=== PATIENT | male | born 1940 | race Caucasian/White ===

== ENCOUNTER → 2017-07-30 13:22 | Outpatient (CLI) | payer MEDICARE, OTHER, SELFPAY ==
--- NOTE | 2017-07-30 13:26 | CT_ITS ---
STUDY: CT BRAIN WITHOUT CONTRAST REASON FOR EXAM: Male, 77 years old. Closed head injury. RADIATION DOSAGE (If Supplied By Facility): CTDIvol = ( 44.99 ) mGy, DLP = ( 829.85 ) mGycm TECHNIQUE: Transaxial CT imaging of the brain was performed without administration of intravenous contrast material. Individualized dose optimization techniques were used for this CT. COMPARISON: None. FINDINGS: Normal soft tissue structures. Normal calvarium. There is mild cerebral atrophy with widening of the extra-axial spaces and ventricular dilatation. Normal white matter tracts of the cerebral hemispheres. Normal basal ganglia and thalami. Normal brainstem. There is mild cerebellar atrophy. There is no intracranial hemorrhage. There are no findings of an acute ischemic infarction. Atherosclerotic calcification of the vertebral arteries and the cavernous portions of the internal carotid arteries bilaterally. Mucosal thickening along the inferior aspect of the right maxillary sinus. CT/Brain/Head without Contrast IMPRESSION: Chronic involutional changes of the brain. Mucosal thickening along the inferior aspect of the right maxillary sinus. Electronically Signed: Zion Longo MD at 14:13 EST Tel [phone], Service support ,
--- NOTE | 2017-07-30 13:27 | CT_ITS ---
STUDY: CT CERVICAL SPINE WITHOUT CONTRAST REASON FOR EXAM: Male, 77 years old. Neck pain. Closed head injury. RADIATION DOSAGE (If Supplied By Facility): CTDIvol = ( 26.26 ) mGy, DLP = ( 529.52 ) mGycm TECHNIQUE: High resolution transaxial imaging was performed without contrast material. Sagittal and coronal images were reconstructed. Individualized dose optimization techniques were used for this CT. COMPARISON: None FINDINGS: Mucosal thickening of the mastoid air cells on the left side. Normal craniovertebral junction. There are degenerative changes of the anterior atlantoaxial articulation. Normal odontoid process. Normal cervical lordosis. Normal vertebral bodies and posterior osseous elements. C2-3: Normal endplates. Normal disc height and morphology. Normal central canal and intervertebral neuroforamina. C3-4: Normal endplates. Normal disc height and morphology. Normal central canal and intervertebral neuroforamina. C4-5: Normal endplates. Normal disc height and morphology. Normal central canal and intervertebral neuroforamina. C5-6: Marked degree of disc space narrowing and degeneration with a spondylosis and uncovertebral arthrosis. Moderate degree of bilateral neural foraminal stenosis. C6-7: Moderate degree of disc space narrowing. Normal visualized soft tissue structures. CT/Spine Cervical without Contras IMPRESSION: Multilevel degenerative changes, as described above. Electronically Signed: Zion Longo MD at 14:16 EST Tel [phone], Service support ,
== END ==
PROVIDERS: Family Provider Family Medicine Geriatric Medicine; PCP Family Medicine Geriatric Medicine; Visit Provider Family Medicine Geriatric Medicine
DX: M54.2 Cervicalgia (principal); S09.90XA Unspecified injury of head, initial encounter; X58.XXXA Exposure to other specified factors, initial encounter; R55 Syncope and collapse
CPT/HCPCS: 36415; 70450; 72125; 80053; 82550; 83874; 84443; 84484; 85025

== ENCOUNTER → 2017-07-31 11:33 | Outpatient (CLI) | payer MEDICARE, OTHER, SELFPAY ==
--- NOTE | 2017-07-31 11:34 | CT_ITS ---
STUDY: CT CHEST WITHOUT CONTRAST REASON FOR EXAM: Male, 77 years old. Cough, exertional shortness of breath, syncope RADIATION DOSAGE (If Supplied By Facility): CTDIvol = ( 18.87 ) mGy, DLP = ( 688.62 ) mGycm TECHNIQUE: Transaxial 2.5 imaging was performed without the administration of intravenous contrast material. Multiplanar coronal and sagittal images were reformatted. This examination is limited for the evaluation of solid organs and vascular structures due to the lack of intravenous contrast. Individualized dose optimization techniques were used for this CT. COMPARISON: None. FINDINGS: There is hyperinflation, very subtle nodular disease in the periphery of the bilateral lower lobes, right middle lobe and lingula. There is additional compression of peripheral dependent parenchyma in the right greater than left lower lobe with mild distortion of parenchyma likely chronic in nature. No focal nodule, masses or air bronchograms. There is no demonstrated pleural abnormality. Normal heart and pericardium. There are calcifications of the coronary arteries. There are multiple small lymph nodes within the mediastinum, which are normal in size and morphology most compatible with reactive lymph hyperplasia. Normal hilar regions. Normal unenhanced pulmonary arteries. There is atherosclerotic calcification of the aortic arch with tortuosity and elongation of the aortic arch and descending thoracic aorta. There are multi-level degenerative changes of the thoracic spine. There is a large hiatal hernia. Right hepatic cyst 1.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 Suspect component of superimposed pneumonitis. Reactive lymphoid hyperplasia in the mediastinum suspected. Other nonacute findings as outlined above.. Electronically Signed: Mckenna Gaines MD at 3:43 EST , Service support ,
== END ==
PROVIDERS: Family Provider Family Medicine Geriatric Medicine; PCP Family Medicine Geriatric Medicine; Visit Provider Nurse Practitioner Acute Care
DX: R06.09 Other forms of dyspnea (principal); R07.9 Chest pain, unspecified; M54.2 Cervicalgia; S09.90XA Unspecified injury of head, initial encounter; X58.XXXA Exposure to other specified factors, initial encounter; R55 Syncope and collapse
CPT/HCPCS: 36415; 70450; 71250; 72125; 80053; 82550; 83874; 84443; 84484; 85025

== ENCOUNTER → 2017-08-22 07:57 | Outpatient (CLI) | payer MEDICARE, OTHER, SELFPAY ==
[2017-08-22 07:10] VITALS: BP 132/78; BMI 29.3
[2017-08-25 12:06] LABS: Alternaria alternata <0.10 kU/L (Class 0); Aspergillus fumigatus <0.10 kU/L (Class 0); Bahia Grass <0.10 kU/L (Class 0); Bermuda Grass <0.10 kU/L (Class 0); Bluegrass, Kentucky <0.10 kU/L (Class 0); Cat Hair/Dander, Standard <0.10 kU/L (Class 0); Cedar, Mountain <0.10 kU/L (Class 0); Cladosporium herbarum <0.10 kU/L (Class 0); Cockroach, American <0.10 kU/L (Class 0); D farinae Mite <0.10 kU/L (Class 0); D pteronyssinus <0.10 kU/L (Class 0); Dog Epithelia <0.10 kU/L (Class 0); Elm, American White <0.10 kU/L (Class 0); Hazelnut Tree <0.10 kU/L (Class 0); Hickory, White <0.10 kU/L (Class 0); Johnson Grass <0.10 kU/L (Class 0); Maple/Box Elder <0.10 kU/L (Class 0); Mucor racemosus <0.10 kU/L (Class 0); Mugwort <0.10 kU/L (Class 0); Mulberry, White <0.10 kU/L (Class 0); Oak, White <0.10 kU/L (Class 0); Penicillium chrysogen <0.10 kU/L (Class 0); Pigweed, Rough <0.10 kU/L (Class 0); Plantain, English <0.10 kU/L (Class 0); Ragweed, Short/Common <0.10 kU/L (Class 0); Sheep Sorrel(Dock) <0.10 kU/L (Class 0); Stemphylium herbarum <0.10 kU/L (Class 0); Sweet Gum <0.10 kU/L (Class 0); Sycamore, American <0.10 kU/L (Class 0)
[2017-08-25 13:00] LABS: Nettle <0.10 kU/L (Class 0)
== END ==
PROVIDERS: Family Provider Family Medicine Geriatric Medicine; PCP Family Medicine Geriatric Medicine; Visit Provider Internal Medicine Critical Care Medicine
DX: J30.9 Allergic rhinitis, unspecified (principal)
CPT/HCPCS: 36415; 86003

== ENCOUNTER → 2017-09-16 10:53 | Outpatient (CLI) | payer MEDICARE, OTHER, SELFPAY ==
[2017-08-20 15:19] VITALS: BP 120/76; BMI 29.2
--- NOTE | 2017-09-16 10:58 | ECHOD_ITS ---
Reason For Study: DYSPNEA Procedure This was a 2D Doppler, Color Flow transthoracic echocardiogram. Exam performed in department. Left Ventricle Mild concentric left ventricular hypertrophy. The estimated ejection fraction is 65 %. Stage 1 diastolic dysfunction. No regional wall motion abnormalities noted. Right Ventricle Normal size and thickness. Normal systolic function. Atria Normal left atrium. Normal right atrium. Normal atrial septum. Bubble contrast study negative for right to left interatrial shunt. Mitral Valve The mitral valve is structurally normal. No prolapse or stenosis seen. Trivial mitral valve insufficiency. Tricuspid Valve Normal tricuspid valve. Trivial tricuspid valve insufficiency. Right ventricular systolic pressure estimated to be 38 mmHg. Mild pulmonary hypertension. Aortic Valve Normal aortic valve. Trisinus/trileaflet aortic valve. Pulmonic Valve Normal pulmonic valve. Trivial pulmonic valve insufficiency. Great Vessels Normal aortic root. Normal arch. Normal inferior vena cava. Inferior vena cava collapse with sniff. Pericardium/Pleural No pericardial effusion. Medication 22 gauge I.V. with prn adaptor inserted into right arm. Performed a rapid injection of agitated mix of 9 cc saline and 1cc air to assess for atrial septal defect. MMode/2D Measurements & Calculations LVIDd: 4.1 cm IVSd: 1.2 cm Ao root diam: 3.0 cm LVIDs: 2.7 cm LVPWd: 1.3 cm LA dimension: 3.6 cm RVDd: 3.5 cm FS: 35.3 % LAV(MOD-bp): 62.0 ml EDV(MOD-sp4): 138.0 ml EDV(MOD-sp2): 114.0 ml LAV(MOD-bp) Indexed: 26.3 ml/m2 ESV(MOD-sp4): 40.1 ml EF(MOD-sp2): 60.9 % LAV(MOD-sp2): 53.9 ml EF(MOD-sp4): 71.0 % LAV(MOD-sp4): 68.7 ml SV(MOD-sp4): 98.0 ml SV(MOD-sp2): 69.4 ml LA A4 area: 23.2 cm2 RA A4 area: 16.7 cm2 Doppler Measurements & Calculations MV E max kendall: 73.8 cm/sec Ao V2 max: 177.2 cm/sec AI max kendall: 402.1 cm/sec MV A max kendall: 92.9 cm/sec Ao max P.6 mmHg AI max P.7 mmHg MV E/A: 0.79 AI dec slope: 242.8 cm/sec2 AI P1/2t: 485.0 msec LV V1 max: 167.9 cm/sec PA V2 max: 186.0 cm/sec TR max kendall: 267.4 cm/sec LV V1 max P.3 mmHg TR max P.9 mmHg Interpretation Summary Mild concentric left ventricular hypertrophy. The estimated ejection fraction is 65 %. Stage 1 diastolic dysfunction. Bubble contrast study negative for right to left interatrial shunt. Trivial mitral valve insufficiency. Trivial tricuspid valve insufficiency. Right ventricular systolic pressure estimated to be 38 mmHg. Mild pulmonary hypertension. There is no comparison study available. Ordering Physician: Baltazar Tony Referring Physician: Mars Eddy Chi Performed By: Riri Jeff RDCS, RVT
== END ==
PROVIDERS: Family Provider Family Medicine Geriatric Medicine; PCP Family Medicine Geriatric Medicine; Visit Provider Internal Medicine Cardiovascular Disease
DX: R55 Syncope and collapse (principal)
CPT/HCPCS: 93306; A4216

== ENCOUNTER → 2017-09-18 10:34 | Outpatient (CLI) | payer MEDICARE, OTHER, SELFPAY ==
[2017-08-20 15:19] VITALS: BP 120/76; BMI 29.2
--- NOTE | 2017-09-18 10:35 | STE_ITS ---
Reason For Study: DYSPNEA Stress Results Protocol: Yazan Protocol Maximum Predicted HR: 142 bpm Target HR: 121 bpm% Max imum Predicted HR: 100 % DurationHeart Rate Stage (mm:ss) (bpm) BP BASELINE 70 112/62 STAGE 1 3:00 11 6 168/72 STAGE 2 3:00 13 6 180/64 STAGE 3 0:35 14 2 / RECOVERY 100 130/7 8 Stress Duration: 6:35 mm:ss Maximum Stress HR: 142 bpm Baseline Echocardiogram Findings The estimated ejection fraction is 65 %. Stress Echo Wall motion Data Resting WMIntermediate WMStress WM Resting Wall Motion Wall Motion Stress No regional wall motion No regional wall motion abnormalities noted. abnormalities noted. EKG Data Normal intervals are noted. The patient exercised according to the regular Yazan protocol for a total duration of 6:35. The maximum heart rate attained was 146 beats per minute. This was 102% of maximum predicted heart rate. The patient exercised into stage 3 of the Yazan protocol. During stress, there were no ST or T wave changes noted to suggest ischemia. No clinical angina was noted. Interpretation Summary The estimated ejection fraction is 65 %. Normal normal adequate treadmill echocardiogram. Negative for ischemia by EKG and echocardiographic criteria. No anginal symptoms noted. Rare PAC and PVCs during exercise and into recovery. Appropriate blood pressure response to exercise. Average exercise capacity for age. Test terminated due to the attainment of target heart rate and dyspnea. Final LVEF is 75%. Patient tolerated procedure well. No complications. Ordering Physician: Baltazar Tony Referring Physician: Baltazar Tony Performed By: Estephanie Goldman, DANIA, RVT
== END ==
PROVIDERS: Family Provider Family Medicine Geriatric Medicine; PCP Family Medicine Geriatric Medicine; Visit Provider Internal Medicine Cardiovascular Disease
DX: R55 Syncope and collapse (principal); R06.00 Dyspnea, unspecified
CPT/HCPCS: 93017; 93350

== ENCOUNTER → 2017-12-06 20:12 | Outpatient (CLI) | payer MEDICARE, OTHER, SELFPAY | PROVIDERS: Family Provider Family Medicine Geriatric Medicine; PCP Family Medicine Geriatric Medicine; Visit Provider Nurse Practitioner Acute Care | DX: G47.19 Other hypersomnia (principal) | CPT/HCPCS: 95810 ==

== ENCOUNTER → 2018-01-02 19:58 | Outpatient (CLI) | payer MEDICARE, OTHER, SELFPAY | PROVIDERS: Family Provider Family Medicine Geriatric Medicine; PCP Family Medicine Geriatric Medicine; Visit Provider Nurse Practitioner Acute Care | DX: G47.33 Obstructive sleep apnea (adult) (pediatric) (principal) | CPT/HCPCS: 95811 ==

== ENCOUNTER → 2018-02-18 15:26 | Outpatient (CLI) | payer MEDICARE, OTHER, SELFPAY ==
[2018-02-18 18:19] LABS: Absolute Lymphocyte Count 1.15 X10^3/ul (0.83-4.51); Absolute Neutrophil Count 4.9 X10^3/uL (2.0-7.7); Basophil# 0.02 X10^3/uL; Basophil% 0.3 % (0-1); Eosinophil# 0.14 X10^3/uL; Hematocrit 28.9 % (40-54); Hemoglobin 8.3 g/dl (13.0-16.5); Lymphocyte # 1.15 X10^3/ul (4.0); Lymphocyte % 16.5 % (19-41); Mean Corp Hgb Conc 28.7 g/gl (32-36); Mean Corpuscular Hgb 19.9 pg (27.0-32.0); Mean Corpuscular Volume 69.3 fL (80-94); Monocyte# 0.72 X10^3/uL; Monocyte% 10.4 % (0-10); Neutrophil # 4.92 X10^3/uL (2.7-7.7); Neutrophil % 70.8 % (47-70); Platelet Count 432 K/mm3 (150-450); RBC Distribution Width CV 19.2 % (11.6-14.6); RBC Distribution Width SD 47.6 fl (35.1-43.9); Red Blood Count 4.17 M/mm3 (4.6-6.2)
[2018-02-18 18:24] LABS: Differential Indicated SCAN CRITERIA MET; POSITIVE COUNT NO; POSITIVE DIFFERENTIAL NO; POSITIVE MORPHOLOGY YES
[2018-02-18 18:37] LABS: ALB/GLOB Ratio 0.9 RATIO (0.9-2.4); AST(SGOT) 16 U/L (15-37); Alanine Aminotransfer ALT/SGPT 23 U/L (16-61); Albumin, Serum 3.7 g/dL (3.2-5.0); Alkaline Phosphatase 51 U/L (45-117); Anion Gap 6 (5-15); BUN 18 mg/dL (7-18); BUN/Creat Ratio 14.9 RATIO (10-20); Calcium,Total 8.3 mg/dL (8.5-10.1); Chloride 108 mmol/L (98-107); Creatinine, Serum 1.21 mg/dL (0.70-1.30); EST Glomerular Filtration Rate 62 mL/min (>60); Est Glom Filt Rate - Afr Amer 74 mL/min (>60); Glucose 93 mg/dL (74-106); Potassium 4.2 mmol/L (3.5-5.1); Protein, Total 7.7 g/dL (6.4-8.2); Sodium Level 140 mmol/L (136-145); Thyroid Stim Hormone (TSH) 1.23 uIU/mL (0.358-3.74)
[2018-02-18 19:07] LABS: Platelet Estimate SLT INC (ADEQ)
[2018-02-18 19:08] LABS: Anisocytosis 1+; Hypochromasia 2+; Microcytosis 1+
[2018-02-19 09:48] LABS: Vitamin D,25 Hydroxy 30.9 ng/mL (29.95-100.01)
== END ==
PROVIDERS: Family Provider Family Medicine Geriatric Medicine; PCP Family Medicine Geriatric Medicine; Visit Provider Family Medicine Geriatric Medicine
DX: E23.6 Other disorders of pituitary gland (principal); E55.9 Vitamin D deficiency, unspecified; I10 Essential (primary) hypertension
CPT/HCPCS: 36415; 80053; 82306; 84403; 84443; 85025

== ENCOUNTER → 2018-02-20 10:22 | Outpatient (CLI) | payer MEDICARE, OTHER, SELFPAY ==
[2018-02-20 12:52] LABS: Hematocrit 29.6 % (40-54); Hemoglobin 8.3 g/dl (13.0-16.5); Immature Platelet Fraction 1.2 % (1.0-7.9); Mean Corpuscular Hgb 19.4 pg (27.0-32.0); Mean Corpuscular Volume 69.3 fL (80-94); Mean Platelet Vol. 8.4 fl (6.2-12.0); Platelet Count 375 K/mm3 (150-450); RBC Distribution Width CV 18.9 % (11.6-14.6); RBC Distribution Width SD 47.7 fl (35.1-43.9); RET-HE 16.6 pg (30-35); Red Blood Count 4.27 M/mm3 (4.6-6.2); Reticulocyte Count 1.07 % (0.5-1.5); White Blood Count 5.5 K/mm3 (4.4-11.0)
[2018-02-20 12:55] LABS: Scan Indicated on CBC? Y/N YES- FLAGS NOTED
[2018-02-20 13:05] LABS: Ferritin 5 ng/mL (26-388); Iron 21 ug/dL (65-175); Iron Binding Capacity,Total 439 ug/dL (250-450); PERCENT IRON SATURATION 4.8 % (15.0-55.0)
[2018-02-21 10:04] LABS: Vitamin B12 > 2000 pg/mL (211-911)
== END ==
PROVIDERS: Family Provider Family Medicine Geriatric Medicine; PCP Family Medicine Geriatric Medicine; Visit Provider Family Medicine Geriatric Medicine
DX: D64.9 Anemia, unspecified (principal)
CPT/HCPCS: 36415; 82607; 82728; 83540; 83550; 85027; 85045

== ENCOUNTER 2018-03-04 09:55 | Day surgery (SDC) | payer MEDICARE, OTHER, SELFPAY ==
[2018-03-04] VITALS (8 sets, daily range): BP systolic 118–183; BP diastolic 53–107; PULSE 70–76; RESP 14–16; TEMP 36.1–37.6; O2SAT 94–100; BMI 29.3
--- NOTE | 2018-03-04 | IMM_PTH ---
PATIENT: CINDY COSTA LOC: EN U#:[id number] AGE/SX: 77/M ROOM: RE03/04/[address]: Dr. Gaston Rausch MD : 1940 BED: DIS: 03/04/2018 SPEC #: [id number] RECD: 03/05/18 13:15 STATUS: BLANKA REVijaya #: [id number] LONNIE: 03/04/18 00:[address]: Gaston Rausch DEPT: IMMUNOHISTOCHEMISTRY RECD BY: Marly Chavez ENTERED: 03/05/18 13:15 SP TYPE: IMMUNO OTHR DR: Dr. Mars Eddy MD Tissues: B - Stomach, NOS Procedures: H Pylori (initial) PHYSICIAN & INSTITUTION [place] [id number] SPECIMEN INFORMATION: Tissue Source: B ? Antral biopsy Clinical Info: Iron deficiency anemia Specimen Number: [id number] CPT code: 24484 METHODOLOGY: Deparaffinized sections of prefer/formalin-fixed tissue or PAP/DQ stained slides are incubated with monoclonal/polyclonal antibodies/oligonucleotide probes. Localization is made via biotin free immunoperoxidase method. Appropriate controls are performed and reacted as expected. Results on target cell population are indicated in the following table: RESULTS: ANTIBODY / CLONE RESULT Block B H Pylori (polyclonal) negative These tests were developed and their performance characteristics determined by [facility]. They may not have been cleared or approved by the [place]. Food and Drug Administration. The FDA has determined that such clearance or approval is not necessary. INTERPRETATION: B. Antral biopsy: Negative for Helicobacter pylori organisms. SJ:carols 03/06/18
--- NOTE | 2018-03-04 | COLBX_PTH ---
PATIENT: CINDY COSTA LOC: EN U#:[id number] AGE/SX: 77/M ROOM: RE03/04/[address]: Dr. Gaston Rausch MD : 1940 BED: DIS: 03/04/2018 SPEC #: [id number] RECD: 03/04/18 14:33 STATUS: BLANKA SCOTT #: [id number] LONNIE: 03/04/18 00:[address]: Gaston Rausch DEPT: SURGICAL PATHOLOGY RECD BY: Neftali Knight ENTERED: 03/04/18 14:34 SP TYPE: COLON BX OTHR DR: Dr. Mars Eddy MD Tissues: A - Duodenum, NOS B - Gastric mucous membrane C - Esophageal mucous membrane D - COLON BIOPSY Procedures: Special Stain Group II Surgery Specimen Level IV Alcian Blue/PAS (control) HEADER OPERATION: Colonoscopy, EGD (MOD) PRE-OP DIAGNOSIS: Iron deficiency anemia TISSUE SUBMITTED: A ? Duodenal biopsy, B ? Antral biopsy, C ? Distal esophagus biopsy, D ? Random colonic biopsy MICROSCOPIC DIAGNOSIS A. Duodenal biopsy: A fragment of duodenal mucosa with mild nonspecific chronic inflammation. B. Antral biopsy: Mild gastritis. Focal intestinal metaplasia (goblet cell metaplasia). See comment. C. Distal esophagus, biopsy: Fragments of squamous epithelium with minimal chronic inflammation. D. Colon, random biopsy: Fragments of colonic mucosa with pigment laden macrophages consistent with melanosis coli. SJ:carlos 03/05/18 COMMENT B. The results of immunohistochemistry for Helicobacter pylori will be reported separately ([id number]). Alcian blue/PAS stain with matched control is used in the evaluation of the specimen. MICROSCOPIC DESCRIPTION Slides are reviewed. B. The specimen shows fragments of gastric mucosa with chronic inflammatory cell infiltrates in the lamina propria consisting of lymphocytes and plasma cells, consistent with mild chronic gastritis. Focal intestinal metaplasia is also noted. GROSS DESCRIPTION A - Received in fixative is one container labeled with the patient's name and designated biopsy duodenum. The specimen consists of one irregular fragment of light lee soft tissue that measures 0.5 x 0.2 x 0.1 cm. The specimen is totally submitted in one cassette. B - Received in fixative is one container labeled with the patient's name and designated biopsy gastric antrum. The specimen consists of two irregular fragments of light lee soft tissue that in aggregate measure 0.4 x 0.3 x 0.1 cm. The specimen is totally submitted in one cassette. C - Received in fixative is one container labeled with the patient's name and designated distal esophagus biopsy. The specimen consists of two irregular fragments of light lee soft tissue that in aggregate measure 0.3 x 0.2 x 0.1 cm. The specimen is totally submitted in one cassette. D - Received in fixative is one container labeled with the patient's name and designated random colon biopsy. The specimen consists of multiple irregular fragments of brownish soft tissue that in aggregate measure 1 x 0.3 x 0.1 cm. The specimen is totally submitted in one cassette. / SJ:rg 03/04/18 TC:5 CPT: 89067 x4, 17978
--- NOTE | 2018-03-04 12:52 | PCM.OPRPT ---
Problem List (1) Iron deficiency anemia Status: Acute Qualifiers: Iron deficiency anemia type: unspecified iron deficiency Report of Operation Date of Procedure: 03/04/18 Pre-Operative Diagnosis: Iron deficiency anemia Post-Operative Diagnosis: Small hiatal hernia, minimal antral and duodenal erythema. No evidence for active upper gastrointestinal bleeding. Severe melanosis coli, extensive descending and sigmoid diverticulosis, no evidence for active colonic bleeding Surgery/Procedure Performed:: Esophagogastroduodenoscopy with biopsies with cold forceps. Colonoscopy Description of Surgical Findings:: Amount informed consent was obtained. 77-year-old gentleman was taken to the endoscopy suite. He had his oropharynx anesthetized with Topex. He was placed in left lateral decubitus position. Throughout the procedure in aliquots she received total 150 mg of Demerol and 5 mg Versed is intravenous sedation. Videogastroscope was inserted into the esophageal inlet. The proximal mid distal esophagus did not appear to be remarkable. The EG junction was at 40 cm. Small hiatal hernia noted. No acute findings of reflux. The scope was advanced in the stomach very minimal amount of antral erythema noted. The scope was advanced through the pylorus the first and second portion of the duodenum were inspected no gross abnormalities. Minimal erythema of the duodenal bulb. Cold forcep biopsy was obtained of the duodenal bulb and of the antrum. The scope was withdrawn back into the stomach retroflexed the EG junction cardia inspected. The hiatal hernia noted. The cardia nicely noted. No evidence for active GI bleeding. The scope was placed back in in antegrade viewing position and greater and lesser curvatures were again inspected without abnormality. Excess fluid and air was aspirated free. The scope was carefully withdrawn through the esophagus without additional abnormality. Digital rectal exam performed. Moderate internal/external hemorrhoids no blood in the examining glove. Prostate was difficult to palpate but no gross masses noted. Flexible colonoscope was in the rectum and advanced through a very tortuous sigmoid colon elongated colon. Scope was advanced through the transverse colon with the assistance of transabdominal pressure is advanced to the ascending colon. He did require effort to access the cecum. Some transabdominal pressure was required. I felt that I did achieve the cecum. The entire endoscopy was difficult due to the degree of melanosis coli which absorb to light. There was also only a fair bowel prep as he was still liquidy stool located throughout the colon which had to be irrigated and aspirated. I withdrew the scope from the cecum ascending colon transverse colon descending colon. Random colonic biopsies were obtained. No active bleeding. There was severe diverticulosis of the descending and sigmoid colon. Scope was retroflexed within the rectum. Some moderate hemorrhoidal changes noted but no active bleeding. Excess fluid and air was aspirated free the procedure was completed with the patient tolerating it well. Impression Hiatal hernia, minimal erythema of the antrum and duodenal bulb. Cold forcep biopsies pending. No evidence for upper gastrointestinal hemorrhage. Severe melanosis coli. Severe diverticulosis of the descending and sigmoid colon. No evidence for acute colonic bleeding. She had reported in the office had a stool for Hemoccult had been negative. I will copy Dr. Eddy and at this point it would seem reasonable for conservative follow-up. If the patient demonstrates ongoing suggestion of possible GI bleeding then I would consider a small bowel follow-through. Medications were given at 07/16/2008. Scope was inserted at 1212. The upper scope was completed at 1216. The colonoscopy started a 1-2 oh. The cecum was reached at 1235. The procedure was completed at 1246. Cc: Dr. Surjit Rausch M.D., F.A.C.S. Type of Anesthesia:: IV Sedation
== END 2018-03-04 13:57 | disposition home or self-care (01) ==
LOC: EN 09:59 → AC 10:00
PROVIDERS: Family Provider Family Medicine Geriatric Medicine; PCP Family Medicine Geriatric Medicine; Visit Provider Surgery
PROC: 0DJD8ZZ Inspection of Lower Intestinal Tract, Via Natural or Artificial Opening Endoscopic (ICD-10-PCS; CPT 45378; principal; 2018-03-04 11:25)
DX: K29.70 Gastritis, unspecified, without bleeding (principal); K44.9 Diaphragmatic hernia without obstruction or gangrene; K57.30 Diverticulosis of large intestine without perforation or abscess without bleeding; K64.8 Other hemorrhoids; K64.4 Residual hemorrhoidal skin tags; Q43.8 Other specified congenital malformations of intestine; K63.89 Other specified diseases of intestine; D50.9 Iron deficiency anemia, unspecified; G47.33 Obstructive sleep apnea (adult) (pediatric); J30.9 Allergic rhinitis, unspecified; I10 Essential (primary) hypertension; E78.5 Hyperlipidemia, unspecified; K21.9 Gastro-esophageal reflux disease without esophagitis; Z79.82 Long term (current) use of aspirin; Z79.899 Other long term (current) drug therapy
CPT/HCPCS: 43239; 45380; 88305; 88313; 88342; 99152; 99153; J7120

== ENCOUNTER → 2018-03-18 08:38 | Outpatient (CLI) | payer MEDICARE, OTHER, SELFPAY | PROVIDERS: Family Provider Family Medicine; PCP Family Medicine; Visit Provider Surgery | DX: R19.7 Diarrhea, unspecified (principal); R10.9 Unspecified abdominal pain | CPT/HCPCS: 74250 ==

== ENCOUNTER → 2018-03-21 08:10 | Outpatient (CLI) | payer MEDICARE, OTHER, SELFPAY ==
[2018-03-21 11:03] LABS: Hematocrit 34.6 % (40-54); Hemoglobin 9.7 g/dl (13.0-16.5); Mean Corpuscular Volume 74.7 fL (80-94); Mean Platelet Vol. 8.7 fl (6.2-12.0); Platelet Count 310 K/mm3 (150-450); RBC Distribution Width CV 24.3 % (11.6-14.6); RBC Distribution Width SD 64.6 fl (35.1-43.9); Red Blood Count 4.63 M/mm3 (4.6-6.2); White Blood Count 4.6 K/mm3 (4.4-11.0)
[2018-03-21 11:08] LABS: Scan Indicated on CBC? Y/N YES- FLAGS NOTED
== END ==
PROVIDERS: Family Provider Family Medicine; PCP Family Medicine; Visit Provider Surgery
DX: D64.9 Anemia, unspecified (principal)
CPT/HCPCS: 36415; 85027

== ENCOUNTER → 2018-03-28 08:11 | Outpatient (CLI) | payer MEDICARE, OTHER, SELFPAY ==
[2018-03-28 10:19] LABS: Immature Platelet Fraction 1.2 % (1.0-7.9); RET-HE 25.1 pg (30-35); Reticulocyte Count 0.78 % (0.5-1.5)
[2018-03-28 10:45] LABS: Ferritin 11 ng/mL (26-388); Iron Binding Capacity,Total 387 ug/dL (250-450)
[2018-03-28 10:58] LABS: Vitamin B12 1426 pg/mL (211-911)
== END ==
PROVIDERS: Family Provider Family Medicine; PCP Family Medicine; Visit Provider Family Medicine
DX: D64.9 Anemia, unspecified (principal)
CPT/HCPCS: 36415; 82607; 82728; 83550; 85045

== ENCOUNTER → 2018-04-30 09:21 | Outpatient (CLI) | payer MEDICARE, OTHER, SELFPAY ==
[2018-04-30 12:30] LABS: Absolute Lymphocyte Count 1.13 X10^3/ul (0.83-4.51); Absolute Neutrophil Count 3.1 X10^3/uL (2.0-7.7); Basophil# 0.02 X10^3/uL; Basophil% 0.4 % (0-1); Eosinophil# 0.11 X10^3/uL; Eosinophils% 2.2 % (0-5); Hematocrit 41.7 % (40-54); Hemoglobin 13.1 g/dl (13.0-16.5); Lymphocyte # 1.13 X10^3/ul (4.0); Lymphocyte % 22.9 % (19-41); Mean Corp Hgb Conc 31.4 g/gl (32-36); Mean Corpuscular Hgb 25.5 pg (27.0-32.0); Mean Corpuscular Volume 81.1 fL (80-94); Monocyte# 0.54 X10^3/uL; Neutrophil # 3.13 X10^3/uL (2.7-7.7); Neutrophil % 63.5 % (47-70); Platelet Count 280 K/mm3 (150-450); RBC Distribution Width SD 67.6 fl (35.1-43.9); RET-HE 35.3 pg (30-35); Red Blood Count 5.14 M/mm3 (4.6-6.2); White Blood Count 4.9 K/mm3 (4.4-11.0)
[2018-04-30 12:38] LABS: Differential Indicated SCAN CRITERIA MET; POSITIVE COUNT NO; POSITIVE DIFFERENTIAL NO; POSITIVE MORPHOLOGY YES
[2018-04-30 12:47] LABS: Anisocytosis 1+; Platelet Estimate ADEQUATE (ADEQ); Red Cell Morphology N CHROM NORMAL (NORM C&C)
[2018-04-30 12:57] LABS: Ferritin 22 ng/mL (26-388); Iron 61 ug/dL (65-175); Iron Binding Capacity,Total 360 ug/dL (250-450)
== END ==
PROVIDERS: Family Provider Family Medicine; PCP Family Medicine; Visit Provider Family Medicine
DX: D64.9 Anemia, unspecified (principal)
CPT/HCPCS: 36415; 82728; 83540; 83550; 85025; 85045

== ENCOUNTER → 2018-07-30 10:28 | Outpatient (CLI) | payer MEDICARE, OTHER, SELFPAY ==
[2018-07-30 10:28] VITALS: BMI 29.3
[2018-07-30 12:02] LABS: Hematocrit 44.8 % (40-54); Hemoglobin 14.8 g/dl (13.0-16.5); Immature Platelet Fraction 1.3 % (1.0-7.9); Mean Corpuscular Hgb 29.5 pg (27.0-32.0); Mean Corpuscular Volume 89.2 fL (80-94); Mean Platelet Vol. 8.8 fl (6.2-12.0); Platelet Count 264 K/mm3 (150-450); RBC Distribution Width CV 14.5 % (11.6-14.6); RET-HE 32.4 pg (30-35); Red Blood Count 5.02 M/mm3 (4.6-6.2); White Blood Count 5.5 K/mm3 (4.4-11.0)
[2018-07-30 12:05] LABS: Scan Indicated on CBC? Y/N NO
[2018-07-30 12:27] LABS: Ferritin 44 ng/mL (26-388); Iron 122 ug/dL (65-175); Iron Binding Capacity,Total 296 ug/dL (250-450)
--- OUTSIDE RECORDS SUMMARY | 2018-10-04 05:16 | XMS RPT_ITS ---
:1940 Author Organization OHIP Support Name Relationship Address Phone R Unavailable Unavailable Unavailable JUN COSTA Unavailable [address] + [place] [address] R Unavailable Unavailable Unavailable JUN COSTA Unavailable [address] + [place] [address] R Unavailable Unavailable Unavailable JUN COSTA Unavailable [address] + [place] [address] R Unavailable Unavailable Unavailable JUN COSTA Unavailable [address] + [place] [address] R Unavailable Unavailable Unavailable JUN COSTA Unavailable [address] + [place] [address] R Unavailable Unavailable Unavailable JUN COSTA Unavailable [address] + [place] [address] R Unavailable Unavailable Unavailable JUN COSTA Unavailable [address] + [place] [address] NAVNEET NIEVES Unavailable [address] + [place] [address] R Unavailable Unavailable Unavailable JUN COSTA Unavailable [address] + [place] [address] NAVNEET NIEVES Unavailable [address] + [place] [address] R Unavailable Unavailable Unavailable JUN COSTA Unavailable [address] + [place] [address] NAVNEET NIEVES Unavailable [address] + [place] [address] R Unavailable Unavailable Unavailable JUN COSTA Unavailable [address] + [place] [address] NAVNEET NIEVES Unavailable [address] + [place] [address] R Unavailable Unavailable Unavailable JUN COSTA Unavailable [address] + [place] [address] NIEVES NAVNEET Unavailable [address] + [place] [address] R Unavailable Unavailable Unavailable JUN COSTA Unavailable [address] + [place] [address] NIEVES, NAVNEET Unavailable [address] + [place] [address] R Unavailable Unavailable Unavailable JUN COSTA Unavailable [address] + [place] [address] NIEVES, NAVNEET Unavailable Unavailable + [place] [address] R Unavailable Unavailable Unavailable JUN COSTA Unavailable [address] + [place] [address] NIEVES, NAVNEET Unavailable Unavailable + [place] [address] R Unavailable Unavailable Unavailable JUN COSTA Unavailable [address] + [place] [address] NIEVES, NAVNEET Unavailable NA + [place] [address] R Unavailable Unavailable Unavailable JUN COSTA Unavailable [address] + [place] [address] NIEVES, NAVNEET Unavailable NA + [place] [address] R Unavailable Unavailable Unavailable JUN COSTA Unavailable [address] + [place] [address] NIEVES, NAVNEET Unavailable NA + [place] [address] R Unavailable Unavailable Unavailable JUN COSTA Unavailable [address] + [place] [address] NIEVES, NAVNEET Unavailable NA + [place] [address] R Unavailable Unavailable Unavailable JUN COSTA Unavailable [address] + [place] [address] NIEVES, NAVNEET Unavailable NA + [place] [address] R Unavailable Unavailable Unavailable JUN COSTA Unavailable [address] + [place] [address] NAVNEET NIEVES Unavailable NA + [place] [address] R Unavailable Unavailable Unavailable JUN COSTA Unavailable [address] + [place] [address] NAVNEET NIEVES Unavailable [address] + [place] [address] R Unavailable Unavailable Unavailable JUN COSTA Unavailable [address] [phone] [place] [address] NAVNEET NIEVES Unavailable [address] + [place] [address] R Unavailable Unavailable Unavailable JUN COSTA Unavailable [address] [phone] [place] [address] NAVNEET NIEVES Unavailable NA + [place], [place] R Unavailable Unavailable Unavailable JUN COSTA Unavailable [address] + [place] [address] NAVNEET NIEVES Unavailable [address] + [place] [address] R Unavailable Unavailable Unavailable JUN COSTA Unavailable [address] [phone] [place] [address] Care Team Providers Name Role Phone David Nava Attending Unavailable David Nava Primary Care Unavailable Brooklyn Merrill Attending Unavailable Baltazar Tony Attending Unavailable Surjit, Mars Chi Referring Unavailable Surjit, Mars Chi Primary Care Unavailable Kash Calle D.O. Attending Unavailable Surjit, Mars Chi Referring Unavailable Surjit, Mars Chi Primary Care Unavailable Kash Calle D.O. Attending Unavailable Kash Calle D.O. Referring Unavailable Surjit, Mars Chi Primary Care Unavailable Baltazar Tony Attending Unavailable Baltazar Tony Referring Unavailable Surjit, Mars Chi Primary Care Unavailable Baltazar Tony Attending Unavailable Baltazar Tony Referring Unavailable Surjit, Mars Chi Primary Care Unavailable Lissette Flores Attending Unavailable Surjit, Mars Chi Referring Unavailable Baltazar Tony Attending Unavailable Baltazar Tony Attending Unavailable Baltazar Tony Referring Unavailable Lissette Flores Attending Unavailable Surjit, Mars Chi Referring Unavailable Lissette Flores Attending Unavailable Surjit, Mars Chi Primary Care Unavailable Lissette Flores Attending Unavailable Surjit, Mars Chi Primary Care Unavailable Lissette Flores Attending Unavailable Surjit, Mars Chi Referring Unavailable Surjit, Mars Chi Primary Care Unavailable Surjit, Mars Chi Attending Unavailable Surjit, Mars Chi Primary Care Unavailable Surjit, Mars Chi Attending Unavailable Surjit, Mars Chi Primary Care Unavailable Cebul, Gaston Attending Unavailable Surjit, Mars Chi Referring Unavailable Surjit, Mars Chi Primary Care Unavailable Cebul, Gaston Attending Unavailable Surjit, Mars Chi Primary Care Unavailable Cebul, Gaston Referring Unavailable Cebul, Gaston Attending Unavailable Cebul, Gaston Referring Unavailable Surjit, Mars Chi Primary Care Unavailable Cebul, Gaston Consulting Unavailable Cebul, Gaston Attending Unavailable Cebul, Gaston Referring Unavailable Nava, David Primary Care Unavailable Kash Calle D.O. Attending Unavailable Surjit, Mars Chi Referring Unavailable Baltazar Tony Attending Unavailable Surjit, Mars Chi Referring Unavailable Cebul, Gaston Attending Unavailable Nava, David Primary Care Unavailable Nava, David Attending Unavailable Nava, David Primary Care Unavailable Nava, David Attending Unavailable Nava, David Primary Care Unavailable PROBLEMS PROBLEMS DATE TYPE CONDITION / CODE ATTENDING STATUS SOURCE 03/28/2018 Unknown D64.9 - Anemia, David Nava Active [facility] unspecified / Community D64.9(ICD-10) Hospital Repository 01/02/2018 Unknown G47.33 - Flores, Active [facility] Obstructive sleep [facility] apnea (adult) Hospital (pediatric) / Repository G47.33(ICD-10) 12/06/2017 Unknown G47.19 - Other Flores, Active [facility] hypersomnia / [facility] G47.19(ICD-10) Hospital Repository 10/25/2017 Unknown R06.02 - Shortness Baltazar Tony Active [facility] of breath / Community R06.02(ICD-10) Hospital Repository 08/22/2017 Unknown J30.9 - Allergic Kash Calle, Active [facility] rhinitis, D.O. Community unspecified / Hospital J30.9(ICD-10) Repository 08/22/2017 Unknown R05 - Cough / Kash Calle, Active [facility] R05(ICD-10) D.O. [facility] Repository 08/23/2017 Unknown R55 - Syncope and Baltazar Tony Active [facility] collapse / Community R55(ICD-10) Hospital Repository 08/23/2017 Unknown I10 - Essential Baltazar Tony Active [facility] (primary) Community hypertension / Hospital I10(ICD-10) Repository PROCEDURES PROCEDURES No Procedure Records FoundRESULTS RESULTS CBC-COMPLETE BLOOD CNT Collected: 07/30/2018 Status: F Source: [facility] NO DIFF 10:29 AM [facility] REPOSITORY TYPE CODE TESTS RESULT OUT OF RANGE REFERENCE UNITS LAB L100.1000 4.4-11.0 K/mm3 Normal WBC 5.5 LAB L100.1200 4.6-6.2 M/mm3 Normal RBC 5.02 LAB L100.1300 13.0-16.5 g/dl Normal HGB 14.8 LAB L100.1400 40-54 % Normal HCT 44.8 LAB L100.1500 80-94 fL Normal MCV 89.2 LAB L100.1600 27.0-32.0 pg Normal MCH 29.5 LAB L100.1700 32-36 g/gl Normal MCHC 33.0 LAB L100.1810 11.6-14.6 % Normal RDW CV 14.5 LAB L100.1820 35.1-43.9 fl High RDW SD 47.0 LAB L100.1900 150-450 K/mm3 Normal PLT 264 LAB L100.2000 6.2-12.0 fl Normal MPV 8.8 Performed By: #### L100.0500, L100.9950, L503.6075, L503.6150, L503.6550 #### [facility] [address] [place], [address] RETIC PANEL Collected: 07/30/2018 Status: F Source: [place] 10:29 AM [facility] REPOSITORY TYPE CODE TESTS RESULT OUT OF RANGE REFERENCE UNITS LAB L101.0000 0.5-1.5 % Normal RETIC 1.00 LAB L101.0060 3.00-15.90 % IM Normal RET FRACTION 8.70 LAB L101.0090 30-35 pg Normal RET-HE 32.4 LAB L101.0110 1.0-7.9 % Normal IPF 1.3 Result Comment: Low PLT + Low IPF suggest a bone marrow production disorder Low PLT + high IPF suggests peripheral destruction (e.g.ITP, TTP, HIT, DIC, autoimmune) or bone marrow recovery Trending of serial IPF measurements is recommended when evaluating for bone marrow respones Value above normal range indicates an increase in RBC cellular response from bone marrow. Performed By: #### L100.0500, L100.9950, L503.6075, L503.6150, L503.6550 #### [facility] [address] [place], [place], [address] IRON BINDING Collected: 07/30/2018 Status: F Source: [facility],TOTAL 10:29 AM [facility] REPOSITORY TYPE CODE TESTS RESULT OUT OF RANGE REFERENCE UNITS LAB L503.6075 250-450 ug/dL Normal TIBC 296 Performed By: #### L100.0500, L100.9950, L503.6075, L503.6150, L503.6550 #### [facility] [address] [place], [place], [address] IRON Collected: 07/30/2018 Status: F Source: [place] 10:29 AM [facility] REPOSITORY TYPE CODE TESTS RESULT OUT OF RANGE REFERENCE UNITS LAB L503.6150 65-175 ug/dL Normal IRON 122 Performed By: #### L100.0500, L100.9950, L503.6075, L503.6150, L503.6550 #### [facility] [address] [place], [place], [address] FERRITIN Collected: 07/30/2018 Status: F Source: [place] 10:29 AM [facility] REPOSITORY TYPE CODE TESTS RESULT OUT OF RANGE REFERENCE UNITS LAB L503.6550 26-388 ng/mL Normal FERRITIN 44 Performed By: #### L100.0500, L100.9950, L503.6075, L503.6150, L503.6550 #### [facility] [address] [place], [address] CBC W/DIFF, AUTOMATED Collected: 04/30/2018 Status: F Source: [place] 9:22 AM [facility] REPOSITORY Order Comment: Order Date: 04/02/18 Order Info: [id number] - CBCD Comments: cc copy to Dr. Rausch Order Info: [id number] - [place]IC TYPE CODE TESTS RESULT OUT OF RANGE REFERENCE UNITS LAB L100.1000 4.4-11.0 K/mm3 Normal WBC 4.9 LAB L100.1200 4.6-6.2 M/mm3 Normal RBC 5.14 LAB L100.1300 13.0-16.5 g/dl Normal HGB 13.1 LAB L100.1400 40-54 % Normal HCT 41.7 LAB L100.1500 80-94 fL Normal MCV 81.1 LAB L100.1600 27.0-32.0 pg Low MCH 25.5 LAB L100.1700 32-36 g/gl Low MCHC 31.4 LAB L100.1810 11.6-14.6 % High RDW CV 23.0 LAB L100.1820 35.1-43.9 fl High RDW SD 67.6 LAB L100.1900 150-450 K/mm3 Normal PLT 280 LAB L100.2000 6.2-12.0 fl Normal MPV 9.0 LAB L100.2100 47-70 % Normal NEUT% 63.5 LAB L100.2200 19-41 % Normal LY% 22.9 LAB L100.2300 0-10 % High MONO% 11.0 LAB L100.2400 0-5 % Normal EO% 2.2 LAB L100.2500 0-1 % Normal BASO% 0.4 LAB L100.2550 0.0-0.9 % Normal IM GRAN % 0.000 Result Comment: IG% - Immature Granulocytes (promyelocytes, myelocytes and metamyelocytes) > 1% indicates that a LEFT SHIFT is Present. LAB L100.2620 2.0-7.7 X10 3/uL Normal Absolute Neut 3.1 LAB L100.2720 0.83-4.51 X10 3/ul Normal Absolute Lymph 1.13 LAB L100.5500 ADEQ Normal PLT EST ADEQUATE LAB L100.7000 NORM C AND C NORMAL Normal RED CELL MORPH N CHROM LAB L100.7300 Normal ANISO 1+ Performed By: #### L100.0100, L100.9950, L503.6075, L503.6150, L503.6550 #### [facility] [address] [place], [address] RETIC PANEL Collected: 04/30/2018 Status: F Source: [place] 9:22 AM [facility] REPOSITORY Order Comment: Order Date: 04/02/18 Order Info: [id number] - CBCD Comments: cc copy to Dr. Rausch Order Info: [id number] - RETIC TYPE CODE TESTS RESULT OUT OF RANGE REFERENCE UNITS LAB L101.0000 0.5-1.5 % Normal RETIC 0.90 LAB L101.0060 3.00-15.90 % IM Normal RET FRACTION 6.60 LAB L101.0090 30-35 pg High RET-HE 35.3 Performed By: #### L100.0100, L100.9950, L503.6075, L503.6150, L503.6550 #### [facility] [address] [place], [place], [address] IRON BINDING Collected: 04/30/2018 Status: F Source: [facility] [place],TOTAL 9:22 AM [facility] REPOSITORY Order Comment: Order Date: 04/02/18 Order Info: 2500-7 - TIBC Comments: cc copy to Dr. Rausch Order Info: [id number] - FE Order Info: [id number] - JUANITA Comments: cc copy to Dr. Rausch TYPE CODE TESTS RESULT OUT OF RANGE REFERENCE UNITS LAB L503.6075 250-450 ug/dL Normal TIBC 360 Performed By: #### L100.0100, L100.9950, L503.6075, L503.6150, L503.6550 #### [facility] [address] [place], [place], [address] IRON Collected: 04/30/2018 Status: F Source: [place] 9:22 AM [facility] REPOSITORY Order Comment: Order Date: 04/02/18 Order Info: [id number] - TIBC Comments: cc copy to Dr. Rausch Order Info: [id number] - FE Order Info: [id number] - JUANITA Comments: cc copy to Dr. Rausch TYPE CODE TESTS RESULT OUT OF RANGE REFERENCE UNITS LAB L503.6150 65-175 ug/dL Low IRON 61 Performed By: #### L100.0100, L100.9950, L503.6075, L503.6150, L503.6550 #### [facility] [address] [place], [address] FERRITIN Collected: 04/30/2018 Status: F Source: [place] 9:22 AM [facility] REPOSITORY Order Comment: Order Date: 04/02/18 Order Info: [id number] - TIBC Comments: cc copy to Dr. Rasuch Order Info: [id number] - FE Order Info: [id number] - JUANITA Comments: cc copy to Dr. Rausch TYPE CODE TESTS RESULT OUT OF REFERENCE UNITS RANGE LAB L503.6550 26-388 ng/mL Low FERRITIN 22 Performed By: #### L100.0100, L100.9950, L503.6075, L503.6150, L503.6550 #### [facility] [address] [place], [address] RETIC PANEL Collected: 03/28/2018 Status: F Source: [place] 8:12 AM [facility] REPOSITORY TYPE CODE TESTS RESULT OUT OF RANGE REFERENCE UNITS LAB L101.0000 0.5-1.5 % Normal RETIC 0.78 LAB L101.0060 3.00-15.90 % IM Normal RET FRACTION 13.60 LAB L101.0090 30-35 pg Low RET-HE 25.1 LAB L101.0110 1.0-7.9 % Normal IPF 1.2 Result Comment: Low PLT + Low IPF suggest a bone marrow production disorder Low PLT + high IPF suggests peripheral destruction (e.g.ITP, TTP, HIT, DIC, autoimmune) or bone marrow recovery Trending of serial IPF measurements is recommended when evaluating for bone marrow respones Value above normal range indicates an increase in RBC cellular response from bone marrow. Performed By: #### L100.9950 #### [facility] [address] [place], [address] IRON BINDING Collected: 03/28/2018 Status: F Source: [place],TOTAL 8:12 AM [facility] REPOSITORY TYPE CODE TESTS RESULT OUT OF RANGE REFERENCE UNITS LAB L503.6075 250-450 ug/dL Normal TIBC 387 Performed By: #### L503.6075, L503.6550 #### [facility] [address] [place], [address] FERRITIN Collected: 03/28/2018 Status: F Source: [place] 8:12 AM [facility] REPOSITORY TYPE CODE TESTS RESULT OUT OF REFERENCE UNITS RANGE LAB L503.6550 26-388 ng/mL Low FERRITIN 11 Performed By: #### L503.6075, L503.6550 #### [facility] [address] [place], [address] VITAMIN B12 Collected: 03/28/2018 Status: F Source: [place] 8:12 AM [facility] REPOSITORY TYPE CODE TESTS RESULT OUT OF REFERENCE UNITS RANGE LAB L503.0105 211-911 pg/mL High Vitamin B12 1426 Performed By: #### L503.0105 #### [facility] [address] [place], [place], [address] CBC-COMPLETE BLOOD CNT Collected: 03/21/2018 Status: F Source: [place] NO DIFF 8:12 AM [facility] REPOSITORY Order Comment: Reason for Laboratory Test anemia TYPE CODE TESTS RESULT OUT OF RANGE REFERENCE UNITS LAB L100.1000 4.4-11.0 K/mm3 Normal WBC 4.6 LAB L100.1200 4.6-6.2 M/mm3 Normal RBC 4.63 LAB L100.1300 13.0-16.5 g/dl Low HGB 9.7 LAB L100.1400 40-54 % Low HCT 34.6 LAB L100.1500 80-94 fL Low MCV 74.7 LAB L100.1600 27.0-32.0 pg Low MCH 21.0 LAB L100.1700 32-36 g/gl Low MCHC 28.0 LAB L100.1810 11.6-14.6 % High RDW CV 24.3 LAB L100.1820 35.1-43.9 fl High RDW SD 64.6 LAB L100.1900 150-450 K/mm3 Normal PLT 310 LAB L100.2000 6.2-12.0 fl Normal MPV 8.7 Performed By: #### L100.0500, L100.4500 #### [facility] [address] [place], [address] DIFFERENTIAL COMMENT Collected: 03/21/2018 Status: F Source: [place] 8:12 AM [facility] REPOSITORY Order Comment: Reason for Laboratory Test anemia TYPE CODE TESTS RESULT OUT OF RANGE REFERENCE UNITS LAB L100.4500 Normal SMEAR COMMENT Result Comment: MICROCYTOSIS 1+ HYPOCHROMIA 1+ ANISOCYTOSIS 1+ Performed By: #### L100.0500, L100.4500 #### [facility] [address] [place], [address] PULMONARY VISIT REPORT Observed: 03/19/2018 Status: F Source: [place] 10:20 AM [facility] REPOSITORY [facility] [address] [place] [address] OFFICE VISIT Date of Service: 03/19/18 MR#: [id number] Acct: [id number] Name: CINDY COSTA Rep #: [id number] : 1940 Provider: Kash Calle D.O. Age/Sex: 77/M Location: [facility] [place].PMW Status: Signed Assessment AND Plan 1. FREDI (obstructive sleep apnea) G47.33 CPAP 11 cmH2O Plan The patient has been compliant with use of nocturnal CPAP and is benefiting clinically from its use. This will be continued without change. 2. Allergic rhinitis, unspecified seasonality, unspecified trigger J30.9 Plan The patient has been advised to continue to utilize Singulair and Flonase as prescribed. Symptoms are currently under control. Plan Detail Follow Up 1 Year (DMB) HPI HPI Comments Details: The patient is a 77-year-old male who presents to the clinic today for a routine scheduled follow-up office visit. If you recall, the patient was initially referred to me in May 2017 for evaluation of recurrent bronchitis. He is currently followed by Dr. Nava. The patient had reported that he had bronchitis 4 times over the last 2 years. He also reported symptoms of allergic rhinitis, which primarily occur in the spring and fall months. He has no known prior history of asthma. The patient is a lifelong non-smoker. Pulmonary function testing was completed in June 2017 revealed the presence of an isolated mild restrictive ventilatory defect with a symmetric reduction in diffusing capacity. A noncontrasted chest CT was obtained in July 2017 revealed the following: IMPRESSION: Probable mild chronic underlying interstitial lung disease. Suspect component of superimposed pneumonitis. Reactive lymphoid hyperplasia in the mediastinum suspected. A polysomnogram on December 06, 2017 that showed an overall AHI of 18.7 events per hour and a minimum oxygen saturation during sleep of 83%, which indicates moderate to severe obstructive sleep apnea. On January 02, 2018 the patient had a PAP titration study completed which recommended a pressure of 11 cmH2o CPAP. The patient started on CPAP therapy at the recommended 11 cm of water on January 10, 2018. The patient's nocturnal compliance report was personally reviewed at today's office visit. The patient has demonstrated an overall compliance of 100% over the last 30 days. He is currently utilizing his CPAP on average 7.5 hours nightly. He has a residual AHI of 1.9 with no significant air leaks noted. Today, the patient does report interval improvement in his sleep quality since being started on CPAP. He reports that he feels restored and refreshed upon awakening in the morning. He is experiencing less daytime hypersomnolence. He does report that he recently underwent an upper and lower endoscopy due to the presence of anemia. His primary care provider is planning to start him on iron replacement therapy. No source of GI blood loss was identified, per the patient. Regardless, the patient feels well overall and denies the presence of fatigue. His weight has been stable. He denies fevers, chills or night sweats. He denies chest pain, dizziness and lightheadedness. Intake Vital Signs03/19/18 Height 6 ft 4 in 03/19/18 Weight: 243 lb Intake Visit Reasons: 6 M Anesthesia Assistant Required: No Accompanied by: Is patient in pain?: No Allergies azithromycin Allergy (Verified 03/19/18 09:41) unknown ciprofloxacin [From Cipro] Allergy (Verified 03/19/18 09:41) confusion ENVIRONMENTAL ALLERGIES Allergy (Uncoded 03/19/18 09:41) Other Medications aspirin 81 mg tablet,delayed release 81 mg PO QDAY 02/27/18 [History Confirmed 03/19/18] lisinopril 10 mg tablet 20 mg PO QHS tab 02/27/18 [History Confirmed 03/19/18] Montelukast [Singulair] 10 mg PO QHS 02/28/18 [History Confirmed 03/19/18] Rabeprazole Sodium [Aciphex] 20 mg PO DAILY 02/28/18 [History Confirmed 03/19/18] Ferrous Sulfate [Iron] 325 mg PO DAILY #90 tab 03/04/18 [Rx Confirmed 03/19/18] ascorbic acid (vitamin C) 1,000 mg tablet 1 g PO DAILY tab 03/19/18 [History Confirmed 03/19/18] [facility] Medical History Iron deficiency anemia (Acute) FREDI (obstructive sleep apnea) (Chronic) Daytime hypersomnia (Acute) Allergic rhinitis (Acute) Syncope and collapse (Acute) Hypertension (Chronic) Hyperlipidemia (Chronic) Shortness of breath on exertion (Chronic) Cough (Chronic) Restrictive lung disease (Chronic) DDD (degenerative disc disease) (Acute) BPH (benign prostatic hyperplasia) (Chronic) GERD (gastroesophageal reflux disease) (Chronic) Hypogonadism (Chronic) ankle surgery (Chronic) Bronchitis (Inactive) Cough (Inactive) Wheezing (Inactive) Surgical History H/O bilateral inguinal hernia repair (Chronic) H/O sinus surgery (Chronic) History of prostate surgery (Chronic) Family History Brother Heart disease Social History Smoking Status: Never smoker second hand exposure: No alcohol intake: never substance use type: does not use Review of Systems Const CONSTITUTIONAL: Positive seasonal allergies; negative anorexia, body ache, chills, daytime sleepiness, fever(s), night sweats, oral thrush, stops breathing during sleep, weight loss, sleeping in chair, fatigue, weight loss, weight gain, frequent colds, other, headache(s) or orthopnea EETM Ear Nose Throat Mouth: Positive hearing normal; negative hard of hearing, hoarseness, dry mouth in morning, change in vision, itchy eyes, eye pain, swallowing Difficulty, ear pain, nose bleed, headache(s), mouth pain, nasal congestion, nasal discharge, post nasal drip, sinus pain, sinus pressure, sore throat or other Cardio Cardiovascular: Positive murmur; negative chest pain, chest pain at rest, chest pain with activity, irregular heart rhythm, edema, shortness of breath when lying down, palpitations or other Resp Respiratory: Positive as per HPI and cough cough: Positive productive color: Positive clear; negative shortness of breath, pain with cough, wheezing, chest congestion, chest tightness, pain on inspiration, inhalers, increase use of rescue inhalers, snoring, apnea or other Gastro Gastrointestional: Negative bloody stools, change in appetite, difficulty swallowing, reflux, hematemesis, melena stool, loose stool, constipation or other Genitourinary: Positive nocturia; negative blood in urine, pain with urination or other Musc Musculoskeletal: Negative body pain, back pain, neck pain or other Skin/Breast Skin/Breast: Negative dry skin, itching, rash, unusual bruising, breast lump or other Neuro Neurological: Negative restless legs, confusion, weakness or other Psych Psychocological: Negative abnormal sleep pattern, anxiety, thoughts of hurting self/others, hopelessness or other Lymph Lymphatic: Negative easy bleeding, easy bruising, swollen lymph nodes or other Exam Const Constitutional: Positive conversant, cooperative, in no acute respiratory distress, well developed, well nourished and good hygiene Head Head: Positive normocephalic and atraumatic; negative cyanosis of lips/distal nose Eyes Eye: Positive clear conjunctiva; negative nystagmus or scleral abnormality Ears Ear: Positive hearing normal and external ears normal; negative hard of hearing Nose Nose: Positive external nose normal; negative epistaxis Mouth Mouth: Positive oral mucosae normal and posterior oropharynx is adequate; negative no lesions or post nasal drip Mallampati Score: I: Mallampati Score Neck Neck: Positive normal visual inspection and trachea midline; negative lymphadenopathy Chest Wall Chest: Positive symmetric chest movement Normal AP diameter. Resp lung sounds: Positive clear to auscultation, good air exchange and normal expiratory time; negative wheezes, rhonchi or rales Cardio Cardiac: Positive regular rate, regular rhythm, S1 normal, S2 normal and murmur; negative rub or gallop GI GI: Positive normal bowel sounds Soft without distention Genitourinary: Positive deferred Musc Musculoskeletal: Positive steady gait Skin Pulmonary Skin Exam: Positive intact; negative lesion, ulcers, dermal atrophy or rash Pulses Pulse: Yes Pedal pulses present: Extremities Extremities: No clubbing, No cyanosis, No edema Neuro Neurologic: Yes conversant, Yes no focal neuro deficits, Yes cooperative Lymph Lymphatic: No lymphadenopathy Psych Appearance: Positive grossly normal Mental Status: Positive mental status grossly normal Mood: Positive congruent mood Affect: Positive normal affect Coding Level of Care Code Off vis,est,level 3 Diagnoses FREDI (obstructive sleep apnea) G47.33 Allergic rhinitis, unspecified seasonality, unspecified trigger J30.9 Allergic rhinitis trigger: unspecified Allergic rhinitis seasonality: unspecified seasonality 03/19/18 1020 <Electronically signed by Kash Calle DO> Date Kash Calle DO Cosigner Signature: Date (if applicable) CC: Mars Eddy MD SMALL BOWEL SERIES Observed: 03/18/2018 Status: F Source: [place] ONLY 8:41 AM [facility] REPOSITORY [facility] Imaging Services [address] [place] [id number] Small Bowel Series Only MR#: [id number] Acct: [id number] Name: CINDY COSTA Rep #: [id number] : 1940 M 77 From: Zion Longo MD PCP: David Nava MD Status: REG CLI Study: Small Bowel Series Only Date of Exam: 03/18/18 Exam# [id number] Ordering Dr: Gaston Rausch MD STUDY: SMALL BOWEL FOLLOW-THROUGH EXAMINATION. REASON FOR EXAM: Male, 77 years old. Decreased hemoglobin. Normal recent colonoscopy. FLUOROSCOPY TIME (if supplied): (0:17) minutes/seconds TECHNIQUE: The patient ingested barium. A small bowel follow-through examination was then obtained. COMPARISON: None. FINDINGS: On the elevator erector film, moderate amount of fecal material is seen in the colon. There is a moderate-sized hiatal hernia. The small bowel transit is normal. No intrinsic or extrinsic small bowel disease. The terminal ileum is unremarkable. RAD/Small Bowel Series Only IMPRESSION: Moderate sized hiatal hernia. Unremarkable small bowel examination. Electronically Signed: Zion Longo MD at 13:28 EDT Tel [phone], Service support , CC: David Nava MD; Gaston Rausch MD Tube Pusher: Signed OPERATIVE REPORT Observed: 03/04/2018 Status: F Source: [place] 1:01 PM [facility] REPOSITORY [facility] Medical Records Department [address] [place] [address] Operative Report 03/04/18 1252 MR#: [id number] Acct: [id number] Name: CINDY COSTA Rep #: [id number] : 1940 77 From: Gaston Rausch MD PCP: Surjit JORDAN,Mars Cho Status: [facility] Y Location: [place] [address] ADDENDUM by Gaston Rausch MD on 03/04/18 at 1301 Code Visit His last colonoscopy was in 2008. Next screening colonoscopy in 10 years however at that point the patient would be 87 years old and would not likely require a screening examination. Gaston Rausch M.D., F.A.C.S. 03/04/18 1301 <Electronically signed by Gaston Rausch MD> Date Gaston Rausch MD cc: Gaston Rausch MD; Mars Eddy MD * Signed Problem List (1) Iron deficiency anemia Status: Acute Qualifiers: Iron deficiency anemia type: unspecified iron deficiency Report of Operation Date of Procedure: 03/04/18 Pre-Operative Diagnosis: Iron deficiency anemia Post-Operative Diagnosis: Small hiatal hernia, minimal antral and duodenal erythema. No evidence for active upper gastrointestinal bleeding. Severe melanosis coli, extensive descending and sigmoid diverticulosis, no evidence for active colonic bleeding Surgery/Procedure Performed:: Esophagogastroduodenoscopy with biopsies with cold forceps. Colonoscopy Description of Surgical Findings:: Amount informed consent was obtained. 77-year-old gentleman was taken to the endoscopy suite. He had his oropharynx anesthetized with Topex. He was placed in left lateral decubitus position. Throughout the procedure in aliquots she received total 150 mg of Demerol and 5 mg Versed is intravenous sedation. Videogastroscope was inserted into the esophageal inlet. The proximal mid distal esophagus did not appear to be remarkable. The EG junction was at 40 cm. Small hiatal hernia noted. No acute findings of reflux. The scope was advanced in the stomach very minimal amount of antral erythema noted. The scope was advanced through the pylorus the first and second portion of the duodenum were inspected no gross abnormalities. Minimal erythema of the duodenal bulb. Cold forcep biopsy was obtained of the duodenal bulb and of the antrum. The scope was withdrawn back into the stomach retroflexed the EG junction cardia inspected. The hiatal hernia noted. The cardia nicely noted. No evidence for active GI bleeding. The scope was placed back in in antegrade viewing position and greater and lesser curvatures were again inspected without abnormality. Excess fluid and air was aspirated free. The scope was carefully withdrawn through the esophagus without additional abnormality. Digital rectal exam performed. Moderate internal/external hemorrhoids no blood in the examining glove. Prostate was difficult to palpate but no gross masses noted. Flexible colonoscope was in the rectum and advanced through a very tortuous sigmoid colon elongated colon. Scope was advanced through the transverse colon with the assistance of transabdominal pressure is advanced to the ascending colon. He did require effort to access the cecum. Some transabdominal pressure was required. I felt that I did achieve the cecum. The entire endoscopy was difficult due to the degree of melanosis coli which absorb to light. There was also only a fair bowel prep as he was still liquidy stool located throughout the colon which had to be irrigated and aspirated. I withdrew the scope from the cecum ascending colon transverse colon descending colon. Random colonic biopsies were obtained. No active bleeding. There was severe diverticulosis of the descending and sigmoid colon. Scope was retroflexed within the rectum. Some moderate hemorrhoidal changes noted but no active bleeding. Excess fluid and air was aspirated free the procedure was completed with the patient tolerating it well. Impression Hiatal hernia, minimal erythema of the antrum and duodenal bulb. Cold forcep biopsies pending. No evidence for upper gastrointestinal hemorrhage. Severe melanosis coli. Severe diverticulosis of the descending and sigmoid colon. No evidence for acute colonic bleeding. She had reported in the office had a stool for Hemoccult had been negative. I will copy Dr. Eddy and at this point it would seem reasonable for conservative follow-up. If the patient demonstrates ongoing suggestion of possible GI bleeding then I would consider a small bowel follow-through. Medications were given at 07/16/2008. Scope was inserted at 1212. The upper scope was completed at 1216. The colonoscopy started a 1-2 oh. The cecum was reached at 1235. The procedure was completed at 1246. Cc: Dr. Surjit Rausch M.D., F.A.C.S. Type of Anesthesia:: IV Sedation 03/04/18 1259 <Electronically signed by Gaston Rausch MD> Date Gaston Rausch MD CC: Gaston Rausch MD; Mars Eddy MD Signed COLON BIOPSY (CHOOSE Observed: 03/04/2018 Status: F Source: [place] SITE) 12:00 AM [facility] REPOSITORY Patient: CINDY COSTA : 1940 (77/M) Acct Num: [id number] Phys: Miracle JORDAN,Gaston Unit Num: [id number] Loc: EN Specimen: [id number] Received: 03/04/18 - 1433 Spec Type: COLON BX TISSUES TISSUES: A. Duodenum, NOS B. Gastric mucous membrane C. Esophageal mucous membrane D. COLON BIOPSY COMMENT B. The results of immunohistochemistry for Helicobacter pylori will be reported separately ([id number]). Alcian blue/PAS stain with matched control is used in the evaluation of the specimen. GROSS DESCRIPTION A - Received in fixative is one container labeled with the patient's name and designated biopsy duodenum. The specimen consists of one irregular fragment of light lee soft tissue that measures 0.5 x 0.2 x 0.1 cm. The specimen is totally submitted in one cassette. B - Received in fixative is one container labeled with the patient's name and designated biopsy gastric antrum. The specimen consists of two irregular fragments of light lee soft tissue that in aggregate measure 0.4 x 0.3 x 0.1 cm. The specimen is totally submitted in one cassette. C - Received in fixative is one container labeled with the patient's name and designated distal esophagus biopsy. The specimen consists of two irregular fragments of light lee soft tissue that in aggregate measure 0.3 x 0.2 x 0.1 cm. The specimen is totally submitted in one cassette. D - Received in fixative is one container labeled with the patient's name and designated random colon biopsy. The specimen consists of multiple irregular fragments of brownish soft tissue that in aggregate measure 1 x 0.3 x 0.1 cm. The specimen is totally submitted in one cassette. / KENNEY:carlos 03/04/18 TC:5 CPT: 86221 x4, 30364 HEADER OPERATION: Colonoscopy, EGD (MOD) PRE-OP DIAGNOSIS: Iron deficiency anemia TISSUE SUBMITTED: A Duodenal biopsy, B Antral biopsy, C Distal esophagus biopsy, D Random colonic biopsy MICROSCOPIC DESCRIPTION Slides are reviewed. B. The specimen shows fragments of gastric mucosa with chronic inflammatory cell infiltrates in the lamina propria consisting of lymphocytes and plasma cells, consistent with mild chronic gastritis. Focal intestinal metaplasia is also noted. MICROSCOPIC DIAGNOSIS A. Duodenal biopsy: A fragment of duodenal mucosa with mild nonspecific chronic inflammation. B. Antral biopsy: Mild gastritis. Focal intestinal metaplasia (goblet cell metaplasia). See comment. C. Distal esophagus, biopsy: Fragments of squamous epithelium with minimal chronic inflammation. D. Colon, random biopsy: Fragments of colonic mucosa with pigment laden macrophages consistent with melanosis coli. SJ:carlos 03/05/18 Signed Emeka Scott 03/05/18 <signature on file> Performed By: #### PCOLBX #### [facility] [address] [place], [address] IMMUNOHISTOCHEMISTRY Observed: 03/04/2018 Status: F Source: [place]PA 12:00 AM [facility] REPOSITORY Patient: CINDY COSTA : 1940 (77/M) Acct Num: [id number] Phys: Miracle JORDAN,Gaston Unit Num: [id number] Loc: EN Specimen: [id number] Received: 03/05/18 - 1315 Spec Type: IMMUNO TISSUES TISSUES: B. Stomach, NOS SPECIMEN INFORMATION: Tissue Source: B Antral biopsy Clinical Info: Iron deficiency anemia Specimen Number: [id number] CPT code: 83235 METHODOLOGY: Deparaffinized sections of prefer/formalin-fixed tissue or PAP/DQ stained slides are incubated with monoclonal/polyclonal antibodies/oligonucleotide probes. Localization is made via biotin free immunoperoxidase method. Appropriate controls are performed and reacted as expected. Results on target cell population are indicated in the following table: RESULTS: ANTIBODY / CLONE RESULT Block B H Pylori (polyclonal) negative These tests were developed and their performance characteristics determined by [facility]. They may not have been cleared or approved by the U.S. Food and Drug Administration. The FDA has determined that such clearance or approval is not necessary. INTERPRETATION: B. Antral biopsy: Negative for Helicobacter pylori organisms. SJ:carlos 03/06/18 PHYSICIAN AND INSTITUTION [place] [address] Signed Emeka Scott 03/06/18 <signature on file> Performed By: #### PIMM #### [facility] [address] [place] [address], [address] SURGERY VISIT REPORT Observed: 02/27/2018 Status: F Source: [place] 6:14 PM [facility] REPOSITORY [facility] [address] [place] [address] [address] [place] [id number] OFFICE VISIT Date of Service: 02/27/18 MR#: [id number] Acct: [id number] Name: CINDY COSTA Rep #: [id number] : 1940 Provider: Gaston Rausch MD Age/Sex: 77/M Location: [facility] Status: Signed Intake Vital Signs02/27/18 Height 6 ft 4 in 02/27/18 Weight: 240 lb 02/27/18 Body Mass Index (BMI) 29.2 Intake Visit Reasons: Progressive Anemia Chief Complaint: Daytime somnolence and cough Anesthesia Assistant Required: No Is patient in pain?: No Allergies azithromycin Allergy (Verified 02/27/18 10:09) unknown ciprofloxacin [From Cipro] Allergy (Verified 02/27/18 10:09) confusion Medications aspirin 81 mg tablet,delayed release 81 mg PO QDAY 02/27/18 [History Confirmed 02/27/18] lisinopril 10 mg tablet 20 mg PO QDAY tab 02/27/18 [History Confirmed 02/27/18] PFSH Medical History Iron deficiency anemia (Acute) FREDI (obstructive sleep apnea) (Chronic) Daytime hypersomnia (Acute) Allergic rhinitis (Acute) Syncope and collapse (Acute) Hypertension (Chronic) Hyperlipidemia (Chronic) Shortness of breath on exertion (Chronic) Cough (Chronic) Restrictive lung disease (Chronic) DDD (degenerative disc disease) (Acute) BPH (benign prostatic hyperplasia) (Chronic) GERD (gastroesophageal reflux disease) (Chronic) Hypogonadism (Chronic) ankle surgery (Chronic) Bronchitis (Inactive) Cough (Inactive) Wheezing (Inactive) Surgical History H/O bilateral inguinal hernia repair (Chronic) H/O sinus surgery (Chronic) History of prostate surgery (Chronic) Family History Brother Heart disease Social History Smoking Status: Never smoker second hand exposure: No alcohol intake: never substance use type: does not use HPI HPI HPI: CINDY COSTA, is a 77 M who presents to the office today for surgical consultation regarding progressive anemia. The patient is kindly referred by Dr. Eddy and a written copy of my surgical consult recommendations will be returned to him. July 2017 the patient had an episode of syncope. On August 06, 2017 through the [facility] was white cell count was 5.5 hemoglobin 11.2 hematocrit 35.3 platelet count 339,000 with 72% neutrophils. Previously on July 20, 2017 the hemoglobin was 11.6 and hematocrit 36.8. More recently on February 18, 2018 the white blood cell count is 7 with a hemoglobin of 8.3 and hematocrit 28.9 platelet count 432,000. The patient states that he routinely takes AcipHex that he has stopped it but only for the past 2 weeks. His most recent colonoscopy was July 30, 2008. I perform that for him. There were no focal findings other than diverticulosis. The patient states that he has never had an upper endoscopy. As of February 9018 TIBC was normal at 439. Iron was low at 21. Iron saturation was low at 4.8. Ferritin was low at 5. The patient has been placed on iron supplementation. The patient's primary complaint has been fatigue. Recently he has been evaluated by pulmonology and initiated on a CPAP mask which has significantly assisted and improved his condition. He still however is not able to achieve Armen number of tasks which he could before. He denies bright red blood per rectum or melena. He denies personal or family history of colon cancer. He reminds me have assisted him in the past not only with his previous colonoscopy with but with bilateral inguinal hernias ROS General General: Yes fatigue; no weight change, appetite, colon cancer, breast cancer or weakness HEENT HEENT: No difficulty swallowing, eye injury, eye surgery, swollen glands or hoarseness Endo Endocrine: No thyroid disease, diabetes mellitus, thyroid cancer, Hair loss, heat intolerance or cold intolerance Skin Skin: No rash or changing moles Breast Breast: No left breast lump, right breast lump, nipple discharge, breast pain, abnormal mammogram, abnormal US or breast enlargement Musc Musculoskeletal: No back problems, arthritis, rheumatoid arthritis, gout or joint pain Cardio Cardiovascular: Yes high blood pressure; no murmur, pacemaker, heart disease, atrial fibrillation, heart attack, heart stent, palpitations, shortness of breat with exertion or chest pain Resp Respiratory: Yes shortness of breath, Yes sleep apnea, No cough, No COPD, No asthma, No emphysema, No wheezing Gastro Gastrointestinal: Yes acid reflux, No abdominal pain, No nausea or vomiting, No diarrhea, No constipation, No blood in stool, No hemorrhoids, No ulcers, No gallbladder problem, No black,tarry stools Hermilo Hematologic: Yes blood thinners, Yes bleeding, Yes anemia, No blood disorders, No blood clots Neuro Neurologic: No system reviewed and no additional complaints, except as docu, No as per HPI, No abnormal walking, No abnormal hearing, No abnormal movements, No abnormal speech, No behavioral changes, No burning sensations, No confusion, No seizure-like activity, No unsteadiness, No dizziness, No localized weakness, No frequent falls, No headache(s), No lack of coordination, No loss of vision, No memory loss, No numbness, No other visual disturbances, No radiating pain, No restless legs, No sensory deficit, No fainting, No tingling, No tremor(s), No weakness, No other Exam Const General: cooperative, other (Appears pale.), well developed Nutritional Appearance: obese [facility] Head: normal to inspection Mouth: other (Lips appear pale) Eyes General: appearance normal, both eyes and all related structures Neck Neck: normal visual inspection Chest Breast Palpation: No nipple discharge Resp Effort AND Inspection: normal respiratory effort Auscultation: clear to auscultation bilaterally Cardio Rate: regular rate Rhythm: regular rhythm Heart Sounds: no murmurs GI Palpation: soft, no hepatosplenomegaly Auscultation: normal bowel sounds Musc Cervical Spine: normal cervical lordosis Skin General: no rashes or lesions noted Neuro Cranial Nerves: CN's II-XI intact bilaterally Extrem Other: Lower extremity support hose in place Psych Affect: normal affect Assessment AND Plan Problems 1. Iron deficiency anemia, unspecified iron deficiency anemia type D50.9 Plan Patient has a reasonably significant iron deficiency anemia. He is not complaining of any symptoms that would identify upper or lower gastrointestinal tract. He is only been off his AcipHex for 2 weeks and I have instructed him to resume that while we are trying to determine a potential site of loss. In great detail I have discussed with him the technique of esophagogastroduodenoscopy with possible biopsy and colonoscopy with possible biopsy or polypectomy is indicated. He is aware of the technique, the benefit, risks, alternatives. He has had an option ask and have questions answered. He is accompanied by his today who has also been able to inquire. His only anticoagulant would be a low-dose aspirin at 81 mg daily. It is of additional note that a report was had a recent Hemoccult of stool was negative. I recommend proceeding with endoscopy. We will try to schedule and expedite his management. I anticipate endoscopy next week. I very much appreciate the kind opportunity of assisting physical care. Cc: Dr. Surjit Rausch M.D., F.A.C.S. Medications Discontinued: fluticasone 50 mcg/actuation (Flonase Allergy Relief) adminis2 sprays Intranasal QDAY ter into each nostril Discontinued Reason: Pt no longer taki ng Coding Level of Care Code Exp prob focused,strt fwd Diagnoses Iron deficiency anemia, unspecified iron deficiency anemia type D50.9 Iron deficiency anemia type: unspecified iron deficiency 02/27/181813 <Electronically signed by Gaston Rausch MD> Date Gaston Rausch MD Cosigner Signature: Date (if applicable) CC: Mars Eddy MD CBC-COMPLETE BLOOD CNT Collected: 02/20/2018 Status: F Source: [place] NO DIFF 10:22 AM [facility] REPOSITORY TYPE CODE TESTS RESULT OUT OF RANGE REFERENCE UNITS LAB L100.1000 4.4-11.0 K/mm3 Normal WBC 5.5 LAB L100.1200 4.6-6.2 M/mm3 Low RBC 4.27 LAB L100.1300 13.0-16.5 g/dl Low HGB 8.3 LAB L100.1400 40-54 % Low HCT 29.6 LAB L100.1500 80-94 fL Low MCV 69.3 LAB L100.1600 27.0-32.0 pg Low MCH 19.4 LAB L100.1700 32-36 g/gl Low MCHC 28.0 LAB L100.1810 11.6-14.6 % High RDW CV 18.9 LAB L100.1820 35.1-43.9 fl High RDW SD 47.7 LAB L100.1900 150-450 K/mm3 Normal PLT 375 LAB L100.2000 6.2-12.0 fl Normal MPV 8.4 Performed By: #### L100.0500, L100.9950, L100.4500 #### [facility] [address] [place], [address] RETIC PANEL Collected: 02/20/2018 Status: F Source: [place] 10:22 AM [facility] REPOSITORY TYPE CODE TESTS RESULT OUT OF RANGE REFERENCE UNITS LAB L101.0000 0.5-1.5 % Normal RETIC 1.07 LAB L101.0060 3.00-15.90 % IM Normal RET FRACTION 8.40 LAB L101.0090 30-35 pg Low RET-HE 16.6 LAB L101.0110 1.0-7.9 % Normal IPF 1.2 Result Comment: Low PLT + Low IPF suggest a bone marrow production disorder Low PLT + high IPF suggests peripheral destruction (e.g.ITP, TTP, HIT, DIC, autoimmune) or bone marrow recovery Trending of serial IPF measurements is recommended when evaluating for bone marrow respones Value above normal range indicates an increase in RBC cellular response from bone marrow. Performed By: #### L100.0500, L100.9950, L100.4500 #### [facility] [address] [place], [address] DIFFERENTIAL COMMENT Collected: 02/20/2018 Status: F Source: [place] 10:22 AM [facility] REPOSITORY TYPE CODE TESTS RESULT OUT OF RANGE REFERENCE UNITS LAB L100.4500 Normal SMEAR COMMENT COMMENT Result Comment: SLIDE SCANNED - 1+ [employer] CELLS, RARE RBC FRAGMENTS. Performed By: #### L100.0500, L100.9950, L100.4500 #### [facility] [address] [place], [address] IRON+IRON BINDING Collected: 02/20/2018 Status: F Source: [facility] 10:22 AM [facility] REPOSITORY TYPE CODE TESTS RESULT OUT OF RANGE REFERENCE UNITS LAB L503.6075 250-450 ug/dL TIBC Normal 439 LAB L503.6150 65-175 ug/dL Low IRON 21 LAB L503.6250 15.0-55.0 % Low IRON SATURATION 4.8 Performed By: #### L503.6030, L503.6550 #### [facility] [address] [place], [address] FERRITIN Collected: 02/20/2018 Status: F Source: [place] 10:22 AM [facility] REPOSITORY TYPE CODE TESTS RESULT OUT OF REFERENCE UNITS RANGE LAB L503.6550 26-388 ng/mL Low FERRITIN 5 Performed By: #### L503.6030, L503.6550 #### [facility] [address] [place], [address] VITAMIN B12 Collected: 02/20/2018 Status: F Source: [place] 10:22 AM [facility] REPOSITORY TYPE CODE TESTS RESULT OUT OF REFERENCE UNITS RANGE LAB L503.0105 211-911 pg/mL High Vitamin B12 > 2000 Performed By: #### L503.0105 #### [facility] [address], [address] CBC W/DIFF, AUTOMATED Collected: 02/18/2018 Status: F Source: [place] 3:28 PM [facility] REPOSITORY TYPE CODE TESTS RESULT OUT OF RANGE REFERENCE UNITS LAB L100.1000 4.4-11.0 K/mm3 Normal WBC 7.0 LAB L100.1200 4.6-6.2 M/mm3 Low RBC 4.17 LAB L100.1300 13.0-16.5 g/dl Low HGB 8.3 LAB L100.1400 40-54 % Low HCT 28.9 LAB L100.1500 80-94 fL Low MCV 69.3 LAB L100.1600 27.0-32.0 pg Low MCH 19.9 LAB L100.1700 32-36 g/gl Low MCHC 28.7 LAB L100.1810 11.6-14.6 % High RDW CV 19.2 LAB L100.1820 35.1-43.9 fl High RDW SD 47.6 LAB L100.1900 150-450 K/mm3 Normal PLT 432 LAB L100.2000 6.2-12.0 fl Normal MPV 9.0 LAB L100.2100 47-70 % High NEUT% 70.8 LAB L100.2200 19-41 % Low LY% 16.5 LAB L100.2300 0-10 % High MONO% 10.4 LAB L100.2400 0-5 % Normal EO% 2.0 LAB L100.2500 0-1 % Normal BASO% 0.3 LAB L100.2550 0.0-0.9 % Normal IM GRAN % 0.000 Result Comment: IG% - Immature Granulocytes (promyelocytes, myelocytes and metamyelocytes) > 1% indicates that a LEFT SHIFT is Present. LAB L100.2620 2.0-7.7 X10 3/uL Absolute Neut Normal 4.9 LAB L100.2720 0.83-4.51 X10 3/ul Absolute Lymph Normal 1.15 LAB L100.5500 ADEQ PLT EST Normal SLT INC LAB L100.7300 ANISO Normal 1+ LAB L100.7600 HYPOCHROMASIA Normal 2+ LAB L100.7700 MICROCYTES Normal 1+ Performed By: #### L100.0100 #### [facility] [address] [place], [address] COMPREHENSIVE METABOLIC Collected: 02/18/2018 Status: F Source: [place] 3:28 PM [facility] REPOSITORY TYPE CODE TESTS RESULT OUT OF RANGE REFERENCE UNITS LAB L501.0100 74-106 mg/dL Normal GLU 93 Result Comment: Please note revised GLUCOSE reference range effective 2017. LAB L501.1000 7-18 mg/dL Normal BUN 18 LAB L501.1100 0.70-1.30 mg/dL Normal CREAT,SERUM 1.21 Result Comment: The validity of the calculated GFR AND GFRAA in patients over 70 years has not been determined. Clinical correlation is essential. LAB L501.1110 >60 mL/min Normal EST GFR 62 Result Comment: Non- GFR Calc LAB L501.1115 >60 mL/min Normal EST GFR - AA 74 Result Comment: GFR Calc LAB L501.1300 10-20 RATIO Normal BUN/CRE 14.9 LAB L501.1500 6.4-8.2 g/dL T Normal PROT 7.7 LAB L501.1800 3.2-5.0 g/dL Normal ALB 3.7 LAB L501.1950 2.2-4.2 g/dL Normal GLOB 4.0 LAB L501.2000 0.9-2.4 RATIO Normal A/G 0.9 LAB L501.2200 8.5-10.1 mg/dL Low CA 8.3 LAB L501.4100 15-37 U/L Normal AST 16 LAB L501.4305 45-117 U/L Normal ALK P 51 LAB L501.4405 16-61 U/L Normal ALT 23 LAB L501.4600 0.20-1.00 mg/dL T Normal BILI 0.30 LAB L501.5300 136-145 mmol/L NA Normal 140 LAB L501.5600 3.5-5.1 mmol/L K Normal 4.2 LAB L501.5900 98-107 mmol/L High CL 108 LAB L501.6100 21.0-32.0 mmol/L Normal CO2 26.0 LAB L501.6200 5-15 Normal GAP 6 Performed By: #### L500.4050, L501.9520 #### [facility] [address] [place], [address] THYROID STIM HORMONE Collected: 02/18/2018 Status: F Source: [place] (TSH) 3:28 PM [facility] REPOSITORY TYPE CODE TESTS RESULT OUT OF RANGE REFERENCE UNITS LAB L501.9520 0.358-3.74 uIU/mL Normal TSH 1.23 Performed By: #### L500.4050, L501.9520 #### [facility] [address] [place], [address] VITAMIN D,25 HYDROXY Collected: 02/18/2018 Status: F Source: [place] 3:28 PM [facility] REPOSITORY TYPE CODE TESTS RESULT OUT OF RANGE REFERENCE UNITS LAB L506.1000 29.95-100.01 ng/mL Normal Vitamin D 30.9 25-OH Result Comment: Vitamin D 25(OH) Status Range Deficiency <20 ng/mL (50nmol/L) Insuffciency 20 - 30 ng/mL (50 - 75 nmol/L) Sufficiency 30 - 100 ng/mL (75 - 250 nmol/L) Toxicity >100 ng/mL (>250 nmol/L) Performed By: #### L506.1000, L509.3000 #### [facility] [address] [place], [address] TESTOSTERONE, SERUM TOTAL Collected: 02/18/2018 Status: F Source: [place] 3:28 PM [facility] REPOSITORY TYPE CODE TESTS RESULT OUT OF REFERENCE UNITS RANGE LAB L509.3000 ng/dL Testosterone Normal 252.87 Result Comment: NORMAL REFERENCE RANGES MALE AGE <50 123.06 - 813.86 ng/dL MALE AGE >50 89.98 - 780.10 ng/dL FEMALE PREMENOPAUSE AGE 21 - 60 9.01 - 47.94 ng/dL FEMALE POSTMENOPAUSE AGE 45 - 89 <7.00 - 45.62 ng/dL REFERENCE RANGE AND METHODOLOGY CHANGED 07/03/2017 Performed By: #### L506.1000, L509.3000 #### [facility] [address] [place], [address] PULMONARY VISIT REPORT Observed: 01/29/2018 Status: F Source: [place] 3:58 PM [facility] REPOSITORY [facility] [address] [place] [address] OFFICE VISIT Date of Service: 01/29/18 MR#: [id number] Acct: [id number] Name: CINDY COSTA Rep #: [id number] : 1940 Provider: Lissette Flores Age/Sex: 77/M Location: [facility] [place] Status: Signed Assessment AND Plan 1. FREDI (obstructive sleep apnea) G47.33 Status Chronic CPAP 11 cmH2O Plan Moderate to severe as per PSG, improvement with 2 weeks of CPAP therapy as evidence by reduced AHI and subjective improvement in symptoms as noted in PHI. Continue using PAP therapy nightly, and with any sleep. Lengthy discussion about benefits of treating FREDI and equipment education. Follow-up in 3 month to reevaluate therapeutic effects, patient instructed to contact this office sooner if acute issues arise. He is using and benefiting from Pap therapy. 2. Cough R05 Plan Improved. Continue on montelukast daily as prescribed at last visit. If symptoms worsen, or do not respond appropriately to is therapy, would consider additional allergy testing or referral to [facility]. Plan Detail Follow Up 3 Months ([facility]) HPI 2 M FU: Chief Complaint: Daytime somnolence and cough HPI Comments Details: Mr. Costa is a pleasant 77-year-old male who presents the office today for follow-up of daytime hypersomnia, shortness of breath, and cough. Since his last visit he had a polysomnogram on December 06, 2017 that showed an overall AHI of 18.7 events per hour and a minimum oxygen saturation during sleep of 83%, which indicates moderate to severe obstructive sleep apnea. On January 02, 2018 the patient had a PAP titration study completed which recommended a pressure of 11 cmH2o CPAP. The patient started on CPAP therapy at the recommended 11 cm of water on January 10, 2018; compliance report reviewed which shows patient has been 100% compliance since receiving machine, average usage of 6 hours and 40 minutes per night, and AHI 1.9 events per hour. Leaks do not appear to be a problem. The patient reports feeling well rested in the morning, reports one incident of nocturia per night, denies any dry mouth and daytime somnolence, and his reports he does not snore through the mask. The patient appears to be benefiting greatly from CPAP therapy. He states that he feels like a new man. The patient was started on Singulair his last visit for chronic cough congestion. He notes that his cough, postnasal drip, and throat clearing have improved significantly. He does note that he continues to sneeze occasionally, but is very pleased with the improvement in his symptoms. He does have Flonase has not been using it. Mr. Costa denies any acute complaints today and has no questions. Intake Vital Signs01/29/18 Height 6 ft 4 in 01/29/18 Weight: 246 lb Intake Visit Reasons: 2 M FU Chief Complaint: Shortness of breath on exertion Anesthesia Assistant Required: No Accompanied by: Is patient in pain?: Yes Allergies azithromycin Allergy (Verified 01/29/18 09:57) unknown ciprofloxacin [From Cipro] Allergy (Verified 01/29/18 09:57) confusion Medications lisinopril 10 mg tablet 10 mg PO QDAY 07/23/17 [History Confirmed 01/29/18] rabeprazole 20 mg tablet,delayed release 20 mg PO .COMPLEX 07/23/17 [History Confirmed 01/29/18] fluticasone 50 mcg/actuation nasal spray,suspension 2 spray INTRANASAL QDAY #1 device 08/22/17 [Rx Confirmed 01/29/18] montelukast 10 mg tablet 10 mg PO QHS #30 tab 11/27/17 [Rx Confirmed 01/29/18] [facility] Medical History Syncope and collapse (Acute) Hypertension (Chronic) Hyperlipidemia (Chronic) Shortness of breath on exertion (Chronic) Restrictive lung disease (Chronic) DDD (degenerative disc disease) (Acute) BPH (benign prostatic hyperplasia) (Chronic) GERD (gastroesophageal reflux disease) (Chronic) Hypogonadism (Chronic) ankle surgery (Chronic) Bronchitis (Inactive) Cough (Inactive) Wheezing (Inactive) Surgical History H/O bilateral inguinal hernia repair (Chronic) H/O sinus surgery (Chronic) History of prostate surgery (Chronic) Family History Brother Heart disease Social History Smoking Status: Never smoker second hand exposure: No alcohol intake: never substance use type: does not use Review of Systems Const CONSTITUTIONAL: Negative anorexia, body ache, chills, daytime sleepiness, fever(s), night sweats, oral thrush, stops breathing during sleep, weight loss, sleeping in chair, fatigue, weight loss, weight gain, frequent colds, seasonal allergies, other, headache(s) or orthopnea EETM Ear Nose Throat Mouth: Positive hearing normal; negative hard of hearing, hoarseness, dry mouth in morning, change in vision, itchy eyes, eye pain, swallowing Difficulty, ear pain, nose bleed, headache(s), mouth pain, nasal congestion, nasal discharge, post nasal drip, sinus pain, sinus pressure, sore throat or other Cardio Cardiovascular: Negative chest pain, chest pain at rest, chest pain with activity, irregular heart rhythm, edema, shortness of breath when lying down, palpitations, murmur or other Resp Respiratory: Positive as per HPI; negative shortness of breath, pain with cough, wheezing, chest congestion, cough, chest tightness, pain on inspiration, inhalers, increase use of rescue inhalers, snoring, apnea or other Gastro Gastrointestional: Negative bloody stools, change in appetite, difficulty swallowing, reflux, hematemesis, melena stool, loose stool, constipation or other Genitourinary: Negative blood in urine, nocturia, pain with urination or other Musc Musculoskeletal: Positive neck pain; negative body pain, back pain or other Skin/Breast Skin/Breast: Negative dry skin, itching, rash, unusual bruising, breast lump or other Neuro Neurological: Negative restless legs, confusion, weakness or other Psych Psychocological: Negative abnormal sleep pattern, anxiety, thoughts of hurting self/others, hopelessness or other Lymph Lymphatic: Negative easy bleeding, easy bruising, swollen lymph nodes or other Exam Const Constitutional: Positive conversant, cooperative, in no acute respiratory distress, healthy appearing, well developed, well nourished and good hygiene Head Head: Positive normocephalic and atraumatic; negative cyanosis of lips/distal nose Eyes Eye: Positive clear conjunctiva; negative nystagmus or scleral abnormality Ears Ear: Positive hearing normal and external ears normal; negative hard of hearing Nose Nose: Positive external nose normal and no nasal discharge; negative epistaxis Mouth Mouth: Positive oral mucosae normal, no lesions and crowded posterior oropharynx; negative post nasal drip or oral thrush present Mallampati Score: IV: Mallampati Score Neck Neck: Positive normal visual inspection, full ROM and trachea midline; negative lymphadenopathy, JVD or tender Chest Wall Chest: Positive normal inspection of the chest and symmetric chest movement; negative increased A/P diameter Resp lung sounds: Positive clear to auscultation, good air exchange, normal expiratory time and normal respiratory effort; negative diminished, wheezes, rhonchi, rales, dullness to percussion or wheeze present on forced exhalation Cardio Cardiac: Positive regular rate, regular rhythm, S1 normal and S2 normal; negative murmur GI GI: Positive normal to inspection and normal bowel sounds; negative distended Genitourinary: Positive deferred Musc Musculoskeletal: Positive steady gait and ROM normal; negative kyphosis or scoliosis Skin Pulmonary Skin Exam: Positive intact; negative rash Pulses Pulse: Yes radial pulses present Extremities Extremities: No edema, Yes capillary refill normal, No clubbing, No cyanosis Neuro Neurologic: Yes conversant, Yes no focal neuro deficits, Yes cooperative, Yes normal cognition, Yes normal coordination, Yes normal concentration, Yes understands questions Lymph Lymphatic: No lymphadenopathy Psych Appearance: Positive grossly normal, eye contact and well kempt Mental Status: Positive mental status grossly normal Mood: Positive congruent mood Affect: Positive normal affect Coding Level of Care Code Off vis,est,level 3 Diagnoses FREDI (obstructive sleep apnea) G47.33 Cough R05 01/29/18 6712 <Electronically signed by Lissette PRETTY> Date Lissette PRETTY Cosigner Signature: Date (if applicable) CC: Mars Eddy MD PULMONARY VISIT REPORT Observed: 11/28/2017 Status: F Source: [place] 1:58 PM [facility] REPOSITORY [facility] [address] [place] [address] OFFICE VISIT Date of Service: 11/27/17 MR#: [id number] Acct: [id number] Name: CINDY COSTA Rep #: [id number] : 1940 Provider: Lissette Flores Age/Sex: 77/M Location: [facility] [place] Status: Signed Assessment AND Plan 1. SOB (shortness of breath) on exertion R06.02 Status Chronic Plan Deteriorated. Patient has noted mild to moderate pulmonary hypertension. It is quite possible that his pulmonary hypertension has worsened, therefore there is more of a need to try to identify the etiology of his pulmonary hypertension. Quite possibly related to unidentified obstructive sleep apnea. Plan for testing and follow-up in 2 months. 2. Restrictive lung disease J98.4 Status Chronic Plan Mild restriction on PFTs could be related to unidentified obstructive sleep apnea, resulting in pulmonary hypertension and possibly some mild pleural effusion. Plan to further evaluate because of pulmonary hypertension. Close monitoring with a 2 month follow-up. Patient has been encouraged to contact the office if his symptoms worsen in the meantime. 3. Daytime hypersomnia G47.19 Status Acute Plan New. Patient does complain of persistent daytime hypersomnia and has several symptoms consistent with obstructive sleep apnea. Plan for a polysomnogram and a titration study if indicated. Lengthy discussion about the pathophysiology of obstructive sleep apnea and its relationship to pulmonary hypertension. The patient is agreeable to workup. He understands that if identified and therapy is indicated that the initial goal will be that he wears the device at least 4 hours nightly, and ultimately begins to wear the device any time spent sleeping. He has been encouraged to contact the office if he has any difficulty with the testing process, or the acclamation process once treatment is initiated. He conveys understanding. Orders Orders: Plan Detail Other Medications Refilled: Follow Up 2 Months ([facility]) HPI breathing problems: Chief Complaint: Shortness of breath on exertion HPI Comments Details: This patient presents the office today for worsening shortness of breath. He is ambulatory and currently on room air. He has noticed over the past 1-2 weeks that the shortness of breath on exertion has worsened. He was previously able to mow his entire lawn, he is now only able to mow for about 10 minutes before becoming short of breath and requiring a break. He denies any chest pain, chest tightness or palpitations. He does report chest congestion that was completely resolved while taking Singulair. He does admit that recently he stopped taking the Singulair because he has felt so improved he thought he no longer needed it. He denies any lower extremity edema. He has noticed a weight gain, and per our records weight is up 9 pounds this year. He has not noticed a change in his diet. He denies any cough, sputum production, hemoptysis. He is also concerned about worsening daytime fatigue. Reports that he naps frequently, does not feel rested. See stop bang assessment. Also see complete review of systems. STOP-BANG Assessment: 1. Do you snore? No 2. Are you frequently tired during the day? No 3. Have you been observed gasping or choking while asleep? No 4. Do you have high blood pressure? Yes 5. BMI - greater than 35kg/m2? No 6. Age - over 50 years old? Yes 7. Neck Circumference - greater than 37 cm for females or 40 cm for males? No 8. Gender - male? Yes Total STOP-BANG score = 3 which indicates high risk for obstructive sleep apnea (yes to 3 or more questions = high risk of sleep apnea). Intake Vital Signs11/27/17 Height 6 ft 4 in 11/27/17 Weight: 249 lb Intake Visit Reasons: breathing problems Chief Complaint: Syncope Anesthesia Assistant Required: No Accompanied by: Self Is patient in pain?: No Allergies azithromycin Allergy (Verified 11/27/17 10:42) unknown ciprofloxacin [From Cipro] Allergy (Verified 11/27/17 10:42) confusion Medications lisinopril 10 mg tablet 10 mg PO QDAY 07/23/17 [History Confirmed 11/27/17] rabeprazole 20 mg tablet,delayed release 20 mg PO .COMPLEX 07/23/17 [History Confirmed 11/27/17] fluticasone 50 mcg/actuation nasal spray,suspension 2 spray INTRANASAL QDAY #1 device 08/22/17 [Rx Confirmed 11/27/17] montelukast 10 mg tablet 10 mg PO QHS #30 tab 11/27/17 [Rx Confirmed 11/27/17] [facility] Medical History Syncope and collapse (Acute) Hypertension (Chronic) Hyperlipidemia (Chronic) Shortness of breath on exertion (Chronic) Restrictive lung disease (Chronic) DDD (degenerative disc disease) (Acute) BPH (benign prostatic hyperplasia) (Chronic) GERD (gastroesophageal reflux disease) (Chronic) Hypogonadism (Chronic) ankle surgery (Chronic) Bronchitis (Inactive) Cough (Inactive) Wheezing (Inactive) Surgical History H/O bilateral inguinal hernia repair (Chronic) H/O sinus surgery (Chronic) History of prostate surgery (Chronic) Family History Brother Heart disease Social History Smoking Status: Never smoker second hand exposure: No alcohol intake: never substance use type: does not use Review of Systems Const CONSTITUTIONAL: Positive fatigue and seasonal allergies; negative anorexia, body ache, chills, daytime sleepiness, fever(s), night sweats, oral thrush, stops breathing during sleep, weight loss, sleeping in chair, weight loss, weight gain, frequent colds, other, headache(s) or orthopnea EETM Ear Nose Throat Mouth: Positive hearing normal and post nasal drip; negative hard of hearing, hoarseness, dry mouth in morning, change in vision, itchy eyes, eye pain, swallowing Difficulty, ear pain, nose bleed, headache(s), mouth pain, nasal congestion, nasal discharge, sinus pain, sinus pressure, sore throat or other Cardio Cardiovascular: Negative chest pain, chest pain at rest, chest pain with activity, irregular heart rhythm, edema, shortness of breath when lying down, palpitations, murmur or other Resp Respiratory: Positive as per HPI and shortness of breath shortness of breath: Positive with activity and worsening; negative pain with cough, wheezing, chest congestion, cough, chest tightness, pain on inspiration, inhalers, increase use of rescue inhalers, snoring, apnea or other Gastro Gastrointestional: Negative bloody stools, change in appetite, difficulty swallowing, reflux, hematemesis, melena stool, loose stool, constipation or other Genitourinary: Negative blood in urine, nocturia, pain with urination or other Musc Musculoskeletal: Negative body pain, back pain, neck pain or other Skin/Breast Skin/Breast: Negative dry skin, itching, rash, unusual bruising, breast lump or other Neuro Neurological: Positive weakness; negative restless legs, confusion or other Psych Psychocological: Negative abnormal sleep pattern, anxiety, thoughts of hurting self/others, hopelessness or other Lymph Lymphatic: Negative easy bleeding, easy bruising, swollen lymph nodes or other Exam Const Constitutional: Positive conversant, cooperative, in no acute respiratory distress, healthy appearing, well developed, well nourished, good hygiene and obese Head Head: Positive normocephalic and atraumatic; negative cyanosis of lips/distal nose Eyes Eye: Positive clear conjunctiva and nystagmus; negative scleral abnormality Ears Ear: Positive hearing normal and external ears normal; negative hard of hearing Nose Nose: Positive external nose normal and no nasal discharge; negative epistaxis Mouth Mouth: Positive post nasal drip, oral mucosae normal, no lesions, good dentition and crowded posterior oropharynx; negative malodorous breath or oral thrush present Mallampati Score: III: Mallampati Score Neck Neck: Positive normal visual inspection, full ROM, trachea midline, thick neck and male neck greater than 43 cm (17 in); negative lymphadenopathy, JVD or tender Chest Wall Chest: Positive normal inspection of the chest and symmetric chest movement; negative increased A/P diameter Resp lung sounds: Positive clear to auscultation, good air exchange, normal expiratory time and normal respiratory effort; negative diminished, wheezes, rhonchi, rales, dullness to percussion or wheeze present on forced exhalation Cardio Cardiac: Positive regular rate, regular rhythm, S1 normal and S2 normal; negative murmur GI GI: Positive normal to inspection, normal bowel sounds and obese; negative distended Genitourinary: Positive deferred Musc Musculoskeletal: Positive steady gait and ROM normal; negative kyphosis or scoliosis Skin Pulmonary Skin Exam: Positive intact; negative rash, lesion, ulcers, erythema, scaly or dermal atrophy Pulses Pulse: Yes pulses normal x4 extremities Extremities Extremities: Yes capillary refill normal, No clubbing, No cyanosis, No edema, No stasis dermatitis Neuro Neurologic: Yes conversant, Yes cooperative, Yes no focal neuro deficits, Yes understands questions, No tremor, Yes normal cognition, Yes normal coordination, Yes normal concentration Lymph Lymphatic: No lymphadenopathy, No tenderness, No cervical adenopathy, No axillary adenopathy Psych Appearance: Positive grossly normal, eye contact and well kempt Mental Status: Positive mental status grossly normal Mood: Positive congruent mood Affect: Positive normal affect Coding Level of Care Code Off vis,est,level 4 Diagnoses SOB (shortness of breath) on exertion R06.02 Restrictive lung disease J98.4 Daytime hypersomnia G47.19 11/28/17 1358 <Electronically signed by Lissette PRETTY> Date Lissette PRETTY Cosigner Signature: Date (if applicable) CC: Mars Eddy MD PULMONARY VISIT REPORT Observed: 09/23/2017 Status: F Source: [place] 12:28 PM [facility] Pulmonary Medicine [address] [place] [address] OFFICE VISIT Date of Service: 09/23/17 MR#: [id number] Acct: [id number] Name: CINDY COSTA Diana Rep #: [id number] : 1940 Provider: Lissette Flores Age/Sex: 77/M Location: [facility] [place] Status: Signed Assessment AND Plan 1. Allergic rhinitis, unspecified seasonality, unspecified trigger J30.9 Status Acute Plan Continue Flonase, suggest that the patient could drop down to 1 spray each nostril daily as a maintenance dose. Continue Singulair. The patient has been encouraged to contact the office if he develops any new or worsening allergic symptoms. Follow- up with Dr. Calle in 6 months, at which time we can try to identify if there have been any triggers over the changing seasons. 2. SOB (shortness of breath) on exertion R06.02 Status Chronic Plan Possibly related to large hiatal hernia causing restrictive lung disease. Discussed the possibility of the patient being evaluated by surgeon, at this time he does not wish to pursue that. He has been reassured that if he decides he would like to see his surgeon he can call the office for referral, or he can discuss this with his PCP at his next scheduled follow-up. Otherwise, follow-up with Dr. Calle in 6 months. 3. Cough R05 Status Chronic Plan Resolved. Continue Singulair and Flonase. Follow-up in [address] Calle. Contact the office if he needs to be seen prior to that follow-up for any new or worsening symptoms. Plan Detail Follow Up 6 Months ([facility]) HPI HPI Comments Details: This patient presents the office today to follow- up after having additional testing done. He is ambulatory, currently on room air and accompanied by his . He has not been seen in the ED urgent care for any breathing problems since his last office visit. He has not required prescription antibiotic or prednisone for respiratory illnesses since his last office visit. He has maintained compliance with Flonase 2 sprays each nostril daily since his last office visit, admitting that over the past 3 days he did stop taking the medication. He has also been compliant with Singulair daily. He denies any medication side effects. He does report almost a complete resolution of his cough. He denies any wheezing or chest tightness. He denies any sputum production or hemoptysis. He continues to experience shortness of breath on exertion, with activities such as climbing stairs. He denies any shortness of breath during conversation or at rest. Reviewed the results of his Rast test, which were completely negative. He asked about the CAT scan of the chest that he had prior to his visit with Dr. Calle a month ago. Also discussed the results of that CT, which showed that he has a large hiatal hernia. He reports that he was aware that he had a hiatal hernia but has not had it evaluated by a surgeon. Intake Vital Signs09/23/17 Body Mass Index (BMI) 29.3 09/23/17 Blood Pressure 132/78 09/23/17 Height 6 ft 4 in 09/23/17 Weight: 241 lb Intake Visit Reasons: 1 M FU Chief Complaint: Syncope Accompanied by: Self Allergies azithromycin Allergy (Verified 09/23/17 08:39) unknown ciprofloxacin [From Cipro] Allergy (Verified 09/23/17 08:39) confusion Medications lisinopril 10 mg tablet 10 mg PO QDAY 07/23/17 [History Confirmed 09/23/17] rabeprazole 20 mg tablet,delayed release 20 mg PO .COMPLEX 07/23/17 [History Confirmed 09/23/17] fluticasone 50 mcg/actuation nasal spray,suspension 2 spray INTRANASAL QDAY #1 device 08/22/17 [Rx Confirmed 09/23/17] montelukast 10 mg tablet 10 mg PO QHS #30 tab 08/22/17 [Rx Confirmed 09/23/17] [facility] Medical History Syncope and collapse (Acute) Hypertension (Chronic) Hyperlipidemia (Chronic) Shortness of breath on exertion (Chronic) Restrictive lung disease (Chronic) DDD (degenerative disc disease) (Acute) BPH (benign prostatic hyperplasia) (Chronic) GERD (gastroesophageal reflux disease) (Chronic) Hypogonadism (Chronic) ankle surgery (Chronic) Bronchitis (Inactive) Cough (Inactive) Wheezing (Inactive) Surgical History H/O bilateral inguinal hernia repair (Chronic) H/O sinus surgery (Chronic) History of prostate surgery (Chronic) Family History Brother Heart disease Social History Smoking Status: Never smoker second hand exposure: No alcohol intake: never substance use type: does not use Review of Systems Const CONSTITUTIONAL: Positive fatigue; negative anorexia, body ache, chills, daytime sleepiness, fever(s), night sweats, oral thrush, stops breathing during sleep, weight loss, sleeping in chair, weight loss, weight gain, frequent colds, seasonal allergies, other, headache(s) or orthopnea EETM Ear Nose Throat Mouth: Positive hearing normal; negative hard of hearing, hoarseness, dry mouth in morning, change in vision, itchy eyes, eye pain, swallowing Difficulty, ear pain, nose bleed, headache(s), mouth pain, nasal congestion, nasal discharge, post nasal drip, sinus pain, sinus pressure, sore throat or other Cardio Cardiovascular: Negative chest pain, chest pain at rest, chest pain with activity, irregular heart rhythm, edema, shortness of breath when lying down, palpitations, murmur or other Resp Respiratory: Positive as per HPI and shortness of breath shortness of breath: Positive with activity; negative pain with cough, wheezing, chest congestion, cough, chest tightness, pain on inspiration, inhalers, increase use of rescue inhalers, snoring, apnea or other Gastro Gastrointestional: Negative bloody stools, change in appetite, difficulty swallowing, reflux, hematemesis, melena stool, loose stool, constipation or other Genitourinary: Negative blood in urine, nocturia, pain with urination or other Musc Musculoskeletal: Positive neck pain; negative body pain, back pain or other Skin/Breast Skin/Breast: Negative dry skin, itching, rash, unusual bruising, breast lump or other Neuro Neurological: Negative restless legs, confusion, weakness or other Psych Psychocological: Negative abnormal sleep pattern, anxiety, thoughts of hurting self/others, hopelessness or other Lymph Lymphatic: Negative easy bleeding, easy bruising, swollen lymph nodes or other Exam Const Constitutional: Positive conversant, cooperative, in no acute respiratory distress, healthy appearing, well developed, well nourished and good hygiene Head Head: Positive normocephalic and atraumatic; negative cyanosis of lips/distal nose Eyes Eye: Positive clear conjunctiva and nystagmus; negative scleral abnormality Ears Ear: Positive hearing normal and external ears normal; negative hard of hearing Nose Nose: Positive external nose normal and no nasal discharge; negative epistaxis Mouth Mouth: Positive oral mucosae normal, no lesions, good dentition and posterior oropharynx is adequate; negative post nasal drip, malodorous breath or oral thrush present Mallampati Score: I: Mallampati Score Neck Neck: Positive normal visual inspection, full ROM and trachea midline; negative lymphadenopathy, JVD or tender Chest Wall Chest: Positive normal inspection of the chest and symmetric chest movement; negative increased A/P diameter Resp lung sounds: Positive clear to auscultation, good air exchange, normal expiratory time and normal respiratory effort; negative diminished, wheezes, rhonchi, rales, dullness to percussion or wheeze present on forced exhalation Cardio Cardiac: Positive S1 normal and S2 normal; negative murmur or regular rhythm GI GI: Positive normal to inspection and normal bowel sounds; negative distended Genitourinary: Positive deferred Musc Musculoskeletal: Positive steady gait and ROM normal; negative kyphosis or scoliosis Skin Pulmonary Skin Exam: Positive intact; negative rash, lesion, ulcers, erythema, scaly or dermal atrophy Pulses Pulse: Yes pulses normal x4 extremities Extremities Extremities: Yes capillary refill normal, No clubbing, No cyanosis, No edema, No stasis dermatitis Neuro Neurologic: Yes conversant, Yes no focal neuro deficits, Yes cooperative, Yes normal cognition, Yes normal coordination, Yes normal concentration, Yes understands questions, No tremor Lymph Lymphatic: No lymphadenopathy, No tenderness, No cervical adenopathy, No axillary adenopathy Psych Appearance: Positive grossly normal, eye contact and well kempt Mental Status: Positive mental status grossly normal Mood: Positive congruent mood Affect: Positive normal affect Coding Level of Care Code Off vis,est,level 3 Diagnoses Allergic rhinitis, unspecified seasonality, unspecified trigger J30.9 Allergic rhinitis trigger: unspecified Allergic rhinitis seasonality: unspecified seasonality SOB (shortness of breath) on exertion R06.02 Cough R05 09/23/17 1228 <Electronically signed by Lissette PRETTY> Date Lissette PRETTY Cosigner Signature: Date (if applicable) CC: Mars Eddy MD STRESS TEST ECHO W/O Observed: 09/18/2017 Status: F Source: [place] CONTRAST 4:45 PM [facility] REPOSITORY [facility] Cardiovascular Services [address] [place] [address] Stress Test Echo w/o Contrast MR#: [id number] Acct: [id number] Name: CINDY COSTA Rep #: [id number] : 1940 77 From: Baltazar Tony MD Primary Care: Surjit JORDAN,Mars Cho Status: REG CLI Ordering Dr: Baltazar Tony MD Sex: M C Reason For Study: DYSPNEA Stress Results Protocol: Yazan Protocol Maximum Predicted HR: 142 bpm Target HR: 121 bpm% Max imum Predicted HR: 100 % DurationHeart Rate Stage (mm:ss) (bpm) BP BASELINE 70 112/62 STAGE 1 3:00 11 6 168/72 STAGE 2 3:00 13 6 180/64 STAGE 3 0:35 14 2 / RECOVERY 100 130/7 8 Stress Duration: 6:35 mm:ss Maximum Stress HR: 142 bpm Baseline Echocardiogram Findings The estimated ejection fraction is 65 %. Stress Echo Wall motion Data Resting WMIntermediate WMStress WM Resting Wall Motion Wall Motion Stress No regional wall motion No regional wall motion abnormalities noted. abnormalities noted. EKG Data Normal intervals are noted. The patient exercised according to the regular Yazan protocol for a total duration of 6:35. The maximum heart rate attained was 146 beats per minute. This was 102% of maximum predicted heart rate. The patient exercised into stage 3 of the Yazan protocol. During stress, there were no ST or T wave changes noted to suggest ischemia. No clinical angina was noted. Interpretation Summary The estimated ejection fraction is 65 %. Normal normal adequate treadmill echocardiogram. Negative for ischemia by EKG and echocardiographic criteria. No anginal symptoms noted. Rare PAC and PVCs during exercise and into recovery. Appropriate blood pressure response to exercise. Average exercise capacity for age. Test terminated due to the attainment of target heart rate and dyspnea. Final LVEF is 75%. Patient tolerated procedure well. No complications. Ordering Physician: Baltazar Tony Referring Physician: Baltazar Tony Performed By: Estephanie Goldman, DANIA, RVT 09/18/17 1644 Date Baltazar Tony MD CC: Baltazar Tony MD; Mars Eddy MD Date Dictated: 09/18/17 1048 Date Transcribed: 09/18/17 1644 Tube Pusher: Signed ECHOCARDIOGRAM COMPLETE Observed: 09/17/2017 Status: F Source: [place] 8:50 AM [facility] REPOSITORY [facility] Cardiovascular Services [address] [place] [address] Echo Complete 09/16/17 1059 MR#: [id number] Acct: [id number] Name: CINDY COSTA Rep #: [id number] : 1940 77 From: Baltazar Tony MD Attending Dr: Baltazar Tony MD Status: REG CLI Ordering Dr: Baltazar Tony MD Date: 09/16/17 Location: [facility] Sex: M C Admitted: Reason For Study: DYSPNEA Procedure This was a 2D Doppler, Color Flow transthoracic echocardiogram. Exam performed in department. Left Ventricle Mild concentric left ventricular hypertrophy. The estimated ejection fraction is 65 %. Stage 1 diastolic dysfunction. No regional wall motion abnormalities noted. Right Ventricle Normal size and thickness. Normal systolic function. Atria Normal left atrium. Normal right atrium. Normal atrial septum. Bubble contrast study negative for right to left interatrial shunt. Mitral Valve The mitral valve is structurally normal. No prolapse or stenosis seen. Trivial mitral valve insufficiency. Tricuspid Valve Normal tricuspid valve. Trivial tricuspid valve insufficiency. Right ventricular systolic pressure estimated to be 38 mmHg. Mild pulmonary hypertension. Aortic Valve Normal aortic valve. Trisinus/trileaflet aortic valve. Pulmonic Valve Normal pulmonic valve. Trivial pulmonic valve insufficiency. Great Vessels Normal aortic root. Normal arch. Normal inferior vena cava. Inferior vena cava collapse with sniff. Pericardium/Pleural No pericardial effusion. Medication 22 gauge I.V. with prn adaptor inserted into right arm. Performed a rapid injection of agitated mix of 9 cc saline and 1cc air to assess for atrial septal defect. MMode/2D Measurements AND Calculations LVIDd: 4.1 cm IVSd: 1.2 cm Ao root diam: 3.0 cm LVIDs: 2.7 cm LVPWd: 1.3 cm LA dimension: 3.6 cm RVDd: 3.5 cm FS: 35.3 % LAV(MOD-bp): 62.0 ml EDV(MOD-sp4): 138.0 ml EDV(MOD-sp2): 114.0 ml LAV(MOD-bp) Indexed: 26.3 ml/m2 ESV(MOD-sp4): 40.1 ml EF(MOD-sp2): 60.9 % LAV(MOD-sp2): 53.9 ml EF(MOD-sp4): 71.0 % LAV(MOD-sp4): 68.7 ml SV(MOD-sp4): 98.0 ml SV(MOD-sp2): 69.4 ml LA A4 area: 23.2 cm2 RA A4 area: 16.7 cm2 Doppler Measurements AND Calculations MV E max kendall: 73.8 cm/sec Ao V2 max: 177.2 cm/sec AI max kendall: 402.1 cm/sec MV A max kendall: 92.9 cm/sec Ao max P.6 mmHg AI max P.7 mmHg MV E/A: 0.79 AI dec slope: 242.8 cm/sec2 AI P1/2t: 485.0 msec LV V1 max: 167.9 cm/sec PA V2 max: 186.0 cm/sec TR max kendall: 267.4 cm/sec LV V1 max P.3 mmHg TR max P.9 mmHg Interpretation Summary Mild concentric left ventricular hypertrophy. The estimated ejection fraction is 65 %. Stage 1 diastolic dysfunction. Bubble contrast study negative for right to left interatrial shunt. Trivial mitral valve insufficiency. Trivial tricuspid valve insufficiency. Right ventricular systolic pressure estimated to be 38 mmHg. Mild pulmonary hypertension. There is no comparison study available. Ordering Physician: Baltazar Tony Referring Physician: Mars Eddy Chi Performed By: Riir Jeff, DANIA, RVT 09/17/17 0849 Date Baltazar Tony MD CC: Baltazar Tony MD; Mars Eddy MD Date Dictated: 09/16/17 1059 Date Transcribed: 09/17/17 0849 Tube Pusher: Signed PULMONARY VISIT REPORT Observed: 08/22/2017 Status: F Source: [place] 8:04 AM [facility] REPOSITORY [facility] [address] [place] [address] OFFICE VISIT Date of Service: 08/22/17 MR#: [id number] Acct: [id number] Name: CINDY COSTA Rep #: [id number] : 1940 Provider: Kash Brown, D.O. Age/Sex: 77/M Location: [facility] Status: Signed Assessment AND Plan 1. Cough R05 Plan The patient's current cough complaints have been present 3-4 days. They appear to be triggered by an upper airway cough syndrome secondary to postnasal drip. There is concern for allergic rhinitis, given the patient's presenting symptoms along with sneezing. Treatment and testing will be initiated as below. The patient will be provided with a sputum cup with instructions to return a sample if his cough becomes more productive and purulent in nature. Orders Orders: 2. Restrictive lung disease J98.4 mild Plan The patient's recent PFTs revealed evidence of a mild restrictive ventilatory defect, which may be secondary to his CT findings in conjunction with his overweight status. The report from the patient's recent CT chest was reviewed. However, the radiology system is currently down and I am therefore unable to personally review those chest images. However, a nonspecific pneumonitis as noted on the radiology report can be due to a number of different etiologies including infectious and inflammatory disorders. Nevertheless, at the present time, the patient is without any systemic signs or symptoms of infection. 3. Allergic rhinitis J30.9 Plan Patient's current symptoms seem most consistent with that of allergic rhinitis. We will plan to obtain a serum RAST test. Patient will also be started on Singulair and Flonase 2 sprays in each nostril daily. He will follow-up with her nurse practitioner in 1 month to assess his symptom response to therapy. Given that this is a recurrent issue for him, consideration can be given to referral to ENT in the future, if symptoms are unresolved. Orders Orders: Plan Detail Other Medications New: fluticasone 50 mcg/actuation (Flonase Allergy Relief) adminis2 sprays Intranasal QDAY ter into each nostril Follow Up 1 Month (CSM) HPI HPI Comments Details: The patient is a 77-year-old male who presents to the clinic today for a routine scheduled follow-up office visit. If you recall, the patient was initially referred to me in May 2017 for evaluation of recurrent bronchitis. He is currently followed by Dr. Eddy. The patient had reported that he had bronchitis 4 times over the last 2 years. He also reports symptoms of allergic rhinitis, which primarily occur in the spring and fall months. He has no known prior history of asthma. The patient is a lifelong non-smoker. Pulmonary function testing was completed in June 2017 revealed the presence of an isolated mild restrictive ventilatory defect with a symmetric reduction in diffusing capacity. A noncontrasted chest CT was obtained in July 2017 revealed the following: IMPRESSION: Probable mild chronic underlying interstitial lung disease. Suspect component of superimposed pneumonitis. Reactive lymphoid hyperplasia in the mediastinum suspected. Today, the patient reports having recently been evaluated by Dr. Tony of cardiology due to a syncopal event. He is currently order to undergo a surface echocardiogram and cardiac stress test. He does report that for the last 3-4 days he has been experiencing a cough, which has been productive of clear to yellow sputum, along with rhinorrhea, nasal congestion, postnasal drip, vocal hoarseness and frequent sneezing. He denies the presence of fevers or chills. He and his are planning to travel to [place] next week to vacation for 2 weeks. They do not have pets at home. They do not have a wood-burning stove or fireplace in the residence. The patient's weight has been stable. The patient has never had allergy testing completed previously. He reports no recent sick contact exposure. He denies chest pain, dizziness or lightheadedness. Intake Vital Signs08/22/17 Height 6 ft 4 in Intake Visit Reasons: 1 M FU Allergies azithromycin Allergy (Verified 08/20/17 15:19) unknown ciprofloxacin [From Cipro] Allergy (Verified 08/20/17 15:19) confusion Medications benzonatate 100 mg capsule 100 mg PO TID 07/23/17 [History Confirmed 07/24/17] lisinopril 10 mg tablet 10 mg PO QDAY 07/23/17 [History Confirmed 07/24/17] rabeprazole 20 mg tablet,delayed release 20 mg PO .COMPLEX 07/23/17 [History Confirmed 07/24/17] amoxicillin 500 mg capsule 500 mg PO TID cap 07/24/17 [History Confirmed 07/24/17] fluticasone 50 mcg/actuation nasal spray,suspension 2 spray INTRANASAL QDAY #1 device 08/22/17 [Rx Confirmed 08/22/17] montelukast 10 mg tablet 10 mg PO QHS #30 tab 08/22/17 [Rx Confirmed 08/22/17] [facility] Medical History Syncope and collapse (Acute) Hypertension (Chronic) Hyperlipidemia (Chronic) Shortness of breath on exertion (Chronic) Restrictive lung disease (Chronic) DDD (degenerative disc disease) (Acute) BPH (benign prostatic hyperplasia) (Chronic) GERD (gastroesophageal reflux disease) (Chronic) Hypogonadism (Chronic) ankle surgery (Chronic) Bronchitis (Inactive) Cough (Inactive) Wheezing (Inactive) Surgical History H/O bilateral inguinal hernia repair (Chronic) H/O sinus surgery (Chronic) History of prostate surgery (Chronic) Family History Brother Heart disease Social History Smoking Status: Never smoker second hand exposure: No alcohol intake: never substance use type: does not use Review of Systems Const CONSTITUTIONAL: Positive daytime sleepiness; negative anorexia, body ache, chills, fever(s), night sweats, oral thrush, stops breathing during sleep, weight loss, sleeping in chair, fatigue, weight loss, weight gain, frequent colds, seasonal allergies, other, headache(s) or orthopnea EETM Ear Nose Throat Mouth: Positive hearing normal, hoarseness, nasal congestion, nasal discharge, post nasal drip and sinus pressure; negative hard of hearing, dry mouth in morning, change in vision, itchy eyes, eye pain, swallowing Difficulty, ear pain, nose bleed, headache(s), mouth pain, sinus pain or sore throat Cardio Cardiovascular: Negative chest pain, chest pain at rest, chest pain with activity, irregular heart rhythm, edema, shortness of breath when lying down, palpitations, murmur or other Resp Respiratory: Positive as per HPI and cough cough: Positive productive color: Positive clear and white; negative shortness of breath, pain with cough, wheezing, chest congestion, chest tightness, pain on inspiration, inhalers, increase use of rescue inhalers, snoring, apnea or other Gastro Gastrointestional: Negative bloody stools, change in appetite, difficulty swallowing, reflux, hematemesis, melena stool, loose stool, constipation or other Genitourinary: Negative blood in urine, nocturia, pain with urination or other Musc Musculoskeletal: Positive neck pain; negative body pain, back pain or other Skin/Breast Skin/Breast: Negative dry skin, itching, rash, unusual bruising, breast lump or other Neuro Neurological: Negative restless legs, confusion, weakness or other Psych Psychocological: Negative abnormal sleep pattern, anxiety, thoughts of hurting self/others, hopelessness or other Lymph Lymphatic: Negative easy bleeding, easy bruising, swollen lymph nodes or other Exam Const Constitutional: Positive conversant, cooperative, in no acute respiratory distress, well developed, well nourished and good hygiene His is in attendance at today's office visit. Head Head: Positive normocephalic and atraumatic; negative cyanosis of lips/distal nose Eyes Eye: Positive clear conjunctiva; negative nystagmus or scleral abnormality Ears Ear: Positive hearing normal; negative hard of hearing Nose Nose: Positive external nose normal; negative epistaxis Mouth Mouth: Positive oral mucosae normal, posterior oropharynx is adequate and post nasal drip; negative no lesions Mallampati Score: I: Mallampati Score Neck Neck: Positive normal visual inspection and trachea midline; negative lymphadenopathy Chest Wall Chest: Positive symmetric chest movement Normal AP diameter. Resp lung sounds: Positive clear to auscultation and good air exchange; negative wheezes, rhonchi or rales Cardio Cardiac: Positive regular rate, regular rhythm, S1 normal and S2 normal; negative rub, gallop or murmur GI GI: Positive normal bowel sounds Soft without distention Genitourinary: Positive deferred Musc Musculoskeletal: Positive steady gait Skin Pulmonary Skin Exam: Positive intact; negative lesion, ulcers, dermal atrophy or rash Pulses Pulse: Yes Pedal pulses present: Extremities Extremities: No clubbing, No cyanosis, No edema Neuro Neurologic: Yes conversant, Yes no focal neuro deficits, Yes cooperative Lymph Lymphatic: No lymphadenopathy Psych Appearance: Positive grossly normal Mental Status: Positive mental status grossly normal Mood: Positive congruent mood Affect: Positive normal affect Coding Level of Care Code Off vis,est,level 3 Diagnoses Cough R05 Restrictive lung disease J98.4 Allergic rhinitis J30.9 08/22/17 0804 <Electronically signed by Kash Calle DO> Date Kash Calle DO Cosigner Signature: Date (if applicable) CC: Mars Eddy MD ALLERGENS, ZONE 8 Collected: 08/22/2017 Status: F Source: [place] 8:01 [facility] REPOSITORY Order Comment: Comments: ZONE 8 RAST Test(s) [id number] Cockroach, [place]; [id number] [place], White; [id number] Sweet Gum were developed and had performance characteristics determined by [employer]. These tests have not been cleared or approved by the U.S. Food and Drug Administration. The FDA has determined that such clearance or approval is not necessary. These tests are used for clinical purposes. These should not be regarded as investigational or for research. TYPE CODE TESTS RESULT OUT OF REFERENCE UNITS RANGE LAB L5500.1001 Class 0 kU/L D PTERONYSSINUS Normal <0.10 LAB L5500.1002 Class 0 kU/L D FARINAE MITE Normal <0.10 LAB L5500.2001 Class 0 kU/L CAT HAIR/DANDER Normal <0.10 LAB L5500.2002 Class 0 kU/L DOG EPITHELIA Normal <0.10 LAB L5500.4002 Class 0 kU/L BERMUDA GRASS Normal <0.10 LAB L5500.4008 Class 0 kU/L BLUE[place], [place] Normal <0.10 LAB L5500.4010 Class 0 kU/L OFE GRASS Normal <0.10 LAB L5500.4017 Class 0 kU/L BAHIA GRASS Normal <0.10 LAB L5500.5001 Class 0 kU/L PEN CHRYSOGEN Normal <0.10 LAB L5500.5002 Class 0 kU/L CLADOSPOR HERB Normal <0.10 LAB L5500.5003 Class 0 kU/L ASPERGILLUS FUM Normal <0.10 LAB L5500.5004 Class 0 kU/L MUCOR RACEMOSUS Normal <0.10 LAB L5500.5006 Class 0 kU/L A. ALTERNATA Normal <0.10 LAB L5500.5010 Class 0 kU/L STEMPHYLIUM HER Normal <0.10 LAB L5500.6007 Class 0 kU/L OAK, WHITE Normal <0.10 LAB L5500.6008 Class 0 kU/L ELM,AMER WHITE Normal <0.10 LAB L5500.6018 Class 0 kU/L MAPLE/BOX ELDER Normal <0.10 LAB L5500.6040 Class 0 kU/L HAZELNUT TREE Normal <0.10 LAB L5500.6041 Class 0 kU/L HICKORY, WHITE Normal <0.10 LAB L5500.6061 Class 0 kU/L SYCAMORE, AMER Normal <0.10 LAB L5500.6100 Class 0 kU/L MULBERRY, WHITE Normal <0.10 LAB L5500.6211 Class 0 kU/L SWEET GUM Normal <0.10 LAB L5500.6225 Class 0 kU/L CEDAR, MOUNTAIN Normal <0.10 LAB L5500.7001 Class 0 kU/L RAGWEED SH/COM Normal <0.10 LAB L5500.7006 Class 0 kU/L MUGWORT Normal <0.10 LAB L5500.7009 Class 0 kU/L PLANTAIN,ENGLSH Normal <0.10 LAB L5500.7014 Class 0 kU/L PIGWEED, ROUGH Normal <0.10 LAB L5500.7018 Class 0 kU/L SHEEP SORREL Normal <0.10 LAB L5500.7020 Class 0 kU/L NETTLE Normal <0.10 Result Comment: Performed at: [id number] Patrol: Jhon Mendoza MD, Phone: [phone] LAB L5500.7100 Class 0 kU/L COCKROACH,AMER Normal <0.10 LAB L5500.8100 . RAST COMMENT Normal Comment Result Comment: Levels of Specific IgE Class Description of Class ----- < 0.10 0 Negative 0.10 - 0.31 0/I Equivocal/Low 0.32 - 0.55 I Low 0.56 - 1.40 II Moderate 1.41 - 3.90 III High 3.91 - 19.00 IV Very High 19.01 - 100.00 V Very High >100.00 Very High Performed By: #### [id number] #### [facility] (refer to report for specific site) refer to report for address and phone number CARDIOLOGY VISIT Observed: 08/20/2017 Status: F Source: [place] REPORT 3:45 PM [facility] REPOSITORY [facility] [address] [place] [address] OFFICE VISIT Date of Service: 08/20/17 MR#: [id number] Acct: [id number] Name: CINDY COSTA Rep #: [id number] : 1940 Provider: Baltazar Tony MD Age/Sex: 77/M Location[place] [facility] [place]: Signed HPI HPI Chief Complaint: Syncope Details: Mr. Costa is a very pleasant 77-year-old gentleman with a history of hypertension, currently on lisinopril 10 mg for the past 5-6 years, hypercholesterolemia was on antilipid medication but developed myalgias and was subsequently discontinued, history of GERD, lifelong non-smoker and nondrinker. Patient was in normal health until around 8 AM on 07/30/17 at which time the patient took a hot shower and then was climbing up the stairs. The patient became progressively weaker and weaker as he ascended the stairs, culminating in a syncopal episode and falling to the ground. The patient was unconscious for approximately 10-15 seconds, was seen by his , spontaneously awoke, and had no seizure- like activity or loss of bowel or bladder function. He has had no previous syncopal episodes. He was then seen in Dr. Garcia's office about 2 hours later where an EKG showed normal sinus rhythm with first-degree AV block, no acute changes, no previous myocardial infarction noted. On further history the patient complains of mildly worsening dyspnea on exertion and shortness of breath for which he is seen Dr. Calle. Apparently underwent pulmonary function test with results pending. He denies any exertional angina, chest pain. He had a stress test and an echo several years ago but does not recall the results. He has never had a catheterization. In our office today's blood pressure is 1 2 0/76, pulse 78 and regular. His physical exam demonstrates clean carotids bilaterally, no carotid bruits or thrills, clear lungs bilaterally, regular rate and rhythm, normal S1/S2. He has no edema. Lipids are pending. TSH is normal. Intake Vital Signs08/20/17 Height 6 ft 4 in Intake Visit Reasons: Syncope Allergies azithromycin Allergy (Verified 08/20/17 15:19) unknown ciprofloxacin [From Cipro] Allergy (Verified 08/20/17 15:19) confusion Medications benzonatate 100 mg capsule 100 mg PO TID 07/23/17 [History Confirmed 07/24/17] lisinopril 10 mg tablet 10 mg PO QDAY 07/23/17 [History Confirmed 07/24/17] rabeprazole 20 mg tablet,delayed release 20 mg PO .COMPLEX 07/23/17 [History Confirmed 07/24/17] amoxicillin 500 mg capsule 500 mg PO TID cap 07/24/17 [History Confirmed 07/24/17] PFSH Family History Brother Heart disease Social History Smoking Status: Never smoker second hand exposure: No alcohol intake: never substance use type: does not use ROS Const Const: Negative for fatigue, difficulty sleeping, excessive sweating, weakness, frequent falls or headache(s) Eyes Eyes: Negative for loss of peripheral vision, transient loss of vision, blurry vision or double vision ENT ENT: Negative for Nosebleed/epistaxis, Negative for headache(s), Negative for dizziness, Negative for balance problems Cardio Chest Pain: No Edema: None Muscle aches with walking: None Resp Respiratory: Negative for SOB with activity, SOB at rest, SOB orthopnea\SOB lying down or paroxysmal nocturnal dyspnea GI GI: Negative nausea or heartburn : Negative for hematuria Musc Musc: Positive for joint pain (C-Spine pain); negative for muscle aches/ myalgia, muscle weakness or balance problems Skin Skin: Negative non-healing lesions, unusual bruising or rash Neuro Neuro: Negative for blurry vision, Negative for lightheadedness, Negative for orthostatic symptoms, Negative for double vision, Positive for syncope (Had episode when climbing stairs 3 weeks ago), Negative for weakness, Negative for frequent falls, Negative for headache(s), Negative for dizziness Hermilo Hematologic/Lymphatic: Negative for easy bruising Endo Endo: Negative for increased thirst/drinking, fatigue or excessive sweating Psych Psych: Negative for anxiety or depression Allergy Allergy/Immunology: Negative for hives, Negative for rash Cardiology Exam Const Appearance: cooperative, healthy appearing and no acute distress Nutritional Appearance: well nourished Orientation: alert, oriented x3 and oriented to person Head Head: normal to inspection, atraumatic and normocephalic Nose: external nose normal Face and Sinus: face symmetric Mouth: oral mucosae normal Eyes General: appearance normal, both eyes and all related structures Eyelids: eyelids normal Conjunctivae: conjunctivae normal Pupils: PERRL and normal by confrontation EOM: EOM intact bilaterally Neck Neck: normal visual inspection and full ROM Carotids: normal carotid upstroke Chest Chest inspection: normal inspection of the chest Auscultation: Bilateral: Clear to Auscultation Cardio Palpation: normal PMI Rate: regular rate Rhythm: regular rhythm Heart sounds: S1 normal and S2 normal GI GI: normal to inspection, no hepatosplenomegaly and bowel sounds present Neuro General: alert, oriented x3, awake, CN's II-XI intact bilaterally and moves all extremities Skin Skin: no rashes or lesions noted Extremities Pulses: Normal: Right Femoral Pulse, Left Femoral Pulse, Right Dorsalis Pedis Pulse, Left Dorsalis Pedis Pulse, Right Posterior Tibial Pulse, Left Posterior Tibial Pulse, Right Radial Pulse, Left Radial Pulse Lower Extremity Edema: None: Bilateral Psych Psychological: normal affect Assessment AND Plan 1. Syncope and collapse R55 Plan 1. Syncope: Patient had what appears to be syncope after taking a hot shower, but has had progressively worsening dyspnea on exertion and shortness of breath. For this reason I recommend he undergo a 2D echo with Doppler to document his LV function, valvular status and pulmonary pressures. If he has an abnormal LV, he may require a diagnostic coronary angiogram. In addition I recommend he undergo a treadmill echocardiogram to determine his blood pressure response to exercise, chronotropic competence, as well as ischemia. If this is grossly abnormal he may require diagnostic coronary angiogram. In addition I have advised the patient to avoid situations which may contribute to neurocardiogenic syncope with specific attention to hot showers, hot rooms, excessive clothing in a hot room, and avoiding dehydration. The patient is voiced understanding and agrees. 2. Hyperlipidemia: The patient has a history of hyperlipidemia however he was unable to tolerate statins due to muscle aches in the past. Recommend repeating lipid profile. He may benefit from primary prevention with antilipid therapy other than statin based medications. 3. Return office in 6 months. This note was generated using a voice recognition system and there may be incorrect words, spelling or punctuation that were not noted when reviewing the office note prior to saving. Orders Orders: Plan Detail Other Orders Orders: Follow Up 6 Months (Chavo) Coding Level of Care Code Off vis,new,level 4 Diagnoses Syncope and collapse R55 Coding Level of Care Code Off vis,new,level 4 Diagnoses Syncope and collapse R55 08/20/17 1545 <Electronically signed by Baltazar Tony MD> Date Baltazar Tony MD Cosigner Signature: Date (if applicable) CC: ALLERGIES ALLERGIES DATE TYPE / CODE NAME / CODE REACTION SEVERITY SOURCE Drug ciprofloxacin/F006 CONFUSION Unknown [place] [facility] Allergy/945808352( 231132(RXNORM) [facility] SNOMED CT) Hospital Repository Drug azithromycin/F0060 Unknown Unknown [place] [facility]ergy/898399000( 035[facility] Miscellaneous ENVIRONMENTAL Other Unknown [place] [facility] Allergy/763102148( ALLERGIES [facility] SNOMED [facility]) Hospital Repository ENCOUNTERS ENCOUNTERS ADMIT/DISCHARGE ACCOUNT ADMITTING ENCOUNTER LOCATION SOURCE NUMBER CLASS 07/30/2018 [id number] Ambulatory [place] [facility] ing:MFPLAB Repository 04/30/2018 [id number] Ambulatory [place] 9 [facility] ing:MFPLAB Repository 03/28/2018 [id number] Ambulatory [place] 5 [facility] ing:MFPLAB Repository 03/24/2018 [id number] Ambulatory BMSBuilding:B [place] [facility] Repository 03/21/2018 [id number] Ambulatory [place] 4 [facility] ing:MFPLAB Repository 03/19/2018/ [id number] Ambulatory BMSBuilding:B [place] [facility] 03/18/2018 [id number] Ambulatory [place] 2 [facility] ing:RAD Repository 03/04/2018/ [id number] Ambulatory [place] [facility] 2 [facility] ing:EN Repository 03/04/2018 [id number] Ambulatory BMSBuilding:B [place] 9 MS.CF.[facility] Repository 02/27/2018/ [id number] Ambulatory BMSBuilding:B [place] 8 0 MS.[facility] Repository 02/20/2018 [id number] [place]ulatory [place] 9 [facility] Hospital ing:POLAB3 Repository 02/18/2018 [id number] Ambulatory [place] 6 [facility] Hospital ing:POLAB3 Repository 01/29/2018/ [id number] Ambulatory BMSBuilding:B [place] 8 9 [facility] Repository 01/02/2018 [id number] Ambulatory [place] 7 [facility] ing:SL Repository 12/06/2017 [id number] Ambulatory [place] 5 [facility] ing:SL Repository 11/27/2017/ [id number] Ambulatory BMSBuilding:B [place] 8 3 [facility] Repository 09/23/2017/ [id number] Ambulatory BMSBuilding:B [place] [facility] 8 [facility] Repository 09/18/2017 [id number] Ambulatory [place] 9 [facility] Hospital ing:CVS Repository 09/18/2017 [id number] Ambulatory BMSBuilding:W [place] 4 [facility] Repository 09/16/2017 [id number] Ambulatory [place] 7 [facility] ing:CVS Repository 09/16/2017 [id number] Ambulatory BMSBuilding:W [place] 7 [facility] Hospital Repository 08/22/2017 [id number] Ambulatory [place] 2 [facility] ing:LAB Repository 08/22/2017/ [id number] Ambulatory BMSBuilding:B [place] 8 0 [facility] Repository 08/20/2017/ [id number] Ambulatory BMSBuilding:B [place] [facility] 8 [facility] Repository 08/19/2017 [id number] Ambulatory BMSBuilding:B [place] 8 [facility] Repository PAYERS PAYERS ENCOUNTER GUARANTOR PAYER SUBSCRIBER SOURCE 07/30/2018 CINDY Ortiz Primary CINDY Yuen [id number] Insurance:MEDICARE STEINERDOB: Community [facility] [id number] Rep[place] [address]Icj: 330 [id number] [phone] () Date:2018-07-30 07/30/2018 Secondary CINDY Yuen Insurance:GPM STEINERDOB: [facility] Number: [id number] [facility] [id number] Repository Date:5465-31-14MRXAMP [address], [place] [address]MZ: 07/30/2018 Tertiary NOT GIVENUNK [place] Insurance:SELF PAY [facility] Number: Effective Repository Date:2018-07-30 04/30/2018 CINDY Ortiz Primary CINDY Yuen [id number] Insurance:MEDICARE STEINERDOB: Community [facility] [facility] [id number] [address]Srq: 330 [id number] [phone] () Date:2018-04-30 04/30/2018 Secondary CINDY Yuen Insurance:GPM STEINERDOB: [facility] Number: [id number] Hospital [id number] Repository Date:6946-66-80MYRNNK [address], [place] [address]FV: 04/30/2018 Tertiary NOT GIVENUNK [place] Insurance:SELF PAY [facility] Number: Effective Repository Date:2018-04-30 03/28/2018 CINDY Ortiz Primary CINDY Yuen [id number] Insurance:MEDICARE STEINERDOB: Community [facility] [facility] [employer] [facility] [id number] Number: Repository [address]Zyy: [phone]) [id number] [phone] () Date:2018-03-28 03/28/2018 Secondary CINDY Yuen Insurance:GPM STEINERDOB: Community LIFEPolicy Number: [id number] Hospital [id number] Repository Date:8923-59-65RVHMIM [address], [place] [address]LQ: 03/28/2018 Tertiary NOT GIVENUNK [place] Insurance:SELF PAY [facility] Number: Effective Repository Date:2018-03-28 03/24/2018 CINDY Ortiz Primary CINDY Yuen [id number] Insurance:MEDICARE STEINERDOB: Community [employer] [facility] [id number] Number: Repository [address]Yhe: [phone] [id number] [phone] () Date:2017-08-20 03/24/2018 Secondary CINDY Ortiz [place] Insurance:GPM [facility] [id number] Hospital [id number] Repository Date:0412-31-13TMAHWF [address], [place] [address]VG: 03/24/2018 Tertiary NOT GIVENUNK [place] Insurance:SELF PAY [facility] Number: Effective Repository Date:2017-08-20 03/21/2018 CINDY Ortiz Primary CINDY Yuen [id number] Insurance:MEDICARE STEINERDOB: Community [facility] [facility] [employer] [facility] [id number] Number: Repository [address]Rrz: [phone] [id number] [phone] () Date:2018-03-21 03/21/2018 Secondary CINDY Ortiz [place] Insurance:GPM STEINERDOB: [facility] Number: [id number] Hospital [id number] Repository Date:5052-84-16OOEQAW [address], [place] [address]ZC: 03/21/2018 Tertiary NOT GIVENUNK [place] Insurance:SELF PAY [facility] Number: Effective Repository Date:2018-03-21 03/19/2018 CINDY Ortiz Primary CINDY Yuen [id number] Insurance:MEDICARE STEINERDOB: Community [facility] [id number] [place] Number: Repository [address]Lnh: 330 [id number] [phone] () Date:2017-09-23 03/19/2018 Secondary CINDY Yuen Insurance:GPM STEINERDOB: [facility] Number: [id number] Hospital [id number] Repository Date:9481-50-15BGMQHM [address], [place] [address]TB: 03/19/2018 Tertiary NOT GIVENUNK [place] Insurance:SELF PAY [facility] Number: Effective Repository Date:2018-03-12 03/18/2018 CINDY Ortiz Primary CINDY Yuen [id number] Insurance:MEDICARE STEINERDOB: Community [facility] [facility] [employer] [facility] [id number] [place] Number[facility] Repository [address]Yby: 330 [id number] [phone] () Date:2018-03-04 03/18/2018 Secondary CINDY Yuen Insurance:GPM STEINERDOB: [facility] Number: [id number] Hospital [id number] Repository Date:0958-86-09RZUBPJ [address], [place] [address]NS: 03/18/2018 Tertiary NOT GIVENUNK [place] Insurance:SELF PAY [facility] Number: Effective Repository Date:2018-03-04 03/04/2018 CINDY Ortiz Primary CINDY Yuen [id number] Insurance:MEDICARE STEINERDOB: Community [facility] [facility] [employer] [facility] [id number] [place] Number: Repository [address]Esq: 330 [id number] [phone] () Date:2018-02-28 03/04/2018 Secondary CINDY Ortiz [place] Insurance:GPM STEINERDOB: [facility] Number: [id number] Hospital [id number] Repository Date:9406-28-86DBEOJC [address], [place] [address]WW: 03/04/2018 Tertiary NOT GIVENUNK [place] Insurance:SELF PAY [facility] Number: Effective Repository Date:2018-02-28 03/04/2018 CINDY Ortiz Primary CINDY Yuen [id number] Insurance:MEDICARE STEINERDOB: Community [facility] [facility] [employer] [facility] [id number] [facility] Number: Repository [address]Ygm: 330 [id number] [phone] () Date:2018-02-28 03/04/2018 Secondary CINDY Yuen Insurance:GPM STEINERDOB: [facility] Number: [id number] Hospital [id number] Repository Date:7199-85-48JXDBLS [address], [place] [address]BA: 03/04/2018 Tertiary NOT GIVENUNK [place] Insurance:SELF PAY [facility] Number: Effective Repository Date:2018-03-04 02/27/2018 CINDY Ortiz Primary CINDY Yuen [id number] Insurance:MEDICARE STEINERDOB: Community [facility] [facility] [employer] [facility] [id number] [place] Number: Repository [address]Jpu: 330 [id number] [phone] () Date:2018-02-24 02/27/2018 Secondary CINDY Yuen Insurance:GPM STEINERDOB: [facility] LIFEPolicy Number: [id number] Hospital [id number] Repository Date:0751-98-81XUOVTR [address], [place] [address]WA: 02/27/2018 Tertiary NOT GIVENUNK [place] Insurance:SELF PAY [facility] Number: Effective Repository Date:2018-02-27 02/20/2018 CINDY Ortiz Primary CINDY Yuen [id number] Insurance:MEDICARE STEINERDOB: Community [facility] [employer] [facility] [id number] [place] Number: Repository [address]Axi: [phone]) [id number] [phone] () Date:2018-02-20 02/20/2018 Secondary CINDY Yuen Insurance:GPM STEINERDOB: Community LIFEPolicy Number: [id number] Hospital [id number] Repository Date:4135-40-52PZOKUG [address], [place] [address]KG: 02/20/2018 Tertiary NOT GIVENUNK [place] Insurance:SELF PAY [facility] Number: Effective Repository Date:2018-02-20 02/18/2018 CINDY Ortiz Primary CINDY Yuen [id number] Insurance:MEDICARE STEINERDOB: Community [facility] [employer] [facility] [id number] Number: Repository [address]Ber: [phone] [id number] [phone] () Date:2018-02-18 02/18/2018 Secondary CINDY Ortiz [place] Insurance:GPM STEINERDOB: [facility] Number: [id number] Hospital [id number] Repository Date:0114-65-92NLHNVJ [address], [place] [address]MX: 02/18/2018 Tertiary NOT GIVENUNK [place] Insurance:SELF PAY [facility] Number: Effective Repository Date:2018-02-18 01/29/2018 CINDY Ortiz Primary CINDY Yuen [id number] Insurance:MEDICARE STEINERDOB: Community [facility] [facility] [id number] Number: Repository [address]Iec: [phone] [id number] [phone] () Date:2017-11-27 01/29/2018 Secondary CINDY Ortiz [place] Insurance:GPM STEINERDOB: [facility] Number: [id number] Hospital [id number] Repository Date:5807-81-38BZIDLO [address], [place] [address]SE: 01/29/2018 Tertiary NOT GIVENUNK [place] Insurance:SELF PAY [facility] Number: Effective Repository Date:2018-01-22 01/02/2018 CINDY Ortiz Primary CINDY Yuen [id number] Insurance:MEDICARE STEINERDOB: Community [facility] [facility] [id number] [place] Number: Repository [address]Fph: 330 [id number] [phone] (HP) Date:2017-12-23 01/02/2018 Secondary CINDY Yuen Insurance:GPM STEINERDOB: [facility] Number: [id number] Hospital [id number] Repository Date:8723-15-48IXIPHC [address], [place] [address]ZF: 01/02/2018 Tertiary NOT GIVENUNK [place] Insurance:SELF PAY [facility] Number: Effective Repository Date:2017-12-23 12/06/2017 CINDY Ortiz Primary CINDY Yuen [id number] Insurance:MEDICARE STEINERDOB: Community [facility] [facility] [employer] [facility] [id number] [place] Number: Repository [address]Jbw: [id number] [phone] Date:2017-11-28 () 12/06/2017 Secondary CINDY Yuen Insurance:GPM STEINERDOB: [facility] Number: [id number] Hospital [id number] Repository Date:8605-80-61SWLCZC [address], [place] [address]TL: 12/06/2017 Tertiary NOT GIVENUNK [place] Insurance:SELF PAY [facility] Number: Effective Repository Date:2017-11-28 11/27/2017 CINDY Ortiz Primary CINDY Yuen [id number] Insurance:MEDICARE STEINERDOB: Community [facility] [facility] [employer] [facility] [id number] [place] Number: Repository [address]Gms: [id number] [phone] Date:2017-11-27 () 11/27/2017 Secondary CINDY Yuen Insurance:GPM STEINERDOB: [facility] LIFEPolicy Number: [id number] Hospital [id number] Repository Date:0606-01-05CMTOST [address], [place] [address]BO: 11/27/2017 Tertiary NOT GIVENUNK [place] Insurance:SELF PAY [facility] Number: Effective Repository Date:2017-11-27 09/23/2017 CINDY Ortiz Primary CINDY Yuen [id number] Insurance:MEDICARE STEINERDOB: Community [facility] [facility] [id number] Number: Repository [address]Jye: [id number] [phone] Date:2017-08-22 () 09/23/2017 Secondary CINDY Yuen Insurance:GPM STEINERDOB: [facility] LIFEPolicy Number: [id number] Hospital [id number] Repository Date:0730-58-46DXQOWN [address], [place] [address]TO: 09/23/2017 Tertiary NOT GIVENUNK [place] Insurance:SELF PAY [facility] Number: Effective Repository Date:2017-08-22 09/18/2017 CINDY Ortiz Primary CINDY Yuen [id number] Insurance:MEDICARE STEINERDOB: Community [employer] [facility] [id number] Number: Repository [address]Npk: [id number] [phone] Date:2017-08-20 () 09/18/2017 Secondary CINDY Yuen Insurance:GPM STEINERDOB: Community LIFEPolicy Number: [id number] Hospital [id number] Repository Date:8605-36-51ZNTUAA [address], [place] [address]CC: 09/18/2017 Tertiary NOT GIVENUNK [place] Insurance:SELF PAY [facility] Number: Effective Repository Date:2017-08-20 09/18/2017 CINDY Ortiz Primary CINDY Yuen [id number] Insurance:MEDICARE STEINERDOB: Community [employer] [facility] [id number] [place] Number: Repository [address]Lww: [id number] [phone] Date:2017-08-20 () 09/18/2017 Secondary CINDY Yuen Insurance:GPM STEINERDOB: Community LIFEPolicy Number: [id number] Hospital [id number] Repository Date:1914-24-28XKXIKU [address], [place] [address]RC: 09/18/2017 Tertiary NOT GIVENUNK [place] Insurance:SELF PAY [facility] Number: Effective Repository Date:2017-09-18 09/16/2017 CINDY Ortiz Primary CINDY Yuen [id number] Insurance:MEDICARE STEINERDOB: Community [employer] [facility] [id number] [facility] [place] Number: Repository [address]Afr: [id number] [phone] Date:2017-08-20 () 09/16/2017 Secondary CINDY Ortiz [place] Insurance:GPM STEINERDOB: [facility] LIFEPolicy Number: [id number] Hospital [id number] Repository Date:3996-81-17SCIKMO [address], [place] [address]SG: 09/16/2017 Tertiary NOT GIVENUNK [place] Insurance:SELF PAY [facility] Number: Effective Repository Date:2017-08-20 09/16/2017 CINDY Ortiz Primary CINDY Yuen [id number] Insurance:MEDICARE STEINERDOB: Community [employer] [facility] [id number] [place] Number: Repository [id number]: [id number] [phone] Date:2017-08-20 () 09/16/2017 Secondary CINDY Ortiz [place] Insurance:GPM STEINERDOB: [facility] LIFEPolicy Number: [id number] [facility] [id number] Repository Date:3145-09-12[address], [place] [address]FR: 09/16/2017 Tertiary NOT GIVENUNK [place] Insurance:SELF PAY [facility] Number: Effective Repository Date:2017-09-16 08/22/2017 CINDY Ortiz Primary CINDY Yuen [id number] Insurance:MEDICARE STEINERDOB: Community [employer] [id number] [place] Number: Repository [id number]: [id number] [phone] Date:2017-08-22 () 08/22/2017 Secondary CINDY Yuen Insurance:GPM STEINERDOB: Community LIFEPolicy Number: [id number] Hospital [id number] Repository Date:2147-84-50ZNPCSB [address], [place] [address]HK: 08/22/2017 Tertiary NOT GIVENUNK [place] Insurance:SELF PAY [facility] Number: Effective Repository Date:2017-08-22 08/22/2017 CINDY Ortiz Primary CINDY Yuen [id number] Insurance:MEDICARE STEINERDOB: Community [employer] A [id number] [place] Number: Repository [address]Ujn: [id number] [phone] Date:2017-07-24 () 08/22/2017 Secondary CINDY Yuen Insurance:GPM STEINERDOB: Community LIFEPolicy Number: [id number] Hospital [id number] Repository Date:3812-22-92PCDOXK [address], [place] [address]CM: 08/22/2017 Tertiary NOT GIVENUNK [place] Insurance:SELF PAY [facility] Number: Effective Repository Date:2017-07-24 08/20/2017 CINDY Ortiz Primary CINDY Yuen [id number] Insurance:MEDICARE STEINERDOB: Community [employer] PART A [facility] [id number] [place]: Repository [id number]: [id number] [phone] Date:2017-07-31 () 08/20/2017 Secondary CINDY Yuen Insurance:GPM STEINERDOB: Community LIFEPolicy Number: [id number] Hospital [id number] Repository Date:1597-44-11FWWWUB [address], [place] [address]BU: 08/20/2017 Tertiary NOT GIVENUNK [place] Insurance:SELF PAY [facility] Number: Effective Repository Date:2017-07-31 08/19/2017 CINDY Ortiz Primary CINDY Yuen [id number] Insurance:MEDICARE STEINERDOB: Community [employer] [address] [id number] [id number]: [id number] [phone] Date:2017-08-19 () 08/19/2017 Secondary CINDY Yuen Insurance:GP STEINERDOB: [facility] LIFEPolicy Number: [id number] Hospital [id number] Repository Date:[id number] [address], [place] [address]JX: 08/19/2017 Tertiary NOT GIVENUNK [place] Insurance:SELF PAY [facility]: Effective Repository Date:2017-08-19
== END ==
PROVIDERS: Family Provider Family Medicine; PCP Family Medicine; Visit Provider Family Medicine
DX: D64.9 Anemia, unspecified (principal)
CPT/HCPCS: 36415; 82728; 83540; 83550; 85027; 85045

== ENCOUNTER → 2019-01-19 | Outpatient (CLI) | payer MEDICARE, OTHER, SELFPAY ==
[2018-07-30 10:28] VITALS: BMI 29.3
[2019-01-19 17:29] LABS: Absolute Lymphocyte Count 1.37 X10^3/ul (0.83-4.51); Absolute Neutrophil Count 4.4 X10^3/uL (2.0-7.7); Basophil# 0.01 X10^3/uL; Basophil% 0.1 % (0-1); Eosinophil# 0.11 X10^3/uL; Eosinophils% 1.6 % (0-5); Hematocrit 42.9 % (40-54); Hemoglobin 14.3 g/dl (13.0-16.5); Lymphocyte # 1.37 X10^3/ul (4.0); Lymphocyte % 20.5 % (19-41); Mean Corp Hgb Conc 33.3 g/gl (32-36); Mean Corpuscular Volume 90.1 fL (80-94); Monocyte# 0.83 X10^3/uL; Monocyte% 12.4 % (0-10); Neutrophil # 4.36 X10^3/uL (2.7-7.7); Neutrophil % 65.4 % (47-70); Platelet Count 259 K/mm3 (150-450); RBC Distribution Width CV 13.3 % (11.6-14.6); RBC Distribution Width SD 43.2 fl (35.1-43.9); RET-HE 35.9 pg (30-35); Red Blood Count 4.76 M/mm3 (4.6-6.2); Reticulocyte Count 0.89 % (0.5-1.5); White Blood Count 6.7 K/mm3 (4.4-11.0)
[2019-01-19 17:34] LABS: POSITIVE COUNT NO; POSITIVE DIFFERENTIAL NO; POSITIVE MORPHOLOGY NO
[2019-01-19 18:34] LABS: Ferritin 47 ng/mL (26-388); Iron Binding Capacity,Total 293 ug/dL (250-450); PSA,Total - Annual Screen 1.54 ng/mL (0.00-4.00)
== END | disposition home or self-care (01) ==
LOC: MFPLAB 15:39
PROVIDERS: Family Provider Family Medicine; PCP Family Medicine; Visit Provider Family Medicine
DX: D64.9 Anemia, unspecified (principal); Z12.5 Encounter for screening for malignant neoplasm of prostate
CPT/HCPCS: 36415; 82728; 82746; 83550; 84153; 85025; 85045; G0103

== ENCOUNTER → 2019-08-04 10:16 | Outpatient (CLI) | payer MEDICARE, OTHER, SELFPAY ==
[2019-07-17 11:21] VITALS: BMI 30.5
[2019-08-04 12:52] LABS: ALB/GLOB Ratio 0.9 RATIO (0.9-2.4); AST(SGOT) 18 U/L (15-37); Alanine Aminotransfer ALT/SGPT 32 U/L (16-61); Albumin, Serum 3.7 g/dL (3.2-5.0); Alkaline Phosphatase 55 U/L (45-117); Anion Gap 4 (5-15); BUN 19 mg/dL (7-18); BUN/Creat Ratio 17.1 RATIO (10-20); Calcium,Total 8.8 mg/dL (8.5-10.1); Chloride 106 mmol/L (98-107); Cholesterol 194 mg/dL (200); Creatinine, Serum 1.11 mg/dL (0.70-1.30); EST Glomerular Filtration Rate 68 mL/min (>60); Est Glom Filt Rate - Afr Amer 82 mL/min (>60); Ferritin 31 ng/mL (26-388); Globulin 4.2 g/dL (2.2-4.2); Glucose 98 mg/dL (74-106); High Density Lipoprotein 43 mg/dL; Potassium 4.3 mmol/L (3.5-5.1); Protein, Total 7.9 g/dL (6.4-8.2); Sodium Level 137 mmol/L (136-145); Triglycerides 87 mg/dL; Very Low Density Lipoprotein 17 mg/dL (5-40)
[2019-08-04 14:23] LABS: Microalbumin,Random Urine 6.2 mg/L (NO RANGE EST.); Microalbumin:Creatinine Ratio 5.3 mg/g CRE (<30 mg/g CRE)
== END ==
PROVIDERS: PCP Family Medicine; Visit Provider Family Medicine
DX: Z00.00 Encounter for general adult medical examination without abnormal findings (principal); I10 Essential (primary) hypertension
CPT/HCPCS: 36415; 80053; 80061; 82043; 82570; 82728; 85018

== ENCOUNTER → 2020-02-25 11:05 | Outpatient (CLI) | payer MEDICARE, OTHER, SELFPAY ==
[2019-08-20 07:44] VITALS: BMI 30.7
[2020-02-25 12:15] LABS: Absolute Lymphocyte Count 1.05 X10^3/uL (0.83-4.51); Absolute Neutrophil Count 3.8 X10^3/uL (2.0-7.7); Basophil# 0.02 X10^3/uL; Basophil% 0.4 % (0-1); Eosinophil# 0.03 X10^3/uL; Eosinophils% 0.6 % (0-5); Hematocrit 44.4 % (40-54); Hemoglobin 14.3 g/dL (13.0-16.5); Lymphocyte # 1.05 X10^3/ul (4.0); Lymphocyte % 19.3 % (19-41); Mean Corp Hgb Conc 32.2 g/dL (32-36); Mean Corpuscular Hgb 28.5 pg (27.0-32.0); Mean Corpuscular Volume 88.4 fL (80-94); Monocyte# 0.51 X10^3/uL; Monocyte% 9.4 % (0-10); NRBC Flagged by Analyzer 0 % (0-5); Neutrophil # 3.81 X10^3/uL (2.7-7.7); Neutrophil % 69.7 % (47-70); Platelet Count 322 K/mm3 (150-450); RBC Distribution Width CV 14.5 % (11.6-14.6); RBC Distribution Width SD 46.1 fl (35.1-43.9); Red Blood Count 5.02 M/mm3 (4.6-6.2); White Blood Count 5.5 K/mm3 (4.4-11.0)
[2020-02-25 13:02] LABS: ALB/GLOB Ratio 1.1 RATIO (0.9-2.4); AST(SGOT) 15 U/L (15-37); Alanine Aminotransfer ALT/SGPT 22 U/L (16-61); Albumin, Serum 4.1 g/dL (3.2-5.0); Alkaline Phosphatase 45 U/L (45-117); Anion Gap 5 (5-15); BUN 18 mg/dL (7-18); BUN/Creat Ratio 14.6 RATIO (10-20); Calcium,Total 9.2 mg/dL (8.5-10.1); Chloride 109 mmol/L (98-107); Creatinine, Serum 1.23 mg/dL (0.70-1.30); EST Glomerular Filtration Rate 60 mL/min (>60); Est Glom Filt Rate - Afr Amer 73 mL/min (>60); Globulin 3.7 g/dL (2.2-4.2); Glucose 125 mg/dL (74-106); Magnesium 2.2 mg/dL (1.6-2.6); Potassium 3.9 mmol/L (3.5-5.1); Protein, Total 7.8 g/dL (6.4-8.2); Sodium Level 141 mmol/L (136-145); Thyroid Stim Hormone (TSH) 1.46 uIU/mL (0.358-3.74)
== END ==
PROVIDERS: PCP Family Medicine; Referring Provider Family Medicine; Visit Provider Family Medicine
DX: R42 Dizziness and giddiness (principal)
CPT/HCPCS: 36415; 80053; 82306; 83735; 84443; 85025

== ENCOUNTER → 2020-05-17 11:13 | Outpatient (CLI) | payer MEDICARE, OTHER, SELFPAY ==
[2019-08-20 07:44] VITALS: BMI 30.7
[2020-05-17 12:39] LABS: PSA,Total- Diagnostic 2.16 ng/mL (0.0-4.0)
== END ==
PROVIDERS: PCP Family Medicine; Referring Provider Urology; Visit Provider Urology
DX: N40.1 Benign prostatic hyperplasia with lower urinary tract symptoms (principal)
CPT/HCPCS: 36415; 84153

== ENCOUNTER 2020-08-26 09:21 | Outpatient (RCR) | payer MEDICARE, OTHER, SELFPAY ==
[2020-08-11 10:59] VITALS: BMI 31.1
== END 2020-08-26 23:59 ==
LOC: IMMUN 09:21
PROVIDERS: PCP Family Medicine; Referring Provider Family Medicine; Visit Provider Family Medicine
DX: Z23 Encounter for immunization (principal)
CPT/HCPCS: 0011A; 0012A

== ENCOUNTER → 2020-11-30 11:22 | Outpatient (CLI) | payer MEDICARE, OTHER, SELFPAY ==
[2020-11-11 12:54] VITALS: BMI 31.2
[2020-11-30 11:34] LABS: Lyme Ab Screen Interpretation REF LAB
[2020-11-30 15:03] LABS: Absolute Lymphocyte Count 0.99 X10^3/uL (0.83-4.51); Absolute Neutrophil Count 3.5 X10^3/uL (2.0-7.7); Basophil# 0.03 X10^3/uL; Basophil% 0.6 % (0-1); Eosinophil# 0.05 X10^3/uL; Hematocrit 40.8 % (40-54); Hemoglobin 12.7 g/dL (13.0-16.5); Lymphocyte # 0.99 X10^3/ul (0.83-4.51); Mean Corp Hgb Conc 31.1 g/dL (32-36); Mean Corpuscular Hgb 27.5 pg (27.0-32.0); Mean Corpuscular Volume 88.3 fL (80-94); Mean Platelet Vol. 8.9 fl (6.2-12.0); Monocyte# 0.64 X10^3/uL; Monocyte% 12.3 % (0-10); NRBC Flagged by Analyzer 0 % (0-5); Neutrophil # 3.49 X10^3/uL (2.7-7.7); Neutrophil % 66.7 % (47-70); Platelet Count 318 K/mm3 (150-450); RBC Distribution Width CV 13.2 % (11.6-14.6); Red Blood Count 4.62 M/mm3 (4.6-6.2); White Blood Count 5.2 K/mm3 (4.4-11.0)
[2020-11-30 15:23] LABS: Vitamin B12 > 2000 pg/mL (211-911)
[2020-11-30 15:53] LABS: Microalbumin,Random Urine < 5.0 mg/L (NO RANGE EST.)
[2020-11-30 16:12] LABS: AST(SGOT) 15 U/L (15-37); Alanine Aminotransfer ALT/SGPT 22 U/L (16-61); Albumin, Serum 3.8 g/dL (3.2-5.0); Alkaline Phosphatase 47 U/L (45-117); Anion Gap 7 (5-15); BUN 20 mg/dL (7-18); BUN/Creat Ratio 15.7 RATIO (10-20); Calcium,Total 8.6 mg/dL (8.5-10.1); Chloride 105 mmol/L (98-107); Creatinine, Serum 1.27 mg/dL (0.70-1.30); EST Glomerular Filtration Rate 58 mL/min (>60); Est Glom Filt Rate - Afr Amer 70 mL/min (>60); Globulin 3.9 g/dL (2.2-4.2); Glucose 80 mg/dL (74-106); Potassium 4.2 mmol/L (3.5-5.1); Protein, Total 7.7 g/dL (6.4-8.2); Sodium Level 139 mmol/L (136-145); Thyroid Stim Hormone (TSH) 1.01 uIU/mL (0.358-3.74)
[2020-12-02 16:38] LABS: Lyme Scn Total Ab w/Rflx <0.91 ISR (0.00-0.90)
== END ==
PROVIDERS: PCP Family Medicine; Referring Provider Family Medicine; Visit Provider Family Medicine
DX: G31.84 Mild cognitive impairment of uncertain or unknown etiology (principal); I10 Essential (primary) hypertension
CPT/HCPCS: 36415; 80053; 82043; 82570; 82607; 82746; 84443; 85025; 86618

== ENCOUNTER → 2021-06-27 15:38 | Outpatient (CLI) | payer MEDICARE, OTHER, SELFPAY ==
[2021-06-27 18:05] LABS: Anion Gap 7 (5-15); BUN 27 mg/dL (7-18); BUN/Creat Ratio 21.8 RATIO (10-20); Calcium,Total 9.4 mg/dL (8.5-10.1); Chloride 106 mmol/L (98-107); Creatinine, Serum 1.24 mg/dL (0.70-1.30); EST Glomerular Filtration Rate 59 mL/min (>60); Est Glom Filt Rate - Afr Amer 72 mL/min (>60); Glucose 79 mg/dL (74-106); Potassium 4.4 mmol/L (3.5-5.1); Sodium Level 138 mmol/L (136-145)
== END ==
PROVIDERS: PCP Family Medicine; Visit Provider Family Medicine
DX: I10 Essential (primary) hypertension (principal)
CPT/HCPCS: 36415; 80048

== ENCOUNTER 2021-10-25 16:55 | Outpatient (CLI) | payer MEDICARE, OTHER, SELFPAY ==
[2021-10-25 17:52] LABS: Absolute Neutrophil Count 3.8 X10^3/uL (2.0-7.7); Basophil# 0.04 X10^3/uL; Basophil% 0.7 % (0-1); Eosinophil# 0.09 X10^3/uL; Eosinophils% 1.5 % (0-5); Hematocrit 27.5 % (40-54); Hemoglobin 8.6 g/dL (13.0-16.5); Lymphocyte % 21.8 % (19-41); Mean Corp Hgb Conc 31.3 g/dL (32-36); Mean Corpuscular Hgb 24.5 pg (27.0-32.0); Mean Corpuscular Volume 78.3 fL (80-94); Mean Platelet Vol. 8.6 fl (6.2-12.0); Monocyte# 0.75 X10^3/uL; Monocyte% 12.6 % (0-10); NRBC Flagged by Analyzer 0 % (0-5); Neutrophil # 3.77 X10^3/uL (2.7-7.7); Neutrophil % 63.2 % (47-70); Platelet Count 429 K/mm3 (150-450); RBC Distribution Width CV 14.6 % (11.6-14.6); RBC Distribution Width SD 41.9 fl (35.1-43.9); Red Blood Count 3.51 M/mm3 (4.6-6.2)
[2021-10-25 18:06] LABS: Erythrocyte Sedimentation Rate 11 mm/hr (0-20)
[2021-10-25 18:51] LABS: ALB/GLOB Ratio 1.2 RATIO (0.9-2.4); AST(SGOT) 13 U/L (15-37); Alanine Aminotransfer ALT/SGPT 19 U/L (16-61); Albumin, Serum 3.7 g/dL (3.2-5.0); Alkaline Phosphatase 39 U/L (45-117); Anion Gap 6 (5-15); BUN 20 mg/dL (7-18); BUN/Creat Ratio 17.4 RATIO (10-20); Calcium,Total 8.3 mg/dL (8.5-10.1); Chloride 108 mmol/L (98-107); Creatinine, Serum 1.15 mg/dL (0.70-1.30); EST Glomerular Filtration Rate 65 mL/min (>60); Est Glom Filt Rate - Afr Amer 78 mL/min (>60); Glucose 101 mg/dL (74-106); Potassium 4.4 mmol/L (3.5-5.1); Protein, Total 6.7 g/dL (6.4-8.2); Sodium Level 139 mmol/L (136-145); Thyroid Stim Hormone (TSH) 1.43 uIU/mL (0.358-3.74)
[2021-10-27 13:59] LABS: Ferritin 7 ng/mL (26-388); Iron 16 ug/dL (65-175); Iron Binding Capacity,Total 451 ug/dL (250-450); PERCENT IRON SATURATION 3.5 % (15.0-55.0)
[2021-10-27 14:02] LABS: RET-HE 20.9 pg (30-35)
== END 2021-10-25 23:59 | disposition home or self-care (01) ==
LOC: MFPLAB 16:58
PROVIDERS: PCP Family Medicine; Referring Provider Family Medicine; Visit Provider Family Medicine
DX: D64.9 Anemia, unspecified (principal); R53.81 Other malaise; R53.83 Other fatigue
CPT/HCPCS: 36415; 80053; 82728; 83540; 83550; 84443; 85025; 85045; 85652

== ENCOUNTER 2021-10-26 10:46 | Outpatient (CLI) | payer MEDICARE, OTHER, SELFPAY ==
--- NOTE | 2021-10-26 10:54 | VDLE_ITS ---
Reason For Study: edema RIGHT GSV is normal. CFV is compressible, spontaneous, phasic, competent and demonstrates normal augmentation. FV is compressible, spontaneous, phasic, competent and demonstrates normal augmentation. POP V is compressible, spontaneous, phasic, competent and demonstrates normal augmentation. T/P Trunk is compressible. PTV is compressible. RT PerV is compressible. Procedure This is a venous duplex using B-mode, color flow and spectral Doppler. Exam performed in department. The exam was abbreviated due to the COVID 19 protocol. The exam was diagnostic. A preliminary report was called and/or faxed to Dr. Siddiqui. VL/Venous Duplex US, Unilateral Interpretation Summary Deep veins of the right lower extremity are patent and compressible segmentally . There is no evidence of right lower extremity deep vein thrombosis. Valvular competence edwin ears intact within the proximal deep venous system on the right . The right great saphenous vein a ppears patent and compressible segmentally. Ordering Physician: Rimma Siddiqui Performed By: Aden Gutiérrez RVT
== END 2021-10-26 23:59 | disposition home or self-care (01) ==
PROVIDERS: PCP Family Medicine; Referring Provider Family Medicine; Visit Provider Family Medicine
DX: R60.0 Localized edema (principal)
CPT/HCPCS: 93971

== ENCOUNTER 2021-11-02 13:10 | Outpatient (CLI) | payer MEDICARE, OTHER, SELFPAY ==
[2021-11-02 15:03] LABS: Hematocrit 30.8 % (40-54); Hemoglobin 8.9 g/dL (13.0-16.5); Mean Corp Hgb Conc 28.9 g/dL (32-36); Mean Corpuscular Hgb 23.4 pg (27.0-32.0); Mean Corpuscular Volume 81.1 fL (80-94); Mean Platelet Vol. 9.3 fl (6.2-12.0); Platelet Count 457 K/mm3 (150-450); RBC Distribution Width CV 16.6 % (11.6-14.6); RBC Distribution Width SD 46.4 fl (35.1-43.9)
== END 2021-11-02 23:59 | disposition home or self-care (01) ==
PROVIDERS: PCP Family Medicine; Referring Provider Family Medicine; Visit Provider Family Medicine
DX: D64.9 Anemia, unspecified (principal)
CPT/HCPCS: 36415; 85027

== ENCOUNTER → 2021-12-25 | Outpatient (CLI) | payer MEDICARE, OTHER, SELFPAY ==
[2021-12-25 12:11] LABS: Absolute Lymphocyte Count 0.98 X10^3/uL (0.83-4.51); Absolute Neutrophil Count 4.1 X10^3/uL (2.0-7.7); Basophil# 0.02 X10^3/uL; Basophil% 0.4 % (0-1); Eosinophil# 0.07 X10^3/uL; Eosinophils% 1.2 % (0-5); Hematocrit 43.6 % (40-54); Hemoglobin 13.8 g/dL (13.0-16.5); Lymphocyte # 0.98 X10^3/ul (0.83-4.51); Lymphocyte % 17.2 % (19-41); Mean Corp Hgb Conc 31.7 g/dL (32-36); Mean Corpuscular Hgb 27.2 pg (27.0-32.0); Mean Platelet Vol. 8.8 fl (6.2-12.0); Monocyte% 8.8 % (0-10); NRBC Flagged by Analyzer 0 % (0-5); Neutrophil # 4.11 X10^3/uL (2.7-7.7); Neutrophil % 72.2 % (47-70); Platelet Count 299 K/mm3 (150-450); RBC Distribution Width CV 18.8 % (11.6-14.6); RBC Distribution Width SD 58.7 fl (35.1-43.9); Red Blood Count 5.07 M/mm3 (4.6-6.2); White Blood Count 5.7 K/mm3 (4.4-11.0)
[2021-12-25 12:31] LABS: Iron 73 ug/dL (65-175)
== END | disposition home or self-care (01) ==
LOC: MFPLAB 10:56
PROVIDERS: Internal Medicine Gastroenterology; PCP Family Medicine; Visit Provider Family Medicine
DX: D50.9 Iron deficiency anemia, unspecified (principal); R53.83 Other fatigue
CPT/HCPCS: 36415; 83540; 85025

== ENCOUNTER → 2022-03-27 | Outpatient (CLI) | payer MEDICARE, OTHER, SELFPAY ==
[2022-03-27 12:17] LABS: Absolute Lymphocyte Count 0.89 X10^3/uL (0.83-4.51); Absolute Neutrophil Count 4.2 X10^3/uL (2.0-7.7); Basophil# 0.03 X10^3/uL; Basophil% 0.5 % (0-1); Eosinophil# 0.11 X10^3/uL; Eosinophils% 1.9 % (0-5); Hematocrit 43.2 % (40-54); Hemoglobin 14.2 g/dL (13.0-16.5); Lymphocyte # 0.89 X10^3/ul (0.83-4.51); Lymphocyte % 15.1 % (19-41); Mean Corp Hgb Conc 32.9 g/dL (32-36); Mean Corpuscular Hgb 30.1 pg (27.0-32.0); Mean Corpuscular Volume 91.5 fL (80-94); Mean Platelet Vol. 9.1 fl (6.2-12.0); Monocyte# 0.64 X10^3/uL; Monocyte% 10.8 % (0-10); NRBC Flagged by Analyzer 0 % (0-5); Neutrophil # 4.21 X10^3/uL (2.7-7.7); Neutrophil % 71.4 % (47-70); Platelet Count 318 K/mm3 (150-450); RBC Distribution Width CV 13.5 % (11.6-14.6); RBC Distribution Width SD 45.1 fl (35.1-43.9); RET-HE 34.7 pg (30-35); Red Blood Count 4.72 M/mm3 (4.6-6.2); Reticulocyte Count 1.51 % (0.5-1.5); White Blood Count 5.9 K/mm3 (4.4-11.0)
[2022-03-27 12:44] LABS: Vitamin B12 459 pg/mL (211-911)
[2022-03-27 12:59] LABS: AST(SGOT) 18 U/L (15-37); Alanine Aminotransfer ALT/SGPT 24 U/L (16-61); Albumin, Serum 3.9 g/dL (3.2-5.0); Alkaline Phosphatase 49 U/L (45-117); Anion Gap 7 (5-15); BUN 19 mg/dL (7-18); BUN/Creat Ratio 15.6 RATIO (10-20); Calcium,Total 9.5 mg/dL (8.5-10.1); Chloride 107 mmol/L (98-107); Creatinine, Serum 1.22 mg/dL (0.70-1.30); EST Glomerular Filtration Rate 60 mL/min (>60); Est Glom Filt Rate - Afr Amer 73 mL/min (>60); Ferritin 76 ng/mL (26-388); Globulin 3.9 g/dL (2.2-4.2); Glucose 122 mg/dL (74-106); Iron 131 ug/dL (65-175); Iron Binding Capacity,Total 313 ug/dL (250-450); Potassium 4.3 mmol/L (3.5-5.1); Protein, Total 7.8 g/dL (6.4-8.2); Sodium Level 139 mmol/L (136-145); Thyroid Stim Hormone (TSH) 1.63 uIU/mL (0.358-3.74)
== END | disposition home or self-care (01) ==
PROVIDERS: PCP Family Medicine; Visit Provider Family Medicine
DX: G31.84 Mild cognitive impairment of uncertain or unknown etiology (principal); I10 Essential (primary) hypertension; E61.1 Iron deficiency
CPT/HCPCS: 36415; 80053; 82607; 82728; 83540; 83550; 84443; 85025; 85045

== ENCOUNTER 2022-09-03 16:47 | Inpatient (IN) | payer MEDICARE, OTHER, SELFPAY ==
[2022-09-03] VITALS (11 sets, daily range): BP systolic 149–195; BP diastolic 72–90; PULSE 68–85; RESP 14–24; TEMP 36.1–37.2; O2SAT 86–94; BMI 31.6; BMI 31.1
--- NOTE | 2022-09-03 17:20 | EKG12_ITS ---
Test Reason : Blood Pressure : / mmHG Vent. Rate : 083 BPM Atrial Rate : 083 BPM P-R Int : 224 ms QRS Dur : 088 ms QT Int : 374 ms P-R-T Axes : 051 -10 022 degrees QTc Int : 439 ms Sinus rhythm with 1st degree A-V block Otherwise normal ECG Confirmed by JOSE ARMANDO JORDAN, RAHUL ([id number]), magazine editor IRVING PRINGLE ([id number]) on 09/04/2022 11:28:08 AM Referred By: MEGAN Confirmed By:RAHUL SUÁREZ MD
--- NOTE | 2022-09-03 17:21 | ED.VIS.DYS ---
HPI History of Present Illness Chief Complaint: Shortness of Breath Detail of Chief Complaint: Shortness of breath and weakness Informant: patient and spouse/S.O. Narrative Narrative: Patient presents the emergency department complaint of shortness of breath and generalized weakness. Patient states that the breathing recently became more labored yesterday and people noticed it in quaker. Patient states he is actually been feeling somewhat short of breath for about a week. About 2 or 3 weeks ago he had bronchitis and sinusitis. Patient denies any chest pain. He does describe exertional dyspnea. Sitting up he feels better than lying flat. Patient denies any fevers. He denies recent travel or surgery. No history of PE or DVT. No history of CHF. Does have history of asthma. [facility] Medical History (Updated 09/03/22 @ 20:[address] Franklin Cervantes, ) Allergic rhinitis ankle surgery BPH (benign prostatic hyperplasia) Bronchitis Cough Cough Daytime hypersomnia DDD (degenerative disc disease) GERD (gastroesophageal reflux disease) Hyperlipidemia Hypertension Hypogonadism Iron deficiency anemia FREDI (obstructive sleep apnea) Restrictive lung disease Shortness of breath on exertion Syncope and collapse Wheezing Home Medications lisinopril 10 mg tablet 20 mg PO QHS BP 02/27/18 [History Last Taken Unknown] ferrous sulfate 325 mg (65 mg iron) tablet 325 mg PO DAILY #90 tabs 03/04/18 [Rx Last Taken Unknown] donepezil 5 mg tablet 5 mg PO QHS . 09/03/22 [History Last Taken 09/02/22] fluticasone 500 mcg-salmeterol 50 mcg/dose blistr powdr for inhalation (Wixela Inhub) 1 inh inhalation BID #60 ea 09/03/22 [Rx Last Taken Unknown] Allergy/AdvReac Type Severity Reaction Status Date / Time azithromycin Allergy unknown Verified 09/03/22 16:48 ciprofloxacin [From Cipro] Allergy confusion Verified 09/03/22 16:48 Environmental Allergies: Allergy NEEDS Verified 09/03/22 16:48 Uncoded FOLLOW-UP Family History (Reviewed 11/11/20 @ 14:[address] SERVICE LOCKSMITH, ROAD SERVICE LOCKSMITH-C) Brother Heart disease Surgical History (Reviewed 11/11/20 @ 14:[address] SERVICE LOCKSMITH, ROAD SERVICE LOCKSMITH-C) H/O bilateral inguinal hernia repair H/O sinus surgery History of prostate surgery Social History (Reviewed 11/11/20 @ 14:[address] SERVICE LOCKSMITH, ROAD SERVICE LOCKSMITH-C) Smoking Status: Never smoker second hand exposure: No alcohol intake: never substance use type: does not use ROS ROS ED Review of Systems ROS Unobtainable: other Constitutional Constitutional ED: Reports lethargy; Denies chills, fever(s), sweats or weight loss Eyes Eyes: Denies blurry vision, change in vision or diplopia ENT ENT ED: Denies rhinorrhea or sore throat Cardiovascular Cardiovascular: Denies chest pain, orthopnea or racing heartbeat Respiratory/Chest Respiratory/Chest: Reports dyspnea and dyspnea on exertion; Denies cough, orthopnea or sputum Gastrointestinal Gastrointestinal: Denies abdominal pain, diarrhea, nausea or vomiting Genitourinary Genitourinary ED: Denies dysuria, hematuria or urinary frequency Musculoskeletal Musculoskeletal: Denies arthralgias, back pain, myalgias or neck pain Integumentary Denies abscess, Abrasions or rash Neurologic Neurologic: Reports other Details: Generalized weakness ; Denies headache(s) or weakness Psychiatric Psychiatric: Denies anxiety, depression or suicidal thoughts Endocrine Endocrinology: Denies polydipsia, polyphagia or polyuria Hematologic/Lymphatic Hematologic/Lymphatic: Denies easy bleeding, easy bruising or lymphadenopathy Allergic/Immunologic Allergic/Immunologic ED: Denies mouth swelling, tongue swelling or urticaria EXAM Physical Exam Const Vital Signs: 09/03/22 16:48 09/03/22 17:47 09/03/22 17:48 Temperature 97 F L Temperature Source Temporal Pulse Rate 85 Respiratory Rate 14 Respiratory Effort Short of Breath Respiratory Pattern Tachypnea Blood Pressure 163/72 H Blood Pressure Mean 102 Pulse Ox 90 93 Oxygen Delivery Method Room Air Room Air Nasal Cannula Oxygen Flow Rate (L/min) 2 09/03/22 17:49 09/03/22 18:37 Temperature Temperature Source Pulse Rate 84 84 Respiratory Rate 24 H 24 H Respiratory Effort Respiratory Pattern Tachypnea Blood Pressure 149/74 H Blood Pressure Mean 99 Pulse Ox 92 Oxygen Delivery Method Nasal Cannula Oxygen Flow Rate (L/min) 3 Positive well nourished and well developed General Appearance ED: well developed and NAD HEENT Reports TM's clear and moist mucous membranes normocephalic and atraumatic; Negative for trauma or tenderness Tympanic Membrane ED: Yes TM's clear Eyes PERRL and EOMs intact bilaterally General Eye ED: Negative for pale conjunctiva or scleral icterus Neck no lymphadenopathy, supple and no JVD General: Negative for tenderness Chest Wall inspection of chest normal and palpation of chest normal Chest: Negative for tenderness Resp normal respiratory effort and clear to auscultation bilaterally Resp Narrative: Occasional faint expiratory wheeze noted. No significant rales. Mild tachypnea. No accessory muscle use or retractions. No conversational dyspnea. Effort and Inspection: Negative for respiratory distress or pain with movement Auscultation: Negative for rhonchi, wheezes or diminished lung sounds Cardio regular rate, regular rhythm, S1 normal heart sound, S2 normal heart sound and no murmurs Peripheral Pulses: pulses 2+ throughout GI normal to inspection, nondistended, normoactive bowel sounds, soft to palpation, non-tender, non-distended and no masses Back/Spine no CVA tenderness and no thoracic nor lumbar tenderness Extremity normal to inspection General Extremety ED: Negative for edema General Extremity: Negative for edema Neuro oriented x3, CN's II-XII intact bilaterally, no sensory deficits noted and gait normal Sensorium / Orientation: awake, alert, oriented to person, oriented to place and oriented to time Motor Exam: strength 5/5 throughout and strength abnormal Psych mental status grossly normal Skin no rashes or lesions noted and no wounds MDM MDM MDM Narrative Medical decision making narrative: IV line established on arrival. Patient placed on a bus driver/monitor. EKG obtained showed sinus rhythm with a first-degree AV block otherwise no acute ST segment changes. CBC with differential was unremarkable. Chemistries unremarkable. Troponin was elevated at 105. D-dimer was 17.13. BNP was normal at 244. Patient I suspect has a slightly elevated troponin likely related to heart strain due to pulmonary emboli noted on CTA of the chest. Patient did drop his O2 sat into the mid 80s and was started on nasal cannula O2. Patient otherwise hemodynamically stable. Case discussed with hospitalist to evaluate patient for admission. I was asked to start patient on a heparin drip. Patient will be admitted to hospital service Dr. Manuel. Lab Data Attestation: I reviewed the patient's lab results. Labs: Laboratory Results - last 24 hr 09/03/22 09/03/22 09/03/22 17:51 17:51 17:51 WBC 7.8 RBC 5.10 Hgb 15.2 Hct 47.1 MCV 92.4 MCH 29.8 MCHC 32.3 RDW Std Deviation 45.5 H RDW Coeff of Candy 13.5 Plt Count 245 MPV 8.9 Immature Gran % (Auto) 0.300 Neut % (Auto) 75.5 H Lymph % (Auto) 9.9 L [place] % (Auto) 11.6 H Eos % (Auto) 2.3 Baso % (Auto) 0.4 Absolute Neuts (auto) 5.9 Absolute Lymphs (auto) 0.77 L Nucleated RBC % 0 D-Dimer Quant (PE/DVT) 17.13 H* Sodium 139 Potassium 4.4 Chloride 106 Carbon Dioxide 26.0 Anion Gap 7 BUN 20 H Creatinine 1.32 H Estim Creat Clear Calc 50.68 Est GFR (MDRD) Af Amer 67 Est GFR (MDRD) Non-Af 55 L BUN/Creatinine Ratio 15.2 Glucose 123 H Calcium 9.8 Troponin I High Sens 105 H B-Natriuretic Peptide 09/03/22 17:51 WBC RBC Hgb Hct MCV MCH MCHC RDW Std Deviation RDW Coeff of Candy Plt Count MPV Immature Gran % (Auto) Neut % (Auto) Lymph % (Auto) [place] % (Auto) Eos % (Auto) Baso % (Auto) Absolute Neuts (auto) Absolute Lymphs (auto) Nucleated RBC % D-Dimer Quant (PE/DVT) Sodium Potassium Chloride Carbon Dioxide Anion Gap BUN Creatinine Estim Creat Clear Calc Est GFR (MDRD) Af Amer Est GFR (MDRD) Non-Af BUN/Creatinine Ratio Glucose Calcium Troponin I High Sens B-Natriuretic Peptide 24.4 Radiography Diagnostic Testing: Clinical Impression(s) from Imaging Studies Chest X-Ray 09/03/22 18:00 IMPRESSION: Retrocardiac hiatal hernia. There is no acute cardiopulmonary disease. Electronically Signed: Davion Lopez DO at 18:22 EST Reading Location ID and State: [employer] / [employer] Tel [phone], Service support , Chest CTA 09/03/22 18:42 IMPRESSION: 1. Diffuse bilateral pulmonary emboli, as above. 2. No aortic dissection or aneurysm. 3. No acute pulmonary disease. 4. Hiatal hernia. Electronically Signed: Davion Lopez DO at 20:12 EST Reading Location ID and State: [address] [place] [address] Tel [phone], Service support , ADDENDUM: 09/03/222022 IMPRESSION: 1. Diffuse bilateral pulmonary emboli, as above. 2. No aortic dissection or aneurysm. 3. No acute pulmonary disease. 4. Hiatal hernia. N.B. : The above Results were Read Back by Davion Lopez DO to Franklin Cervantes MD, and understanding confirmed on 09/03/2022 20:17:00 (ET). Electronically Signed: Davion Lopez DO at 20:12 EST Reading Location ID and State: [address] [place] [address] Tel [phone], Service support , 1 view chest x-ray obtained interpreted by myself as no acute disease process and no evidence of infiltrate or pneumothorax. Radiology did note a retrocardiac hiatal hernia. EKG Initial EKG: Attestation: I personally reviewed and interpreted this EKG as follows: Comments: Sinus rhythm with a ventricular rate of 83 bpm with a first-degree AV block Discharge Plan Triage Chief Complaint: Shortness of Breath ED Provider: Franklin Cervantes Dx/Rx/DC Orders Clinical Impression: Pulmonary emboli, Exertional dyspnea, Hypoxemia, Elevated troponin Prescriptions: No Action lisinopril 10 mg tablet 20 mg PO QHS ascorbic acid (vitamin C) 1,000 mg tablet 1 g PO DAILY aspirin 81 mg tablet,delayed release (DR/EC) 81 mg PO QDAY Label Comments: WAS TOLD TO STOP 3 DAYS BEFORE SCOPE loratadine 10 mg capsule 10 mg PO QDAY Qty: 30 6RF ferrous sulfate 325 MG tablet 325 mg PO DAILY Qty: 90 0RF albuterol sulfate 90 mcg/actuation HFA aerosol inhaler 2 puff INHALATION Q4H PRN (Reason: Asthma) Qty: 18 3RF azelastine 0.15 % (205.5 mcg) spray,non-aerosol 1 spray INTRANASAL BID Qty: 30 11RF Rx Instructions: administer into each nostril fluticasone propionate 50 mcg/actuation spray,suspension 1 spray INTRANASAL BID Qty: 16 3RF fluticasone propion-salmeterol [Wixela Inhub] 500-50 mcg/dose blister with device 1 inh INHALATION BID Qty: 60 11RF Primary Care Provider: David Nava Referrals: David Nava MD [Primary Care Provider] - Disposition Disposition: Acute Care Hospital [facility]
[2022-09-03] MEDS: Ipratropium/Albuterol Sulfate 3 ML AMPUL.NEB INHALATION (17:47)
--- NOTE | 2022-09-03 18:00 | RAD_ITS ---
STUDY: X-RAY CHEST REASON FOR EXAM: Male, 82 years old. Dysuria. TECHNIQUE: Single AP portable view of the chest. COMPARISON: Chest, December 02, 2013. CT of the chest, July 31, 2017. FINDINGS: The lungs are clear and expanded. There is no demonstrated pleural abnormality. Normal size heart. Normal mediastinum and aria. Normal visualized pulmonary arteries. There is atherosclerotic calcification of the aortic arch with tortuosity. Normal visualized thoracic spine. Normal visualized ribs, clavicles, and shoulders. Question retrocardiac hiatal hernia. As noted on the prior CT. RAD/Chest 1 View (Portable) IMPRESSION: Retrocardiac hiatal hernia. There is no acute cardiopulmonary disease. Electronically Signed: Davion Lopez DO at 18:22 EST ,
[2022-09-03 18:02] LABS: Absolute Lymphocyte Count 0.77 X10^3/uL (0.83-4.51); Absolute Neutrophil Count 5.9 X10^3/uL (2.0-7.7); Basophil# 0.03 X10^3/uL; Basophil% 0.4 % (0-1); Eosinophil# 0.18 X10^3/uL; Eosinophils% 2.3 % (0-5); Hematocrit 47.1 % (40-54); Hemoglobin 15.2 g/dL (13.0-16.5); Lymphocyte # 0.77 X10^3/ul (0.83-4.51); Lymphocyte % 9.9 % (19-41); Mean Corp Hgb Conc 32.3 g/dL (32-36); Mean Corpuscular Hgb 29.8 pg (27.0-32.0); Mean Corpuscular Volume 92.4 fL (80-94); Mean Platelet Vol. 8.9 fl (6.2-12.0); Monocyte% 11.6 % (0-10); NRBC Flagged by Analyzer 0 % (0-5); Neutrophil # 5.87 X10^3/uL (2.7-7.7); Neutrophil % 75.5 % (47-70); Platelet Count 245 K/mm3 (150-450); RBC Distribution Width CV 13.5 % (11.6-14.6); RBC Distribution Width SD 45.5 fl (35.1-43.9); White Blood Count 7.8 K/mm3 (4.4-11.0)
[2022-09-03 18:18] LABS: Anion Gap 7 (5-15); BUN 20 mg/dL (7-18); BUN/Creat Ratio 15.2 RATIO (10-20); Calcium,Total 9.8 mg/dL (8.5-10.1); Chloride 106 mmol/L (98-107); Creatinine, Serum 1.32 mg/dL (0.70-1.30); EST Glomerular Filtration Rate 55 mL/min (>60); Est Glom Filt Rate - Afr Amer 67 mL/min (>60); Estimated Creatinine Clearance 50.68 ml/min; Glucose 123 mg/dL (74-106); Potassium 4.4 mmol/L (3.5-5.1); Sodium Level 139 mmol/L (136-145); Troponin-I HS 105 pg/mL (3.0-78.0)
[2022-09-03 18:27] LABS: BNP,B-Type NATRIURETIC PEPTIDE 24.4 pg/mL (0-100)
[2022-09-03 18:36] LABS: D-Dimer Quantitative (DVT/PE) 17.13 FEU/ug/m (0.27-0.49)
--- NOTE | 2022-09-03 18:42 | CT_ITS ---
We are attempting to reach an attending provider to discuss findings. An addendum with communication details will be sent when the communication is complete. STUDY: CTA CHEST REASON FOR EXAM: Male, 82 years old. Dyspnea. Elevated d-dimer. RADIATION DOSAGE (If Supplied By Facility): CTDIvol = ( 11.98 ) mGy, DLP = ( 534.61 ) mGycm TECHNIQUE: The examination was performed with the intravenous administration of IV 100mL Isovue-370. Post-processing of the angiographic images was performed, with multiplanar reformation and 3D reconstruction. Individualized dose optimization techniques were used for this CT. COMPARISON: Chest, September 03, 2022. FINDINGS: Normal enhancement of the main pulmonary artery. Thrombus is seen distally in both the main right and left pulmonary arteries extending into peripheral vessels involving the bilateral upper right middle and bilateral lower lobe pulmonary arteries. This is most marked on the right.. Atherosclerotic tortuosity thoracic aorta without aneurysm. There is no demonstrated aortic dissection. Normal heart and pericardium. Moderate coronary artery calcifications. Scattered nonspecific subcentimeter mediastinal lymphadenopathy. Mild right hilar lymphadenopathy. Normal visualized trachea and bronchi. The lungs are hyper expanded, with flattening of the hemidiaphragms. Normal pulmonary parenchyma. Normal pleura. Normal chest wall structures. There are degenerative changes of thoracic spine. Retrocardiac hiatal hernia. There is a cyst dome of the liver. CT/CTA Chest W/WO Contrast IMPRESSION: 1. Diffuse bilateral pulmonary emboli, as above. 2. No aortic dissection or aneurysm. 3. No acute pulmonary disease. 4. Hiatal hernia. Electronically Signed: Davion Lopez DO at 20:12 EST ,
[2022-09-03 20:54] LABS: International Normalized Ratio 1.1; Partial Thromboplast Time 29.8 Seconds (24.1-36.2); Prothrombin Time (Protime)PT. 13.9 SECONDS (11.7-14.9)
--- NOTE | 2022-09-03 21:03 | PCM.HP.STD ---
HPI - General General Date of Admission: 09/03/22 Date of Service: 09/03/22 Chief Complaint: Dyspnea on exertion HPI Narrative CINDY COSTA, is a 82 M with a history of FREDI on CPAP, GERD, hypertension who presented to [facility] 09/03/2022 with worsening shortness of breath on exertion for 1 week with significant increase in the last 2 to 3 days and generalized weakness when he is trying to ambulate distances. Due to the progressive nature he was brought to the ED. In ED O2 was initially 90% on room air, chest x-ray showed retrocardiac hiatal hernia but no acute cardiopulmonary disease. He was given a DuoNeb and D-dimer was 17.13 so CTA obtained which demonstrated diffuse bilateral pulmonary emboli. In the ED he also became hypoxic when moving around into the 80s and presently requiring 3 L to maintain sats between 90 to 92%. Hospitalist consulted for admission. Evaluated patient with at bedside. They endorse that he was in his usual health until this past week when he has had some increased dyspnea on exertion and over the past 2 days it is significantly worsened, slight dry cough with nothing productive. No recent travel no prolonged immobility, does have some slight swelling in right lower extremity but this is reportedly chronic. Denies fever chills. has shingles but no other sick contact and he reports he had a shingles vaccine and has no rashes or symptoms concerning for shingles. Denies any chest pain. Did have COVID-vaccine and booster but also did have COVID a year ago but no recent exposure. Has some chronic problems with urination that been unchanged, no other complaints voiced. COUNTS INCLUDE 234 BEDS AT THE [facility] Medical History (Updated 09/03/22 @ 20:[address] Franklin Cervantes, ) Allergic rhinitis ankle surgery BPH (benign prostatic hyperplasia) Bronchitis Cough Cough Daytime hypersomnia DDD (degenerative disc disease) GERD (gastroesophageal reflux disease) Hyperlipidemia Hypertension Hypogonadism Iron deficiency anemia FREDI (obstructive sleep apnea) Restrictive lung disease Shortness of breath on exertion Syncope and collapse Wheezing Home Medications lisinopril 10 mg tablet 20 mg PO QHS BP 02/27/18 [History Last Taken 09/02/22] ferrous sulfate 325 mg (65 mg iron) tablet 325 mg PO DAILY #90 tabs 03/04/18 [Rx Last Taken Unknown] donepezil 5 mg tablet 5 mg PO QHS . 09/03/22 [History Last Taken 09/02/22] fluticasone 500 mcg-salmeterol 50 mcg/dose blistr powdr for inhalation (Samuelnadyajayden Gonzalesbrian) 1 inh inhalation BID #60 ea 09/03/22 [Rx Last Taken 09/03/22] Allergy/AdvReac Type Severity Reaction Status Date / Time azithromycin Allergy unknown Verified 09/03/22 16:48 ciprofloxacin [From Cipro] Allergy confusion Verified 09/03/22 16:48 Environmental Allergies: Allergy NEEDS Verified 09/03/22 16:48 Uncoded FOLLOW-UP Family History (Reviewed 11/11/20 @ 14:03 by Lissette Flores NEWS WIRE PHOTO OPERATOR, NEWS WIRE PHOTO OPERATOR-C) Brother Heart disease Surgical History (Reviewed 11/11/20 @ 14:03 by Lissette Flores NEWS WIRE PHOTO OPERATOR, NEWS WIRE PHOTO OPERATOR-C) H/O bilateral inguinal hernia repair H/O sinus surgery History of prostate surgery Social History (Reviewed 11/11/20 @ 14:03 by Lissette Flores NEWS WIRE PHOTO OPERATOR, NEWS WIRE PHOTO OPERATOR-C) Smoking Status: Never smoker second hand exposure: No alcohol intake: never substance use type: does not use ROS ROS Narrative General: Denies fever or chills HENT: Denies headache, has some nasal drainage, denies sore throat EYES: Denies changes in vision Resp: Slight dry cough, worsening shortness of breath primarily with exertion Cardiac: Denies chest pain GI: Denies abdominal pain, denies changes in bowel, denies nausea, denies vomiting : Denies changes in urination but does have some chronic problems with holding his urine Extremity: Some mild chronic right ankle swelling compared to left MSK: Generalized weakness when ambulating Neuro: Denies any numbness, denies tingling Heme: Denies any bleeding or bruising Skin: Denies rashes Psychiatric: No complaints voiced Vital Signs Vital Signs Vital Signs: 09/03/22 16:48 09/03/22 17:47 09/03/22 17:48 Temperature 97 F L Temperature Source Temporal Pulse Rate 85 Respiratory Rate 14 Respiratory Effort Short of Breath Respiratory Pattern Tachypnea Blood Pressure 163/72 H Blood Pressure Mean 102 Pulse Ox 90 93 Oxygen Delivery Method Room Air Room Air Nasal Cannula Oxygen Flow Rate (L/min) 2 09/03/22 17:49 09/03/22 18:37 Temperature Temperature Source Pulse Rate 84 84 Respiratory Rate 24 H 24 H Respiratory Effort Respiratory Pattern Tachypnea Blood Pressure 149/74 H Blood Pressure Mean 99 Pulse Ox 92 Oxygen Delivery Method Nasal Cannula Oxygen Flow Rate (L/min) 3 Weight Weight: 115 kg Body Mass Index (BMI) 31.6 Physical Exam Narrative General: Alert, oriented, no apparent distress HEENT: Atraumatic, normocephalic Eyes: Anicteric, normal conjunctiva, extraocular movements grossly intact Neck: Supple Respiratory: Clear to auscultation bilaterally, initially comfortable but with conversation slight increased work of breathing, slight tachypnea Cardiovascular: Regular rate and rhythm GI: Soft, nontender, nondistended Extremities: Trace pitting edema in right ankle compared to left Musculoskeletal: Moving all extremities Neuro: No overt focal neurological deficits Skin: No rashes appreciated Psych: Cooperative Results Lab / Micro Data Result Diagrams: 09/03/22 17:51 09/03/22 17:51 Labs: Laboratory Results - last 24 hr 09/03/22 17:51: WBC 7.8, RBC 5.10, Hgb 15.2, Hct 47.1, MCV 92.4, MCH 29.8, MCHC 32.3, RDW Std Deviation 45.5 H, RDW Coeff of Candy 13.5, Plt Count 245, MPV 8.9, Immature Gran % (Auto) 0.300, Neut % (Auto) 75.5 H, Lymph % (Auto) 9.9 L, [place] % (Auto) 11.6 H, Eos % (Auto) 2.3, Baso % (Auto) 0.4, Absolute Neuts (auto) 5.9, Absolute Lymphs (auto) 0.77 L, Nucleated RBC % 0 09/03/22 17:51: D-Dimer Quant (PE/DVT) 17.13 H* 09/03/22 17:51: Sodium 139, Potassium 4.4, Chloride 106, Carbon Dioxide 26.0, Anion Gap 7, BUN 20 H, Creatinine 1.32 H, Estim Creat Clear Calc 50.68, Est GFR (MDRD) Af Amer 67, Est GFR (MDRD) Non-Af 55 L, BUN/Creatinine Ratio 15.2, Glucose 123 H, Calcium 9.8, Troponin I High Sens 105 H 09/03/22 17:51: B-Natriuretic Peptide 24.4 09/03/22 17:51: PT 13.9, INR 1.1, APTT 29.8 Micro: Microbiology 09/03/22 18:45 Nasal Secretion SARS-CoV-2 & FLU Antigen (Rapid) - Final Radiology Impression Chest X-Ray 09/03/22 18:00 IMPRESSION: Retrocardiac hiatal hernia. There is no acute cardiopulmonary disease. Electronically Signed: Davion Lopez DO at 18:22 EST Reading Location ID and State: [facility] / [place] Tel [phone], Service support , Chest CTA 09/03/22 18:42 IMPRESSION: 1. Diffuse bilateral pulmonary emboli, as above. 2. No aortic dissection or aneurysm. 3. No acute pulmonary disease. 4. Hiatal hernia. Electronically Signed: Davion Lopez DO at 20:12 EST Reading Location ID and State: [facility] / [place] Tel [phone], Service support , ADDENDUM: 09/03/222022 IMPRESSION: 1. Diffuse bilateral pulmonary emboli, as above. 2. No aortic dissection or aneurysm. 3. No acute pulmonary disease. 4. Hiatal hernia. N.B. : The above Results were Read Back by Davion Lopez DO to Franklin Cervantes MD, and understanding confirmed on 09/03/2022 20:17:00 (ET). Electronically Signed: Davion Lopez DO at 20:12 EST Reading Location ID and State: [facility] / [place] Tel [phone], Service support , Assessment & Plan Assessment/Plan (1) Pulmonary emboli: (2) Hypoxemia: (3) Elevated troponin: (4) FREDI (obstructive sleep apnea): PLAN: Plan #Bilateral pulmonary emboli -Worsened dyspnea primarily on exertion over the past week with the past 2 days with no significant change -Denies personal or family history of blood clots, no recent travel or prolonged immobility, reports he did have a colonoscopy with no abnormalities and was told he no longer needed screening, no personal history of cancer -D-dimer 17 in ED and CTA demonstrated the bilateral pulmonary emboli and he also was hypoxic on room air -Hypercoagulable work-up obtained with instructions to draw labs prior to heparin initiation if it would not significantly delay beginning this -Discussed anticoagulation options with ED provider and given that his oxygen saturation was 90s on room air and now is requiring 3 L to maintain 90 to 92% we will start heparin drip in the event he develops any worsened respiratory compromise or hypotension that would require tenecteplase -If stable in the a.m. can likely switch to Eliquis or other DOAC -Likely will need to ambulate to qualify for O2 prior to discharge -We will obtain echo to assess for any heart strain or abnormalities -Also given increased swelling in extremity will obtain duplex to assess for further clot burden if any -Rapid COVID-negative, will obtain PCR -Did have some scattered nonspecific subcentimeter mediastinal lymphadenopathy with mild right hilar lymphadenopathy on CTA, can consider discussing with pulmonology if this requires further work-up or monitoring #Hypoxia secondary to #1 -O2, incentive spirometry -Heparin drip as above -PT consulted -May need ambulated to assess for O2 needs prior to discharge -Low suspicion for infectious process so we will hold off on antibiotics at this time -BNP only 24 and no edema appreciated on imaging #NSTEMI likely type II -EKG with first-degree block but otherwise no significant abnormalities -First troponin minimally elevated and has no chest pain, second troponin pending -Obtaining echo, will hold off on consulting cardiology at this time pending results and clinical progress -CTA did note some moderate coronary artery calcifications, may need to consider outpatient work-up once patient clinically stable -No chest pain at this time an alternate explanation for his shortness of breath #CKD stage III unclear subtype -Appears close to baseline however did receive contrast with CTA, will give some gentle hydration and check BMP in a.m. -We will hold lisinopril #DVT ppx: On hep drip Noemi Manuel MD Time spent in the patient's overall evaluation,decision-making process, review of diagnostic data, adjustment of management, discussion with other providers, nursing nursing and ancillary staff involved in patient's care documentation, 60 minutes Charges/Coding Visit Charges Inpatient E&M: 68747 Init Hosp L2
[2022-09-03] MEDS: Heparin Injection (Vial) 5,000 UNIT/ML VIAL 9500 UNIT IV (21:34)
[2022-09-03] MEDS: HEPARIN/D5w 25,000 UNITS 25,000 UNITS/250 ML IV.SOLN. 16 UNITS CONT INF (21:36)
--- NOTE | 2022-09-03 22:06 | ECHOD_ITS ---
Reason For Study: OTHER Procedure This was a 2D Doppler, Color Flow transthoracic echocardiogram. The study was technically difficult. Exam performed portable in patient room. Left Ventricle Normal LV size. Left ventricular systolic function is normal. The estimated ejection fraction is 70 %. Diastolic function is indeterminate. No regional wall motion abnormalities noted. Right Ventricle Normal RV size. Normal systolic function. Atria Normal left atrium. The right atrium is mildly enlarged. No doppler evidence for ASD. Mitral Valve There is mild mitral annular calcification. Extension of the mitral annular calcification onto the base of the posterior mitral valve leaflet. Mild focal mitral valve calcification of the anterior leaflet. Trivial mitral valve insufficiency. Tricuspid Valve Normal tricuspid valve. Mild to moderate (1-2+) eccentric tricuspid valve insufficiency. Right ventricular systolic pressure estimated to be 87 mmHg. Severe pulmonary hypertension. Aortic Valve Trisinus/trileaflet aortic valve. Mild focal aortic valve calcification. Pulmonic Valve The pulmonic valve is not well visualized. Great Vessels Normal sized aortic root. Pericardium/Pleural No pericardial effusion. MMode/2D Measurements & Calculations LVIDd: 4.3 cm IVSd: 1.9 cm Ao root diam: 3.1 cm LVIDs: 2.8 cm LVPWd: 2.1 cm RVDd: 4.2 cm FS: 36.0 % LAV(MOD-sp4): 62.1 ml LVAd ap4: 24.3 cm2 SV(MOD-sp4): 45.9 ml LVLd ap4: 7.7 cm EDV(MOD-sp4): 62.6 ml EDV(sp4-el): 65.4 ml LVAs ap4: 10.9 cm2 LVLs ap4: 5.9 cm ESV(MOD-sp4): 16.7 ml ESV(sp4-el): 16.8 ml EF(MOD-sp4): 73.3 % EF(sp4-el): 74.2 % SV(sp4-el): 48.6 ml LA A4 area: 24.3 cm2 LA dimension(2D): 3.7 cm RA A4 area: 27.1 cm2 Time Measurements MV dec time: 0.28 sec Doppler Measurements & Calculations MV E max ar: 74.3 cm/sec Lat Peak E' Ar: 9.2 cm/sec Med Peak E' Ar: 8.1 cm/sec MV A max ar: 64.4 cm/sec E/E' lat: 8.0 E/E' med: 9.2 MV E/A: 1.2 MV V2 max: 83.7 cm/sec Ao V2 max: 123.5 cm/sec MV max P.8 mmHg MV dec slope: 272.5 cm/sec2 Ao max P.1 mmHg MV V2 mean: 57.3 cm/sec Ao V2 mean: 86.0 cm/sec MV mean P.5 mmHg Ao mean P.4 mmHg MV V2 VTI: 27.7 cm Ao V2 VTI: 27.4 cm AV (velocity ratio): 0.80 LV V1 max: 107.5 cm/sec TR max ar: 458.6 cm/sec LV V1 max P.6 mmHg TR max P.1 mmHg LV V1 mean P.6 mmHg LV V1 mean: 75.6 cm/sec LV V1 VTI: 22.0 cm ECHO/Echo Complete Interpretation Summary The study was technically difficult. Left ventricular systolic function is normal. The estimated ejection fraction is 70 %. The right atrium is mildly enlarged. There is mild mitral annular calcification. Extension of the mitral annular calcification onto the base of the posterior mi tral valve leaflet. Mild focal mitral valve calcification of the anterior leaflet. Trivial mitral valve insufficiency. Mild to moderate (1-2+) eccentric tricuspid valve insufficiency. Mild focal aortic valve calcification. Right ventricular systolic pressure estimated to be 87 mmHg. Severe pulmonary hypertension. Diastolic function is indeterminate. Ordering Physician: Noemi Manuel Referring Physician: David Nava MD Performed By: Manda Carrero RCS
[2022-09-04] VITALS (13 sets, daily range): BP systolic 150–185; BP diastolic 70–99; PULSE 65–90; RESP 16–20; TEMP 36.4–36.8; O2SAT 84–95
[2022-09-04] MEDS: 0.9% Normal Saline 1,000 ML 75 ML IV (00:30)
[2022-09-04 04:59] LABS: Absolute Lymphocyte Count 1.03 X10^3/uL (0.83-4.51); Absolute Neutrophil Count 5.3 X10^3/uL (2.0-7.7); Basophil# 0.03 X10^3/uL; Basophil% 0.4 % (0-1); Eosinophil# 0.22 X10^3/uL; Hematocrit 43.4 % (40-54); Hemoglobin 14.7 g/dL (13.0-16.5); Lymphocyte # 1.03 X10^3/ul (0.83-4.51); Mean Corp Hgb Conc 33.9 g/dL (32-36); Mean Corpuscular Hgb 30.4 pg (27.0-32.0); Mean Corpuscular Volume 89.7 fL (80-94); Mean Platelet Vol. 8.5 fl (6.2-12.0); Monocyte# 0.78 X10^3/uL; Monocyte% 10.6 % (0-10); NRBC Flagged by Analyzer 0 % (0-5); Neutrophil # 5.29 X10^3/uL (2.7-7.7); Neutrophil % 71.6 % (47-70); Platelet Count 213 K/mm3 (150-450); RBC Distribution Width CV 13.6 % (11.6-14.6); RBC Distribution Width SD 44.3 fl (35.1-43.9); Red Blood Count 4.84 M/mm3 (4.6-6.2); White Blood Count 7.4 K/mm3 (4.4-11.0)
[2022-09-04 05:27] LABS: Partial Thromboplast Time 61.8 Seconds (24.1-36.2)
[2022-09-04 05:34] LABS: ALB/GLOB Ratio 0.9 RATIO (0.9-2.4); AST(SGOT) 12 U/L (15-37); Alanine Aminotransfer ALT/SGPT 16 U/L (16-61); Albumin, Serum 3.6 g/dL (3.2-5.0); Alkaline Phosphatase 60 U/L (45-117); Anion Gap 5 (5-15); BUN 18 mg/dL (7-18); Calcium,Total 9.2 mg/dL (8.5-10.1); Chloride 108 mmol/L (98-107); Creatinine, Serum 1.29 mg/dL (0.70-1.30); EST Glomerular Filtration Rate 57 mL/min (>60); Est Glom Filt Rate - Afr Amer 68 mL/min (>60); Estimated Creatinine Clearance 51.86 ml/min; Glucose 139 mg/dL (74-106); Magnesium 2.4 mg/dL (1.6-2.6); Potassium 4.4 mmol/L (3.5-5.1); Protein, Total 7.6 g/dL (6.4-8.2); Sodium Level 138 mmol/L (136-145); Thyroid Stim Hormone (TSH) 1.89 uIU/mL (0.358-3.74)
--- NOTE | 2022-09-04 05:55 | VDLE_ITS ---
Reason For Study: Pulmonary Embolism RIGHT LEFT GSV is normal. GSV is normal. CFV is compressible, spontaneous, competent CFV is compressible, spontaneous, competent, and demonstrates pulsatile venous flow. and demonstrates pulsatile venous flow. FV is compressible, spontaneous, competent FV is compressible, spontaneous, competent and demonstrates pulsatile venous flow. and demonstrates pulsatile venous flow. POP V is compressible, spontaneous, competent POP V is compressible, spontaneous, competent and demonstrates pulsatile venous flow. and demonstrates pulsatile venous flow. T/P Trunk is compressible. T/P Trunk is compressible. PTV is compressible. Acute deep vein thrombosis is noted in the RT PerV is compressible. left posterior tibial vein. Acute deep vein thrombosis is noted in the LT PerV is compressible. right soleus vein. Procedure This is a venous duplex using B-mode, color flow and spectral Doppler. Exam performed portable in patient room. The exam was diagnostic. A preliminary report was called and/or faxed to Joan [facility] control room operator. VL/Venous Duplex US - Shawn Extrem Interpretation Summary Acute deep vein thrombosis is noted in the right soleus vein. Acute deep vein thrombosis is noted in the left posterior tibial vein. Ordering Physician: Noemi Manuel Referring Physician: David Nava MD Performed By: Tan Paz RVT
[2022-09-04] MEDS: Budesonide Respules 0.5 MG/2 ML AMPUL.NEB. INHALATION ×2 (07:25→19:54)
[2022-09-04] MEDS: Albuterol 2.5 MG/3 ML VIAL.NEB. INHALATION ×3 (07:25→19:54)
--- NOTE | 2022-09-04 08:15 | PN.HOSP_ITS ---
Reason for Visit Reason for Visit: Diagnoses Obstructive sleep apnea (adult) (pediatric) (09/03/22) Other pulmonary embolism without acute cor pulmonale (09/03/22) Hypoxemia (09/03/22) Other specified abnormalities of plasma proteins (09/03/22) Subjective Subjective Denies any lower extremity edema. No chest pain. Short of breath. Objective Data Objective Data Vital Signs: Vital Signs Temp Pulse Resp BP Pulse Ox O2 Del Method O2 Flow Rate 36.5 C L 82 19 H 150/99 H 91 Nasal Cannula 4 09/04/22 02:27 09/04/22 07:06 09/04/22 07:06 09/04/22 02:27 09/04/22 08:05 09/04/22 08:05 09/04/22 08:05 FiO2 35 09/03/22 23:35 Oxygen Flow Rate (L/min) 4 Oxygen Delivery Method Nasal Cannula Weight: 113 kg Body Mass Index (BMI) 31.1 Intake & Output: Intake and Output for Last 24 Hours 09/02/22 09/03/22 09/04/22 23:59 23:59 23:59 Intake Total 1048.53 / 1048.53 Output Total 400 / 400 Balance 648.53 / 648.53 Lab / Micro Data Result Diagrams: 09/04/22 04:48 09/04/22 04:48 Labs: Laboratory Results - last 24 hr 09/03/22 17:51: WBC 7.8, RBC 5.10, Hgb 15.2, Hct 47.1, MCV 92.4, MCH 29.8, MCHC 32.3, RDW Std Deviation 45.5 H, RDW Coeff of Candy 13.5, Plt Count 245, MPV 8.9, Immature Gran % (Auto) 0.300, Neut % (Auto) 75.5 H, Lymph % (Auto) 9.9 L, [place] % (Auto) 11.6 H, Eos % (Auto) 2.3, Baso % (Auto) 0.4, Absolute Neuts (auto) 5.9, Absolute Lymphs (auto) 0.77 L, Nucleated RBC % 0 09/03/22 17:51: D-Dimer Quant (PE/DVT) 17.13 H* 09/03/22 17:51: Sodium 139, Potassium 4.4, Chloride 106, Carbon Dioxide 26.0, Anion Gap 7, BUN 20 H, Creatinine 1.32 H, Estim Creat Clear Calc 50.68, Est GFR (MDRD) Af Amer 67, Est GFR (MDRD) Non-Af 55 L, BUN/Creatinine Ratio 15.2, Glucose 123 H, Calcium 9.8, Troponin I High Sens 105 H 09/03/22 17:51: B-Natriuretic Peptide 24.4 09/03/22 17:51: PT 13.9, INR 1.1, APTT 29.8 09/04/22 04:48: WBC 7.4, RBC 4.84, Hgb 14.7, Hct 43.4, MCV 89.7, MCH 30.4, MCHC 33.9, RDW Std Deviation 44.3 H, RDW Coeff of Candy 13.6, Plt Count 213, MPV 8.5, Immature Gran % (Auto) 0.400, Neut % (Auto) 71.6 H, Lymph % (Auto) 14.0 L, [place] % (Auto) 10.6 H, Eos % (Auto) 3.0, Baso % (Auto) 0.4, Absolute Neuts (auto) 5.3, Absolute Lymphs (auto) 1.03, Nucleated RBC % 0 09/04/22 04:48: Sodium 138, Potassium 4.4, Chloride 108 H, Carbon Dioxide 25.0, Anion Gap 5, BUN 18, Creatinine 1.29, Estim Creat Clear Calc 51.86, Est GFR (MDRD) Af Amer 68, Est GFR (MDRD) Non-Af 57 L, BUN/Creatinine Ratio 14.0, Glucose 139 H, Calcium 9.2, Magnesium 2.4, Total Bilirubin 0.70, AST 12 L, ALT 16, Alkaline Phosphatase 60, Total Protein 7.6, Albumin 3.6, Globulin 4.0, Albumin/Globulin Ratio 0.9, TSH 1.89 09/04/22 04:48: APTT 61.8 H Micro: Microbiology 09/03/22 18:45 Nasal Secretion SARS-CoV-2 & FLU Antigen (Rapid) - Final Radiography Diagnostic Testing: Radiology Impression Chest X-Ray 09/03/22 18:00 IMPRESSION: Retrocardiac hiatal hernia. There is no acute cardiopulmonary disease. Electronically Signed: Davion Lopez DO at 18:22 EST Reading Location ID and State: [facility] / [place] Tel [phone], Service support , Chest CTA 09/03/22 18:42 IMPRESSION: 1. Diffuse bilateral pulmonary emboli, as above. 2. No aortic dissection or aneurysm. 3. No acute pulmonary disease. 4. Hiatal hernia. Electronically Signed: Davion Lopez DO at 20:12 EST Reading Location ID and State: [facility] / [place] Tel [phone], Service support , ADDENDUM: 09/03/222022 IMPRESSION: 1. Diffuse bilateral pulmonary emboli, as above. 2. No aortic dissection or aneurysm. 3. No acute pulmonary disease. 4. Hiatal hernia. N.B. : The above Results were Read Back by Davion Lopez DO to Franklin Cervantes MD, and understanding confirmed on 09/03/2022 20:17:00 (ET). Electronically Signed: Davion Lopez DO at 20:12 EST Reading Location ID and State: [facility] / [place] Tel [phone], Service support , Physical Exam Const alert and no apparent distress Constitutional Narrative: Conversational dyspnea Resp normal respiratory effort, no retractions, no use of accessory muscles and clear to auscultation bilaterally Cardio regular rate, regular rhythm, S1 normal heart sound and S2 normal heart sound GI normal to inspection, nondistended, normoactive bowel sounds, soft to palpation, non-tender and non-distended Psych affect normal Assessment & Plan Assessment/Plan (1) Pulmonary emboli: PLAN: #Bilateral pulmonary emboli -Worsened dyspnea primarily on exertion over the past week with the past 2 days with no significant change -Denies personal or family history of blood clots, no recent travel or prolonged immobility, reports he did have a colonoscopy with no abnormalities and was told he no longer needed screening, no personal history of cancer -D-dimer 17 in ED and CTA demonstrated the bilateral pulmonary emboli and he also was hypoxic on room air -Hypercoagulable work-up obtained with instructions to draw labs prior to heparin initiation if it would not significantly delay beginning this -Discussed anticoagulation options with ED provider and given that his oxygen saturation was 90s on room air and now is requiring 3 L to maintain 90 to 92% we will start heparin drip in the event he develops any worsened respiratory compromise or hypotension that would require tenecteplase -If stable in the a.m. can likely switch to Eliquis or other DOAC -Likely will need to ambulate to qualify for O2 prior to discharge -We will obtain echo to assess for any heart strain or abnormalities -Also given increased swelling in extremity will obtain duplex to assess for further clot burden if any -Rapid COVID-negative (2) Hypoxemia: PLAN: #Hypoxia secondary to #1 -O2, incentive spirometry -Heparin drip as above -PT consulted -May need ambulated to assess for O2 needs prior to discharge -Low suspicion for infectious process so we will hold off on antibiotics at this time -BNP only 24 and no edema appreciated on imaging (3) NSTEMI, initial episode of care: PLAN: #NSTEMI likely type II -EKG with first-degree block but otherwise no significant abnormalities -First troponin minimally elevated and has no chest pain, second troponin pending -Obtaining echo, will hold off on consulting cardiology at this time pending results and clinical progress -CTA did note some moderate coronary artery calcifications, may need to consider outpatient work-up once patient clinically stable -No chest pain at this time an alternate explanation for his shortness of breath Troponins went from 105 down to 47 (4) DVT (deep venous thrombosis): PLAN: Prelim duplex was patient had bilateral DVTs. As patient can be anticoagulated. No indication for IVC filter. PLAN: Plan Chronic conditions: * CKD stage III unclear subtype-Appears close to baseline however did receive contrast with CTA, will give some gentle hydration and check BMP in a.m.-We will hold lisinopril * FREDI #DVT ppx: Not indicated as on hep drip Charges/Coding Visit Charges Inpatient E&M: 28750 Subs Hosp L3
[2022-09-04] MEDS: Ferrous Sulfate 325 MG Tablet PO (09:52)
[2022-09-04] MEDS: Labetalol (Prefilled) 20 MG/4 ML 10 MG IV (10:07)
[2022-09-04] MEDS: 0.9% Saline Lock 10 ML Syringe IV (10:08)
[2022-09-04 10:57] LABS: Partial Thromboplast Time 46.9 Seconds (24.1-36.2)
[2022-09-04 11:29] LABS: Troponin-I HS 47 pg/mL (3.0-78.0)
[2022-09-04] MEDS: Heparin Injection (Vial) 5,000 UNIT/ML VIAL IV (12:12)
[2022-09-04] MEDS: HEPARIN/D5w 25,000 UNITS 25,000 UNITS/250 ML IV.SOLN. 17 UNITS CONT INF ×2 (12:13→14:46)
--- NOTE | 2022-09-04 13:09 | CASEMGMT ---
Patient does not have a Healthcare Power of Wind Technician or Healthcare Living Will. Patient did not express interest in documents. Elsi CAMPOS
[2022-09-04 18:49] LABS: Partial Thromboplast Time 56.1 Seconds (24.1-36.2)
--- NOTE | 2022-09-04 20:38 | CPS ---
Pt has own cpap RT put distilled water in and bled in 5 LPM O2
[2022-09-05] VITALS (9 sets, daily range): BP systolic 147–157; BP diastolic 64–91; PULSE 62–80; RESP 16–28; TEMP 36.4–37.3; O2SAT 96–98
[2022-09-05 00:59] LABS: Partial Thromboplast Time 60.7 Seconds (24.1-36.2)
[2022-09-05] MEDS: HEPARIN/D5w 25,000 UNITS 25,000 UNITS/250 ML IV.SOLN. 17 UNITS CONT INF ×2 (05:52→20:51)
[2022-09-05 06:58] LABS: Partial Thromboplast Time 58.3 Seconds (24.1-36.2)
[2022-09-05] MEDS: Budesonide Respules 0.5 MG/2 ML AMPUL.NEB. INHALATION ×2 (07:23→18:59)
[2022-09-05] MEDS: Albuterol 2.5 MG/3 ML VIAL.NEB. INHALATION ×3 (07:23→18:59)
[2022-09-05] MEDS: Ferrous Sulfate 325 MG Tablet PO (08:48)
--- NOTE | 2022-09-05 08:50 | PN.HOSP_ITS ---
Reason for Visit Reason for Visit: Diagnoses Obstructive sleep apnea (adult) (pediatric) (09/04/22) Non-ST elevation (NSTEMI) myocardial infarction (09/04/22) Other pulmonary embolism without acute cor pulmonale (09/04/22) Acute embolism and thrombosis of unspecified deep veins of unspecified lower extremity (09/04/22) Hypoxemia (09/04/22) Other specified abnormalities of plasma proteins (09/04/22) Subjective Subjective Breathing better, but still on oxygen. Objective Data Objective Data Vital Signs: Vital Signs Temp Pulse Resp BP Pulse Ox O2 Del Method O2 Flow Rate 36.8 C 68 18 156/85 H 98 Nasal Cannula 6 09/05/22 05:06 09/05/22 07:26 09/05/22 07:26 09/05/22 05:06 09/05/22 07:26 09/05/22 07:26 09/05/22 07:26 FiO2 35 09/03/22 23:35 Oxygen Flow Rate (L/min) 6 Oxygen Delivery Method Nasal Cannula Weight: 113 kg Body Mass Index (BMI) 31.1 Intake & Output: Intake and Output for Last 24 Hours 09/03/22 09/04/22 09/05/22 23:59 23:59 23:59 Intake Total 2037.21 / 2037.21 250 / 250 Output Total 1080 / 1080 100 / 100 Balance 957.21 / 957.21 150 / 150 Lab / Micro Data Result Diagrams: 09/04/22 04:48 09/04/22 04:48 Labs: Laboratory Results - last 24 hr 09/04/22 08:18: COVID-19 (NE) Not Detected 09/04/22 10:40: APTT 46.9 H 09/04/22 10:40: Troponin I High Sens 47 09/04/22 18:15: APTT 56.1 H 09/05/22 00:40: APTT 60.7 H 09/05/22 06:12: APTT 58.3 H Micro: Microbiology 09/03/22 18:45 Nasal Secretion SARS-CoV-2 & FLU Antigen (Rapid) - Final Radiography Diagnostic Testing: Radiology Impression Echocardiogram 09/03/22 22:06 Interpretation Summary The study was technically difficult. Left ventricular systolic function is normal. The estimated ejection fraction is 70 %. The right atrium is mildly enlarged. There is mild mitral annular calcification. Extension of the mitral annular calcification onto the base of the posterior mitral valve leaflet. Mild focal mitral valve calcification of the anterior leaflet. Trivial mitral valve insufficiency. Mild to moderate (1-2+) eccentric tricuspid valve insufficiency. Mild focal aortic valve calcification. Right ventricular systolic pressure estimated to be 87 mmHg. Severe pulmonary hypertension. Diastolic function is indeterminate. Ordering Physician: Noemi Manuel Referring Physician: David Nava MD Performed By: Manda Carrero RCS Venous Doppler Study 09/04/22 05:55 Interpretation Summary Acute deep vein thrombosis is noted in the right soleus vein. Acute deep vein thrombosis is noted in the left posterior tibial vein. Ordering Physician: Noemi Manuel Referring Physician: David Nava MD Performed By: Tan Paz Rosa Elena Physical Exam Const alert and no apparent distress HEENT head/scalp atraumatic Resp normal respiratory effort, no retractions, no use of accessory muscles and clear to auscultation bilaterally Cardio regular rate, regular rhythm, S1 normal heart sound and S2 normal heart sound GI normal to inspection, nondistended, normoactive bowel sounds, soft to palpation, non-tender and non-distended Extremity normal to inspection Assessment & Plan Assessment/Plan (1) Pulmonary emboli: PLAN: Bilateral pulmonary emboli -Discussed anticoagulation options with ED provider and given that his oxygen saturation was 90s on room air and now is requiring 3 L to maintain 90 to 92% we will start heparin drip in the event he develops any worsened respiratory compromise or hypotension that would require tenecteplase -If stable in the a.m. can likely switch to Eliquis or other DOAC -Rapid COVID-negative Echo showed EF of 70%. Right ventricular systolic pressure of 87 mmHg severe pulmonary hypertension. (2) Acute respiratory failure with hypoxia: PLAN: Acute hypoxic respiratory failure secondary to PE and pulmonary hypertension -O2, incentive spirometry -Heparin drip as above -PT consulted -May need ambulated to assess for O2 needs prior to discharge -Low suspicion for infectious process so we will hold off on antibiotics at this time -BNP only 24 and no edema appreciated on imaging (3) NSTEMI, initial episode of care: PLAN: #NSTEMI likely type II -EKG with first-degree block but otherwise no significant abnormalities -First troponin minimally elevated and has no chest pain, second troponin pending -Obtaining echo, will hold off on consulting cardiology at this time pending results and clinical progress -CTA did note some moderate coronary artery calcifications, may need to consider outpatient work-up once patient clinically stable -No chest pain at this time an alternate explanation for his shortness of breath Troponins went from 105 down to 47 (4) DVT (deep venous thrombosis): PLAN: Duplex shows acute DVT in the right soleus and in the left posterior tibial veins. As patient can be anticoagulated. No indication for IVC filter. PLAN: Plan Chronic conditions: * CKD stage III unclear subtype-Appears close to baseline however did receive contrast with CTA, will give some gentle hydration and check BMP in a.m.-We will hold lisinopril * FREDI #DVT ppx: Not indicated as on hep drip Discussed with the patient and his family at bedside at length. Discussed that I would like to watch the patient least for another 24 hours to make sure he is continuing to improve given the severity of his PEs and severe pulmonary hypertension. Charges/Coding Visit Charges Inpatient E&M: 35661 Subs Hosp L2
--- NOTE | 2022-09-05 10:29 | CASEMGMT ---
RN?CM?SURGICAL GARMENT ASSEMBLY SUPERVISOR?CM?to room to meet with patient for initial transition planning/care coordination?assessment.?RN?CM?introduced self and role at [facility].? Pt voices understanding and consents to?assessment?at this time.? Pt resting in bed in no distress at this time.? Dtr, Shyanne, @ bedside and pt agreeable to her being present during assessment. Pt is A/O at this time and answers all questions appropriately.?? Care providers, pharmacy, and demographics verified/updated at this time. PCP: Dr Nava Specialists:Elena Flores, DIMITRIOS and Dr Calle-pulmonology, Dr Metzger-GI Preferred Pharmacy: [facility] Insurance: [facility], AARP Prescription Benefit:?Yes Living Will/HPOA:?Pt and dtr think pt has completed both. Dtr states will check on this. LNOK: , [place]. Dtr, Demian. Dtr, Shyanne. Living Arrangements: Lives w/ in 2-story home w/3-4 steps to enter. [employer]. Pt states he does okay w/the stairs. Indep w/ADL's and manages his own medications. does most home mgmt tasks. Transportation:?Pt states drives self and states no transportation concerns at this time.? also drives. DME: ?States has the following DME:?CPAP from [facility]. Pt does not have home O2 or a pulse ox. Pt states is able to afford a pulse ox. Reviewed local DME companies w/pt, should he qualify for Home O2 and made aware [employer] is affiliated w/[facility]. He chooses [employer]. Pt states no need for further DME at this time.? HHC/SNF: No hx of either. Pt denies need for HHC or OP therapy and no needs identified. Pt wishes to return home and states has no concerns with going home at time of discharge.?CM?to follow for home oxygen needs and any further discharge planning/needs.? Pt voices no further concerns/needs at this time.? Advised pt to ask for?CM?if any further questions/concerns/needs arise.? Voices understanding. PLAN:??Home. Follow for possible home O2 @ d/c Follow for anti-coag and provide 30-day savings card, as applicable. Evelyn SMITHN?RN?CM
[2022-09-05 12:18] LABS: Partial Thromboplast Time 55.8 Seconds (24.1-36.2)
--- NOTE | 2022-09-05 14:50 | CHAPLAIN ---
Type of Pastoral Visit _x__ Initial Visit ___ Follow-up Visit ___ On-call Visit ___ General Patient Visit ___ Spiritual Assessment ___ Family Conference ___ Bereavement ___ Rapid Response ___ Code Blue ___ Other (describe below) Pastoral Care Referral From _x__ Patient ___ Family ___ Nurse ___ Physician ___ House Worker General ___ Product Development Manager ___ Other (describe below) Sacrament/Intervention _x__ Active listening ___ Anointing ___ Islam ___ Bereavement ___ Communion __x_ Mary exploration ___ _x__ Life review _x_ Prayer ___ Reconciliation ___ Sacrament of Sick _x__ Supportive presence ___ Wedding ___ Other (describe below) Pastoral Comments patient is very welcoming of visit and spiritual care support; pt admits to worries about his health knowing how old I am too; pt is tearful when talking about his health; pt spouse is in the room and gives verbal support to pt; pt has a strong connection to a adventism and his mary; pt asks for prayer support
[2022-09-06 03:20] VITALS: BP 130/94; PULSE 65; RESP 18; TEMP 36.3; O2SAT 95
[2022-09-06 04:10] VITALS: O2SAT 94
[2022-09-06 06:31] LABS: Absolute Lymphocyte Count 0.79 X10^3/uL (0.83-4.51); Absolute Neutrophil Count 4.2 X10^3/uL (2.0-7.7); Basophil# 0.05 X10^3/uL; Basophil% 0.8 % (0-1); Eosinophil# 0.32 X10^3/uL; Eosinophils% 5.3 % (0-5); Hematocrit 42.5 % (40-54); Lymphocyte # 0.79 X10^3/ul (0.83-4.51); Lymphocyte % 13.2 % (19-41); Mean Corp Hgb Conc 32.9 g/dL (32-36); Mean Corpuscular Hgb 30.4 pg (27.0-32.0); Mean Corpuscular Volume 92.2 fL (80-94); Mean Platelet Vol. 8.5 fl (6.2-12.0); NRBC Flagged by Analyzer 0 % (0-5); Neutrophil % 70.2 % (47-70); Platelet Count 222 K/mm3 (150-450); RBC Distribution Width CV 13.6 % (11.6-14.6); RBC Distribution Width SD 45.6 fl (35.1-43.9); Red Blood Count 4.61 M/mm3 (4.6-6.2)
[2022-09-06 06:49] VITALS: BP 155/85; PULSE 64; RESP 18; TEMP 36.6; O2SAT 95
[2022-09-06 07:05] LABS: Anion Gap 8 (5-15); BUN 24 mg/dL (7-18); BUN/Creat Ratio 19.2 RATIO (10-20); Chloride 106 mmol/L (98-107); Creatinine, Serum 1.25 mg/dL (0.70-1.30); EST Glomerular Filtration Rate 59 mL/min (>60); Est Glom Filt Rate - Afr Amer 71 mL/min (>60); Estimated Creatinine Clearance 53.52 ml/min; Glucose 137 mg/dL (74-106); Potassium 4.1 mmol/L (3.5-5.1); Sodium Level 137 mmol/L (136-145)
[2022-09-06 07:08] LABS: Partial Thromboplast Time 58.4 Seconds (24.1-36.2)
[2022-09-06 07:32] VITALS: PULSE 67; RESP 14; O2SAT 96
[2022-09-06] MEDS: Albuterol 2.5 MG/3 ML VIAL.NEB. INHALATION (07:32)
[2022-09-06] MEDS: Budesonide Respules 0.5 MG/2 ML AMPUL.NEB. INHALATION (07:33)
--- NOTE | 2022-09-06 08:34 | PN.HOSP_ITS ---
Reason for Visit Reason for Visit: Diagnoses Obstructive sleep apnea (adult) (pediatric) (09/04/22) Non-ST elevation (NSTEMI) myocardial infarction (09/04/22) Other pulmonary embolism without acute cor pulmonale (09/04/22) Acute embolism and thrombosis of unspecified deep veins of unspecified lower extremity (09/04/22) Acute respiratory failure with hypoxia (09/04/22) Hypoxemia (09/04/22) Other specified abnormalities of plasma proteins (09/04/22) Subjective Subjective Feeling better. Oxygen has been able to wean down. Patient is breathing well. Objective Data Objective Data Vital Signs: Vital Signs Temp Pulse Resp BP Pulse Ox O2 Del Method O2 Flow Rate 36.6 C 64 18 155/85 H 95 Nasal Cannula 4 09/06/22 06:49 09/06/22 06:49 09/06/22 06:49 09/06/22 06:49 09/06/22 06:49 09/06/22 06:49 09/06/22 06:49 FiO2 35 09/03/22 23:35 Oxygen Flow Rate (L/min) 4 Oxygen Delivery Method Nasal Cannula Weight: 113 kg Body Mass Index (BMI) 31.1 Intake & Output: Intake and Output for Last 24 Hours 09/04/22 09/05/22 09/06/22 23:59 23:59 23:59 Intake Total 2037.21 / 2037.21 1100 / 1100 175.38 / 175.38 Output Total 1080 / 1080 100 / 100 200 / 200 Balance 957.21 / 957.21 1000 / 1000 -24.62 / -24.62 Lab / Micro Data Result Diagrams: 09/06/22 06:17 09/06/22 06:17 Labs: Laboratory Results - last 24 hr 09/05/22 11:48: APTT 55.8 H 09/06/22 06:17: APTT 58.4 H 09/06/22 06:17: WBC 6.0, RBC 4.61, Hgb 14.0, Hct 42.5, MCV 92.2, MCH 30.4, MCHC 32.9, RDW Std Deviation 45.6 H, RDW Coeff of Candy 13.6, Plt Count 222, MPV 8.5, Immature Gran % (Auto) 0.500, Neut % (Auto) 70.2 H, Lymph % (Auto) 13.2 L, [place] % (Auto) 10.0, Eos % (Auto) 5.3 H, Baso % (Auto) 0.8, Absolute Neuts (auto) 4.2, Absolute Lymphs (auto) 0.79 L, Nucleated RBC % 0 09/06/22 06:17: Sodium 137, Potassium 4.1, Chloride 106, Carbon Dioxide 23.0, Anion Gap 8, BUN 24 H, Creatinine 1.25, Estim Creat Clear Calc 53.52, Est GFR (MDRD) Af Amer 71, Est GFR (MDRD) Non-Af 59 L, BUN/Creatinine Ratio 19.2, Glucose 137 H, Calcium 9.0 Micro: Microbiology 09/03/22 18:45 Nasal Secretion SARS-CoV-2 & FLU Antigen (Rapid) - Final Physical Exam Const alert and no apparent distress HEENT head/scalp atraumatic Resp normal respiratory effort, no retractions, no use of accessory muscles and clear to auscultation bilaterally Cardio regular rate, regular rhythm, S1 normal heart sound and S2 normal heart sound GI normal to inspection, nondistended, normoactive bowel sounds, soft to palpation, non-tender and non-distended Assessment & Plan Assessment/Plan (1) Pulmonary emboli: PLAN: Bilateral pulmonary emboli -Discussed anticoagulation options with ED provider and given that his oxygen saturation was 90s on room air and now is requiring 3 L to maintain 90 to 92% we will start heparin drip in the event he develops any worsened respiratory compromise or hypotension that would require tenecteplase -If stable in the a.m. can likely switch to Eliquis or other DOAC -Rapid COVID-negative Echo showed EF of 70%. Right ventricular systolic pressure of 87 mmHg severe pulmonary hypertension. (2) Acute respiratory failure with hypoxia: PLAN: Acute hypoxic respiratory failure secondary to PE and pulmonary hypertension -O2, incentive spirometry -Heparin drip as above -PT consulted -May need ambulated to assess for O2 needs prior to discharge -Low suspicion for infectious process so we will hold off on antibiotics at this time -BNP only 24 and no edema appreciated on imaging Ambulatory pulse ox, patient did well and did not require oxygen upon discharge. (3) NSTEMI, initial episode of care: PLAN: #NSTEMI likely type II -EKG with first-degree block but otherwise no significant abnormalities -First troponin minimally elevated and has no chest pain, second troponin pending -Obtaining echo, will hold off on consulting cardiology at this time pending results and clinical progress -CTA did note some moderate coronary artery calcifications, may need to consider outpatient work-up once patient clinically stable -No chest pain at this time an alternate explanation for his shortness of breath Troponins went from 105 down to 47 (4) DVT (deep venous thrombosis): PLAN: Duplex shows acute DVT in the right soleus and in the left posterior tibial veins. As patient can be anticoagulated. No indication for IVC filter. (5) Pulmonary hypertension: PLAN: Group 4 Discussed with patient, his daughter is a nurse and the . This pulm hypertension this is graded as severe and is likely group 4 due to the PE. Patient does have known sleep apnea but has been compliant with using CPAP. PLAN: Plan Chronic conditions: * CKD stage III unclear subtype-Appears close to baseline however did receive c ontrast with CTA, will give some gentle hydration and check BMP in a.m.-We will hold lisinopril * FREDI #DVT ppx: Not indicated as on hep drip
[2022-09-06 09:56] VITALS: BP 152/62; PULSE 77; RESP 17; TEMP 36.5; O2SAT 96
[2022-09-06] MEDS: Ferrous Sulfate 325 MG Tablet PO (09:59)
[2022-09-06 10:54] VITALS: O2SAT 90; O2SAT 94
--- NOTE | 2022-09-06 11:33 | DCINST_ITS ---
Discharge Instructions Diet Discharge Diet: No restrictions Activity Discharge Activity: Return to Normal Activity (ease back into normal routine. ) Dressing / Incision Call your doctor if you observe: Shortness of breath Follow Up Care Test Results: Test results from this visit will be discussed in further detail at your follow- up appointment, if applicable. Discharge Plan Admission Admit Date/Time: 09/04/22 10:46 Primary Reason for Your Visit: Pulmonary embolism Attending Provider: David Sue Primary Care Provider: David Nava Consulting Providers: Noemi Manuel Discharge Orders/Prescriptions Prescriptions: New Eliquis 5 mg Tablet 10 mg PO BID Qty: 60 0RF Rx Instructions: 2 tabs twice daily for 7 days, then 1 tab twice daily. Continued lisinopril 10 mg tablet 20 mg PO QHS ferrous sulfate 325 MG tablet 325 mg PO DAILY Qty: 90 0RF donepezil 5 mg tablet 5 mg PO QHS Label Comments: TAKE 1 TABLET BY MOUTH ONCE DAILY fluticasone propion-salmeterol [Wixela Inhub] 500-50 mcg/dose blister with device 1 inh INHALATION BID Qty: 60 11RF Referrals / Follow Up: David Nava MD [Primary Care Provider] - Within 2 Weeks Disposition Disposition (needs filled in before D/C Order can be placed): Home, Self Care
--- NOTE | 2022-09-06 11:37 | DS.PCM_ITS ---
Providers Date of Admission: 09/04/22 Primary Care Physician: Dr. David Nava MD Reason For Visit: HYPOXIA, BILATERAL PE Diagnosis Discharge Diagnosis (1) Pulmonary emboli: Status: Acute Code(s): I26.99 - Other pulmonary embolism without acute cor pulmonale Plan: Bilateral pulmonary emboli -Discussed anticoagulation options with ED provider and given that his oxygen saturation was 90s on room air and now is requiring 3 L to maintain 90 to 92% we will start heparin drip in the event he develops any worsened respiratory compromise or hypotension that would require tenecteplase -If stable in the a.m. can likely switch to Eliquis or other DOAC -Rapid COVID-negative Echo showed EF of 70%. Right ventricular systolic pressure of 87 mmHg severe pulmonary hypertension. (2) Acute respiratory failure with hypoxia: Status: Acute Code(s): J96.01 - Acute respiratory failure with hypoxia Plan: Acute hypoxic respiratory failure secondary to PE and pulmonary hypertension -O2, incentive spirometry -Heparin drip as above -PT consulted -May need ambulated to assess for O2 needs prior to discharge -Low suspicion for infectious process so we will hold off on antibiotics at this time -BNP only 24 and no edema appreciated on imaging Ambulatory pulse ox, patient did well and did not require oxygen upon discharge. (3) NSTEMI, initial episode of care: Status: Acute Code(s): I21.4 - Non-ST elevation (NSTEMI) myocardial infarction Plan: #NSTEMI likely type II -EKG with first-degree block but otherwise no significant abnormalities -First troponin minimally elevated and has no chest pain, second troponin pe nding -Obtaining echo, will hold off on consulting cardiology at this time pending results and clinical progress -CTA did note some moderate coronary artery calcifications, may need to consider outpatient work-up once patient clinically stable -No chest pain at this time an alternate explanation for his shortness of breath Troponins went from 105 down to 47 (4) DVT (deep venous thrombosis): Status: Acute Code(s): I82.409 - Acute embolism and thrombosis of unspecified deep veins of unspecified lower extremity Plan: Duplex shows acute DVT in the right soleus and in the left posterior tibial veins. As patient can be anticoagulated. No indication for IVC filter. (5) Pulmonary hypertension: Status: Acute Code(s): I27.20 - Pulmonary hypertension, unspecified Plan: Group 4 Discussed with patient, his daughter is a nurse and the . This pulm hypertension this is graded as severe and is likely group 4 due to the PE. Patient does have known sleep apnea but has been compliant with using CPAP. Plan Chronic conditions: * CKD stage III unclear subtype-Appears close to baseline however did receive contrast with CTA, will give some gentle hydration and check BMP in a.m.-We will hold lisinopril * FREDI Medications at Discharge Home Medications lisinopril 10 mg tablet 20 mg PO QHS BP 02/27/18 ferrous sulfate 325 mg (65 mg iron) tablet 325 mg PO DAILY #90 tabs 03/04/18 donepezil 5 mg tablet 5 mg PO QHS . 09/03/22 fluticasone 500 mcg-salmeterol 50 mcg/dose blistr powdr for inhalation (Wixela Inhub) 1 inh inhalation BID #60 ea 09/03/22 apixaban 5 mg tablet (Eliquis) 10 mg PO BID #60 tabs 09/06/22 Hospital Course Operations None Procedures 2-D Echocardiogram Summary of Care Provided Minutes Spent on Discharge: 32 Weight / BMI Weight Weight: 113 kg Body Mass Index (BMI) 31.1 ABG / Lab / Microbiology Data Result Diagrams: 09/06/22 06:17 09/06/22 06:17 Laboratory: Laboratory Results - last 24 hr 09/05/22 11:48: APTT 55.8 H 09/06/22 06:17: APTT 58.4 H 09/06/22 06:17: WBC 6.0, RBC 4.61, Hgb 14.0, Hct 42.5, MCV 92.2, MCH 30.4, MCHC 32.9, RDW Std Deviation 45.6 H, RDW Coeff of Candy 13.6, Plt Count 222, MPV 8.5, Immature Gran % (Auto) 0.500, Neut % (Auto) 70.2 H, Lymph % (Auto) 13.2 L, [place] % (Auto) 10.0, Eos % (Auto) 5.3 H, Baso % (Auto) 0.8, Absolute Neuts (auto) 4.2, Absolute Lymphs (auto) 0.79 L, Nucleated RBC % 0 09/06/22 06:17: Sodium 137, Potassium 4.1, Chloride 106, Carbon Dioxide 23.0, Anion Gap 8, BUN 24 H, Creatinine 1.25, Estim Creat Clear Calc 53.52, Est GFR (MDRD) Af Amer 71, Est GFR (MDRD) Non-Af 59 L, BUN/Creatinine Ratio 19.2, Glu cose 137 H, Calcium 9.0 Microbiology: Microbiology 09/03/22 17:51 Blood Culture (Wb) - Anticubital Left Blood Culture - Preliminary No growth in 48 hours. 09/03/22 18:45 Nasal Secretion SARS-CoV-2 & FLU Antigen (Rapid) - Final D/C Instructions Discharge Diet: No restrictions Call your doctor if you observe: Shortness of breath Meaningful Use Info Meaningful Use Diagnoses (Choose all that apply): None applicable Discharge Plan Admission Admit Date/Time: 09/04/22 10:46 Primary Reason for Your Visit: Pulmonary embolism Attending Provider: David Sue Primary Care Provider: David Nava Consulting Providers: Noemi Manuel Discharge Orders/Prescriptions Prescriptions: New Eliquis 5 mg Tablet 10 mg PO BID Qty: 60 0RF Rx Instructions: 2 tabs twice daily for 7 days, then 1 tab twice daily. Continued lisinopril 10 mg tablet 20 mg PO QHS ferrous sulfate 325 MG tablet 325 mg PO DAILY Qty: 90 0RF donepezil 5 mg tablet 5 mg PO QHS Label Comments: TAKE 1 TABLET BY MOUTH ONCE DAILY fluticasone propion-salmeterol [Wixela Inhub] 500-50 mcg/dose blister with device 1 inh INHALATION BID Qty: 60 11RF Referrals / Follow Up: David Nava MD [Primary Care Provider] - Within 2 Weeks Disposition Disposition (needs filled in before D/C Order can be placed): Home, Self Care Charges/Coding Visit Charges Inpatient E&M: 19581 Disch Hosp >30min
[2022-09-06] MEDS: APIXABAN 5 MG TABLET 10 MG PO (12:03)
[2022-09-06] MEDS: 0.9% Saline Lock 10 ML Syringe IV (12:03)
[2022-09-10 16:08] LABS: Protein C Antigen 119 % (60-150); Protein C, Functional 130 % (73-180)
[2022-09-10 21:05] LABS: Anti-Cardiolipin Ab, IgG, Qn < 9 GPL U/mL (0-14); Anti-Cardiolipin Ab, IgM, Qn 22 MPL U/mL (0-12); Anti-Thrombin 3 AG, Immunol 98 % (72-124); Antithrombin 3 Function 122 % (75-135); Beta-2-Glycoprotein I IgA <9 (0-25); Beta-2-Glycoprotein I IgG <9 (0-20); Beta-2-Glycoprotein I IgM <9 (0-32)
== END 2022-09-06 13:18 | disposition home or self-care (01) | DRG 175 ==
LOC: ED 20:28 → PCU 21:05
PROVIDERS: Admitting Provider Internal Medicine; Emergency Provider Emergency Medicine; PCP Family Medicine
DX: I26.99 Other pulmonary embolism without acute cor pulmonale (principal); J96.01 Acute respiratory failure with hypoxia; I21.A1 Myocardial infarction type 2; I27.20 Pulmonary hypertension, unspecified; N18.30 Chronic kidney disease, stage 3 unspecified; I82.461 Acute embolism and thrombosis of right calf muscular vein; I44.0 Atrioventricular block, first degree; E78.5 Hyperlipidemia, unspecified; I10 Essential (primary) hypertension; G47.33 Obstructive sleep apnea (adult) (pediatric); K44.9 Diaphragmatic hernia without obstruction or gangrene; I25.10 Atherosclerotic heart disease of native coronary artery without angina pectoris; I12.9 Hypertensive chronic kidney disease with stage 1 through stage 4 chronic kidney disease, or unspecified chronic kidney disease; R59.1 Generalized enlarged lymph nodes; R53.1 Weakness; R77.8 Other specified abnormalities of plasma proteins
CPT/HCPCS: 36415; 71045; 71275; 80048; 80053; 81240; 81241; 83735; 83880; 84443; 84484; 85025; 85300; 85301; 85302; 85303; 85379; 85610; 85730; 86146; 86147; 87040; 87428; 87635; 93005; 93306; 93970; 94640; 94660; 94668; 94762; 97162; 97530; 97802; 99252; 99285; J7030; Q9957; Q9967; A4216; G0463; U0003; U0005

== ENCOUNTER → 2022-09-20 | Outpatient (CLI) | payer MEDICARE, OTHER, SELFPAY ==
[2022-09-20 17:36] LABS: Absolute Lymphocyte Count 1.01 X10^3/uL (0.83-4.51); Absolute Neutrophil Count 4.9 X10^3/uL (2.0-7.7); Basophil# 0.04 X10^3/uL; Basophil% 0.6 % (0-1); Eosinophil# 0.28 X10^3/uL; Hematocrit 43.7 % (40-54); Hemoglobin 14.6 g/dL (13.0-16.5); Lymphocyte # 1.01 X10^3/ul (0.83-4.51); Lymphocyte % 14.3 % (19-41); Mean Corp Hgb Conc 33.4 g/dL (32-36); Mean Corpuscular Volume 89.9 fL (80-94); Mean Platelet Vol. 8.6 fl (6.2-12.0); Monocyte% 11.4 % (0-10); NRBC Flagged by Analyzer 0 % (0-5); Neutrophil # 4.88 X10^3/uL (2.7-7.7); Neutrophil % 69.3 % (47-70); Platelet Count 364 K/mm3 (150-450); RBC Distribution Width CV 13.1 % (11.6-14.6); RBC Distribution Width SD 42.6 fl (35.1-43.9); Red Blood Count 4.86 M/mm3 (4.6-6.2)
[2022-09-20 18:28] LABS: ALB/GLOB Ratio 0.9 RATIO (0.9-2.4); AST(SGOT) 12 U/L (15-37); Alanine Aminotransfer ALT/SGPT 19 U/L (16-61); Albumin, Serum 3.7 g/dL (3.2-5.0); Alkaline Phosphatase 51 U/L (45-117); Anion Gap 9 (5-15); BUN 22 mg/dL (7-18); BUN/Creat Ratio 18.5 RATIO (10-20); Calcium,Total 9.2 mg/dL (8.5-10.1); Chloride 106 mmol/L (98-107); Creatinine, Serum 1.19 mg/dL (0.70-1.30); EST Glomerular Filtration Rate 62 mL/min (>60); Est Glom Filt Rate - Afr Amer 75 mL/min (>60); Globulin 3.9 g/dL (2.2-4.2); Glucose 120 mg/dL (74-106); Potassium 4.7 mmol/L (3.5-5.1); Protein, Total 7.6 g/dL (6.4-8.2); Sodium Level 138 mmol/L (136-145)
[2022-09-24 16:09] LABS: PROEL- A/G Ratio 1.2 (0.7-1.7); PROEL- Albumin 3.8 g/dL (2.9-4.4); PROEL- Alpha-1 Globulin 0.3 g/dL (0.0-0.4); PROEL- Alpha-2 Globulin 0.8 g/dL (0.4-1.0); PROEL- Beta Globulin 1.1 g/dL (0.7-1.3); PROEL- Gamma Globulin 1.2 g/dL (0.4-1.8); PROEL- Globulin, Total 3.3 g/dL (2.2-3.9); PROEL- TOTAL PROTEIN 7.1 g/dL (6.0-8.5)
== END | disposition home or self-care (01) ==
LOC: MFPLAB 15:40
PROVIDERS: PCP Family Medicine; Referring Provider Family Medicine; Visit Provider Family Medicine
DX: N40.0 Benign prostatic hyperplasia without lower urinary tract symptoms (principal); I26.99 Other pulmonary embolism without acute cor pulmonale
CPT/HCPCS: 36415; 80053; 84153; 84165; 85025

== ENCOUNTER → 2022-10-24 | Outpatient (CLI) | payer MEDICARE, SELFPAY ==
--- NOTE | 2022-10-24 09:39 | VDLE_ITS ---
Reason For Study: RLE SWELLING RIGHT LEFT GSV is normal. CFV is compressible, spontaneous, phasic, CFV is compressible, spontaneous, phasic, competent, and demonstrates normal competent and demonstrates normal augmentation. augmentation. FV is compressible, spontaneous, phasic, competent and demonstrates normal augmentation. POP V is compressible, spontaneous, phasic, competent and demonstrates normal augmentation. T/P Trunk is compressible. PTV is compressible. RT PerV is compressible. Procedure This is a venous duplex using B-mode, color flow and spectral Doppler. Exam performed in department. The exam was diagnostic. A preliminary report was called and/or faxed to Dr. Nava @ [phone] @ 10 am. VL/Venous Duplex US, Unilateral Interpretation Summary There is no evidence of right lower extremity deep vein thrombosis. Right great saphenous vein appears patent and compressible segmentally. Normal flow patterns left common f emoral vein Ordering Physician: David Nava Referring Physician: David Nava Performed By: Alisia Rodriguez, DANIA, RVT
== END | disposition home or self-care (01) ==
LOC: CVS 09:37
PROVIDERS: PCP Family Medicine; Referring Provider Family Medicine; Visit Provider Family Medicine
DX: M79.89 Other specified soft tissue disorders (principal)
CPT/HCPCS: 93971

== ENCOUNTER → 2022-12-17 | Outpatient (CLI) | payer MEDICARE, SELFPAY ==
[2022-12-17 10:53] LABS: Absolute Lymphocyte Count 0.86 X10^3/uL (0.83-4.51); Absolute Neutrophil Count 3.9 X10^3/uL (2.0-7.7); Basophil# 0.02 X10^3/uL; Basophil% 0.4 % (0-1); Eosinophils% 1.9 % (0-5); Hematocrit 43.9 % (40-54); Hemoglobin 14.7 g/dL (13.0-16.5); Lymphocyte # 0.86 X10^3/ul (0.83-4.51); Mean Corp Hgb Conc 33.5 g/dL (32-36); Mean Corpuscular Hgb 30.1 pg (27.0-32.0); Monocyte# 0.47 X10^3/uL; Monocyte% 8.8 % (0-10); NRBC Flagged by Analyzer 0 % (0-5); Neutrophil % 72.7 % (47-70); Platelet Count 316 K/mm3 (150-450); RBC Distribution Width CV 13.1 % (11.6-14.6); RBC Distribution Width SD 42.8 fl (35.1-43.9); Red Blood Count 4.88 M/mm3 (4.6-6.2); White Blood Count 5.4 K/mm3 (4.4-11.0)
[2022-12-17 10:59] LABS: Prothrombin Time (Protime)PT. 13.4 SECONDS (11.7-14.9)
[2022-12-17 11:00] LABS: Partial Thromboplast Time 28.3 Seconds (24.1-36.2)
[2022-12-17 11:25] LABS: AST(SGOT) 13 U/L (15-37); Alanine Aminotransfer ALT/SGPT 20 U/L (16-61); Albumin, Serum 3.7 g/dL (3.2-5.0); Alkaline Phosphatase 50 U/L (45-117); Anion Gap 4 (5-15); BUN 18 mg/dL (7-18); Chloride 107 mmol/L (98-107); Creatinine, Serum 1.06 mg/dL (0.70-1.30); EST Glomerular Filtration Rate 71 mL/min (>60); Est Glom Filt Rate - Afr Amer 86 mL/min (>60); Globulin 3.8 g/dL (2.2-4.2); Glucose 128 mg/dL (74-106); Protein, Total 7.5 g/dL (6.4-8.2); Sodium Level 135 mmol/L (136-145)
== END | disposition home or self-care (01) ==
LOC: MTLAB 09:22
PROVIDERS: PCP Family Medicine; Referring Provider Family Medicine; Visit Provider Family Medicine
DX: I82.409 Acute embolism and thrombosis of unspecified deep veins of unspecified lower extremity (principal)
CPT/HCPCS: 36415; 80053; 85025; 85610; 85730

== ENCOUNTER → 2023-06-17 | Outpatient (CLI) | payer MEDICARE, SELFPAY ==
[2023-06-17 12:32] LABS: Absolute Lymphocyte Count 0.89 X10^3/uL (0.83-4.51); Absolute Neutrophil Count 4.6 X10^3/uL (2.0-7.7); Basophil# 0.04 X10^3/uL; Basophil% 0.6 % (0-1); Eosinophils% 1.6 % (0-5); Hematocrit 44.7 % (40-54); Hemoglobin 14.6 g/dL (13.0-16.5); Lymphocyte # 0.89 X10^3/ul (0.83-4.51); Lymphocyte % 14.1 % (19-41); Mean Corp Hgb Conc 32.7 g/dL (32-36); Mean Platelet Vol. 8.7 fl (6.2-12.0); Monocyte# 0.65 X10^3/uL; Monocyte% 10.3 % (0-10); NRBC Flagged by Analyzer 0 % (0-5); Neutrophil % 72.9 % (47-70); Platelet Count 301 K/mm3 (150-450); RBC Distribution Width SD 43.3 fl (35.1-43.9); Red Blood Count 4.86 M/mm3 (4.6-6.2); White Blood Count 6.3 K/mm3 (4.4-11.0)
[2023-06-17 13:01] LABS: AST(SGOT) 12 U/L (15-37); Alanine Aminotransfer ALT/SGPT 22 U/L (16-61); Albumin, Serum 3.7 g/dL (3.2-5.0); Alkaline Phosphatase 48 U/L (45-117); Anion Gap 5 (5-15); BUN 20 mg/dL (7-18); BUN/Creat Ratio 17.7 RATIO (10-20); Calcium,Total 8.9 mg/dL (8.5-10.1); Chloride 106 mmol/L (98-107); Creatinine, Serum 1.13 mg/dL (0.70-1.30); EST Glomerular Filtration Rate 66 mL/min (>60); Est Glom Filt Rate - Afr Amer 80 mL/min (>60); Globulin 3.7 g/dL (2.2-4.2); Glucose 131 mg/dL (74-106); Potassium 4.2 mmol/L (3.5-5.1); Protein, Total 7.4 g/dL (6.4-8.2); Sodium Level 138 mmol/L (136-145)
[2023-06-17 16:22] LABS: Microalbumin,Random Urine < 5.0 mg/L (NO RANGE EST.)
== END | disposition home or self-care (01) ==
LOC: MFPLAB 11:13
PROVIDERS: PCP Family Medicine; Visit Provider Family Medicine
DX: I10 Essential (primary) hypertension (principal); Z86.718 Personal history of other venous thrombosis and embolism
CPT/HCPCS: 36415; 80053; 82043; 82570; 85025

== ENCOUNTER → 2023-12-30 | Outpatient (CLI) | payer MEDICARE, SELFPAY ==
[2023-12-30 12:28] LABS: Mucous, Urine 0 SEEN /hpf (<or=2+)
[2023-12-30 15:23] LABS: Color, Urine Yellow (Yellow); Glucose, Dipstick 100 mg/dl (Normal); Ketone-Dipstick Negative (Negative); Leukocyte Esterase-Dipstick Negative /ul (Negative); Nitrite-Dipstick Negative (Negative); Occult Blood-Urine Negative /ul (Negative); Protein-Dipstick Negative (Negative); Urine Bilirubin Dipstick Negative (Negative); Urine Clarity Clear (Clear); Urine Urobilinogen Normal (Normal)
[2023-12-30 15:33] LABS: Squamous Epithelial Cells - UA 0-5 SEEN /hpf (0-5)
[2023-12-30 15:34] LABS: Bacteria 1+ /hpf (None Seen)
[2023-12-30 15:35] LABS: Red Blood Cells-Urine 0-5 SEEN /hpf (0-5); White Blood Cells 0-5 SEEN /hpf (0-5)
[2023-12-30 19:43] LABS: AST(SGOT) 13 U/L (15-37); Alanine Aminotransfer ALT/SGPT 23 U/L (16-61); Albumin, Serum 3.7 g/dL (3.2-5.0); Alkaline Phosphatase 45 U/L (45-117); Anion Gap 6 (5-15); BUN 23 mg/dL (7-18); BUN/Creat Ratio 18.1 RATIO (10-20); Calcium,Total 9.2 mg/dL (8.5-10.1); Chloride 105 mmol/L (98-107); Creatinine, Serum 1.27 mg/dL (0.70-1.30); EST Glomerular Filtration Rate 57 mL/min (>60); Est Glom Filt Rate - Afr Amer 69 mL/min (>60); Globulin 3.8 g/dL (2.2-4.2); Glucose 186 mg/dL (74-106); PSA,Total - Annual Screen 1.64 ng/mL (0.00-4.00); Potassium 4.7 mmol/L (3.5-5.1); Protein, Total 7.5 g/dL (6.4-8.2); Sodium Level 137 mmol/L (136-145)
[2023-12-30 22:26] LABS: Microalbumin,Random Urine < 5.0 mg/L (NO RANGE EST.)
== END | disposition home or self-care (01) ==
PROVIDERS: PCP Family Medicine; Visit Provider Family Medicine
DX: R32 Unspecified urinary incontinence (principal); I10 Essential (primary) hypertension
CPT/HCPCS: 80053; 81001; 82043; 82570; 84153; 87077; 87086; 87088; 87186; G0103

== ENCOUNTER → 2024-07-27 | Outpatient (CLI) | payer MEDICARE, SELFPAY ==
--- NOTE | 2024-07-27 17:13 | RAD_ITS ---
INDICATION: BRONCHITIS EXAMINATION/TECHNIQUE: X-RAY - XR Chest 2 Views COMPARISON: Prior study dated: 09/03/2022. FINDINGS: LINES/DEVICES: None. LUNGS: No consolidation. No pneumothorax. MEDIASTINUM: Aorta is atherosclerotic. Hiatal hernia. CARDIAC SILHOUETTE: Not enlarged. BONES AND SOFT TISSUES: No acute abnormalities. RAD/Chest PA and Lateral IMPRESSION: No evidence of active intrathoracic disease. Hiatal hernia. Electronically Signed: Riri Irving MD at 8:17 EST ,
== END | disposition home or self-care (01) ==
LOC: MTRAD 17:11
PROVIDERS: PCP Family Medicine; Referring Provider Family Medicine; Visit Provider Family Medicine
DX: J40 Bronchitis, not specified as acute or chronic (principal)
CPT/HCPCS: 71046

== ENCOUNTER 2024-07-28 14:59 | Emergency (ER) | payer MEDICARE, SELFPAY ==
[2024-07-28 15:00] VITALS: BP 183/82; PULSE 86; RESP 16; TEMP 36.2; O2SAT 97; BMI 31.4
--- NOTE | 2024-07-28 15:35 | CT_ITS ---
STUDY: CTA CHEST REASON FOR EXAM: Male, 84 years old. elevated dimer, hx of PE RADIATION DOSAGE (If Supplied By Facility): CTDIvol = ( 14.76 ) mGy, DLP = ( 528.26 ) mGycm TECHNIQUE: The examination was performed with the intravenous administration of IV 100mL Isovue-370. Post-processing of the angiographic images was performed, with multiplanar reformation and 3D reconstruction. Individualized dose optimization techniques were used for this CT. COMPARISON: None. FINDINGS: Normal enhancement of the main pulmonary artery and right and left pulmonary arteries. Normal enhancement of the bilateral peripheral pulmonary arteries. There is no demonstrated pulmonary embolism. Atherosclerotic change of the aorta without evidence for aneurysm. There is no demonstrated aortic dissection. Heart size is normal. There is mild coronary artery calcification Small subcentimeter nodes likely benign. . There is a solid nodule in the left lobe of thyroid. Normal visualized trachea and bronchi. The lungs are well expanded. Minor atelectasis within the dependent portion of both lungs more pronounced in the right. There is no focal infiltration or pulmonary nodules. Normal pleura. Normal chest wall structures. Dorsal spine demonstrates degenerative change. There is a relatively large hiatal hernia containing both stomach as well as abdominal fat Small cyst noted within the liver. CT/CTA Chest W/WO Contrast IMPRESSION: Minor atelectasis within the dependent portion of both lungs more pronounced on the right.. ASHD without evidence for aortic aneurysm. No acute cardiopulmonary pathology. No evidence for pulmonary embolus Electronically Signed: Yury Henry MD at 16:28 EST Reading Location ID and State: [facility] / [place] Tel , Service support ,
--- NOTE | 2024-07-28 15:52 | EDS_ITS ---
HPI History of Present Illness Chief Complaint: Abn Labs Narrative Narrative: Patient is a 84-year-old male past medical history of asthma, PE, DVT, FREDI, hypertension, hyperlipidemia who presented to the emergency department after having blood work obtained in the outpatient setting and it was abnormal. His doctor called him and advised him to come to the emergency department to have this followed up on. Patient states that he was seen by his physician yesterday as he had not been feeling well for the past couple days he states that yesterday he was given some medications that helped him feel much improved by this morning. He states that he was given a steroid he was using inhaler and does not recall the other medication name. Patient states that he is unsure why he had a PE and DVT in the past he states that he is not on any blood thinning medications currently. [facility] Medical History Pulmonary hypertension DVT (deep venous thrombosis) Pulmonary emboli Asthma Iron deficiency anemia FREDI (obstructive sleep apnea) Daytime hypersomnia Allergic rhinitis ankle surgery DDD (degenerative disc disease) Syncope and collapse Hypogonadism BPH (benign prostatic hyperplasia) Hypertension Hyperlipidemia Shortness of breath on exertion Cough Restrictive lung disease GERD (gastroesophageal reflux disease) Cough Bronchitis Wheezing Home Medications ?Medication ?Instructions ?Recorded ?Last Taken ?Type ferrous sulfate 325 mg (65 mg 325 mg PO DAILY #90 tabs 03/04/18 Unknown Rx iron) tablet donepezil 5 mg tablet 5 mg PO QHS . 09/03/22 09/02/22 History fluticasone propionate 50 2 spray intranasal DAILY #16 grams 01/14/23 Unknown Rx mcg/actuation nasal spray,suspension ramipril 2.5 mg capsule 2.5 mg PO DAILY 01/14/23 Unknown History fluticasone 500 mcg-salmeterol 50 1 inh inhalation BID #60 ea 09/16/23 Unknown Rx mcg/dose blistr powdr for inhalation (Wixela Inhub) albuterol sulfate 90 mcg/actuation 2 puff inhalation Q4H PRN 10/16/23 Unknown Rx aerosol inhaler shortness of breath or wheezing #8.5 grams Allergy/AdvReac Type Severity Reaction Status Date / Time azithromycin Allergy unknown Verified 07/28/24 15:00 ciprofloxacin (From Cipro) Allergy confusion Verified 07/28/24 15:00 Environmental Allergies: Allergy NEEDS Verified 07/28/24 15:00 Uncoded FOLLOW-UP Family History Brother Heart disease Surgical History H/O bilateral inguinal hernia repair History of prostate surgery H/O sinus surgery Social History household members: spouse number of children: 4 current occupational status: retired Smoking Status: Never smoker second hand exposure: No alcohol intake: never substance use type: does not use ROS ROS ED ROS Narrative Constitutional: Denies any fevers, chills, headaches, lightness, dizziness Eyes: Denies change in vision double vision blurry vision Cardiovascular: Denies chest pain or palpitations Respiratory: Complains of cough and shortness of breath as well as wheezing noted above Abdomen: Denies abdominal pain nausea vomit diarrhea : Denies any urinary symptoms Neurological: Denies any numbness, weakness, tingling Musculoskeletal: Denies back pain Skin: Denies any rashes or lesions EXAM Physical Exam Narrative Exam Narrative: General: Patient lying in bed rest comfortably did not appear to be acute distress Head: Atraumatic, normocephalic Eyes: PERRL bilaterally, EOMI bilaterally, no conjunctival injection noted Neck: Soft, supple, trachea midline Cardiovascular: Regular rate and rhythm no murmurs gallops rubs noted Respiratory: Clear to auscultation bilaterally no rales rhonchi or wheezes noted Abdomen: Soft, nondistended, nontender to palpation, bowel sounds present x 4 Extremities: +5/5 strength noted in the bilateral upper and lower extremities, radial pulses +2/4 in the bilateral per extremities, no pedal edema no exam Neurological: Patient following commands knew that he was at [facility] year is 2023 Skin: Warm, dry, intact Const Vital Signs: 07/28/24 15:00 07/28/24 15:50 07/28/24 16:18 Temperature 97.2 F L Temperature Source Temporal Pulse Rate 86 90 Respiratory Rate 16 16 Respiratory Effort Normal Non-Labored Respiratory Pattern Normal Blood Pressure 183/82 H Blood Pressure Mean 115 Pulse Ox 97 Oxygen Delivery Method Room Air MDM MDM MDM Narrative Medical decision making narrative: Patient is a 84-year-old male who presented to the emergency department the chief complaint of abnormal blood work obtained in the outpatient setting. On the differential diagnose includes but not limited to pneumonia, upper respiratory infection secondary viral etiology, PE. Once workup is obtained reviewed he will be reevaluated. Patient be given 3 DuoNebs as he is wheezing here in the emergency department he is already on a steroid taper pack therefore we will hold off any further steroids currently. Patient''s blood work reviewed from earlier today which showed a normal white blood cell count of 8.2, hemoglobin stable 14.4, plate count was noted be 323. Patient's ESR was noted to be elevated 29, sodium was 132, potassium of 4.1, creatinine was normal at 1.07. Patient's AST and ALT were 12 and 24 respectively with a normal total bilirubin 0.50. Patient's proBNP normal at 54.8. Patient's D-dimer was elevated 1.04 and with age-adjusted VTE is still likely therefore CTA of the chest will be added on. Patient CTA of his chest was reviewed showed minor atelectasis within the dependent portion of both lungs more pronounced on the right. No acute cardiopulmonary pathology no evidence for pulmonary embolism. Reevaluation the patient is feeling better would like to go home at this point in time. Did discuss the results with patient's daughter and at bedside. They are encouraged to continue the medications that his primary care physician prescribed him and follow-up with him in the outpatient setting. They are encouraged to return with worsening symptoms or concerns. They are agreeable this plan all question concerns answered he is discharged home in stable condition. Radiography Diagnostic Testing: Clinical Impression(s) from Imaging Studies Chest CTA 07/28/24 15:35 IMPRESSION: Minor atelectasis within the dependent portion of both lungs more pronounced on the right.. ASHD without evidence for aortic aneurysm. No acute cardiopulmonary pathology. No evidence for pulmonary embolus Electronically Signed: Yury Henry MD at 16:28 EST , Discharge Plan Triage Chief Complaint: Abn Labs ED Provider: Jaya Quick Dx/Rx/DC Orders Clinical Impression: Cough, History of asthma, Abnormal laboratory test Prescriptions: No Action ramipril 2.5 mg capsule 2.5 mg PO DAILY Patient Comments: TAKE 1 CAPSULE BY MOUTH ONCE DAILY fluticasone propionate 50 mcg/actuation spray,suspension 2 spray intranasal DAILY Qty: 16 3RF albuterol sulfate 90 mcg/actuation HFA aerosol inhaler 2 puff inhalation Q4H PRN (Reason: shortness of breath or wheezing) Qty: 8.5 6RF Rx Instructions: administer with spacer ferrous sulfate 325 MG tablet 325 mg PO DAILY Qty: 90 0RF donepezil 5 mg tablet 5 mg PO QHS Patient Comments: TAKE 1 TABLET BY MOUTH ONCE DAILY fluticasone propion-salmeterol [Wixela Inhub] 500-50 mcg/dose blister with device 1 inh INHALATION BID Qty: 60 11RF Primary Care Provider: David Nava Referrals: David Nava MD [Primary Care Provider] - Activity Restrictions/Additional Instructions: Your CTA of your chest did not show any evidence of blood clots in your lungs. Your blood work was overall unremarkable that you had obtained in the outpatient setting. Take the medications that you are prescribed until completion. Return with worsening symptoms or concerns otherwise follow-up with your family physician outpatient setting. Print Language: Kiswahili Disposition Disposition: Home, Self Care
[2024-07-28] MEDS: Ipratropium/Albuterol Sulfate 3 ML AMPUL.NEB INHALATION ×3 (16:11)
[2024-07-28 16:18] VITALS: PULSE 90; RESP 16
== END 2024-07-28 16:57 | disposition home or self-care (01) ==
PROVIDERS: Emergency Provider Emergency Medicine; PCP Family Medicine; Visit Provider Emergency Medicine
DX: R05.9 Cough, unspecified (principal); R79.9 Abnormal finding of blood chemistry, unspecified; R06.02 Shortness of breath; I10 Essential (primary) hypertension; E78.5 Hyperlipidemia, unspecified; G47.33 Obstructive sleep apnea (adult) (pediatric); Z86.718 Personal history of other venous thrombosis and embolism; Z86.711 Personal history of pulmonary embolism
CPT/HCPCS: 71275; 94640; 99282; Q9967; A4216

== ENCOUNTER → 2024-07-28 | Outpatient (CLI) | payer MEDICARE, SELFPAY ==
[2024-07-28 12:34] LABS: Absolute Lymphocyte Count 0.61 X10^3/uL (0.83-4.51); Basophil# 0.02 X10^3/uL; Basophil% 0.2 % (0-1); Eosinophil# 0.01 X10^3/uL; Eosinophils% 0.1 % (0-5); Hematocrit 41.8 % (40-54); Hemoglobin 14.4 g/dL (13.0-16.5); Lymphocyte # 0.61 X10^3/ul (0.83-4.51); Lymphocyte % 7.5 % (19-41); Mean Corp Hgb Conc 34.4 g/dL (32-36); Mean Corpuscular Hgb 30.8 pg (27.0-32.0); Mean Corpuscular Volume 89.3 fL (80-94); Mean Platelet Vol. 8.7 fl (6.2-12.0); Monocyte# 0.51 X10^3/uL; Monocyte% 6.3 % (0-10); NRBC Flagged by Analyzer 0 % (0-5); Neutrophil # 6.97 X10^3/uL (2.7-7.7); Neutrophil % 85.4 % (47-70); Platelet Count 323 K/mm3 (150-450); RBC Distribution Width CV 12.8 % (11.6-14.6); RBC Distribution Width SD 41.8 fl (35.1-43.9); Red Blood Count 4.68 M/mm3 (4.6-6.2); White Blood Count 8.2 K/mm3 (4.4-11.0)
[2024-07-28 12:39] LABS: Erythrocyte Sedimentation Rate 29 mm/hr (0-20)
[2024-07-28 12:48] LABS: BNP,B-Type NATRIURETIC PEPTIDE 54.8 pg/mL (0-100)
[2024-07-28 13:01] LABS: AST(SGOT) 12 U/L (15-37); Alanine Aminotransfer ALT/SGPT 24 U/L (16-61); Albumin, Serum 3.8 g/dL (3.2-5.0); Alkaline Phosphatase 64 U/L (45-117); Anion Gap 7 (5-15); BUN 20 mg/dL (7-18); BUN/Creat Ratio 18.7 RATIO (10-20); CRP 3.14 mg/L (0.0-3.0); Calcium,Total 9.3 mg/dL (8.5-10.1); Chloride 102 mmol/L (98-107); Creatinine, Serum 1.07 mg/dL (0.70-1.30); EST Glomerular Filtration Rate 70 mL/min (>60); Est Glom Filt Rate - Afr Amer 84 mL/min (>60); Glucose 244 mg/dL (74-106); Potassium 4.1 mmol/L (3.5-5.1); Protein, Total 7.8 g/dL (6.4-8.2); Sodium Level 132 mmol/L (136-145)
[2024-07-28 13:43] LABS: D-Dimer Quantitative (DVT/PE) 1.04 FEU/ug/m (0.27-0.49)
[2024-07-29 17:07] LABS: PROEL- Albumin 3.6 g/dL (2.9-4.4); PROEL- Alpha-1 Globulin 0.2 g/dL (0.0-0.4); PROEL- Alpha-2 Globulin 0.9 g/dL (0.4-1.0); PROEL- Beta Globulin 1.2 g/dL (0.7-1.3); PROEL- Gamma Globulin 1.2 g/dL (0.4-1.8); PROEL- Globulin, Total 3.5 g/dL (2.2-3.9); PROEL- TOTAL PROTEIN 7.1 g/dL (6.0-8.5); PROEL-M-Spike Not Observed g/dL (Not Observed)
== END | disposition home or self-care (01) ==
LOC: MFPLAB 10:10
PROVIDERS: PCP Family Medicine; Referring Provider Family Medicine; Visit Provider Family Medicine
DX: J40 Bronchitis, not specified as acute or chronic (principal)
CPT/HCPCS: 36415; 80053; 83880; 84165; 85025; 85379; 85652; 86140

== ENCOUNTER → 2024-08-06 | Outpatient (CLI) | payer MEDICARE, SELFPAY ==
[2024-08-06 16:31] LABS: Mucous, Urine 0 SEEN /hpf (<or=2+)
[2024-08-06 18:39] LABS: Color, Urine Yellow (Yellow); Glucose, Dipstick 1000 mg/dl (Normal); Ketone-Dipstick Negative (Negative); Leukocyte Esterase-Dipstick 500 /ul (Negative); Nitrite-Dipstick Negative (Negative); Occult Blood-Urine 10 /ul (Negative); Protein-Dipstick Negative (Negative); Specific Gravity, Urine 1.005 (1.002-1.030); Urine Bilirubin Dipstick Negative (Negative); Urine Clarity Sl. Cloudy (Clear); Urine Urobilinogen Normal (Normal)
[2024-08-06 19:13] LABS: Bacteria 1+ /hpf (None Seen); Yeast-Urine 1+ /hpf (None Seen)
[2024-08-06 19:14] LABS: Red Blood Cells-Urine 0-5 SEEN /hpf (0-5); White Blood Cells 10-25 SEEN /hpf (0-5)
[2024-08-06 19:15] LABS: Squamous Epithelial Cells - UA 0-5 SEEN /hpf (0-5)
== END | disposition home or self-care (01) ==
PROVIDERS: PCP Family Medicine; Referring Provider Family Medicine; Visit Provider Family Medicine
DX: N39.0 Urinary tract infection, site not specified (principal)
CPT/HCPCS: 81001; 87086; 87088

== ENCOUNTER → 2024-08-13 | Outpatient (CLI) | payer MEDICARE, SELFPAY ==
[2024-08-13 15:18] LABS: Color, Urine Yellow (Yellow); Glucose, Dipstick 1000 mg/dl (Normal); Ketone-Dipstick 5 mg/dl (Negative); Leukocyte Esterase-Dipstick 500 /ul (Negative); Nitrite-Dipstick Negative (Negative); Occult Blood-Urine 10 /ul (Negative); Protein-Dipstick 15 mg/dl (Negative); Specific Gravity, Urine 1.015 (1.002-1.030); Urine Bilirubin Dipstick Negative (Negative); Urine Clarity Clear (Clear); Urine Urobilinogen Normal (Normal)
[2024-08-13 15:23] LABS: Mucous, Urine 0 SEEN /hpf (<or=2+)
[2024-08-13 15:24] LABS: Red Blood Cells-Urine 0-5 SEEN /hpf (0-5); White Blood Cells 10-25 SEEN /hpf (0-5)
[2024-08-13 15:25] LABS: Bacteria RARE /hpf (None Seen); Renal Epithelial Cells 0-5 SEEN /hpf (0-5); Squamous Epithelial Cells - UA 5-10 SEEN /hpf (0-5)
[2024-08-13 15:32] LABS: Absolute Neutrophil Count 6.3 X10^3/uL (2.0-7.7); Basophil# 0.03 X10^3/uL; Basophil% 0.4 % (0-1); Eosinophil# 0.12 X10^3/uL; Eosinophils% 1.5 % (0-5); Hematocrit 45.1 % (40-54); Hemoglobin 14.6 g/dL (13.0-16.5); Lymphocyte % 11.1 % (19-41); Mean Corp Hgb Conc 32.4 g/dL (32-36); Mean Corpuscular Hgb 29.4 pg (27.0-32.0); Mean Corpuscular Volume 90.7 fL (80-94); Mean Platelet Vol. 9.2 fl (6.2-12.0); Monocyte# 0.76 X10^3/uL; Monocyte% 9.4 % (0-10); NRBC Flagged by Analyzer 0 % (0-5); Neutrophil # 6.29 X10^3/uL (2.7-7.7); Neutrophil % 77.4 % (47-70); Platelet Count 348 K/mm3 (150-450); RBC Distribution Width CV 12.5 % (11.6-14.6); RBC Distribution Width SD 41.1 fl (35.1-43.9); Red Blood Count 4.97 M/mm3 (4.6-6.2); White Blood Count 8.1 K/mm3 (4.4-11.0)
[2024-08-13 15:39] LABS: Microalbumin,Random Urine 20.9 mg/L (NO RANGE EST.)
[2024-08-13 15:56] LABS: ALB/GLOB Ratio 0.8 RATIO (0.9-2.4); AST(SGOT) 11 U/L (15-37); Alanine Aminotransfer ALT/SGPT 29 U/L (16-61); Albumin, Serum 3.6 g/dL (3.2-5.0); Alkaline Phosphatase 79 U/L (45-117); Anion Gap 7 (5-15); BUN 29 mg/dL (7-18); BUN/Creat Ratio 19.2 RATIO (10-20); Calcium,Total 9.7 mg/dL (8.5-10.1); Chloride 97 mmol/L (98-107); Creatinine, Serum 1.51 mg/dL (0.70-1.30); EST Glomerular Filtration Rate 47 mL/min (>60); Est Glom Filt Rate - Afr Amer 57 mL/min (>60); Globulin 4.5 g/dL (2.2-4.2); Glucose 334 mg/dL (74-106); Potassium 4.9 mmol/L (3.5-5.1); Protein, Total 8.1 g/dL (6.4-8.2); Sodium Level 134 mmol/L (136-145); Thyroid Stim Hormone (TSH) 0.773 uIU/mL (0.358-3.740)
[2024-08-14 12:58] LABS: Hemoglobin A1c 9.3 % (3.8-5.6)
== END | disposition home or self-care (01) ==
LOC: MTLAB 12:42
PROVIDERS: PCP Family Medicine; Referring Provider Family Medicine; Visit Provider Family Medicine
DX: R81 Glycosuria (principal); G31.84 Mild cognitive impairment of uncertain or unknown etiology
CPT/HCPCS: 36415; 80053; 81001; 82043; 82570; 83036; 84443; 85025

== ENCOUNTER → 2024-09-10 | Outpatient (CLI) | payer MEDICARE, SELFPAY ==
[2024-09-10 15:02] LABS: Absolute Lymphocyte Count 0.84 X10^3/uL (0.83-4.51); Basophil# 0.04 X10^3/uL; Basophil% 0.5 % (0-1); Eosinophil# 0.05 X10^3/uL; Eosinophils% 0.7 % (0-5); Hematocrit 44.1 % (40-54); Hemoglobin 14.3 g/dL (13.0-16.5); Lymphocyte # 0.84 X10^3/ul (0.83-4.51); Mean Corp Hgb Conc 32.4 g/dL (32-36); Mean Corpuscular Hgb 30.2 pg (27.0-32.0); Mean Corpuscular Volume 93.2 fL (80-94); Mean Platelet Vol. 9.2 fl (6.2-12.0); Monocyte# 0.68 X10^3/uL; Monocyte% 8.9 % (0-10); NRBC Flagged by Analyzer 0 % (0-5); Neutrophil # 6.02 X10^3/uL (2.7-7.7); Neutrophil % 78.5 % (47-70); Platelet Count 316 K/mm3 (150-450); RBC Distribution Width CV 13.4 % (11.6-14.6); RBC Distribution Width SD 45.5 fl (35.1-43.9); Red Blood Count 4.73 M/mm3 (4.6-6.2); White Blood Count 7.7 K/mm3 (4.4-11.0)
[2024-09-10 15:51] LABS: ALB/GLOB Ratio 1.3 RATIO (0.9-2.4); AST(SGOT) 22 U/L (<=37); Alanine Aminotransfer ALT/SGPT 18 U/L (<=46); Albumin, Serum 4.3 g/dL (3.4-4.8); Alkaline Phosphatase 64 U/L (40-129); Anion Gap 13 (5-15); BUN 20 mg/dL (4-19); BUN/Creat Ratio 17.4 RATIO (10-20); Calcium 9.8 mg/dL (7.6-11.0); Carbon Dioxide 23.7 mmol/L (22.0-29.0); Chloride 104 mmol/L (96-108); Creatinine, Serum 1.2 mg/dL (0.8-1.3); EST Glomerular Filtration Rate 61 (>60); Globulin 3.5 g/dL (2.2-4.2); Glucose 131 mg/dL (70-99); Potassium 5.1 mmol/L (3.3-5.1); Protein, Total 7.8 g/dL (5.9-8.4); Sodium Level 141 mmol/L (133-145); Total Bilirubin 0.55 mg/dL (0.00-1.30)
[2024-09-10 16:26] LABS: Microalbumin,Random Urine < 12.0 mg/L (NO RANGE EST.)
== END | disposition home or self-care (01) ==
LOC: MFPLAB 11:44
PROVIDERS: PCP Family Medicine; Referring Provider Family Medicine; Visit Provider Family Medicine
DX: E11.9 Type 2 diabetes mellitus without complications (principal)
CPT/HCPCS: 36415; 80053; 82043; 82570; 85025

== ENCOUNTER 2024-10-01 11:00 | Outpatient (RCR) | payer MEDICARE, SELFPAY ==
--- NOTE | 2024-08-19 14:59 | HP.PTEVAL ---
Patient's Visit Information Visit Information Visit Information: CINDY COSTA is a 84 year old M referred to Physical Therapy by Dr. David Nava MD with a diagnosis of gait instability. Date of Evaluation: 08/19/24 Physical Therapist: David Jones, DPT, OCS, CSCS Visit Plan Frequency: 3x /Week Duration: 4-6 Weeks Plan: 3x/week for 4-6 weeks initially recommended 100% use of wh walker for HEP and fall risk reviewed. please treat with ensuring use of wh walker, traing gait and pregait with cane. weight shifting exercise and general strength ex for HEP, stair training with Fw weight shift. Subjective Subjective: Balance is getting bad. Hard to get out of bed one day and hard to move. May have had a UTI and diabetic possibility. Was weak. Has been deteriorating over last couple weeks or a month One fall last summer in garden. Fell a couple weeks ago in bathroom. Fell in bedroom and walking to bathroom and that was last week. Uses cane to get around now, not used before last week. has a wh walker rollator and likes it. better since last week. Employed from [employer]. Spends day doing not a whole lot. No exercises and should walk more. Loves his reclineer she says( of 65 yrs) No regular exercises. Basic ADLs : dresses self and showeers I down stairs with railing, no heelp needed in bathroom. Objective Objective: Walks back to PT with cane short steps poor tadeo shift adn SBA. Can walk with out AD but CGA to min A needed and unsteady. Using wh walker does weell with much bigger steps and safer, recommnding this at allt imes and he does have them at home. Transition out of chair and from table I, much UE assist required and avoids FW weight shift. steps are reciprocal requiring two rails and avoids FW weight shift pulling self up steps with arms, descending onto heel lacking PF strength. heel raises are challenging but able with VC, Toe raises are challenging with post weight shift. FGA done without AD today adn Min A. strength in core is 3/5, hips flexion and abd and ext 3, knee ext 3+ and flexion 3= B. ankles 4- but poor coordination inv and ev. rciprocal tapping is poor with heels and toes. Sensation may be at slight deficit in B feet to gross light touch. reflexes 1/3 patella adn achilles Max tightness HS at -45 90/90 test. Balance/Special Test Scores Functional Gait Assessment Score: 14 % Disability: 53.3400 CATSIB Score (Max score 120 seconds): 62 Lower Extremity Functional Score: 12 Goals Goal 1:: FGA to limit fall risk Goal Time Frame: 4-6 Weeks Goal 2:: I use of appropriate AD to limit future fall risk Goal Time Frame: 4-6 Weeks Goal 3:: I apporpriate strength and weight shift program at home HEP Goal Time Frame: 4-6 Weeks Goal 4:: steps reciprocally with one rail with good forward weight shift Goal Time Frame: 4-6 Weeks Goal 5:: exit chair without UE I Goal Time Frame: 4-6 Weeks Goal 6:: 40 LEFS Goal Time Frame: 4-6 Weeks Rehabilitation Potential Physical Therapy Diagnosis: poor weight shifting and weakness limiting safe mobility Rehabilitation Potential: Fair Anticipated Interventions Patient/Client Instruction: Educate patient on: Condition For the Purpose of:: To decrease pain, To increase ROM, To improve muscle performance and motor function, To increase tolerance to activity/condition/position, To improve ability of physical actions for home/community/work/leisure and To improve gait and locomotor functions Therapeutic Exercise to Include: Strength training, Flexibilty training, Gait and locomotor training, Passive ROM and Active ROM For the Purpose of:: To increase ROM, To improve nutrient delivery to tissue, To improve muscle performance and motor function and To increase tolerance to activity/condition/position Text: Thank you for the opportunity to evaluate your patient. For Medicare and Medicare HMO plans, please review the plan of care and approve it. It will need to be FAXED BACK to us at [phone] for Medicare purposes. For Medicare only, by signing this I certify the plan of care. Please let me know if there are questions or concerns regarding this plan of care. Physician Signature: Date:
--- NOTE | 2024-09-10 11:35 | HP.PTREVAL ---
Re-Evaluation Intro: Dr. David Nava MD, It has been my pleasure to treat CINDY COSTA over the last 7 visits for gait instability. Please see the progress note below for an update on the physical therapy plan of care! Subjective Subjective: Doing better. balance is improving. Doing xercises on TM and at home. Feels good when done, No falls. using cane and wh walker at home. ZUses can at [employer]. Feels like he needs more help family says. Family says in and out of chair is looking easier. Objective Objective/Function: Walks without AD for fGa today and improved but still short steps and slow especially when fatigued after 100 fet today, avoids FW weight shift. Better with cane with longer steps and more confidence. Using wh walker into PT and looks good with wh walker. Sit to stand without UE requires Min A and VC for FW weight shift but improved from day one. steps are 2 railings required.Fw weight shift still requiring cueing but corrects with cus. Appropriate to cotninue POC 4 weeks with fair prognosis, same goals Plan Plan Plan: 2x/week for 4 more weeks if approved to work on 1. FW weight shift exercises. 2. Gait training with challeenges. 3. Get on more aggressive home ex program(steep recover, heel raises, marching, band pulls, etc that patient can do on his own as safety allows. nsure pics of all oonce safe. Balance/Gait/Functional tests Balance/Special Test Scores Functional Gait Assessment Score: 20 % Disability: 33.3400 CATSIB Score (Max score 120 seconds): 62 Lower Extremity Functional Score: 20 Goals Goals Goal 1:: FGA to limit fall risk Goal Time Frame: 4-6 Weeks Goal 2:: I use of appropriate AD to limit future fall risk Goal Time Frame: 4-6 Weeks Goal Progress: Goal Met Goal 3:: I apporpriate strength and weight shift program at home HEP Goal Time Frame: 4-6 Weeks Goal Progress: Progressing Goal 4:: steps reciprocally with one rail with good forward weight shift Goal Time Frame: 4-6 Weeks Goal Progress: Progressing Goal 5:: exit chair without UE I Goal Time Frame: 4-6 Weeks Goal Progress: Progressing Goal 6:: 40 LEFS Goal Time Frame: 4-6 Weeks Goal Progress: +8 FGA Anticipated Interventions Anticipated Interventions Patient/Client Instruction: Educate patient on: Condition For the Purpose of:: To decrease pain, To increase ROM, To improve muscle performance and motor function, To increase tolerance to activity/condition/position, To improve ability of physical actions for home/community/work/leisure and To improve gait and locomotor functions Therapeutic Exercise to Include: Strength training, Flexibilty training, Gait and locomotor training, Passive ROM and Active ROM For the Purpose of:: To increase ROM, To improve nutrient delivery to tissue, To improve muscle performance and motor function and To increase tolerance to activity/condition/position Re-Evaluation Ending Re-evaluation ending: Please do not hesitate to contact me at [phone] by phone or if you have questions or concerns regarding this new plan of care! Sincerely, David Jones, DPT, OCS, CSCS
--- NOTE | 2024-10-01 12:02 | HP.PTDCSUM_ITS ---
Discharge Summary D/C summary: It has been my pleasure to treat CINDY COSTA referred by Dr. David Nava MD, with the diagnosis of gait instability for a total of 13 visit(s). Discharge Date: Please see the following information for a summary of their discharge status. Subjective Subjective: I am doing well. I feel good walking at home. No falls. Balance feels pretty good. Activities pretty normal at home. Basic ADLs are I. HEP going well. Doing well with home exercises. Using wh walker as needed at home. Steps at home yesterday and every other day. Overall Improvement % Improvement: 80 Objective Objective/Function: FGa much improved 9 points from day one and 3 points over last 3 weeks, still needing UE to exit chair, two rails on steps and lacks FW w eight shift. Ready to be on hos own vs wanting more theerapy. Goals Goal 1:: FGA to limit fall risk Goal Progress: Goal Met Goal 2:: I use of appropriate AD to limit future fall risk Goal Progress: Goal Met Goal 3:: I apporpriate strength and weight shift program at home HEP Goal Progress: Goal Met Goal 4:: steps reciprocally with one rail with good forward weight shift Goal Progress: 2 rails Goal 5:: exit chair without UE I Goal Progress: neds UEE Goal 6:: 40 LEFS Goal Progress: Goal Met Plan Plan: d/c D/C Information d/c sentence: If there are questions or concerns regarding this patient's physical therapy, please feel free to call me at [phone]. Thank you for the referral of this patient. Sincerely, David Jones, DPT, OCS, CSCS Balance/Gait/Functional tests Balance/Special Test Scores Functional Gait Assessment Score: 23 % Disability: 23.3400 CATSIB Score (Max score 120 seconds): 62 Lower Extremity Functional Score: 70 Improvement % Improvement: 80
== END 2024-10-01 19:00 | disposition home or self-care (01) ==
LOC: PT 11:00
PROVIDERS: PCP Family Medicine; Referring Provider Family Medicine; Visit Provider Family Medicine
DX: R26.89 Other abnormalities of gait and mobility (principal)
CPT/HCPCS: 97110; 97162; 97164; 97530

== ENCOUNTER 2024-10-26 09:20 | Outpatient (RCR) | payer MEDICARE, SELFPAY | END 2024-11-11 23:59 | LOC: NS 09:20 | PROVIDERS: PCP Family Medicine; Referring Provider Family Medicine; Visit Provider Family Medicine | DX: Z71.3 Dietary counseling and surveillance (principal); E11.9 Type 2 diabetes mellitus without complications | CPT/HCPCS: 97802 ==

== ENCOUNTER → 2024-11-16 | Outpatient (CLI) | payer MEDICARE, SELFPAY ==
[2024-11-16 16:35] LABS: ALB/GLOB Ratio 1.3 RATIO (0.9-2.4); AST(SGOT) 15 U/L (<=37); Alanine Aminotransfer ALT/SGPT 12 U/L (<=46); Albumin, Serum 4.2 g/dL (3.4-4.8); Alkaline Phosphatase 51 U/L (40-129); Anion Gap 12 (5-15); BUN 19 mg/dL (4-19); BUN/Creat Ratio 15.7 RATIO (10-20); Calcium,Total 9.2 mg/dL (7.6-11.0); Carbon Dioxide 21.8 mmol/L (21.0-32.0); Chloride 102 mmol/L (98-108); EST Glomerular Filtration Rate 59 (>60); Globulin 3.3 g/dL (2.2-4.2); Glucose 119 mg/dL (70-99); Potassium 4.4 mmol/L (3.3-5.1); Protein, Total 7.5 g/dL (5.9-8.4); Sodium Level 136 mmol/L (133-145); Total Bilirubin 0.59 mg/dL (0.00-1.30)
[2024-11-16 16:37] LABS: Microalbumin,Random Urine < 12.0 mg/L (NO RANGE EST.); Microalbumin:Creatinine Ratio UNABLE TO CALCULATE mg/g CRE
[2024-11-16 16:43] LABS: Hemoglobin A1c 6.6 % (<=5.6)
== END | disposition home or self-care (01) ==
LOC: MTLAB 13:23
PROVIDERS: PCP Family Medicine; Referring Provider Family Medicine; Visit Provider Family Medicine
DX: E11.9 Type 2 diabetes mellitus without complications (principal); I10 Essential (primary) hypertension
CPT/HCPCS: 36415; 80053; 82043; 82570; 83036

== ENCOUNTER 2025-01-10 13:27 | Observation (INO) | payer MEDICARE, SELFPAY ==
[2025-01-10] VITALS (13 sets, daily range): BP systolic 116–155; BP diastolic 61–90; PULSE 73–94; RESP 12–27; TEMP 36.8–37.1; O2SAT 93–98
--- NOTE | 2025-01-10 13:49 | EKG12_ITS ---
Test Reason : Blood Pressure : */* mmHG Vent. Rate : 87 BPM Atrial Rate : 87 BPM P-R Int : 216 ms QRS Dur : 84 ms QT Int : 356 ms P-R-T Axes : 62 -15 7 degrees QTcB Int : 428 ms Sinus rhythm with 1st degree A-V block with Premature supraventricular complexes Otherwise normal ECG Confirmed by LEELEE JORDAN, CAIT ([id number]), photo editor CINDY REEVES ([id number]) on 01/12/2025 6:34:49 AM Referred By: Justin Nixon Confirmed By: CAIT MCKOY MD
--- NOTE | 2025-01-10 14:05 | EX.ED.DYSGE1 ---
HPI <NAIMA Horner - Last Filed: 01/10/25 16:05> History of Present Illness Chief Complaint: Weakness Narrative Narrative: 84-year-old male with past medical history of hypertension, type 2 diabetes, FREDI, DVT/PE, and dementia presents with generalized weakness over the last 24 hours. Last night he fell twice. He did not have enough strength to get into bed and lowered himself to the ground. He did not really fall either time or hit his head. Family members came and helped him up. This morning he has not been able to walk much and 2 family members had to assist him into the car and he took a wheelchair in. He uses a rollator or cane at home usually. This morning they also noticed his left lower leg and foot are red. He has chronic bilateral foot swelling. They deny history of CAD or CHF. He had DVTs and PE a couple years ago and was on blood thinner for short time but no longer takes them. He denies recent fever or chills. He said normal p.o. intake. No nausea, vomiting, abdominal pain, diarrhea, melena hematochezia. He urinated more frequently overnight but states this is maybe because he was already awake. [facility] <NAIMA Horner - Last Filed: 01/10/25 16:05> [facility] Medical History Diabetes Pulmonary hypertension DVT (deep venous thrombosis) Pulmonary emboli Asthma Iron deficiency anemia FREDI (obstructive sleep apnea) Daytime hypersomnia Allergic rhinitis ankle surgery DDD (degenerative disc disease) Syncope and collapse Hypogonadism BPH (benign prostatic hyperplasia) Hypertension Hyperlipidemia Shortness of breath on exertion Cough Restrictive lung disease GERD (gastroesophageal reflux disease) Cough Bronchitis Wheezing Home Medications ?Medication ?Instructions ?Recorded ?Last Taken ?Type ferrous sulfate 325 mg (65 mg 325 mg PO DAILY #90 tabs 03/04/18 Unknown Rx iron) tablet fluticasone propionate 50 2 spray intranasal DAILY #16 grams 01/14/23 Unknown Rx mcg/actuation nasal spray,suspension ramipril 2.5 mg capsule 2.5 mg PO DAILY 01/14/23 Unknown History albuterol sulfate 90 mcg/actuation 2 puff inhalation Q4H PRN 10/16/23 Unknown Rx aerosol inhaler shortness of breath or wheezing #8.5 grams fluticasone 500 mcg-salmeterol 50 1 inh inhalation BID #60 ea 09/24/24 Unknown Rx mcg/dose blistr powdr for inhalation (Laura Inhub) dapagliflozin propanediol 10 mg 10 mg PO QDAY 10/21/24 Unknown History tablet (Farxiga) donepezil 10 mg tablet 10 mg PO QDAY 10/21/24 Unknown History sitagliptin phosphate 100 mg 100 mg PO QDAY 10/21/24 Unknown History tablet (Januvia) escitalopram oxalate 10 mg tablet 10 mg PO DAILY 01/10/25 Unknown History Allergy/AdvReac Type Severity Reaction Status Date / Time azithromycin Allergy unknown Verified 01/10/25 13:30 ciprofloxacin (From Cipro) Allergy confusion Verified 01/10/25 13:30 Environmental Allergies: Allergy NEEDS Verified 01/10/25 13:30 Uncoded FOLLOW-UP Family History (Reviewed 10/21/24 @ 15:35 by Lissette Flores APPLICATION RELEASE MANAGER, APPLICATION RELEASE MANAGER-C) Brother Heart disease Surgical History H/O bilateral inguinal hernia repair History of prostate surgery H/O sinus surgery Social History (Reviewed 10/21/24 @ 15:35 by Lissette Flores APPLICATION RELEASE MANAGER, APPLICATION RELEASE MANAGER-C) household members: spouse number of children: 4 current occupational status: retired Smoking Status: Never smoker second hand exposure: No alcohol intake: never substance use type: does not use ROS <NAIMA Horner - Last Filed: 01/10/25 16:05> ROS ED ROS Narrative Constitutional: Negative for fever, chills. CVS: Negative for chest pain, syncope. Respiratory: Negative for shortness of breath, cough. GI: Negative for abdominal pain, nausea, vomiting, diarrhea, melena, hematochezia. : Negative for dysuria. Neuro: Negative for headache. EXAM <NAIMA Horner - Last Filed: 01/10/25 16:05> Physical Exam Narrative Exam Narrative: CONST: Patient sitting in no acute distress. EYES: Normal inspection. NECK: Normal inspection. RESP: No respiratory distress, CTAB. CVS: Regular rate and rhythm, no murmur, no gallop. ABD: Soft and nontender, no guarding or rebound, nondistended. SKIN: Color normal, no rash, warm, dry, intact. EXTREMITIES: Symmetric 3+ bilateral ankle and foot edema. Onychomycosis of his nails and a small opening in the skin with the wound on the left medial great toenail area. Erythema and warmth extends from the great toe of the dorsal foot and ankle. No lymphangitis. 2+ DP pulses. NEURO: Alert to self, place, situation. Knows the month. Does not know the day. This is baseline per family. Follows commands, moving all extremities PSYCH: Normal affect. Const Vital Signs: 01/10/25 13:29 01/10/25 14:15 01/10/25 14:28 Temperature 98.3 F 98.5 F Temperature Source Oral Oral Pulse Rate 73 78 Respiratory Rate 18 12 Respiratory Effort Respiratory Pattern Blood Pressure 140/74 H 138/90 H 116/61 Blood Pressure Mean 96 98 79 Pulse Ox 98 97 Oxygen Delivery Method Room Air 01/10/25 14:30 01/10/25 14:36 01/10/25 14:45 Temperature Temperature Source Pulse Rate 85 Respiratory Rate 27 H Respiratory Effort Normal Respiratory Pattern Normal Blood Pressure 116/61 138/70 H Blood Pressure Mean 78 91 Pulse Ox 95 93 Oxygen Delivery Method Room Air 01/10/25 15:00 01/10/25 15:40 Temperature 98.5 F Temperature Source Pulse Rate 85 Respiratory Rate 27 H Respiratory Effort Respiratory Pattern Blood Pressure 139/68 H 139/68 H Blood Pressure Mean 85 91 Pulse Ox 95 95 Oxygen Delivery Method <Dr. Justin Nixon MD - Last Filed: 01/10/25 14:30> Physical Exam Const Vital Signs: 01/10/25 13:29 01/10/25 14:15 01/10/25 14:28 Temperature 98.3 F 98.5 F Temperature Source Oral Oral Pulse Rate 73 78 Respiratory Rate 18 12 Respiratory Effort Respiratory Pattern Blood Pressure 140/74 H 138/90 H 116/61 Blood Pressure Mean 96 98 79 Pulse Ox 98 97 Oxygen Delivery Method Room Air 01/10/25 14:30 01/10/25 14:36 01/10/25 14:45 Temperature Temperature Source Pulse Rate 85 Respiratory Rate 27 H Respiratory Effort Normal Respiratory Pattern Normal Blood Pressure 116/61 138/70 H Blood Pressure Mean 78 91 Pulse Ox 95 93 Oxygen Delivery Method Room Air 01/10/25 15:00 01/10/25 15:40 Temperature 98.5 F Temperature Source Pulse Rate 85 Respiratory Rate 27 H Respiratory Effort Respiratory Pattern Blood Pressure 139/68 H 139/68 H Blood Pressure Mean 85 91 Pulse Ox 95 95 Oxygen Delivery Method MDM <NAIMA Horner - Last Filed: 01/10/25 16:05> [facility] Narrative Medical decision making narrative: History gathered from: Patient, his , his [id number] Consults: Hospitalist Differential includes but not limited to cellulitis, no signs of abscess or necrotizing fasciitis. Pneumonia, UTI 84-year-old male with PMH of DM2, dementia presents with 1 day of generalized weakness, 2 falls at home without injury, and left lower extremity redness. He is awake alert no distress. Afebrile and hemodynamically stable. He has mild dementia but is answering most questions appropriately and neurologically intact and at baseline according to family here at bedside. Normal cardiopulmonary exam. Abdomen soft and nontender. Left foot has cracked skin and a small wound by the great toenail and there is redness extending from this area up the dorsal foot and ankle consistent with cellulitis. Both feet have symmetric pitting edema. There is no calf tenderness or palpable cords and I think this is consistent with cellulitis, not DVT. Labs show WBC of 12.0. Normal electrolytes. BUN 22, creatinine 1.37. It looks like he ranges between 1.0-1.5. Lactic is 1.1. CXR negative. Blood cultures were drawn and he was given IV Unasyn for left leg cellulitis. Since he is weak and has fallen twice and has difficulty ambulating he requires admission. Lab Data Attestation: I reviewed the patient's lab results. Labs: Laboratory Results - last 24 hr 01/10/25 14:00 WBC 12.0 H RBC 4.96 Hgb 15.0 Hct 44.6 MCV 89.9 MCH 30.2 MCHC 33.6 RDW Std Deviation 45.1 H RDW Coeff of Candy 13.6 Plt Count 230 MPV 8.8 Immature Gran % (Auto) 0.400 Neut % (Auto) 87.0 H Lymph % (Auto) 3.8 L [place] % (Auto) 8.5 Eos % (Auto) 0.0 Baso % (Auto) 0.3 Absolute Neuts (auto) 10.5 H Absolute Lymphs (auto) 0.45 L Nucleated RBC % 0 Sodium 136 Potassium 4.7 Chloride 102 Carbon Dioxide 23.5 Anion Gap 11 BUN 22 H Creatinine 1.37 H Estim Creat Clear Calc 54.00 Est GFR (MDRD) Non-Af 51 L BUN/Creatinine Ratio 15.9 Glucose 113 H Lactic Acid 1.1 Calcium 8.9 Radiography Diagnostic Testing: Clinical Impression(s) from Imaging Studies Chest X-Ray 01/10/25 14:12 IMPRESSION: Negative Chest. Reading Location: [facility] EKG Initial EKG: Attestation: I personally reviewed and interpreted this EKG as follows: Interpretation: Sinus Rhythm and No Acute Injury Pattern Comments: Sinus rhythm with first-degree AV block at 87 bpm Premature supraventricular complexes Prior EKG tracings: available for review Prior: Unchanged <Dr. Justin Nixon MD - Last Filed: 01/10/25 14:30> MDM History & Record Review Discussion w/independent historian: Patient and Family Additional record(s) reviewed:: Prior inpatient record, Prior outpatient record, Prior ED visit and Prior labs Lab Data Labs: Laboratory Results - last 24 hr 01/10/25 14:00 WBC 12.0 H RBC 4.96 Hgb 15.0 Hct 44.6 MCV 89.9 MCH 30.2 MCHC 33.6 RDW Std Deviation 45.1 H RDW Coeff of Candy 13.6 Plt Count 230 MPV 8.8 Immature Gran % (Auto) 0.400 Neut % (Auto) 87.0 H Lymph % (Auto) 3.8 L [place] % (Auto) 8.5 Eos % (Auto) 0.0 Baso % (Auto) 0.3 Absolute Neuts (auto) 10.5 H Absolute Lymphs (auto) 0.45 L Nucleated RBC % 0 Sodium 136 Potassium 4.7 Chloride 102 Carbon Dioxide 23.5 Anion Gap 11 BUN 22 H Creatinine 1.37 H Estim Creat Clear Calc 54.00 Est GFR (MDRD) Non-Af 51 L BUN/Creatinine Ratio 15.9 Glucose 113 H Lactic Acid 1.1 Calcium 8.9 Radiography Chest X-Ray - ED: 1 View, Read by ED Physician, Read by Radiologist, Heart, Lungs, Mediastinum, Bony Structures, No Acute Disease and Chronic Changes Diagnostic Testing: Clinical Impression(s) from Imaging Studies Chest X-Ray 01/10/25 14:12 IMPRESSION: Negative Chest. Reading Location: [id number] chest x-ray, portable, 2 films 1 view interpreted by by myself and radiology shows no acute abnormality. Normal cardiac silhouette. Normal lung alejandro. Chronic changes. No pneumonia. No effusion. Discharge Plan Dx/Rx/DC Orders Clinical Impression: Cellulitis of left leg, Generalized muscle weakness, Falls, Unable to ambulate, History of diabetes mellitus, Edema, peripheral, History of blood clots Disposition Disposition: Acute Care Hospital [facility]
--- NOTE | 2025-01-10 14:12 | RAD_ITS ---
PROCEDURE: CHEST 1 VIEW (PORTABLE) 01/10/2025 REASON FOR EXAM: WEAKNESS TECHNIQUE: Frontal view of the chest. COMPARISON: Chest radiograph 07/27/2024. FINDINGS: Hardware: None. Heart: Cardiac and mediastinal contours are stable. Lungs: No focal consolidation, pleural effusion or pneumothorax. Bones: Degenerative changes are identified within the thoracic spine. RAD/Chest 1 View (Portable) IMPRESSION: Negative Chest. Reading Location: [id number]
--- OUTSIDE RECORDS SUMMARY | 2025-01-10 14:17 | XMS RPT_ITS | CCD ---
Author Organization [facility] Care Team Providers Care General Teller Name Role Phone Yensho CARDIOPULMONARY TECHNOLOGIST CHIEF, Joleen A Unavailable Unavailab Elvira Huddleston Unavailable Unavailable Yensho AUGUSTUS, Joleen A Unavailable Unavailab Tiffani Bernal Unavailable Unavailable Dr. Gladis Nava Primary Care Provider 1([facility])[phone] Dr. Gladis Nava Referring Provider 1([facility])[phone] Kash Calle Attending Provider 1([facility])[phone] Franklin Cervantes Emergency Provider 1([facility])[phone] Noemi Manuel Admit Provider Dr. Noemi Manuel Attending Provider 1([facility])[phone] Noemi Manuel Other Provider Dr. Ray Cardenas Attending Provider 1([facility]) [phone] Dr. Gladis Fried Attending Provider 1([facility])-[phone] Gladis Sue Attending Provider 1([facility])[phone] Gladis Sue Other Provider Dr. Gladis Nava Primary Care Provider 1([facility])[phone] Dr. Gladis Nava Referring Provider 1([facility])[phone] Kash Calle Attending Provider 1([facility])[phone] Franklin Cervantes Emergency Provider 1([facility])[phone] Noemi Manuel Admit Provider Dr. Noemi Manuel Attending Provider 1([facility])[phone] Noemi Manuel Other Provider Dr. Ray Cardenas Attending Provider 1([facility])[phone] Dr. Gladis Fried Attending Provider 1([facility])[phone] Gladis Sue Attending Provider [phone] Gladis Sue Other Provider Elijah JORDAN, Gladis A Primary Care Provider [phone] ELIGIO, MARLON Referring Unavailable NAVA, GLADIS A Primary Care Unavailable ELIGIO, MARLON Attending Unavailable NAVA, GLADIS A Primary Care Unavailable ELIGIO, MARLON Attending Unavailable NAAV, GLADIS A Primary Care Unavailable ELIGIO, MARLON Attending Unavailable NAVA, GLADIS A Primary Care Unavailable ELIGIO, MARLON Admitting Unavailable ELIGIO, MARLON Attending Unavailable NAVA, GLADIS A Primary Care Unavailable Elijah JORDAN, Dr. Hernandez Primary Care Provider Elijah JORDAN, Dr. Hernandez Attending Provider Elijah JORDAN, Dr. Hernandez Referring Provider Dr. Jaya Quick DO Attending Provider Dr. Jaya Quick DO Emergency Provider Mark PLUNKETT-CLissette Attending Provider Nava, Gladis Primary Care Unavailable Nava, Gladis Attending Unavailable Nava, Gladis Referring Unavailable Nava, Gladis Attending Unavailable Nava, Gladis Referring Unavailable Nava, Gladis Primary Care Unavailable Nava, Gladis Attending Unavailable Nava, Gladis Referring Unavailable Nava, Gladis Primary Care Unavailable Nava, Gladis Attending Unavailable Nava, Gladis Referring Unavailable Nava, Gladis Primary Care Unavailable Nava, Gladis Primary Care Unavailable Nava, Gladis Attending Unavailable Nava, Gladis Referring Unavailable Nava, Gladis Primary Care Unavailable Nava, Gladis Attending Unavailable Nava, Gladis Referring Unavailable Nava, Gladis Primary Care Unavailable Lissette Flores NP Attending Unavailable Nava, Gladis Referring Unavailable Nava, Gladis Primary Care Unavailable Nava, Gladis Attending Unavailable Nava, Gladis Referring Unavailable Nava, Gladis Attending Unavailable Nava, Gladis Referring Unavailable Nava, Gladis Primary Care Unavailable Nava, Gladis Primary Care Unavailable Nava, Gladis Attending Unavailable Nava, Gladis Primary Care Unavailable Nava, Gladis Attending Unavailable Nava, Gladis Referring Unavailable Nava, Gladis Primary Care Unavailable Jaya Quick Unavailable Allergies Allergy Classification Reported Allergen(s) Allergy Type Date of Onset Reaction(s) Facility (19 sources) Azithromycin; Translations: [AZITHROMYCIN] Drug Allergy 10-14-202 1 Unknown [facility] (14 sources) Ciprofloxacin; Translations: [CIPROFLOXACIN] Drug Allergy 1 Unknown [facility] (3 sources) ENVIRONMENTAL ALLERGIES Allergy to substance 1 Other [facility] Work Phone: (9 sources) Environmental Allergies: Uncoded; Translations: [Environmental Allergies: Uncoded] Allergy to substance 2 NEEDS FOLLOW-UP [facility] (1 source) Azithromycin Drug Allergy 5 [facility] (1 source) Ciprofloxacin Drug Allergy 5 [facility] Medications Current Medications Medication Drug Class(es) Dates Sig (Normalized) Sig (Original) [id number] 200 actuat albuterol 0.09 mg/actuat metered dose inhaler (18 sources) beta2-Adrenergic Agonist Start: 10-16-2023 Albuterol Sulfate 90 mcg/actuation HFA aerosol inhaler Active 2 NMA INHALATION Q4H as needed for shortness of breath or wheezing 8.5 October 16, 2023 12:00am administer with spacer Start: 06-10-2019 End: 06-10-2019 Albuterol Sulfate 90 mcg/act uation HFA aerosol inhaler Discontinued 2 NMA INHALATION Q4H as needed for Asthma June 10, 2019 1:00am June 10, 2019 2:20pm Start: 06-10-2019 End: 06-10-2019 take 1 puff(s) by inhalation every four hours Albuterol Sulfate Discontinued 2 PUFF INHALATION Q4H June 10, 2019 12:00am June 10, 2019 1:20pm ascorbic acid 1000 mg oral tablet (4 sources) Vitamin C Start: 03-19-2018 take 1 g by mouth once daily Ascorbic Acid (Vitamin C) Active 1 GM PO DAILY March 19, 2018 12:00am aspirin 81 mg delayed release oral tablet (4 sources) Platelet Aggregation Inhibitor, Nonsteroidal Anti-inflammatory Drug Start: 02-27-2018 take 81 mg by mouth once daily Aspirin Active 81 MG PO daily February 27, 2018 12:00am azelastine hydrochloride 0.206 mg/actuat metered dose nasal spray (4 sources) Histamine-1 Receptor Antagonist Start: 06-12-2019 take 1 spray(s) nasal route twice daily Azelastine Active 1 SPRAY INTRANASAL TWICE A DAY June 12, 2019 1:00am administer into each nostril dapagliflozin 10 mg oral tablet (1 source) Sodium-Glucose Cotransporter 2 Inhibitor Start: 10-21-2024 take 1 tablet by mouth once daily Dapagliflozin Propanediol (Farxiga) 10 mg tablet Active 10 mg PO daily October 21, 2024 12:00am donepezil hydrochloride 10 mg oral tablet (13 sources) Start: 10-21-2024 take 1 tablet by mouth once daily Donepezil 10 mg tablet Active 10 mg PO daily October 21, 2024 12:00am Start: 09-03-2022 End: 10-21-2024 take 1 tablet by mouth at bedtime Donepezil 5 mg tablet Discontinued 5 mg PO AT BEDTIME September 03, 2022 1:00am October 21, 2024 3:27pm ferrous sulfate 325 mg oral tablet (20 sources) Start: 02-28-2018 End: 03-19-2018 take 1 tablet by mouth once daily Ferrous Sulfate 325 MG tablet Active 325 mg PO DAILY March 04, 2018 12:00am fluticasone propionate 0.05 mg/actuat metered dose nasal spray (20 sources) Corticosteroid Start: 10-31-2022 End: 01-14-2023 Fluticasone Propionate 50 mcg/actuation spray,suspension Active 2 NMA INTRANASAL DAILY January 14, 2023 10:31am Start: 10-31-2022 End: 01-14-2023 Fluticasone Propionate Activ e 2 SPRAY INTRANASAL DAILY January 14, 2023 9:31am Start: 06-12-2019 Fluticasone Pr opionate Active 1 SPRAY INTRANASAL TWICE A DAY June 12, 2019 1:00am Start: 06-08-2019 End: 06-12-2019 Fluticasone Propionate 50 mcg/actuation spray,suspension Discontinued 2 NMA INTRANASAL DAILY June 08, 2019 1:00am June 12, 2019 11:18am Start: 06-08-2019 End: 06-12-2019 Fluticasone Propionate Disco ntinued 2 SPRAY INTRANASAL DAILY June 08, 2019 12:00am June 12, 2019 10:18am Start: 08-22-2017 End: 02-27-2018 take 50 ug nasal route once daily Fluticasone Propionate (Flonase Allergy Relief) 50 mcg/actuation spray,suspension Discontinued 2 NMA INTRANASAL daily August 22, 2017 1:00am February 27, 2018 10:12am administer into each nostril Start: 08-22-2017 End: 02-27-2018 take 1 spray(s) nasal route once daily Fluticasone Propionate (Flonase Allergy Relief) 50 mcg/actuation spray,suspension Discontinued 2 SPRAY INTRANASAL daily August 22, 2017 12:00am February 27, 2018 9:12am administer into each nostril Fluticasone Propion-Salmeterol (20 sources) Corticosteroid, beta2-Adrenergic Agonist Start: 09-24-2024 Fluticasone Propion-Salmeterol (Wixela Inhub) 500-50 mcg/dose blister with device Active 1 NMA INHALATION TWICE A DAY September 24, 2024 10:52am Start: 09-16-2023 take 1 puff(s) by in halation twice daily fluticasone propion-salmeteroL (Advair Diskus) 500-50 mcg/dose diskus inhaler Inhale 1 puff 2 times a day. 09/16/2023 Active Start: 09-16-2023 take 1 puff(s) by in halation twice daily fluticasone propion-salmeteroL (Advair Diskus) 500-50 mcg/dose diskus inhaler Inhale 1 puff 2 times a day. 0 09/16/2023 Active Start: 09-16-2023 End: 09-24-2024 Fluticasone Propion-Salmeter ol (Wixela Inhub) 500-50 mcg/dose blister with device Discontinued 1 NMA INHALATION TWICE A DAY September 16, 2023 9:55am September 24, 2024 10:52am Start: 09-16-2023 Fluticasone Pr opion-Salmeterol (Wixela Inhub) 500-50 mcg/dose blister with device Active 1 NMA INHALATION TWICE A DAY September 16, 2023 9:55am Start: 09-03-2022 End: 09-16-2023 Fluticasone Propion-Salmeter ol (Wixela Inhub) 500-50 mcg/dose blister with device Discontinued 1 NMA INHALATION TWICE A DAY 60 September 03, 2022 9:53am September 16, 2023 9:55am Start: 09-03-2022 Fluticasone Pr opion-Salmeterol (Wixela Inhub) 500-50 mcg/dose blister with device Active 1 INH INHALATION TWICE A DAY 60 September 03, 2022 9:53am Start: 09-03-2022 Fluticasone Pr opion-Salmeterol (Wixela Inhub) 500-50 mcg/dose blister with device Active 1 INH INHALATION TWICE A DAY 60 September 03, 2022 8:53am Start: 07-31-2022 End: 09-03-2022 Fluticasone Propion-Salmeter ol (Wixela Inhub) 500-50 mcg/dose blister with device Discontinued 1 NMA INHALATION TWICE A DAY 60 July 31, 2022 12:05pm September 03, 2022 9:53am Start: 07-31-2022 End: 09-03-2022 Fluticasone Propion-Salmeter ol (Wixela Inhub) 500-50 mcg/dose blister with device Discontinued 1 INH INHALATION TWICE A DAY 60 July 31, 2022 12:05pm September 03, 2022 9:53am Start: 07-31-2022 End: 09-03-2022 Fluticasone Propion-Salmeter ol (Wixela Inhub) 500-50 mcg/dose blister with device Discontinued 1 INH INHALATION TWICE A DAY 60 July 31, 2022 11:05am September 03, 2022 8:53am Start: 07-27-2022 End: 07-31-2022 Fluticasone Propion-Salmeter ol (Wixela Inhub) 500-50 mcg/dose blister with device Discontinued 1 NMA INHALATION TWICE A DAY 3 July 27, 2022 5:25pm July 31, 2022 12:06pm Start: 07-27-2022 End: 07-31-2022 Fluticasone Propion-Salmeter ol (Wixela Inhub) 500-50 mcg/dose blister with device Discontinued 1 INH INHALATION TWICE A DAY 3 July 27, 2022 5:25pm July 31, 2022 12:06pm Start: 07-27-2022 End: 07-31-2022 Fluticasone Propion-Salmeter ol (Wixela Inhub) 500-50 mcg/dose blister with device Discontinued 1 INH INHALATION TWICE A DAY 3 July 27, 2022 4:25pm July 31, 2022 11:06am Start: 07-12-2021 End: 07-27-2022 Fluticasone Propion-Salmeter ol (Wixela Inhub) 500-50 mcg/dose blister with device Discontinued 1 NMA INHALATION TWICE A DAY 3 July 12, 2021 2:43pm July 27, 2022 5:26pm Start: 07-12-2021 End: 07-27-2022 Fluticasone Propion-Salmeter ol (Wixela Inhub) 500-50 mcg/dose blister with device Discontinued 1 INH INHALATION TWICE A DAY 3 July 12, 2021 2:43pm July 27, 2022 5:26pm Start: 07-12-2021 End: 07-27-2022 Fluticasone Propion-Salmeter ol (Wixela Inhub) 500-50 mcg/dose blister with device Discontinued 1 INH INHALATION TWICE A DAY 3 July 12, 2021 1:43pm July 27, 2022 4:26pm Start: 07-12-2021 Fluticasone Pr opion-Salmeterol (Wixela Inhub) 500-50 mcg/dose blister with device Active 1 INH INHALATION TWICE A DAY 3 July 12, 2021 2:43pm Start: 04-27-2021 End: 07-12-2021 Fluticasone Propion-Salmeter ol (Wixela Inhub) 500-50 mcg/dose blister with device Discontinued 1 NMA INHALATION TWICE A DAY 3 April 27, 2021 10:07am July 12, 2021 2:43pm Start: 04-27-2021 End: 07-12-2021 Fluticasone Propion-Salmeter ol (Wixela Inhub) 500-50 mcg/dose blister with device Discontinued 1 INH INHALATION TWICE A DAY 3 April 27, 2021 9:07am July 12, 2021 1:43pm Start: 04-27-2021 End: 07-12-2021 Fluticasone Propion-Salmeter ol (Wixela Inhub) 500-50 mcg/dose blister with device Discontinued 1 INH INHALATION TWICE A DAY 3 April 27, 2021 10:07am July 12, 2021 2:43pm Start: 02-15-2021 End: 04-27-2021 Fluticasone Propion-Salmeter ol (Wixela Inhub) 500-50 mcg/dose blister with device Discontinued 1 NMA INHALATION TWICE A DAY 60 February 15, 2021 8:59am April 27, 2021 10:07am Start: 02-15-2021 End: 04-27-2021 Fluticasone Propion-Salmeter ol (Wixela Inhub) 500-50 mcg/dose blister with device Discontinued 1 INH INHALATION TWICE A DAY 60 February 15, 2021 7:59am April 27, 2021 9:07am Start: 02-15-2021 End: 04-27-2021 Fluticasone Propion-Salmeter ol (Wixela Inhub) 500-50 mcg/dose blister with device Discontinued 1 INH INHALATION TWICE A DAY 60 February 15, 2021 8:59am April 27, 2021 10:07am Start: 08-11-2020 End: 02-15-2021 Fluticasone Propion-Salmeter ol (Wixela Inhub) 500-50 mcg/dose blister with device Discontinued 1 INH INHALATION TWICE A DAY 60 August 11, 2020 12:23pm February 15, 2021 8:59am Start: 08-11-2020 End: 02-15-2021 Fluticasone Propion-Salmeter ol (Wixela Inhub) 500-50 mcg/dose blister with device Discontinued 1 NMA INHALATION TWICE A DAY 60 August 11, 2020 1:00am February 15, 2021 8:59am Start: 08-11-2020 End: 02-15-2021 Fluticasone Propion-Salmeter ol (Wixela Inhub) 500-50 mcg/dose blister with device Discontinued 1 INH INHALATION TWICE A DAY 60 August 11, 2020 12:00am February 15, 2021 7:59am Start: 08-11-2020 End: 02-15-2021 Fluticasone Propion-Salmeter ol (Wixela Inhub) 500-50 mcg/dose blister with device Discontinued 1 INH INHALATION TWICE A DAY August 11, 2020 1:00am February 15, 2021 8:59am Start: 07-17-2019 End: 08-11-2020 take 1 puff(s) by mouth twice daily Fluticasone Propion-Salmeterol (Advair Hfa) 115-21 mcg/actuation HFA aerosol inhaler Discontinued 2 PUFF INHALATION TWICE A DAY July 17, 2019 2:14pm August 11, 2020 12:23pm rinse mouth after each use Start: 07-17-2019 End: 08-11-2020 Fluticasone Propion-Salmeter ol (Advair Hfa) 115-21 mcg/actuation HFA aerosol inhaler Discontinued 2 NMA INHALATION TWICE A DAY July 17, 2019 1:00am August 11, 2020 12:23pm rinse mouth after each use Start: 07-17-2019 End: 08-11-2020 take 1 puff(s) by mouth twice daily Fluticasone Propion-Salmeterol (Advair Hfa) 115-21 mcg/actuation HFA aerosol inhaler Discontinued 2 PUFF INHALATION TWICE A DAY July 17, 2019 12:00am August 11, 2020 11:23am rinse mouth after each use Start: 07-17-2019 End: 08-11-2020 take 1 puff(s) by mouth twice daily Fluticasone Propion-Salmeterol (Advair Hfa) 115-21 mcg/actuation HFA aerosol inhaler Discontinued 2 PUFF INHALATION TWICE A DAY July 17, 2019 1:00am August 11, 2020 12:23pm rinse mouth after each use loratadine 10 mg oral capsule (4 sources) Start: 06-08-2019 take 10 mg by mouth once daily Loratadine Active 10 MG PO daily June 08, 2019 1:00am ramipril 2.5 mg oral capsule (9 sources) Angiotensin Converting Enzyme Inhibitor Start: 01-14-2023 take 1 capsule by mouth once daily Ramipril 2.5 mg capsule Active 2.5 mg PO DAILY January 14, 2023 12:00am SITagliptin 100 mg oral tablet (1 source) Dipeptidyl Peptidase 4 Inhibitor Start: 10-21-2024 take 1 tablet by mouth once daily Sitagliptin Phosphate (Januvia) 100 mg tablet Active 100 mg PO daily October 21, 2024 12:00am vitamin e 268 mg oral capsule (5 sources) Start: 08-12-2007 take 1 capsule by mouth once daily alpha tocopherol (Vitamin E) 268 mg (400 unit) capsule Take 1 capsule (400 Units) by mouth once daily. 08/12/2007 Active Completed/Discontinued Medications Medication Drug Class(es) Dates Sig (Normalized) Sig (Original) amoxicillin 500 mg oral capsule (11 sources) Penicillin-class Antibacterial Start: 07-24-2017 End: 09-23-2017 take 1 capsule by mouth three times daily Amoxicillin 500 mg capsule Discontinued 500 mg PO THREE TIMES A DAY July 24, 2017 1:00am September 23, 2017 8:45am apixaban 5 mg oral tablet (6 sources) Factor Xa Inhibitor Start: 09-06-2022 End: 10-16-2023 take 2 tablets by mouth twice daily, then take 1 tablet by mouth twice daily Apixaban (Eliquis) 5 mg Tablet Discontinued 10 mg PO TWICE A DAY 60 September 06, 2022 1:00am October 16, 2023 10:51am 2 tabs twice daily for 7 days, then 1 tab twice daily. azelastine hydrochloride 0.137 mg/actuat / fluticasone propionate 0.05 mg/actuat metered dose nasal spray (11 sources) Corticosteroid, Histamine-1 Receptor Antagonist Start: 06-12-2019 End: 06-12-2019 Azelastine-Flutica sone (Dymista) 137-50 mcg/spray spray,non-aerosol Discontinued 1 NMA INTRANASAL TWICE A DAY June 12, 2019 1:00am June 12, 2019 1:03pm administer into each nostril Start: 06-12-2019 End: 06-12-2019 take 1 spray(s) nasal route twice daily azelastine-fluticasone 137 mcg-50 mcg/spray nasal spray Discontinued 1 SPRAY INTRANASAL TWICE A DAY June 12, 2019 12:00am June 12, 2019 12:03pm administer into each nostril benzonatate 100 mg oral capsule (14 sources) Non-narcotic Antitussive Start: 07-23-2017 End: 09-23-2017 take 1 capsule by mouth three times daily Benzonatate (Tessalon Perles) 100 mg capsule Discontinued 100 mg PO THREE TIMES A DAY July 23, 2017 1:00am September 23, 2017 8:46am Start: 06-10-2017 take 1 tablet by kelechi th three times daily TESSALON PERLES 100 MG CAPS One tablet by mouth three times daily BENZONATATE [id number] Elvira Royal 120 actuat budesonide 0.16 mg/actuat / formoterol fumarate 0.0045 mg/actuat metered dose inhaler (20 sources) Corticosteroid, beta2-Adrenergic Agonist Start: 06-08-2019 End: 07-17-2019 Budesonide-Formoterol (Symbicort) 160-4.5 mcg/actuation HFA aerosol inhaler Discontinued 2 NMA INHALATION TWICE A DAY July 17, 2019 12:39pm July 17, 2019 2:14pm administer with spacer, rinse mouth after each use Start: 06-08-2019 End: 07-17-2019 take 1 puff(s) by mouth twice daily Budesonide-Formoterol (Symbicort) 160-4.5 mcg/actuation HFA aerosol inhaler Discontinued 2 PUFF INHALATION TWICE A DAY July 17, 2019 11:39am July 17, 2019 1:14pm administer with spacer, rinse mouth after each use cefdinir 300 mg oral capsule (3 sources) Cephalosporin Antibacterial Start: 06-10-2017 End: 06-20-2017 take 1 tablet by mouth twice daily CEFDINIR 300 MG CAPS One tablet by mouth twice daily CEFDINIR [id number] Elvira Royal chlorpheniramine maleate 4 mg oral tablet (11 sources) Histamine-1 Receptor Antagonist Start: 06-08-2019 End: 11-11-2020 take 1 tablet by mouth once Chlorpheniramine Maleate (Allergy Relief(Chlorpheniram n)) 4 mg tablet Discontinued 4 mg PO ONCE June 08, 2019 1:00am November 11, 2020 1:54pm codeine phosphate 2 mg/ml / guaiFENesin 20 mg/ml oral solution (11 sources) Opioid Agonist Start: 07-23-2017 End: 07-24-2017 take 1 mL by mouth every four hours as needed Codeine-Guaifenesin 10-100 mg/5 mL liquid Discontinued 10 mL PO Q4H as needed July 23, 2017 1:00am July 24, 2017 9:53am Start: 07-23-2017 End: 07-24-2017 take 1 mL by mouth every four hours Codeine-Guaifenesin Discontinued 10 ML PO Q4H July 23, 2017 12:00am July 24, 2017 8:53am doxycycline hyclate 100 mg oral tablet (11 sources) Tetracycline-class Drug Start: 07-17-2019 End: 11-11-2020 take 1 tablet by mouth twice daily Doxycycline Hyclate 100 mg tablet Discontinued 100 mg PO TWICE A DAY July 17, 2019 1:00am November 11, 2020 1:56pm Fluad Quad (65yr up)(PF) 60 mcg (15 mcg x 4)/0.5mL IM syringe (flu vac (2 sources) Start: 04-27-2021 End: 04-27-2021 Fluad Quad (65yr up)(PF) 60 mcg (15 mcg x 4)/0.5mL IM syringe (flu vac Discontinued 60 MCG IM ONCE 0.5 April 27, 2021 9:34am April 27, 2021 10:13am gadoterate meglumine (Dotarem) 0.5 mmol/mL contrast injection 23 mL (2 sources) Start: 10-11-2023 End: 10-11-2023 gadoterate meglumine (Dotarem) 0.5 mmol/mL contrast injection 23 mL GUAIFENESIN-CODEI NE (3 sources) Start: 06-10-2017 take 10 mL by mouth every four hours AMBITUSSIN AC 100-10 MG/5ML SOLN 10ml by mouth every 4 hours as needed GUAIFENESIN-CODEI NE [id number] Elvira Royal lisinopril 10 mg oral tablet (20 sources) Angiotensin Converting Enzyme Inhibitor Start: 02-27-2018 End: 10-16-2023 take 2 tablets by mouth at bedtime Lisinopril 10 mg tablet Discontinued 20 mg PO AT BEDTIME February 27, 2018 10:12am October 16, 2023 10:52am Start: 02-27-2018 take 20 mg by mouth at bedtime Lisinopril Active 20 MG PO AT BEDTIME February 27, 2018 9:12am Start: 07-23-2017 End: 02-27-2018 take 1 tablet by mouth once daily Lisinopril 10 mg tablet Discontinued 10 mg PO daily July 23, 2017 1:00am February 27, 2018 10:13am Start: 06-12-2017 take 1 tablet by kelechi once daily LISINOPRIL 10 MG TABS One tablet by mouth daily LISINOPRIL [id number] Elvira Royal montelukast 10 mg oral tablet (20 sources) Leukotriene Receptor Antagonist Start: 08-22-2017 End: 11-11-2020 take 1 tablet by mouth at bedtime Montelukast 10 mg tablet Discontinued 10 mg PO AT BEDTIME February 09, 2020 11:00am November 11, 2020 1:55pm nitrofurantoin, macrocrystals 25 mg / nitrofurantoin, monohydrate 75 mg oral capsule (1 source) Nitrofuran Antibacterial Start: 10-30-2023 End: 10-30-2023 take 1 capsule by mouth once, then take 1 capsule by mouth every hour nitrofurantoin, macrocrystal-mono hydrate, (Macrobid) 100 mg capsule Indications: Need for prophylactic antibiotic Take 1 capsule (100 mg) by mouth 1 time for 1 dose. Take 1 capsule by mouth 1 hour prior to cystoscopy 1 capsule 10/30/2023 10/30/2023 Drug Treatment Unknown - unknown (1 source) No information available. predniSONE 10 mg oral tablet (20 sources) Corticosteroid Start: 08-11-2020 End: 11-11-2020 Prednisone 10 mg tablet Discontinued 10 mg PO daily August 11, 2020 1:00am November 11, 2020 1:56pm take 4 tabs for three days, then 3 tabs for three days, then 2 tabs for three days, then 1 tab for 3 days Start: 06-12-2019 End: 07-17-2019 take 3 tablets by mouth once daily at mealtime Prednisone 20 mg tablet Discontinued 60 mg PO daily June 12, 2019 1:00am July 17, 2019 12:17pm administer with food or milk Start: 06-12-2019 End: 07-17-2019 take 60 mg by mouth once daily at mealtime Prednisone Discontinued 60 MG PO daily June 12, 2019 12:00am July 17, 2019 11:17am administer with food or milk Start: 06-10-2017 PREDNISONE 10 MG TABS 4 tablets by mouth daily X2 days, 3 tablets by mouth daily X2 days, 2 tablets by mouth X2 days, 1 tablet by mouth daily X2 days, then stop PREDNISONE [id number] Elvira Royal RABEprazole sodium 20 mg delayed release oral tablet (20 sources) Proton Pump Inhibitor Start: 02-28-2018 End: 06-08-2019 take 1 tablet by mouth once daily Rabeprazole 20 MG tablet,delayed release (DR/EC) Discontinued 20 mg PO DAILY February 28, 2018 12:00am June 08, 2019 4:09pm Start: 07-23-2017 End: 02-27-2018 take 1 tablet by mouth every other day Rabeprazole (Aciphex) 20 mg tablet,delayed release (DR/EC) Discontinued 20 mg PO .COMPLEX July 23, 2017 1:00am February 27, 2018 10:12am 20 mg PO every other day Start: 06-12-2017 ACIPHEX 20 MG TBEC 1 tablet every other day RABEPRAZOLE SODIUM [id number] Elvira Royal triamcinolone acetonide 40 mg/ml injectable suspension (4 sources) Corticosteroid Start: 07-17-2019 End: 07-17-2019 Kenalog (triamcinolone acetonide) 40 mg/mL suspension for injection Discontinued 90 MG INTRAARTIC ONCE .July 17, 2019 12:08pm July 17, 2019 1:05pm Start: 06-08-2019 End: 06-08-2019 Kenalog (triamcinolone aceto nide) 40 mg/mL suspension for injection Discontinued 90 MG INTRAARTIC ONCE .June 08, 2019 4:02pm June 08, 2019 5:10pm Problems Active Problems Problem Classification Problem Date Documented Da te Episodic/Chronic Acute myocardial infarction (8 sources) Myocardial infarction; Translations: [Non-ST elevation (NSTEMI) myocardial infarction] 09-04-2022 Chronic Asthma (14 sources) Asthma; Translations: [Unspecified asthma, uncomplicated] 08-11-2020 Chronic Cardiac dysrhythmias (2 sources) Irregular heart beat; Translations: [Cardiac arrhythmia, unspecified] 10-22-2024 Chronic Chronic obstructive pulmonary disease and bronchiectasis (2 sources) Chronic bronchitis; Translations: [Unspecified chronic bronchitis] Onset: 7 06-12-2017 Chronic Deficiency and other anemia (11 sources) Iron deficiency anemia; Translations: [Iron deficiency anemia, unspecified] 03-04-2018 Episodic Diabetes mellitus without complication (3 sources) Diabetes mellitus; Translations: [Type 2 diabetes mellitus without complications] Onset: 5 10-21-2024 Chronic Diabetes mellitus without complication (1 source) Glycosuria; Translations: [Glycosuria] Onset: 5 Episodic Disorders of lipid metabolism (11 sources) Hyperlipidemia; Translations: [Hyperlipidemia, unspecified] 03-04-2018 Chronic Esophageal disorders (11 sources) Gastroesophageal reflux disease; Translations: [Gastro-esophageal reflux disease without esophagitis] 06-08-2019 Chronic Essential hypertension (11 sources) Hypertensive disorder; Translations: [Essential (primary) hypertension] 03-04-2018 Chronic Genitourinary symptoms and ill-defined conditions (1 source) Unspecified urinary incontinence; Translations: [Unspecified urinary incontinence] Onset: 4 Chronic Genitourinary symptoms and ill-defined conditions (4 sources) Increased frequency of urination; Translations: [Frequency of micturition] Onset: 4 09-27-2023 Episodic Hyperplasia of prostate (20 sources) Benign prostatic hyperplasia; Translations: [Benign prostatic hyperplasia without lower urinary tract symptoms] Onset: 4 06-08-2019 Chronic Other aftercare (1 source) 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; Translations: [terminal make up operator (current) use of antibiotics] 10-30-2023 Episodic Other aftercare (2 sources) terminal make up operator (current) use of antibiotics; Translations: [senior care (current) use of antibiotics] Onset: 4 Episodic Other diseases of bladder and urethra (2 sources) Disorder of bladder; Translations: [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] Onset: 4 11-29-2023 Chronic Other diseases of bladder and urethra (1 source) 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; Translations: [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] Onset: 4 Chronic Other diseases of kidney and ureters (6 sources) Other obstructive and reflux uropathy; Translations: [Other obstructive and reflux uropathy] Onset: Episodic Other endocrine disorders (3 sources) Hypogonadism 09-14-2022 Chronic Other hematologic conditions (7 sources) Raised cardiac enzyme or marker; Translations: [Other specified abnormalities of plasma proteins] 09-03-2022 Episodic Other hematologic conditions (3 sources) Other specified abnormalities of plasma proteins; Translations: [Other abnormal blood chemistry] 09-03-2022 Episodic Other lower respiratory disease (18 sources) Dyspnea on exertion; Translations: [Shortness of breath] 09-03-2022 Episodic Other lower respiratory disease (14 sources) Cough; Translations: [Cough] 03-04-2018 Episodic Other lower respiratory disease (11 sources) Restrictive lung disease; Translations: [Other disorders of lung] 03-04-2018 Episodic Comment on above: mild Other lower respiratory disease (7 sources) Hypoxemia; Translations: [Hypoxemia] 09-03-2022 Episodic Other lower respiratory disease (3 sources) Other forms of dyspnea; Translations: [Other respiratory abnormalities] 09-03-2022 Episodic Other lower respiratory disease (3 sources) Hypoxemia; Translations: [Hypoxemia] 09-03-2022 Episodic Other lower respiratory disease (3 sources) H/O: asthma; Translations: [Personal history of other diseases of the respiratory system] 08-05-2024 Episodic Other nervous system disorders (1 source) Unsteadiness on feet; Translations: [Unsteadiness on feet] Onset: Episodic Other upper respiratory disease (11 sources) Allergic rhinitis; Translations: [Allergic rhinitis, unspecified] 03-04-2018 Chronic Phlebitis; thrombophlebitis and thromboembolism (7 sources) Deep venous thrombosis; Translations: [Acute embolism and thrombosis of unspecified deep veins of unspecified lower extremity] 09-04-2022 Episodic Pulmonary heart disease (7 sources) Pulmonary hypertension; Translations: [Pulmonary hypertension, unspecified] 09-06-2022 Chronic Pulmonary heart disease (9 sources) Pulmonary embolism; Translations: [Other pulmonary embolism without acute cor pulmonale] 09-03-2022 Episodic Residual codes; unclassified (12 sources) Obstructive sleep apnea syndrome; Translations: [Obstructive sleep apnea (adult) (pediatric)] 03-04-2018 Chronic Comment on above: CPAP 11 cmH2O Residual codes; unclassified (11 sources) Daytime hypersomnia; Translations: [Hypersomnia, unspecified] 03-04-2018 Chronic Comment on above: concern for sleep ap yaneth napping 1-2 hours couple times per week. Residual codes; unclassified (4 sources) Obstructive sleep apnea (adult) (pediatric); Translations: [Obstructive sleep apnea (adult)(pediatric)] 07-31-2022 Chronic Residual codes; unclassified (11 sources) History of nasal sinus surgery; Translations: [Other specified postprocedural states] 06-25-2019 Episodic Residual codes; unclassified (2 sources) Memory impairment; Translations: [Other amnesia] 10-22-2024 Episodic Respiratory failure; insufficiency; arrest (adult) (8 sources) Acute respiratory failure; Translations: [Acute respiratory failure with hypoxia] 09-05-2022 Episodic Spondylosis; intervertebral disc disorders; other back problems (11 sources) Degeneration of intervertebral disc; Translations: [Degeneration of intervertebral disc] 06-08-2019 Chronic Comment on above: C-Spine Syncope (11 sources) Syncope and collapse; Translations: [Syncope and collapse] 03-04-2018 Episodic Unclassified (2 sources) Influenza vaccination ; Translations: [Encounter for immunization] Onset: 06-12-2017 Unclassified (2 sources) No current problems or disability 06-11-2017 Urinary tract infections (1 source) Urinary tract infection, site not specified; Translations: [Urinary tract infection, site not specified] Onset: Episodic Past or Other Problems Problem Classification Problem Date Documented Da te Episodic/Chronic Chronic obstructive pulmonary disease and bronchiectasis (1 source) Bronchitis, not specified as acute or chronic; Translations: [Bronchitis, not specified as acute or chronic] Onset: 08-20-2024 Episodic Other lower respiratory disease (2 sources) Wheezing; Translations: [Wheezing] Onset: 06-12-2017 06-12-2017 Episodic Other screening for suspected conditions (not mental disorders or infectious disease) (1 source) Abnormal finding of blood chemistry, unspecified; Translations: [Abnormal finding of blood chemistry, unspecified] Onset: 08-18-2024 Episodic Unclassified (11 sources) ankle surgery 06-08-2019 Unclassified (8 sources) Hypogonadism; Translations: [Hypogonadism] 06-08-2019 Unclassified (5 sources) Onset: 09-27-2023 Resolved: 11-29-2023 09-27-2023 Results Test Name Value Interpretation Reference Range Facility Anion gap in Serum or Plasma Ordered By: Gladis Nava on 11-16-2024 Anion gap [Moles/Vol] 12 mmol/L 5- [facility] BUN/creatinine ratioOrdered By: Gladis Nava on 11-16-2024 Urea nitrogen/Creatinine [Mass ratio] 15.7 mg/mg 10- [facility] Bilirubin, totalOrdered By: Gladis Nava on 11-16-2024 Bilirubin [Mass/Vol] 0.59 mg/dL 0.00-1.30 [facility] Carbon dioxide, total [Moles /volume] in Central venous bloodOrdered By: Gladis Nava on 11-16-2024 CO2 [Moles/Vol] 21.8 mmol/L 21.0-32.0 [facility] Chloride assayOrdered By: Robert Nava on 11-16-2024 Chloride [Moles/Vol] 102 mmol/L 98-108 [facility] Comprehensive Metabolic Prof ilon 11-16-2024 Albumin [Mass/Vol] 4.2 g/dL Normal 3.4-4.8 [facility] Comment on above: Order Comment: Order Date: 08/10/24 Order Info: 0667-1 - BMP Order Date: 08/13/24 Order Info: 0786-1 - CMP Order Info: 3016-3 - TSH Performed By: #### L [id number], L501.9985, L100.0100, L501.1200, L400.0001, L500.4050, L502.0500 #### [facility] [address] [place], [place], [id number] Albumin/Globulin [Mass ratio] 1.3 {ratio} Normal 0.9-2.4 [facility] Comment on above: Order Comment: Order Date: 08/10/24 Order Info: 0667-1 - BMP Order Date: 08/13/24 Order Info: 0786-1 - CMP Order Info: 3016-3 - TSH Performed By: #### L [id number], L501.9985, L100.0100, L501.1200, L400.0001, L500.4050, L502.0500 #### [facility] [address] [place], [address] ALK PHOS 51 U/L Normal 40-129 [facility] Comment on above: Order Comment: Order Date: 08/10/24 Order Info: 0667-1 - BMP Order Date: 08/13/24 Order Info: 0786-1 - CMP Order Info: 3015-3 - TSH Performed By: #### L [id number], L501.9985, L100.0100, L501.1200, L400.0001, L500.4050, L502.0500 #### [facility] [address] [place], [place], [id number] ALT [Catalytic activity/Vol] 12 U/L Normal <=46 [facility] Comment on above: Order Comment: Order Date: 08/10/24 Order Info: 0667-1 - BMP Order Date: 08/13/24 Order Info: 0786-1 - CMP Order Info: 3 - TSH Performed By: #### L [id number], L501.9985, L100.0100, L501.1200, L400.0001, L500.4050, L502.0500 #### [facility] [address] [place], [place], [id number] AST [Catalytic activity/Vol] 15 U/L Normal <=37 [facility] Comment on above: Order Comment: Order Date: 08/10/24 Order Info: 0667-1 - BMP Order Date: 08/13/24 Order Info: 0786-1 - CMP Order Info: 3013 - TSH Performed By: #### L [id number], L501.9985, L100.0100, L501.1200, L400.0001, L500.4050, L502.0500 #### [facility] [address] [place], [place], [id number] Bilirubin [Mass/Vol] 0.59 mg/dL Normal 0.00-1.30 [facility] Comment on above: Order Comment: Order Date: 08/10/24 Order Info: 67-1 - BMP Order Date: 08/13/24 Order Info: 785-07 - CMP Order Info: 3 - TSH Performed By: #### L [id number], L501.9985, L100.0100, L501.1200, L400.0001, L500.4050, L502.0500 #### [facility] [address] [place], [address] BUN/CRE 15.7 RATIO Normal 10-20 [facility] Comment on above: Order Comment: Order Date: 08/10/24 Order Info: 666-07 - BMP Order Date: 08/13/24 Order Info: 785-07 - CMP Order Info: 3015-09 - TSH Performed By: #### L 501.9520, L501.9985, L100.0100, L501.1200, L400.0001, L500.4050, L502.0500 #### [facility] [address] [place], [place], [id number] Calcium [Mass/Vol] 9.2 mg/dL Normal 7.6-11.0 [facility] Comment on above: Order Comment: Order Date: 08/10/24 Order Info: 67- - BMP Order Date: 08/13/24 Order Info: 0786 - CMP Order Info: 3 - TSH Performed By: #### L [id number], L501.9985, L100.0100, L501.1200, L400.0001, L500.4050, L502.0500 #### [facility] [address] [place], [address] Chloride [Moles/Vol] 102 mmol/L Normal 98-108 [facility] Comment on above: Order Comment: Order Date: 08/10/24 Order Info: 0667- - BMP Order Date: 08/13/24 Order Info: 07- - CMP Order Info: 3016-3 - TSH Performed By: #### L [id number], L501.9985, L100.0100, L501.1200, L400.0001, L500.4050, L502.0500 #### [facility] [address] [place], [place], [address] CO2 [Moles/Vol] 21.8 mmol/L Normal 21.0-32.0 [facility] Comment on above: Order Comment: Order Date: 08/10/24 Order Info: 0667-1 - BMP Order Date: 08/13/24 Order Info: 0786-1 - CMP Order Info: 3015-09 - TSH Performed By: #### L 501.9520, L501.9985, L100.0100, L501.1200, L400.0001, L500.4050, L502.0500 #### [facility] [address] [place], [place], [id number] Creatinine [Mass/Vol] 1.20 mg/dL Normal 0.70-1.20 [facility] Comment on above: Order Comment: Order Date: 08/10/24 Order Info: 0667-1 - BMP Order Date: 08/13/24 Order Info: 0786-1 - CMP Order Info: 3015-09 - TSH Performed By: #### L 501.9520, L501.9985, L100.0100, L501.1200, L400.0001, L500.4050, L502.0500 #### [facility] [address] [place], [address] GAP 12 Normal 5-15 [facility] Comment on above: Order Comment: Order Date: 08/10/24 Order Info: 0667-1 - BMP Order Date: 08/13/24 Order Info: 0786-1 - CMP Order Info: 3015-09 - TSH Performed By: #### L 501.9520, L501.9985, L100.0100, L501.1200, L400.0001, L500.4050, L502.0500 #### [facility] [address] [place], [place], [address] GFR/1.73 sq M.predicted among non-blacks MDRD (S/P/Bld) [Vol rate/Area] 59 mL/min/{1.73_m2} Low >60 [facility] Comment on above: Order Comment: Order Date: 08/10/24 Order Info: 0667-1 - BMP Order Date: 08/13/24 Order Info: 0786- - CMP Order Info: 3016-3 - TSH Result Comment: mL/m in/1.73m2 CKD-EPI Creatinine Equation (2020) Performed By: #### L [id number], L501.9985, L100.0100, L501.1200, L400.0001, L500.4050, L502.0500 #### [facility] [address] [place], [place], [id number] Globulin (S) [Mass/Vol] 3.3 g/dL Normal 2.2-4.2 [facility] Comment on above: Order Comment: Order Date: 08/10/24 Order Info: 0667- - BMP Order Date: 08/13/24 Order Info: 0786- - [facility] Order Info: 3016 - TSH Performed By: #### L [id number], L501.9985, L100.0100, L501.1200, L400.0001, L500.4050, L502.0500 #### [facility] [address] [facility] [place], [address] Glucose [Mass/Vol] 119 mg/dL High 70-99 [facility] Comment on above: Order Comment: Order Date: 08/10/24 Order Info: 0667- - BMP Order Date: 08/13/24 Order Info: 0786- - [facility] Order Info: 30163 - TSH Performed By: #### L 501.9520, L501.9985, L100.0100, L501.1200, L400.0001, L500.4050, L502.0500 #### [facility] [address] [place], [address] Potassium [Moles/Vol] 4.4 mmol/L Normal 3.3-5.1 [facility] Comment on above: Order Comment: Order Date: 08/10/24 Order Info: 0667-1 - BMP Order Date: 08/13/24 Order Info: 0786-1 - CMP Order Info: 3016-3 - TSH Performed By: #### L 501.9520, L501.9985, L100.0100, L501.1200, L400.0001, L500.4050, L502.0500 #### [facility] [address] [place], [address] Sodium [Moles/Vol] 136 mmol/L Normal 133-145 [facility] Comment on above: Order Comment: Order Date: 08/10/24 Order Info: 0667-1 - BMP Order Date: 08/13/24 Order Info: 0786-1 - CMP Order Info: 3016-3 - TSH Performed By: #### L 501.9520, L501.9985, L100.0100, L501.1200, L400.0001, L500.4050, L502.0500 #### [facility] [address] [place], [address] T PROT 7.5 g/dL Normal 5.9-8.4 [facility] Comment on above: Order Comment: Order Date: 08/10/24 Order Info: 0667-1 - BMP Order Date: 08/13/24 Order Info: 0786-1 - [facility] Order Info: 3016-3 - TSH Performed By: #### L 501.9520, L501.9985, L100.0100, L501.1200, L400.0001, L500.4050, L502.0500 #### [facility] [address] [place], [address] Urea nitrogen [Mass/Vol] 19 mg/dL Normal 4-19 [facility] Comment on above: Order Comment: Order Date: 08/10/24 Order Info: 0667-1 - BMP Order Date: 08/13/24 Order Info: 0786-1 - CMP Order Info: 3016-3 - TSH Performed By: #### L 501.9520, L501.9985, L100.0100, L501.1200, L400.0001, L500.4050, L502.0500 #### [facility] [address] [place], [address] Glomerular filtration rate ( GFR) estimation/1.73 sq m using serum, plasma, or whole bOrdered By: Gladis Nava on 11-16-2024 GFR/1.73 sq M.predicted among non-blacks MDRD (S/P/Bld) [Vol rate/Area] 59 mL/min/{1.73_m2} Low >60 [facility] Comment on above: mL/min/1.73m2 CKD-EP I Creatinine Equation (2020) Hemoglobin A1con 11-16-2024 HbA1c (Bld) [Mass fraction] 6.6 % High <=5.6 [facility] Comment on above: Order Comment: Order Date: 08/10/24 Order Info: 0667-1 - BMP Order Date: 08/13/24 Order Info: 0786-1 - CMP Order Info: 3016-3 - TSH Result Comment: Norm al < 5.7 % Prediabetic 5.7 - 6.4 % Diabetic >or= 6.5 % Please note range changes. Performed By: #### L [id number], L501.9985, L100.0100, L501.1200, L400.0001, L500.4050, L502.0500 #### [facility] [address] [place], [place], [id number] Hemoglobin A1c percentageOrd ered By: Gladis Nava on 11-16-2024 HbA1c (Bld) [Mass fraction] 6.6 % High <5.7 [facility] Comment on above: Normal < 5.7 % Predi abetic 5.7 - 6.4 % Diabetic >or= 6.5 % Please note range changes. Laboratory - Chemistry and C hemistry - challengeOrdered By: Gladis Nava on 11-16-2024 AST [Catalytic activity/Vol] 15 U/L <38 [facility] Microalb:Creat Ratio,Random URon 11-16-2024 Creatinine [Mass/Vol] 129.00 mg/dL Normal 39.00-259.00 [facility] Comment on above: Order Comment: Order Date: 08/10/24 Order Info: 0667-1 - BMP Order Date: 08/13/24 Order Info: 0786-1 - CMP Order Info: 3 - TSH Performed By: #### L [id number], L501.9985, L100.0100, L501.1200, L400.0001, L500.4050, L502.0500 #### [facility] [address] [place], [place], [id number] MALB:CREAT UNABLE TO CALCULATE Normal [facility] Comment on above: Order Comment: Order Date: 08/10/24 Order Info: 0667-1 - BMP Order Date: 08/13/24 Order Info: 0786-1 - CMP Order Info: 3015-09 - TSH Performed By: #### L 501.9520, L501.9985, L100.0100, L501.1200, L400.0001, L500.4050, L502.0500 #### [facility] [address] [place], [place], [id number] MICROALBUMIN,UR < 12.0 Normal NO RANGE EST. [facility] Comment on above: Order Comment: Order Date: 08/10/24 Order Info: 0667-1 - BMP Order Date: 08/13/24 Order Info: 0786-1 - CMP Order Info: 3013 - TSH Performed By: #### L 501.9520, L501.9985, L100.0100, L501.1200, L400.0001, L500.4050, L502.0500 #### [facility] [address] [place], [place], [id number] Microalbumin/creat ratio urO rdered By: Gladis Nava on 11-16-2024 Urine microalbumin/creatinine ratio measurement UNABLE TO CALCULATE mg/g CRE [facility] Potassium measurement (mass/ volume)Ordered By: Gladis Nava on 11-16-2024 Potassium (Unsp spec) [Mass/Vol] 4.4 mmol/L 3.3-5.1 [facility] Random urine creatinine alisson urement (mass/volume)Ordered By: Gladis Nava on 11-16-2024 Creatinine Unsp time (U) [Mass/Vol] 129.00 mg/dL 39.00-259.00 [facility] Serum creatinine measurement (mass/volume)Ordered By: Gladis Nava on 11-16-2024 Creatinine [Mass/Vol] 1.20 mg/dL 0.70-1.20 [facility] Serum globulin measurementOr dered By: Gladis Nava on 11-16-2024 Globulin (S) [Mass/Vol] 3.3 g/dL 2.2-4.2 [facility] Serum glucose measurement (m ass/volume)Ordered By: Gladis Nava on 11-16-2024 Glucose [Mass/Vol] 119 mg/dL High 70-99 [facility] Serum or plasma alanine chawla otransferase (ALT) measurementOrdered By: Gladis Nava on 11-16-2024 ALT [Catalytic activity/Vol] 12 U/L <47 [facility] Serum or plasma albumin alisson urement (mass/volume)Ordered By: Gladis Nava on 11-16-2024 Albumin [Mass/Vol] 4.2 g/dL 3.4-4.8 [facility] Serum or plasma albumin/glob ulin mass ratioOrdered By: Gladis Nava on 11-16-2024 Albumin/Globulin [Mass ratio] 1.3 {ratio} 0.9-2.4 [facility] Serum or plasma alkaline sukh sphatase measurementOrdered By: Gladis Nava on 11-16-2024 ALP [Catalytic activity/Vol] 51 U/L 40-129 [facility] Serum or plasma calcium alisson urement (mass/volume)Ordered By: Gladis Nava on 11-16-2024 Calcium [Mass/Vol] 9.2 mg/dL 7.6-11.0 [facility] Serum or plasma urea nitroge n measurement (mass/volume)Ordered By: Gladis Nava on 11-16-2024 Urea nitrogen [Mass/Vol] 19 mg/dL 4-19 [facility] Sodium levelOrdered By: Gladis Nava on 11-16-2024 Sodium [Moles/Vol] 136 mmol/L 133-145 [facility] Total proteinOrdered By: Danika Nava on 11-16-2024 Protein [Mass/Vol] 7.5 g/dL 5.9-8.4 [facility] Urine albumin measurement [facility] detection limit of 20 mg/L or less (mass/volume)Ordered By: Gladis Nava on 11-16-2024 Albumin DL <= 20 mg/L (U) [Mass/Vol] < 12.0 mg/L NO RANGE EST. [facility] Pulmonary Visit Reporton Pulmonary Visit Report [facility] of [address] [place] [address] OFFICE VISIT Date of Service: 10/21/24 MR#: [id number] Acct: [id number] Name: CINDY COTSA Rep #: [id number] : 1940 Provider: MARIA DE JESUS Flores Age/Sex: 84/M [place] [facility] [place] Status: Signed Assessment and Plan Assessment and Plan (1) Irregular heart rhythm: Status: Acute Plan: New. The patient reports that he has never been told he had an irregular heart rhythm. He denies any increase in shortness of breath. He is not experiencing any chest tightness or chest pain. We did contact his primary care provider and notified him of the exam findings. I advised the patient if he should experience any chest pain that he should call the emergency squad to be evaluated in the emergency department. His conveys understanding. The patient previously had a pulmonary embolism and was anticoagulated, however he is no longer on anticoagulation. (2) Asthma: Status: Chronic Qualifiers: Asthma severity: moderate Asthma persistence: persistent Asthma complication type: with acute exacerbation Qualified Code(s): J45.41 - Moderate persistent asthma with (acute) exacerbation Plan: Stable, no signs of exacerbation of asthma today. No change in maintenance medications. No additional testing at this time. Contact the office with any signs of new or worsening symptoms. Follow-up in 3 months. (3) FREDI (obstructive sleep apnea): Status: Chronic Comment: CPAP 11 cmH2O Plan: Stable, he is using and benefiting from Pap therapy. No indication for titration study at this time. Contact the office for any new or worsening symptoms in the meantime. Follow-up in 3 months. (4) Memory impairment: Status: Acute Plan: New. The patient does not seem to be as reliable historian today as noted on previous office visits. It is unclear if this is some sign of early dementia. He does not seem to have any unilateral muscle weakness. I will defer further workup to his primary care provider. Plan Details Follow Up: 3 Months ([facility]) HPI 1 Y FU Chief Complaint: wheeze HPI Comments Details: This patient presents to the office today for follow-up of his asthma and obstructive sleep apnea. He is ambulatory and currently on room air. He is accompanied today by his . He has not been seen in the ED or urgent care for any respiratory illness since his last office visit. He has not required any antibiotics or prednisone for any breathing problems. He is compliant with Wixela twice daily. He does report rinsing his mouth out after each use. He denies any medication side effects such as sore throat or thrush. He denies any difficulty with shortness of breath. He denies any cough, sputum production or hemoptysis. Does not have any wheezing, chest tightness, chest pain or palpitations. He also denies any fever, chills or body aches. He wakes up feeling rested and refreshed with the use of his PAP device. He is not having excessive nocturia. He is not requiring naps. He is not having morning headaches. He denies any difficulty with dry mouth or mask leaks. Compliance report for the past 30 days shows 97% compliance with an average use of 7 hours and 8 minutes per night. Current setting is a CPAP of 11 cm of water with a residual AHI of 0.8 events per hour. Leaks do not appear to be problematic. Intake Vital Signs 10/16/23 08:48 10/21/24 08:09 Height 6 ft 4 in 6 ft 4 in Weight: 243 lb BMI 29.5 BP 150/87 H Blood Pressure Location Lt brachial Position Sitting Respiration 20 H Pulse 98 Pulse Source Monitor Temp 98.0 F Temperature Source Temporal Artery Pulse Oximetry (%) 95 Oxygen Delivery Method room air Intake Visit Reasons: 1 Y FU Chief Complaint: Daytime somnolence and cough Hand Driller Required: No DME Vendor: [employer] Accompanied by: Allergies azithromycin Allergy (Verified 10/21/24 15:26) unknown ciprofloxacin (From Cipro) Allergy (Verified 10/21/24 15:26) confusion Environmental Allergies: Uncoded Allergy (Verified 10/21/24 15:26) NEEDS FOLLOW-UP Medications ???Medication ???Instructions ???Recorded ???Confirmed ???Type ferrous sulfate 325 mg (65 mg 325 mg PO DAILY #90 tabs 03/04/18 10/21/24 Rx iron) tablet fluticasone propionate 50 2 spray intranasal DAILY #16 grams 01/14/23 10/21/24 Rx mcg/actuation nasal spray,suspension ramipril 2.5 mg capsule 2.5 mg PO DAILY 01/14/23 10/21/24 History albuterol sulfate 90 mcg/actuation 2 puff inhalation Q4H PRN 10/21/24 Rx aerosol inhaler shortness of breath or wheezing #8.5 grams fluticasone 500 mcg-salmeterol 50 1 inh inhalation BID #60 ea 09/2410/21/24 Rx mcg/dose blistr powdr for inhalation (Wixela Inhub) dapagliflozin propan (more content not included)... Normal [facility] PT D/C Summary (1)on 025 PT D/C Summary (1) [facility] [place] [address] / REHABILITATION SERVICES DISCHARGE SUMMARY MR#: [id number] Acct: [id number] Name: CINDY COSTA Rep #: [id number] : 1940 84 From: Gladis Jones DPT, OCS, CSCS Referring Dr.: Dr. Gladis Nava MD Status: REG R CR Insurance: [employer]URANCE Discharge Summary D/C summary: It has been my pleasure to treat CINDY COSTA referred by Dr. Gladis Nava MD, with the diagnosis of gait instability for a total of 13 visit(s). Discharge Date: Please see the following information for a summary of their discharge status. Subjective Subjective: I am doing well. I feel good walking at home. No falls. Balance feels pretty good. Activities pretty normal at home. Basic ADLs are I. HEP going well. Doing well with home exercises. Using wh walker as needed at home. Steps at home yesterday and every other day. Overall Improvement % Improvement: 80 Objective Objective/Function: FGa much improved 9 points from day one and 3 points over last 3 weeks, still needing UE to exit chair, two rails on steps and lacks FW weight shift. Ready to be on hos own vs wanting more theerapy. Goals Goal 1:: FGA to limit fall risk Goal Progress: Goal Met Goal 2:: I use of appropriate AD to limit future fall risk Goal Progress: Goal Met Goal 3:: I apporpriate strength and weight shift program at home HEP Goal Progress: Goal Met Goal 4:: steps reciprocally with one rail with good forward weight shift Goal Progress: 2 rails Goal 5:: exit chair without UE I Goal Progress: neds UEE Goal 6:: 40 LEFS Goal Progress: Goal Met Plan Plan: d/c D/C Information d/c sentence: If there are questions or concerns regarding this patient's physical therapy, please feel free to call me at [phone]. Thank you for the referral of this patient. Sincerely, Gladis Jones, DPT, OCS, CSCS Balance/Gait/Functional tests Balance/Special Test Scores Functional Gait Assessment Score: 23 % Disability: 23.3400 CATSIB Score (Max score 120 seconds): 62 Lower Extremity Functional Score: 70 Improvement % Improvement: 80 10/01/24 1202 CC: Dr. Gladis Nava MD EBG Signed Normal [facility] Absolute lymphocyte countOrd ered By: Gladis Nava on 09-10-2024 Lymphocytes Auto (Unsp spec) [#/Vol] 0.84 10*3/uL 0.83-4.51 [facility] Absolute neutrophil countOrd ered By: Gladis Nava on 09-10-2024 Neutrophils (Bld) [#/Vol] 6.0 10*3/uL 2.0-7.7 [facility] Albumin DL <= 20 mg/L (U) [M ass/Vol]Ordered By: Gladis Nava on 09-10-2024 Urine Random Microalbumin < 12.0 mg/L NO RANGE EST. [facility] Automated lymphocyte count a s percentage of total leukocytesOrdered By: Gladis Nava on 09-10-2024 Lymphocytes/100 WBC Auto (Unsp spec) 11.0 % Low 19- [facility] BUN/creatinine ratioOrdered By: Gladis Nava on 09-10-2024 Urea nitrogen/Creatinine [Mass ratio] 17.4 mg/mg 10- [facility] Basophil percentageOrdered B y: Gladis Nava on 09-10-2024 Basophils/100 WBC (Bld) 0.5 % 0-1 [facility] Bilirubin, totalOrdered By: Gladis Nava on 09-10-2024 Bilirubin [Mass/Vol] 0.55 mg/dL 0.00-1.30 [facility] CBC W/Diff, Automatedon 08-16 Absolute Lymph 0.84 X10 3/uL Normal 0.83-4.51 [facility] Comment on above: Order Comment: Order Date: 08/10/24 Order Info: 0667-1 - BMP Order Date: 08/13/24 Order Info: 0786-1 - CMP Order Info: 3016-3 - TSH Performed By: #### L 501.9520, L501.9985, L100.0100, L501.1200, L400.0001, L500.4050, L502.0500 #### [facility] [address] [place], [place], [id number] Absolute Neut 6.0 X10 3/uL Normal 2.0-7.7 [facility] Comment on above: Order Comment: Order Date: 08/10/24 Order Info: 0667-1 - BMP Order Date: 08/13/24 Order Info: 0786-1 - CMP Order Info: 3016-3 - TSH Performed By: #### L 501.9520, L501.9985, L100.0100, L501.1200, L400.0001, L500.4050, L502.0500 #### [facility] [address] [place], [place], [phone] Basophils/100 WBC (Bld) 0.5 % Normal 0-1 [facility] Comment on above: Order Comment: Order Date: 08/10/24 Order Info: 0667-1 - BMP Order Date: 08/13/24 Order Info: 0786-1 - CMP Order Info: 3016-3 - TSH Performed By: #### L 501.9520, L501.9985, L100.0100, L501.1200, L400.0001, L500.4050, L502.0500 #### [facility] [address] [place], [address] Eosinophils/100 WBC (Bld) 0.7 % Normal 0-5 [facility] Comment on above: Order Comment: Order Date: 08/10/24 Order Info: 0667-1 - BMP Order Date: 08/13/24 Order Info: 0786-1 - CMP Order Info: 3016-3 - TSH Performed By: #### L 501.9520, L501.9985, L100.0100, L501.1200, L400.0001, L500.4050, L502.0500 #### [facility] [address] [place], [place], [phone] Erythrocyte distribution width (RBC) [Ratio] 13.4 % Normal 11.6-14.6 [facility] Comment on above: Order Comment: Order Date: 08/10/24 Order Info: 0667-1 - BMP Order Date: 08/13/24 Order Info: 0786-1 - CMP Order Info: 3016-3 - TSH Performed By: #### L 501.9520, L501.9985, L100.0100, L501.1200, L400.0001, L500.4050, L502.0500 #### [facility] [address] [place], [place], [phone] Hematocrit (Bld) [Volume fraction] 44.1 % Normal 40-54 [facility] Comment on above: Order Comment: Order Date: 08/10/24 Order Info: 0667-1 - BMP Order Date: 08/13/24 Order Info: 0786-1 - [facility] Order Info: 30163 - TSH Performed By: #### L 501.9520, L501.9985, L100.0100, L501.1200, L400.0001, L500.4050, L502.0500 #### [facility] [address] [place], [address] Hemoglobin (Bld) [Mass/Vol] 14.3 g/dL Normal 13.0-16.5 [facility] Comment on above: Order Comment: Order Date: 08/10/24 Order Info: 666- - BMP Order Date: 08/13/24 Order Info: 0786-1 - [facility] Order Info: 30163 - TSH Performed By: #### L 501.9520, L501.9985, L100.0100, L501.1200, L400.0001, L500.4050, L502.0500 #### [facility] [address] [place], [address] IG% 0.400 Normal 0.0-0.9 [facility] Comment on above: Order Comment: Order Date: 08/10/24 Order Info: 0667-1 - BMP Order Date: 08/13/24 Order Info: 0786-1 - [facility] Order Info: 3016-3 - TSH Result Comment: IG% - Immature Granulocytes (promyelocytes, myelocytes and metamyelocytes) > 1% indicates that a LEFT SHIFT is Present. Performed By: #### L 501.9520, L501.9985, L100.0100, L501.1200, L400.0001, L500.4050, L502.0500 #### [facility] [address] [place], [address] Lymphocytes/100 WBC (Bld) 11.0 % Low 19-41 [facility] Comment on above: Order Comment: Order Date: 08/10/24 Order Info: 0667- - [facility] Order Date: 08/13/24 Order Info: 0786- - [facility] Order Info: 3 - TSH Performed By: #### L 501.9520, L501.9985, L100.0100, L501.1200, L400.0001, L500.4050, L502.0500 #### [facility] [address] [place], [address] MCH (RBC) [Entitic mass] 30.2 pg Normal 27.0-32.0 [facility] Comment on above: Order Comment: Order Date: 08/10/24 Order Info: 06- - BMP Order Date: 08/13/24 Order Info: 785-07 - [facility] Order Info: 3 - TSH Performed By: #### L 501.9520, L501.9985, L100.0100, L501.1200, L400.0001, L500.4050, L502.0500 #### [facility] [address] [place], [address] MCHC (RBC) [Mass/Vol] 32.4 g/dL Normal 32-36 [facility] Comment on above: Order Comment: Order Date: 08/10/24 Order Info: 0667- - BMP Order Date: 08/13/24 Order Info: 0786 - [facility] Order Info: 3015-09 - TSH Performed By: #### L 501.9520, L501.9985, L100.0100, L501.1200, L400.0001, L500.4050, L502.0500 #### [facility] [address] [place], [address] MCV (RBC) [Entitic vol] 93.2 fL Normal 80-94 [facility] Comment on above: Order Comment: Order Date: 08/10/24 Order Info: 0667-1 - BMP Order Date: 08/13/24 Order Info: 0786-1 - CMP Order Info: 3 - TSH Performed By: #### L 501.9520, L501.9985, L100.0100, L501.1200, L400.0001, L500.4050, L502.0500 #### [facility] [address] [place], [address] Monocytes/100 WBC (Bld) 8.9 % Normal 0-10 [facility] Comment on above: Order Comment: Order Date: 08/10/24 Order Info: 0667-1 - BMP Order Date: 08/13/24 Order Info: 0786-1 - CMP Order Info: 3 - TSH Performed By: #### L 501.9520, L501.9985, L100.0100, L501.1200, L400.0001, L500.4050, L502.0500 #### [facility] [address] [place], [address] Neutrophils/100 WBC (Bld) 78.5 % High 47-70 [facility] Comment on above: Order Comment: Order Date: 08/10/24 Order Info: 0667-1 - BMP Order Date: 08/13/24 Order Info: 0786-1 - CMP Order Info: 3013 - TSH Performed By: #### L 501.9520, L501.9985, L100.0100, L501.1200, L400.0001, L500.4050, L502.0500 #### [facility] [address] [place], [address] Nucleated RBC (Bld) [#/Vol] 0 10*3/uL Normal 0-5 [facility] Comment on above: Order Comment: Order Date: 08/10/24 Order Info: 0667-1 - BMP Order Date: 08/13/24 Order Info: 0786-1 - CMP Order Info: 3013 - TSH Performed By: #### L 501.9520, L501.9985, L100.0100, L501.1200, L400.0001, L500.4050, L502.0500 #### [facility] [address] [place], [address] Platelet mean volume (Bld) [Entitic vol] 9.2 fL Normal 6.2-12.0 [facility] Comment on above: Order Comment: Order Date: 08/10/24 Order Info: 0667-1 - BMP Order Date: 08/13/24 Order Info: 0786-1 - CMP Order Info: 3013 - TSH Performed By: #### L 501.9520, L501.9985, L100.0100, L501.1200, L400.0001, L500.4050, L502.0500 #### [facility] [address] [place], [address] Platelets (Bld) [#/Vol] 316 10*3/uL Normal 150-450 [facility] Comment on above: Order Comment: Order Date: 08/10/24 Order Info: 666- - BMP Order Date: 08/13/24 Order Info: 0786- - CMP Order Info: 3015-09 - TSH Performed By: #### L 501.9520, L501.9985, L100.0100, L501.1200, L400.0001, L500.4050, L502.0500 #### [facility] [address] [place], [address] RBC (Bld) [#/Vol] 4.73 10*6/uL Normal 4.6-6.[address] [facility] Comment on above: Order Comment: Order Date: 08/10/24 Order Info: 0667- - BMP Order Date: 08/13/24 Order Info: 0786-1 - [facility] Order Info: 30112-15 - TSH Performed By: #### L 501.9520, L501.9985, L100.0100, L501.1200, L400.0001, L500.4050, L502.0500 #### [facility] [address] [place], [address] RDW SD 45.5 fl High 35.1-43.9 [facility] Comment on above: Order Comment: Order Date: 08/10/24 Order Info: 0667- - BMP Order Date: 08/13/24 Order Info: 785-07 - CMP Order Info: 3015-09 - TSH Performed By: #### L 501.9520, L501.9985, L100.0100, L501.1200, L400.0001, L500.4050, L502.0500 #### [facility] [address] [place], [place], [id number] WBC (Bld) [#/Vol] 7.7 10*3/uL Normal 4.4-11.0 [facility] Comment on above: Order Comment: Order Date: 08/10/24 Order Info: 666-07 - BMP Order Date: 08/13/24 Order Info: 785-07 - CMP Order Info: 3015-09 - TSH Performed By: #### L 501.9520, L501.9985, L100.0100, L501.1200, L400.0001, L500.4050, L502.0500 #### [facility] [address] [place], [place], [id number] Carbon dioxide measurementOr dered By: Gladis Nava on 09-10-2024 CO2 [Moles/Vol] 23.7 mmol/L 22.0-29.0 [facility] Chloride measurementOrdered By: Gladis Nava on 09-10-2024 Chloride [Moles/Vol] 104 mmol/L 96-108 [facility] Comprehensive Metabolic Prof ilon 09-10-2024 Albumin [Mass/Vol] 4.3 g/dL Normal 3.4-4.8 [facility] Comment on above: Order Comment: Order Date: 08/10/24 Order Info: 0667- - BMP Order Date: 08/13/24 Order Info: 07 - CMP Order Info: 3015-09 - TSH Performed By: #### L 501.9520, L501.9985, L100.0100, L501.1200, L400.0001, L500.4050, L502.0500 #### [facility] [address] [place], [address] Albumin/Globulin [Mass ratio] 1.3 {ratio} Normal 0.9-2.4 [facility] Comment on above: Order Comment: Order Date: 08/10/24 Order Info: 0667-1 - BMP Order Date: 08/13/24 Order Info: 0786-1 - CMP Order Info: 3016-3 - TSH Performed By: #### L 501.9520, L501.9985, L100.0100, L501.1200, L400.0001, L500.4050, L502.0500 #### [facility] [address] [place], [address] ALK PHOS 64 U/L Normal 40-129 [facility] Comment on above: Order Comment: Order Date: 08/10/24 Order Info: 0667- - BMP Order Date: 08/13/24 Order Info: 86- - CMP Order Info: 3016-3 - TSH Performed By: #### L 501.9520, L501.9985, L100.0100, L501.1200, L400.0001, L500.4050, L502.0500 #### [facility] [address] [place], [address] ALT [Catalytic activity/Vol] 18 U/L Normal <=46 [facility] Comment on above: Order Comment: Order Date: 08/10/24 Order Info: 0667-1 - BMP Order Date: 08/13/24 Order Info: 0786- - CMP Order Info: 3016-3 - TSH Performed By: #### L 501.9520, L501.9985, L100.0100, L501.1200, L400.0001, L500.4050, L502.0500 #### [facility] [address] [place], [address] Anion gap [Moles/Vol] 13 mmol/L Normal 5-15 [facility] Comment on above: Order Comment: Order Date: 08/10/24 Order Info: 0667-1 - BMP Order Date: 08/13/24 Order Info: 07- - CMP Order Info: 3015-09 - TSH Performed By: #### L 501.9520, L501.9985, L100.0100, L501.1200, L400.0001, L500.4050, L502.0500 #### [facility] [address] [place], [place], [id number] AST [Catalytic activity/Vol] 22 U/L Normal <=37 [facility] Comment on above: Order Comment: Order Date: 08/10/24 Order Info: 0667-1 - BMP Order Date: 08/13/24 Order Info: 07 - [facility] Order Info: 3015-09 - TSH Performed By: #### L 501.9520, L501.9985, L100.0100, L501.1200, L400.0001, L500.4050, L502.0500 #### [facility] [address] [place], [place], [phone] Bilirubin [Mass/Vol] 0.55 mg/dL Normal 0.00-1.30 [facility] Comment on above: Order Comment: Order Date: 08/10/24 Order Info: 0667-1 - BMP Order Date: 08/13/24 Order Info: 0786 - [facility] Order Info: 3015-09 - TSH Performed By: #### L 501.9520, L501.9985, L100.0100, L501.1200, L400.0001, L500.4050, L502.0500 #### [facility] [address] [place], [place], [address] BUN/CRE 17.4 RATIO Normal 10-20 [facility] Comment on above: Order Comment: Order Date: 08/10/24 Order Info: 0667-1 - BMP Order Date: 08/13/24 Order Info: 0786- - [facility] Order Info: 3 - TSH Performed By: #### L 501.9520, L501.9985, L100.0100, L501.1200, L400.0001, L500.4050, L502.0500 #### [facility] [address] [place], [address] Calcium [Mass/Vol] 9.8 mg/dL Normal 7.6-11.0 [facility] Comment on above: Order Comment: Order Date: 08/10/24 Order Info: 0667-1 - BMP Order Date: 08/13/24 Order Info: 0786-1 - CMP Order Info: 3015-3 - TSH Performed By: #### L 501.9520, L501.9985, L100.0100, L501.1200, L400.0001, L500.4050, L502.0500 #### [facility] [address] [place], [address] Chloride [Moles/Vol] 104 mmol/L Normal 96-108 [facility] Comment on above: Order Comment: Order Date: 08/10/24 Order Info: 0667-1 - BMP Order Date: 08/13/24 Order Info: 0786- - CMP Order Info: 3013 - TSH Performed By: #### L 501.9520, L501.9985, L100.0100, L501.1200, L400.0001, L500.4050, L502.0500 #### [facility] [address] [place], [address] CO2 [Moles/Vol] 23.7 mmol/L Normal 22.0-29.0 [facility] Comment on above: Order Comment: Order Date: 08/10/24 Order Info: 0667-1 - BMP Order Date: 08/13/24 Order Info: 0786-1 - CMP Order Info: 301-3 - TSH Performed By: #### L 501.9520, L501.9985, L100.0100, L501.1200, L400.0001, L500.4050, L502.0500 #### [facility] [address] [place], [address] Creatinine [Mass/Vol] 1.2 mg/dL Normal 0.8-1.3 [facility] Comment on above: Order Comment: Order Date: 08/10/24 Order Info: 0667-1 - BMP Order Date: 08/13/24 Order Info: 0786- - CMP Order Info: 3015-09 - TSH Performed By: #### L 501.9520, L501.9985, L100.0100, L501.1200, L400.0001, L500.4050, L502.0500 #### [facility] [address] [place], [address] GFR/1.73 sq M.predicted among non-blacks MDRD (S/P/Bld) [Vol rate/Area] 61 mL/min/{1.73_m2} Normal >60 [facility] Comment on above: Order Comment: Order Date: 08/10/24 Order Info: 06- - BMP Order Date: 08/13/24 Order Info: 785-07 - [facility] Order Info: 3015-09 - TSH Result Comment: mL/m in/1.73m2 CKD-EPI Creatinine Equation (2020) Performed By: #### L 501.9520, L501.9985, L100.0100, L501.1200, L400.0001, L500.4050, L502.0500 #### [facility] [address] [place], [address] Globulin (S) [Mass/Vol] 3.5 g/dL Normal 2.2-4.2 [facility] Comment on above: Order Comment: Order Date: 08/10/24 Order Info: 0667- - BMP Order Date: 08/13/24 Order Info: 0786 - CMP Order Info: 3015-09 - TSH Performed By: #### L 501.9520, L501.9985, L100.0100, L501.1200, L400.0001, L500.4050, L502.0500 #### [facility] [address] [place], [address] Glucose [Mass/Vol] 131 mg/dL High 70-99 [facility] Comment on above: Order Comment: Order Date: 08/10/24 Order Info: 666- - BMP Order Date: 08/13/24 Order Info: 785-07 - CMP Order Info: 3 - TSH Performed By: #### L 501.9520, L501.9985, L100.0100, L501.1200, L400.0001, L500.4050, L502.0500 #### [facility] [address] [place], [address] Potassium [Moles/Vol] 5.1 mmol/L Normal 3.3-5.1 [facility] Comment on above: Order Comment: Order Date: 08/10/24 Order Info: 666-07 - BMP Order Date: 08/13/24 Order Info: 785-07 - CMP Order Info: 3015-09 - TSH Performed By: #### L 501.9520, L501.9985, L100.0100, L501.1200, L400.0001, L500.4050, L502.0500 #### [facility] [address] [place], [address] Sodium [Moles/Vol] 141 mmol/L Normal 133-145 [facility] Comment on above: Order Comment: Order Date: 08/10/24 Order Info: 666- - BMP Order Date: 08/13/24 Order Info: 0786 - CMP Order Info: 3015-09 - TSH Performed By: #### L 501.9520, L501.9985, L100.0100, L501.1200, L400.0001, L500.4050, L502.0500 #### [facility] [address] [place], [address] T PROT 7.8 g/dL Normal 5.9-8.4 [facility] Comment on above: Order Comment: Order Date: 08/10/24 Order Info: 0667- - BMP Order Date: 08/13/24 Order Info: 07 - CMP Order Info: 3016-3 - TSH Performed By: #### L 501.9520, L501.9985, L100.0100, L501.1200, L400.0001, L500.4050, L502.0500 #### [facility] [address] [place], [address] Urea nitrogen [Mass/Vol] 20 mg/dL High 4-19 [facility] Comment on above: Order Comment: Order Date: 08/10/24 Order Info: 0667-1 - BMP Order Date: 08/13/24 Order Info: 0786-1 - CMP Order Info: 3016-3 - TSH Performed By: #### L 501.9520, L501.9985, L100.0100, L501.1200, L400.0001, L500.4050, L502.0500 #### [facility] [address] [place], [place], [id number] Creatinine Unsp time (U) [Ma ss/Vol]Ordered By: Gladis Nava on 09-10-2024 Creatinine (U) [Mass/Vol] 111.00 mg/dL NO RANGE EST. [facility] Creatinine [Moles/Vol]Ordere d By: Gladis Nava on 09-10-2024 Creatinine [Mass/Vol] 1.2 mg/dL 0.8-1.3 [facility] Eosinophil percentageOrdered By: Gladis Nava on 09-10-2024 Eosinophils/100 WBC (Bld) 0.7 % 0-5 [facility] Erythrocyte distribution wid th ratioOrdered By: Gladis Nava on 09-10-2024 Erythrocyte distribution width (RBC) [Ratio] 13.4 % 11.6-14.6 [facility] Erythrocyte distribution wid th standard deviationOrdered By: Gladis Nava on 09-10-2024 Erythrocyte distribution width (RBC) [Entitic vol] 45.5 fL High 35.1-43.9 [facility] Erythrocyte distribution width (RBC) [Ratio] 45.5 fl High 35.1-43.9 [facility] GFR/1.73 sq M.predicted xander g non-blacks MDRD (S/P/Bld) [Vol rate/Area]Ordered By: Gladis Nava on 09-10-2024 Estimated GFR (MDRD) Non-Af Amer 61 >60 [facility] Comment on above: mL/min/1.73m2 CKD-EP I Creatinine Equation (2020) Glomerular filtration rate ( GFR) estimation/1.73 sq m using serum, plasma, or whole bOrdered By: Gladis Nava on 09-10-2024 GFR/1.73 sq M.predicted among non-blacks MDRD (S/P/Bld) [Vol rate/Area] 61 mL/min/{1.73_m2} >60 [facility] Comment on above: mL/min/1.73m2 CKD-EP I Creatinine Equation (2020) Hematocrit Auto (Bld) [Volum e fraction]Ordered By: Gladis Nava on 09-10-2024 Hematocrit (Bld) [Volume fraction] 44.1 % 40-54 [facility] Hemoglobin measurementOrdere d By: Gladis Nava on 09-10-2024 Hemoglobin (Bld) [Mass/Vol] 14.3 g/dL 13.0-16.5 [facility] Immature granulocytes/100 WB C Auto (Bld)Ordered By: Gladis Nava on 09-10-2024 Immature granulocytes/100 WBC (Bld) 0.400 % 0.0-0.9 [facility] Comment on above: IG% - Immature Granu locytes (promyelocytes, myelocytes and metamyelocytes) > 1% indicates that a LEFT SHIFT is Present. Laboratory - Chemistry and C hemistry - challengeOrdered By: Gladis Nava on 09-10-2024 AST [Catalytic activity/Vol] 22 U/L <38 [facility] Lymphocytes Auto (Unsp spec) [#/Vol]Ordered By: Gladis Nava on 09-10-2024 Lymphocytes (Bld) [#/Vol] 0.84 10*3/uL 0.83-4.51 [facility] Lymphocytes/100 WBC Auto (Un sp spec)Ordered By: Gladis Nava on 09-10-2024 Lymphocytes/100 WBC (Bld) 11.0 % Low 19-41 [facility] MCV (mean corpuscular volume ) determinationOrdered By: Gladis Nava on 09-10-2024 MCV (RBC) [Entitic vol] 93.2 fL 80-94 [facility] Mean corpuscular hemoglobin (MCH) determinationOrdered By: Gladis Nava on 09-10-2024 MCH (RBC) [Entitic mass] 30.2 pg 27.0-32.0 [facility] Mean corpuscular hemoglobin concentration (MCHC) determinationOrdered By: Gladis Nava on 09-10-2024 MCHC (RBC) [Mass/Vol] 32.4 g/dL 32-36 [facility] Mean platelet volume determi nationOrdered By: Gladis Nava on 09-10-2024 Platelet mean volume (Bld) [Entitic vol] 9.2 fL 6.2-12.0 [facility] Microalb:Creat Ratio,Random URon 09-10-2024 MALB:CREAT Normal [facility] Comment on above: Order Comment: Order Date: 08/10/24 Order Info: 0667-1 - BMP Order Date: 08/13/24 Order Info: 0786-1 - CMP Order Info: 3016-3 - TSH Result Comment: UNAB LE TO CALCULATE Performed By: #### L 501.9520, L501.9985, L100.0100, L501.1200, L400.0001, L500.4050, L502.0500 #### [facility] [address] [place], [address] Microalbumin/creat ratio urO rdered By: Gladis Nava on 09-10-2024 Urine Microalbumin/Creatinine Ratio See comment [facility] Comment on above: UNABLE TO CALCULATE Monocyte percentageOrdered B y: Gladis Nava on 09-10-2024 Monocytes/100 WBC (Bld) 8.9 % 0-10 [facility] Neutrophil percentageOrdered By: Gladis Nava on 09-10-2024 Neutrophils/100 WBC (Bld) 78.5 % High 47-70 [facility] Nucleated red blood cell per centageOrdered By: Gladis Nava on 09-10-2024 Nucleated RBC/100 WBC (Bld) [Ratio] 0 % 0-5 [facility] Platelet countOrdered By: Robert Nava on 09-10-2024 Platelets (Bld) [#/Vol] 316 10*3/uL 150-450 [facility] RBC Auto (Bld) [#/Vol]Ordere d By: Gladis Nava on 09-10-2024 RBC (Bld) [#/Vol] 4.73 10*6/uL 4.6-6.[address] [facility] Random urine creatinine alisson urement (mass/volume)Ordered By: Gladis Nava on 09-10-2024 Creatinine Unsp time (U) [Mass/Vol] 111.00 mg/dL NO RANGE EST. [facility] Re-Evaluation - PT (1)on Re-Evaluation - PT (1) [facility] [address] [place] [address] / REEVALUATION / MEDICARE RECERTIFICATION PHYSICAL THERAPY MR#: [id number] Acct: [id number] Name: CINDY COSTA Rep #: [id number] : 1940 84 From: Gladis Jones DPT, OCS, CSCS Referring Dr.: Dr. Gladis Nava MD Status:REG RCR [facility] [employer] [place] [employer]F [employer]Y INSURANCE Re-Evaluation Intro: Dr. Gladis Nava MD, It has been my pleasure to treat CINDY COSTA over the last 7 visits for gait instability. Please see the progress note below for an update on the physical therapy plan of care! Subjective Subjective: Doing better. balance is improving. Doing xercises on TM and at home. Feels good when done, No falls. using cane and wh walker at home. [facility] at [facility]. Feels like he needs more help family says. Family says in and out of chair is looking easier. Objective Objective/Function: Walks without AD for fGa today and improved but still short steps and slow especially when fatigued after 100 fet today, avoids FW weight shift. Better with cane with longer steps and more confidence. Using wh walker into PT and looks good with wh walker. Sit to stand without UE requires Min A and VC for FW weight shift but improved from day one. steps are 2 railings required.Fw weight shift still requiring cueing but corrects with cus. Appropriate to cotninue POC 4 weeks with fair prognosis, same goals Plan Plan Plan: 2x/week for 4 more weeks if approved to work on 1. FW weight shift exercises. 2. Gait training with challeenges. 3. Get on more aggressive home ex program(steep recover, heel raises, marching, band pulls, etc that patient can do on his own as safety allows. nsure pics of all oonce safe. Balance/Gait/Functional tests Balance/Special Test Scores Functional Gait Assessment Score: 20 % Disability: 33.3400 CATSIB Score (Max score 120 seconds): 62 Lower Extremity Functional Score: 20 Goals Goals Goal 1:: FGA to limit fall risk Goal Time Frame: 4-6 Weeks Goal 2:: I use of appropriate AD to limit future fall risk Goal Time Frame: 4-6 Weeks Goal Progress: Goal Met Goal 3:: I apporpriate strength and weight shift program at home HEP Goal Time Frame: 4-6 Weeks Goal Progress: Progressing Goal 4:: steps reciprocally with one rail with good forward weight shift Goal Time Frame: 4-6 Weeks Goal Progress: Progressing Goal 5:: exit chair without UE I Goal Time Frame: 4-6 Weeks Goal Progress: Progressing Goal 6:: 40 LEFS Goal Time Frame: 4-6 Weeks Goal Progress: +8 FGA Anticipated Interventions Anticipated Interventions Patient/Client Instruction: Educate patient on: Condition For the Purpose of:: To decrease pain, To increase ROM, To improve muscle performance and motor function, To increase tolerance to activity/condition/posit ion, To improve ability of physical actions for home/community/work/leis ure and To improve gait and locomotor functions Therapeutic Exercise to Include: Strength training, Flexibilty training, Gait and locomotor training, Passive ROM and Active ROM For the Purpose of:: To increase ROM, To improve nutrient delivery to tissue, To improve muscle performance and motor function and To increase tolerance to activity/condition/posit ion Re-Evaluation Ending Re-evaluation ending: Please do not hesitate to contact me at [phone] by phone or if you have questions or concerns regarding this new plan of care! Sincerely, Gladis Jones, DPT, OCS, CSCS 09/10/24 2679 CC: Dr. Gladis Nava MD EBG Signed For Medicare only, by signing this I certify the plan of care. ____ Physicians Signature Date Normal [facility] Serum globulin measurementOr dered By: Gladis Nava on 09-10-2024 Globulin (S) [Mass/Vol] 3.5 g/dL 2.2-4.2 [facility] Serum glucose measurement (m ass/volume)Ordered By: Gladis Nava on 09-10-2024 Glucose [Mass/Vol] 131 mg/dL High 70-99 [facility] Serum or plasma alanine chawla otransferase (ALT) measurementOrdered By: Gladis Nava on 09-10-2024 ALT [Catalytic activity/Vol] 18 U/L <47 [facility] Serum or plasma albumin alisson urement (mass/volume)Ordered By: Gladis Nava on 09-10-2024 Albumin [Mass/Vol] 4.3 g/dL 3.4-4.8 [facility] Serum or plasma albumin/glob ulin mass ratioOrdered By: Gladis Nava on 09-10-2024 Albumin/Globulin [Mass ratio] 1.3 {ratio} 0.9-2.4 [facility] Serum or plasma alkaline sukh sphatase measurementOrdered By: Gladis Nava on 09-10-2024 ALP [Catalytic activity/Vol] 64 U/L 40-129 [facility] Serum or plasma anion gap de termination (moles/volume)Ordered By: Gladis Nava on 09-10-2024 Anion gap [Moles/Vol] 13 mmol/L 5-15 [facility] Serum or plasma calcium alisson urement (mass/volume)Ordered By: Gladis Nava on 09-10-2024 Calcium [Mass/Vol] 9.8 mg/dL 7.6-11.0 [facility] Serum or plasma creatinine m easurement (moles/volume)Ordered By: Gladis Nava on 09-10-2024 Creatinine [Moles/Vol] 1.2 mg/dL 0.8-1.3 [facility] Serum or plasma potassium me asurementOrdered By: Gladis Nava on 09-10-2024 Potassium [Moles/Vol] 5.1 mmol/L 3.3-5.1 [facility] Serum or plasma sodium measu rement (moles/volume)Ordered By: Gladis Nava on 09-10-2024 Sodium [Moles/Vol] 141 mmol/L 133-145 [facility] Serum or plasma urea nitroge n measurement (mass/volume)Ordered By: Gladis Nava on 09-10-2024 Urea nitrogen [Mass/Vol] 20 mg/dL High 4-19 [facility] Total proteinOrdered By: Danika Nava on 09-10-2024 Protein [Mass/Vol] 7.8 g/dL 5.9-8.4 [facility] Urine albumin measurement wi detection limit of 20 mg/L or less (mass/volume)Ordered By: Gladis Nava on 09-10-2024 Albumin DL <= 20 mg/L (U) [Mass/Vol] < 12.0 mg/L NO RANGE EST. [facility] White blood cell (WBC) count Ordered By: Gladis Nava on 09-10-2024 WBC (Bld) [#/Vol] 7.7 10*3/uL 4.4-11.0 [facility] Inital Evaluation (1) - PTon 08-19-2024 Inital Evaluation (1) - PT [facility] [place] [address] / REHABILITATION SERVICES INITIAL EVALUATION MR#: [id number] Acct: [id number] Name: CINDY COSTA Rep #: [id number] : 1940 84 From: Gladis Jones DPT, OCS, CSCS Referring Dr.: Dr. Gladis Nava MD Status: REG R CR Insurance: [employer]URANCE Patient's Visit Information Visit Information Visit Information: CINDY COSTA is a 84 year old M referred to Physical Therapy by Dr. Gladis Nava MD with a diagnosis of gait instability. Date of Evaluation: 08/19/24 Physical Therapist: Gladis Jones DPT, OCS, CSCS Visit Plan Frequency: 3x /Week Duration: 4-6 Weeks Plan: 3x/week for 4-6 weeks initially recommended 100% use of wh walker for HEP and fall risk reviewed. please treat with ensuring use of wh walker, traing gait and pregait with cane. weight shifting exercise and general strength ex for HEP, stair training with Fw weight shift. Subjective Subjective: Balance is getting bad. Hard to get out of bed one day and hard to move. May have had a UTI and diabetic possibility. Was weak. Has been deteriorating over last couple weeks or a month One fall last summer in garden. Fell a couple weeks ago in bathroom. Fell in bedroom and walking to bathroom and that was last week. Uses cane to get around now, not used before last week. has a wh walker rollator and likes it. better since last week. Employed from [email or web address]. Spends day doing not a whole lot. No exercises and should walk more. Loves his reclineer she says( of 64 yrs) No regular exercises. Basic ADLs : dresses self and showeers I down stairs with railing, no heelp needed in bathroom. Objective Objective: Walks back to PT with cane short steps poor tadeo shift adn SBA. Can walk with out AD but CGA to min A needed and unsteady. Using wh walker does weell with much bigger steps and safer, recommnding this at allt imes and he does have them at home. Transition out of chair and from table I, much UE assist required and avoids FW weight shift. steps are reciprocal requiring two rails and avoids FW weight shift pulling self up steps with arms, descending onto heel lacking PF strength. heel raises are challenging but able with VC, Toe raises are challenging with post weight shift. FGA done without AD today adn Min A. strength in core is 3/5, hips flexion and abd and ext 3, knee ext 3+ and flexion 3= B. ankles 4- but poor coordination inv and ev. rciprocal tapping is poor with heels and toes. Sensation may be at slight deficit in B feet to gross light touch. reflexes 1/3 patella adn achilles Max tightness HS at -45 90/90 test. Balance/Special Test Scores Functional Gait Assessment Score: 14 % Disability: 53.3400 CATSIB Score (Max score 120 seconds): 62 Lower Extremity Functional Score: 12 Goals Goal 1:: FGA to limit fall risk Goal Time Frame: 4-6 Weeks Goal 2:: I use of appropriate AD to limit future fall risk Goal Time Frame: 4-6 Weeks Goal 3:: I apporpriate strength and weight shift program at home HEP Goal Time Frame: 4-6 Weeks Goal 4:: steps reciprocally with one rail with good forward weight shift Goal Time Frame: 4-6 Weeks Goal 5:: exit chair without UE I Goal Time Frame: 4-6 Weeks Goal 6:: 40 LEFS Goal Time Frame: 4-6 Weeks Rehabilitation Potential Physical Therapy Diagnosis: poor weight shifting and weakness limiting safe mobility Rehabilitation Potential: Fair Anticipated Interventions Patient/Client Instruction: Educate patient on: Condition For the Purpose of:: To decrease pain, To increase ROM, To improve muscle performance and motor function, To increase tolerance to activity/condition/posit ion, To improve ability of physical actions for home/community/work/leis ure and To improve gait and locomotor functions Therapeutic Exercise to Include: Strength training, Flexibilty training, Gait and locomotor training, Passive ROM and Active ROM For the Purpose of:: To increase ROM, To improve nutrient delivery to tissue, To improve muscle performance and motor function and To increase tolerance to activity/condition/posit ion Text: Thank you for the opportunity to evaluate your patient. For Medicare and Medicare HMO plans, please review the plan of care and approve it. It will need to be FAXED BACK to us at [phone] for Medicare purposes. For Medicare only, by signing this I certify the plan of care. Please let me know if there are questions or concerns regarding this plan of care. Physician Signature: Date: ____ 08/19/24 1459 CC: Dr. Gladis Nava MD EBG Signed Normal [facility] Hemoglobin A1con 08-14-2024 HbA1c (Bld) [Mass fraction] 9.3 % High 3.8-5.6 [facility] Comment on above: Order Comment: Order Date: 08/13/24 Order Info: 4548-4 - A1C Result Comment: Norm al < 5.7 % Prediabetic 5.7 - 6.4 % Diabetic >or= 6.5 % Please note range changes. Performed By: #### L 501.9520, L501.9985, L100.0100, L501.1200, L400.0001, L500.4050, L502.0500 #### [facility] [address] [place], [address] Absolute lymphocyte countOrd ered By: Gladis Nava on 08-13-2024 Lymphocytes Auto (Unsp spec) [#/Vol] 0.90 10*3/uL 0.83-4.51 [facility] Absolute neutrophil countOrd ered By: Gladis Nava on 08-13-2024 Neutrophils (Bld) [#/Vol] 6.3 10*3/uL 2.0-7.7 [facility] Albumin to globulin ratioOrd ered By: Gladis Nava on 08-13-2024 Albumin/Globulin [Mass ratio] 0.8 {ratio} Low 0.9-2.4 [facility] Automated lymphocyte count a s percentage of total leukocytesOrdered By: Gladis Nava on 08-13-2024 Lymphocytes/100 WBC Auto (Unsp spec) 11.1 % Low 19-41 [facility] Bacteria LM.HPF (Urine sed) [#/Area]Ordered By: Gladis Nava on 08-13-2024 Urine Bacteria RARE /hpf None Seen [facility] Basophil percentageOrdered B y: Gladis Nava on 08-13-2024 Basophils/100 WBC (Bld) 0.4 % 0-1 [facility] Bilirubin Test strip Ql (U)O rdered By: Gladis Nava on 08-13-2024 Bilirubin Ql (U) Negative Negative [facility] Bilirubin, totalOrdered By: Gladis Nava on 08-13-2024 Bilirubin [Mass/Vol] 0.60 mg/dL 0.20-1.00 [facility] Comment on above: For patients on eltr ombopag therapy, use of Dimension [place] TBIL is not recommended. Blood urea nitrogen (BUN)/cr eatinine ratioOrdered By: Gladis Nava on 08-13-2024 Urea nitrogen/Creatinine [Mass ratio] 19.2 mg/mg 10- [facility] CBC W/Diff, Automatedon 07-17 Absolute Lymph 0.90 X10 3/uL Normal 0.83-4.51 [facility] Comment on above: Order Comment: Order Date: 08/13/24 Order Info: 0184-1 - CBCD Performed By: #### L 501.9520, L501.9985, L100.0100, L501.1200, L400.0001, L500.4050, L502.0500 #### [facility] [address] [place], [place], [id number] Absolute Neut 6.3 X10 3/uL Normal 2.0-7.7 [facility] Comment on above: Order Comment: Order Date: 08/13/24 Order Info: 0184-1 - CBCD Performed By: #### L 501.9520, L501.9985, L100.0100, L501.1200, L400.0001, L500.4050, L502.0500 #### [facility] [address] [place], [place], [phone] (638) Basophils/100 WBC (Bld) 0.4 % Normal 0-1 [facility] Comment on above: Order Comment: Order Date: 08/13/24 Order Info: 0184-1 - CBCD Performed By: #### L 501.9520, L501.9985, L100.0100, L501.1200, L400.0001, L500.4050, L502.0500 #### [facility] [address] [place], [place], [address] (556) Eosinophils/100 WBC (Bld) 1.5 % Normal 0-5 [facility] Comment on above: Order Comment: Order Date: 08/13/24 Order Info: 0184-1 - CBCD Performed By: #### L 501.9520, L501.9985, L100.0100, L501.1200, L400.0001, L500.4050, L502.0500 #### [facility] [address] [place], [place], [id number] Erythrocyte distribution width (RBC) [Ratio] 12.5 % Normal 11.6-14.6 [facility] Comment on above: Order Comment: Order Date: 08/13/24 Order Info: 0184-1 - CBCD Performed By: #### L 501.9520, L501.9985, L100.0100, L501.1200, L400.0001, L500.4050, L502.0500 #### [facility] [address] [place], [address] Hematocrit (Bld) [Volume fraction] 45.1 % Normal 40-54 [facility] Comment on above: Order Comment: Order Date: 08/13/24 Order Info: 0184-1 - CBCD Performed By: #### L 501.9520, L501.9985, L100.0100, L501.1200, L400.0001, L500.4050, L502.0500 #### [facility] [address] [place] [place], [address] Hemoglobin (Bld) [Mass/Vol] 14.6 g/dL Normal 13.0-16.5 [facility] Comment on above: Order Comment: Order Date: 08/13/24 Order Info: 0184-1 - CBCD Performed By: #### L 501.9520, L501.9985, L100.0100, L501.1200, L400.0001, L500.4050, L502.0500 #### [facility] [address] [place], [address] IG% 0.200 Normal 0.0-0.9 [facility] Comment on above: Order Comment: Order Date: 08/13/24 Order Info: 0184-1 - CBCD Result Comment: IG% - Immature Granulocytes (promyelocytes, myelocytes and metamyelocytes) > 1% indicates that a LEFT SHIFT is Present. Performed By: #### L 501.9520, L501.9985, L100.0100, L501.1200, L400.0001, L500.4050, L502.0500 #### [facility] [address] [place], [address] Lymphocytes/100 WBC (Bld) 11.1 % Low 19-41 [facility] Comment on above: Order Comment: Order Date: 08/13/24 Order Info: 0184-1 - CBCD Performed By: #### L 501.9520, L501.9985, L100.0100, L501.1200, L400.0001, L500.4050, L502.0500 #### [facility] [address] [place], [address] MCH (RBC) [Entitic mass] 29.4 pg Normal 27.0-32.0 [facility] Comment on above: Order Comment: Order Date: 08/13/24 Order Info: 0184-1 - CBCD Performed By: #### L 501.9520, L501.9985, L100.0100, L501.1200, L400.0001, L500.4050, L502.0500 #### [facility] [address] [facility] [place], [address] MCHC (RBC) [Mass/Vol] 32.4 g/dL Normal 32-36 [facility] Comment on above: Order Comment: Order Date: 08/13/24 Order Info: 0184-1 - CBCD Performed By: #### L 501.9520, L501.9985, L100.0100, L501.1200, L400.0001, L500.4050, L502.0500 #### [facility] [address] [facility] [place], [address] MCV (RBC) [Entitic vol] 90.7 fL Normal 80-94 [facility] Comment on above: Order Comment: Order Date: 08/13/24 Order Info: 0184-1 - CBCD Performed By: #### L 501.9520, L501.9985, L100.0100, L501.1200, L400.0001, L500.4050, L502.0500 #### [facility] [address] [place], [address] Monocytes/100 WBC (Bld) 9.4 % Normal 0-10 [facility] Comment on above: Order Comment: Order Date: 08/13/24 Order Info: 0184-1 - CBCD Performed By: #### L 501.9520, L501.9985, L100.0100, L501.1200, L400.0001, L500.4050, L502.0500 #### [facility] [address] [place], [address] Neutrophils/100 WBC (Bld) 77.4 % High 47-70 [facility] Comment on above: Order Comment: Order Date: 08/13/24 Order Info: 0184-1 - CBCD Performed By: #### L 501.9520, L501.9985, L100.0100, L501.1200, L400.0001, L500.4050, L502.0500 #### [facility] [address] [place], [address] Nucleated RBC (Bld) [#/Vol] 0 10*3/uL Normal 0-5 [facility] Comment on above: Order Comment: Order Date: 08/13/24 Order Info: 0184-1 - CBCD Performed By: #### L 501.9520, L501.9985, L100.0100, L501.1200, L400.0001, L500.4050, L502.0500 #### [facility] [address] [facility] [place], [address] Platelet mean volume (Bld) [Entitic vol] 9.2 fL Normal 6.2-12.0 [facility] Comment on above: Order Comment: Order Date: 08/13/24 Order Info: 0184-1 - CBCD Performed By: #### L 501.9520, L501.9985, L100.0100, L501.1200, L400.0001, L500.4050, L502.0500 #### [facility] [address] [place], [address] Platelets (Bld) [#/Vol] 348 10*3/uL Normal 150-450 [facility] Comment on above: Order Comment: Order Date: 08/13/24 Order Info: 0184-1 - CBCD Performed By: #### L 501.9520, L501.9985, L100.0100, L501.1200, L400.0001, L500.4050, L502.0500 #### [facility] [address] [place], [address] RBC (Bld) [#/Vol] 4.97 10*6/uL Normal 4.6-6.[address] [facility] Comment on above: Order Comment: Order Date: 08/13/24 Order Info: 0184-1 - CBCD Performed By: #### L 501.9520, L501.9985, L100.0100, L501.1200, L400.0001, L500.4050, L502.0500 #### [facility] [address] [place], [address] RDW SD 41.1 fl Normal 35.1-43.9 [facility] Comment on above: Order Comment: Order Date: 08/13/24 Order Info: 0184-1 - CBCD Performed By: #### L 501.9520, L501.9985, L100.0100, L501.1200, L400.0001, L500.4050, L502.0500 #### [facility] [address] [place], [address] WBC (Bld) [#/Vol] 8.1 10*3/uL Normal 4.4-11.0 [facility] Comment on above: Order Comment: Order Date: 08/13/24 Order Info: 0184-1 - CBCD Performed By: #### L 501.9520, L501.9985, L100.0100, L501.1200, L400.0001, L500.4050, L502.0500 #### [facility] [address] [place], [address] Carbon dioxide measurementOr dered By: Gladis Nava on 08-13-2024 CO2 [Moles/Vol] 30.0 mmol/L 21.0-32.0 [facility] Chloride measurementOrdered By: Gladis Nava on 08-13-2024 Chloride [Moles/Vol] 97 mmol/L Low 98-107 [facility] Comprehensive Metabolic Prof ilon 08-13-2024 Albumin [Mass/Vol] 3.6 g/dL Normal 3.2-5.0 [facility] Comment on above: Order Comment: Order Date: 08/10/24 Order Info: 0667-1 - BMP Order Date: 08/13/24 Order Info: 0786-1 - CMP Order Info: 3016-3 - TSH Performed By: #### L 501.9520, L501.9985, L100.0100, L501.1200, L400.0001, L500.4050, L502.0500 #### [facility] [address] [place], [address] Albumin/Globulin [Mass ratio] 0.8 {ratio} Low 0.9-2.4 [facility] Comment on above: Order Comment: Order Date: 08/10/24 Order Info: 0667-1 - BMP Order Date: 08/13/24 Order Info: 0786-1 - CMP Order Info: 3016-3 - TSH Performed By: #### L 501.9520, L501.9985, L100.0100, L501.1200, L400.0001, L500.4050, L502.0500 #### [facility] [address] [place], [address] ALK P 79 U/L Normal 45-117 [facility] Comment on above: Order Comment: Order Date: 08/10/24 Order Info: 666- - BMP Order Date: 08/13/24 Order Info: 785-07 - CMP Order Info: 3015-3 - TSH Performed By: #### L 501.9520, L501.9985, L100.0100, L501.1200, L400.0001, L500.4050, L502.0500 #### [facility] [address] [place], [address] ALT [Catalytic activity/Vol] 29 U/L Normal 16-61 [facility] Comment on above: Order Comment: Order Date: 08/10/24 Order Info: 666-07 - BMP Order Date: 08/13/24 Order Info: 785-07 - [facility] Order Info: 3 - TSH Performed By: #### L 501.9520, L501.9985, L100.0100, L501.1200, L400.0001, L500.4050, L502.0500 #### [facility] [address] [place], [place], [address] AST [Catalytic activity/Vol] 11 U/L Low 15-37 [facility] Comment on above: Order Comment: Order Date: 08/10/24 Order Info: 0667- - BMP Order Date: 08/13/24 Order Info: 785-07 - CMP Order Info: 3 - TSH Performed By: #### L 501.9520, L501.9985, L100.0100, L501.1200, L400.0001, L500.4050, L502.0500 #### [facility] [address] [place], [place], [address] Bilirubin [Mass/Vol] 0.60 mg/dL Normal 0.20-1.00 [facility] Comment on above: Order Comment: Order Date: 08/10/24 Order Info: 0667- - BMP Order Date: 08/13/24 Order Info: 785-07 - CMP Order Info: 3 - TSH Result Comment: For patients on eltrombopag therapy, use of Dimension [place] TBIL is not recommended. Performed By: #### L 501.9520, L501.9985, L100.0100, L501.1200, L400.0001, L500.4050, L502.0500 #### [facility] [address] [place], [address] BUN/CRE 19.2 RATIO Normal 10-20 [facility] Comment on above: Order Comment: Order Date: 08/10/24 Order Info: 0667-1 - BMP Order Date: 08/13/24 Order Info: 0786-1 - CMP Order Info: 3 - TSH Performed By: #### L 501.9520, L501.9985, L100.0100, L501.1200, L400.0001, L500.4050, L502.0500 #### [facility] [address] [place], [place], [address] CA,Total 9.7 mg/dL Normal 8.5-10.1 [facility] Comment on above: Order Comment: Order Date: 08/10/24 Order Info: 0667-1 - BMP Order Date: 08/13/24 Order Info: 0786- - CMP Order Info: 3 - TSH Performed By: #### L 501.9520, L501.9985, L100.0100, L501.1200, L400.0001, L500.4050, L502.0500 #### [facility] [address] [place], [address] Chloride [Moles/Vol] 97 mmol/L Low 98-107 [facility] Comment on above: Order Comment: Order Date: 08/10/24 Order Info: 0667-1 - BMP Order Date: 08/13/24 Order Info: 0786-1 - CMP Order Info: 3013 - TSH Performed By: #### L 501.9520, L501.9985, L100.0100, L501.1200, L400.0001, L500.4050, L502.0500 #### [facility] [address] [place], [address] CO2 [Moles/Vol] 30.0 mmol/L Normal 21.0-32.0 [facility] Comment on above: Order Comment: Order Date: 08/10/24 Order Info: 0667-1 - BMP Order Date: 08/13/24 Order Info: 0786-1 - CMP Order Info: 3015-09 - TSH Performed By: #### L 501.9520, L501.9985, L100.0100, L501.1200, L400.0001, L500.4050, L502.0500 #### [facility] [address] [place], [address] Creatinine [Mass/Vol] 1.51 mg/dL High 0.70-1.30 [facility] Comment on above: Order Comment: Order Date: 08/10/24 Order Info: 06 - BMP Order Date: 08/13/24 Order Info: 785-07 - [facility] Order Info: 3015-09 - TSH Result Comment: The validity of the calculated GFR GFRAA in patients over 70 years has not been determined. Clinical correlation is essential. Performed By: #### L 501.9520, L501.9985, L100.0100, L501.1200, L400.0001, L500.4050, L502.0500 #### [facility] [address] [place], [address] EST GFR - AA 57 mL/min Low >60 [facility] Comment on above: Order Comment: Order Date: 08/10/24 Order Info: 0667-1 - BMP Order Date: 08/13/24 Order Info: 07 - CMP Order Info: 3015-3 - TSH Result Comment: Afri can [place] GFR Calc Performed By: #### L 501.9520, L501.9985, L100.0100, L501.1200, L400.0001, L500.4050, L502.0500 #### [facility] [address] [place], [place], [address] GAP 7 Normal 5-15 [facility] Comment on above: Order Comment: Order Date: 08/10/24 Order Info: 0667-1 - BMP Order Date: 08/13/24 Order Info: 0786-1 - [facility] Order Info: 3013 - TSH Performed By: #### L 501.9520, L501.9985, L100.0100, L501.1200, L400.0001, L500.4050, L502.0500 #### [facility] [address] [place], [place], [address] GFR/1.73 sq M.predicted among non-blacks MDRD (S/P/Bld) [Vol rate/Area] 47 mL/min/{1.73_m2} Low >60 [facility] Comment on above: Order Comment: Order Date: 08/10/24 Order Info: 0667- - BMP Order Date: 08/13/24 Order Info: 0786- - [facility] Order Info: 3015-09 - TSH Result Comment: Non- GFR Calc Performed By: #### L 501.9520, L501.9985, L100.0100, L501.1200, L400.0001, L500.4050, L502.0500 #### [facility] [address] [place], [address] Globulin (S) [Mass/Vol] 4.5 g/dL High 2.2-4.2 [facility] Comment on above: Order Comment: Order Date: 08/10/24 Order Info: 0667-1 - BMP Order Date: 08/13/24 Order Info: 0786-1 - [facility] Order Info: 30163 - TSH Performed By: #### L [id number], L501.9985, L100.0100, L501.1200, L400.0001, L500.4050, L502.0500 #### [facility] [address] [place], [place], [id number] [phone] Glucose [Mass/Vol] 334 mg/dL High 74-106 [facility] Comment on above: Order Comment: Order Date: 08/10/24 Order Info: 0667-1 - BMP Order Date: 08/13/24 Order Info: 0786-1 - [facility] Order Info: 3016-3 - TSH Result Comment: Gluc ose result greater than or equal to 200 mg/dL suggests DIABETES MELLITUS per A.D.A. criteria. Performed By: #### L [id number], L501.9985, L100.0100, L501.1200, L400.0001, L500.4050, L502.0500 #### [facility] [address] [place], [address] Potassium [Moles/Vol] 4.9 mmol/L Normal 3.5-5.1 [facility] Comment on above: Order Comment: Order Date: 08/10/24 Order Info: 0667-1 - BMP Order Date: 08/13/24 Order Info: 0786-1 - [facility] Order Info: 3016-3 - TSH Performed By: #### L 501.9520, L501.9985, L100.0100, L501.1200, L400.0001, L500.4050, L502.0500 #### [facility] [address] [place], [address] Sodium [Moles/Vol] 134 mmol/L Low 136-145 [facility] Comment on above: Order Comment: Order Date: 08/10/24 Order Info: 0667-1 - BMP Order Date: 08/13/24 Order Info: 0786-1 - [facility] Order Info: 3016-3 - TSH Performed By: #### L 501.9520, L501.9985, L100.0100, L501.1200, L400.0001, L500.4050, L502.0500 #### [facility] [address] [place], [address] T PROT 8.1 g/dL Normal 6.4-8.2 [facility] Comment on above: Order Comment: Order Date: 08/10/24 Order Info: 0667-1 - BMP Order Date: 08/13/24 Order Info: 0786-1 - [facility] Order Info: 30163 - TSH Performed By: #### L 501.9520, L501.9985, L100.0100, L501.1200, L400.0001, L500.4050, L502.0500 #### [facility] [address] [place], [place], [id number] Urea nitrogen [Mass/Vol] 29 mg/dL High 7-18 [facility] Comment on above: Order Comment: Order Date: 08/10/24 Order Info: 0667-1 - BMP Order Date: 08/13/24 Order Info: 0786-1 - [facility] Order Info: 3016 - TSH Performed By: #### L 501.9520, L501.9985, L100.0100, L501.1200, L400.0001, L500.4050, L502.0500 #### [facility] [address] [place], [place], [id number] Creatinine, Urine (random)on 08-13-2024 UR CREAT 171.00 mg/dL Normal NO RANGE EST. [facility] Comment on above: Order Comment: Order Date: 08/13/24 Order Info: 2161-8 - CREATU Order Info: 53628-1 - ALBU Performed By: #### L 501.9520, L501.9985, L100.0100, L501.1200, L400.0001, L500.4050, L502.0500 #### [facility] [address] [place], [place], [id number] Eosinophil percentageOrdered By: Gladis Nava on 08-13-2024 Eosinophils/100 WBC (Bld) 1.5 % 0-5 [facility] Epithelial cells.renal LM.HP F (Urine sed) [#/Area]Ordered By: Gladis Nava on 08-13-2024 Urine Renal Epithelial Cells 0-5 SEEN /hpf 0-5 [facility] Epithelial cells.squamous LM Ql (Urine sed)Ordered By: Gladis Nava on 08-13-2024 Epithelial cells.squamous LM.HPF (Urine sed) [#/Area] 5 /[HPF] 0-5 [facility] Erythrocyte distribution wid th ratioOrdered By: Gladis Nava on 08-13-2024 Erythrocyte distribution width (RBC) [Ratio] 12.5 % 11.6-14.6 [facility] Erythrocyte distribution wid th standard deviationOrdered By: Gladis Nava on 08-13-2024 Erythrocyte distribution width (RBC) [Entitic vol] 41.1 fL 35.1-43.9 [facility] Erythrocyte distribution width (RBC) [Ratio] 41.1 fl 35.1-43.9 [facility] Estimated glomerular filtrat ion rate (GFR) AmericanOrdered By: Gladis Nava on 08-13-2024 Estimated GFR (MDRD) Amer 57 mL/min Low >60 [facility] Comment on above: GFR Calc Glomerular filtration rate ( GFR) estimationOrdered By: Gladis Nava on 08-13-2024 Estimated GFR (MDRD) Non-Af Amer 47 mL/min Low >60 [facility] Comment on above: Non- GFR Calc GFR/1.73 sq M.predicted among non-blacks MDRD (S/P/Bld) [Vol rate/Area] 47 mL/min/{1.73_m2} Low >60 [facility] Comment on above: Non- GFR Calc Glucose Ql (U)Ordered By: Robert Nava on 08-13-2024 Glucose (U) [Mass/Vol] 1000 mg/dL High Normal [facility] Glucose measurementOrdered B y: Gladis Nava on 08-13-2024 Glucose [Mass/Vol] 334 mg/dL High 74-106 [facility] Comment on above: Glucose result great er than or equal to 200 mg/dLsuggests DIABETES MELLITUS per A.D.A. criteria. Hematocrit Auto (Bld) [Volum e fraction]Ordered By: Gladis Nava on 08-13-2024 Hematocrit (Bld) [Volume fraction] 45.1 % 40-54 [facility] Hemoglobin A1c percentageOrd ered By: Gladis Nava on 08-13-2024 HbA1c (Bld) [Mass fraction] 9.3 % High 3.8-5.6 [facility] Comment on above: Normal < 5.7 % Predi abetic 5.7 - 6.4 % Diabetic >or= 6.5 % Please note range changes. Hemoglobin measurementOrdere d By: Gladis Nava on 08-13-2024 Hemoglobin (Bld) [Mass/Vol] 14.6 g/dL 13.0-16.5 [facility] Immature granulocytes/100 WB C Auto (Bld)Ordered By: Gladis Nava on 08-13-2024 Immature granulocytes/100 WBC (Bld) 0.200 % 0.0-0.9 [facility] Comment on above: IG% - Immature Granu locytes (promyelocytes, myelocytes and metamyelocytes) > 1% indicates that a LEFT SHIFT is Present. Ketones Test strip Ql (U)Ord ered By: Gladis Nava on 08-13-2024 Ketones Ql (U) 5 mg/dl High Negative [facility] - Chemistry and C hemistry - challengeOrdered By: Gladis Nava on 08-13-2024 AST [Catalytic activity/Vol] 11 U/L Low 15-37 [facility] Lymphocytes Auto (Unsp spec) [#/Vol]Ordered By: Gladis Nava on 08-13-2024 Lymphocytes (Bld) [#/Vol] 0.90 10*3/uL 0.83-4.51 [facility] Lymphocytes/100 WBC Auto (Un sp spec)Ordered By: Gladis Nava on 08-13-2024 Lymphocytes/100 WBC (Bld) 11.1 % Low 19-41 [facility] MCV (mean corpuscular volume ) determinationOrdered By: Gladis Nava on 08-13-2024 MCV (RBC) [Entitic vol] 90.7 fL 80-94 [facility] Mean corpuscular hemoglobin (MCH) determinationOrdered By: Gladis Nava on 08-13-2024 MCH (RBC) [Entitic mass] 29.4 pg 27.0-32.0 [facility] Mean corpuscular hemoglobin concentration (MCHC) determinationOrdered By: Gladis Nava on 08-13-2024 MCHC (RBC) [Mass/Vol] 32.4 g/dL 32-36 [facility] Mean platelet volume determi nationOrdered By: Gladis Nava on 08-13-2024 Platelet mean volume (Bld) [Entitic vol] 9.2 fL 6.2-12.0 [facility] Microalbumin,Random Urineon 08-13-2024 MICROALBUMIN,UR 20.9 mg/L Normal NO RANGE EST. [facility] Comment on above: Order Comment: Order Date: 08/13/24 Order Info: 2161-8 - CREATU Order Info: [id number] - ALBU Performed By: #### L 501.9520, L501.9985, L100.0100, L501.1200, L400.0001, L500.4050, L502.0500 #### [facility] [address] [place], [place], [id number] Microscopic analysis of urin e for red blood cells (RBC)Ordered By: Gladis Nava on 08-13-2024 Microscopic analysis of urine for red blood cells (RBC) 0-5 SEEN /hpf 0-5 [facility] Urine RBC 0-5 SEEN /hpf 0-5 [facility] Monocyte percentageOrdered B y: Gladis Nava on 08-13-2024 Monocytes/100 WBC (Bld) 9.4 % 0-10 [facility] Mucus LM Ql (Urine sed)Order ed By: Gladis Nava on 08-13-2024 Mucus Ql (Urine sed) 0 SEEN /hpf [facility] Neutrophil percentageOrdered By: Gladis Nava on 08-13-2024 Neutrophils/100 WBC (Bld) 77.4 % High 47-70 [facility] Nitrite Test strip Ql (U)Ord ered By: Gladis Nava on 08-13-2024 Nitrite Ql (U) Negative Negative [facility] Nucleated red blood cell per centageOrdered By: Gladis Nava on 08-13-2024 Nucleated RBC/100 WBC (Bld) [Ratio] 0 % 0-5 [facility] Platelet countOrdered By: Robert Nava on 08-13-2024 Platelets (Bld) [#/Vol] 348 10*3/uL 150-450 [facility] Potassium measurementOrdered By: Gladis Nava on 08-13-2024 Potassium [Moles/Vol] 4.9 mmol/L 3.5-5.1 [facility] Protein Test strip Ql (U)Ord ered By: Gladis Nava on 08-13-2024 Protein Ql (U) 15 mg/dl High Negative [facility] RBC Auto (Bld) [#/Vol]Ordere d By: Gladis Nava on 08-13-2024 RBC (Bld) [#/Vol] 4.97 10*6/uL 4.6-6.[address] [facility] Random urine microalbumin me asurementOrdered By: Gladis Nava on 08-13-2024 Urine Random Microalbumin 20.9 mg/L NO RANGE EST. [facility] Serum anion gap measurementO rdered By: Gladis Nava on 08-13-2024 Anion gap [Moles/Vol] 7 mmol/L 5-15 [facility] Serum globulin measurementOr dered By: Gladis Nava on 08-13-2024 Globulin (S) [Mass/Vol] 4.5 g/dL High 2.2-4.2 [facility] Serum or plasma alanine chawla otransferase (ALT) measurementOrdered By: Gladis Nava on 08-13-2024 ALT [Catalytic activity/Vol] 29 U/L 16-61 [facility] Serum or plasma albumin alisson urement (mass/volume)Ordered By: Gladis Nava on 08-13-2024 Albumin [Mass/Vol] 3.6 g/dL 3.2-5.0 [facility] Serum or plasma alkaline sukh sphatase measurementOrdered By: Gladis Nava on 08-13-2024 ALP [Catalytic activity/Vol] 79 U/L 45-117 [facility] Serum or plasma calcium alisson urement (mass/volume)Ordered By: Gladis Nava on 08-13-2024 Calcium [Mass/Vol] 9.7 mg/dL 8.5-10.1 [facility] Serum or plasma creatinine m easurement (mass/volume)Ordered By: Gladis Nava on 08-13-2024 Creatinine [Mass/Vol] 1.51 mg/dL High 0.70-1.30 [facility] Comment on above: The validity of the calculated GFR & GFRAA in patients over 70 years has not been determined. Clinical correlation is essential. Serum or plasma thyroid stim ulating hormone (TSH) measurement (units/volume)Ordered By: Gladis Nava on 08-13-2024 TSH Qn 0.773 uIU/mL 0.358-3.740 [facility] Serum or plasma urea nitroge n measurement (mass/volume)Ordered By: Gladis Nava on 08-13-2024 Urea nitrogen [Mass/Vol] 29 mg/dL High 7-18 [facility] Sodium levelOrdered By: Gladis Nava on 08-13-2024 Sodium [Moles/Vol] 134 mmol/L Low 136-145 [facility] Squamous epithelial cells de tection in urine sediment by light microscopyOrdered By: Gladis Nava on 08-13-2024 Epithelial cells.squamous LM Ql (Urine sed) 5-10 SEEN /hpf 0-5 [facility] TSH QnOrdered By: Gladis Nava on 08-13-2024 Thyroid Stimulating Hormone (TSH) 0.773 uIU/mL 0.358-3.740 [facility] Thyroid Stim Hormone (TSH)on 08-13-2024 TSH 0.773 uIU/mL Normal 0.358-3.740 [facility] Comment on above: Order Comment: Order Date: 08/10/24 Order Info: 0667-1 - BMP Order Date: 08/13/24 Order Info: 0786-1 - CMP Order Info: 3016-3 - TSH Performed By: #### L 501.9520, L501.9985, L100.0100, L501.1200, L400.0001, L500.4050, L502.0500 #### [facility] [address] [place] [address], [address] Total proteinOrdered By: Danika Nava on 08-13-2024 Protein [Mass/Vol] 8.1 g/dL 6.4-8.2 [facility] Urinalysis, Completeon 08-13 BACTERIA RARE Normal None Seen [facility] Comment on above: Order Comment: Order Date: 08/13/24 Order Info: 30189-7 - [facility] PATIENT SAFETY ATTENDANT TO SPECIFY Performed By: #### L 501.9520, L501.9985, L100.0100, L501.1200, L400.0001, L500.4050, L502.0500 #### [facility] [address] [place], [address] EPI,RENAL 0-5 SEEN Normal 0-5 [facility] Comment on above: Order Comment: Order Date: 08/13/24 Order Info: [id number] [facility] PATIENT SAFETY ATTENDANT TO SPECIFY Performed By: #### L [id number], L501.9985, L100.0100, L501.1200, L400.0001, L500.4050, L502.0500 #### [facility] [address] [place], [address] EPI,SQUAMOUS 5-10 SEEN Normal 0-5 [facility] Comment on above: Order Comment: Order Date: 08/13/24 Order Info: [id number] [facility] PATIENT SAFETY ATTENDANT TO SPECIFY Performed By: #### L 501.9520, L501.9985, L100.0100, L501.1200, L400.0001, L500.4050, L502.0500 #### [facility] [place], [place], [address] RBC 0-5 SEEN Normal 0-5 [facility] Comment on above: Order Comment: Order Date: 08/13/24 Order Info: [id number] [facility] PATIENT SAFETY ATTENDANT TO SPECIFY Performed By: #### L 501.9520, L501.9985, L100.0100, L501.1200, L400.0001, L500.4050, L502.0500 #### [facility] [address] [place], [address] WBC 10-25 SEEN Normal 0-5 [facility] Comment on above: Order Comment: Order Date: 08/13/24 Order Info: [id number] [facility] PATIENT SAFETY ATTENDANT TO SPECIFY Performed By: #### L 501.9520, L501.9985, L100.0100, L501.1200, L400.0001, L500.4050, L502.0500 #### [facility] [place], [address] Mucus Ql (Urine sed) 0 SEEN Normal [facility] Comment on above: Order Comment: Order Date: 08/13/24 Order Info: [id number] - [facility] PATIENT SAFETY ATTENDANT TO SPECIFY Performed By: #### L 501.9520, L501.9985, L100.0100, L501.1200, L400.0001, L500.4050, L502.0500 #### [facility] [address] [place], [address] Urine blood detectionOrdered By: Gladis Nava on 08-13-2024 Urine Occult Blood 10 /ul High Negative [facility] Urine clarityOrdered By: Danika Nava on 08-13-2024 Clarity (U) Clear Clear [facility] Urine color determinationOrd ered By: Gladis Nava on 08-13-2024 Color (U) Yellow Yellow [facility] Urine creatinine measurement (mass/volume)Ordered By: Gladis Nava on 08-13-2024 Creatinine (U) [Mass/Vol] 171.00 mg/dL NO RANGE EST. [facility] Urine glucose detectionOrder ed By: Gladis Nava on 08-13-2024 Glucose Ql (U) 1000 mg/dl High Normal [facility] Urine leukocyte esterase det ection by dipstickOrdered By: Gladis Nava on 08-13-2024 Leukocyte esterase Test strip Ql (U) 500 /ul High Negative [facility] Urine pHOrdered By: Gladis higuera on 08-13-2024 pH (U) 6.0 [pH] 5.0 - 8.0 [facility] Urine sediment bacteria coun t by microscopy (number/high power field)Ordered By: Gladis Nava on 08-13-2024 Bacteria LM.HPF (Urine sed) [#/Area] RARE /hpf None Seen [facility] Urine sediment renal epithel ial cell count by microscopy (number/high power field)Ordered By: Gladis Nava on 08-13-2024 Epithelial cells.renal LM.HPF (Urine sed) [#/Area] 0 /[HPF] 0-5 [facility] Urine specific gravity measu rementOrdered By: Gladis Nava on 08-13-2024 Specific gravity (U) [Rel density] 1.015 1.002-1.030 [facility] Urine urobilinogen measureme ntOrdered By: Gladis Nava on 08-13-2024 Urobilinogen Ql (U) Normal mg/dl Normal [facility] Urobilinogen Ql (U)Ordered B y: Gladis Nava on 08-13-2024 Urine Urobilinogen Normal mg/dl Normal [facility] White blood cell (WBC) count Ordered By: Gladis Nava on 08-13-2024 WBC (Bld) [#/Vol] 8.1 10*3/uL 4.4-11.0 [facility] White blood cell countOrdere d By: Gladis Nava on 08-13-2024 Urine WBC 10-25 SEEN /hpf 0-5 [facility] White blood cell count 10-25 SEEN /hpf 0-5 [facility] Urine Cultureon 08-07-2024 [facility] Order Date: 08/06/24 Order Info: 630-4 - [facility] Mixed Gram Pos Gram Neg Org [place] Count 1000-10,000 MIXC Mixed contaminants. Submit a new specimen if indicated. Normal [facility] Comment on above: Performed By: #### L 502.0250 #### [facility] [place], [address] Bilirubin Test strip Ql (U)O rdered By: Gladis Nava on 08-06-2024 Bilirubin Ql (U) Negative Negative [facility] Epithelial cells.squamous LM Ql (Urine sed)Ordered By: Gladis Nava on 08-06-2024 Epithelial cells.squamous LM.HPF (Urine sed) [#/Area] 0 /[HPF] 0-5 [facility] Glucose Ql (U)Ordered By: Robert Nava on 08-06-2024 Glucose (U) [Mass/Vol] 1000 mg/dL High Normal [facility] Ketones Test strip Ql (U)Ord ered By: Gladis Nava on 08-06-2024 Ketones Ql (U) Negative Negative [facility] Microscopic analysis of urin e for red blood cells (RBC)Ordered By: Gladis Nava on 08-06-2024 Microscopic analysis of urine for red blood cells (RBC) 0-5 SEEN /hpf 0-5 [facility] Urine RBC 0-5 SEEN /hpf 0-5 [facility] Mucus LM Ql (Urine sed)Order ed By: Gladis Nava on 08-06-2024 Mucus Ql (Urine sed) 0 SEEN /hpf [facility] Nitrite Test strip Ql (U)Ord ered By: Gladis Nava on 08-06-2024 Nitrite Ql (U) Negative Negative [facility] Protein Test strip Ql (U)Ord ered By: Gladis Nava on 08-06-2024 Protein Ql (U) Negative Negative [facility] Squamous epithelial cells de tection in urine sediment by light microscopyOrdered By: Gladis Nava on 08-06-2024 Epithelial cells.squamous LM Ql (Urine sed) 0-5 SEEN /hpf 0-5 [facility] Urinalysis, Completeon 08-06 EPI,SQUAMOUS 0-5 SEEN Normal 0-5 [facility] Comment on above: Order Comment: Order Date: 08/06/24Order Info: [id number] - UACCOLLECTOR TO SPECIFY Performed By: #### L 502.0250 #### [facility] [address] [place], [address] RBC 0-5 SEEN Normal 0-5 [facility] Comment on above: Order Comment: Order Date: 08/06/24Order Info: [id number] - UACCOLLECTOR TO SPECIFY Performed By: #### L 502.0250 #### [facility] [address] [place], [address] WBC 10-25 SEEN Normal 0-5 [facility] Comment on above: Order Comment: Order Date: 08/06/24Order Info: [id number] - UACCOLLECTOR TO SPECIFY Performed By: #### L 502.0250 #### [facility] [address] [place], [address] BACTERIA 1+ /hpf Normal None Seen [facility] Comment on above: Order Comment: Order Date: 08/06/24Order Info: [id number] - UACCOLLECTOR TO SPECIFY Performed By: #### L 502.0250 #### [facility] [address] [place], [address] YEAST 1+ /hpf Normal None Seen [facility] Comment on above: Order Comment: Order Date: 08/06/24Order Info: [id number] - UACCOLLECTOR TO SPECIFY Performed By: #### L 502.0250 #### [facility] [address] [place], [address] Mucus Ql (Urine sed) 0 SEEN Normal [facility] Comment on above: Order Comment: Order Date: 08/06/24Order Info: [id number] - UACCOLLECTOR TO SPECIFY Performed By: #### L 502.0250 #### [facility] [address] [place], [address] Urine blood detectionOrdered By: Gladis Nava on 08-06-2024 Urine Occult Blood 10 /ul High Negative [facility] Urine clarityOrdered By: Danika Nava on 08-06-2024 Clarity (U) Sl. Cloudy Clear [facility] Urine color determinationOrd ered By: Gladis Nava on 08-06-2024 Color (U) Yellow Yellow [facility] Urine cultureOrdered By: Danika Nava on 08-06-2024 Bacteria identified Cx Nom (U) Mixed Gram Pos & Gram Neg Org Abnormal [facility] Urine glucose detectionOrder ed By: Gladis Nava on 08-06-2024 Glucose Ql (U) 1000 mg/dl High Normal [facility] Urine leukocyte esterase det ection by dipstickOrdered By: Gladis Nava on 08-06-2024 Leukocyte esterase Test strip Ql (U) 500 /ul High Negative [facility] Urine pHOrdered By: Gladis higuera on 08-06-2024 pH (U) 6.0 [pH] 5.0 - 8.0 [facility] Urine sediment bacteria coun t by microscopy (number/high power field)Ordered By: Gladis Nava on 08-06-2024 Bacteria LM.HPF (Urine sed) [#/Area] 1 /[HPF] None Seen [facility] Urine sediment yeast count b y microscopy (number/high powered field)Ordered By: Gladis Nava on 08-06-2024 Yeast LM.HPF (Urine sed) [#/Area] 1 /[HPF] None Seen [facility] Urine specific gravity measu rementOrdered By: Gladis Nava on 08-06-2024 Specific gravity (U) [Rel density] 1.005 1.002-1.030 [facility] Urine urobilinogen measureme ntOrdered By: Gladis Nava on 08-06-2024 Urobilinogen Ql (U) Normal mg/dl Normal [facility] Urobilinogen Ql (U)Ordered B y: Gladis Nava on 08-06-2024 Urine Urobilinogen Normal mg/dl Normal [facility] White blood cell countOrdere d By: Gladis Nava on 08-06-2024 Urine WBC 10-25 SEEN /hpf 0-5 [facility] White blood cell count 10-25 SEEN /hpf 0-5 [facility] Yeast LM.HPF (Urine sed) [#/ Area]Ordered By: Gladis Nava on 08-06-2024 Urine Yeast 1+ /hpf None Seen [facility] Protein Electroph, Son 07-29 Albumin [Mass/Vol] 3.6 g/dL Normal 2.9-4.4 [facility] Comment on above: Order Comment: Order Date: 07/27/24Order Info: 0060-1 - PROEL Performed By: #### L 502.0250 #### [facility] [address] [place], [address] Albumin/Globulin [Mass ratio] 1.0 {ratio} Normal 0.7-1.7 [facility] Comment on above: Order Comment: Order Date: 07/27/24Order Info: 0060-1 - PROEL Performed By: #### L 502.0250 #### [facility] [address] [place], [place], [id number] ALPHA-1 GLOBUL 0.2 g/dL Normal 0.0-0.4 [facility] Comment on above: Order Comment: Order Date: 07/27/24Order Info: 0060-1 - PROEL Performed By: #### L 502.0250 #### [facility] [address] [place], [address] ALPHA-2 GLOBUL 0.9 g/dL Normal 0.4-1.0 [facility] Comment on above: Order Comment: Order Date: 07/27/24Order Info: 0060-1 - PROEL Performed By: #### L 502.0250 #### [facility] [address] [place], [address] BETA GLOBULIN 1.2 g/dL Normal 0.7-1.3 [facility] Comment on above: Order Comment: Order Date: 07/27/24Order Info: 0060-1 - PROEL Performed By: #### L 502.0250 #### [facility] [address] [place], [address] GAMMA GLOBULIN 1.2 g/dL Normal 0.4-1.8 [facility] Comment on above: Order Comment: Order Date: 07/27/24Order Info: 0060-1 - PROEL Performed By: #### L 502.0250 #### [facility] [address] [place], [address] Globulin (S) [Mass/Vol] 3.5 g/dL Normal 2.2-3.9 [facility] Comment on above: Order Comment: Order Date: 07/27/24Order Info: 0060-1 - PROEL Performed By: #### L 502.0250 #### [facility] [address] [place], [address] INTERPRETATION Comment Normal . [facility] Comment on above: Order Comment: Order Date: 07/27/24Order Info: 0060-1 - PROEL Result Comment: Prot ein electrophoresis scan will follow via computer, mail, or category manager delivery. Performed By: #### L 502.0250 #### [facility] [address] [place], [address] M-SPIKE Not Observed Normal Not Observed [facility] Comment on above: Order Comment: Order Date: 07/27/24Order Info: 0060- - PROEL Performed By: #### L 502.0250 #### [facility] [address] [place], [place], [address] NOTE: Comment Normal . [facility] Comment on above: Order Comment: Order Date: 07/27/24Order Info: 0060- - PROEL Result Comment: The SPE pattern appears unremarkable. Evidence of monoclonal protein is not apparent. Performed at: [facility] [id number] [employer] As[employer]er: Kike Alfaro PhD, Phone: [phone] Performed By: #### L 502.0250 #### [facility] [address] [place], [place], [id number] Protein [Mass/Vol] 7.1 g/dL Normal 6.0-8.5 [facility] Comment on above: Order Comment: Order Date: 07/27/24Order Info: 0060 - PROEL Performed By: #### L 502.0250 #### [facility] [address] [place], [place], [id number] Absolute lymphocyte countOrd ered By: Gladis Nava on 07-28-2024 Lymphocytes Auto (Unsp spec) [#/Vol] 0.61 10*3/uL Low 0.83-4.51 [facility] Absolute neutrophil countOrd ered By: Gladis Nava on 07-28-2024 Neutrophils (Bld) [#/Vol] 7.0 10*3/uL 2.0-7.7 [facility] Addendum DocumentOrdered By: Gladis Nava on 07-28-2024 Protein Electrophoresis Note Comment . [facility] Comment on above: The SPE pattern appe ars unremarkable. Evidence ofmonoclonal protein is not apparent.Performed at: [facility] [id number] Director: Kike Alfaro PhD, Phone: [phone] Albumin Elph [Mass/Vol]Order ed By: Gladis Nava on 07-28-2024 Albumin [Mass/Vol] 3.6 g/dL 2.9-4.4 [facility] Albumin to globulin ratioOrd ered By: Gladis Nava on 07-28-2024 Albumin/Globulin [Mass ratio] 1.0 {ratio} 0.9-2.4 [facility] Albumin/Globulin Elph [Mass ratio]Ordered By: Gladis Nava on 07-28-2024 Albumin/Globulin (PEP) 1.0 0.7-1.7 [facility] Wxght-9-mrththft measurement by protein electrophoresisOrdered By: Gladis Nava on 07-28-2024 Whimk-3-Pqhfndcwk 0.2 g/dL 0.0-0.4 [facility] Jmbhv-1-gsmahypb measurement by protein electrophoresisOrdered By: Gladis Nava on 07-28-2024 Ukkku-3-Exfbdpwdj 0.9 g/dL 0.4-1.0 [facility] Automated lymphocyte count a s percentage of total leukocytesOrdered By: Gladis Nava on 07-28-2024 Lymphocytes/100 WBC Auto (Unsp spec) 7.5 % Low 19-41 [facility] BNP (brain natriuretic pepti de measurement)Ordered By: Gladis Nava on 07-28-2024 Natriuretic peptide B (Bld) [Mass/Vol] 54.8 pg/mL 0-100 [facility] BNP,B-Type NATRIURETIC PEPTI Rodolfo 07-28-2024 Natriuretic peptide B (Bld) [Mass/Vol] 54.8 pg/mL Normal 0-100 [facility] Comment on above: Performed By: #### L 502.0250 #### [facility] [address] [place] [address]. [place], [address] Basophil percentageOrdered B y: Gladis Nava on 07-28-2024 Basophils/100 WBC (Bld) 0.2 % 0-1 [facility] Beta globulin Elph [Mass/Vol ]Ordered By: Gladis Nava on 07-28-2024 Beta Globulins 1.2 g/dL 0.7-1.3 [facility] Bilirubin, totalOrdered By: Gladis Nava on 07-28-2024 Bilirubin [Mass/Vol] 0.50 mg/dL 0.20-1.00 [facility] Comment on above: For patients on eltr ombopag therapy, use of Dimension [place] TBIL is not recommended. Blood urea nitrogen (BUN)/cr eatinine ratioOrdered By: Gladis Nava on 07-28-2024 Urea nitrogen/Creatinine [Mass ratio] 18.7 mg/mg 10-20 [facility] C-reactive protein measureme nt by high sensitivity methodOrdered By: Gladis Nava on 07-28-2024 C-Reactive Protein Extended Range 3.14 mg/L High 0.0-3.0 [facility] Comment on above: C-Reactive Protein ( CRP) provides useful information for thediagnosis, therapy and monitoring of inflammatory processesand associated diseases. For the evaluation of Relative Riskfor Cardiovascular Disease, a High Sensitivity CRP (HSCRP)should be ordered. C-reactive protein measurement by high sensitivity method 3.14 mg/L High 0.0-3.0 [facility] Comment on above: C-Reactive Protein ( CRP) provides useful information for thediagnosis, therapy and monitoring of inflammatory processesand associated diseases. For the evaluation of Relative Riskfor Cardiovascular Disease, a High Sensitivity CRP (HSCRP)should be ordered. CBC W/Diff, Automatedon 07-15 Absolute Lymph 0.61 X10 3/uL Low 0.83-4.51 [facility] Comment on above: Order Comment: Order Date: 07/27/24 Order Info: 0184-1 - CBCD Order Info: [id number] - SED Performed By: #### L 100.0100, L3100.3450, L500.4050, L101.9900, L501.6710, L300.8000 #### [facility] [address] [place], [place], [id number] Absolute Neut 7.0 X10 3/uL Normal 2.0-7.7 [facility] Comment on above: Order Comment: Order Date: 07/27/24 Order Info: 0184-1 - CBCD Order Info: [id number] - SED Performed By: #### L 100.0100, L3100.3450, L500.4050, L101.9900, L501.6710, L300.8000 #### [facility] [address] [place], [address] Basophils/100 WBC (Bld) 0.2 % Normal 0-1 [facility] Comment on above: Order Comment: Order Date: 07/27/24 Order Info: 018- - CBCD Order Info: [id number] - SED Performed By: #### L 100.0100, L3100.3450, L500.4050, L101.9900, L501.6710, L300.8000 #### [facility] [address] [place], [address] Eosinophils/100 WBC (Bld) 0.1 % Normal 0-5 [facility] Comment on above: Order Comment: Order Date: 07/27/24 Order Info: 01810-13 - CBCD Order Info: [id number] - SED Performed By: #### L 100.0100, L3100.3450, L500.4050, L101.9900, L501.6710, L300.8000 #### [facility] [address] [place], [address] Erythrocyte distribution width (RBC) [Ratio] 12.8 % Normal 11.6-14.6 [facility] Comment on above: Order Comment: Order Date: 07/27/24 Order Info: 01810-13 - CBCD Order Info: [id number] - SED Performed By: #### L 100.0100, L3100.3450, L500.4050, L101.9900, L501.6710, L300.8000 #### [facility] [address] [place], [address] Hematocrit (Bld) [Volume fraction] 41.8 % Normal 40-54 [facility] Comment on above: Order Comment: Order Date: 07/27/24 Order Info: 018-1 - CBCD Order Info: [id number] - SED Performed By: #### L 100.0100, L3100.3450, L500.4050, L101.9900, L501.6710, L300.8000 #### [facility] [address] [place], [address] Hemoglobin (Bld) [Mass/Vol] 14.4 g/dL Normal 13.0-16.5 [facility] Comment on above: Order Comment: Order Date: 07/27/24 Order Info: 0184- - CBCD Order Info: [id number] - SED Performed By: #### L 100.0100, L3100.3450, L500.4050, L101.9900, L501.6710, L300.8000 #### [facility] [address] [place], [address] IG% 0.500 Normal 0.0-0.9 [facility] Comment on above: Order Comment: Order Date: 07/27/24 Order Info: 018- - CBCD Order Info: [id number] - SED Result Comment: IG% - Immature Granulocytes (promyelocytes, myelocytes and metamyelocytes) > 1% indicates that a LEFT SHIFT is Present. Performed By: #### L 100.0100, L3100.3450, L500.4050, L101.9900, L501.6710, L300.8000 #### [facility] [address] [place], [address] Lymphocytes/100 WBC (Bld) 7.5 % Low 19-41 [facility] Comment on above: Order Comment: Order Date: 07/27/24 Order Info: 0184- - CBCD Order Info: [id number] - SED Performed By: #### L 100.0100, L3100.3450, L500.4050, L101.9900, L501.6710, L300.8000 #### [facility] [address] [place], [address] MCH (RBC) [Entitic mass] 30.8 pg Normal 27.0-32.0 [facility] Comment on above: Order Comment: Order Date: 07/27/24 Order Info: 018- - CBCD Order Info: [id number] - SED Performed By: #### L 100.0100, L3100.3450, L500.4050, L101.9900, L501.6710, L300.8000 #### [facility] [address] [place], [address] MCHC (RBC) [Mass/Vol] 34.4 g/dL Normal 32-36 [facility] Comment on above: Order Comment: Order Date: 07/27/24 Order Info: 01810-13 - CBCD Order Info: [id number] - SED Performed By: #### L 100.0100, L3100.3450, L500.4050, L101.9900, L501.6710, L300.8000 #### [facility] [address] [place], [address] MCV (RBC) [Entitic vol] 89.3 fL Normal 80-94 [facility] Comment on above: Order Comment: Order Date: 07/27/24 Order Info: 01810-13 - CBCD Order Info: [id number] - SED Performed By: #### L 100.0100, L3100.3450, L500.4050, L101.9900, L501.6710, L300.8000 #### [facility] [address] [place], [address] Monocytes/100 WBC (Bld) 6.3 % Normal 0-10 [facility] Comment on above: Order Comment: Order Date: 07/27/24 Order Info: 018- - CBCD Order Info: [id number] - SED Performed By: #### L 100.0100, L3100.3450, L500.4050, L101.9900, L501.6710, L300.8000 #### [facility] [address] [place], [address] Neutrophils/100 WBC (Bld) 85.4 % High 47-70 [facility] Comment on above: Order Comment: Order Date: 07/27/24 Order Info: 0184-1 - CBCD Order Info: [id number] - SED Performed By: #### L 100.0100, L3100.3450, L500.4050, L101.9900, L501.6710, L300.8000 #### [facility] [address] [place], [address] Nucleated RBC (Bld) [#/Vol] 0 10*3/uL Normal 0-5 [facility] Comment on above: Order Comment: Order Date: 07/27/24 Order Info: 01810-13 - CBCD Order Info: [id number] - SED Performed By: #### L 100.0100, L3100.3450, L500.4050, L101.9900, L501.6710, L300.8000 #### [facility] [address] [place], [address] Platelet mean volume (Bld) [Entitic vol] 8.7 fL Normal 6.2-12.0 [facility] Comment on above: Order Comment: Order Date: 07/27/24 Order Info: 0184- - CBCD Order Info: [id number] - SED Performed By: #### L 100.0100, L3100.3450, L500.4050, L101.9900, L501.6710, L300.8000 #### [facility] [address] [place], [address] Platelets (Bld) [#/Vol] 323 10*3/uL Normal 150-450 [facility] Comment on above: Order Comment: Order Date: 07/27/24 Order Info: 0184-1 - CBCD Order Info: [id number] - SED Performed By: #### L 100.0100, L3100.3450, L500.4050, L101.9900, L501.6710, L300.8000 #### [facility] [address] [place], [address] RBC (Bld) [#/Vol] 4.68 10*6/uL Normal 4.6-6.[address] [facility] Comment on above: Order Comment: Order Date: 07/27/24 Order Info: 0184-1 - CBCD Order Info: [id number] - SED Performed By: #### L 100.0100, L3100.3450, L500.4050, L101.9900, L501.6710, L300.8000 #### [facility] [address] [place], [address] RDW SD 41.8 fl Normal 35.1-43.9 [facility] Comment on above: Order Comment: Order Date: 07/27/24 Order Info: 0184-1 - CBCD Order Info: [id number] - SED Performed By: #### L 100.0100, L3100.3450, L500.4050, L101.9900, L501.6710, L300.8000 #### [facility] [address] [place], [address] WBC (Bld) [#/Vol] 8.2 10*3/uL Normal 4.4-11.0 [facility] Comment on above: Order Comment: Order Date: 07/27/24 Order Info: 0184-1 - CBCD Order Info: [id number] - SED Performed By: #### L 100.0100, L3100.3450, L500.4050, L101.9900, L501.6710, L300.8000 #### [facility] [address] [place], [address] CRPon 07-28-2024 C-REACTIVE PROT 3.14 mg/L High 0.0-3.0 [facility] Comment on above: Order Comment: Order Date: 07/27/24Order Info: 0786-1 - CMPOrder Info: [id number] - CRP Result Comment: C-Re active Protein (CRP) provides useful information for the diagnosis, therapy and monitoring of inflammatory processes and associated diseases. For the evaluation of Relative Risk for Cardiovascular Disease, a High Sensitivity CRP (HSCRP) should be ordered. Performed By: #### L 502.0250 #### [facility] [address] [place], [place], [address] CTA Chest W/WO Contraston CTA Chest W/WO Contrast [facility] [address] [place] [address] CTA Chest W/WO Contrast MR#: [id number] Acct: [id number] Name: CINDY COSTA Rep #: [id number] : 1940 M 84 From: Yury Henry MD PCP: Dr. Gladis Nava MD Status: REG ER Study: CTA Chest W/WO Contrast Date of Exam: 07/28/24 Exam# [id number] Ordering Dr: Jaya Quick DO [id number] STUDY: CTA CHEST REASON FOR EXAM: Male, 84 years old. elevated dimer, hx of PE RADIATION DOSAGE (If Supplied By Facility): CTDIvol = ( 14.76 ) mGy, DLP = ( 528.26 ) mGycm TECHNIQUE: The examination was performed with the intravenous administration of IV 100mL Isovue-370. Post-processing of the angiographic images was performed, with multiplanar reformation and 3D reconstruction. Individualized dose optimization techniques were used for this CT. COMPARISON: None. FINDINGS: Normal enhancement of the main pulmonary artery and right and left pulmonary arteries. Normal enhancement of the bilateral peripheral pulmonary arteries. There is no demonstrated pulmonary embolism. Atherosclerotic change of the aorta without evidence for aneurysm. There is no demonstrated aortic dissection. Heart size is normal. There is mild coronary artery calcification Small subcentimeter nodes likely benign. . There is a solid nodule in the left lobe of thyroid. Normal visualized trachea and bronchi. The lungs are well expanded. Minor atelectasis within the dependent portion of both lungs more pronounced in the right. There is no focal infiltration or pulmonary nodules. Normal pleura. Normal chest wall structures. Dorsal spine demonstrates degenerative change. There is a relatively large hiatal hernia containing both stomach as well as abdominal fat Small cyst noted within the liver. CT/CTA Chest W/WO Contrast IMPRESSION: Minor atelectasis within the dependent portion of both lungs more pronounced on the right.. ASHD without evidence for aortic aneurysm. No acute cardiopulmonary pathology. No evidence for pulmonary embolus Electronically Signed: Yury Henry MD at 16:28 EST Reading Location ID and State: [facility] / [place] Tel , Service support , CC: Dr. Gladis Nava MD; Dr. Jaya Quick DO Logistics Director: Signed Normal [facility] Carbon dioxide measurementOr dered By: Gladis Nava on 07-28-2024 CO2 [Moles/Vol] 24.0 mmol/L 21.0-32.0 [facility] Chloride measurementOrdered By: Gladis Nava on 07-28-2024 Chloride [Moles/Vol] 102 mmol/L 98-107 [facility] Comprehensive Metabolic Prof ilon 07-28-2024 Albumin [Mass/Vol] 3.8 g/dL Normal 3.2-5.0 [facility] Comment on above: Order Comment: Order Date: 07/27/24Order Info: 0786-1 - CMPOrder Info: [id number] - CRP Performed By: #### L 502.0250 #### [facility] [address] [place], [place], [address] Albumin/Globulin [Mass ratio] 1.0 {ratio} Normal 0.9-2.4 [facility] Comment on above: Order Comment: Order Date: 07/27/24Order Info: 0786-1 - CMPOrder Info: [id number] - CRP Performed By: #### L 502.0250 #### [facility] [address] [place], [place], [id number] ALK P 64 U/L Normal 45-117 [facility] Comment on above: Order Comment: Order Date: 07/27/24Order Info: 0786-1 - CMPOrder Info: [id number] - CRP Performed By: #### L 502.0250 #### [facility] [address] [place], [address] ALT [Catalytic activity/Vol] 24 U/L Normal 16-61 [facility] Comment on above: Order Comment: Order Date: 07/27/24Order Info: 0786-1 - CMPOrder Info: [id number] - CRP Performed By: #### L 502.0250 #### [facility] [address] [place], [address] AST [Catalytic activity/Vol] 12 U/L Low 15-37 [facility] Comment on above: Order Comment: Order Date: 07/27/24Order Info: 0786-1 - CMPOrder Info: [id number] - CRP Performed By: #### L 502.0250 #### [facility] [address] [place], [address] Bilirubin [Mass/Vol] 0.50 mg/dL Normal 0.20-1.00 [facility] Comment on above: Order Comment: Order Date: 07/27/24Order Info: 0786-1 - CMPOrder Info: [id number] - CRP Result Comment: For patients on eltrombopag therapy, use of Dimension [place] TBIL is not recommended. Performed By: #### L 502.0250 #### [facility] [address] [place], [address] BUN/CRE 18.7 RATIO Normal 10-20 [facility] Comment on above: Order Comment: Order Date: 07/27/24Order Info: 0786-1 - CMPOrder Info: [id number] - CRP Performed By: #### L 502.0250 #### [facility] [address] [place], [address] CA,Total 9.3 mg/dL Normal 8.5-10.1 [facility] Comment on above: Order Comment: Order Date: 07/27/24Order Info: 0786-1 - CMPOrder Info: [id number] - CRP Performed By: #### L 502.0250 #### [facility] [address] [place], [address] Chloride [Moles/Vol] 102 mmol/L Normal 98-107 [facility] Comment on above: Order Comment: Order Date: 07/27/24Order Info: 0786-1 - CMPOrder Info: [id number] - CRP Performed By: #### L 502.0250 #### [facility] [address] [place], [address] CO2 [Moles/Vol] 24.0 mmol/L Normal 21.0-32.0 [facility] Comment on above: Order Comment: Order Date: 07/27/24Order Info: 0786-1 - CMPOrder Info: [id number] - CRP Performed By: #### L 502.0250 #### [facility] [address] [place], [address] Creatinine [Mass/Vol] 1.07 mg/dL Normal 0.70-1.30 [facility] Comment on above: Order Comment: Order Date: 07/27/24Order Info: 0786-1 - CMPOrder Info: [id number] - CRP Result Comment: The validity of the calculated GFR GFRAA in patients over 70 years has not been determined. Clinical correlation is essential. Performed By: #### L 502.0250 #### [facility] [address] [place], [address] EST GFR - AA 84 mL/min Normal >60 [facility] Comment on above: Order Comment: Order Date: 07/27/24Order Info: 0786-1 - CMPOrder Info: [id number] - CRP Result Comment: Afri can Marshallese GFR Calc Performed By: #### L 502.0250 #### [facility] [address] [place], [place], [address] GAP 7 Normal 5-15 [facility] Comment on above: Order Comment: Order Date: 07/27/24Order Info: 0786-1 - CMPOrder Info: [id number] - CRP Performed By: #### L 502.0250 #### [facility] [address] [place], [address] GFR/1.73 sq M.predicted among non-blacks MDRD (S/P/Bld) [Vol rate/Area] 70 mL/min/{1.73_m2} Normal >60 [facility] Comment on above: Order Comment: Order Date: 07/27/24Order Info: 0786-1 - CMPOrder Info: [id number] - CRP Result Comment: Non- GFR Calc Performed By: #### L 502.0250 #### [facility] [address] [place], [address] Globulin (S) [Mass/Vol] 4.0 g/dL Normal 2.2-4.2 [facility] Comment on above: Order Comment: Order Date: 07/27/24Order Info: 0786-1 - CMPOrder Info: [id number] - CRP Performed By: #### L 502.0250 #### [facility] [address] [place], [address] Glucose [Mass/Vol] 244 mg/dL High 74-106 [facility] Comment on above: Order Comment: Order Date: 07/27/24Order Info: 0786-1 - CMPOrder Info: [id number] - CRP Result Comment: Gluc ose result greater than or equal to 200 mg/dL suggests DIABETES MELLITUS per A.D.A. criteria. Performed By: #### L 502.0250 #### [facility] [address] [place], [address] Potassium [Moles/Vol] 4.1 mmol/L Normal 3.5-5.1 [facility] Comment on above: Order Comment: Order Date: 07/27/24Order Info: 0786-1 - CMPOrder Info: [id number] - CRP Performed By: #### L 502.0250 #### [facility] [address] [place], [address] Sodium [Moles/Vol] 132 mmol/L Low 136-145 [facility] Comment on above: Order Comment: Order Date: 07/27/24Order Info: 0786-1 - CMPOrder Info: [id number] - CRP Performed By: #### L 502.0250 #### [facility] [address] [place], [address] T PROT 7.8 g/dL Normal 6.4-8.2 [facility] Comment on above: Order Comment: Order Date: 07/27/24Order Info: 0786-1 - CMPOrder Info: [id number] - CRP Performed By: #### L 502.0250 #### [facility] [address] [place], [address] Urea nitrogen [Mass/Vol] 20 mg/dL High 7-18 [facility] Comment on above: Order Comment: Order Date: 07/27/24Order Info: 0786-1 - CMPOrder Info: [id number] - CRP Performed By: #### L 502.0250 #### [facility] [address] [place], [address] D-Dimer Quantitative (DVT/PE )on 07-28-2024 D-DIMER QUANT 1.04 FEU/ug/m Invalid Interpretation Code 0.27-0.49 [facility] Comment on above: Order Comment: Order Date: 07/27/24Order Info: [id number] - DDIMQ Result Comment: D-Di kevin ELEVATED (>0.49): Additional studies and clinical assessments are indicated to conclude diagnosis of: Deep Vein Thrombosis (DVT) or Pulmonary Embolism (PE) CRITICAL VALUE CALLED TO RIGOBERTO 07/28/24 Dion Chandra. RESULTS READ BACK BY SAME. Performed By: #### L 502.0250 #### [facility] [address] [place], [address] D-dimer measurement for deep venous thrombosisOrdered By: Gladis Nava on 07-28-2024 D-Dimer Quantitative (PE/DVT) 1.04 FEU/ug/m High 0.27-0.49 [facility] Comment on above: D-Dimer ELEVATED (>0 .49): Additional studies and clinicalassessments are indicated to conclude diagnosis of:Deep Vein Thrombosis (DVT) or Pulmonary Embolism (PE)CRITICAL VALUE CALLED TO [id number]/14/25 1343 Mahsa Chandra.RESULTS READ BACK BY SAME. Emergency Department Summary on 07-28-2024 Emergency Department Summary [facility] Medical Records Department [address] [place] [address] Emergency Department Summary 07/28/24 MR#: [id number] Acct: [id number] Name: CINDY COSTA Rep #: [id number] : 1940 84 From: Jaya Quick DO PCP: Dr. Gladis Nava MD Status:REG ER Location: ED HPI History of Present Illness Chief Complaint: Abn Labs Narrative Narrative: Patient is a 84-year-old male past medical history of asthma, PE, DVT, FREDI, hypertension, hyperlipidemia who presented to the emergency department after having blood work obtained in the outpatient setting and it was abnormal. His doctor called him and advised him to come to the emergency department to have this followed up on. Patient states that he was seen by his physician yesterday as he had not been feeling well for the past couple days he states that yesterday he was given some medications that helped him feel much improved by this morning. He states that he was given a steroid he was using inhaler and does not recall the other medication name. Patient states that he is unsure why he had a PE and DVT in the past he states that he is not on any blood thinning medications currently. [facility] Medical History Pulmonary hypertension DVT (deep venous thrombosis) Pulmonary emboli Asthma Iron deficiency anemia FREDI (obstructive sleep apnea) Daytime hypersomnia Allergic rhinitis ankle surgery DDD (degenerative disc disease) Syncope and collapse Hypogonadism BPH (benign prostatic hyperplasia) Hypertension Hyperlipidemia Shortness of breath on exertion Cough Restrictive lung disease GERD (gastroesophageal reflux disease) Cough Bronchitis Wheezing Home Medications ???Medication ???Instructions ???Recorded ???Last Taken ???Type ferrous sulfate 325 mg (65 mg 325 mg PO DAILY #90 tabs 03/04/18 Unknown Rx iron) tablet donepezil 5 mg tablet 5 mg PO QHS . 09/03/22 09/02/22 History fluticasone propionate 50 2 spray intranasal DAILY #16 grams 01/14/23 Unknown Rx mcg/actuation nasal spray,suspension ramipril 2.5 mg capsule 2.5 mg PO DAILY 01/14/23 Unknown History fluticasone 500 mcg-salmeterol 50 1 inh inhalation BID #60 ea 09/16/23 Unknown Rx mcg/dose blistr powdr for inhalation (Wixela Inhub) albuterol sulfate 90 mcg/actuation 2 puff inhalation Q4H PRN 10/16/23 Unknown Rx aerosol inhaler shortness of breath or wheezing #8.5 grams Allergy/AdvReac Type Severity Reaction Status Date / Time azithromycin Allergy unknown Verified 07/28/24 15:00 ciprofloxacin (From Cipro) Allergy confusion Verified 07/28/24 15:00 Environmental Allergies: Allergy NEEDS Verified 07/28/24 15:00 Uncoded FOLLOW-UP Family History Brother Heart disease Surgical History H/O bilateral inguinal hernia repair History of prostate surgery H/O sinus surgery Social History household members: spouse number of children: 4 current occupational status: retired Smoking Status: Never smoker second hand exposure: No alcohol intake: never substance use type: does not use ROS ROS ED ROS Narrative Constitutional: Denies any fevers, chills, headaches, lightness, dizziness Eyes: Denies change in vision double vision blurry vision Cardiovascular: Denies chest pain or palpitations Respiratory: Complains of cough and shortness of breath as well as wheezing noted above Abdomen: Denies abdominal pain nausea vomit diarrhea : Denies any urinary symptoms Neurological: Denies any numbness, weakness, tingling Musculoskeletal: Denies back pain Skin: Denies any rashes or lesions EXAM Physical Exam Narrative Exam Narrative: General: Patient lying in bed rest comfortably did not appear to be acute distress Head: Atraumatic, normocephalic Eyes: PERRL bilaterally, EOMI bilaterally, no conjunctival injection noted Neck: Soft, supple, trachea midline Cardiovascular: Regular rate and rhythm no murmurs gallops rubs noted Respiratory: Clear to auscultation bilaterally no rales rhonchi or wheezes noted Abdomen: Soft, nondistended, nontender to palpation, bowel sounds present x 4 Extremities: +5/5 strength noted in the bilateral upper and lower extremities, radial pulses +2/4 in the bilateral per extremities, no pedal edema no exam Neurological: Patient following commands knew that he was at [facility] year is 2023 Skin: Warm, dry, intact Const Vital Signs: 07/28/24 15:00 07/28/24 15:50 07/28/24 16:18 Temperature 97.2 F L Temperature Source Temporal Pulse Rate 86 90 Respiratory Rate 16 16 Respiratory Effort Normal Non-Labored Respiratory Pattern N (more content not included)... Normal [facility] Eosinophil percentageOrdered By: Gladis Nava on 07-28-2024 Eosinophils/100 WBC (Bld) 0.1 % 0-5 [facility] Erythrocyte Sed Rateon 07-28 SED RATE 29 mm/hr High 0-20 [facility] Comment on above: Order Comment: Order Date: 07/27/24Order Info: [id number] - CBCDOrder Info: [id number] - SED Performed By: #### L 502.0250 #### [facility], [address] Erythrocyte distribution wid th ratioOrdered By: Gladis Nava on 07-28-2024 Erythrocyte distribution width (RBC) [Ratio] 12.8 % 11.6-14.6 [facility] Erythrocyte distribution wid th standard deviationOrdered By: Gladis Nava on 07-28-2024 Erythrocyte distribution width (RBC) [Entitic vol] 41.8 fL 35.1-43.9 [facility] Erythrocyte distribution width (RBC) [Ratio] 41.8 fl 35.1-43.9 [facility] Erythrocyte sedimentation ra teOrdered By: Galdis Nava on 07-28-2024 ESR (Bld) [Velocity] 29 mm/h High 0-20 [facility] Estimated glomerular filtrat ion rate (GFR) AmericanOrdered By: Gladis Nava on 07-28-2024 Estimated GFR (MDRD) Amer 84 mL/min >60 [facility] Comment on above: GFR Calc Gamma globulin measurement b y protein electrophoresisOrdered By: Gladis Nava on 07-28-2024 Gamma Globulins 1.2 g/dL 0.4-1.8 [facility] Globulin (S) [Mass/Vol]Order ed By: Gladis Nava on 07-28-2024 Globulin (PEP) 3.5 g/dL 2.2-3.9 [facility] Glomerular filtration rate ( GFR) estimationOrdered By: Gladis Nava on 07-28-2024 Estimated GFR (MDRD) Non-Af Amer 70 mL/min >60 [facility] Comment on above: Non- GFR Calc GFR/1.73 sq M.predicted among non-blacks MDRD (S/P/Bld) [Vol rate/Area] 70 mL/min/{1.73_m2} >60 [facility] Comment on above: Non- GFR Calc Glucose measurementOrdered B y: Gladis Nava on 07-28-2024 Glucose [Mass/Vol] 244 mg/dL High 74-106 [facility] Comment on above: Glucose result great er than or equal to 200 mg/dLsuggests DIABETES MELLITUS per A.D.A. criteria. Hematocrit Auto (Bld) [Volum e fraction]Ordered By: Gladis Nava on 07-28-2024 Hematocrit (Bld) [Volume fraction] 41.8 % 40-54 [facility] Hemoglobin measurementOrdere d By: Gladis Nava on 07-28-2024 Hemoglobin (Bld) [Mass/Vol] 14.4 g/dL 13.0-16.5 [facility] Immature granulocytes/100 WB C Auto (Bld)Ordered By: Gladis Nava on 07-28-2024 Immature granulocytes/100 WBC (Bld) 0.500 % 0.0-0.9 [facility] Comment on above: IG% - Immature Granu locytes (promyelocytes, myelocytes and metamyelocytes) > 1% indicates that a LEFT SHIFT is Present. Laboratory - Chemistry and C hemistry - challengeOrdered By: Gladis Nava on 07-28-2024 AST [Catalytic activity/Vol] 12 U/L Low 15-37 [facility] Lymphocytes Auto (Unsp spec) [#/Vol]Ordered By: Gladis Nava on 07-28-2024 Lymphocytes (Bld) [#/Vol] 0.61 10*3/uL Low 0.83-4.51 [facility] Lymphocytes/100 WBC Auto (Un sp spec)Ordered By: Gladis Nava on 07-28-2024 Lymphocytes/100 WBC (Bld) 7.5 % Low 19-41 [facility] MCV (mean corpuscular volume ) determinationOrdered By: Gladis Nava on 07-28-2024 MCV (RBC) [Entitic vol] 89.3 fL 80-94 [facility] Mean corpuscular hemoglobin (MCH) determinationOrdered By: Gladis Nava on 07-28-2024 MCH (RBC) [Entitic mass] 30.8 pg 27.0-32.0 [facility] Mean corpuscular hemoglobin concentration (MCHC) determinationOrdered By: Gladis Nava on 07-28-2024 MCHC (RBC) [Mass/Vol] 34.4 g/dL 32-36 [facility] Mean platelet volume determi nationOrdered By: Gladis Nava on 07-28-2024 Platelet mean volume (Bld) [Entitic vol] 8.7 fL 6.2-12.0 [facility] Monocyte percentageOrdered B y: Gladis Nava on 07-28-2024 Monocytes/100 WBC (Bld) 6.3 % 0-10 [facility] Neutrophil percentageOrdered By: Gladis Nava on 07-28-2024 Neutrophils/100 WBC (Bld) 85.4 % High 47-70 [facility] No Panel InformationOrdered By: Gladis Nava on 07-28-2024 Addendum Document Comment . [facility] Comment on above: The SPE pattern appe ars unremarkable. Evidence ofmonoclonal protein is not apparent.Performed at: [address] [id number] Director: Kike Alfaro PhD, Phone: [phone] Nucleated red blood cell per centageOrdered By: Gladis Nava on 07-28-2024 Nucleated RBC/100 WBC (Bld) [Ratio] 0 % 0-5 [facility] Platelet countOrdered By: Robert Nava on 07-28-2024 Platelets (Bld) [#/Vol] 323 10*3/uL 150-450 [facility] Potassium measurementOrdered By: Gladis Nava on 07-28-2024 Potassium [Moles/Vol] 4.1 mmol/L 3.5-5.1 [facility] Protein Fractions Elph [Inte rp]Ordered By: Gladis Nava on 07-28-2024 Protein Electrophoresis Interpret Comment . [facility] Comment on above: Protein electrophore sis scan will follow via computer,mail, or category manager delivery. Protein Fractions [Interp] Comment . [facility] Comment on above: Protein electrophore sis scan will follow via computer,mail, or category manager delivery. Protein.monoclonal Elph [Mas s/Vol]Ordered By: Gladis Nava on 07-28-2024 Protein Electrophoresis M-Fam Not Observed g/dL Not Observed [facility] RBC Auto (Bld) [#/Vol]Ordere d By: Gladis Nava on 07-28-2024 RBC (Bld) [#/Vol] 4.68 10*6/uL 4.6-6.[address] [facility] Serum albumin to globulin ra beto by protein electrophoresisOrdered By: Gladis Nava on 07-28-2024 Albumin/Globulin Elph [Mass ratio] 1.0 0.7-1.7 [facility] Serum anion gap measurementO rdered By: Gladis Nava on 07-28-2024 Anion gap [Moles/Vol] 7 mmol/L 5-15 [facility] Serum globulin measurementOr dered By: Gladis Nava on 07-28-2024 Globulin (S) [Mass/Vol] 4.0 g/dL 2.2-4.2 [facility] Serum globulin measurement ( mass/volume)Ordered By: Gladis Nava on 07-28-2024 Globulin (S) [Mass/Vol] 3.5 g/dL 2.2-3.9 [facility] Serum or plasma alanine chawla otransferase (ALT) measurementOrdered By: Gladis Nava on 07-28-2024 ALT [Catalytic activity/Vol] 24 U/L 16-61 [facility] Serum or plasma albumin alisson urement (mass/volume)Ordered By: Gladis Nava on 07-28-2024 Albumin [Mass/Vol] 3.8 g/dL 3.2-5.0 [facility] Serum or plasma alkaline sukh sphatase measurementOrdered By: Gladis Nava on 07-28-2024 ALP [Catalytic activity/Vol] 64 U/L 45-117 [facility] Serum or plasma beta globuli n measurement by electrophoresis (mass/volume)Ordered By: Gladis Nava on 07-28-2024 Beta globulin Elph [Mass/Vol] 1.2 g/dL 0.7-1.3 [facility] Serum or plasma calcium alisson urement (mass/volume)Ordered By: Gladis Nava on 07-28-2024 Calcium [Mass/Vol] 9.3 mg/dL 8.5-10.1 [facility] Serum or plasma creatinine m easurement (mass/volume)Ordered By: Gladis Nava on 07-28-2024 Creatinine [Mass/Vol] 1.07 mg/dL 0.70-1.30 [facility] Comment on above: The validity of the calculated GFR & GFRAA in patients over 70 years has not been determined. Clinical correlation is essential. Serum or plasma protein alisson urement (mass/volume)Ordered By: Gladis Nava on 07-28-2024 Protein [Mass/Vol] 7.1 g/dL 6.0-8.5 [facility] Serum or plasma protein mono clonal measurement by electrophoresis (mass/volume)Ordered By: Gladis Nava on 07-28-2024 Protein.monoclonal Elph [Mass/Vol] Not Observed g/dL Not Observed [facility] Serum or plasma urea nitroge n measurement (mass/volume)Ordered By: Gladis Nava on 07-28-2024 Urea nitrogen [Mass/Vol] 20 mg/dL High 7-18 [facility] Sodium levelOrdered By: Gladis Nava on 07-28-2024 Sodium [Moles/Vol] 132 mmol/L Low 136-145 [facility] Total proteinOrdered By: Danika Nava on 07-28-2024 Protein [Mass/Vol] 7.8 g/dL 6.4-8.2 [facility] White blood cell (WBC) count Ordered By: Gladis Nava on 07-28-2024 WBC (Bld) [#/Vol] 8.2 10*3/uL 4.4-11.0 [facility] Chest PA and Lateralon 07-27 Chest PA and Lateral [facility] [address], [place] [address] Chest PA and Lateral MR#: [id number] Acct: [id number] Name: CINDY COSTA Rep #: [id number] : 1940 M 84 From: Riri Abbasi PCP: Dr. Gladis Nava MD Status: [facility] CLI Study: Chest PA and Lateral Date of Exam: 07/27/24 Exam# [id number] Ordering Dr: Gladis Nava MD [id number] INDICATION: BRONCHITIS EXAMINATION/TECHNIQUE: X-RAY - XR Chest 2 Views COMPARISON: Prior study dated: 09/03/2022. FINDINGS: LINES/DEVICES: None. LUNGS: No consolidation. No pneumothorax. MEDIASTINUM: Aorta is atherosclerotic. Hiatal hernia. CARDIAC SILHOUETTE: Not enlarged. BONES AND SOFT TISSUES: No acute abnormalities. RAD/Chest PA and Lateral IMPRESSION: No evidence of active intrathoracic disease. Hiatal hernia. Electronically Signed: Riri Irving MD at 8:17 EST , CC: Dr. Gladis Nava MD Logistics Director: Signed Normal [facility] Urine Cultureon 01-01-2024 [facility] RE ORDERED, UNABLE T O CHANGE SOURCE FROM INT TO URINE Proteus mirabilis [place] Count 50,000-80,000 Proteus mirabilis: REACTION Ampicillin Islt GAETANO <=2 S Ampicillin+Sulbac Islt GAETANO <=2 S ceFAZolin Islt GAETANO <=4 S Cefepime Islt GAETANO <=0.12 S cefTRIAXone Islt GAETANO <=0.25 S Ciprofloxacin Islt GAETANO <=0.25 S Ertapenem Islt GAETANO <=0.12 S Gentamicin Islt GAETANO <=1 S levoFLOXacin Islt GAETANO <=0.12 S Nitrofurantoin Islt GAETANO 128 R Pip+Tazo Islt GAETANO <=4 S Tobramycin Islt GAETANO <=1 S TMP SMX Islt GAETANO <=20 S Normal [facility] Comment on above: Performed By: #### L 501.9520, L501.9985, L100.0100, L501.1200, L400.0001, L500.4050, L502.0500 #### [facility] [address] [place], [address] Comprehensive Metabolic Prof ilon 12-30-2023 Albumin [Mass/Vol] 3.7 g/dL Normal 3.2-5.0 [facility] Comment on above: Order Comment: Order Date: 12/13/23Order Info: [id number] - CMPOrder Info: [id number] - PSA Performed By: #### L 502.0250 #### [facility] [address] [place], [address] Albumin/Globulin [Mass ratio] 1.0 {ratio} Normal 0.9-2.4 [facility] Comment on above: Order Comment: Order Date: 12/13/23Order Info: [id number] - CMPOrder Info: [id number] - PSA Performed By: #### L 502.0250 #### [facility] [address] [place], [address] ALK P 45 U/L Normal 45-117 [facility] Comment on above: Order Comment: Order Date: 12/13/23Order Info: [id number] - CMPOrder Info: [id number] - PSA Performed By: #### L 502.0250 #### [facility] [address] [place], [address] ALT [Catalytic activity/Vol] 23 U/L Normal 16-61 [facility] Comment on above: Order Comment: Order Date: 12/13/23Order Info: [id number]- - CMPOrder Info: [id number]- - PSA Performed By: #### L 502.0250 #### [facility] [address] [place], [address] AST [Catalytic activity/Vol] 13 U/L Low 15-37 [facility] Comment on above: Order Comment: Order Date: 12/13/23Order Info: [id number] - CMPOrder Info: [id number] - PSA Performed By: #### L 502.0250 #### [facility] [address] [place], [address] Bilirubin [Mass/Vol] 0.40 mg/dL Normal 0.20-1.00 [facility] Comment on above: Order Comment: Order Date: 12/13/23Order Info: 07 - CMPOrder Info: [id number]- - PSA Result Comment: For patients on eltrombopag therapy, use of Dimension [place] TBIL is not recommended. Performed By: #### L 502.0250 #### [facility] [address] [place], [address] BUN/CRE 18.1 RATIO Normal 10-20 [facility] Comment on above: Order Comment: Order Date: 12/13/23Order Info: [id number] - CMPOrder Info: [id number] - PSA Performed By: #### L 502.0250 #### [facility] [address] [place], [address] CA,Total 9.2 mg/dL Normal 8.5-10.1 [facility] Comment on above: Order Comment: Order Date: 12/13/23Order Info: 07 - CMPOrder Info: [id number] - PSA Performed By: #### L 502.0250 #### [facility] [address] [place], [address] Chloride [Moles/Vol] 105 mmol/L Normal 98-107 [facility] Comment on above: Order Comment: Order Date: 12/13/23Order Info: [id number] - CMPOrder Info: [id number] - PSA Performed By: #### L 502.0250 #### [facility] [address] [place], [address] CO2 [Moles/Vol] 26.0 mmol/L Normal 21.0-32.0 [facility] Comment on above: Order Comment: Order Date: 12/13/23Order Info: [id number] - CMPOrder Info: [id number] - PSA Performed By: #### L 502.0250 #### [facility] [address] [place], [address] Creatinine [Mass/Vol] 1.27 mg/dL Normal 0.70-1.30 [facility] Comment on above: Order Comment: Order Date: 12/13/23Order Info: [id number] - CMPOrder Info: [id number] - PSA Result Comment: The validity of the calculated GFR GFRAA in patients over 70 years has not been determined. Clinical correlation is essential. Performed By: #### L 502.0250 #### [facility] [address] [place], [address] EST GFR - AA 69 mL/min Normal >60 [facility] Comment on above: Order Comment: Order Date: 12/13/23Order Info: 07 - CMPOrder Info: [id number] - PSA Result Comment: Afri can Marshallese GFR Calc Performed By: #### L 502.0250 #### [facility] [address] [place], [address] GAP 6 Normal 5-15 [facility] Comment on above: Order Comment: Order Date: 12/13/23Order Info: [id number] - CMPOrder Info: [id number] - PSA Performed By: #### L 502.0250 #### [facility] [address] [place], [address] GFR/1.73 sq M.predicted among non-blacks MDRD (S/P/Bld) [Vol rate/Area] 57 mL/min/{1.73_m2} Low >60 [facility] Comment on above: Order Comment: Order Date: 12/13/23Order Info: [id number]- - CMPOrder Info: [id number] - PSA Result Comment: Non- GFR Calc Performed By: #### L 502.0250 #### [facility] [address] [place], [address] Globulin (S) [Mass/Vol] 3.8 g/dL Normal 2.2-4.2 [facility] Comment on above: Order Comment: Order Date: 12/13/23Order Info: [id number] - CMPOrder Info: [id number] - PSA Performed By: #### L 502.0250 #### [facility] [address] [place], [address] Glucose [Mass/Vol] 186 mg/dL High 74-106 [facility] Comment on above: Order Comment: Order Date: 12/13/23Order Info: 0786- - CMPOrder Info: [id number] - PSA Result Comment: Fast ing Glucose result greater than or equal to 126 mg/dL suggests DIABETES MELLITUS per A.D.A. criteria. Performed By: #### L 502.0250 #### [facility] [address] [place], [address] Potassium [Moles/Vol] 4.7 mmol/L Normal 3.5-5.1 [facility] Comment on above: Order Comment: Order Date: 12/13/23Order Info: 0786- - CMPOrder Info: [id number] - PSA Performed By: #### L 502.0250 #### [facility] [address] [place], [address] Sodium [Moles/Vol] 137 mmol/L Normal 136-145 [facility] Comment on above: Order Comment: Order Date: 12/13/23Order Info: 07 - CMPOrder Info: [id number] - PSA Performed By: #### L 502.0250 #### [facility] [address] [place], [address] T PROT 7.5 g/dL Normal 6.4-8.2 [facility] Comment on above: Order Comment: Order Date: 12/13/23Order Info: [id number] - CMPOrder Info: [id number] - PSA Performed By: #### L 502.0250 #### [facility] [address] [place], [address] Urea nitrogen [Mass/Vol] 23 mg/dL High 7-18 [facility] Comment on above: Order Comment: Order Date: 12/13/23Order Info: [id number] - CMPOrder Info: [id number] - PSA Performed By: #### L 502.0250 #### [facility] [address] [place], [address] Microalb:Creat Ratio,Random URon 12-30-2023 Creatinine [Mass/Vol] 85.80 mg/dL Normal NO RAN GE EST. [facility] Comment on above: Performed By: #### L 502.0250 #### [facility] [address] [place], [address] MALB:CRE TNP Normal <30 mg/g CRE [facility] Comment on above: Performed By: #### L 502.0250 #### [facility] [address] [place], [address] MICROALBUMIN,UR < 5.0 Normal NO RANGE EST. [facility] Comment on above: Performed By: #### L 502.0250 #### [facility] [address] [place], [address] PSA,Total - Annual Screenon 12-30-2023 PSA,TOT SCREEN 1.64 ng/mL Normal 0.00-4.00 [facility] Comment on above: Order Comment: Order Date: 08/10/24 Order Info: [id number] - BMP Order Date: 08/13/24 Order Info: [id number] - CMP Order Info: [id number] - TSH Result Comment: This test was performed using the TPSA assay method for the [employer] chemistry system. Values obtained with different assay methods cannot be used interchangably. When changing PSA assays in the course of monitoring a patient, additional sequential testing should be carried out to confirm baseline values. Performed By: #### L 501.9520, L501.9985, L100.0100, L501.1200, L400.0001, L500.4050, L502.0500 #### [facility] [address] [place], [address] Urinalysis, Completeon 12-29 RBC 0-5 SEEN Normal 0-5 [facility] Comment on above: Order Comment: Order Date: 12/13/23Order Info: [id number] - UACCOLLECTOR TO SPECIFY Performed By: #### L 502.0250 #### [facility] [address] [place], [address] WBC 0-5 SEEN Normal 0-5 [facility] Comment on above: Order Comment: Order Date: 12/13/23Order Info: [id number] - UACCOLLECTOR TO SPECIFY Performed By: #### L 502.0250 #### [facility] [address] [place], [address] BACTERIA 1+ /hpf Normal None Seen [facility] Comment on above: Order Comment: Order Date: 12/13/23Order Info: [id number] - UACCOLLECTOR TO SPECIFY Performed By: #### L 502.0250 #### [facility] [address] [place], [address] EPI,SQUAMOUS 0-5 SEEN Normal 0-5 [facility] Comment on above: Order Comment: Order Date: 12/13/23Order Info: [id number] - UACCOLLECTOR TO SPECIFY Performed By: #### L 502.0250 #### [facility] [address] [place], [address] Mucus Ql (Urine sed) 0 SEEN Normal [facility] Comment on above: Order Comment: Order Date: 12/13/23Order Info: [id number] - UACCOLLECTOR TO SPECIFY Performed By: #### L 502.0250 #### [facility] [address] [place], [address] POCT UA (nonautomated) marianna akersgreg 11-29-2023 Appearance (U) Clear Clear [facility] Work Phone: [phone] Glucose Test strip (U) [Mass/Vol] 100 (1+) Abnormal NEGATIVE mg/dl [facility] Work Phone: [phone] Hemoglobin Ql (U) Negative NEGATIVE [facility] Work Phone: [phone] Interpretation and review of laboratory results Abnormal [facility] Work Phone: [phone] Leukocyte esterase Test strip Ql (U) Negative NEGATIVE [facility] Work Phone: [phone] Nitrite Ql (U) Negative NEGATIVE [facility] Work Phone: [phone] pH (U) 7.5 [pH] No Reference Range Established [facility] Work Phone: [phone] POC Bilirubin, Urine Negative NEGATIVE [facility] Work Phone: [phone] POC Color, Urine Yellow Straw, Yellow, Light-Yellow [facility] Work Phone: [phone] POC Ketones, Urine Negative NEGATIVE mg/dl [facility] Work Phone: POC Protein, Urine Negative NEGATIVE, 30 (1+) mg/dl [facility] Work Phone: POC Specific Nicholson, Urine 1.020 1.005 - 1.035 [facility] Work Phone: POC Urobilinogen, Urine 0.2 0.2, 1.0 EU/DL [facility] Work Phone: [facility] Work Phone: MR PROSTATE CONOR BOUNDARIESon 10-11-2023 MR PROSTATE CONOR BOUNDARIES Interpreted By: iMsty Parr, and Seema Awan STUDY: MR PROSTATE CONOR BOUNDARIES; 10/11/2023 11:15 am INDICATION: Signs/Symptoms:BPH with lower urinary tract symptoms, prostate volume for surgical planning, fuison if abnromal. Per EMR: Patient is an 83-year-old male with history of lower urinary tract symptoms. No PSA available. COMPARISON: None. ACCESSION NUMBER(S): [id number] ORDERING CLINICIAN: MARLON DEL VALLE TECHNIQUE: Multiplanar MRI of the pelvis was obtained including axial, sagittal and coronal T2 weighted SSFSE, axial and sagittal T2 FSE, axial DWI, pre and post gadolinium dynamic T1 GRE sequences. Multiparametric analysis was performed. 23 mL Dotarem gadolinium based contrast was administered intravenously without immediate complications. FINDINGS: PROSTATE VOLUME: The prostate measures 5.5 cm x 2.1 cm x 4.2 cm in vvmsh-in-egws, anterior-posterior and craniocaudal dimension. Prostate weight is estimated at 23.6g. PSA density is 0.04 ng/mL/g. PROSTATE PARENCHYMA: There is heterogeneous enlargement of the transition zone, consistent with benign prostatic hyperplasia changes. Suspected TURP defect is identified. The peripheral zone is diffusely heterogenous on T2WI, with bilateral polygonal and wedge-shaped T2-hypointense areas, that show no signs of abnormally restricted diffusion (PI-RADS 2). EXTRACAPSULAR EXTENSION: None. SEMINAL VESICLES: Within normal limits. PELVIC LYMPH NODES: No abnormally enlarged pelvic lymph nodes are identified. PERITONEUM: No free or loculated fluid collections are evident in the pelvis. OTHER ORGANS: There is mild circumferential thickening of the bladder, with prominent trabeculation and small diverticula, likely sequela of chronic outlet obstruction. Scattered sigmoid diverticulosis without acute diverticulitis. BONES: No focal lesions are noted in the bone. Exam Quality: Is T2WI weighted imaging of diagnostic quality: Yes. T2WI assessment: Adequate. Is DWI of diagnostic quality: Yes. DWI assessment: Adequate. Is DCE of diagnostic quality: Yes. DCE assessment: Adequate. PI-QUAL score: Two or more sequences independently are of diagnostic quality Comments: IMPRESSION: *No evidence of clinically significant prostatic neoplasm. *Diffuse non nodular hypointensities within the peripheral zone, without evidence of focally restricted diffusion ( PI-RADS 2). I personally reviewed the images/study and I agree with the findings as stated by Lv Stephenson MD. This study was interpreted at [place], [place]. MACRO: None Signed by: Misty Parr 10/13/2023 10:33 PM Dictation workstation: [id number] Normal [facility] Measure post void residualon 09-27-2023 pvr= 60 mL [facility] Work Phone: [facility] Work Phone: [phone] POCT UA Automated manually r esultedon 09-27-2023 Appearance (U) Cloudy Abnormal Clear [facility] Work Phone: Glucose Test strip (U) [Mass/Vol] Negative NEGATIVE mg/dl [facility] Work Phone: [phone] Hemoglobin Ql (U) SMALL (1+) Abnormal NEGATIVE [facility] Work Phone: [phone] Interpretation and review of laboratory results Abnormal [facility] Work Phone: Leukocyte esterase Test strip Ql (U) LARGE (3+) Abnormal NEGATIVE [facility] Work Phone: Nitrite Ql (U) Negative NEGATIVE [facility] Work Phone: pH (U) 6.5 [pH] No Reference Range Established [facility] Work Phone: POC Bilirubin, Urine Negative NEGATIVE [facility] Work Phone: POC Color, Urine Yellow Straw, Yellow, Light-Yellow [facility] Work Phone: POC Ketones, Urine Negative NEGATIVE mg/dl [facility] Work Phone: [phone] POC Protein, Urine TRACE Abnormal NEGATIVE, 30 (1+) mg/dl [facility] Work Phone: POC Specific Nicholson, Urine 1.025 1.005 - 1.035 [facility] Work Phone: POC Urobilinogen, Urine 0.2 0.2, 1.0 EU/DL [facility] Work Phone: [facility] Work Phone: Absolute lymphocyte countOrd ered By: Gladis Nava on 06-17-2023 Lymphocytes Auto (Unsp spec) [#/Vol] 0.89 10*3/uL 0.83-4.51 [facility] Basophil percentageOrdered B y: Gladis Nava on 06-17-2023 Basophils/100 WBC (Bld) 0.6 % 0-1 [facility] Bilirubin [Mass/Vol] 0.50 mg/dL 0.20-1.00 [facility] Comment on above: For patients on eltr ombopag therapy, use of Dimension [place] TBIL is not recommended. Chloride [Moles/Vol] 106 mmol/L 98-107 [facility] Eosinophils/100 WBC (Bld) 1.6 % 0-5 [facility] Glucose [Mass/Vol] 131 mg/dL 74-106 [facility] Comment on above: Fasting Glucose resu lt greater than or equal to 126 mg/dL suggests DIABETES MELLITUS per A.D.A. criteria. Neutrophils (Bld) [#/Vol] 4.6 10*3/uL 2.0-7.7 [facility] Neutrophils/100 WBC (Bld) 72.9 % 47-70 [facility] Potassium [Moles/Vol] 4.2 mmol/L 3.5-5.1 [facility] Protein [Mass/Vol] 7.4 g/dL 6.4-8.2 [facility] Sodium [Moles/Vol] 138 mmol/L 136-145 [facility] WBC (Bld) [#/Vol] 6.3 10*3/uL 4.4-11.0 [facility] Blood erythrocytes count (nu mber/volume)Ordered By: Gladis Nava on 06-17-2023 RBC (Bld) [#/Vol] 4.86 10*6/uL 4.6-6.[address] [facility] Blood hemoglobin measurement (mass/volume)Ordered By: Gladis Nava on 06-17-2023 Hemoglobin (Bld) [Mass/Vol] 14.6 g/dL 13.0-16.5 [facility] Blood lymphocytes/100 leukoc ytesOrdered By: Gladis Nava on 06-17-2023 Lymphocytes/100 WBC (Bld) 14.1 % 19-41 [facility] Blood monocytes/100 leukocyt esOrdered By: Gladis Nava on 06-17-2023 Monocytes/100 WBC (Bld) 10.3 % 0-10 [facility] Blood platelet mean volumeOr dered By: Gladis Nava on 06-17-2023 Platelet mean volume (Bld) [Entitic vol] 8.7 fL 6.2-12.0 [facility] Determination of erythrocyte mean corpuscular volume (MCV)Ordered By: Gladis Nava on 06-17-2023 MCV (RBC) [Entitic vol] 92.0 fL 80-94 [facility] Hematocrit Auto (Bld) [Volum e fraction]Ordered By: Gladis Nava on 06-17-2023 Hematocrit (Bld) [Volume fraction] 44.7 % 40-54 [facility] Laboratory - Chemistry and C hemistry - challengeOrdered By: Gladis Nava on 06-17-2023 ALP [Catalytic activity/Vol] 48 U/L 45-117 [facility] ALT [Catalytic activity/Vol] 22 U/L 16-61 [facility] CO2 [Moles/Vol] 27.0 mmol/L 21.0-32.0 [facility] Globulin (S) [Mass/Vol] 3.7 g/dL 2.2-4.2 [facility] Urea nitrogen/Creatinine [Mass ratio] 17.7 mg/mg 10-20 [facility] - Hematology and Cell countsOrdered By: Gladis Nava on 06-17-2023 Erythrocyte distribution width (RBC) [Entitic vol] 43.3 fL 35.1-43.9 [facility] Erythrocyte distribution width (RBC) [Ratio] 13.0 % 11.6-14.6 [facility] Immature granulocytes/100 WBC (Bld) 0.500 % 0.0-0.9 [facility] Comment on above: IG% - Immature Granu locytes (promyelocytes, myelocytes and metamyelocytes) > 1% indicates that a LEFT SHIFT is Present. MCH (RBC) [Entitic mass] 30.0 pg 27.0-32.0 [facility] Nucleated RBC/100 WBC (Bld) [Ratio] 0 % 0-5 [facility] MCHC Auto (RBC) [Mass/Vol]Or dered By: Gladis Nava on 06-17-2023 MCHC (RBC) [Mass/Vol] 32.7 g/dL 32-36 [facility] No Panel InformationOrdered By: Gladis Nava on 06-17-2023 Urine Microalbumin/Creatinine Ratio TNP [facility] Comment on above: Test not performed Estimated GFR (MDRD) Amer 80 mL/min >60 [facility] Comment on above: GFR Calc Estimated GFR (MDRD) Non-Af Amer 66 mL/min >60 [facility] Comment on above: Non- GFR Calc Platelets bldOrdered By: Danika Nava on 06-17-2023 Platelets (Bld) [#/Vol] 301 10*3/uL 150-450 [facility] Serum or plasma albumin alisson urement (mass/volume)Ordered By: Gladis Nava on 06-17-2023 Albumin [Mass/Vol] 3.7 g/dL 3.2-5.0 [facility] Serum or plasma albumin/glob ulin mass ratioOrdered By: Gladis Nava on 06-17-2023 Albumin/Globulin [Mass ratio] 1.0 {ratio} 0.9-2.4 [facility] Serum or plasma calcium alisson urement (mass/volume)Ordered By: Gladis Nava on 06-17-2023 Calcium [Mass/Vol] 8.9 mg/dL 8.5-10.1 [facility] Serum or plasma creatinine m easurement (mass/volume)Ordered By: Gladis Nava on 06-17-2023 Creatinine [Mass/Vol] 1.13 mg/dL 0.70-1.30 [facility] Comment on above: The validity of the calculated GFR & GFRAA in patients over 70 years has not been determined. Clinical correlation is essential. Serum or plasma urea nitroge n measurement (mass/volume)Ordered By: Gladis Nava on 06-17-2023 Urea nitrogen [Mass/Vol] 20 mg/dL 7-18 [facility] Thin prep Papanicolaou smear with manual screeningOrdered By: Gladis Nava on 06-17-2023 Thin prep Papanicolaou smear with manual screening < 5.0 mg/L NO RANGE EST. [facility] Thin prep Papanicolaou smear with manual screening 12 U/L 15-37 [facility] Thin prep Papanicolaou smear with manual screening 5 5-15 [facility] Urine creatinine measurement (mass/volume)Ordered By: Gladis Nava on 06-17-2023 Creatinine (U) [Mass/Vol] 53.60 mg/dL NO RANGE EST. [facility] Absolute lymphocyte countOrd ered By: Dr. Nava on 09-20-2022 Lymphocytes Auto (Unsp spec) [#/Vol] 1.01 10*3/uL 0.83-4.51 [facility] Basophil percentageOrdered B y: Dr. Nava on 09-20-2022 Basophils/100 WBC (Bld) 0.6 % 0-1 [facility] Bilirubin [Mass/Vol] 0.50 mg/dL 0.20-1.00 [facility] Comment on above: For patients on eltr ombopag therapy, use of Dimension [place] TBIL is not recommended. Chloride [Moles/Vol] 106 mmol/L 98-107 [facility] Eosinophils/100 WBC (Bld) 4.0 % 0-5 [facility] Glucose [Mass/Vol] 120 mg/dL 74-106 [facility] Comment on above: Fasting Glucose resu lt from 100 to 125 mg/dL suggests IMPAIRED HOMEOSTASIS per A.D.A. criteria. Neutrophils (Bld) [#/Vol] 4.9 10*3/uL 2.0-7.7 [facility] Neutrophils/100 WBC (Bld) 69.3 % 47-70 [facility] Potassium [Moles/Vol] 4.7 mmol/L 3.5-5.1 [facility] Protein [Mass/Vol] 7.6 g/dL 6.4-8.2 [facility] Sodium [Moles/Vol] 138 mmol/L 136-145 [facility] WBC (Bld) [#/Vol] 7.0 10*3/uL 4.4-11.0 [facility] Blood erythrocytes count (nu mber/volume)Ordered By: Dr. Nava on 09-20-2022 RBC (Bld) [#/Vol] 4.86 10*6/uL 4.6-6.[address] [facility] Blood hemoglobin measurement (mass/volume)Ordered By: Dr. Nava on 09-20-2022 Hemoglobin (Bld) [Mass/Vol] 14.6 g/dL 13.0-16.5 [facility] Blood lymphocytes/100 leukoc ytesOrdered By: Dr. Nava on 09-20-2022 Lymphocytes/100 WBC (Bld) 14.3 % 19-41 [facility] Blood monocytes/100 leukocyt esOrdered By: Dr. Nava on 09-20-2022 Monocytes/100 WBC (Bld) 11.4 % 0-10 [facility] Blood platelet mean volumeOr dered By: Dr. Nava on 09-20-2022 Platelet mean volume (Bld) [Entitic vol] 8.6 fL 6.2-12.0 [facility] Determination of erythrocyte mean corpuscular volume (MCV)Ordered By: Dr. Nava on 09-20-2022 MCV (RBC) [Entitic vol] 89.9 fL 80-94 [facility] Hematocrit Auto (Bld) [Volum e fraction]Ordered By: Dr. Nava on 09-20-2022 Hematocrit (Bld) [Volume fraction] 43.7 % 40-54 [facility] - Chemistry and C hemistry - challengeOrdered By: Dr. Nava on 09-20-2022 Albumin [Mass/Vol] 3.8 g/dL 2.9-4.4 [facility] ALP [Catalytic activity/Vol] 51 U/L 45-117 [facility] ALT [Catalytic activity/Vol] 19 U/L 16-61 [facility] CO2 [Moles/Vol] 23.0 mmol/L 21.0-32.0 [facility] Globulin (S) [Mass/Vol] 3.9 g/dL 2.2-4.2 [facility] Urea nitrogen/Creatinine [Mass ratio] 18.5 mg/mg 10-20 [facility] - Hematology and Cell countsOrdered By: Dr. Nava on 09-20-2022 Erythrocyte distribution width (RBC) [Entitic vol] 42.6 fL 35.1-43.9 [facility] Erythrocyte distribution width (RBC) [Ratio] 13.1 % 11.6-14.6 [facility] Immature granulocytes/100 WBC (Bld) 0.400 % 0.0-0.9 [facility] Comment on above: IG% - Immature Granu locytes (promyelocytes, myelocytes and metamyelocytes) > 1% indicates that a LEFT SHIFT is Present. MCH (RBC) [Entitic mass] 30.0 pg 27.0-32.0 [facility] Nucleated RBC/100 WBC (Bld) [Ratio] 0 % 0-5 [facility] MCHC Auto (RBC) [Mass/Vol]Or dered By: Dr. Nava on 09-20-2022 MCHC (RBC) [Mass/Vol] 33.4 g/dL 32-36 [facility] No Panel InformationOrdered By: Dr. Nava on 09-20-2022 Addendum Document Comment . [facility] Comment on above: The SPE pattern appe ars unremarkable. Evidence ofmonoclonal protein is not apparent.Performed at: - [address] [id number] Director: Kike Alfaro PhD, Phone: [phone] Tinvx-1-Qmzkfenns 0.3 g/dL 0.0-0.4 [facility] Crbhl-8-Nnrmwncvh 0.8 g/dL 0.4-1.0 [facility] Estimated GFR (MDRD) Amer 75 mL/min >60 [facility] Comment on above: GFR Calc Estimated GFR (MDRD) Non-Af Amer 62 mL/min >60 [facility] Comment on above: Non- GFR Calc Gamma Globulins 1.2 g/dL 0.4-1.8 [facility] Prostate Specific Antigen Total 2.90 ng/mL 0.0-4.0 [facility] Comment on above: This test was perfor med using the TPSA assay method for the[employer] chemistry system. Values obtained with differentassay methods cannot be used interchangably.When changing PSA assays in the course of monitoring apatient, additional sequential testing should be carriedout to confirm baseline values. Platelets bldOrdered By: Dr. Nava on 09-20-2022 Platelets (Bld) [#/Vol] 364 10*3/uL 150-450 [facility] Protein Fractions Elph [Inte rp]Ordered By: Dr. Nava on 09-20-2022 Protein Fractions [Interp] Comment . [facility] Comment on above: Protein electrophore sis scan will follow via computer,mail, or category manager delivery. Serum albumin to globulin ra beto by protein electrophoresisOrdered By: Dr. Nava on 09-20-2022 Albumin/Globulin Elph [Mass ratio] 1.2 0.7-1.7 [facility] Serum globulin measurement ( mass/volume)Ordered By: Dr. Nava on 09-20-2022 Globulin (S) [Mass/Vol] 3.3 g/dL 2.2-3.9 [facility] Serum or plasma albumin alisson urement (mass/volume)Ordered By: Dr. Nava on 09-20-2022 Albumin [Mass/Vol] 3.7 g/dL 3.2-5.0 [facility] Serum or plasma albumin/glob ulin mass ratioOrdered By: Dr. Nava on 09-20-2022 Albumin/Globulin [Mass ratio] 0.9 {ratio} 0.9-2.4 [facility] Serum or plasma beta globuli n measurement by electrophoresis (mass/volume)Ordered By: Dr. Nava on 09-20-2022 Beta globulin Elph [Mass/Vol] 1.1 g/dL 0.7-1.3 [facility] Serum or plasma calcium alisson urement (mass/volume)Ordered By: Dr. Nava on 09-20-2022 Calcium [Mass/Vol] 9.2 mg/dL 8.5-10.1 [facility] Serum or plasma creatinine m easurement (mass/volume)Ordered By: Dr. Nava on 09-20-2022 Creatinine [Mass/Vol] 1.19 mg/dL 0.70-1.30 [facility] Comment on above: The validity of the calculated GFR & GFRAA in patients over 70 years has not been determined. Clinical correlation is essential. Serum or plasma urea nitroge n measurement (mass/volume)Ordered By: Dr. Nava on 09-20-2022 Urea nitrogen [Mass/Vol] 22 mg/dL 7-18 [facility] Thin prep Papanicolaou smear with manual screeningOrdered By: Dr. Nava on 09-20-2022 Thin prep Papanicolaou smear with manual screening 12 U/L 15-37 [facility] Thin prep Papanicolaou smear with manual screening 9 5-15 [facility] Thin prep Papanicolaou smear with manual screening See comment [facility] Comment on above: NOT OBSERVED Total protein bloodOrdered B y: Dr. Nava on 09-20-2022 Protein [Mass/Vol] 7.1 g/dL 6.0-8.5 [facility] Laboratory - Microbiology an d Antimicrobial susceptibilityOrdered By: Dr. Cervantes on 09-08-2022 Bacteria identified Cx Nom (Bld) No growth in 5 days. [facility] Absolute lymphocyte countOrd ered By: Dr. Sue on 09-06-2022 Lymphocytes Auto (Unsp spec) [#/Vol] 0.79 10*3/uL 0.83-4.51 [facility] Basophil percentageOrdered B y: Dr. Sue on 09-06-2022 Basophils/100 WBC (Bld) 0.8 % 0-1 [facility] Chloride [Moles/Vol] 106 mmol/L 98-107 [facility] Eosinophils/100 WBC (Bld) 5.3 % 0-5 [facility] Glucose [Mass/Vol] 137 mg/dL 74-106 [facility] Comment on above: Fasting Glucose resu lt greater than or equal to 126 mg/dL suggests DIABETES MELLITUS per A.D.A. criteria. Neutrophils (Bld) [#/Vol] 4.2 10*3/uL 2.0-7.7 [facility] Neutrophils/100 WBC (Bld) 70.2 % 47-70 [facility] Potassium [Moles/Vol] 4.1 mmol/L 3.5-5.1 [facility] Sodium [Moles/Vol] 137 mmol/L 136-145 [facility] WBC (Bld) [#/Vol] 6.0 10*3/uL 4.4-11.0 [facility] Blood erythrocytes count (nu mber/volume)Ordered By: Dr. Sue on 09-06-2022 RBC (Bld) [#/Vol] 4.61 10*6/uL 4.6-6.[address] [facility] Blood hemoglobin measurement (mass/volume)Ordered By: Dr. Sue on 09-06-2022 Hemoglobin (Bld) [Mass/Vol] 14.0 g/dL 13.0-16.5 [facility] Blood lymphocytes/100 leukoc ytesOrdered By: Dr. Sue on 09-06-2022 Lymphocytes/100 WBC (Bld) 13.2 % 19-41 [facility] Blood monocytes/100 leukocyt esOrdered By: Dr. Sue on 09-06-2022 Monocytes/100 WBC (Bld) 10.0 % 0-10 [facility] Blood platelet mean volumeOr dered By: Dr. Sue on 09-06-2022 Platelet mean volume (Bld) [Entitic vol] 8.5 fL 6.2-12.0 [facility] Determination of erythrocyte mean corpuscular volume (MCV)Ordered By: Dr. Sue on 09-06-2022 MCV (RBC) [Entitic vol] 92.2 fL 80-94 [facility] Hematocrit Auto (Bld) [Volum e fraction]Ordered By: Dr. Sue on 09-06-2022 Hematocrit (Bld) [Volume fraction] 42.5 % 40-54 [facility] - Chemistry and C hemistry - challengeOrdered By: Dr. Sue on 09-06-2022 CO2 [Moles/Vol] 23.0 mmol/L 21.0-32.0 [facility] Urea nitrogen/Creatinine [Mass ratio] 19.2 mg/mg 10-20 [facility] Laboratory - CoagulationOrde red By: Dr. Sue on 09-06-2022 aPTT Coag (Bld) [Time] 58.4 s 24.1-36.2 [facility] Laboratory - Hematology and Cell countsOrdered By: Dr. Sue on 09-06-2022 Erythrocyte distribution width (RBC) [Entitic vol] 45.6 fL 35.1-43.9 [facility] Erythrocyte distribution width (RBC) [Ratio] 13.6 % 11.6-14.6 [facility] Immature granulocytes/100 WBC (Bld) 0.500 % 0.0-0.9 [facility] Comment on above: IG% - Immature Granu locytes (promyelocytes, myelocytes and metamyelocytes) > 1% indicates that a LEFT SHIFT is Present. MCH (RBC) [Entitic mass] 30.4 pg 27.0-32.0 [facility] Nucleated RBC/100 WBC (Bld) [Ratio] 0 % 0-5 [facility] MCHC Auto (RBC) [Mass/Vol]Or dered By: Dr. Sue on 09-06-2022 MCHC (RBC) [Mass/Vol] 32.9 g/dL 32-36 [facility] No Panel InformationOrdered By: Dr. Sue on 09-06-2022 Estimated Creatinine Clearance Calc 53.52 ml/min [facility] Estimated GFR (MDRD) Amer 71 mL/min >60 [facility] Comment on above: GFR Calc Estimated GFR (MDRD) Non-Af Amer 59 mL/min >60 [facility] Comment on above: Non- GFR Calc Platelets bldOrdered By: Dr. Sue on 09-06-2022 Platelets (Bld) [#/Vol] 222 10*3/uL 150-450 [facility] Serum or plasma calcium alisson urement (mass/volume)Ordered By: Dr. Sue on 09-06-2022 Calcium [Mass/Vol] 9.0 mg/dL 8.5-10.1 [facility] Serum or plasma creatinine m easurement (mass/volume)Ordered By: Dr. Sue on 09-06-2022 Creatinine [Mass/Vol] 1.25 mg/dL 0.70-1.30 [facility] Comment on above: The validity of the calculated GFR & GFRAA in patients over 70 years has not been determined. Clinical correlation is essential. Serum or plasma urea nitroge n measurement (mass/volume)Ordered By: Dr. Sue on 09-06-2022 Urea nitrogen [Mass/Vol] 24 mg/dL 7-18 [facility] Thin prep Papanicolaou smear with manual screeningOrdered By: Dr. Sue on 09-06-2022 Thin prep Papanicolaou smear with manual screening 8 5-15 [facility] Basophil percentageOrdered B y: Dr. Manuel on 09-04-2022 Bilirubin [Mass/Vol] 0.70 mg/dL 0.20-1.00 [facility] Comment on above: For patients on eltr ombopag therapy, use of Dimension [place] TBIL is not recommended. Protein [Mass/Vol] 7.6 g/dL 6.4-8.2 [facility] COVID-19 virus antigen assay Ordered By: Dr. Manuel on 09-04-2022 SARS-CoV-2 (COVID-19) Ag IA.rapid Ql (Resp) Not detected Not Detect [facility] Comment on above: Normal Reference Ran ge: Not DetectedMethod:(RT-PCR) real-time reverse transcriptase PCRLuminex BEBA Instrument*The Food and Drug Administration (FDA) has issued an Emergency Use Authorization (EAU) for the BEBA SARS-CoV-2 Assay for the rapid detection of the virus that causes COVID-19. This test has been validated, but the FDAs independent review of this validation is pending.*Negative results do not preclude infection and should not be used as the sole basis for treatment or patient management. Optimum specimen types and timing for peak viral levels during infections caused by SARS-CoV-2 have not been determined. Collection of multiple specimens from the same patient may be necessary to detect the virus. The possibility of a false negative result should be considered if the patient has clinical presentation or has had recent exposure. Laboratory - Chemistry and C hemistry - challengeOrdered By: Dr. Manuel on 09-04-2022 ALP [Catalytic activity/Vol] 60 U/L 45-117 [facility] ALT [Catalytic activity/Vol] 16 U/L 16-61 [facility] Globulin (S) [Mass/Vol] 4.0 g/dL 2.2-4.2 [facility] Magnesium [Mass/Vol] 2.4 mg/dL 1.6-2.6 [facility] No Panel InformationOrdered By: Dr. Sue on 09-04-2022 Troponin I High Sensitivity 47 pg/mL 3.0-78.0 [facility] Comment on above: Please Note: New [place]ang[place] t Units and Gender Specific Reference Ranges. For more information see Policy Stat Procedure [place] High Sensitivity Troponin (TNIH) and attachments. No Panel InformationOrdered By: Dr. Manuel on 09-04-2022 Thyroid Stimulating Hormone (TSH) 1.89 uIU/mL 0.358-3.74 [facility] Serum or plasma albumin alisson urement (mass/volume)Ordered By: Dr. Manuel on 09-04-2022 Albumin [Mass/Vol] 3.6 g/dL 3.2-5.0 [facility] Serum or plasma albumin/glob ulin mass ratioOrdered By: Dr. Manuel on 09-04-2022 Albumin/Globulin [Mass ratio] 0.9 {ratio} 0.9-2.4 [facility] Thin prep Papanicolaou smear with manual screeningOrdered By: Dr. Manuel on 09-04-2022 Thin prep Papanicolaou smear with manual screening 12 U/L 15-37 [facility] Absolute lymphocyte countOrd ered By: Dr. Cervantes on 09-03-2022 Lymphocytes Auto (Unsp spec) [#/Vol] 0.77 10*3/uL 0.83-4.51 [facility] Basophil percentageOrdered B y: Dr. Cervantes on 09-03-2022 Basophils/100 WBC (Bld) 0.4 % 0-1 [facility] Chloride [Moles/Vol] 106 mmol/L 98-107 [facility] Eosinophils/100 WBC (Bld) 2.3 % 0-5 [facility] Glucose [Mass/Vol] 123 mg/dL 74-106 [facility] Comment on above: Fasting Glucose resu lt from 100 to 125 mg/dL suggests IMPAIRED HOMEOSTASIS per A.D.A. criteria. Neutrophils (Bld) [#/Vol] 5.9 10*3/uL 2.0-7.7 [facility] Neutrophils/100 WBC (Bld) 75.5 % 47-70 [facility] Potassium [Moles/Vol] 4.4 mmol/L 3.5-5.1 [facility] Sodium [Moles/Vol] 139 mmol/L 136-145 [facility] WBC (Bld) [#/Vol] 7.8 10*3/uL 4.4-11.0 [facility] Blood erythrocytes count (nu mber/volume)Ordered By: Dr. Cervantes on 09-03-2022 RBC (Bld) [#/Vol] 5.10 10*6/uL 4.6-6.[address] [facility] Blood hemoglobin measurement (mass/volume)Ordered By: Dr. Cervantes on 09-03-2022 Hemoglobin (Bld) [Mass/Vol] 15.2 g/dL 13.0-16.5 [facility] Blood lymphocytes/100 leukoc ytesOrdered By: Dr. Cervantes on 09-03-2022 Lymphocytes/100 WBC (Bld) 9.9 % 19-41 [facility] Blood monocytes/100 leukocyt esOrdered By: Dr. Cervantes on 09-03-2022 Monocytes/100 WBC (Bld) 11.6 % 0-10 [facility] Blood or tissue coagulation factor II targeted mutation analysis by molecular geneticOrdered By: Dr. Manuel on 09-03-2022 F2 gene targeted mutation analysis [employer] Nom (Bld/Tiss) Comment . [facility] Comment on above: Result: c.*97G>A - N ot DetectedThis result is not associated with an increased risk for venousthromboembolism. See Additional Clinical Information andComments.Additional Clinical Information:Venous thromboembolism is a multifactorial disease influenced bygenetic, environmental, and circumstantial risk factors. The c.*97G>Avariant in the F2 gene is a genetic risk factor for venousthromboembolism. Heterozygous carriers have a 2- to 4-fold increasedrisk for venous thromboembolism. Homozygotes for the c.*97G>A variantare rare. The annual risk of VTE in homozygotes has been reported mara 1.1%/year. Individuals who carry both a c.*97G>A variant in theF2 gene and a c.1601G>A (p. [id number]) variant in the F5 gene(commonly referred to as Factor V Leiden) have an approximately 20-fold increased risk for venous thromboembolism. Risks are likely mara even higher in more complex genotype combinations involving theF2 c.*97G>A variant and Factor V Leiden (PMID: 44751464). Additionalrisk factors include but are not limited to: deficiency of protein C,protein S, or antithrombin III, age, male sex, personal or familyhistory of deep vein thromboembolism, smoking, surgery, prolongedimmobilization, malignant neoplasm, tamoxifen treatment, raloxifenetreatment, oral contraceptive use, hormone replacement therapy, andpregnancy. Management of thrombotic risk and thrombotic events shouldfollow established guidelines and fit the clinical circumstance. Thisresult cannot predict the occurrence or recurrence of a thromboticevent.Comments:Genetic counseling is recommended to discuss the potential clinicalimplications of positive results, as well as recommendations fortesting family members.Genetic Coordinators are available for health care providers to discussresults at [phone] Details:Variant analyzed: c.*97G>A, previously referred to as [id number]/Limitations:DNA analysis of the F2 gene (NM_[id number]) was performed by PCRamplification followed by restriction enzyme analysis. The diagnosticsensitivity is >99%. Results must be combined with clinicalinformation for the most accurate interpretation. Molecular-basedtesting is highly accurate, but as in any laboratory test, diagnosticerrors may occur. False positive or false negative results may occurfor reasons that include genetic variants, blood transfusions, bonemarrow transplantation, somatic or tissue-specific mosaicism,mislabeled samples, or erroneous representation of familyrelationships.This test was developed and its performance characteristics determinedby [employer]. It has not been cleared or approved by the Food and DrugAdministration.References:Ruperto S, Yazmin AK, Prateek R, Teofilo WW, Kerwin OKEEFE; ACMG ProfessionalPractice and Guidelines Committee. Addendum: [employer] consensus statement on factor V Leiden mutationtesting. Colette Med. 2020Sep 16. doi: 10.1038/u19171-092-94920-g.PMID: 23709113.[place]ina RIGGS. Prothrombin Thrombophilia. 2005Feb 05[Updated 2020Aug 18]. In: Shane MP, Jose Rafael HH, Felicitas RA, et al.,editors. Garret(Arjun) [Internet]. [place] ([place]): [facility]; 6418-8388. Available from:https://www.ncbi.nlm.nih.gov/books/BRP9758/Jamie S, Yazmin AK, Howard X, Lang B, Fletcher EB, Irene P, Sofia CS;AC Laboratory Clinical Psychology Professor Committee. Venous thromboembolismlaboratory testing (factor V Leiden and factor II c.*97G>A),2018 update: a technical standard of the [employer] and [employer] (ACMG). Colette Med. 2018 Jun;20(12):8089-0352.doi: 10.1038/[id number]-z. Epub 2017Apr 18. PMID: 44254903.Yoly Mendoza, PhD, Talha Obrien, PhDEduar Templeton, PhD, Tamika Oscar, PhD, Makenna Onofre, PhD, FACMGW Elena Arteaga, PhD, Joshua Hilton, PhD, Asha Chapman, PhD, FACMGPerformed at: [facility] [employer] [id number] Director: Sg Glass MD, Phone: [phone] at: [facility] [employer] [id number] Director: Kike Alfaro PhD, Phone: [phone] at: [facility] [id number] [place] [id number] Director: Jassi Hawley [facility], Phone: [phone] Blood platelet mean volumeOr dered By: Dr. Cervantes on 09-03-2022 Platelet mean volume (Bld) [Entitic vol] 8.9 fL 6.2-12.0 [facility] Determination of erythrocyte mean corpuscular volume (MCV)Ordered By: Dr. Cervantes on 09-03-2022 MCV (RBC) [Entitic vol] 92.4 fL 80-94 [facility] Functional protein C measure mentOrdered By: Dr. Manuel on 09-03-2022 Protein C actual/normal Chromogenic method (PPP) [Rel catalytic activity/Vol] 130 % 73-180 [facility] Protein C actual/normal Chromogenic method (PPP) [Rel catalytic activity/Vol] Not Reportable [facility] Hematocrit Auto (Bld) [Volum e fraction]Ordered By: Dr. Cervantes on 09-03-2022 Hematocrit (Bld) [Volume fraction] 47.1 % 40-54 [facility] INR in Blood by Coagulation assayOrdered By: Dr. Cervantes on 09-03-2022 INR Coag (Bld) [Relative time] 1.1 {INR} [facility] Influenza virus A and B and SARS-CoV-2 (COVID-19) Ag panel - Upper respiratory specimOrdered By: Dr. Cervantes on 09-03-2022 SARS-CoV-2 (COVID-19) RNA NE+probe Ql (Resp) [facility] Laboratory - Chemistry and C hemistry - challengeOrdered By: Dr. Cervantes on 09-03-2022 CO2 [Moles/Vol] 26.0 mmol/L 21.0-32.0 [facility] Natriuretic peptide B (Bld) [Mass/Vol] 24.4 pg/mL 0-100 [facility] Urea nitrogen/Creatinine [Mass ratio] 15.2 mg/mg 10-20 [facility] - CoagulationOrde red By: Dr. Cervantes on 09-03-2022 aPTT Coag (Bld) [Time] 29.8 s 24.1-36.2 [facility] PT Coag (PPP) [Time] 13.9 s 11.7-14.9 [facility] Laboratory - Hematology and Cell countsOrdered By: Dr. Cervantes on 09-03-2022 Erythrocyte distribution width (RBC) [Entitic vol] 45.5 fL 35.1-43.9 [facility] Erythrocyte distribution width (RBC) [Ratio] 13.5 % 11.6-14.6 [facility] Immature granulocytes/100 WBC (Bld) 0.300 % 0.0-0.9 [facility] Comment on above: IG% - Immature Granu locytes (promyelocytes, myelocytes and metamyelocytes) > 1% indicates that a LEFT SHIFT is Present. MCH (RBC) [Entitic mass] 29.8 pg 27.0-32.0 [facility] Nucleated RBC/100 WBC (Bld) [Ratio] 0 % 0-5 [facility] MCHC Auto (RBC) [Mass/Vol]Or dered By: Dr. Cervantes on 09-03-2022 MCHC (RBC) [Mass/Vol] 32.3 g/dL 32-36 [facility] No Panel InformationOrdered By: Dr. Manuel on 09-03-2022 Anti-Cardiolipin IgM Antibody 22 MPL U/mL 0-12 [facility] Comment on above: Negative: <13 Indete rminate: 13 - 20 Low-Med Positive: >20 - 80 High Positive: >80 Factor V Leiden Mutation Comment . [facility] Comment on above: Result: c.1601G>A (p .[id number]) - Not DetectedThis result is not associated with an increased risk for venousthromboembolism. See Additional Clinical Information andComments.Additional Clinical Information:Venous thromboembolism is a multifactorial diseaseinfluenced by genetic, environmental, and circumstantialrisk factors. The c.1601G>A (p. [id number]) variant in theF5 gene, commonly referred to as Factor V Leiden, is agenetic risk factor for venous thromboembolism.Heterozygous carriers of this variant have a 6- to 8-foldincreased risk for venous thromboembolism. Individualshomozygous for this variant (ie, with a copy of the varianton each chromosome) have an approximately 80-fold increasedrisk for venous thromboembolism. Individuals who carry felix c.*97G>A variant in the F2 gene and Factor V Leiden havean approximately 20-fold increased risk for venousthromboembolism. Risks are likely to be even higher in morecomplex genotype combinations involving the F2 c.*97G>Avariant and Factor V Leiden (PMID: 29683618). Additionalrisk factors include but are not limited to: deficiency ofprotein C, protein S, or antithrombin III, age, male sex,personal or family history of deep vein thromboembolism,smoking, surgery, prolonged immobilization, malignantneoplasm, tamoxifen treatment, raloxifene treatment, oralcontraceptive use, hormone replacement therapy, andpregnancy. Management of thrombotic risk and thromboticevents should follow established guidelines and fit theclinical circumstance. This result cannot predict theoccurrence or recurrence of a thrombotic event.Comment:Genetic counseling is recommended to discuss thepotential clinical implications of positive results, aswell as recommendations for testing family members.Genetic Coordinators are available for health careproviders to discuss results at [phone]).Test Details:Variant Analyzed: c.1601G>A (p. [id number]), referred toas Factor V LeidenMethods/Limitations:DNA analysis of the F5 gene (NM_000130.5) was performedby PCR amplification followed by restriction enzymeanalysis. The diagnostic sensitivity is >99%. Results mustbe combined with clinical information for the most accurateinterpretation. Molecular-based testing is highly accurate,but as in any laboratory test, diagnostic errors may occur.False positive or false negative results may occur forreasons that include genetic variants, blood transfusions,bone marrow transplantation, somatic or tissue-specificmosaicism, mislabeled samples, or erroneous representationof family relationships.This test was developed and its performance characteristicsdetermined by [employer]. It has not been cleared orapproved by the Food and Drug Administration.References:Ruperto Deal, Yazmin YANG, Prateek R, Teofilo WW, Kerwin JH; ACMGProfessional Practice and Guidelines Committee. Addendum:[employer] consensus statement onfactor V Leiden mutation testing. [employer] Med. 2020Sep 16.doi: 10.1038/g04799-207-12610-q. PMID: 17288983.[place] RIGGS. Factor V Leiden Thrombophilia. 1998November 25(Updated 2017Jul 18). In: Shane MP, Jose Rafael HH, Felicitas RA,et al., editors. Garret(R) (Internet). [place] ([place]):[facility], [place]; 8162-5965. Availablefrom: https://www.ncbi.nlm.nih.gov/books/YQO6803/Jamie Deal, Yazmin YANG, Lee X, Lang B, Fletcher EB, Irene P,Sofia CS; [facility] Laboratory Clinical Psychology Professor Committee.Venous thromboembolism laboratory testing (factor V Leidenand factor II c.*97G>A), 2018 update: a technical standardof the [employer] and [employer]omics(ACMG). [employer] Med. 2018 Jun;20(12):8247-9788. doi:10.1038/b98322-186-3369-d. Epub 2017Apr 18. PMID: 96443876.Yoly Mendoza, PhD, Talha Obrien, PhDEduar Templeton, PhD, Tamika Oscar, PhD, Makenna Onofre, PhD, FACBRITNI Arteaga, PhD, Joshua Hilton, PhD, Asha Chapman, PhD, [facility] No Panel InformationOrdered By: Dr. Cervantes on 09-03-2022 D-Dimer Quantitative (PE/DVT) 17.13 FEU/ug/m 0.27-0.49 [facility] Comment on above: D-Dimer ELEVATED (>0 .49): Additional studies and clinicalassessments are indicated to conclude diagnosis of:Deep Vein Thrombosis (DVT) or Pulmonary Embolism (PE)CRITICAL VALUE VERIFIED. CALLED TO OBHCIJ08/20/23 1836 María Higginbotham.RESULTS READ BACK BY SAME . Estimated Creatinine Clearance Calc 50.68 ml/min [facility] Estimated GFR (MDRD) Amer 67 mL/min >60 [facility] Comment on above: GFR Calc Estimated GFR (MDRD) Non-Af Amer 55 mL/min >60 [facility] Comment on above: Non- GFR Calc Troponin I High Sensitivity 105 pg/mL 3.0-78.0 [facility] Comment on above: Please Note: New Vangie t Units and Gender Specific Reference Ranges. For more information see Policy Stat Procedure [place] High Sensitivity Troponin (TNIH) and attachments. Platelet poor plasma antithr ombin actual/normal ratio by chromogenic method (relativeOrdered By: Dr. Manuel on 09-03-2022 Antithrombin actual/normal Chromogenic method (PPP) [Rel catalytic activity/Vol] 122 % 75-135 [facility] Comment on above: Direct Xa inhibitor anticoagulants such as rivaroxaban,apixaban and edoxaban will lead to spuriously elevatedantithrombin activity levels possibly masking a deficiency. Platelet poor plasma antithr ombin antigen detection by immunoassayOrdered By: Dr. Manuel on 09-03-2022 Antithrombin Ag IA Ql (PPP) 98 % 72-124 [facility] Comment on above: This test was develo ped and its performance characteristicsdetermined by [employer]. It has not been cleared orapproved by the Food and Drug Administration. Platelets bldOrdered By: Dr. Cervantes on 09-03-2022 Platelets (Bld) [#/Vol] 245 10*3/uL 150-450 [facility] Protein C antigen assayOrder ed By: Dr. Manuel on 09-03-2022 Protein C Ag actual/normal IA (PPP) [Relative mass conc] 119 % 60-150 [facility] Serum beta 2 glycoprotein 1 IgA antibody detectionOrdered By: Dr. Manuel on 09-03-2022 Beta 2 glycoprotein 1 IgA Ql (S) <9 0-25 [facility] Comment on above: Result Units: GPI Ig A unitsThe reference interval reflects a 3SD or 99th percentileinterval, which is thought to represent a potentiallyclinically significant result in accordance with theInternational Consensus Statement on the classificationcriteria for definitive antiphospholipid syndrome (APS). JThromb Haem 2006;4:295-306. Serum beta 2 glycoprotein 1 IgG antibody detectionOrdered By: Dr. Manuel on 09-03-2022 Beta 2 glycoprotein 1 IgG Ql (S) <9 0-20 [facility] Comment on above: Result Units: GPI Ig G unitsThe reference interval reflects a 3SD or 99th percentileinterval, which is thought to represent a potentiallyclinically significant result in accordance with theInternational Consensus Statement on the classificationcriteria for definitive antiphospholipid syndrome (APS). JThromb Haem 2006;4:295-306. Serum beta 2 glycoprotein 1 IgM antibody detectionOrdered By: Dr. Manuel on 09-03-2022 Beta 2 glycoprotein 1 IgM Ql (S) <9 0-32 [facility] Comment on above: Result Units: GPI Ig M unitsThe reference interval reflects a 3SD or 99th percentileinterval, which is thought to represent a potentiallyclinically significant result in accordance with theInternational Consensus Statement on the classificationcriteria for definitive antiphospholipid syndrome (APS). JThromb Haem 2006;4:295-306. Serum cardiolipin IgG antibo dy assay by immunoassay (units/volume)Ordered By: Dr. Manuel on 09-03-2022 Cardiolipin IgG IA Qn (S) < 9 GPL U/mL 0-14 [facility] Comment on above: Negative: <15 Indete rminate: 15 - 20 Low-Med Positive: >20 - 80 High Positive: >80 Serum or plasma calcium alisson urement (mass/volume)Ordered By: Dr. Cervantes on 09-03-2022 Calcium [Mass/Vol] 9.8 mg/dL 8.5-10.1 [facility] Serum or plasma creatinine m easurement (mass/volume)Ordered By: Dr. Cervantes on 09-03-2022 Creatinine [Mass/Vol] 1.32 mg/dL 0.70-1.30 [facility] Comment on above: The validity of the calculated GFR & GFRAA in patients over 70 years has not been determined. Clinical correlation is essential. Serum or plasma urea nitroge n measurement (mass/volume)Ordered By: Dr. Cervantes on 09-03-2022 Urea nitrogen [Mass/Vol] 20 mg/dL 7-18 [facility] Thin prep Papanicolaou smear with manual screeningOrdered By: Dr. Cervantes on 09-03-2022 Thin prep Papanicolaou smear with manual screening 7 5- [facility] Absolute lymphocyte counton 03-27-2022 Lymphocytes Auto (Unsp spec) [#/Vol] 0.89 10*3/uL 0.83-4.51 [facility] Work Phone: Basophil percentageon 2021 Basophils/100 WBC (Bld) 0.5 % 0-1 [facility] Work Phone: Bilirubin [Mass/Vol] 0.80 mg/dL 0.20-1.00 [facility] Work Phone: Comment on above: For patients on eltr ombopag therapy, use of Dimension [place] TBIL is not recommended. Chloride [Moles/Vol] 107 mmol/L 98-107 [facility] Work Phone: Eosinophils/100 WBC (Bld) 1.9 % 0-5 [facility] Work Phone: Glucose [Mass/Vol] 122 mg/dL 74-106 [facility] Work Phone: Comment on above: Fasting Glucose resu lt from 100 to 125 mg/dL suggests IMPAIRED HOMEOSTASIS per A.D.A. criteria. Neutrophils (Bld) [#/Vol] 4.2 10*3/uL 2.0-7.7 [facility] Work Phone: Neutrophils/100 WBC (Bld) 71.4 % 47-70 [facility] Work Phone: [phone] Potassium [Moles/Vol] 4.3 mmol/L 3.5-5.1 [facility] Work Phone: Comment on above: Slight Hemolysis, Re sult may be falsely increased. Protein [Mass/Vol] 7.8 g/dL 6.4-8.2 [facility] Work Phone: Sodium [Moles/Vol] 139 mmol/L 136-145 [facility] Work Phone: WBC (Bld) [#/Vol] 5.9 10*3/uL 4.4-11.0 [facility] Work Phone: Blood erythrocytes count (nu mber/volume)on 03-27-2022 RBC (Bld) [#/Vol] 4.72 10*6/uL 4.6-6.[address] [facility] Work Phone: Blood hemoglobin measurement (mass/volume)on 03-27-2022 Hemoglobin (Bld) [Mass/Vol] 14.2 g/dL 13.0-16.5 [facility] Work Phone: Blood lymphocytes/100 leukoc yteson 03-27-2022 Lymphocytes/100 WBC (Bld) 15.1 % 19-41 [facility] Work Phone: Blood monocytes/100 leukocyt eson 03-27-2022 Monocytes/100 WBC (Bld) 10.8 % 0-10 [facility] Work Phone: Blood platelet mean volumeon 03-27-2022 Platelet mean volume (Bld) [Entitic vol] 9.1 fL 6.2-12.0 [facility] Work Phone: Determination of erythrocyte mean corpuscular volume (MCV)on 03-27-2022 MCV (RBC) [Entitic vol] 91.5 fL 80-94 [facility] Work Phone: Hematocrit Auto (Bld) [Volum e fraction]on 03-27-2022 Hematocrit (Bld) [Volume fraction] 43.2 % 40-54 [facility] Work Phone: Hemoglobin in reticulocytes (mass per reticulocyte)on 03-27-2022 Hemoglobin (Reticulocytes) [Entitic mass] 34.7 pg 30-35 [facility] Work Phone: Iron measurement (mass/mass) on 03-27-2022 Iron (Unsp spec) [Mass/Mass] 131 ug/dL 65-175 [facility] Work Phone: Comment on above: Slight Hemolysis, Re sult may be falsely increased. Laboratory - Chemistry and C hemistry - challengeon 03-27-2022 ALP [Catalytic activity/Vol] 49 U/L 45-117 [facility] Work Phone: ALT [Catalytic activity/Vol] 24 U/L 16-61 [facility] Work Phone: CO2 [Moles/Vol] 25.0 mmol/L 21.0-32.0 [facility] Work Phone: Cobalamin (Vitamin B12) [Mass/Vol] 459 pg/mL 211-911 [facility] Work Phone: Globulin (S) [Mass/Vol] 3.9 g/dL 2.2-4.2 [facility] Work Phone: Urea nitrogen/Creatinine [Mass ratio] 15.6 mg/mg 10-20 [facility] Work Phone: Laboratory - Hematology and Cell countson 03-27-2022 Erythrocyte distribution width (RBC) [Entitic vol] 45.1 fL 35.1-43.9 [facility] Work Phone: Erythrocyte distribution width (RBC) [Ratio] 13.5 % 11.6-14.6 [facility] Work Phone: Immature granulocytes/100 WBC (Bld) 0.300 % 0.0-0.9 [facility] Work Phone: Comment on above: IG% - Immature Granu locytes (promyelocytes, myelocytes and metamyelocytes) > 1% indicates that a LEFT SHIFT is Present. MCH (RBC) [Entitic mass] 30.1 pg 27.0-32.0 [facility] Work Phone: Nucleated RBC/100 WBC (Bld) [Ratio] 0 % 0-5 [facility] Work Phone: MCHC Auto (RBC) [Mass/Vol]on 03-27-2022 MCHC (RBC) [Mass/Vol] 32.9 g/dL 32-36 [facility] Work Phone: No Panel Informationon 03-27 Estimated GFR (MDRD) Amer 73 mL/min >60 [facility] Work Phone: Comment on above: GFR Calc Estimated GFR (MDRD) Non-Af Amer 60 mL/min >60 [facility] Work Phone: Comment on above: Non- GFR Calc Immature Reticulocyte Fraction 13.60 % 3.00-15.90 [facility] Work Phone: Reticulocyte Count 1.51 % 0.5-1.5 [facility] Work Phone: Thyroid Stimulating Hormone (TSH) 1.63 uIU/mL 0.358-3.74 [facility] Work Phone: Total Iron Binding Capacity 313 ug/dL 250-450 [facility] Work Phone: Platelets bldon 03-27-2022 Platelets (Bld) [#/Vol] 318 10*3/uL 150-450 [facility] Work Phone: Serum or plasma albumin alisson urement (mass/volume)on 03-27-2022 Albumin [Mass/Vol] 3.9 g/dL 3.2-5.0 [facility] Work Phone: Serum or plasma albumin/glob ulin mass ratioon 03-27-2022 Albumin/Globulin [Mass ratio] 1.0 {ratio} 0.9-2.4 [facility] Work Phone: Serum or plasma calcium alisson urement (mass/volume)on 03-27-2022 Calcium [Mass/Vol] 9.5 mg/dL 8.5-10.1 [facility] Work Phone: Serum or plasma creatinine m easurement (mass/volume)on 03-27-2022 Creatinine [Mass/Vol] 1.22 mg/dL 0.70-1.30 [facility] Work Phone: Comment on above: The validity of the calculated GFR & GFRAA in patients over 70 years has not been determined. Clinical correlation is essential. Serum or plasma ferritin ronen surement (mass/volume)on 03-27-2022 Ferritin [Mass/Vol] 76 ng/mL 26-[address] [facility] Work Phone: Serum or plasma urea nitroge n measurement (mass/volume)on 03-27-2022 Urea nitrogen [Mass/Vol] 19 mg/dL 7-18 [facility] Work Phone: Thin prep Papanicolaou smear with manual screeningon 03-27-2022 Thin prep Papanicolaou smear with manual screening 18 U/L 15-37 [facility] Work Phone: Comment on above: Slight Hemolysis, Re sult may be falsely increased. Thin prep Papanicolaou smear with manual screening 7 5-15 [facility] Work Phone: Absolute lymphocyte counton 12-25-2021 Lymphocytes Auto (Unsp spec) [#/Vol] 0.98 10*3/uL 0.83-4.51 [facility] Work Phone: Basophil percentageon 2021 Basophils/100 WBC (Bld) 0.4 % 0-1 [facility] Work Phone: Eosinophils/100 WBC (Bld) 1.2 % 0-5 [facility] Work Phone: Neutrophils (Bld) [#/Vol] 4.1 10*3/uL 2.0-7.7 [facility] Work Phone: Neutrophils/100 WBC (Bld) 72.2 % 47-70 [facility] Work Phone: WBC (Bld) [#/Vol] 5.7 10*3/uL 4.4-11.0 [facility] Work Phone: Blood erythrocytes count (nu mber/volume)on 12-25-2021 RBC (Bld) [#/Vol] 5.07 10*6/uL 4.6-6.2 [facility]: Blood hemoglobin measurement (mass/volume)on 12-25-2021 Hemoglobin (Bld) [Mass/Vol] 13.8 g/dL 13.0-16.5 [facility] Work Phone: [phone] Blood lymphocytes/100 leukoc yteson 12-25-2021 Lymphocytes/100 WBC (Bld) 17.2 % 19-41 [facility] Work Phone: [phone] Blood monocytes/100 leukocyt eson 12-25-2021 Monocytes/100 WBC (Bld) 8.8 % 0-10 [facility] Work Phone: Blood platelet mean volumeon 12-25-2021 Platelet mean volume (Bld) [Entitic vol] 8.8 fL 6.2-12.0 [facility] Work Phone: [phone] Determination of erythrocyte mean corpuscular volume (MCV)on 12-25-2021 MCV (RBC) [Entitic vol] 86.0 fL 80-94 [facility] Work Phone: [phone] Hematocrit Auto (Bld) [Volum e fraction]on 12-25-2021 Hematocrit (Bld) [Volume fraction] 43.6 % 40-54 [facility] Work Phone: Iron measurement (mass/mass) on 12-25-2021 Iron (Unsp spec) [Mass/Mass] 73 ug/dL 65-175 [facility] Work Phone: Laboratory - Hematology and Cell countson 12-25-2021 Erythrocyte distribution width (RBC) [Entitic vol] 58.7 fL 35.1-43.9 [facility] Work Phone: Erythrocyte distribution width (RBC) [Ratio] 18.8 % 11.6-14.6 [facility] Work Phone: Immature granulocytes/100 WBC (Bld) 0.200 % 0.0-0.9 [facility] Work Phone: Comment on above: IG% - Immature Granu locytes (promyelocytes, myelocytes and metamyelocytes) > 1% indicates that a LEFT SHIFT is Present. MCH (RBC) [Entitic mass] 27.2 pg 27.0-32.0 [facility] Work Phone: Nucleated RBC/100 WBC (Bld) [Ratio] 0 % 0-5 [facility] Work Phone: MCHC Auto (RBC) [Mass/Vol]on 12-25-2021 MCHC (RBC) [Mass/Vol] 31.7 g/dL 32-36 [facility] Work [facility]: Platelets bldon 12-25-2021 Platelets (Bld) [#/Vol] 299 10*3/uL 150-450 [facility] Work Phone: Basophil percentageon 2021 WBC (Bld) [#/Vol] 8.0 10*3/uL 4.4-11.0 [facility] Work Phone: Blood erythrocytes count (nu mber/volume)on 11-02-2021 RBC (Bld) [#/Vol] 3.80 10*6/uL 4.6-6.2 [facility] Work Phone: Blood hemoglobin measurement (mass/volume)on 11-02-2021 Hemoglobin (Bld) [Mass/Vol] 8.9 g/dL 13.0-16.5 [facility] Work Phone: Blood platelet mean volumeon 11-02-2021 Platelet mean volume (Bld) [Entitic vol] 9.3 fL 6.2-12.0 [facility] Work Phone: Determination of erythrocyte mean corpuscular volume (MCV)on 11-02-2021 MCV (RBC) [Entitic vol] 81.1 fL 80-94 [facility] Work Phone: Hematocrit Auto (Bld) [Volum e fraction]on 11-02-2021 Hematocrit (Bld) [Volume fraction] 30.8 % 40-54 [facility] Work Phone: Laboratory - Hematology and Cell countson 11-02-2021 Erythrocyte distribution width (RBC) [Entitic vol] 46.4 fL 35.1-43.9 [facility] Work Phone: Erythrocyte distribution width (RBC) [Ratio] 16.6 % 11.6-14.6 [facility] Work Phone: MCH (RBC) [Entitic mass] 23.4 pg 27.0-32.0 [facility] Work Phone: MCHC Auto (RBC) [Mass/Vol]on 11-02-2021 MCHC (RBC) [Mass/Vol] 28.9 g/dL 32-36 [facility] Work Phone: Platelets bldon 11-02-2021 Platelets (Bld) [#/Vol] 457 10*3/uL 150-450 [facility] Work Phone: Absolute lymphocyte counton 10-25-2021 Lymphocytes Auto (Unsp spec) [#/Vol] 1.30 10*3/uL 0.83-4.51 [facility] Work Phone: Basophil percentageon 2021 Basophils/100 WBC (Bld) 0.7 % 0-1 [facility] Work Phone: Bilirubin [Mass/Vol] 0.30 mg/dL 0.20-1.00 [facility] Work Phone: Comment on above: For patients on eltr ombopag therapy, use of Dimension [place] TBIL is not recommended. Chloride [Moles/Vol] 108 mmol/L 98-107 [facility] Work Phone: [phone] Eosinophils/100 WBC (Bld) 1.5 % 0-5 [facility] Work Phone: Glucose [Mass/Vol] 101 mg/dL 74-106 [facility] Work Phone: Comment on above: Fasting Glucose resu lt from 100 to 125 mg/dL suggests IMPAIRED HOMEOSTASIS per A.D.A. criteria. Neutrophils (Bld) [#/Vol] 3.8 10*3/uL 2.0-7.7 [facility] Work Phone: Neutrophils/100 WBC (Bld) 63.2 % 47-70 [facility] Work Phone: Potassium [Moles/Vol] 4.4 mmol/L 3.5-5.1 [facility] Work Phone: Protein [Mass/Vol] 6.7 g/dL 6.4-8.2 [facility] Work Phone: Sodium [Moles/Vol] 139 mmol/L 136-145 [facility] Work Phone: WBC (Bld) [#/Vol] 6.0 10*3/uL 4.4-11.0 [facility] Work Phone: Blood erythrocytes count (nu mber/volume)on 10-25-2021 RBC (Bld) [#/Vol] 3.51 10*6/uL 4.6-6.[address] [facility] Work Phone: Blood hemoglobin measurement (mass/volume)on 10-25-2021 Hemoglobin (Bld) [Mass/Vol] 8.6 g/dL 13.0-16.5 [facility] Work Phone: [phone] Blood lymphocytes/100 leukoc yteson 10-25-2021 Lymphocytes/100 WBC (Bld) 21.8 % 19-41 [facility] Work Phone: Blood monocytes/100 leukocyt eson 10-25-2021 Monocytes/100 WBC (Bld) 12.6 % 0-10 [facility] Work Phone: Blood platelet mean volumeon 10-25-2021 Platelet mean volume (Bld) [Entitic vol] 8.6 fL 6.2-12.0 [facility] Work Phone: Determination of erythrocyte mean corpuscular volume (MCV)on 10-25-2021 MCV (RBC) [Entitic vol] 78.3 fL 80-94 [facility] Work Phone: Erythrocyte sedimentation ra kesha 10-25-2021 ESR (Bld) [Velocity] 11 mm/h 0-20 [facility] Work Phone: [phone] Hematocrit Auto (Bld) [Volum e fraction]on 10-25-2021 Hematocrit (Bld) [Volume fraction] 27.5 % 40-54 [facility] Work Phone: Hemoglobin in reticulocytes (mass per reticulocyte)on 10-25-2021 Hemoglobin (Reticulocytes) [Entitic mass] 20.9 pg 30-35 [facility] Work Phone: Iron measurement (mass/mass) on 10-25-2021 Iron (Unsp spec) [Mass/Mass] 16 ug/dL 65-175 [facility] Work Phone: Laboratory - Chemistry and C hemistry - challengeon 10-25-2021 ALP [Catalytic activity/Vol] 39 U/L 45-117 [facility] Work Phone: ALT [Catalytic activity/Vol] 19 U/L 16-61 [facility] Work Phone: CO2 [Moles/Vol] 25.0 mmol/L 21.0-32.0 [facility] Work Phone: Globulin (S) [Mass/Vol] 3.0 g/dL 2.2-4.2 [facility] Work Phone: Urea nitrogen/Creatinine [Mass ratio] 17.4 mg/mg 10-20 [facility] Work Phone: Laboratory - Hematology and Cell countson 10-25-2021 Erythrocyte distribution width (RBC) [Entitic vol] 41.9 fL 35.1-43.9 [facility] Work Phone: Erythrocyte distribution width (RBC) [Ratio] 14.6 % 11.6-14.6 [facility] Work Phone: Immature granulocytes/100 WBC (Bld) 0.200 % 0.0-0.9 [facility] Work Phone: Comment on above: IG% - Immature Granu locytes (promyelocytes, myelocytes and metamyelocytes) > 1% indicates that a LEFT SHIFT is Present. MCH (RBC) [Entitic mass] 24.5 pg 27.0-32.0 [facility] Work Phone: Nucleated RBC/100 WBC (Bld) [Ratio] 0 % 0-5 [facility] Work Phone: MCHC Auto (RBC) [Mass/Vol]on 10-25-2021 MCHC (RBC) [Mass/Vol] 31.3 g/dL 32-36 [facility] Work Phone: No Panel Informationon 10-25 Estimated GFR (MDRD) Amer 78 mL/min >60 [facility] Work Phone: Comment on above: GFR Calc Estimated GFR (MDRD) Non-Af Amer 65 mL/min >60 [facility] Work Phone: Comment on above: Non- GFR Calc Immature Reticulocyte Fraction 24.60 % 3.00-15.90 [facility] Work Phone: Reticulocyte Count 1.90 % 0.5-1.5 [facility] Work Phone: Thyroid Stimulating Hormone (TSH) 1.43 uIU/mL 0.358-3.74 [facility] Work Phone: Total Iron Binding Capacity 451 ug/dL 250-450 [facility] Work Phone: Platelets bldon 10-25-2021 Platelets (Bld) [#/Vol] 429 10*3/uL 150-450 [facility] Work Phone: Serum or plasma albumin alisson urement (mass/volume)on 10-25-2021 Albumin [Mass/Vol] 3.7 g/dL 3.2-5.0 [facility] Work Phone: Serum or plasma albumin/glob ulin mass ratioon 10-25-2021 Albumin/Globulin [Mass ratio] 1.2 {ratio} 0.9-2.4 [facility] Work Phone: Serum or plasma calcium alisson urement (mass/volume)on 10-25-2021 Calcium [Mass/Vol] 8.3 mg/dL 8.5-10.1 [facility] Work Phone: Serum or plasma creatinine m easurement (mass/volume)on 10-25-2021 Creatinine [Mass/Vol] 1.15 mg/dL 0.70-1.30 [facility] Work Phone: Comment on above: The validity of the calculated GFR & GFRAA in patients over 70 years has not been determined. Clinical correlation is essential. Serum or plasma ferritin ronen surement (mass/volume)on 10-25-2021 Ferritin [Mass/Vol] 7 ng/mL 26-[address] [facility] Work Phone: Serum or plasma iron saturat ion measurement (mass fraction)on 10-25-2021 Iron saturation [Mass fraction] 3.5 % 15.0-55.0 [facility] Work Phone: Serum or plasma urea nitroge n measurement (mass/volume)on 10-25-2021 Urea nitrogen [Mass/Vol] 20 mg/dL 7-18 [facility] Work Phone: Thin prep Papanicolaou smear with manual screeningon 10-25-2021 Thin prep Papanicolaou smear with manual screening 13 U/L 15-37 [facility] Work Phone: Thin prep Papanicolaou smear with manual screening 6 5-15 [facility] Work Phone: Office Visit: New patient/fr equent bronchitison 06-12-2017 Documentation of current medications (procedure) Done Invalid Interpretation Code [facility] Work Phone: Tobacco smoking status LAIS Never Invalid Interpretation Code [facility] Work Phone: Tobacco smoking status NHIS Tobacco smoking status [facility] Invalid Interpretation Code [facility] Work Phone: Tobacco use [facility] Never smoker Invalid Interpretation Code [facility] Work Phone: Vital Signs Date Time Vital Sign Value Performing Clinician Facility 10-26-2024 09:36-0400 Body height 193.[address] Gladis Nava MD Work Phone: [facility] 10-26-2024 09:36-0400 Body weight 111.[address] Gladis Nava MD Work Phone: [facility] 10-21-2024 08:09-0400 Body mass index (BMI) [Ratio] 29.5 kg/m2 Dr. Gladis Nava MD Work Phone: [facility] 10-21-2024 08:09-0400 Body temperature 98 [degF] Dr. Gladis Nava MD Work Phone: [facility] 10-21-2024 08:09-0400 Body weight 110.[address] Gladis Nava MD Work Phone: [facility] 10-21-2024 08:09-0400 Diastolic blood pressure 87 mm[Hg] Dr. Gladis Nava MD Work Phone: [facility] 10-21-2024 08:09-0400 Heart rate 98 /min Dr. Gladis Nava MD Work Phone: [facility] 10-21-2024 08:09-0400 Respiratory rate 20 /min Dr. Gladis Nava MD Work Phone: 9(701)361-883693 [place] [address] 10-21-2024 08:09-0400 SaO2% (BldA) [Mass fraction] 95 % Dr. Gladis Nava MD Work Phone: 3(094)486-390393 [place] [address] 10-21-2024 08:09-0400 Systolic blood pressure 150 mm[Hg] Dr. Gladis Nava MD Work Phone: 9(938)687-063393 [place] [address] 07-28-2024 16:18-0500 Heart rate 90 /min Dr. Gladis Nava MD Work Phone: 9(883)943-313593 [place] [address] 07-28-2024 16:18-0500 Respiratory rate 16 /min Dr. Gladis Nava MD Work Phone: 2(235)126-721793 [place] [address] 07-28-2024 15:00-0500 Body height 193.[address] Gladis Nava MD Work Phone: 3(923)676-939493 [place] [address] 07-28-2024 15:00-0500 Body mass index (BMI) [Ratio] 31.4 kg/m2 Dr. Gladis Nava MD Work Phone: 7(393)710-583293 [place] [address] 07-28-2024 15:00-0500 Body temperature 97.2 [degF] Dr. Gladis Nava MD Work Phone: 3(401)475-785493 [place] [address] 07-28-2024 15:00-0500 Body weight 117.[address] Gladis Nava MD Work Phone: 5(655)209-911293 [place] [address] 07-28-2024 15:00-0500 Diastolic blood pressure 82 mm[Hg] Dr. Gladis Nava MD Work Phone: 3(118)237-208493 [place] [address] 07-28-2024 15:00-0500 SaO2% (BldA) [Mass fraction] 97 % Dr. Gladis Nava MD Work Phone: 4(766)813-070193 [place] [address] 07-28-2024 15:00-0500 Systolic blood pressure 183 mm[Hg] Dr. Gladis Nava MD Work Phone: 6(931)776-043293 [place] [address] 11-29-2023 11:01-0400 Body height 191.8 cm Marlon Del Valle MD Work Phone: [facility] 11-29-2023 11:01-0400 Body mass index (BMI) [Ratio] 32.07 kg/m2 Marlon Del Valle MD Work Phone: [facility] 11-29-2023 11:01-0400 Body temperature 98.01 [degF] Marlon Del Valle MD Work Phone: [facility] 11-29-2023 11:01-0400 Body weight 117.94 kg Marlon Del Valle MD Work Phone: [facility] 11-29-2023 11:01-0400 Diastolic blood pressure 88 mm[Hg] Marlon Del Valle MD Work Phone: [facility] 11-29-2023 11:01-0400 Heart rate 72 /min Marlon Del Valle MD Work Phone: [facility] 11-29-2023 11:01-0400 Systolic blood pressure 185 mm[Hg] Marlon Del Valle MD Work Phone: [facility] 09-27-2023 10:51-0400 Body height 193 cm Marlon Del Valle MD Work Phone: [facility] 09-27-2023 10:51-0400 Body temperature 97.7 [degF] Marlon Del Valle MD Work Phone: [facility] 09-06-2022 10:54-0500 SaO2% (BldA) [Mass fraction] 90 % Dr. Gladis Nava Work Phone: [facility] 09-06-2022 10:00-0500 Inhaled oxygen flow rate 2 L/min Dr. Gladis Nava Work Phone: [facility] 09-06-2022 09:56-0500 Body temperature 97.7 [degF] Dr. Gladis Nava Work Phone: [facility] 09-06-2022 09:56-0500 Diastolic blood pressure 62 mm[Hg] Dr. Gladis Nava Work Phone: [facility] 09-06-2022 09:56-0500 Heart rate 77 /min Dr. Gladis Nava Work Phone: [facility] 09-06-2022 09:56-0500 Respiratory rate 17 /min Dr. Gladis Nava Work Phone: [facility] 09-06-2022 09:56-0500 Systolic blood pressure 152 mm[Hg] Dr. Gladis Nava Work Phone: [facility] 09-05-2022 15:20-0500 Body height 193.[address] Gladis Nava Work Phone: [facility] 09-04-2022 16:01-0500 Body weight [address] Gladis Nava Work Phone: [facility] 09-03-2022 23:35-0500 Inhaled oxygen concentration 35 % Dr. Gladis Nava Work Phone: [facility] 09-03-2022 22:06-0500 Body mass index (BMI) [Ratio] 31.1 kg/m2 Dr. Gladis Nava Work Phone: [facility] 09-03-2022 21:38-0500 Body temperature 98.2 [degF] Dr. Gladis Nava Work Phone: [facility] 09-03-2022 21:38-0500 Diastolic blood pressure 76 mm[Hg] Dr. Gladis Nava Work Phone: [facility] 09-03-2022 21:38-0500 Heart rate 75 /min Dr. Gladis Nava Work Phone: [facility] 09-03-2022 21:38-0500 Inhaled oxygen flow rate 3 L/min Dr. Gladis Nava Work Phone: [facility] 09-03-2022 21:38-0500 Respiratory rate 20 /min Dr. Gladis Nava Work Phone: [facility] 09-03-2022 21:38-0500 SaO2% (BldA) [Mass fraction] 94 % Dr. Gladis Nava Work Phone: [facility] 09-03-2022 21:38-0500 Systolic blood pressure 160 mm[Hg] Dr. Gladis Nava Work Phone: 7(537)839-685842 [address] 09-03-2022 16:48-0500 Body height 190.[address] Gladis Nava Work Phone: 5(853)105-811893 [place] [address] 09-03-2022 16:48-0500 Body mass index (BMI) [Ratio] 31.6 kg/m2 Dr. Gladis Nava Work Phone: 5(671)693-050693 [place] [address] 09-03-2022 16:48-0500 Body weight [address] Gladis Nava Work Phone: 3(369)165-129693 [place] [address] 07-31-2022 06:41-0500 Body mass index (BMI) [Ratio] 31.1 kg/m2 Dr. Gladis Nava Work Phone: 2(818)103-416993 [place] [address] 07-31-2022 06:41-0500 Body temperature 97.5 [degF] Dr. Gladis Nava Work Phone: 2(387)901-288242 [address] 07-31-2022 06:41-0500 Body weight 116.[address] Gladis Nava Work Phone: 3(213)036-867342 [address] 07-31-2022 06:41-0500 Diastolic blood pressure 69 mm[Hg] Dr. Gladis Nava Work Phone: [facility] 07-31-2022 06:41-0500 Heart rate 71 /min Dr. Gladis Nava Work Phone: 4(051)084-133093 [place] [address] 07-31-2022 06:41-0500 Respiratory rate 18 /min Dr. Gladis Nava Work Phone: [facility] 07-31-2022 06:41-0500 SaO2% (BldA) [Mass fraction] 99 % Dr. Gladis Nava Work Phone: 2(910)373-098593 [place] [address] 07-31-2022 06:41-0500 Systolic blood pressure 143 mm[Hg] Dr. Gladis Nava Work Phone: [facility] 06-12-2017 05:35-0500 BMI (Body Mass Index) 28.48 kg/m2 Joleen Yensho CARDIOPULMONARY TECHNOLOGIST CHIEF [facility] Work Phone: 06-12-2017 05:35-0500 Body Temperature 97.5 [degF] Joleen Yensho CARDIOPULMONARY TECHNOLOGIST CHIEF [facility] Work Phone: 06-12-2017 05:35-0500 BP Diastolic 74 mm[Hg] Joleen Yensho CARDIOPULMONARY TECHNOLOGIST CHIEF [facility] Work Phone: 06-12-2017 05:35-0500 BP Systolic 146 mm[Hg] Joleen Yensho CARDIOPULMONARY TECHNOLOGIST CHIEF [facility] Work Phone: 06-12-2017 05:35-0500 Height 193.04 cm Joleen Yensho CARDIOPULMONARY TECHNOLOGIST CHIEF [facility] Work Phone: 06-12-2017 05:35-0500 Respiratory Rate 18 /min Joleen Yensho CARDIOPULMONARY TECHNOLOGIST CHIEF [facility] Work Phone: 06-12-2017 05:35-0500 Weight 106.14 kg Joleen Yensho CARDIOPULMONARY TECHNOLOGIST CHIEF [facility] Work Phone: Encounters Encounter Date Encounter Type Care Provider Facility Start: 11-16-2024 End: 11-16-[address] Gladis Nava MD Work Phone: [facility] Work Phone: Start: 11-16-2024 End: 11-16-[address] Gladis Nava MD -Laboratory, [place] Work Phone: Start: 11-16-2024 End: 11-16-2024 ambulatory Gladis Nava Facility:[facility] Start: 10-26-2024 End: 11-11-[address] Gladis Nava MD -Nutritional Servic es Work Phone: Start: 10-26-2024 End: 11-11-2024 ambulatory Gladis Nava Facility:[facility] Start: 10-21-2024 End: 10-21-2024 Patient encounter procedure Lissette PRETTY -[facility] Work Phone: Start: 10-21-2024 End: 10-21-2024 ambulatory Gladis Nava Facility[place] Start: 10-01-2024 End: 10-01-[address] Gladis Nava MD Work Phone: [facility] Work Phone: Start: 10-01-2024 End: 10-01-[address] Gladis Nava MD -Physical Therapy Work Phone: Start: 09-18-[address] Gladis Nava MD -Physical Therapy Work Phone: Start: 09-10-2024 End: 09-10-[address] Gladis Nava MD Work Phone: [facility] Work Phone: Start: 09-10-2024 End: 09-10-[address] [facility] Start: 09-10-2024 End: 09-10-2024 ambulatory Gladis Nava Facility:[facility] Start: 08-13-2024 End: 08-13-[address] [facility] Start: 08-13-2024 End: 08-13-2024 ambulatory Gladis Nava Facility:[facility] Start: 08-06-2024 End: 08-06-[address] [facility] Start: 08-06-2024 End: 08-06-2024 ambulatory Gladis Nava Facility:[facility] Start: 07-28-2024 End: 07-28-2024 Emergency department patient visit Dr. Jaya Quick DO -Emergency Department Work Phone: Start: 07-28-2024 End: 07-28-[address] [facility] Start: 07-28-2024 End: 07-28-2024 ambulatory Gladis Nava Facility:[facility] Start: 07-27-2024 End: 07-27-[address] Gladis Nava MD -Radiology, [place] Work Phone: Start: 07-27-2024 End: 07-27-2024 ambulatory Gladis Nava Facility:[facility] Start: 12-30-2023 End: 12-30-2023 ambulatory Gladis Nava Facility:[facility] Start: 11-29-2023 ambulatory [facility] Start: 11-29-2023 End: 11-29-2023 ambulatory [facility] Start: 11-29-2023 End: 11-29-2023 Encounter for other preprocedural examination [facility] Start: 11-29-2023 End: 11-29-2023 Office outpatient visit 40 minutes Marlon Del Valle MD Work Phone: [facility] Comment on above: BPH with obstruction /lower urinary tract symptoms (Primary Dx); Preop testing; 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 Start: 11-29-2023 End: 11-29-2023 Patient encounter status Marlon Del Valle MD Work Phone: [facility] Start: 10-30-2023 End: 10-30-2023 ambulatory [facility] Start: 10-30-2023 End: 10-30-2023 Office outpatient visit 25 minutes Marlon Del Valle MD Work Phone: [facility] Comment on above: BPH with obstruction /lower urinary tract symptoms (Primary Dx); Urinary frequency; Need for prophylactic antibiotic Start: 10-11-2023 End: 10-12-2023 ambulatory [facility] Start: 10-11-2023 End: 10-11-2023 Subsequent hospital visit by physician [facility] Comment on above: BPH with obstruction /lower urinary tract symptoms Start: 09-27-2023 End: 09-27-2023 ambulatory [facility] Start: 09-27-2023 End: 09-27-2023 Office outpatient new 45 minutes Marlon Del Valle MD Work Phone: [facility] Comment on above: BPH with obstruction /lower urinary tract symptoms (Primary Dx); Urinary frequency Start: 06-17-2023 End: 06-17-2023 ambulatory [facility] Work Phone: Start: 06-17-2023 End: 06-17-2023 Patient encounter procedure [facility] Start: 09-20-2022 End: 09-20-[address] Gladis Nava Work Phone: [facility] Work Phone: Start: 09-20-2022 End: 09-20-[address] Gladis Nava Work Phone: [facility] Start: 09-06-2022 Non-patient / Non-visit Dr. Robert Nava Work Phone: [facility] Start: 09-05-2022 Non-patient / Non-visit Dr. Robert Nava Work Phone: [facility] Start: 09-04-2022 End: 09-06-2022 Evaluation and management of inpatient Dr. Gladis Nava [facility] Start: 09-04-2022 Non-patient / Non-visit Dr. Robert Nava Work Phone: [facility] Start: 09-03-2022 Non-patient / Non-visit Dr. Robert Nava Work Phone: [facility] Start: 09-03-2022 Evaluation and manag ement of inpatient Dr. Gladis Nava Work Phone: [facility] Start: 09-03-[address] Gladis Nava Work Phone: [facility] Work Phone: Start: 07-31-2022 End: 07-31-[address] Gladis Nava Work Phone: [facility]-Pulmonary Medicine [facility] Start: 03-27-2022 End: 03-27-2022 ambulatory [facility] Work Phone: Start: 03-27-2022 End: 03-27-2022 Patient encounter procedure [facility] Start: 12-25-2021 End: 12-25-2021 Patient encounter procedure [facility] Start: 11-02-2021 End: 11-02-2021 Patient encounter procedure [facility] Start: 10-26-2021 End: 10-26-2021 Patient encounter procedure [facility] Start: 10-25-2021 End: 10-25-2021 [facility] Procedures Date Procedure Procedure Detail Performing Clinician Start: 09-10-2024 Urine microalbumin/c reatinine ratio measurement Dr. Gladis Nava MD Work Phone: Comment on above: UNABLE TO CALCULATE Start: 08-13-2024 Measurement of renal function Dr. Gladis Nava MD Work Phone: Comment on above: GFR Calc Start: 08-13-[address] Gladis Nava MD Work Phone: Start: 08-13-2024 Urnls dip stick/tabl et reagent auto microscopy Dr. Gladis Nava MD Work Phone: Start: 08-06-2024 Urnls dip stick/tabl et reagent auto microscopy Dr. Gladis Nava MD Work Phone: Start: 08-06-[address] Gladis Nava MD Work Phone: Start: 07-28-2024 CT angiography of ch est with contrast Dr. Gladis Nava MD Work Phone: Start: 07-28-2024 D-dimer assay, quantitative Dr. Gladis Nava MD Work Phone: Comment on above: D-Dimer ELEVATED (>0 .49): Additional studies and clinicalassessments are indicated to conclude diagnosis of:Deep Vein Thrombosis (DVT) or Pulmonary Embolism (PE)CRITICAL VALUE CALLED TO [id number] [facility] Mahsa Chandra.RESULTS READ BACK BY SAME. Start: 07-28-2024 Electrophoresis: [id number] Dr. Gladis Nava MD Work Phone: Start: 07-28-2024 Electrophoresis: [id number] Dr. Gladis Nava MD Work Phone: Start: 07-28-2024 Electrophoresis: teresa ma globulin Dr. Gladis Nava MD Work Phone: Start: 07-28-2024 Measurement of renal function Dr. Gladis Nava MD Work Phone: Comment on above: GFR Calc Start: 07-27-2024 X-ray of chest, PA a nd lateral views Dr. Gladis Nava MD Work Phone: Start: 11-29-2023 CASE REQUEST OPERATING ROOM MARLON DEL VALLE Start: 11-29-2023 POCT UA (NONAUTOMATED) MARLON DEL VALLE Start: 11-29-2023 Urnls dip stick/tabl et rgnt non-auto w/o micrscp Marlon Del Valle MD Work Phone: Start: 10-11-2023 MR PROSTATE CONOR BOUNDARIES MARLON DEL VALLE Start: 10-11-2023 Mri pelvis w/o & w/c ontrast material Marlon Del Valle MD Work Phone: Start: 09-27-2023 POCT UA AUTOMATED MA NUALLY RESULTED MARLON DEL VALLE Start: 09-27-2023 MEASURE POST VOID RESIDUAL MARLON DEL VALLE Start: 09-27-2023 Urnls dip stick/tabl et rgnt auto w/o microscopy Marlon Del Valle MD Work Phone: Start: 09-27-2023 MEASURE POST VOID RESIDUAL Marlon Del Valle MD Work Phone: Start: 09-03-2022 CT angiography of ch est with contrast Dr. Gladis Nava Work Phone: Start: 09-03-2022 Plain chest X-ray Dr. Julissa Nava Work Phone: Start: 06-12-2017 End: 06-12-2017 Cciiv4 vaccine preservative free 0.5 ml im use Kash Calle DO Work Phone: Bacteria identified in Blood by Culture Dr. Gladis Nava Work Phone: H/O: surgery History of prost ate surgery History of repair of inguinal hernia H/O bilateral inguinal hernia repair Laboratory test resu lt abnormal Abnormal laboratory test Dr. Gladis Nava MD Work Phone: SARS-CoV-2 & FLU Ant igen (Rapid) Dr. Gladis Nava Work Phone: Plan of Treatment Date Care Activity Detail Author Start: 01-25-2025 ambulatory Ambulatory Facility:[facility] Start: 07-28-2024 [facility] Start: 03-15-2024 Influenza vaccination Influenza Vaccine (Season Ended) [facility] Start: 12-27-2023 End: 12-27-2023 Admission to same day surgery center 12/27/2023 10:55 AM EDT - 12/27/2023 12:20 PM EDT Surgery [facility] [place] [address] [place] [address] [place] [address] [place] [address] Greenlight Photoselective Vaporization of Prostate ( Green light - 3rd case or later. [49417 (CPT )] [facility] [place] Comment on above: Greenlight Photoselective Vaporization o f Prostate ( Green light - 3rd case or later. [22246 (CPT )] Start: 12-27-2023 End: 12-27-2023 Laser vaporization of prostate for urine flow Ablation Transurethral Prostate BPH with obstruction/lower urinary tract symptoms 12/27/2023 10:55 AM EDT [facility] [place] Start: 12-27-2023 Subsequent hospital visit by physician 12/27/2023 9:25 AM EDT Hospital Encounter [facility] [place] [address] [place] [address] [place] [address] [place] [address] [facility] [place] Start: 12-18-2023 End: 12-18-2023 Admission to establishment 12/18/2023 12:45 PM EDT Pre-Admission Testing [facility] [address] [place] [address] [facility] Start: 12-13-2023 End: 01-29-2024 Bacteria identified in Urine by Culture Urine Culture Microbiology Routine BPH with obstruction/lower urinary tract symptoms Preop testing Expected: 12/13/2023 (Approximate), Expires: 01/29/2024 [facility] Work Phone: Comment on above: Expected: 12/13/2023 (Approximate), Expi res: 01/29/2024 Start: 12-13-2023 End: 11-28-2024 Basic metabolic 2000 panel - Serum or Plasma Basic Metabolic Panel Lab Routine BPH with obstruction/lower urinary tract symptoms Preop testing Expected: 12/13/2023 (Approximate), Expires: 11/28/2024 [facility] Work Phone: Comment on above: Expected: 12/13/2023 (Approximate), Expi res: 11/28/2024 Start: 12-13-2023 End: 01-29-2024 CBC panel - Blood by Automated count CBC Lab Routine BPH with obstruction/lower urinary tract symptoms Preop testing Expected: 12/13/2023, Expires: 01/29/2024 [facility] Work Phone: Comment on above: Expected: 12/13/2023, Expires: Start: 12-13-2023 End: 11-28-2024 Prothrombin time (PT) Protime-INR Lab Routine BPH with obstruction/lower urinary tract symptoms Preop testing 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 Expected: 12/13/2023 (Approximate), Expires: 11/28/2024 [facility] Work Phone: Comment on above: Expected: 12/13/2023 (Approximate), Expi res: 11/28/2024 Start: 11-29-2023 End: 11-28-2024 Request for Pre-Admission Testing Visit Request for Pre-Admission Testing Visit Procedures Routine Preop testing Expected: 11/29/2023 (Approximate), Expires: 11/28/2024 [facility] Service Area Work Phone: Comment on above: Expected: 11/29/2023 (Approximate), Expi res: 11/28/2024 Start: 10-30-2023 End: 10-30-2023 Telemedicine consultation with patient 10/30/2023 2:20 PM EDT Telemedicine [facility] [address] [place] [address] [place] [address] [place], [place] [id number] [facility] Start: 10-30-2023 End: 10-29-2024 Cystourethroscopy Cystourethroscopy Procedure Routine BPH with obstruction/lower urinary tract symptoms Expected: 10/30/2023 (Approximate), Expires: 10/29/2024 [facility] Service Area Work Phone: Comment on above: Expected: 10/30/2023 (Approximate), Expi res: 10/29/2024 Start: 10-11-2023 End: 10-11-2023 Patient encounter procedure 10/11/2023 9:30 AM EDT Appointment [address] [address] [facility] Start: 09-27-2023 End: 09-26-2024 MR Prostate MR prostate with conor boundaries Imaging Routine BPH with obstruction/lower urinary tract symptoms Expected: 09/27/2023, Expires: 09/26/2024 [facility] Service Area Work Phone: Comment on above: Expected: 09/27/2023, Expires: Start: 03-15-2023 COVID-19 Vaccine () COVID-19 Vaccine () [facility] Start: 03-15-2023 Influenza vaccination Influenza Vaccine (#1) [facility] Start: 09-06-2022 Patient discharge [facility] Start: 09-05-2022 Physiotherapy of chest [facility] Start: 09-04-2022 Continuous positive airway pressure ventilation treatment [facility] Start: 09-04-2022 Admission procedure [facility] Start: 09-04-2022 Inhalation therapy procedure [facility] Start: 09-03-2022 Following clinical pathway protocol [facility] Start: 09-03-2022 Assessment of risk of venous thromboembolism [facility] Start: 09-03-2022 Insertion of catheter into peripheral vein [facility] Start: 09-03-2022 Measuring intake and output [facility] Start: 09-03-2022 Oxygen therapy [facility] Start: 09-03-2022 Providing care according to standard [facility] Start: 09-03-2022 Provision of activity privileges [facility] Start: 09-03-2022 Referral to service [facility] Start: 09-03-[address] [facility] Start: 09-03-2022 End: 09-03-2022 Factor V Leiden genotype [facility] Start: 09-03-2022 End: 09-03-2022 [facility] Start: 09-03-2022 Verification routine [facility] Start: 09-03-2022 Admission procedure [facility] Start: 09-03-2022 Blood culture [facility] Start: 09-03-2022 Patient referral to dietitian [facility] Start: 01-31-2020 Pneumococcal Vaccine: 65+ Years (2 - PPSV23 or PCV20) Pneumococcal Vaccine: 65+ Years (2 - PPSV23 or PCV20) [facility] Start: 03-27-2019 Pneumococcal Vaccine: 65+ Years (2 of 2 - PPSV23 or PCV20) Pneumococcal Vaccine: 65+ Years (2 of 2 - PPSV23 or PCV20) [facility] Start: 07-24-2017 End: 07-24-2017 Appointment Appointment [facility] Phone: Start: 06-12-2017 End: 06-12-2017 [facility] Phone: Start: 06-12-2017 End: 06-12-2017 Follow Up Appt 6 weeks Follow Up Appt 6 weeks [facility] Phone: Start: 06-12-2017 End: 06-12-2017 Pulmonary Function Test - complete Pulmonary Function Test - complete [facility] Phone: Start: 06-12-2017 End: 06-12-2017 Appointment Appointment [facility] Phone: Start: 1999 RSV patients and/or patients aged 60+ years (1 - 1-dose 60+ series) RSV patients and/or patients aged 60+ years (1 - 1-dose 60+ series) [facility] Start: 1961 DTaP/Tdap/Td Vaccines (1 - Tdap) DTaP/Tdap/Td Vaccines (1 - Tdap) [facility] Start: 1939 Lipid panel Lipid Panel [facility] Start: 1939 Medicare Annual Wellness Visit Medicare Annual Wellness Visit (AWV) [facility]rombin III ass ay, functional [facility] Bacteria identified in Blood by Culture Blood Culture [facility] Bacteria identified in Blood by Culture Blood Culture [facility] Beta 2 glycoprotein 1 IgA Ab [Presence] in Serum [facility] Beta 2 glycoprotein 1 IgG Ab [Presence] in Serum [facility] Beta 2 glycoprotein 1 IgM Ab [Presence] in Serum [facility] Cardiolipin IgG Ab [Units/volume] in Serum or Plasma [facility] Cardiolipin IgM Ab [Units/volume] in Serum or Plasma [facility] F5 gene mutations fo und [Identifier] in Blood or Tissue by Molecular genetics method Nominal [facility] MR Prostate MR prostate with conor boundaries Imaging Routine BPH with obstruction/lower urinary tract symptoms 10/11/2023 11:15 AM EDT [facility] Service Area Work Phone: Patient referral [facility] Work Phone: Protein C [Units/vol ume] in Platelet poor plasma by Coagulation assay [facility] Protein C Ag actual/ normal in Platelet poor plasma by Immunoassay [facility] SARS-CoV-2 (COVID-19 ) Ag [Presence] in Respiratory specimen by Rapid immunoassay [facility] Targeted analysis fo r gene mutation [facility] Immunizations Immunization Date Immunization Notes Care Provider Fa cility 09-23-2020 Covid (Moderna) [facility] 08-26-2020 Covid (Moderna) [facility] 06-02-2020 influenza virus vaccine, unspecified formulation Marlon Del Valle MD Work Phone: [facility] Work Phone: 06-25-2019 Fluad 2018- 65yr up(PF)45 mcg(15 mcgx3)/0.5 mL intramuscular syringe (flu vac [facility] Work Phone: 06-12-2017 [id number] Joleen Roman LPN [facility] Work Phone: Payers Date Payer Category Payer Self-pay [id number] 2023 Medicare [facility] MEDICARE FORMERLY [facility] MEDICARE ADVANTAGE [id number] 2023-Present [address] [place] [address] [id number] 2023 Medicare [id number] 2004 Medicare [id number] 1940 Unknown [id number] 1939 Unknown [id number] 2.840.1.162484.3.579.2.124 1940 Unknown [id number] 2.840.1.555468.3.579.2.1244 1939 Unknown [id number] 2.0.1.786852.3.579.2.1243 1939 Unknown [id number] 2.0.1.311291.3.579.2.1244 Medicare MMO MEDICARE [id number] Unknown [id number] Unknown [id number] Unknown AARP [id number] Unknown AARP [id number] Unknown [id number] [id number] Unknown [id number] 2.0.1.106848.3.579.2.462 Unknown [id number] 2.0.1.049431.3.579.2.462 Unknown [id number] 2.0.1.561088.3.579.2.462 Unknown [id number] 2.0.1.771781.3.579.2.462 Unknown [id number] 2.840.1.474152.3.579.2.462 Unknown [id number] 2.840.1.228067.3.579.2.462 Unknown [id number] 2.840.1.069797.3.579.2.462 Unknown [id number] 2.16.840.1.567997.3.579.2.462 Unknown [id number] 2.16.840.1.919158.3.579.2.462 Unknown [id number] 2.16.840.1.422036.3.579.2.462 Unknown [id number] 2.16.840.1.847746.3.579.2.462 Social History Date Type Detail Facility Start: 04-27-2021 End: 01-14-2023 Tobacco smoking status NHIS Unknown if ever smoked [facility] Start: 1940 Sex Assigned At Male [facility] Start: 09-27-2023 End: 07-28-2024 Tobacco smoking status NHIS Never smoked tobacco [facility] Work Phone: Start: 09-27-2023 Tobacco use and exposure Smokeless tobacco non-user [facility] Work Phone: Start: 1940 Sex Assigned At Not on file [facility] Work Phone: Start: 09-27-2023 End: 11-29-2023 Gender identity Not on file [facility] Work Phone: Start: 09-17-2023 End: 11-29-2023 Exposure to SARS-CoV-2 (event) Not sure [facility] Start: 09-27-2023 End: 11-29-2023 History of Social function [facility] Work Phone: Start: 09-22-2024 End: 10-05-2024 Sex Male (finding) [facility] Goals Date Patient Goal Desired Activity /State Functional Status Date Assessment Result Facility 09-06-[address] [facility] Work Phone: Mental Status Date Assessment Result Facility 07-28-2024 Cognitive function Level Of Cons ciousness Awake;Alert;Appropriate;Follow s Commands [facility] Work Phone: 02-23-2023 Cognitive function Voice/Name [facility] Work Phone: Clinical Notes 09-03-2022 to 10-21-2024 Note Date & Type Note Facility 10-21-2024 Evaluation note Diagnosis Onset Date Resolution Irregular heart rhythm acute Ap 2024 3:16pm Memory impairment acute October 212024 3:16pm Asthma chronic October 21 3:16pm FREDI (obstructive sleep apnea) chronic October 21, 2024 3:16pm [facility] Work Phone: 1(374) 676-982603-20-2025 Discharge summary Author Gladis Jones [facility] Note Date/Time October 01, 2024 7:0 0pm [facility] Physical [facility] [address] [place] [address] / REHABILITATION SERVICES DISCHARGE SUMMARY MR#: [id number] Acct: [id number] Name: CINDY COSTA Rep #: [id number] : 1940 84 From: Gladis Jones DPT, OCS, CSCS Referring Dr.: Dr. Gladis Nava MD Status: REG RCR Insurance: [employer]URANCE Discharge Summary D/C summary: It has been my pleasure to treat CINDY COSTA referred by Dr. Gladis Nava MD, with the diagnosis of gait instability for a total of 13 visit(s). Discharge Date: Please see the following information for a summary of their discharge status. Subjective Subjective: I am doing well. I feel good walking at home. No falls. Balance feels pretty good. Activities pretty normal at home. Basic ADLs are I. HEP going well. Doing well with home exercises. Using wh walker as needed at home. Steps at home yesterday and every other day. Overall Improvement % Improvement: 80 Objective Objective/Function: FGa much improved 9 points from day one and 3 points over last 3 weeks, still needing UE to exit chair, two rails on steps and lacks FW weight shift. Ready to be on hos own vs wanting more theerapy. Goals Goal 1:: FGA to limit fall risk Goal Progress: Goal Met Goal 2:: I use of appropriate AD to limit future fall risk Goal Progress: Goal Met Goal 3:: I apporpriate strength and weight shift program at home HEP Goal Progress: Goal Met Goal 4:: steps reciprocally with one rail with good forward weight shift Goal Progress: 2 rails Goal 5:: exit chair without UE I Goal Progress: neds UEE Goal 6:: 40 LEFS Goal Progress: Goal Met Plan Plan: d/c D/C Information d/c sentence: If there are questions or concerns regarding this patient's physical therapy, please feel free to call me at [phone]. Thank you for the referral of thispatient. Sincerely, Gladis Jones DPT, OCS, CSCS Balance/Gait/Functional tests Balance/Special Test Scores Functional Gait Assessment Score: 23 % Disability: 23.3400 CATSIB Score (Max score 120 seconds): 62 Lower Extremity Functional Score: 70 Improvement % Improvement: 80 <Electronically signed by ELIZABETH Alas DPT, CSCS> 10/01/24 1202 CC: Dr. Gladis Nava MD ~ EBG Signed [facility] Work Phone: 1(607) 236-226003-20-2025 Discharge summary [facility] [address] [place] [address] [address] [place] [address] / REHABILITATION SERVICES DISCHARGE SUMMARY MR#: [id number] Acct: [id number] Name: CINDY COSTA Rep #: [id number] : 1940 84 From: Gladis Jones DPT, ELIZABETH, CSCS Referring Dr.: Dr. Gladis Nava MD Status: REG RCR Insurance: [employer] INSURANCE Discharge Summary D/C summary: It has been my pleasure to treat CINDY COSTA referred by Dr. Gladis Nava MD, with the diagnosis of gait instability for a total of 13 visit(s). Discharge Date: Please see the following information for a summary of their discharge status. Subjective Subjective: I am doing well. I feel good walking at home. No falls. Balance feels pretty good. Activities pretty normal at home. Basic ADLs are I. HEP going well. Doing well with home exercises. Using wh walker as needed at home. Steps at home yesterday and every other day. Overall Improvement % Improvement: 80 Objective Objective/Function: FGa much improved 9 points from day one and 3 points over last 3 weeks, still needing UE to exit chair, two rails on steps and lacks FW weight shift. Ready to be on hos own vs wanting more theerapy. Goals Goal 1:: FGA to limit fall risk Goal Progress: Goal Met Goal 2:: I use of appropriate AD to limit future fall risk Goal Progress: Goal Met Goal 3:: I apporpriate strength and weight shift program at home HEP Goal Progress: Goal Met Goal 4:: steps reciprocally with one rail with good forward weight shift Goal Progress: 2 rails Goal 5:: exit chair without UE I Goal Progress: neds UEE Goal 6:: 40 LEFS Goal Progress: Goal Met Plan Plan: d/c D/C Information d/c sentence: If there are questions or concerns regarding this patient's physical therapy, please feel free to call me at [phone]. Thank you for the referral of thispatient. Sincerely, Gladis Jones, DPT, OCS, CSCS Balance/Gait/Functional tests Balance/Special Test Scores Functional Gait Assessment Score: 23 % Disability: 23.3400 CATSIB Score (Max score 120 seconds): 62 Lower Extremity Functional Score: 70 Improvement % Improvement: 80 10/01/24 1202 CC: Dr. Gladis Nava MD ~ EBG Signed [facility]05-17-2024 History of Present illness Narrative* Marlon Del Valle MD - 11/29/2023 11:20 AM EDT Scribed for Dr. Marlon eDl Valle by Marck Gardner. I, Dr. Marlon Del Valle, have personally reviewed and agreed with the information entered by the Virtual Scribe. 11/29/23 History of Present Illness (HPI): TODAY: (11/29/23) Cindy Costa is a 83 y.o. male with history of BPH with LUTS. Previously followed by urologyat an outside facility, s/p cystoscopy and an outlet procedure with them (remote). Tried tamsulosinin the past with no improvement. Continues on myrbetriq with some mild improvement of his LUTS. Primarily complains of slow stream, frequency and urgency, as well as some leakage. Notes his leakage is not preceded by urgency. Presents today for cystoscopy in anticipation of an outlet procedure. Cystoscopy performed: Cindy Costa identified using two (2) forms of identification. Procedure: diagnostic cystourethroscopy Indications for procedure: LUTS Risks, benefits, and alternatives were discussed in detail. Patient appears to understand and agrees to proceed. Patient has signed the procedure consent form. Cystoscopy findings: Urethra: normal course and caliber, no evidence of stricture or lesion. Prostate: Able to visualize residual adenomal tissue, open BN. Bladder: Bladder very full with cloudy urine, limiting exam. Post-cystoscopy: Patient tolerated procedure without complications. No past medical history on file. No past surgical history on file. No family history on file. Social History Tobacco Use Smoking Status Never Smokeless Tobacco Never Current Outpatient Medications Medication Sig Dispense Refill alpha tocopherol (Vitamin E) 268 mg (400 unit) capsule Take 1 capsule (400 Units) by mouth once daily. donepezil (Aricept) 5 mg tablet Take 1 tablet (5 mg) by mouth. fluticasone propion-salmeteroL (Advair Diskus) 500-50 mcg/dose diskus inhaler Inhale 1 puff 2 timesa day. ramipril (Altace) 2.5 mg capsule Take 1 capsule (2.5 mg) by mouth once daily. No current facility-administered medications for this visit. Allergies Allergen Reactions Azithromycin Unknown Ciprofloxacin Unknown Past medical, surgical, family and social history in the chart was reviewed and is accurate including any additions to what is in this HPI. Review of systems (ROS): Pertinent information as listed in the HPI. Objective Visit Vitals BP (!) 185/88 Pulse 72 Temp 36.7 C (98 F) Physical Exam: Constitutional: NAD HEENT: AT/NC Resp: Non labored respirations. Skin: No jaundice or visible skin lesions. Neuro: No focal deficits. Psych: Appropriate mood and affect. Lab Review: No results found for: WBC, RBC, HGB, HCT, PLT No results found for: BUN, CREATININE No results found for: PSA, HGBA1C No results found for: CHOL, TRIG, HDL, LDLDIRECT, ALT, AST, NA, K, CL, CO2, TSH, INR, GLUF, ALBUR ASSESSMENT: Problem List Items Addressed This Visit BPH with obstruction/lower urinary tract symptoms - Primary Relevant Orders POCT UA (nonautomated) manually resulted (Completed) Case Request Operating Room: Ablation Transurethral Prostate (Completed) Basic Metabolic Panel CBC Protime-INR Urine Culture Other Visit Diagnoses Preop testing Relevant Orders Request for Pre-Admission Testing Visit Basic Metabolic Panel CBC Protime-INR Urine Culture 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 Relevant Orders Protime-INR PLAN: 1. BPH with LUTS Discussed non-surgical vs surgical options. In his case, recommended proceed with PVP. I do not recommend bladder botox at this time; Given his h/o incomplete emptying and risks of retention. He elects to proceed with Greenlight PVP. Risks, benefits, and complications discussed. Post-op course and expectations reviewed. Will schedule the OR appropriately. I discussed in detail the risks associated with the GreenLight laser PVP procedure, which include small risk of urinary incontinence, risk of erectile dysfunction, 60% risk of retrograde ejaculation,and additional risk of hematuria, UTI, and failure to improve urinary symptoms. All questions were answered to the patient s satisfaction. Patient agrees with the plan and wishes to proceed. Continue follow-up for ongoing care of his chronic medical conditions. I spent 40 minutes of dedicated E&M time, including preparation and review of records, notes, and data, time spent with patient/family, and documentation. Scribed for Dr. Marlon Del Valle by Marck Gardner. I, Dr. Marlon Del Valle, have personally reviewed and agreed with the information entered by the Virtual Scribe. 11/29/23 documented in this [facility] Work Phone: 1(454) 238-275304-17-2024 History of Present illness Narrative* Marlon Del Valle MD - 10/30/2023 2:20 PM EDT Subjective This visit was completed via telemedicine. All issues as below were discussed and addressed but no physical exam was performed unless allowed by visual confirmation. If it was felt that the patient should be evaluated in clinic, then they were directed there. Patient verbally consented to visit. Cindy Costa is a 83 y.o. male t with history of BPH with LUTS. Presenting today to review prostate MRI. LAST VISIT: Patient is a 83 y.o., male presenting as a new patient with history of BPH with LUTS. Previously followed by urology at an outside facility, s/p cystoscopy with them. Tried tamsulosin in the past with no improvement. Continues on myrbetriq with some mild improvement of his LUTS. Primarily complainsof slow stream, frequency and urgency, as well as some leakage. Notes his leakage is not preceded by urgency. No past medical history on file. No past surgical history on file. No family history on file. Current Outpatient Medications Medication Sig Dispense Refill alpha tocopherol (Vitamin E) 268 mg (400 unit) capsule Take 1 capsule (400 Units) by mouth once daily. donepezil (Aricept) 5 mg tablet Take 1 tablet (5 mg) by mouth. fluticasone propion-salmeteroL (Advair Diskus) 500-50 mcg/dose diskus inhaler Inhale 1 puff 2 timesa day. nitrofurantoin, macrocrystal-monohydrate, (Macrobid) 100 mg capsule Take 1 capsule (100 mg) by mouth 1 time for 1 dose. Take 1 capsule by mouth 1 hour prior to cystoscopy 1 capsule 0 ramipril (Altace) 2.5 mg capsule Take 1 capsule (2.5 mg) by mouth once daily. No current facility-administered medications for this visit. Allergies Allergen Reactions Azithromycin Unknown Social History Socioeconomic History Marital status: Spouse name: Not on file Number of children: Not on file Years of education: Not on file Highest education level: Not on file Occupational History Not on file Tobacco Use Smoking status: Never Smokeless tobacco: Never Substance and Sexual Activity Alcohol use: Not on file Drug use: Not on file Sexual activity: Not on file Other Topics Concern Not on file Social History Narrative Not on file Social Determinants of Health Financial Resource Strain: Not on file Food Insecurity: Not on file Transportation Needs: Not on file Physical Activity: Not on file Stress: Not on file Social Connections: Not on file Intimate Partner Violence: Not on file Housing Stability: Not on file Review of Systems Pertinent items are noted in HPI. Objective Lab Review Assessment/Plan Diagnoses and all orders for this visit: BPH with obstruction/lower urinary tract symptoms - Cystourethroscopy; Future Urinary frequency Need for prophylactic antibiotic - nitrofurantoin, macrocrystal-monohydrate, (Macrobid) 100 mg capsule; Take 1 capsule (100 mg) by mouth 1 time for 1 dose. Take 1 capsule by mouth 1 hour prior to cystoscopy BPH with LUTS I reviewed prostate MRI from 10/11/2023 which showed a 23.6g prostate with no sign of cancer. We will proceed with cystoscopy tin anticipation of an outlet procedure with concurrent botox injections. The risks of cystoscopy were discussed with the patient in great detail, including risk of hematuria, UTI and discomfort. Antibiotic will be prescribed to be taken 1 hour prior to the procedure. Patient agrees to proceed. All questions were answered to the patient's satisfaction. Patient agrees with the plan and wishes to proceed. Follow-up will be scheduled appropriately. E&M visit today is associated with current or anticipated ongoing medical care services relatedto a patient's single, serious condition or a complex condition. Scribed for Dr. Del Valle by Yoon Woodard. I , Dr Del Valle, have personally reviewed and agreed with the information entered by the Virtual Scribe. [facility] Phone: 1(171) 816-110104-17-2024 Instructions* Patient Instructions* Elvie Galvan RN - 10/30/2023 2:20 PM EDT Take antibiotic 1 hour prior to cystoscopy. We will need a urine sample during that appointment, so please arrive with a full enough bladder toleave a sample. There are no restrictions in medications, eating/drinking, and driving. [facility] Work Phone: 1(476) 632-479603-15-2024 History of Present illness Narrative* Marlon Del Valle MD - 09/27/2023 11:00 AM EDT SUBJECTIVE: HPI Patient is a 83 y.o., male presenting as a new patient with history of BPH with LUTS. Previously followed by urology at an outside facility, s/p cystoscopy with them. Tried tamsulosin in the past with no improvement. Continues on myrbetriq with some mild improvement of his LUTS. Primarily complainsof slow stream, frequency and urgency, as well as some leakage. Notes his leakage is not preceded by urgency. Past medical, surgical, family and social history in the chart was reviewed and is accurate including any additions to what is in this HPI. Review of Systems Constitutional: denies any unintentional weight loss or change in strength. Integumentary: denies any rashes or pruritus. Eyes: denies any double vision or eye pain. Ear/Nose/Mouth/Throat: denies any nosebleeds or gum bleeds. Cardiovascular: denies any chest pain or syncope. Respiratory: denies hemoptysis. Gastrointestinal: denies nausea or vomiting. Musculoskeletal: denies muscle cramping or weakness. Neurologic: denies convulsions or seizures. Hematologic/Lymphatic: denies bleeding tendencies. Endocrine: denies heat/cold intolerance. All other systems have been reviewed and are negative unless otherwise noted in the HPI. OBJECTIVE: Physical Exam Constitutional: NAD HEENT: AT/NC Resp: Non labored respirations. Skin: No jaundice or visible skin lesions. Neuro: No focal deficits. Psych: Appropriate mood and affect. Labs & Imaging: No results found for: WBC, HGB, HCT, PLT, CHOL, TRIG, HDL, LDLDIRECT, ALT, AST,NA, K, CL, CREATININE, BUN, CO2, TSH, PSA, INR, GLUF, HGBA1C, ALBUR ASSESSMENT: Problem List Items Addressed This Visit None Visit Diagnoses BPH with obstruction/lower urinary tract symptoms - Primary Relevant Orders MR prostate with conor boundaries Urinary frequency Relevant Orders POCT UA Automated manually resulted (Completed) Measure post void residual (Completed) PLAN: 1. BPH with LUTS Discussed potential etiologies for his incontinence including possible outlet obstruction.Discussedoptions including an outlet procedure however reviewed that this may not resolve completely with this. May be candidate for outlet procedure with concurrent botox. He will take some time to consider hisoptions and call if whether he wishes to proceed. In the meantime will continue myrbetriq and proceed with a prostate MRI to assess anatomy and characteristics. Schedule virtual follow up to review results and revisit surgical options. All questions were answered to the patient s satisfaction. Patient agrees with the plan and wishes to proceed. Follow-up will be scheduled appropriately. Scribed for Dr. Marlon Del Valle by Marck Gardner. I, Dr. Marlon Del Valle have personally reviewed and agreed with the information entered by the Homeforswapribe. 09/27/23 [facility] Work Phone: 1(761) 530-257403-15-2024 Instructions* Patient Instructions* Elvie Galvan RN - 09/27/2023 11:00 AM EDT Call [phone] to schedule your MRI documented [facility] Work Phone: 1(296) 180-567602-23-[address] Sue [facility] September 06, 2022 11:31am Note Date/Time September 06, 2022 8:35am [facility] Medical Records Department [address] [place] [address] Progress Note - Hospitalist 09/06/22833 MR#: [id number] Acct: [id number] Name: CINDY COSTA Rep #:[id number] : 1940 82 From: Gladis Sue DO PCP: Dr. Gladis Nava MD Status:ADM IN Location: [place] [address] Reason for Visit Reason for Visit: Diagnoses Obstructive sleep apnea (adult) (pediatric) (09/04/22) Non-ST elevation (NSTEMI) myocardial infarction (09/04/22) Other pulmonary embolism without acute cor pulmonale (09/04/22) Acute embolism and thrombosis of unspecified deep veins of unspecified lower extremity (09/04/22) Acute respiratory failure with hypoxia (09/04/22) Hypoxemia (09/04/22) Other specified abnormalities of plasma proteins (09/04/22) Subjective Subjective Feeling better. Oxygen has been able to wean down. Patient is breathing well. Objective Data Objective Data Vital Signs: Vital Signs Temp Pulse Resp BP Pulse Ox O2 Del Method O2 Flow Rate 36.6 C 64 18 155/85 H 95 Nasal Cannula 4 09/06/22 06:49 09/06/22 06:49 09/06/22 06:49 09/06/22 06:49 09/06/22 06:49 09/06/22 06:49 09/06/22 06:49 FiO2 35 09/03/22 23:35 Oxygen Flow Rate (L/min) 4 Oxygen Delivery Method Nasal Cannula Weight: 113 kg Body Mass Index (BMI) 31.1 Intake & Output: Intake and Output for Last 24 Hours 09/04/22 09/05/22 09/06/22 23:59 23:59 23:59 Intake Total 2037.21 / 2037.21 1100 / 1100 175.38 / 175.38 Output Total 1080 / 1080 100 / 100 200 / 200 Balance 957.21 / 957.21 1000 / 1000 -24.62 / -24.62 Lab / Micro Data Result Diagrams: 09/06/22 06:17 09/06/22 06:17 Labs: Laboratory Results - last 24 hr 09/05/22 11:48: APTT 55.8 H 09/06/22 06:17: APTT 58.4 H 09/06/22 06:17: WBC 6.0, RBC 4.61, Hgb 14.0, Hct 42.5, MCV 92.2, MCH 30.4, MCHC 32.9, RDW Std Deviation 45.6 H, RDW Coeff of Candy 13.6, Plt Count 222, MPV 8.5, Immature Gran % (Auto) 0.500, Neut % (Auto) 70.2 H, Lymph % (Auto) 13.2 L, Runnels % (Auto) 10.0, Eos % (Auto) 5.3 H, Baso % (Auto) 0.8, Absolute Neuts (auto) 4.2,Absolute Lymphs (auto) 0.79 L, Nucleated RBC % 0 09/06/22 06:17: Sodium 137, Potassium 4.1, Chloride 106, Carbon Dioxide 23.0, Anion Gap 8, BUN 24 H, Creatinine 1.25, Estim Creat Clear Calc 53.52, Est GFR (MDRD) Af Amer 71, Est GFR (MDRD) Non-Af 59 L, BUN/Creatinine Ratio 19.2, Glucose 137 H, Calcium 9.0 Micro: Microbiology 09/03/22 18:45 Nasal Secretion SARS-CoV-2 & FLU Antigen (Rapid) - Final Physical Exam Const alert and no apparent distress HEENT head/scalp atraumatic Resp normal respiratory effort, no retractions, no use of accessory muscles and clearto auscultation bilaterally Cardio regular rate, regular rhythm, S1 normal heart sound and S2 normal heart sound GI normal to inspection, nondistended, normoactive bowel sounds, soft to palpation,non-tender and non-distended Assessment & Plan Assessment/Plan (1) Pulmonary emboli: PLAN: Bilateral pulmonary emboli -Discussed anticoagulation options with ED provider and given that his oxygen saturation was 90s on room air and now is requiring 3 L to maintain 90 to 92% wewill start heparin drip in the event he develops any worsened respiratory compromise or hypotension that would require tenecteplase -If stable in the a.m. can likely switch to Eliquis or other DOAC -Rapid COVID-negative Echo showed EF of 70%. Right ventricular systolic pressure of 87 mmHg severe pulmonary hypertension. (2) Acute respiratory failure with hypoxia: PLAN: Acute hypoxic respiratory failure secondary to PE and pulmonary hypertension -O2, incentive spirometry -Heparin drip as above -PT consulted -May need ambulated to assess for O2 needs prior to discharge -Low suspicion for infectious process so we will hold off on antibiotics at thistime -BNP only 24 and no edema appreciated on imaging Ambulatory pulse ox, patient did well and did not require oxygen upon discharge. (3) NSTEMI, initial episode of care: PLAN: #NSTEMI likely type II -EKG with first-degree block but otherwise no significant abnormalities -First troponin minimally elevated and has no chest pain, second troponin pending -Obtaining echo, will hold off on consulting cardiology at this time pending results and clinical progress -CTA did note some moderate coronary artery calcifications, may need to consideroutpatient work-up once patient clinically stable -No chest pain at this time an alternate explanation for his shortness of breath Troponins went from 105 down to 47 (4) DVT (deep venous thrombosis): PLAN: Duplex shows acute DVT in the right soleus and in the left posterior tibial veins. As patient can be anticoagulated. No indication for IVC filter. (5) Pulmonary hypertension: PLAN: Group 4 Discussed with patient, his daughter is a nurse and the . This pulm hypertension this is graded as severe and is likely group 4 due to the PE. Patient does have known sleep apnea but has been compliant with using CPAP. PLAN: Plan Chronic conditions: * CKD stage III unclear subtype-Appears close to baseline however did receive co ntrast with CTA, will give some gentle hydration and check BMP in a.m.-We will hold lisinopril * FREDI #DVT ppx: Not indicated as on hep drip 09/06/22 1131 <Electronically signed by Gladis Sue DO> Cosigner Signature (if applicable): CC: ~ Signed [facility] Work Phone: 1([phone]) 113-618702-22-[address] Sue [facility] September 05, 2022 3:19pm Note Date/Time September 05, 2022 8:56am [facility] Medical Records Department [address] [place] [id number] Progress Note - Hospitalist 09/05/22 0850 MR#: [id number] Acct: [id number] Name: CINDY COSTA Rep #:[id number] : 1940 82 From: Gladis Sue DO PCP: Dr. Gladis Nava MD Status:ADM IN Location: [place] [address] Reason for Visit Reason for Visit: Diagnoses Obstructive sleep apnea (adult) (pediatric) (09/04/22) Non-ST elevation (NSTEMI) myocardial infarction (09/04/22) Other pulmonary embolism without acute cor pulmonale (09/04/22) Acute embolism and thrombosis of unspecified deep veins of unspecified lower extremity (09/04/22) Hypoxemia (09/04/22) Other specified abnormalities of plasma proteins (09/04/22) Subjective Subjective Breathing better, but still on oxygen. Objective Data Objective Data Vital Signs: Vital Signs Temp Pulse Resp BP Pulse Ox O2 Del Method O2 Flow Rate 36.8 C 68 18 156/85 H 98 Nasal Cannula 6 09/05/22 05:06 09/05/22 07:26 09/05/22 07:26 09/05/22 05:06 09/05/22 07:26 09/05/22 07:26 09/05/22 07:26 FiO2 35 09/03/22 23:35 Oxygen Flow Rate (L/min) 6 Oxygen Delivery Method Nasal Cannula Weight: 113 kg Body Mass Index (BMI) 31.1 Intake & Output: Intake and Output for Last 24 Hours 09/03/22 09/04/22 09/05/22 23:59 23:59 23:59 Intake Total 7.21 / 2036. 250 / 250 Output Total 1080 / 1080 100 / 100 Balance 957.21 / 957.21 150 / 150 Lab / Micro Data Result Diagrams: 09/04/22 04:48 09/04/22 04:48 Labs: Laboratory Results - last 24 hr 09/04/22 08:18: COVID-19 (NE) Not Detected 09/04/22 10:40: APTT 46.9 H 09/04/22 10:40: Troponin I High Sens 47 09/04/22 18:15: APTT 56.1 H 09/05/22 00:40: APTT 60.7 H 09/05/22 06:12: APTT 58.3 H Micro: Microbiology 09/03/22 18:45 Nasal Secretion SARS-CoV-2 & FLU Antigen (Rapid) - Final Radiography Diagnostic Testing: Radiology Impression Echocardiogram 09/03/22 22:06 Interpretation Summary The study was technically difficult. Left ventricular systolic function is normal. The estimated ejection fraction is 70 %. The right atrium is mildly enlarged. There is mild mitral annular calcification. Extension of the mitral annular calcification onto the base of the posterior mitral valve leaflet. Mild focal mitral valve calcification of the anterior leaflet. Trivial mitral valve insufficiency. Mild to moderate (1-2+) eccentric tricuspid valve insufficiency. Mild focal aortic valve calcification. Right ventricular systolic pressure estimated to be 87 mmHg. Severe pulmonary hypertension. Diastolic function is indeterminate. Ordering Physician: Noemi Manuel Referring Physician: Gladis Nava MD Performed By: Manda Carrero RCS Venous Doppler Study 09/04/22 05:55 Interpretation Summary Acute deep vein thrombosis is noted in the right soleus vein. Acute deep vein thrombosis is noted in the left posterior tibial vein. Ordering Physician: Noemi Manuel Referring Physician: Gladis Nava MD Performed By: Tan Paz RVT Physical Exam Const alert and no apparent distress HEENT head/scalp atraumatic Resp normal respiratory effort, no retractions, no use of accessory muscles and clearto auscultation bilaterally Cardio regular rate, regular rhythm, S1 normal heart sound and S2 normal heart sound GI normal to inspection, nondistended, normoactive bowel sounds, soft to palpation,non-tender and non-distended Extremity normal to inspection Assessment & Plan Assessment/Plan (1) Pulmonary emboli: PLAN: Bilateral pulmonary emboli -Discussed anticoagulation options with ED provider and given that his oxygen saturation was 90s on room air and now is requiring 3 L to maintain 90 to 92% wewill start heparin drip in the event he develops any worsened respiratory compromise or hypotension that would require tenecteplase -If stable in the a.m. can likely switch to Eliquis or other DOAC -Rapid COVID-negative Echo showed EF of 70%. Right ventricular systolic pressure of 87 mmHg severe pulmonary hypertension. (2) Acute respiratory failure with hypoxia: PLAN: Acute hypoxic respiratory failure secondary to PE and pulmonary hypertension -O2, incentive spirometry -Heparin drip as above -PT consulted -May need ambulated to assess for O2 needs prior to discharge -Low suspicion for infectious process so we will hold off on antibiotics at thistime -BNP only 24 and no edema appreciated on imaging (3) NSTEMI, initial episode of care: PLAN: #NSTEMI likely type II -EKG with first-degree block but otherwise no significant abnormalities -First troponin minimally elevated and has no chest pain, second troponin pending -Obtaining echo, will hold off on consulting cardiology at this time pending results and clinical progress -CTA did note some moderate coronary artery calcifications, may need to consideroutpatient work-up once patient clinically stable -No chest pain at this time an alternate explanation for his shortness of breath Troponins went from 105 down to 47 (4) DVT (deep venous thrombosis): PLAN: Duplex shows acute DVT in the right soleus and in the left posterior tibial veins. As patient can be anticoagulated. No indication for IVC filter. PLAN: Plan Chronic conditions: * CKD stage III unclear subtype-Appears close to baseline however did receive contrast with CTA, will give some gentle hydration and check BMP in a.m.-We will hold lisinopril * FREDI #DVT ppx: Not indicated as on hep drip Discussed with the patient and his family at bedside at length. Discussed that I would like to watch the patient least for another 24 hours to make sure he is continuing to improve given the severity of his PEs and severe pulmonary hypertension. Charges/Coding Visit Charges Inpatient E&M: 29790 Subs Hosp L2 09/05/22 7078 <Electronically signed by Gladis Sue DO> Cosigner Signature (if applicable): CC: ~ Signed [facility] Work Phone: 1(817) 206-927602-21-[address] Sue [facility] September 04, 2022 12:25pm Note Date/Time September 04, 2022 8:19am [facility] Medical Records Department [address] [place] [address] Progress Note - Hospitalist 09/04/22 0815 MR#: [id number] Acct: [id number] Name: CINDY COSTA Rep #:[id number] : 1940 82 From: Gladis Sue DO PCP: Dr. Gladis Nava MD Status:ADM IN Location: [place] [address] Reason for Visit Reason for Visit: Diagnoses Obstructive sleep apnea (adult) (pediatric) (09/03/22) Other pulmonary embolism without acute cor pulmonale (09/03/22) Hypoxemia (09/03/22) Other specified abnormalities of plasma proteins (09/03/22) Subjective Subjective Denies any lower extremity edema. No chest pain. Short of breath. Objective Data Objective Data Vital Signs: Vital Signs Temp Pulse Resp BP Pulse Ox O2 Del Method O2 Flow Rate 36.5 C L 82 19 H 150/99 H 91 Nasal Cannula 4 09/04/22 02:27 09/04/22 07:06 09/04/22 07:06 09/04/22 02:27 09/04/22 08:05 09/04/22 08:05 09/04/22 08:05 FiO2 35 09/03/22 23:35 Oxygen Flow Rate (L/min) 4 Oxygen Delivery Method Nasal Cannula Weight: 113 kg Body Mass Index (BMI) 31.1 Intake & Output: Intake and Output for Last 24 Hours 09/02/22 09/03/22 09/04/22 23:59 23:59 23:59 Intake Total 1048.53 / 1048.53 Output Total 400 / 400 Balance 648.53 / 648.53 Lab / Micro Data Result Diagrams: 09/04/22 04:48 09/04/22 04:48 Labs: Laboratory Results - last 24 hr 09/03/22 17:51: WBC 7.8, RBC 5.10, Hgb 15.2, Hct 47.1, MCV 92.4, MCH 29.8, MCHC 32.3, RDW Std Deviation 45.5 H, RDW Coeff of Candy 13.5, Plt Count 245, MPV 8.9, Immature Gran % (Auto) 0.300, Neut % (Auto) 75.5 H, Lymph % (Auto) 9.9 L, Runnels %(Auto) 11.6 H, Eos % (Auto) 2.3, Baso % (Auto) 0.4, Absolute Neuts (auto) 5.9, Absolute Lymphs (auto) 0.77 L, Nucleated RBC % 0 09/03/22 17:51: D-Dimer Quant (PE/DVT) 17.13 H* 09/03/22 17:51: Sodium 139, Potassium 4.4, Chloride 106, Carbon Dioxide 26.0, Anion Gap 7, BUN 20 H, Creatinine 1.32 H, Estim Creat Clear Calc 50.68, Est GFR (MDRD) Af Amer 67, Est GFR (MDRD) Non-Af 55 L, BUN/Creatinine Ratio 15.2, Glucose 123 H, Calcium 9.8, Troponin I High Sens 105 H 09/03/22 17:51: B-Natriuretic Peptide 24.4 09/03/22 17:51: PT 13.9, INR 1.1, APTT 29.8 09/04/22 04:48: WBC 7.4, RBC 4.84, Hgb 14.7, Hct 43.4, MCV 89.7, MCH 30.4, MCHC 33.9, RDW Std Deviation 44.3 H, RDW Coeff of Candy 13.6, Plt Count 213, MPV 8.5, Immature Gran % (Auto) 0.400, Neut % (Auto) 71.6 H, Lymph % (Auto) 14.0 L, Runnels % (Auto) 10.6 H, Eos % (Auto) 3.0, Baso % (Auto) 0.4, Absolute Neuts (auto) 5.3,Absolute Lymphs (auto) 1.03, Nucleated RBC % 0 09/04/22 04:48: Sodium 138, Potassium 4.4, Chloride 108 H, Carbon Dioxide 25.0, Anion Gap 5, BUN 18, Creatinine 1.29, Estim Creat Clear Calc 51.86, Est GFR (MDRD) Af Amer 68, Est GFR (MDRD) Non-Af 57 L, BUN/Creatinine Ratio 14.0, Glucose 139 H, Calcium 9.2, Magnesium 2.4, Total Bilirubin 0.70, AST 12 L, ALT 16, Alkaline Phosphatase 60, Total Protein 7.6, Albumin 3.6, Globulin 4.0, Albumin/Globulin Ratio 0.9, TSH 1.89 09/04/22 04:48: APTT 61.8 H Micro: Microbiology 09/03/22 18:45 Nasal Secretion SARS-CoV-2 & FLU Antigen (Rapid) - Final Radiography Diagnostic Testing: Radiology Impression Chest X-Ray 09/03/22 18:00 IMPRESSION: Retrocardiac hiatal hernia. There is no acute cardiopulmonary disease. Electronically Signed: Davion Lopez DO at 18:22 EST Reading Location ID and State: [facility] / [place] Tel [phone], Service support , Chest CTA 09/03/22 18:42 IMPRESSION: 1. Diffuse bilateral pulmonary emboli, as above. 2. No aortic dissection or aneurysm. 3. No acute pulmonary disease. 4. Hiatal hernia. Electronically Signed: Davion Lopez DO at 20:12 EST Reading Location ID and State: [facility] / [place] Tel [phone], Service support , ADDENDUM: 09/03/222022 IMPRESSION: 1. Diffuse bilateral pulmonary emboli, as above. 2. No aortic dissection or aneurysm. 3. No acute pulmonary disease. 4. Hiatal hernia. N.B. : The above Results were Read Back by Davion Lopez DO to Franklin Cervantes MD, and understanding confirmed on 09/03/2022 20:17:00 (ET). Electronically Signed: Davion Lopez DO at 20:12 EST Reading Location ID and State: [facility] / [place] Tel [phone], Service support , Physical Exam Const alert and no apparent distress Constitutional Narrative: Conversational dyspnea Resp normal respiratory effort, no retractions, no use of accessory muscles and clearto auscultation bilaterally Cardio regular rate, regular rhythm, S1 normal heart sound and S2 normal heart sound GI normal to inspection, nondistended, normoactive bowel sounds, soft to palpation,non-tender and non-distended Psych affect normal Assessment & Plan Assessment/Plan (1) Pulmonary emboli: PLAN: #Bilateral pulmonary emboli -Worsened dyspnea primarily on exertion over the past week with the past 2 days with no significant change -Denies personal or family history of blood clots, no recent travel or prolongedimmobility, reports he did have a colonoscopy with no abnormalities and was toldhe no longer needed screening, no personal history of cancer -D-dimer 17 in ED and CTA demonstrated the bilateral pulmonary emboli and he also was hypoxic on room air -Hypercoagulable work-up obtained with instructions to draw labs prior to heparin initiation if it would not significantly delay beginning this -Discussed anticoagulation options with ED provider and given that his oxygen saturation was 90s on room air and now is requiring 3 L to maintain 90 to 92% wewill start heparin drip in the event he develops any worsened respiratory compromise or hypotension that would require tenecteplase -If stable in the a.m. can likely switch to Eliquis or other DOAC -Likely will need to ambulate to qualify for O2 prior to discharge -We will obtain echo to assess for any heart strain or abnormalities -Also given increased swelling in extremity will obtain duplex to assess for further clot burden if any -Rapid COVID-negative (2) Hypoxemia: PLAN: #Hypoxia secondary to #1 -O2, incentive spirometry -Heparin drip as above -PT consulted -May need ambulated to assess for O2 needs prior to discharge -Low suspicion for infectious process so we will hold off on antibiotics at thistime -BNP only 24 and no edema appreciated on imaging (3) NSTEMI, initial episode of care: PLAN: #NSTEMI likely type II -EKG with first-degree block but otherwise no significant abnormalities -First troponin minimally elevated and has no chest pain, second troponin pending -Obtaining echo, will hold off on consulting cardiology at this time pending results and clinical progress -CTA did note some moderate coronary artery calcifications, may need to consideroutpatient work-up once patient clinically stable -No chest pain at this time an alternate explanation for his shortness of breath Troponins went from 105 down to 47 (4) DVT (deep venous thrombosis): PLAN: Prelim duplex was patient had bilateral DVTs. As patient can be anticoagulated. No indication for IVC filter. PLAN: Plan Chronic conditions: * CKD stage III unclear subtype-Appears close to baseline however did receive contrast with CTA, will give some gentle hydration and check BMP in a.m.-We will hold lisinopril * FREDI #DVT ppx: Not indicated as on hep drip Charges/Coding Visit Charges Inpatient E&M: 02343 Subs Hosp L3 09/04/22 1225 <Electronically signed by Gladis Sue DO> Cosigner Signature (if applicable): CC: ~ Signed [facility] Work Phone: 1(773) 822-994202-21-[address] Cervantes [facility] September 03, 2022 10:45pm Note Date/Time September 03, 2022 5:23pm [facility] Medical Records Department [address] [place] [address] Emergency Department Summary 09/03/22 MR#: [id number] Acct: [id number] Name: CINDY COSTA Rep #:[id number] : 1940 82 From: Franklin Cervantes DO PCP: Dr. Gladis Nava MD Status:ADM [place] Location: [address] History of Present Illness Chief Complaint: Shortness of Breath Detail of Chief Complaint: Shortness of breath and weakness Informant: patient and spouse/S.O. Narrative Narrative: Patient presents the emergency department complaint of shortness of breath and generalized weakness. Patient states that the breathing recently became more labored yesterday and people noticed it in [employer]. Patient states he is actually been feeling somewhat short of breath for about a week. About 2 or 3 weeks ago he had bronchitis and sinusitis. Patient denies any chest pain. He does describe exertional dyspnea. Sitting up he feels better than lying flat. Patient denies any fevers. He denies recent travel or surgery. No history of PE or DVT. No history of CHF. Does have history of asthma. [facility] Medical History (Updated 09/03/22 @ 20:[address] Franklin Cervantes DO) Allergic rhinitis ankle surgery BPH (benign prostatic hyperplasia) Bronchitis Cough Cough Daytime hypersomnia DDD (degenerative disc disease) GERD (gastroesophageal reflux disease) Hyperlipidemia Hypertension Hypogonadism Iron deficiency anemia FREDI (obstructive sleep apnea) Restrictive lung disease Shortness of breath on exertion Syncope and collapse Wheezing Home Medications lisinopril 10 mg tablet 20 mg PO QHS BP 02/27/18 [History Last Taken Unknown] ferrous sulfate 325 mg (65 mg iron) tablet 325 mg PO DAILY #90 tabs 03/04/18 [Rx Last Taken Unknown] donepezil 5 mg tablet 5 mg PO QHS . 09/03/22 [History Last Taken 09/02/22] fluticasone 500 mcg-salmeterol 50 mcg/dose blistr powdr for inhalation (Wixela Inhub) 1 inh inhalation BID #60 ea 09/03/22 [Rx Last Taken Unknown] Allergy/AdvReac Type Severity Reaction Status Date / Time azithromycin Allergy unknown Verified 09/03/22 16:48 ciprofloxacin [From Cipro] Allergy confusion Verified 09/03/22 16:48 Environmental Allergies: Allergy NEEDS Verified 09/03/22 16:48 Uncoded FOLLOW-UP Family History Brother Heart disease Surgical History H/O bilateral inguinal hernia repair H/O sinus surgery History of prostate surgery Social History Smoking Status: Never smoker second hand exposure: No alcohol intake: never substance use type: does not use ROS ROS ED Review of Systems ROS Unobtainable: other Constitutional Constitutional ED: Reports lethargy; Denies chills, fever(s), sweats or weight loss Eyes Eyes: Denies blurry vision, change in vision or diplopia ENT ENT ED: Denies rhinorrhea or sore throat Cardiovascular Cardiovascular: Denies chest pain, orthopnea or racing heartbeat Respiratory/Chest Respiratory/Chest: Reports dyspnea and dyspnea on exertion; Denies cough, orthopnea or sputum Gastrointestinal Gastrointestinal: Denies abdominal pain, diarrhea, nausea or vomiting Genitourinary Genitourinary ED: Denies dysuria, hematuria or urinary frequency Musculoskeletal Musculoskeletal: Denies arthralgias, back pain, myalgias or neck pain Integumentary Denies abscess, Abrasions or rash Neurologic Neurologic: Reports other Details: Generalized weakness ; Denies headache(s) or weakness Psychiatric Psychiatric: Denies anxiety, depression or suicidal thoughts Endocrine Endocrinology: Denies polydipsia, polyphagia or polyuria Hematologic/Lymphatic Hematologic/Lymphatic: Denies easy bleeding, easy bruising or lymphadenopathy Allergic/Immunologic Allergic/Immunologic ED: Denies mouth swelling, tongue swelling or urticaria EXAM Physical Exam Const Vital Signs: 09/03/22 16:48 09/03/22 17:47 09/03/22 17:48 Temperature 97 F L Temperature Source Temporal Pulse Rate 85 Respiratory Rate 14 Respiratory Effort Short of Breath Respiratory Pattern Tachypnea Blood Pressure 163/72 H Blood Pressure Mean 102 Pulse Ox 90 93 Oxygen Delivery Method Room Air Room Air Nasal Cannula Oxygen Flow Rate (L/min) 2 09/03/22 17:49 09/03/22 18:37 Temperature Temperature Source Pulse Rate 84 84 Respiratory Rate 24 H 24 H Respiratory Effort Respiratory Pattern Tachypnea Blood Pressure 149/74 H Blood Pressure Mean 99 Pulse Ox 92 Oxygen Delivery Method Nasal Cannula Oxygen Flow Rate (L/min) 3 Positive well nourished and well developed General Appearance ED: well developed and NAD HEENT Reports TM's clear and moist mucous membranes normocephalic and atraumatic; Negative for trauma or tenderness Tympanic Membrane ED: Yes TM's clear Eyes PERRL and EOMs intact bilaterally General Eye ED: Negative for pale conjunctiva or scleral icterus Neck no lymphadenopathy, supple and no JVD General: Negative for tenderness Chest Wall inspection of chest normal and palpation of chest normal Chest: Negative for tenderness Resp normal respiratory effort and clear to auscultation bilaterally Resp Narrative: Occasional faint expiratory wheeze noted. No significant rales. Mild tachypnea. No accessory muscle use or retractions. No conversational dyspnea. Effort and Inspection: Negative for respiratory distress or pain with movement Auscultation: Negative for rhonchi, wheezes or diminished lung sounds Cardio regular rate, regular rhythm, S1 normal heart sound, S2 normal heart sound and no murmurs Peripheral Pulses: pulses 2+ throughout GI normal to inspection, nondistended, normoactive bowel sounds, soft to palpation,non-tender, non-distended and no masses Back/Spine no CVA tenderness and no thoracic nor lumbar tenderness Extremity normal to inspection General Extremety ED: Negative for edema General Extremity: Negative for edema Neuro oriented x3, CN's II-XII intact bilaterally, no sensory deficits noted and gait normal Sensorium / Orientation: awake, alert, oriented to person, oriented to place andoriented to time Motor Exam: strength 5/5 throughout and strength abnormal Psych mental status grossly normal Skin no rashes or lesions noted and no wounds MDM MDM MDM Narrative Medical decision making narrative: IV line established on arrival. Patient placed on a monitor technician. EKG obtained showed sinus rhythm with a first-degree AV block otherwise no acute ST segment changes. CBC with differential was unremarkable. Chemistries unremarkable. Troponin was elevated at 105. D-dimer was 17.13. BNP was normalat 244. Patient I suspect has a slightly elevated troponin likely related to heart strain due to pulmonary emboli noted on CTA of the chest. Patient did drop his O2 sat into the mid 80s and was started on nasal cannula O2. Patient otherwise hemodynamically stable. Case discussed with hospitalist to evaluate patient for admission. I was asked to start patient on a heparin drip. Patientwill be admitted to hospital service Dr. Manuel. Lab Data Attestation: I reviewed the patient's lab results. Labs: Laboratory Results - last 24 hr 09/03/22 09/03/22 09/03/22 17:51 17:51 17:51 WBC 7.8 RBC 5.10 Hgb 15.2 Hct 47.1 MCV 92.4 MCH 29.8 MCHC 32.3 RDW Std Deviation 45.5 H RDW Coeff of Candy 13.5 Plt Count 245 MPV 8.9 Immature Gran % (Auto) 0.300 Neut % (Auto) 75.5 H Lymph % (Auto) 9.9 L Runnels % (Auto) 11.6 H Eos % (Auto) 2.3 Baso % (Auto) 0.4 Absolute Neuts (auto) 5.9 Absolute Lymphs (auto) 0.77 L Nucleated RBC % 0 D-Dimer Quant (PE/DVT) 17.13 H* Sodium 139 Potassium 4.4 Chloride 106 Carbon Dioxide 26.0 Anion Gap 7 BUN 20 H Creatinine 1.32 H Estim Creat Clear Calc 50.68 Est GFR (MDRD) Af Amer 67 Est GFR (MDRD) Non-Af 55 L BUN/Creatinine Ratio 15.2 Glucose 123 H Calcium 9.8 Troponin I High Sens 105 H B-Natriuretic Peptide 09/03/22 17:51 WBC RBC Hgb Hct MCV MCH MCHC RDW Std Deviation RDW Coeff of Candy Plt Count MPV Immature Gran % (Auto) Neut % (Auto) Lymph % (Auto) Runnels % (Auto) Eos % (Auto) Baso % (Auto) Absolute Neuts (auto) Absolute Lymphs (auto) Nucleated RBC % D-Dimer Quant (PE/DVT) Sodium Potassium Chloride Carbon Dioxide Anion Gap BUN Creatinine Estim Creat Clear Calc Est GFR (MDRD) Af Amer Est GFR (MDRD) Non-Af BUN/Creatinine Ratio Glucose Calcium Troponin I High Sens B-Natriuretic Peptide 24.4 Radiography Diagnostic Testing: Clinical Impression(s) from Imaging Studies Chest X-Ray 09/03/22 18:00 IMPRESSION: Retrocardiac hiatal hernia. There is no acute cardiopulmonary disease. Electronically Signed: Davion Lopez DO at 18:22 EST Reading Location ID and State: [address] [place] [address] Tel [phone], Service support , Chest CTA 09/03/22 18:42 IMPRESSION: 1. Diffuse bilateral pulmonary emboli, as above. 2. No aortic dissection or aneurysm. 3. No acute pulmonary disease. 4. Hiatal hernia. Electronically Signed: Davion Lopez DO at 20:12 EST Reading Location ID and State: [address] [place] [address] Tel [phone], Service support , ADDENDUM: 09/03/222022 IMPRESSION: 1. Diffuse bilateral pulmonary emboli, as above. 2. No aortic dissection or aneurysm. 3. No acute pulmonary disease. 4. Hiatal hernia. N.B. : The above Results were Read Back by Davion Lopez DO to Franklin Cervantes MD, and understanding confirmed on 09/03/2022 20:17:00 (ET). Electronically Signed: Davion Lopez DO at 20:12 EST Reading Location ID and State: [address] [place] [address] Tel [phone], Service support , 1 view chest x-ray obtained interpreted by myself as no acute disease process and no evidence of infiltrate or pneumothorax. Radiology did note a retrocardiac hiatal hernia. EKG Initial EKG: Attestation: I personally reviewed and interpreted this EKG as follows: Comments: Sinus rhythm with a ventricular rate of 83 bpm with a first-degree AV block Discharge Plan Triage Chief Complaint: Shortness of Breath ED Provider: Franklin Cervantes Dx/Rx/DC Orders Clinical Impression: Pulmonary emboli, Exertional dyspnea, Hypoxemia, Elevated troponin Prescriptions: No Action lisinopril 10 mg tablet 20 mg PO QHS ascorbic acid (vitamin C) 1,000 mg tablet 1 g PO DAILY aspirin 81 mg tablet,delayed release (DR/EC) 81 mg PO QDAY Label Comments: WAS TOLD TO STOP 3 DAYS BEFORE SCOPE loratadine 10 mg capsule 10 mg PO QDAY Qty: 30 6RF ferrous sulfate 325 MG tablet 325 mg PO DAILY Qty: 90 0RF albuterol sulfate 90 mcg/actuation HFA aerosol inhaler 2 puff INHALATION Q4H PRN (Reason: Asthma) Qty: 18 3RF azelastine 0.15 % (205.5 mcg) spray,non-aerosol 1 spray INTRANASAL BID Qty: 30 11RF Rx Instructions: administer into each nostril fluticasone propionate 50 mcg/actuation spray,suspension 1 spray INTRANASAL BID Qty: 16 3RF fluticasone propion-salmeterol [Wixela Inhub] 500-50 mcg/dose blister with device 1 inh INHALATION BID Qty: 60 11RF Primary Care Provider: Gladis Nava Referrals: Gladis Nava MD [Primary Care Provider] - Disposition Disposition: Acute Care Hospital [facility] What to do if you have Problems For any increased pain, shortness of breath, bleeding, nausea or vomiting, chestpain, or any unexpected problems, contact your Primary Care Provider. Call [facility] ([phone]) or report to the closest Emergency Room. Call 911 if necessary. 09/03/222244 <Electronically signed by Franklin Cervantes DO> Cosigner Signature (if applicable): CC: Dr. Gladis Nava MD ~ Signed [facility] Work Phone: 1(253) 659-881302-20-2023 History and physical note Author Dr. Manuel [facility] September 03, 2022 9:23pm Note Date/Time September 03, 2022 9:23pm [facility] Medical Records Department [address] [place] [address] H&P Exam - Hospitalist 09/03/222102 MR#: [id number] Acct: [id number] Name: CINDY COSTA Rep #:[id number] : 1940 82 From: Noemi Manuel MD PCP: Dr. Gladis Nava MD Status:ADM MAMTA Location: [place] [address] HPI - General General Date of Admission: 09/03/22 Date of Service: 09/03/22 Chief Complaint: Dyspnea on exertion HPI Narrative CINDY COSTA, is a 82 M with a history of FREDI on CPAP, GERD, hypertension who presented to [facility] 09/03/2022 with worsening shortness of breath on exertion for 1 week with significant increase in the last 2 to 3 days and generalized weakness when he is trying to ambulate distances. Due to the progressive nature he was brought to the ED. In ED O2 was initially 90% on roomair, chest x- ray showed retrocardiac hiatal hernia but no acute cardiopulmonary disease. He was given a DuoNeb and D-dimer was 17.13 so CTA obtained which demonstrated diffuse bilateral pulmonary emboli. In the ED he also became hypoxic when moving around into the 80s and presently requiring 3 L to maintain sats between 90 to 92%. Hospitalist consulted for admission. Evaluated patientwith at bedside. They endorse that he was in his usual health until this past week when he has had some increased dyspnea on exertion and over the past 2days it is significantly worsened, slight dry cough with nothing productive. Norecent travel no prolonged immobility, does have some slight swelling in right lower extremity but this is reportedly chronic. Denies fever chills. has shingles but no other sick contact and he reports he had a shingles vaccine and has no rashes or symptoms concerning for shingles. Denies any chest pain. Did have COVID-vaccine and booster but also did have COVID a year ago but no recent exposure. Has some chronic problems with urination that been unchanged, no other complaints voiced. [facility], [facility] Medical History (Updated 09/03/22 @ 20:[address] Franklin Cervantes, ) Allergic rhinitis ankle surgery BPH (benign prostatic hyperplasia) Bronchitis Cough Cough Daytime hypersomnia DDD (degenerative disc disease) GERD (gastroesophageal reflux disease) Hyperlipidemia Hypertension Hypogonadism Iron deficiency anemia FREDI (obstructive sleep apnea) Restrictive lung disease Shortness of breath on exertion Syncope and collapse Wheezing Home Medications lisinopril 10 mg tablet 20 mg PO QHS BP 02/27/18 [History Last Taken 09/02/22] ferrous sulfate 325 mg (65 mg iron) tablet 325 mg PO DAILY #90 tabs 03/04/18 [Rx Last Taken Unknown] donepezil 5 mg tablet 5 mg PO QHS . 09/03/22 [History Last Taken 09/02/22] fluticasone 500 mcg-salmeterol 50 mcg/dose blistr powdr for inhalation (Wixela Inhub) 1 inh inhalation BID #60 ea 09/03/22 [Rx Last Taken 09/03/22] Allergy/AdvReac Type Severity Reaction Status Date / Time azithromycin Allergy unknown Verified 09/03/22 16:48 ciprofloxacin [From Cipro] Allergy confusion Verified 09/03/22 16:48 Environmental Allergies: Allergy NEEDS Verified 09/03/22 16:48 Uncoded FOLLOW-UP Family History Brother Heart disease Surgical History H/O bilateral inguinal hernia repair H/O sinus surgery History of prostate surgery Social History Smoking Status: Never smoker second hand exposure: No alcohol intake: never substance use type: does not use ROS ROS Narrative General: Denies fever or chills HENT: Denies headache, has some nasal drainage, denies sore throat EYES: Denies changes in vision Resp: Slight dry cough, worsening shortness of breath primarily with exertion Cardiac: Denies chest pain GI: Denies abdominal pain, denies changes in bowel, denies nausea, denies vomiting : Denies changes in urination but does have some chronic problems with holdinghis urine Extremity: Some mild chronic right ankle swelling compared to left MSK: Generalized weakness when ambulating Neuro: Denies any numbness, denies tingling Heme: Denies any bleeding or bruising Skin: Denies rashes Psychiatric: No complaints voiced Vital Signs Vital Signs Vital Signs: 09/03/22 16:48 09/03/22 17:47 09/03/22 17:48 Temperature 97 F L Temperature Source Temporal Pulse Rate 85 Respiratory Rate 14 Respiratory Effort Short of Breath Respiratory Pattern Tachypnea Blood Pressure 163/72 H Blood Pressure Mean 102 Pulse Ox 90 93 Oxygen Delivery Method Room Air Room Air Nasal Cannula Oxygen Flow Rate (L/min) 2 09/03/22 17:49 09/03/22 18:37 Temperature Temperature Source Pulse Rate 84 84 Respiratory Rate 24 H 24 H Respiratory Effort Respiratory Pattern Tachypnea Blood Pressure 149/74 H Blood Pressure Mean 99 Pulse Ox 92 Oxygen Delivery Method Nasal Cannula Oxygen Flow Rate (L/min) 3 Weight Weight: 115 kg Body Mass Index (BMI) 31.6 Physical Exam Narrative General: Alert, oriented, no apparent distress HEENT: Atraumatic, normocephalic Eyes: Anicteric, normal conjunctiva, extraocular movements grossly intact Neck: Supple Respiratory: Clear to auscultation bilaterally, initially comfortable but with conversation slight increased work of breathing, slight tachypnea Cardiovascular: Regular rate and rhythm GI: Soft, nontender, nondistended Extremities: Trace pitting edema in right ankle compared to left Musculoskeletal: Moving all extremities Neuro: No overt focal neurological deficits Skin: No rashes appreciated Psych: Cooperative Results Lab / Micro Data Result Diagrams: 09/03/22 17:51 09/03/22 17:51 Labs: Laboratory Results - last 24 hr 09/03/22 17:51: WBC 7.8, RBC 5.10, Hgb 15.2, Hct 47.1, MCV 92.4, MCH 29.8, MCHC 32.3, RDW Std Deviation 45.5 H, RDW Coeff of Candy 13.5, Plt Count 245, MPV 8.9, Immature Gran % (Auto) 0.300, Neut % (Auto) 75.5 H, Lymph % (Auto) 9.9 L, Runnels %(Auto) 11.6 H, Eos % (Auto) 2.3, Baso % (Auto) 0.4, Absolute Neuts (auto) 5.9, Absolute Lymphs (auto) 0.77 L, Nucleated RBC % 0 09/03/22 17:51: D-Dimer Quant (PE/DVT) 17.13 H* 09/03/22 17:51: Sodium 139, Potassium 4.4, Chloride 106, Carbon Dioxide 26.0, Anion Gap 7, BUN 20 H, Creatinine 1.32 H, Estim Creat Clear Calc 50.68, Est GFR (MDRD) Af Amer 67, Est GFR (MDRD) Non-Af 55 L, BUN/Creatinine Ratio 15.2, Glucose 123 H, Calcium 9.8, Troponin I High Sens 105 H 09/03/22 17:51: B-Natriuretic Peptide 24.4 09/03/22 17:51: PT 13.9, INR 1.1, APTT 29.8 Micro: Microbiology 09/03/22 18:45 Nasal Secretion SARS-CoV-2 & FLU Antigen (Rapid) - Final Radiology Impression Chest X-Ray 09/03/22 18:00 IMPRESSION: Retrocardiac hiatal hernia. There is no acute cardiopulmonary disease. Electronically Signed: Davion Lopez DO at 18:22 EST Reading Location ID and State: [facility] / [place] Tel [phone], Service support , Chest CTA 09/03/22 18:42 IMPRESSION: 1. Diffuse bilateral pulmonary emboli, as above. 2. No aortic dissection or aneurysm. 3. No acute pulmonary disease. 4. Hiatal hernia. Electronically Signed: Davion Lopez DO at 20:12 EST Reading Location ID and State: [facility] / [place] Tel [phone], Service support , ADDENDUM: 09/03/222022 IMPRESSION: 1. Diffuse bilateral pulmonary emboli, as above. 2. No aortic dissection or aneurysm. 3. No acute pulmonary disease. 4. Hiatal hernia. N.B. : The above Results were Read Back by Davion Lopez DO to Franklin Cervantes MD, and understanding confirmed on 09/03/2022 20:17:00 (ET). Electronically Signed: Davion Lopez DO at 20:12 EST Reading Location ID and State: [facility] / [place] Tel [phone], Service support , Assessment & Plan Assessment/Plan (1) Pulmonary emboli: (2) Hypoxemia: (3) Elevated troponin: (4) FREDI (obstructive sleep apnea): PLAN: Plan #Bilateral pulmonary emboli -Worsened dyspnea primarily on exertion over the past week with the past 2 days with no significant change -Denies personal or family history of blood clots, no recent travel or prolongedimmobility, reports he did have a colonoscopy with no abnormalities and was toldhe no longer needed screening, no personal history of cancer -D-dimer 17 in ED and CTA demonstrated the bilateral pulmonary emboli and he also was hypoxic on room air -Hypercoagulable work-up obtained with instructions to draw labs prior to heparin initiation if it would not significantly delay beginning this -Discussed anticoagulation options with ED provider and given that his oxygen saturation was 90s on room air and now is requiring 3 L to maintain 90 to 92% wewill start heparin drip in the event he develops any worsened respiratory compromise or hypotension that would require tenecteplase -If stable in the a.m. can likely switch to Eliquis or other DOAC -Likely will need to ambulate to qualify for O2 prior to discharge -We will obtain echo to assess for any heart strain or abnormalities -Also given increased swelling in extremity will obtain duplex to assess for further clot burden if any -Rapid COVID-negative, will obtain PCR -Did have some scattered nonspecific subcentimeter mediastinal lymphadenopathy with mild right hilar lymphadenopathy on CTA, can consider discussing with pulmonology if this requires further work-up or monitoring #Hypoxia secondary to #1 -O2, incentive spirometry -Heparin drip as above -PT consulted -May need ambulated to assess for O2 needs prior to discharge -Low suspicion for infectious process so we will hold off on antibiotics at thistime -BNP only 24 and no edema appreciated on imaging #NSTEMI likely type II -EKG with first-degree block but otherwise no significant abnormalities -First troponin minimally elevated and has no chest pain, second troponin pending -Obtaining echo, will hold off on consulting cardiology at this time pending results and clinical progress -CTA did note some moderate coronary artery calcifications, may need to consideroutpatient work-up once patient clinically stable -No chest pain at this time an alternate explanation for his shortness of breath #CKD stage III unclear subtype -Appears close to baseline however did receive contrast with CTA, will give somegentle hydration and check BMP in a.m. -We will hold lisinopril #DVT ppx: On hep drip Noemi Manuel MD Time spent in the patient's overall evaluation,decision-making process, review of diagnostic data, adjustment of management, discussion with other providers, nursing nursing and ancillary staff involved in patient's care documentation, 60minutes Charges/Coding Visit Charges Inpatient E&M: 01470 Init Hosp L2 09/03/222122 <Electronically signed by Noemi Manuel MD> Cosigner Signature (if applicable): CC: Dr. Gladis Nava MD; Dr. Noemi Manuel MD~ Signed [facility] Work Phone: Discharge summary Author Dr. Sue [facility] September 06, 2022 11:37am Note Date/Time September 06, 2022 11:34am [facility] Medical Records Department [address] [place] [address] Instructions for Home/Discharge Instructions 09/06/22 1133 MR#: [id number] Acct: [id number] Name: CINDY COSTA Rep #:[id number] : 1940 82 From: Gladis Sue DO PCP: Dr. Gladis Nava MD Status:ADM IN Discharge Instructions Diet Discharge Diet: No restrictions Activity Discharge Activity: Return to Normal Activity (ease back into normal routine. ) Dressing / Incision Call your doctor if you observe: Shortness of breath Follow Up Care Test Results: Test results from this visit will be discussed in further detail at your follow- up appointment, if applicable. Discharge Plan Admission Admit Date/Time: 09/04/22 10:46 Primary Reason for Your Visit: Pulmonary embolism Attending Provider: Gladis Sue Primary Care Provider: Gladis Nava Consulting Providers: Noemi Manuel Discharge Orders/Prescriptions Prescriptions: New Eliquis 5 mg Tablet 10 mg PO BID Qty: 60 0RF Rx Instructions: 2 tabs twice daily for 7 days, then 1 tab twice daily. Continued lisinopril 10 mg tablet 20 mg PO QHS ferrous sulfate 325 MG tablet 325 mg PO DAILY Qty: 90 0RF donepezil 5 mg tablet 5 mg PO QHS Label Comments: TAKE 1 TABLET BY MOUTH ONCE DAILY fluticasone propion-salmeterol [Wixela Inhub] 500-50 mcg/dose blister with device 1 inh INHALATION BID Qty: 60 11RF Referrals / Follow Up: Gladis Nava MD [Primary Care Provider] - Within 2 Weeks Disposition Disposition (needs filled in before D/C Order can be placed): Home, Self Care 09/06/22 1137<Electronically signed by Gladis Sue DO>Gladis Sue DO CC: Dr. Gladis Nava MD; Dr. Noemi Manuel MD ~ Signed [facility] Work Phone: Discharge summary Author Dr. Sue [facility] September 06, 2022 11:38am Note Date/Time September 06, 2022 11:38am [facility] Medical Records Department [address] [place] [address] Discharge Summary 09/06/22 1137 MR#: [id number] Acct: [id number] Name: CINDY COSTA Rep #:[id number] : 1940 82 From: Gladis Sue DO PCP: Dr. Gladis Nava MD Status:ADM IN Location: [place] [id number]- Providers Date of Admission: 09/04/22 Primary Care Physician: Dr. Gladis Nava MD Reason For Visit: HYPOXIA, BILATERAL PE Diagnosis Discharge Diagnosis (1) Pulmonary emboli: Status: Acute Code(s): I26.99 - Other pulmonary embolism without acute cor pulmonale Plan: Bilateral pulmonary emboli -Discussed anticoagulation options with ED provider and given that his oxygen saturation was 90s on room air and now is requiring 3 L to maintain 90 to 92% wewill start heparin drip in the event he develops any worsened respiratory compromise or hypotension that would require tenecteplase -If stable in the a.m. can likely switch to Eliquis or other DOAC -Rapid COVID-negative Echo showed EF of 70%. Right ventricular systolic pressure of 87 mmHg severe pulmonary hypertension. (2) Acute respiratory failure with hypoxia: Status: Acute Code(s): J96.01 - Acute respiratory failure with hypoxia Plan: Acute hypoxic respiratory failure secondary to PE and pulmonary hypertension -O2, incentive spirometry -Heparin drip as above -PT consulted -May need ambulated to assess for O2 needs prior to discharge -Low suspicion for infectious process so we will hold off on antibiotics at thistime -BNP only 24 and no edema appreciated on imaging Ambulatory pulse ox, patient did well and did not require oxygen upon discharge. (3) NSTEMI, initial episode of care: Status: Acute Code(s): I21.4 - Non-ST elevation (NSTEMI) myocardial infarction Plan: #NSTEMI likely type II -EKG with first-degree block but otherwise no significant abnormalities -First troponin minimally elevated and has no chest pain, second troponin pending -Obtaining echo, will hold off on consulting cardiology at this time pending results and clinical progress -CTA did note some moderate coronary artery calcifications, may need to consideroutpatient work-up once patient clinically stable -No chest pain at this time an alternate explanation for his shortness of breath Troponins went from 105 down to 47 (4) DVT (deep venous thrombosis): Status: Acute Code(s): I82.409 - Acute embolism and thrombosis of unspecified deep veins of unspecifiedlower extremity Plan: Duplex shows acute DVT in the right soleus and in the left posterior tibial veins. As patient can be anticoagulated. No indication for IVC filter. (5) Pulmonary hypertension: Status: Acute Code(s): I27.20 - Pulmonary hypertension, unspecified Plan: Group 4 Discussed with patient, his daughter is a nurse and the . This pulm hypertension this is graded as severe and is likely group 4 due to the PE. Patient does have known sleep apnea but has been compliant with using CPAP. Plan Chronic conditions: * CKD stage III unclear subtype-Appears close to baseline however did receive contrast with CTA, will give some gentle hydration and check BMP in a.m.-We will hold lisinopril * FREDI Medications at Discharge Home Medications lisinopril 10 mg tablet 20 mg PO QHS BP 02/27/18 ferrous sulfate 325 mg (65 mg iron) tablet 325 mg PO DAILY #90 tabs 03/04/18 donepezil 5 mg tablet 5 mg PO QHS . 09/03/22 fluticasone 500 mcg-salmeterol 50 mcg/dose blistr powdr for inhalation (Wixela Inhub) 1 inh inhalation BID #60 ea 09/03/22 apixaban 5 mg tablet (Eliquis) 10 mg PO BID #60 tabs 09/06/22 Hospital Course Operations None Procedures 2-D Echocardiogram Summary of Care Provided Minutes Spent on Discharge: 32 Weight / BMI Weight Weight: 113 kg Body Mass Index (BMI) 31.1 ABG / Lab / Microbiology Data Result Diagrams: 09/06/22 06:17 09/06/22 06:17 Laboratory: Laboratory Results - last 24 hr 09/05/22 11:48: APTT 55.8 H 09/06/22 06:17: APTT 58.4 H 09/06/22 06:17: WBC 6.0, RBC 4.61, Hgb 14.0, Hct 42.5, MCV 92.2, MCH 30.4, MCHC 32.9, RDW Std Deviation 45.6 H, RDW Coeff of Candy 13.6, Plt Count 222, MPV 8.5, Immature Gran % (Auto) 0.500, Neut % (Auto) 70.2 H, Lymph % (Auto) 13.2 L, Runnels % (Auto) 10.0, Eos % (Auto) 5.3 H, Baso % (Auto) 0.8, Absolute Neuts (auto) 4.2,Absolute Lymphs (auto) 0.79 L, Nucleated RBC % 0 09/06/22 06:17: Sodium 137, Potassium 4.1, Chloride 106, Carbon Dioxide 23.0, Anion Gap 8, BUN 24 H, Creatinine 1.25, Estim Creat Clear Calc 53.52, Est GFR (MDRD) Af Amer 71, Est GFR (MDRD) Non-Af 59 L, BUN/Creatinine Ratio 19.2, Glucose 137 H, Calcium 9.0 Microbiology: Microbiology 09/03/22 17:51 Blood Culture (Wb) - Anticubital Left Blood Culture - Preliminary No growth in 48 hours. 09/03/22 18:45 Nasal Secretion SARS-CoV-2 & FLU Antigen (Rapid) - Final D/C Instructions Discharge Diet: No restrictions Call your doctor if you observe: Shortness of breath Meaningful Use Info Meaningful Use Diagnoses (Choose all that apply): None applicable Discharge Plan Admission Admit Date/Time: 09/04/22 10:46 Primary Reason for Your Visit: Pulmonary embolism Attending Provider: Gladis Sue Primary Care Provider: Gladis Nava Consulting Providers: Noemi Manuel Discharge Orders/Prescriptions Prescriptions: New Eliquis 5 mg Tablet 10 mg PO BID Qty: 60 0RF Rx Instructions: 2 tabs twice daily for 7 days, then 1 tab twice daily. Continued lisinopril 10 mg tablet 20 mg PO QHS ferrous sulfate 325 MG tablet 325 mg PO DAILY Qty: 90 0RF donepezil 5 mg tablet 5 mg PO QHS Label Comments: TAKE 1 TABLET BY MOUTH ONCE DAILY fluticasone propion-salmeterol [Wixela Inhub] 500-50 mcg/dose blister with device 1 inh INHALATION BID Qty: 60 11RF Referrals / Follow Up: Gladis Nava MD [Primary Care Provider] - Within 2 Weeks Disposition Disposition (needs filled in before D/C Order can be placed): Home, Self Care Charges/Coding Visit Charges Inpatient E&M: 20424 Disch Hosp >30min 09/06/22 1138 <Electronically signed by Gladis Sue DO> Cosigner Signature (if applicable): CC: Dr. Gladis Sue DO; Dr. Gladis Nava MD~ Signed [facility] Work Phone: Evaluation noteNo assessment information available [facility] Work Phone: Evaluation note* Diagnosis Onset Date Resolution Status Asthma chronic FREDI (obstructive sleep apnea) chronic Elevated troponin acute Exertional dyspnea acute Hypoxemia acute Pulmonary emboli acute FREDI (obstructive sleep apnea) chronic [facility] Work Phone: Evaluation note* Diagnosis Onset Date Resolution Status Asthma chronic FREDI (obstructive sleep apnea) chronic Acute respiratory failure with hypoxia acute DVT (deep venous thrombosis) acute Elevated troponin acute Exertional dyspnea acute Hypoxemia acute NSTEMI, initial episode of care acute Pulmonary emboli acute Pulmonary hypertension acute FREDI (obstructive sleep apnea) chronic [facility] Work Phone: Evaluation note* Diagnosis Onset Date Resolution Status Acute respiratory failure with hypoxia resolved Elevated troponin resolved Exertional dyspnea resolved Hypoxemia resolved NSTEMI, initial episode of care resolved [facility] Work Phone: Evaluation note* Diagnosis BPH with obstruction/lower urinary tract symptoms- Primary Urinary frequency documented in this encounter [facility] Work Phone: Evaluation note* Diagnosis BPH with obstruction/lower urinary tract symptoms documented in this encounter [facility] Work Phone: Evaluation note* Diagnosis BPH with obstruction/lower urinary tract symptoms- Primary Urinary frequency Need for prophylactic antibiotic Encounter for long-term (current) use of antibiotics documented in this encounter [facility] Work Phone: Evaluation note* Diagnosis BPH with obstruction/lower urinary tract symptoms- Primary Preop testing Unspecified pre-operative examination 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 BPH with obstruction/lower urinary tract symptoms- Primary BPH with obstruction/lower urinary tract symptoms documented in this encounter [facility] Work Phone: History and physical note Author Dr. Manuel [facility] September 03, 2022 9:23pm Note Date/Time September 03, 2022 9:23pm [facility] Medical Records Department [address] [place] [id number] H&P Exam - Hospitalist 09/03/222102 MR#: [id number] Acct: [id number] Name: CINDY COSTA Rep #:[id number] : 1940 82 From: Noemi Manuel MD PCP: Dr. Gladis Nava MD Status:ADM MAMTA Location: [address] 1 HPI - General General Date of Admission: 09/03/22 Date of Service: 09/03/22 Chief Complaint: Dyspnea on exertion HPI Narrative CINDY COSTA, is a 82 M with a history of FREDI on CPAP, GERD, hypertension who presented to [facility] 09/03/2022 with worsening shortness of breath on exertion for 1 week with significant increase in the last 2 to 3 days and generalized weakness when he is trying to ambulate distances. Due to the progressive nature he was brought to the ED. In ED O2 was initially 90% on roomair, chest x- ray showed retrocardiac hiatal hernia but no acute cardiopulmonary disease. He was given a DuoNeb and D-dimer was 17.13 so CTA obtained which demonstrated diffuse bilateral pulmonary emboli. In the ED he also became hypoxic when moving around into the 80s and presently requiring 3 L to maintain sats between 90 to 92%. Hospitalist consulted for admission. Evaluated patientwith at bedside. They endorse that he was in his usual health until this past week when he has had some increased dyspnea on exertion and over the past 2days it is significantly worsened, slight dry cough with nothing productive. Norecent travel no prolonged immobility, does have some slight swelling in right lower extremity but this is reportedly chronic. Denies fever chills. has shingles but no other sick contact and he reports he had a shingles vaccine and has no rashes or symptoms concerning for shingles. Denies any chest pain. Did have COVID-vaccine and booster but also did have COVID a year ago but no recent exposure. Has some chronic problems with urination that been unchanged, no other complaints voiced. [facility], [facility] Medical History (Updated 09/03/22 @ 20:[address] Franklin Cervantes, ) Allergic rhinitis ankle surgery BPH (benign prostatic hyperplasia) Bronchitis Cough Cough Daytime hypersomnia DDD (degenerative disc disease) GERD (gastroesophageal reflux disease) Hyperlipidemia Hypertension Hypogonadism Iron deficiency anemia FREDI (obstructive sleep apnea) Restrictive lung disease Shortness of breath on exertion Syncope and collapse Wheezing Home Medications lisinopril 10 mg tablet 20 mg PO QHS BP 02/27/18 [History Last Taken 09/02/22] ferrous sulfate 325 mg (65 mg iron) tablet 325 mg PO DAILY #90 tabs 03/04/18 [Rx Last Taken Unknown] donepezil 5 mg tablet 5 mg PO QHS . 09/03/22 [History Last Taken 09/02/22] fluticasone 500 mcg-salmeterol 50 mcg/dose blistr powdr for inhalation (Samuelxela Inhub) 1 inh inhalation BID #60 ea 09/03/22 [Rx Last Taken 09/03/22] Allergy/AdvReac Type Severity Reaction Status Date / Time azithromycin Allergy unknown Verified 09/03/22 16:48 ciprofloxacin [From Cipro] Allergy confusion Verified 09/03/22 16:48 Environmental Allergies: Allergy NEEDS Verified 09/03/22 16:48 Uncoded FOLLOW-UP Family History Brother Heart disease Surgical History H/O bilateral inguinal hernia repair H/O sinus surgery History of prostate surgery Social History Smoking Status: Never smoker second hand exposure: No alcohol intake: never substance use type: does not use ROS ROS Narrative General: Denies fever or chills HENT: Denies headache, has some nasal drainage, denies sore throat EYES: Denies changes in vision Resp: Slight dry cough, worsening shortness of breath primarily with exertion Cardiac: Denies chest pain GI: Denies abdominal pain, denies changes in bowel, denies nausea, denies vomiting : Denies changes in urination but does have some chronic problems with holdinghis urine Extremity: Some mild chronic right ankle swelling compared to left MSK: Generalized weakness when ambulating Neuro: Denies any numbness, denies tingling Heme: Denies any bleeding or bruising Skin: Denies rashes Psychiatric: No complaints voiced Vital Signs Vital Signs Vital Signs: 09/03/22 16:48 09/03/22 17:47 09/03/22 17:48 Temperature 97 F L Temperature Source Temporal Pulse Rate 85 Respiratory Rate 14 Respiratory Effort Short of Breath Respiratory Pattern Tachypnea Blood Pressure 163/72 H Blood Pressure Mean 102 Pulse Ox 90 93 Oxygen Delivery Method Room Air Room Air Nasal Cannula Oxygen Flow Rate (L/min) 2 09/03/22 17:49 09/03/22 18:37 Temperature Temperature Source Pulse Rate 84 84 Respiratory Rate 24 H 24 H Respiratory Effort Respiratory Pattern Tachypnea Blood Pressure 149/74 H Blood Pressure Mean 99 Pulse Ox 92 Oxygen Delivery Method Nasal Cannula Oxygen Flow Rate (L/min) 3 Weight Weight: 115 kg Body Mass Index (BMI) 31.6 Physical Exam Narrative General: Alert, oriented, no apparent distress HEENT: Atraumatic, normocephalic Eyes: Anicteric, normal conjunctiva, extraocular movements grossly intact Neck: Supple Respiratory: Clear to auscultation bilaterally, initially comfortable but with conversation slight increased work of breathing, slight tachypnea Cardiovascular: Regular rate and rhythm GI: Soft, nontender, nondistended Extremities: Trace pitting edema in right ankle compared to left Musculoskeletal: Moving all extremities Neuro: No overt focal neurological deficits Skin: No rashes appreciated Psych: Cooperative Results Lab / Micro Data Result Diagrams: 09/03/22 17:51 09/03/22 17:51 Labs: Laboratory Results - last 24 hr 09/03/22 17:51: WBC 7.8, RBC 5.10, Hgb 15.2, Hct 47.1, MCV 92.4, MCH 29.8, MCHC 32.3, RDW Std Deviation 45.5 H, RDW Coeff of Candy 13.5, Plt Count 245, MPV 8.9, Immature Gran % (Auto) 0.300, Neut % (Auto) 75.5 H, Lymph % (Auto) 9.9 L, Runnels %(Auto) 11.6 H, Eos % (Auto) 2.3, Baso % (Auto) 0.4, Absolute Neuts (auto) 5.9, Absolute Lymphs (auto) 0.77 L, Nucleated RBC % 0 09/03/22 17:51: D-Dimer Quant (PE/DVT) 17.13 H* 09/03/22 17:51: Sodium 139, Potassium 4.4, Chloride 106, Carbon Dioxide 26.0, Anion Gap 7, BUN 20 H, Creatinine 1.32 H, Estim Creat Clear Calc 50.68, Est GFR (MDRD) Af Amer 67, Est GFR (MDRD) Non-Af 55 L, BUN/Creatinine Ratio 15.2, Glucose 123 H, Calcium 9.8, Troponin I High Sens 105 H 09/03/22 17:51: B-Natriuretic Peptide 24.4 09/03/22 17:51: PT 13.9, INR 1.1, APTT 29.8 Micro: Microbiology 09/03/22 18:45 Nasal Secretion SARS-CoV-2 & FLU Antigen (Rapid) - Final Radiology Impression Chest X-Ray 09/03/22 18:00 IMPRESSION: Retrocardiac hiatal hernia. There is no acute cardiopulmonary disease. Electronically Signed: Davion Lopez DO at 18:22 EST Reading Location ID and State: [facility] / [place] Tel [phone], Service support , Chest CTA 09/03/22 18:42 IMPRESSION: 1. Diffuse bilateral pulmonary emboli, as above. 2. No aortic dissection or aneurysm. 3. No acute pulmonary disease. 4. Hiatal hernia. Electronically Signed: Davion Lopez DO at 20:12 EST Reading [phone], Service support , ADDENDUM: 09/03/222022 IMPRESSION: 1. Diffuse bilateral pulmonary emboli, as above. 2. No aortic dissection or aneurysm. 3. No acute pulmonary disease. 4. Hiatal hernia. N.B. : The above Results were Read Back by Davion Lopez DO to Franklin Cervantes MD, and understanding confirmed on 09/03/2022 20:17:00 (ET). Electronically Signed: Davion Lopez DO at 20:12 EST Reading Location ID and State: [place] / [place] Tel [phone], Service support , Assessment & Plan Assessment/Plan (1) Pulmonary emboli: (2) Hypoxemia: (3) Elevated troponin: (4) FREDI (obstructive sleep apnea): PLAN: Plan #Bilateral pulmonary emboli -Worsened dyspnea primarily on exertion over the past week with the past 2 days with no significant change -Denies personal or family history of blood clots, no recent travel or prolongedimmobility, reports he did have a colonoscopy with no abnormalities and was toldhe no longer needed screening, no personal history of cancer -D-dimer 17 in ED and CTA demonstrated the bilateral pulmonary emboli and he also was hypoxic on room air -Hypercoagulable work-up obtained with instructions to draw labs prior to heparin initiation if it would not significantly delay beginning this -Discussed anticoagulation options with ED provider and given that his oxygen saturation was 90s on room air and now is requiring 3 L to maintain 90 to 92% wewill start heparin drip in the event he develops any worsened respiratory compromise or hypotension that would require tenecteplase -If stable in the a.m. can likely switch to Eliquis or other DOAC -Likely will need to ambulate to qualify for O2 prior to discharge -We will obtain echo to assess for any heart strain or abnormalities -Also given increased swelling in extremity will obtain duplex to assess for further clot burden if any -Rapid COVID-negative, will obtain PCR -Did have some scattered nonspecific subcentimeter mediastinal lymphadenopathy with mild right hilar lymphadenopathy on CTA, can consider discussing with pulmonology if this requires further work-up or monitoring #Hypoxia secondary to #1 -O2, incentive spirometry -Heparin drip as above -PT consulted -May need ambulated to assess for O2 needs prior to discharge -Low suspicion for infectious process so we will hold off on antibiotics at thistime -BNP only 24 and no edema appreciated on imaging #NSTEMI likely type II -EKG with first-degree block but otherwise no significant abnormalities -First troponin minimally elevated and has no chest pain, second troponin pending -Obtaining echo, will hold off on consulting cardiology at this time pending results and clinical progress -CTA did note some moderate coronary artery calcifications, may need to consideroutpatient work-up once patient clinically stable -No chest pain at this time an alternate explanation for his shortness of breath #CKD stage III unclear subtype -Appears close to baseline however did receive contrast with CTA, will give somegentle hydration and check BMP in a.m. -We will hold lisinopril #DVT ppx: On hep drip Noemi Manuel MD Time spent in the patient's overall evaluation,decision-making process, review of diagnostic data, adjustment of management, discussion with other providers, nursing nursing and ancillary staff involved in patient's care documentation, 60minutes Charges/Coding Visit Charges Inpatient E&M: 08293 Init Hosp L2 09/03/222122 <Electronically signed by Noemi Manuel MD> Cosigner Signature (if applicable): CC: Dr. Gladis Nava MD; Dr. Noemi Manuel MD~ Signed [facility] Work Phone: Reason for referral (narrative)No reason for referral information [facility] Work Phone: Chief Complaint and Reason for Visit Chief Complaint RLE EDEMA Chief Complaint 1 Y FU HYPOXIA, BILATERAL PE HYPOXIA, BILATERAL PE Reason for Visit Asthma FREDI (obstructive sleep apnea) Elevated troponin Exertional dyspnea Hypoxemia Pulmonary emboli FREDI (obstructive sleep apnea) Chief Complaint 1 Y FU HYPOXIA, BILATERAL PE HYPOXIA, BILATERAL PE HYPOXIA, BILATERAL PE HYPOXIA, BILATERAL PE Reason for Visit Asthma FREDI (obstructive sleep apnea) Acute respiratory failure with hypoxia DVT (deep venous thrombosis) Elevated troponin Exertional dyspnea Hypoxemia NSTEMI, initial episode of care Pulmonary emboli Pulmonary hypertension FREDI (obstructive sleep apnea) Chief Complaint 1 Y FU HYPOXIA, BILATERAL PE HYPOXIA, BILATERAL PE HYPOXIA, BILATERAL PE HYPOXIA, BILATERAL PE Reason for Visit Acute respiratory fa ilure with hypoxia Elevated troponin Exertional dyspnea Hypoxemia NSTEMI, initial episode of care Chief Complaint Admit Date BRONCHITIS July 27, 2024 5 :10pm ABN LABS July 28, 2024 2 :59pm E-ORDER August 06, 2024 4 :27pm E-ORDER August 13, 2024 1 2:41pm BALANCE/ PT HAS RX September 18, 2024 11:3 0am Chief Complaint Admit Date BRONCHITIS July 27, 2024 5 :10pm ABN LABS July 28, 2024 2 :59pm E-ORDER August 06, 2024 4 :27pm E-ORDER August 13, 2024 1 2:41pm BALANCE/ PT HAS RX October 01, 2024 11: 00am Chief Complaint Admit Date BRONCHITIS July 27, 2024 5 :10pm ABN LABS July 28, 2024 2 :59pm E-ORDER August 06, 2024 4 :27pm E-ORDER August 13, 2024 1 2:41pm BALANCE/ PT HAS RX October 01, 2024 11: 00am 1 Y FU October 21, 2024 3:16 pm TYPE 2 DM October 26, 2024 9:2 0am EORDERS November 16, 2024 1:22pm Reason for Visit Admit Date Irregular heart rhythm October 21, 2024 3 :16pm Memory impairment October 21, 2024 3:16 pm Asthma October 21, 2024 3:16 pm FREDI (obstructive sleep apnea) October 21, 2024 3:16pm Advance Directives No Advanced Directives Records Found Advance Directive Response Recorded Date/ Time Living Will Yes February 28, 201 8 11:32am Power of Case Management Coordinator Yes February 28, 2 018 11:32am Advance Directive Response Recorded Date/ Time Living Will No September 03, 2 023 5:47pm Power of Case Management Coordinator No September 03, 2022 5:47pm Advance Directive Response Recorded Date/ Time Living Will No September 03, 2 023 10:06pm Power of Case Management Coordinator No September 03, 2022 10:06pm Advance Directive Response Recorded Date/ Time Living Will No September 03, 2 023 11:06pm Power of Case Management Coordinator No September 03, 2022 11:06pm Advance Directive Response Recorded Date/ Time Living Will No July 28 4:50pm Power of Case Management Coordinator No July 28, 2024 4:50pm Advance Directive Response Recorded Date/ Time Living Will No July 28 4:50pm Do you have a Healthcare Power of Case Management Coordinator? No July 28, 2024 4:50pm Advance Directive Response Recorded Date/ Time Living Will No September 03, 023 11:06pm Do you have a Healthcare Power of Case Management Coordinator? No September 03, 2022 11:06pm Living Will No July 28 4:50pm Do you have a Healthcare Power of Case Management Coordinator? No July 28, 2024 4:50pm Reason for Referral Specialty Diagnoses / Procedures Referred By Sammi powers Referred To Contact Radiology Diagnoses BPH with obstruction/lower urinary tract symptoms Procedures MR prostate [place] [id number] [address] Referral ID Status Reason Start Date Expiration Date Visits Requested Visits Authorized [id number] Pending Review Perform Procedure 09/27/2023 09/26/2024 1 1 Referral ID Status Reason Start Date Expiration Date Visits Requested Visits Authorized [id number] Authorized Perform Procedure 09/27/2023 09/26/2024 1 1 Specialty Diagnoses / Procedures Referred By Sammi t Referred To Contact Diagnoses BPH with obstruction/lower urinary tract symptoms Procedures [place] [address] [facility] [address] [place] [address] Referral ID Status Reason Start Date Expiration Date V isits Requested Visits Authorized [id number] Pending Review 10/30/2023 10/29/2024 1 1 Summary Purpose Family History No Family History Records Found Additional Source Comments Goals (unrecognized section and content) Goals may be documented in a n alternate sectionGoals may be documented in an alternate sectionGoals may be documented in an alternate sectionGoals may be documented in an alternate sectionGoals may be documented in an alternate sectionGoals may be documented in an alternate sectionGoals may be documented in an alternate sectionGoals may be documented in an alternate sectionGoals may be documented in an alternate section Care Teams (unrecognized sec tion and content) Team Status: Active Member Role Status Dates Dr. Gladis Nava MD Family Provider Active Dr. Gladis Nava MD Primary Care Provider Active Team Status: Inactive Member Role Status Dates Dr. Gladis Nava MD Primary Care Provider, Referring P jennifer Active Dr. Kash Calle , Attending Provider Active Team Status: Active Member Role Status Dates Dr. Gladis Nava MD Primary Care Provider Active Dr. Franklin Cervantes DO Emergency Provider Active Dr. Noemi Manuel MD Admit Provider, Attending Provid er, Other Provider Active Team Status: Active Member Role Status Dates Dr. Gladis Nava MD Primary Care Provider Active Dr. Franklin Cervantes DO Emergency Provider Active Dr. Noemi Manuel MD Admit Provider, Attending [facility] Active Team Status: Active Member Role Status Dates Dr. Gladis Nava MD Primary Care Provider Active Dr. Gladis Fried MD Attending Provider Active Team Status: Active Member Role Status Dates Dr. Gladis Nava MD Primary Care Provider Active Dr. Ray Cardenas MD Attending Provider Active Team Status: Active Member Role Status Dates Dr. Gladis Nava MD Primary Care Provider Active Dr. Franklin Cervantes DO Emergency Provider Active Dr. Noemi Manuel MD Admit Provider, Other Provider A ctive Dr. Gladis Sue DO Attending Provider, Other Provid er Active Team Status: Inactive Member Role Status Dates Dr. Gladis Nava MD Primary Care Provider Active Dr. Franklin Cervantes DO Emergency Provider Active Dr. Noemi Manuel MD Admit Provider, Other Provider A ctive Dr. Gladis Sue DO Attending Provider Active Team Status: Inactive Member Role Status Dates Dr. Gladis Nava MD Primary Care Provide r, Attending Provider, Referring Provider Active Team Status: Inactive Member Role Status Dates Dr. Gladis Nava MD Primary Care Provider, Attending Chris rodriguez Active General Teller Relationship Specialty Start Date End Date Gladis Nava MD [address] [place] [address] PCP - General Family Medicine 09/27/23 General Teller Relationship Specialty Start Date End Date Gladis Nava MD [address] [place] [address] PCP - General Family Medicine 09/27/23 General Teller Relationship Specialty Start Date End Date Gladis Nava MD [address] [place] [address] PCP - General Family Medicine 09/27/23 General Teller Relationship Specialty Start Date End Date Gladis Nava MD [address] [place] [address] PCP - General Family Medicine 09/27/23 Team Status: Active Member Role Status Dates Dr. Gladis Nava MD Primary Care Provider Active Team Status: Inactive Member Role Status Dates Dr. Gladis Nava MD Primary Care Provider Active Start: July 27, 2024 End: July 27, 2024 Dr. Gladis Nava MD Attending Provider Active St art: July 27, 2024 End: July 27, 2024 Dr. Gladis Nava MD Referring Provider Active St art: July 27, 2024 End: July 27, 2024 Team Status: Inactive Member Role Status Dates Dr. Gladis Nava MD Primary Care Provider Active Start: July 28, 2024 End: July 28, 2024 Dr. Gladis Nava MD Attending Provider Active St art: July 28, 2024 End: July 28, 2024 Dr. Gladis Nava MD Referring Provider Active St art: July 28, 2024 End: July 28, 2024 Team Status: Inactive Member Role Status Dates Dr. Gladis Nava MD Primary Care Provider Active Start: July 28, 2024 End: July 28, 2024 Dr. Jaya Quick DO Attending Provider Active Start: July 28, 2024 End: July 28, 2024 Dr. Jaya Quick DO Emergency Provider Active Start: July 28, 2024 End: July 28, 2024 Team Status: Inactive Member Role Status Dates Dr. Gladis Nava MD Primary Care Provider Active Start: August 06, 2024 End: August 06, 2024 Dr. Gladis Nava MD Attending Provider Active St art: August 06, 2024 End: August 06, 2024 Dr. Gladis Nava MD Referring Provider Active St art: August 06, 2024 End: August 06, 2024 Team Status: Inactive Member Role Status Dates Dr. Gladis Nava MD Primary Care Provider Active Start: August 13, 2024 End: August 13, 2024 Dr. Gladis Nava MD Attending Provider Active St art: August 13, 2024 End: August 13, 2024 Dr. Gladis Nava MD Referring Provider Active St art: August 13, 2024 End: August 13, 2024 Team Status: Inactive Member Role Status Dates Dr. Gladis Nava MD Primary Care Provider Active Start: September 10, 2024 End: September 10, 2024 Dr. Gladis Nava MD Attending Provider Active St art: September 10, 2024 End: September 10, 2024 Dr. Gladis Nava MD Referring Provider Active St art: September 10, 2024 End: September 10, 2024 Team Status: Active Member Role Status Dates Dr. Gladis Nava MD Primary Care Provider Active Start: September 18, 2024 Dr. Gladis Nava MD Attending Provider Active St art: September 18, 2024 Dr. Gladis Nava MD Referring Provider Active St art: September 18, 2024 Team Status: Inactive Member Role Status Dates Dr. Gladis Nava MD Primary Care Provider Active Start: October 01, 2024 End: October 01, 2024 Dr. Gladis Nava MD Attending Provider Active St art: October 01, 2024 End: October 01, 2024 Dr. Gladis Nava MD Referring Provider Active St art: October 01, 2024 End: October 01, 2024 Team Status: Inactive Member Role Status Dates Dr. Gladis Nava MD Primary Care Provider Active Start: October 21, 2024 End: October 21, 2024 Dr. Gladis Nava MD Referring Provider Active St art: October 21, 2024 End: October 21, 2024 Lissette Flores KITCHEN DESIGNER, KITCHEN DESIGNER-C Attending Provider Active Start: October 21, 2024 End: October 21, 2024 Team Status: Inactive Member Role Status Dates Dr. Gladis Nava MD Primary Care Provider Active Start: October 26, 2024 End: November 11, 2024 Dr. Gladis Nava MD Attending Provider Active St art: October 26, 2024 End: November 11, 2024 Dr. Gladis Nava MD Referring Provider Active St art: October 26, 2024 End: November 11, 2024 Team Status: Inactive Member Role Status Dates Dr. Gladis Nava MD Primary Care Provider Active Start: November 16, 2024 End: November 16, 2024 Dr. Gladis Nava MD Attending Provider Active St art: November 16, 2024 End: November 16, 2024 Dr. Gladis Nava MD Referring Provider Active St art: November 16, 2024 End: November 16, 2024 Reason for Visit (unrecogniz ed section and content) Reason Comments New Patient Visit Specialty Diagnoses / Procedures Referred By Contac t Referred To Contact Radiology Diagnoses BPH with obstruction/lower urinary tract symptoms Procedures MR prostate [place] [id number] [address] Referral ID Status Reason Start Date Expiration Date Visits Requested Visits Authorized [id number] Authorized Perform Procedure 09/27/2023 09/26/2024 1 1 Reason Comments Follow-up MRI results Reason Comments Follow-up Cystoscopy (unrecognized sect ion and content) No Status Records FoundNo Status Records FoundNo Status Records FoundNo Status Records Found INFORMATION SOURCE (unrecogn ized section and content) DATE CREATED AUTHOR 10/17/2023 [facility] DATE CREATED AUTHOR AUTHOR'S ORGANIZ ATION 12/01/2023 [facility] DATE CREATED AUTHOR AUTHOR'S RADHA ATION 12/02/2023 [facility] DATE CREATED AUTHOR AUTHOR'S RADHA ATION 11/22/2024 [facility] FOR RECORDS PERTAINING TO PATIENTS WHO ARE OR HAVE BEEN ENROLLED IN A CHEMICAL DEPENDENCY/SUBSTANCEABUSE PROGRAM, SOME INFORMATION MAY BE OMITTED. This clinical summary was aggregated from multiple sources. Caution should be exercised in using it in the provision of clinical care. This summary normalizes information from multiple sources, and as a consequence, information in this document may materially change the coding, format and clinical context of patient data. In addition, data may be omitted in some cases. CLINICAL DECISIONS SHOULD BE BASED ON THE PRIMARY CLINICAL RECORDS. [employer] provides no warranty or guarantee of the accuracy or completeness of information in this document.
[2025-01-10] MEDS: Ampicillin/Sulbactam 3 GM in 0.9% Normal Saline (100mL MB+) 100 ML IV ×2 (14:28→18:11)
[2025-01-10 14:38] LABS: Absolute Lymphocyte Count 0.45 X10^3/uL (0.83-4.51); Absolute Neutrophil Count 10.5 X10^3/uL (2.0-7.7); Basophil# 0.03 X10^3/uL; Basophil% 0.3 % (0-1); Hematocrit 44.6 % (40-54); Lymphocyte # 0.45 X10^3/ul (0.83-4.51); Lymphocyte % 3.8 % (19-41); Mean Corp Hgb Conc 33.6 g/dL (32-36); Mean Corpuscular Hgb 30.2 pg (27.0-32.0); Mean Corpuscular Volume 89.9 fL (80-94); Mean Platelet Vol. 8.8 fl (6.2-12.0); Monocyte# 1.02 X10^3/uL; Monocyte% 8.5 % (0-10); NRBC Flagged by Analyzer 0 % (0-5); Neutrophil # 10.45 X10^3/uL (2.7-7.7); POSITIVE DIFFERENTIAL YES; Platelet Count 230 K/mm3 (150-450); RBC Distribution Width CV 13.6 % (11.6-14.6); RBC Distribution Width SD 45.1 fl (35.1-43.9); Red Blood Count 4.96 M/mm3 (4.6-6.2)
[2025-01-10 14:43] LABS: Anion Gap 11 (5-15); BUN 22 mg/dL (4-19); BUN/Creat Ratio 15.9 RATIO (10-20); Calcium,Total 8.9 mg/dL (7.6-11.0); Carbon Dioxide 23.5 mmol/L (21.0-32.0); Chloride 102 mmol/L (98-108); Creatinine, Serum 1.37 mg/dL (0.70-1.20); EST Glomerular Filtration Rate 51 (>60); Glucose 113 mg/dL (70-99); Lactic Acid 1.1 mmol/L (0.0-2.0); Potassium 4.7 mmol/L (3.3-5.1); Sodium Level 136 mmol/L (133-145)
--- NOTE | 2025-01-10 15:20 | CASEMGMT ---
Care Management Face to Face with patient for initial transition planning/care coordination assessment in the ED.? This contract writer introduced self and role at [facility]. Patient partially alert and oriented. Patient willing to participate in assessment and is able to answer some questions appropriately however kept falling asleep during assessment.? Patient?s , Soco was present as well as patient?s [id number] Keyanna.? Both assisted with assessment when needed. Care providers, pharmacy, and demographics verified. ? Admitting Diagnosis: Cellulitis of left leg. Other diagnosis history: Including but not limited to: Diabetes, Pulmonary hypertension, deep venous thrombosis, Iron deficiency anemia, Obstructive sleep apnea, Daytime hypersomnia, ankle surgery, Degenerative disc disease, Syncope and collapse, Hypogonadism, Hyperlipidemia, Benign prostatic hyperplasia, Restrictive lung disease and Gastroesophageal reflux disease. PCP: Dr. David Nava Specialists: Pulmonary: FELIX Flores and Cardio: Dr. Calle Preferred Pharmacy: [facility] Insurance: Medicare/[employer] Prescription Benefit: Yes Living Will/HPOA: Yes.? DNR-CC obtained.? [employer] Consultant requested a copy of the HPOA to be brought in which patient?s agreed to. LNOK: Patient?s , Soco, patient?s daughters, Demian and Joleen, both of [place], patient?s sons, Raul of [place] and Kwasi of [place]. Living Arrangements: Patient currently lives at home with his and 23-year-old grandson, Olvin, who has been helping out patient and patient?s as needed. Patient lives in a two-story home however patient?s bedroom and bathroom are both on the first floor. Patient does not use the second floor of his home. There are 3 steps leading in/out of the home with a handrail which, at times, are difficult for patient to ambulate. No other environmental barriers were identified. Transportation: Both patient and patient?s drive. No transportation barriers were identified. DME: Patient has a standard cane, rollator, CPAP machine through [employer], grab bar by toilet and by shower, lift chair and raised toilet. Patient?s discussed ?a desire for an emergency response device (ERD)with fall detection so [employer] Consultant provided a list of ERD providers. HHC: Denied SNF/Rehab: Denied Community Resources: Patient was described as being very active in his [employer]. Behavioral Health History: Patient?s reported patient is on medication for agitation which she described as very effective. No other behavioral health history. Patient goals: Patient wishes to discharge home, denies need for home health care at this time. Patient denies any further needs or concerns at this time. Disposition Plan: admission to acute; RN CM/SW to follow for discharge planning needs that may arise. Ivelisse Colmenares, ACCOUNT UNDERWRITER, CARD ASSEMBLER
--- NOTE | 2025-01-10 15:43 | PCM.HP.STD ---
HPI - General General Date of Admission: 01/10/25 Date of Service: 01/10/25 Chief Complaint: Generalized weakness, left lower extremity cellulitis HPI Narrative CINDY COSTA, is a 84-year-old male history of FREDI, diabetes, hypertension, DVT/PE, asthma, dementia, depression who presented [facility] ED 01/10/2025 with generalized weakness that developed over the past day resulting in 2 falls overnight (patient did not have enough strength to get in bed and lowered self to the ground without any significant fall or hitting his head/injury but required getting help up by family.) This a.m. family also noted that left lower extremity and foot were red so given the concern for left lower extremity cellulitis and his generalized weakness he was brought to the hospital. In the ED afebrile, heart rate 73 with blood pressure 140/74, respiratory rate 18 pulse ox 98% on room air. White blood cell count of 12 with left shift, lactic acid 1.1 and BUN 22 with creatinine 1.37, slightly up from baseline but does not meet criteria for AARON. Chest x-ray no acute process. Patient started on Unasyn for left lower extremity cellulitis and hospitalist contacted for admission. Patient evaluated with family at bedside, patient somewhat poor historian but it seems as though he has chronic left lower extremity swelling compared to right but over the past 24 hours developed some cellulitis of the left foot and ankle and has had generalized weakness since yesterday with 2 episodes where he fell/slid down to the ground and required help getting up. Denied hitting his head or any specific injuries though they are wondering if maybe he did hurt his left ankle because of the pain and redness. Patient denies any fevers, no other new or acute complaints [facility] Medical History Allergic rhinitis ankle surgery Asthma BPH (benign prostatic hyperplasia) Bronchitis Cough Cough Daytime hypersomnia DDD (degenerative disc disease) Diabetes DVT (deep venous thrombosis) GERD (gastroesophageal reflux disease) Hyperlipidemia Hypertension Hypogonadism Iron deficiency anemia FREDI (obstructive sleep apnea) Pulmonary emboli Pulmonary hypertension Restrictive lung disease Shortness of breath on exertion Syncope and collapse Wheezing Home Medications ?Medication ?Instructions ?Recorded ?Last Taken ?Type ferrous sulfate 325 mg (65 mg 325 mg PO DAILY #90 tabs 03/04/18 Unknown Rx iron) tablet fluticasone propionate 50 2 spray intranasal DAILY #16 grams 01/14/23 Unknown Rx mcg/actuation nasal spray,suspension ramipril 2.5 mg capsule 2.5 mg PO DAILY 01/14/23 Unknown History albuterol sulfate 90 mcg/actuation 2 puff inhalation Q4H PRN 10/16/23 Unknown Rx aerosol inhaler shortness of breath or wheezing #8.5 grams fluticasone 500 mcg-salmeterol 50 1 inh inhalation BID #60 ea 09/24/24 Unknown Rx mcg/dose blistr powdr for inhalation (Wixela Inhub) dapagliflozin propanediol 10 mg 10 mg PO QDAY 10/21/24 Unknown History tablet (Farxiga) donepezil 10 mg tablet 10 mg PO QDAY 10/21/24 Unknown History sitagliptin phosphate 100 mg 100 mg PO QDAY 10/21/24 Unknown History tablet (Januvia) escitalopram oxalate 10 mg tablet 10 mg PO DAILY 01/10/25 Unknown History Allergy/AdvReac Type Severity Reaction Status Date / Time azithromycin Allergy unknown Verified 01/10/25 13:30 ciprofloxacin (From Cipro) Allergy confusion Verified 01/10/25 13:30 Environmental Allergies: Allergy NEEDS Verified 01/10/25 13:30 Uncoded FOLLOW-UP Family History (Reviewed 10/21/24 @ 15:35 by Lissette Flores BEHAVIORAL HEALTH TECHNICIAN, BEHAVIORAL HEALTH TECHNICIAN-C) Brother Heart disease Surgical History H/O bilateral inguinal hernia repair H/O sinus surgery History of prostate surgery Social History (Reviewed 10/21/24 @ 15:35 by Lissette Flores BEHAVIORAL HEALTH TECHNICIAN, BEHAVIORAL HEALTH TECHNICIAN-C) household members: spouse number of children: 4 current occupational status: retired Smoking Status: Never smoker second hand exposure: No alcohol intake: never substance use type: does not use ROS ROS Narrative General: Denies fever/chills HENT: Denies headache, denies stuffy nose, denies sore throat EYES: Denies changes in vision Resp: Denies cough, denies shortness of breath Cardiac: Denies chest pain GI: Denies abdominal pain, denies changes in bowel, denies nausea/vomiting : Denies changes in urination Extremity: Lower extremity swelling left greater than right that is chronic MSK: Generalized weakness Neuro: Denies any numbness/tingling Heme: Denies any bleeding or bruising Skin: Erythema over left foot and ankle Psychiatric: No complaints voiced Vital Signs Vital Signs Vital Signs: 01/10/25 13:29 01/10/25 14:15 01/10/25 14:28 Temperature 98.3 F 98.5 F Temperature Source Oral Oral Pulse Rate 73 78 Respiratory Rate 18 12 Respiratory Effort Respiratory Pattern Blood Pressure 140/74 H 138/90 H 116/61 Blood Pressure Mean 96 98 79 Pulse Ox 98 97 Oxygen Delivery Method Room Air 01/10/25 14:30 01/10/25 14:36 01/10/25 14:45 Temperature Temperature Source Pulse Rate 85 Respiratory Rate 27 H Respiratory Effort Normal Respiratory Pattern Normal Blood Pressure 116/61 138/70 H Blood Pressure Mean 78 91 Pulse Ox 95 93 Oxygen Delivery Method Room Air 01/10/25 15:00 01/10/25 15:40 Temperature 98.5 F Temperature Source Pulse Rate 85 Respiratory Rate 27 H Respiratory Effort Respiratory Pattern Blood Pressure 139/68 H 139/68 H Blood Pressure Mean 85 91 Pulse Ox 95 95 Oxygen Delivery Method Weight Weight: 111.9 kg Body Mass Index (BMI) 30.0 Physical Exam Narrative General: Alert, knew where he was, what he was here for, the month, day of the week, had difficult time recalling the year without prompting, no apparent distress HEENT: Atraumatic, normocephalic Eyes: Anicteric, normal conjunctiva, extraocular movements grossly intact Neck: Supple Respiratory: Clear to auscultation bilaterally, normal respiratory effort Cardiovascular: Regular rate and rhythm GI: Soft, nontender, nondistended Extremities: Some bilateral lower extremity edema around 1+ left greater than right which reportedly is chronic Musculoskeletal: Moving all extremities, is able to move left ankle up and down without any significant pain, reports a little tenderness on palpation over dorsum of foot but no point tenderness or severe tenderness Neuro: No overt focal neurological deficits Skin: Patient with erythema on dorsum of left foot up to ankle Psych: Cooperative Results Lab / Micro Data 01/10/25 14:00 01/10/25 14:00 Labs: Laboratory Results - last 24 hr 01/10/25 14:00: WBC 12.0 H, RBC 4.96, Hgb 15.0, Hct 44.6, MCV 89.9, MCH 30.2, MCHC 33.6, RDW Std Deviation 45.1 H, RDW Coeff of Candy 13.6, Plt Count 230, MPV 8.8, Immature Gran % (Auto) 0.400, Neut % (Auto) 87.0 H, Lymph % (Auto) 3.8 L, [place] % (Auto) 8.5, Eos % (Auto) 0.0, Baso % (Auto) 0.3, Absolute Neuts (auto) 10.5 H, Absolute Lymphs (auto) 0.45 L, Nucleated RBC % 0, Sodium 136, Potassium 4.7, Chloride 102, Carbon Dioxide 23.5, Anion Gap 11, BUN 22 H, Creatinine 1.37 H, Estim Creat Clear Calc 54.00, Est GFR (MDRD) Non-Af 51 L, BUN/Creatinine Ratio 15.9, Glucose 113 H, Lactic Acid 1.1, Calcium 8.9 Imaging Radiology Impression Chest X-Ray 01/10/25 14:12 IMPRESSION: Negative Chest. Reading Location: [id number] Assessment & Plan Assessment/Plan (1) Cellulitis of left leg: PLAN: Plan # Left lower extremity cellulitis - Will continue Unasyn - Supportive care - Gentle IV fluids # Generalized weakness - Suspect secondary to patient's underlying cellulitis - Will check UA to verify no additional etiologies - Check TSH #FREDI -Continue home NIPPV #Type 2 diabetes mellitus -Glucose checks and sliding scale insulin - Hold home oral hypoglycemics # History asthma - Follows with pulmonology -Continue home inhaler - Albuterol as needed #Dementia -Supportive care -Continue home medications # Previous history of DVT/PE - In 2022 - No longer on full dose anticoagulation #Depression/anxiety -Continue home Lexapro #Hypertension - Continue ramipril #DVT ppx: Lovenox subcu Noemi Manuel MD Charges/Coding Visit Charges Inpatient E&M: 18347 Init Hosp L2
--- OUTSIDE RECORDS SUMMARY | 2025-01-10 17:04 | XMS RPT_ITS | CCD ---
Author Organization [facility] Care Team Providers Care Weight Calculator Name Role Phone Joleen Roman LPN Unavailable Unavailab Elvira Huddleston Unavailable Unavailable Joleen Roman LPN Unavailable Unavailab Tiffani Bernal Unavailable Unavailable Dr. Gladis Nava Primary Care Provider Dr. Gladis Nava Referring Provider 1([facility])[phone] Kash Calle Attending Provider 1([facility])[phone] Franklin Cervantes Emergency Provider 1([facility])[phone] Noemi Manuel Admit Provider Dr. Noemi Manuel Attending Provider 1([facility])[phone] Noemi Manuel Other Provider Dr. Ray Cardenas Attending Provider 1([facility])[phone] Dr. Gladis Fried Attending Provider 1([facility])[phone] Gladis Sue Attending Provider 1([facility])[phone] Gladis Sue Other Provider Dr. Gladis Nava Primary Care Provider Dr. Gladis Nava Referring Provider 1([facility])[phone] Kash Calle Attending Provider 1([facility])[phone] Franklin Cervantes Emergency Provider 1([facility])[phone] Noemi Manuel Admit Provider Dr. Noemi Manuel Attending Provider 1([facility])[phone] Noemi Manuel Other Provider Dr. Ray Cardenas Attending Provider Dr. Gladis Fried Attending Provider Dr. Gladis Sue Attending Provider Dr. Gladis Sue Other Provider Elijah JORDAN, Gladis Ocampo Primary Care Provider 1([facility])[phone] ELIGIO, MARLON Referring Unavailable NAVA, GLADIS A Primary Care Unavailable ELIGIO, MARLON Attending Unavailable NAVA, GLADIS A Primary Care Unavailable ELIGIO, MARLON Attending Unavailable NAVA, GLADIS A Primary Care Unavailable ELIGIOMARLON Attending Unavailable NAVA, GLADIS A Primary Care Unavailable MARLON DEL VALLE Admitting Unavailable MARLON DEL VALLE Attending Unavailable NAVA, GLADIS A Primary Care Unavailable Elijah JORDAN, Dr. Hernandez Primary Care Provider Dr. Gladis Nava MD Attending Provider 1([facility])[phone] Dr. Gladis Nava MD Referring Provider 1([facility])[phone] Dr. Jaya Quick DO Attending Provider 1([facility])[phone] Dr. Jaya Quick DO Emergency Provider 1(Critical access hospital)[phone] Mark PLUNKETT-CLissette Attending Provider Nava, Gladis Primary Care Unavailable Nava, Gladis Attending Unavailable Nava, Gladis Referring Unavailable Nava, Gladis Primary Care Unavailable Nava, Gladis Attending Unavailable Nava, Gladis Referring Unavailable Nixon, Justin Attending Unavailable Nixon, Justin Referring Unavailable Nava, Gladis Primary Care Unavailable [...] Care Unavailable Nava, Gladis Primary Care Unavailable Jaya Quick Attending Unavailable Allergies Allergy Classification Reported Allergen(s) Allergy Type Date of Onset Reaction(s) Facility (19 sources) Azithromycin; Translations: [AZITHROMYCIN] Drug Allergy 1 Unknown [facility] (14 sources) Ciprofloxacin; Translations: [CIPROFLOXACIN] Drug Allergy 1 Unknown [facility] (3 sources) ENVIRONMENTAL ALLERGIES Allergy to substance 1 Other [facility] Work Phone: (9 sources) Environmental Allergies: Uncoded; Translations: [Environmental Allergies: Uncoded] Allergy to substance 2 NEEDS FOLLOW-UP [facility] (1 source) Azithromycin Drug Allergy 5 [facility] Repository (1 source) Ciprofloxacin Drug Allergy 5 [facility] Repository Medications Current Medications Medication Drug Class(es) Dates Sig (Normalized) Sig (Original) [id number] 200 actuat albuterol 0.09 mg/actuat metered dose [...] Active 1 NMA INHALATION TWICE A DAY 60 September 24, 2024 10:52am Start: 09-16-2023 take [...] NMA INHALATION TWICE A DAY 60 September 16, 2023 9:55am September 24, 2024 10:52am Start: 09-16-2023 Fluticasone Pr opion-Salmeterol (Wixela Inhub) 500-50 mcg/dose blister with device Active 1 NMA INHALATION TWICE A DAY 60 September 16, 2023 9:55am Start: 09-03-2022 End: [...] Start: 08-11-2020 End: 02-15-2021 Fluticasone Propion-Salmeter ol (Samuelxjayden Inhub) 500-50 mcg/dose blister with device Discontinued [...] Discontinued 10 mg PO TWICE A DAY September 06, 2022 1:00am October 16, 2023 [...] tablet by mouth three times daily BENZONATATE [id number] Elvira Royal 120 actuat budesonide 0.16 mg/actuat [...] One tablet by mouth twice daily CEFDINIR [id number] Elvira Royal chlorpheniramine maleate 4 mg oral [...] every 4 hours as needed GUAIFENESIN-CODEI [place] [id number] Elvira Royal lisinopril 10 mg oral tablet [...] Start: 06-12-2017 take 1 tablet by kelechi th once daily LISINOPRIL 10 MG TABS One tablet by mouth daily LISINOPRIL [id number] Elvira Royal montelukast 10 mg oral tablet [...] mouth daily X2 days, then stop PREDNISONE [id number] Elvira Royal RABEprazole sodium 20 mg delayed [...] 1 tablet every other day RABEPRAZOLE SODIUM [id number] Elvira Royal triamcinolone acetonide 40 mg/ml injectable suspension (4 sources) Corticosteroid Start: 07-17-2019 End: 07-17-2019 Kenalog (triamcinolone acetonide) 40 mg/mL suspension for injection Discontinued 90 MG INTRAARTIC ONCE 2.July 17, 2019 12:08pm July 17, 2019 1:05pm Start: 06-08-2019 End: 06-08-2019 Kenalog (triamcinolone aceto nide) 40 mg/mL suspension for injection Discontinued 90 MG INTRAARTIC ONCE 2.June 08, 2019 4:02pm June 08, 2019 5:10pm [...] mellitus without complications] Onset: 5 10-21-2024 Chronic Disorders of lipid metabolism (11 sources) Hyperlipidemia; Translations: [Hyperlipidemia, unspecified] 03-04-2018 Chronic Esophageal disorders (11 sources) Gastroesophageal reflux disease; Translations: [Gastro-esophageal reflux disease without esophagitis] 06-08-2019 Chronic Essential hypertension (11 sources) Hypertensive disorder; Translations: [Essential (primary) hypertension] 03-04-2018 Chronic Genitourinary symptoms and ill-defined conditions (4 sources) Increased frequency of urination; Translations: [Frequency of micturition] Onset: 4 09-27-2023 Episodic Hyperplasia of prostate (20 sources) Benign prostatic hyperplasia; Translations: [Benign prostatic hyperplasia without lower urinary tract symptoms] Onset: 4 06-08-2019 Chronic Other aftercare (1 source) 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; 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] 10-30-2023 Episodic Other aftercare (2 sources) [facility] (current) use of antibiotics; Translations: [[facility] (current) use of antibiotics] Onset: 4 Episodic [...] Translations: [Other obstructive and reflux uropathy] Onset: 4 Episodic Other endocrine disorders (3 sources) Hypogonadism [...] of the respiratory system] 08-05-2024 Episodic Other upper respiratory disease (11 sources) [...] vaccination ; Translations: [Encounter for immunization] Onset: 7 06-12-2017 Unclassified (2 sources) No current problems or disability 06-11-2017 Past or Other Problems Problem Classification Problem Date Documented Da te Episodic/Chronic Chronic obstructive pulmonary disease and bronchiectasis (1 source) Bronchitis, not specified as acute or chronic; Translations: [Bronchitis, not specified as acute or chronic] Onset: 08-20-2024 Episodic Diabetes mellitus without complication (1 source) Glycosuria; Translations: [Glycosuria] Onset: 08-28-2024 Episodic Other lower respiratory disease (2 sources) Wheezing; Translations: [Wheezing] Onset: 06-12-2017 06-12-2017 Episodic Other nervous system disorders (1 source) Unsteadiness on feet; Translations: [Unsteadiness on feet] Onset: 10-06-2024 Episodic Other screening for suspected conditions (not mental disorders or infectious disease) (1 source) Abnormal finding of blood chemistry, unspecified; Translations: [Abnormal finding of blood chemistry, unspecified] Onset: 08-18-2024 Episodic Unclassified (11 sources) ankle surgery 06-08-2019 Unclassified (8 sources) Hypogonadism; Translations: [Hypogonadism] 06-08-2019 Unclassified (5 sources) Onset: 09-27-2023 Resolved: 11-29-2023 09-27-2023 Urinary tract infections (1 source) Urinary tract infection, site not specified; Translations: [Urinary tract infection, site not specified] Onset: 08-28-2024 Episodic Results Test Name Value Interpretation Reference Range Facility Basic Metabolic Profile (BMP )on 01-10-2025 BUN/CRE 15.9 RATIO Normal 10-20 [facility] Comment on above: Performed By: #### L 501.9985, L502.0250, L500.4050 #### [facility] [address] [place], [address] Calcium [Mass/Vol] 8.9 mg/dL Normal 7.6-11.0 [facility] Comment on above: Performed By: #### L 501.9985, L502.0250, L500.4050 #### [facility] [address] [place], [address] Chloride [Moles/Vol] 102 mmol/L Normal 98-108 [facility] Comment on above: Performed By: #### L 501.9985, L502.0250, L500.4050 #### [facility] [address] [place], [address] CO2 [Moles/Vol] 23.5 mmol/L Normal 21.0-32.0 [facility] Comment on above: Performed By: #### L 501.9985, L502.0250, L500.4050 #### [facility] [address] [place], [address] Creatinine [Mass/Vol] 1.37 mg/dL High 0.70-1.20 [facility] Comment on above: Performed By: #### L 501.9985, L502.0250, L500.4050 #### [facility] [address] [place], [address] ECRCL 54.00 ml/min Normal 50-250 [facility] Comment on above: Performed By: #### L 501.9985, L502.0250, [id number] #### [facility] [address] [place], [address] GAP 11 Normal 5-15 [facility] Comment on above: Performed By: #### L 501.9985, L502.0250, L500.4050 #### [facility] [address] [place], [address] GFR/1.73 sq M.predicted among non-blacks MDRD (S/P/Bld) [Vol rate/Area] 51 mL/min/{1.73_m2} Low >60 [facility] Comment on above: Result Comment: mL/m in/1.73m2 CKD-EPI Creatinine Equation (2020) Performed By: #### L 501.9985, L502.0250, L500.4050 #### [facility] [address] [place], [address] Glucose [Mass/Vol] 113 mg/dL High 70-99 [facility] Comment on above: Performed By: #### L 501.9985, L502.0250, L500.4050 #### [facility] [address] [place], [address] Potassium [Moles/Vol] 4.7 mmol/L Normal 3.3-5.1 [facility] Comment on above: Performed By: #### L 501.9985, L502.0250, L500.4050 #### [facility] [address] [place], [address] Sodium [Moles/Vol] 136 mmol/L Normal 133-145 [facility] Comment on above: Performed By: #### L 501.9985, L502.0250, [id number] #### [facility] [address] [place], [address] Urea nitrogen [Mass/Vol] 22 mg/dL High 4-19 [facility] Comment on above: Performed By: #### L 501.9985, L502.0250, L500.4050 #### [facility] [address] [place], [address] CBC W/Diff, Automatedon 06-2 -2024 Absolute Lymph 0.45 X10 3/uL Low 0.83-4.51 [facility] Comment on above: Performed By: #### L 501.9985, L502.0250, L500.4050 #### [facility] [address] [place], [address] Absolute Neut 10.5 X10 3/uL High 2.0-7.7 [facility] Comment on above: Performed By: #### L 501.9985, L502.0250, [id number] #### [facility] [address] [place], [address] Basophils/100 WBC (Bld) 0.3 % Normal 0-1 [facility] Comment on above: Performed By: #### L 501.9985, L502.0250, L500.4050 #### [facility] [address] [place], [address] Eosinophils/100 WBC (Bld) 0.0 % Normal 0-5 [facility] Comment on above: Performed By: #### L 501.9985, L502.0250, [id number] #### [facility] [address] [place], [address] Erythrocyte distribution width (RBC) [Ratio] 13.6 % Normal 11.6-14.6 [facility] Comment on above: Performed By: #### L 501.9985, L502.0250, L500.4050 #### [facility] [address] [place], [address] Hematocrit (Bld) [Volume fraction] 44.6 % Normal 40-54 [facility] Comment on above: Performed By: #### L 501.9985, L502.0250, L500.4050 #### [facility] [address] [place], [address] Hemoglobin (Bld) [Mass/Vol] 15.0 g/dL Normal 13.0-16.5 [facility] Comment on above: Performed By: #### L 501.9985, L502.0250, L500.4050 #### [facility] [address] [place], [address] IG% 0.400 Normal 0.0-0.9 [facility] Comment on above: Result Comment: IG% - Immature Granulocytes (promyelocytes, myelocytes and metamyelocytes) > 1% indicates that a LEFT SHIFT is Present. Performed By: #### L 501.9985, L502.0250, L500.4050 #### [facility] [address] [place], [address] Lymphocytes/100 WBC (Bld) 3.8 % Low 19-41 [facility] Comment on above: Performed By: #### L 501.9985, L502.0250, L500.4050 #### [facility] [address] [place], [address] MCH (RBC) [Entitic mass] 30.2 pg Normal 27.0-32.0 [facility] Comment on above: Performed By: #### L 501.9985, L502.0250, L500.4050 #### [facility] [address] [place], [address] MCHC (RBC) [Mass/Vol] 33.6 g/dL Normal 32-36 [facility] Comment on above: Performed By: #### L 501.9985, L502.0250, [id number] #### [facility] [address] [place], [address] MCV (RBC) [Entitic vol] 89.9 fL Normal 80-94 [facility] Comment on above: Performed By: #### L 501.9985, L502.0250, L500.4050 #### [facility] [address] [place], [address] Monocytes/100 WBC (Bld) 8.5 % Normal 0-10 [facility] Comment on above: Performed By: #### L 501.9985, L502.0250, L500.4050 #### [facility] [address] [place], [address] Neutrophils/100 WBC (Bld) 87.0 % High 47-70 [facility] Comment on above: Performed By: #### L 501.9985, L502.0250, L500.4050 #### [facility] [address] [place], [address] Nucleated RBC (Bld) [#/Vol] 0 10*3/uL Normal 0-5 [facility] Comment on above: Performed By: #### L 501.9985, L502.0250, L500.4050 #### [facility] [address] [place], [address] Platelet mean volume (Bld) [Entitic vol] 8.8 fL Normal 6.2-12.0 [facility] Comment on above: Performed By: #### L 501.9985, L502.0250, L500.4050 #### [facility] [address] [place], [address] Platelets (Bld) [#/Vol] 230 10*3/uL Normal 150-450 [facility] Comment on above: Performed By: #### L 501.9985, L502.0250, L500.4050 #### [facility] [address] [place], [address] RBC (Bld) [#/Vol] 4.96 10*6/uL Normal 4.6-6.2 [facility] Comment on above: Performed By: #### L 501.9985, L502.0250, L500.4050 #### [facility] [address] [place], [address] RDW SD 45.1 fl High 35.1-43.9 [facility] Comment on above: Performed By: #### L 501.9985, L502.0250, L500.4050 #### [facility] [address] [place], [address] WBC (Bld) [#/Vol] 12.0 10*3/uL High 4.4-11.0 [facility] Comment on above: Performed By: #### L 501.9985, L502.0250, L500.4050 #### [facility] [address] [place], [address] Chest 1 View (Portable)on Chest 1 View (Portable) [facility] Imaging Services [address] [place] [address] Chest 1 View (Portable) MR#: [id number] Acct: [id number] Name: CINDY COSTA Rep #: [id number] : 1940 M 84 From: Kell Mcfarlane nd, MD PCP: Dr. Gladis Nava MD Status: [facility] ER Study: Chest 1 View (Portable) Date of Exam: 01/10/25 Exam# [id number] Ordering Dr: Nilda Byrd PROCEDURE: CHEST 1 VIEW (PORTABLE) 01/10/2025 REASON FOR EXAM: WEAKNESS TECHNIQUE: Frontal view of the chest. COMPARISON: Chest radiograph 07/27/2024. FINDINGS: Hardware: None. Heart: Cardiac and mediastinal contours are stable. Lungs: No focal consolidation, pleural effusion or pneumothorax. Bones: Degenerative changes are identified within the thoracic spine. RAD/Chest 1 View (Portable) IMPRESSION: Negative Chest. Reading Location: [id number] CC: Dr. Gladis Nava MD; NAIMA [employer] Project Management It Specialist: Signed Normal [facility] Lactic Acidon 01-10-2025 Lactate [Moles/Vol] 1.1 mmol/L Normal 0.0-2.0 [facility] Comment on above: Order Comment: Order Date: 09/07/24 Order Info: 0786-1 - CMP Performed By: #### L 501.9985, L502.0250, L500.4050 #### [facility] [address] [place], [address] Anion gap in Serum or Plasma Ordered By: Gladis Nava on 11-16-2024 Anion gap [Moles/Vol] 12 mmol/L 5- [facility] BUN/creatinine ratioOrdered By: Gladis Nava on 11-16-2024 Urea nitrogen/Creatinine [Mass ratio] 15.7 mg/mg 10- [facility] Bilirubin, totalOrdered By: Gladis Nava on 11-16-2024 Bilirubin [Mass/Vol] 0.59 mg/dL 0.00-1.30 [facility] Carbon dioxide, total [Moles /volume] in Central venous bloodOrdered By: Gladis Nava on 11-16-2024 CO2 [Moles/Vol] 21.8 mmol/L 21.0-32.0 [facility] Chloride assayOrdered By: Robert Nava on 11-16-2024 Chloride [Moles/Vol] 102 mmol/L 98-108 [facility] Comprehensive Metabolic Prof ilon 11-16-2024 Albumin [Mass/Vol] 4.2 g/dL Normal 3.4-4.8 [facility] Comment on above: Order Comment: Order Date: 09/07/24 Order Info: 0786-1 - CMP Performed By: #### L 501.9985, L502.0250, L500.4050 #### [facility] [address] [place], [place], [address] Albumin/Globulin [Mass ratio] 1.3 {ratio} Normal 0.9-2.4 [facility] Comment on above: Order Comment: Order Date: 09/07/24 Order Info: 0786-1 - CMP Performed By: #### L 501.9985, L502.0250, L500.4050 #### [facility] [address] [place], [address] ALK PHOS 51 U/L Normal 40-129 [facility] Comment on above: Order Comment: Order Date: 09/07/24 Order Info: 0786-1 - CMP Performed By: #### L 501.9985, L502.0250, L500.4050 #### [facility] [address] [place], [address] ALT [Catalytic activity/Vol] 12 U/L Normal <=46 [facility] Comment on above: Order Comment: Order Date: 09/07/24 Order Info: 0786-1 - CMP Performed By: #### L 501.9985, L502.0250, L500.4050 #### [facility] [address] [place], [address] AST [Catalytic activity/Vol] 15 U/L Normal <=37 [facility] Comment on above: Order Comment: Order Date: 09/07/24 Order Info: 0786-1 - CMP Performed By: #### L 501.9985, L502.0250, L500.4050 #### [facility] [address] [place], [address] Bilirubin [Mass/Vol] 0.59 mg/dL Normal 0.00-1.30 [facility] Comment on above: Order Comment: Order Date: 09/07/24 Order Info: 0786-1 - CMP Performed By: #### L 501.9985, L502.0250, L500.4050 #### [facility] [address] [place], [address] BUN/CRE 15.7 RATIO Normal 10-20 [facility] Comment on above: Order Comment: Order Date: 09/07/24 Order Info: 0786-1 - CMP Performed By: #### L 501.9985, L502.0250, L500.4050 #### [facility] [address] [place], [address] Calcium [Mass/Vol] 9.2 mg/dL Normal 7.6-11.0 [facility] Comment on above: Order Comment: Order Date: 09/07/24 Order Info: 0786-1 - CMP Performed By: #### L 501.9985, L502.0250, L500.4050 #### [facility] [address] [place], [address] Chloride [Moles/Vol] 102 mmol/L Normal 98-108 [facility] Comment on above: Order Comment: Order Date: 09/07/24 Order Info: 0786-1 - CMP Performed By: #### L 501.9985, L502.0250, L500.4050 #### [facility] [address] [place], [address] CO2 [Moles/Vol] 21.8 mmol/L Normal 21.0-32.0 [facility] Comment on above: Order Comment: Order Date: 09/07/24 Order Info: 0786-1 - CMP Performed By: #### L 501.9985, L502.0250, L500.4050 #### [facility] [address] [place], [address] Creatinine [Mass/Vol] 1.20 mg/dL Normal 0.70-1.20 [facility] Comment on above: Order Comment: Order Date: 09/07/24 Order Info: 0786-1 - CMP Performed By: #### L 501.9985, L502.0250, L500.4050 #### [facility] [address] [place], [address] GAP 12 Normal 5-15 [facility] Comment on above: Order Comment: Order Date: 09/07/24 Order Info: 0786-1 - CMP Performed By: #### L 501.9985, L502.0250, L500.4050 #### [facility] [address] [place], [address] GFR/1.73 sq M.predicted among non-blacks MDRD (S/P/Bld) [Vol rate/Area] 59 mL/min/{1.73_m2} Low >60 [facility] Comment on above: Order Comment: Order Date: 09/07/24 Order Info: 0786-1 - CMP Result Comment: mL/m in/1.73m2 CKD-EPI Creatinine Equation (2020) Performed By: #### L 501.9985, L502.0250, L500.4050 #### [facility] [address] [place], [address] Globulin (S) [Mass/Vol] 3.3 g/dL Normal 2.2-4.2 [facility] Comment on above: Order Comment: Order Date: 09/07/24 Order Info: 0786-1 - CMP Performed By: #### L 501.9985, L502.0250, L500.4050 #### [facility] [address] [place], [address] Glucose [Mass/Vol] 119 mg/dL High 70-99 [facility] Comment on above: Order Comment: Order Date: 09/07/24 Order Info: 0786-1 - CMP Performed By: #### L 501.9985, L502.0250, L500.4050 #### [facility] [address] [place], [address] Potassium [Moles/Vol] 4.4 mmol/L Normal 3.3-5.1 [facility] Comment on above: Order Comment: Order Date: 09/07/24 Order Info: 0786-1 - CMP Performed By: #### L 501.9985, L502.0250, L500.4050 #### [facility] [address] [place], [address] Sodium [Moles/Vol] 136 mmol/L Normal 133-145 [facility] Comment on above: Order Comment: Order Date: 09/07/24 Order Info: 0786-1 - CMP Performed By: #### L 501.9985, L502.0250, L500.4050 #### [facility] [address] [place], [address] T PROT 7.5 g/dL Normal 5.9-8.4 [facility] Comment on above: Order Comment: Order Date: 09/07/24 Order Info: 0786-1 - CMP Performed By: #### L 501.9985, L502.0250, L500.4050 #### [facility] [address] [place], [address] Urea nitrogen [Mass/Vol] 19 mg/dL Normal 4-19 [facility] Comment on above: Order Comment: Order Date: 09/07/24 Order Info: 0786-1 - CMP Performed By: #### L 501.9985, L502.0250, L500.4050 #### [facility] [address] [place], [address] Glomerular filtration rate ( GFR) estimation/1.73 sq m using serum, plasma, or whole bOrdered By: Gladis Nava on 11-16-2024 GFR/1.73 sq M.predicted among non-blacks MDRD (S/P/Bld) [Vol rate/Area] 59 mL/min/{1.73_m2} Low >60 [facility] Comment on above: mL/min/1.73m2 CKD-EP I Creatinine Equation (2020) Hemoglobin A1con 11-16-2024 HbA1c (Bld) [Mass fraction] 6.6 % High <=5.6 [facility] Comment on above: Order Comment: Order Date: 09/07/24 Order Info: [id number] - A1C Result Comment: Norm al < 5.7 % Prediabetic 5.7 - 6.4 % Diabetic >or= 6.5 % Please note range changes. Performed By: #### L 501.9985, L502.0250, L500.4050 #### [facility] [address], [address] Hemoglobin A1c percentageOrd ered By: Gladis Nava on 11-16-2024 HbA1c (Bld) [Mass fraction] 6.6 % High <5.7 [facility] Comment on above: Normal < 5.7 % Predi abetic 5.7 - 6.4 % Diabetic >or= 6.5 % Please note range changes. Laboratory - Chemistry and C hemistry - challengeOrdered By: Gladis Nava on 11-16-2024 AST [Catalytic activity/Vol] 15 U/L <38 [facility] Microalb:Creat Ratio,Random URon 11-16-2024 Creatinine [Mass/Vol] 129.00 mg/dL Normal 39.00-259.00 [facility] Comment on above: Order Comment: Order Date: 09/07/24 Order Info: 0779-1 - MIACRE Order Info: [id number] - ALBU Performed By: #### L 501.9985, L502.0250, L500.4050 #### [facility] [address] [place], [place], [id number] MALB:CREAT UNABLE TO CALCULATE Normal [facility] Comment on above: Order Comment: Order Date: 09/07/24 Order Info: [id number] - MIACRE Order Info: [id number] - ALBU Performed By: #### L 501.9985, L502.0250, L500.4050 #### [facility] [address] [place], [address] MICROALBUMIN,UR < 12.0 Normal NO RANGE EST. [facility] Comment on above: Order Comment: Order Date: 09/07/24 Order Info: [id number] - MIACRE Order Info: [id number] - ALBU Performed By: #### L 501.9985, L502.0250, L500.4050 #### [facility] [address] [place], [address] Microalbumin/creat ratio urO rdered By: Gladis Nava on 11-16-2024 Urine microalbumin/creatinine ratio measurement UNABLE TO CALCULATE mg/g CRE [facility] Potassium measurement (mass/ volume)Ordered By: Gladis Nava on 11-16-2024 Potassium (Unsp spec) [Mass/Vol] 4.4 mmol/L 3.3-5.1 [facility] Random urine creatinine alisson urement (mass/volume)Ordered By: Gladis Nava on 11-16-2024 Creatinine Unsp time (U) [Mass/Vol] 129.00 mg/dL 39.00-259.00 [facility] Serum creatinine measurement (mass/volume)Ordered By: Gladis Nava on 11-16-2024 Creatinine [Mass/Vol] 1.20 mg/dL 0.70-1.20 [facility] Serum globulin measurementOr dered By: Gladis Nava on 11-16-2024 Globulin (S) [Mass/Vol] 3.3 g/dL 2.2-4.2 [facility] Serum glucose measurement (m ass/volume)Ordered By: Gladis Nava on 11-16-2024 Glucose [Mass/Vol] 119 mg/dL High 70-99 [facility] Serum or plasma alanine chawla otransferase (ALT) measurementOrdered By: Gladis Nava on 11-16-2024 ALT [Catalytic activity/Vol] 12 U/L <47 [facility] Serum or plasma albumin alisson urement (mass/volume)Ordered By: Gladis Nava on 11-16-2024 Albumin [Mass/Vol] 4.2 g/dL 3.4-4.8 [facility] Serum or plasma albumin/glob ulin mass ratioOrdered By: Gladis Nava on 11-16-2024 Albumin/Globulin [Mass ratio] 1.3 {ratio} 0.9-2.4 [facility] Serum or plasma alkaline sukh sphatase measurementOrdered By: Gladis Nava on 11-16-2024 ALP [Catalytic activity/Vol] 51 U/L 40-129 [facility] Serum or plasma calcium alisson urement (mass/volume)Ordered By: Gladis Nava on 11-16-2024 Calcium [Mass/Vol] 9.2 mg/dL 7.6-11.0 [facility] Serum or plasma urea nitroge n measurement (mass/volume)Ordered By: Gladis Nava on 11-16-2024 Urea nitrogen [Mass/Vol] 19 mg/dL 4-19 [facility] Sodium levelOrdered By: Gladis Nava on 11-16-2024 Sodium [Moles/Vol] 136 mmol/L 133-145 [facility] Total proteinOrdered By: Danika Nava on 11-16-2024 Protein [Mass/Vol] 7.5 g/dL 5.9-8.4 [facility] Urine albumin measurement [facility] detection limit of 20 mg/L or less (mass/volume)Ordered By: Gladis Nava on 11-16-2024 Albumin DL <= 20 mg/L (U) [Mass/Vol] < 12.0 mg/L NO RANGE EST. [facility] Pulmonary Visit Reporton Pulmonary Visit Report [facility] Pulmonary Medicine of [address] [place] [address] OFFICE VISIT Date of Service: 10/21/24 MR#: [id number] Acct: [id number] Name: CINDY COSTA Rep #: [id number] : 1940 Provider: MARIA DE JESUS Flores Age/Sex: 84/M Location: [facility] [place] [facility] Status: Signed Assessment and Plan Assessment and [...] provider. Plan Details Follow Up: 3 Months ([facility]) HPI 1 Y FU Chief Complaint: wheeze [...] FU Chief Complaint: Daytime somnolence and cough [employer] Required: No DME Vendor: [employer] Accompanied by: Allergies azithromycin Allergy (Verified 10/21/24 [...] dapagliflozin propan (more content not included)... Normal [facility] PT D/C Summary (1)on 025 PT D/C Summary (1) [facility] Physical Therapy [facility] [address] [place] [address] [address] [place] [address] / REHABILITATION SERVICES DISCHARGE SUMMARY MR#: [id number] Acct: [id number] Name: CINDY COSTA Rep #: [id number] : 1940 84 From: Gladis Jones DPT, OCS, CSCS Referring Dr.: Dr. Gladis Nava MD Status: REG R CR Insurance: [facility] [employer] PAY INSURANCE Discharge [...] please feel free to call me at [phone]. Thank you for the referral of this patient. Sincerely, Gladis Jones, DPT, OCS, CSCS Balance/Gait/Functional tests Balance/Special Test Scores Functional Gait Assessment Score: 23 % Disability: 23.3400 CATSIB Score (Max score 120 seconds): 62 Lower Extremity Functional Score: 70 Improvement % Improvement: 80 10/01/24 1202 CC: Dr. Gladis Nava MD EBG Signed Normal [facility] Absolute lymphocyte countOrd ered By: Gladis Nava on 09-10-2024 Lymphocytes Auto (Unsp spec) [#/Vol] 0.84 10*3/uL 0.83-4.51 [facility] Absolute neutrophil countOrd ered By: Gladis Nava on 09-10-2024 Neutrophils (Bld) [#/Vol] 6.0 10*3/uL 2.0-7.7 [facility] Albumin DL <= 20 mg/L (U) [M ass/Vol]Ordered By: Gladis Nava on 09-10-2024 Urine Random Microalbumin < 12.0 mg/L NO RANGE EST. [facility] Automated lymphocyte count a s percentage of total leukocytesOrdered By: Gladis Nava on 09-10-2024 Lymphocytes/100 WBC Auto (Unsp spec) 11.0 % Low 19-41 [facility] BUN/creatinine ratioOrdered By: Gladis Nava on 09-10-2024 Urea nitrogen/Creatinine [Mass ratio] 17.4 mg/mg 10-20 [facility] Basophil percentageOrdered B y: Gladis Nava on 09-10-2024 Basophils/100 WBC (Bld) 0.5 % 0-1 [facility] Bilirubin, totalOrdered By: Gladis Nava on 09-10-2024 Bilirubin [Mass/Vol] 0.55 mg/dL 0.00-1.30 [facility] CBC W/Diff, Automatedon 08-16 Absolute Lymph 0.84 X10 3/uL Normal 0.83-4.51 [facility] Comment on above: Order Comment: Order Date: 09/07/24 Order Info: 0779-1 - MIACRE Order Info: [id number] - ALBU Performed By: #### L 501.9985, L502.0250, L500.4050 #### [facility] [address] [place], [address] Absolute Neut 6.0 X10 3/uL Normal 2.0-7.7 [facility] Comment on above: Order Comment: Order Date: 09/07/24 Order Info: [id number] - MIACRE Order Info: [id number] - ALBU Performed By: #### L 501.9985, L502.0250, L500.4050 #### [facility] [address] [place], [address] Basophils/100 WBC (Bld) 0.5 % Normal 0-1 [facility] Comment on above: Order Comment: Order Date: 09/07/24 Order Info: 0779-1 - MIACRE Order Info: [id number] - ALBU Performed By: #### L 501.9985, L502.0250, L500.4050 #### [facility] [address] [place], [address] Eosinophils/100 WBC (Bld) 0.7 % Normal 0-5 [facility] Comment on above: Order Comment: Order Date: 09/07/24 Order Info: [id number]- - MIACRE Order Info: [id number] - ALBU Performed By: #### L 501.9985, L502.0250, L500.4050 #### [facility] [address] [place], [address] Erythrocyte distribution width (RBC) [Ratio] 13.4 % Normal 11.6-14.6 [facility] Comment on above: Order Comment: Order Date: 09/07/24 Order Info: 0779-1 - MIACRE Order Info: [id number] - ALBU Performed By: #### L 501.9985, L502.0250, L500.4050 #### [facility] [address] [place], [address] Hematocrit (Bld) [Volume fraction] 44.1 % Normal 40-54 [facility] Comment on above: Order Comment: Order Date: 09/07/24 Order Info: 0779-1 - MIACRE Order Info: [id number] - ALBU Performed By: #### L 501.9985, L502.0250, L500.4050 #### [facility] [address] [place], [address] Hemoglobin (Bld) [Mass/Vol] 14.3 g/dL Normal 13.0-16.5 [facility] Comment on above: Order Comment: Order Date: 09/07/24 Order Info: 0779-1 - MIACRE Order Info: [id number] - ALBU Performed By: #### L 501.9985, L502.0250, L500.4050 #### [facility] [address] [place], [address] IG% 0.400 Normal 0.0-0.9 [facility] Comment on above: Order Comment: Order Date: 09/07/24 Order Info: 0779-1 - MIACRE Order Info: [id number] - ALBU Result Comment: IG% - Immature Granulocytes (promyelocytes, myelocytes and metamyelocytes) > 1% indicates that a LEFT SHIFT is Present. Performed By: #### L 501.9985, L502.0250, L500.4050 #### [facility] [address] [place], [address] Lymphocytes/100 WBC (Bld) 11.0 % Low 19-41 [facility] Comment on above: Order Comment: Order Date: 09/07/24 Order Info: 0779-1 - MIACRE Order Info: [id number] - ALBU Performed By: #### L 501.9985, L502.0250, L500.4050 #### [facility] [address] [place], [address] MCH (RBC) [Entitic mass] 30.2 pg Normal 27.0-32.0 [facility] Comment on above: Order Comment: Order Date: 09/07/24 Order Info: 0779-1 - MIACRE Order Info: [id number] - ALBU Performed By: #### L 501.9985, L502.0250, L500.4050 #### [facility] [address] [place], [address] MCHC (RBC) [Mass/Vol] 32.4 g/dL Normal 32-36 [facility] Comment on above: Order Comment: Order Date: 09/07/24 Order Info: 0779-1 - MIACRE Order Info: [id number] - ALBU Performed By: #### L 501.9985, L502.0250, L500.4050 #### [facility] [address] [place], [address] MCV (RBC) [Entitic vol] 93.2 fL Normal 80-94 [facility] Comment on above: Order Comment: Order Date: 09/07/24 Order Info: 0779-1 - MIACRE Order Info: [id number] - ALBU Performed By: #### L 501.9985, L502.0250, L500.4050 #### [facility] [address] [place], [address] Monocytes/100 WBC (Bld) 8.9 % Normal 0-10 [facility] Comment on above: Order Comment: Order Date: 09/07/24 Order Info: 0779- - MIACRE Order Info: [id number] - ALBU Performed By: #### L 501.9985, L502.0250, L500.4050 #### [facility] [address] [place], [address] Neutrophils/100 WBC (Bld) 78.5 % High 47-70 [facility] Comment on above: Order Comment: Order Date: 09/07/24 Order Info: [id number]- - CRE Order Info: [id number] - ALBU Performed By: #### L 501.9985, L502.0250, L500.4050 #### [facility] [address] [place], [address] Nucleated RBC (Bld) [#/Vol] 0 10*3/uL Normal 0-5 [facility] Comment on above: Order Comment: Order Date: 09/07/24 Order Info: [id number]- - MIACRE Order Info: [id number] - ALBU Performed By: #### L 501.9985, L502.0250, L500.4050 #### [facility] [address] [place], [address] Platelet mean volume (Bld) [Entitic vol] 9.2 fL Normal 6.2-12.0 [facility] Comment on above: Order Comment: Order Date: 09/07/24 Order Info: 0779-1 - MIACRE Order Info: [id number] - ALBU Performed By: #### L 501.9985, L502.0250, L500.4050 #### [facility] [address] [place], [address] Platelets (Bld) [#/Vol] 316 10*3/uL Normal 150-450 [facility] Comment on above: Order Comment: Order Date: 09/07/24 Order Info: 0779- - MIACRE Order Info: [id number] - ALBU Performed By: #### L 501.9985, L502.0250, L500.4050 #### [facility] [address] [place], [address] RBC (Bld) [#/Vol] 4.73 10*6/uL Normal 4.6-6.2 [facility] Comment on above: Order Comment: Order Date: 09/07/24 Order Info: 0779-1 - MIACRE Order Info: [id number] - ALBU Performed By: #### L 501.9985, L502.0250, L500.4050 #### [facility] [address] [place], [address] RDW SD 45.5 fl High 35.1-43.9 [facility] Comment on above: Order Comment: Order Date: 09/07/24 Order Info: 0779-1 - MIACRE Order Info: [id number] - ALBU Performed By: #### L 501.9985, L502.0250, L500.4050 #### [facility] [address] [place], [address] WBC (Bld) [#/Vol] 7.7 10*3/uL Normal 4.4-11.0 [facility] Comment on above: Order Comment: Order Date: 09/07/24 Order Info: 0779 - MIACRE Order Info: [id number] - ALBU Performed By: #### L 501.9985, L502.0250, L500.4050 #### [facility] [address] [place], [address] Carbon dioxide measurementOr dered By: Gladis Nava on 09-10-2024 CO2 [Moles/Vol] 23.7 mmol/L 22.0-29.0 [facility] Chloride measurementOrdered By: Gladis Nava on 09-10-2024 Chloride [Moles/Vol] 104 mmol/L 96-108 [facility] Comprehensive Metabolic Prof ilon 09-10-2024 Albumin [Mass/Vol] 4.3 g/dL Normal 3.4-4.8 [facility] Comment on above: Order Comment: Order Date: 09/07/24 Order Info: [id number] - CRE Order Info: [id number] - ALBU Performed By: #### L 501.9985, L502.0250, L500.4050 #### [facility] [address] [place], [address] Albumin/Globulin [Mass ratio] 1.3 {ratio} Normal 0.9-2.4 [facility] Comment on above: Order Comment: Order Date: 09/07/24 Order Info: 0779 - CRE Order Info: [id number] - ALBU Performed By: #### L 501.9985, L502.0250, L500.4050 #### [facility] [address] [place], [address] ALK PHOS 64 U/L Normal 40-129 [facility] Comment on above: Order Comment: Order Date: 09/07/24 Order Info: 0779 - CRE Order Info: [id number] - ALBU Performed By: #### L 501.9985, L502.0250, L500.4050 #### [facility] [address] [place], [address] ALT [Catalytic activity/Vol] 18 U/L Normal <=46 [facility] Comment on above: Order Comment: Order Date: 09/07/24 Order Info: 0779 - MIACRE Order Info: [id number] - ALBU Performed By: #### L 501.9985, L502.0250, L500.4050 #### [facility] [address] [place], [address] Anion gap [Moles/Vol] 13 mmol/L Normal 5-15 [facility] Comment on above: Order Comment: Order Date: 09/07/24 Order Info: 0779 - MIACRE Order Info: [id number] - ALBU Performed By: #### L 501.9985, L502.0250, L500.4050 #### [facility] [address] [place], [address] AST [Catalytic activity/Vol] 22 U/L Normal <=37 [facility] Comment on above: Order Comment: Order Date: 09/07/24 Order Info: 0779 - MIACRE Order Info: [id number] - ALBU Performed By: #### L 501.9985, L502.0250, L500.4050 #### [facility] [address] [place], [address] Bilirubin [Mass/Vol] 0.55 mg/dL Normal 0.00-1.30 [facility] Comment on above: Order Comment: Order Date: 09/07/24 Order Info: 0779 - MIACRE Order Info: [id number] - ALBU Performed By: #### L 501.9985, L502.0250, L500.4050 #### [facility] [address] [place], [address] BUN/CRE 17.4 RATIO Normal 10-20 [facility] Comment on above: Order Comment: Order Date: 09/07/24 Order Info: 0779- - MIACRE Order Info: [id number] - ALBU Performed By: #### L 501.9985, L502.0250, L500.4050 #### [facility] [address] [place], [address] Calcium [Mass/Vol] 9.8 mg/dL Normal 7.6-11.0 [facility] Comment on above: Order Comment: Order Date: 09/07/24 Order Info: 0779-1 - MIACRE Order Info: [id number] - ALBU Performed By: #### L 501.9985, L502.0250, L500.4050 #### [facility] [address] [place], [address] Chloride [Moles/Vol] 104 mmol/L Normal 96-108 [facility] Comment on above: Order Comment: Order Date: 09/07/24 Order Info: 0779-1 - MIACRE Order Info: [id number] - ALBU Performed By: #### L 501.9985, L502.0250, L500.4050 #### [facility] [address] [place], [address] CO2 [Moles/Vol] 23.7 mmol/L Normal 22.0-29.0 [facility] Comment on above: Order Comment: Order Date: 09/07/24 Order Info: 0779-1 - MIACRE Order Info: [id number] - ALBU Performed By: #### L 501.9985, L502.0250, L500.4050 #### [facility] [address] [place], [address] Creatinine [Mass/Vol] 1.2 mg/dL Normal 0.8-1.3 [facility] Comment on above: Order Comment: Order Date: 09/07/24 Order Info: 0779-1 - MIACRE Order Info: [id number] - ALBU Performed By: #### L 501.9985, L502.0250, L500.4050 #### [facility] [address] [place], [address] GFR/1.73 sq M.predicted among non-blacks MDRD (S/P/Bld) [Vol rate/Area] 61 mL/min/{1.73_m2} Normal >60 [facility] Comment on above: Order Comment: Order Date: 09/07/24 Order Info: 0779-1 - MIACRE Order Info: [id number] - ALBU Result Comment: mL/m in/1.73m2 CKD-EPI Creatinine Equation (2020) Performed By: #### L 501.9985, L502.0250, L500.4050 #### [facility] [address] [place], [address] Globulin (S) [Mass/Vol] 3.5 g/dL Normal 2.2-4.2 [facility] Comment on above: Order Comment: Order Date: 09/07/24 Order Info: 0779- - MIACRE Order Info: [id number] - ALBU Performed By: #### L 501.9985, L502.0250, L500.4050 #### [facility] [address] [place], [address] Glucose [Mass/Vol] 131 mg/dL High 70-99 [facility] Comment on above: Order Comment: Order Date: 09/07/24 Order Info: 0779-1 - MIACRE Order Info: [id number] - ALBU Performed By: #### L 501.9985, L502.0250, L500.4050 #### [facility] [address] [place], [address] Potassium [Moles/Vol] 5.1 mmol/L Normal 3.3-5.1 [facility] Comment on above: Order Comment: Order Date: 09/07/24 Order Info: 0779- - MIACRE Order Info: [id number] - ALBU Performed By: #### L 501.9985, L502.0250, L500.4050 #### [facility] [address] [place], [address] Sodium [Moles/Vol] 141 mmol/L Normal 133-145 [facility] Comment on above: Order Comment: Order Date: 09/07/24 Order Info: 0779-1 - MIACRE Order Info: [id number] - ALBU Performed By: #### L 501.9985, L502.0250, L500.4050 #### [facility] [address] [place], [place], [id number] (111) T PROT 7.8 g/dL Normal 5.9-8.4 [facility] Comment on above: Order Comment: Order Date: 09/07/24 Order Info: 0779-1 - MIACRE Order Info: [id number] - ALBU Performed By: #### L 501.9985, L502.0250, L500.4050 #### [facility] [address] [place], [address] Urea nitrogen [Mass/Vol] 20 mg/dL High 4-19 [facility] Comment on above: Order Comment: Order Date: 09/07/24 Order Info: 0779-1 - MIACRE Order Info: [id number] - ALBU Performed By: #### L 501.9985, L502.0250, L500.4050 #### [facility] [address] [place], [address] Creatinine Unsp time (U) [Ma ss/Vol]Ordered By: Gladis Nava on 09-10-2024 Creatinine (U) [Mass/Vol] 111.00 mg/dL NO RANGE EST. [facility] Creatinine [Moles/Vol]Ordere d By: Gladis Nava on 09-10-2024 Creatinine [Mass/Vol] 1.2 mg/dL 0.8-1.3 [facility] Eosinophil percentageOrdered By: Gladis Nava on 09-10-2024 Eosinophils/100 WBC (Bld) 0.7 % 0-5 [facility] Erythrocyte distribution wid th ratioOrdered By: Gladis Nava on 09-10-2024 Erythrocyte distribution width (RBC) [Ratio] 13.4 % 11.6-14.6 [facility] Erythrocyte distribution wid th standard deviationOrdered By: Gladis Nava on 09-10-2024 Erythrocyte distribution width (RBC) [Entitic vol] 45.5 fL High 35.1-43.9 [facility] Erythrocyte distribution width (RBC) [Ratio] 45.5 fl High 35.1-43.9 [facility] GFR/1.73 sq M.predicted xander g non-blacks MDRD (S/P/Bld) [Vol rate/Area]Ordered By: Gladis Nava on 09-10-2024 Estimated GFR (MDRD) Non-Af Amer 61 >60 [facility] Comment on above: mL/min/1.73m2 CKD-EP I Creatinine Equation (2020) Glomerular filtration rate ( GFR) estimation/1.73 sq m using serum, plasma, or whole bOrdered By: Gladis Nava on 09-10-2024 GFR/1.73 sq M.predicted among non-blacks MDRD (S/P/Bld) [Vol rate/Area] 61 mL/min/{1.73_m2} >60 [facility] Comment on above: mL/min/1.73m2 CKD-EP I Creatinine Equation (2020) Hematocrit Auto (Bld) [Volum e fraction]Ordered By: Gladis Nava on 09-10-2024 Hematocrit (Bld) [Volume fraction] 44.1 % 40-54 [facility] Hemoglobin measurementOrdere d By: Gladis Nava on 09-10-2024 Hemoglobin (Bld) [Mass/Vol] 14.3 g/dL 13.0-16.5 [facility] Immature granulocytes/100 WB C Auto (Bld)Ordered By: Gladis Nava on 09-10-2024 Immature granulocytes/100 WBC (Bld) 0.400 % 0.0-0.9 [facility] Comment on above: IG% - Immature Granu locytes (promyelocytes, myelocytes and metamyelocytes) > 1% indicates that a LEFT SHIFT is Present. Laboratory - Chemistry and C hemistry - challengeOrdered By: Gladis Nava on 09-10-2024 AST [Catalytic activity/Vol] 22 U/L <38 [facility] Lymphocytes Auto (Unsp spec) [#/Vol]Ordered By: Gladis Nava on 02-27-2025 Lymphocytes (Bld) [#/Vol] 0.84 10*3/uL 0.83-4.51 [facility] Lymphocytes/100 WBC Auto (Un sp spec)Ordered By: Gladis Nava on 09-10-2024 Lymphocytes/100 WBC (Bld) 11.0 % Low 19-41 [facility] MCV (mean corpuscular volume ) determinationOrdered By: Gladis Nava on 09-10-2024 MCV (RBC) [Entitic vol] 93.2 fL 80-94 [facility] Mean corpuscular hemoglobin (MCH) determinationOrdered By: Gladis Nava on 09-10-2024 MCH (RBC) [Entitic mass] 30.2 pg 27.0-32.0 [facility] Mean corpuscular hemoglobin concentration (MCHC) determinationOrdered By: Gladis Nava on 09-10-2024 MCHC (RBC) [Mass/Vol] 32.4 g/dL 32-36 [facility] Mean platelet volume determi nationOrdered By: Gladis Nava on 09-10-2024 Platelet mean volume (Bld) [Entitic vol] 9.2 fL 6.2-12.0 [facility] Microalb:Creat Ratio,Random URon 09-10-2024 MALB:CREAT Normal [facility] Comment on above: Order Comment: Order Date: 09/07/24 Order Info: 0779-1 - MIACRE Order Info: [id number] - ALBU Result Comment: UNAB LE TO CALCULATE Performed By: #### L 501.9985, L502.0250, L500.4050 #### [facility] [address] [facility], [address] Microalbumin/creat ratio urO rdered By: Gladis Nava on 09-10-2024 Urine Microalbumin/Creatinine Ratio See comment [facility] Comment on above: UNABLE TO CALCULATE Monocyte percentageOrdered B y: Gladis Nava on 09-10-2024 Monocytes/100 WBC (Bld) 8.9 % 0-10 [facility] Neutrophil percentageOrdered By: Gladis Nava on 09-10-2024 Neutrophils/100 WBC (Bld) 78.5 % High 47-70 [facility] Nucleated red blood cell per centageOrdered By: Gladis Nava on 09-10-2024 Nucleated RBC/100 WBC (Bld) [Ratio] 0 % 0-5 [facility] Platelet countOrdered By: Robert Nava on 09-10-2024 Platelets (Bld) [#/Vol] 316 10*3/uL 150-450 [facility] RBC Auto (Bld) [#/Vol]Ordere d By: Gladis Nava on 09-10-2024 RBC (Bld) [#/Vol] 4.73 10*6/uL 4.6-6.2 [facility] Random urine creatinine alisson urement (mass/volume)Ordered By: Gladis Nava on 09-10-2024 Creatinine Unsp time (U) [Mass/Vol] 111.00 mg/dL NO RANGE EST. [facility] Re-Evaluation - PT (1)on Re-Evaluation - PT (1) [facility] Physical Therapy [facility] [address] [place] [address] [address] [place] [address] / REEVALUATION / MEDICARE RECERTIFICATION PHYSICAL THERAPY MR#: [id number] Acct: [id number] Name: CINDY COSTA Rep #: [id number] : 1940 84 From: Gladis Jones DPT, OCS, CSCS Referring Dr.: Dr. Gladis Nvaa MD Status:REG RCR Insurance: [employer] SELF PAY INSURANCE Re-Evaluation [...] wh walker at home. ZUses can at protestant. Feels like he needs more help family [...] Functional Score: 20 Goals Goals Goal 1:: 22/30 FGA to limit fall risk Goal Time [...] do not hesitate to contact me at [phone] by phone or if you have questions or concerns regarding this new plan of care! Sincerely, JAYSON AlasT, OCS, CSCS 09/10/24 1135 CC: Dr. Gladis Nava MD EBG Signed For Medicare only, by signing this I certify the plan of care. ____ Physicians Signature Date Normal [facility] Serum globulin measurementOr dered By: Gladis Nava on 09-10-2024 Globulin (S) [Mass/Vol] 3.5 g/dL 2.2-4.2 [facility] Serum glucose measurement (m ass/volume)Ordered By: Gladis Nava on 09-10-2024 Glucose [Mass/Vol] 131 mg/dL High 70-99 [facility] Serum or plasma alanine chawla otransferase (ALT) measurementOrdered By: Gladis Nava on 09-10-2024 ALT [Catalytic activity/Vol] 18 U/L <47 [facility] Serum or plasma albumin alisson urement (mass/volume)Ordered By: Gladis Nava on 09-10-2024 Albumin [Mass/Vol] 4.3 g/dL 3.4-4.8 [facility] Serum or plasma albumin/glob ulin mass ratioOrdered By: Gladis Nava on 09-10-2024 Albumin/Globulin [Mass ratio] 1.3 {ratio} 0.9-2.4 [facility] Serum or plasma alkaline sukh sphatase measurementOrdered By: Gladis Nava on 09-10-2024 ALP [Catalytic activity/Vol] 64 U/L 40-129 [facility] Serum or plasma anion gap de termination (moles/volume)Ordered By: Gladis Nava on 09-10-2024 Anion gap [Moles/Vol] 13 mmol/L 5-15 [facility] Serum or plasma calcium alisson urement (mass/volume)Ordered By: Gladis Nava on 09-10-2024 Calcium [Mass/Vol] 9.8 mg/dL 7.6-11.0 [facility] Serum or plasma creatinine m easurement (moles/volume)Ordered By: Gladis Nava on 09-10-2024 Creatinine [Moles/Vol] 1.2 mg/dL 0.8-1.3 [facility] Serum or plasma potassium me asurementOrdered By: Gladis Nava on 09-10-2024 Potassium [Moles/Vol] 5.1 mmol/L 3.3-5.1 [facility] Serum or plasma sodium measu rement (moles/volume)Ordered By: Gladis Nava on 09-10-2024 Sodium [Moles/Vol] 141 mmol/L 133-145 [facility] Serum or plasma urea nitroge n measurement (mass/volume)Ordered By: Gladis Nava on 09-10-2024 Urea nitrogen [Mass/Vol] 20 mg/dL High 4-19 [facility] Total proteinOrdered By: Danika Nava on 09-10-2024 Protein [Mass/Vol] 7.8 g/dL 5.9-8.4 [facility] Urine albumin measurement wi detection limit of 20 mg/L or less (mass/volume)Ordered By: Gladis Nava on 09-10-2024 Albumin DL <= 20 mg/L (U) [Mass/Vol] < 12.0 mg/L NO RANGE EST. [facility] White blood cell (WBC) count Ordered By: Gladis Nava on 09-10-2024 WBC (Bld) [#/Vol] 7.7 10*3/uL 4.4-11.0 [facility] Inital Evaluation (1) - PTon 08-19-2024 Inital Evaluation (1) - PT [facility] Physical Therapy [facility] [place] [address] / REHABILITATION SERVICES INITIAL EVALUATION MR#: [id number] Acct: [id number] Name: CINDY COSTA Rep #: [id number] : 1940 84 From: Gladis Jones DPT, OCS, CSCS Referring Dr.: Dr. Gladsi Nava MD Status: REG R CR Insurance: [facility] MEDICARE [employer] SELF PAY INSURANCE Patient's Visit Information Visit Information Visit Information: CINDY COSTA is a 84 year old M referred to Physical Therapy by Dr. Gladis Nava MD with a diagnosis of gait instability. Date of Evaluation: 08/19/24 Physical Therapist: Gladis Jones, DPT, OCS, CSCS Visit Plan Frequency: 3x [...] it. better since last week. Employed from [employer]. Spends day doing not a whole lot. [...] to be FAXED BACK to us at [phone] for Medicare purposes. For Medicare only, by signing this I certify the plan of care. Please let me know if there are questions or concerns regarding this plan of care. Physician Signature: Date: ____ 08/19/24 7182 CC: Dr. Gladis Nava MD EBG Signed Normal [facility] Hemoglobin A1con 08-14-2024 HbA1c (Bld) [Mass fraction] 9.3 % High 3.8-5.6 [facility] Comment on above: Order Comment: Order Date: 09/07/24 Order Info: 0786-1 - CMP Result Comment: Norm al < 5.7 % Prediabetic 5.7 - 6.4 % Diabetic >or= 6.5 % Please note range changes. Performed By: #### L 501.9985, L502.0250, L500.4050 #### [facility] [address] [place], [place], [id number] Absolute lymphocyte countOrd ered By: Gladis Nava on 08-13-2024 Lymphocytes Auto (Unsp spec) [#/Vol] 0.90 10*3/uL 0.83-4.51 [facility] Absolute neutrophil countOrd ered By: Gladis Nava on 08-13-2024 Neutrophils (Bld) [#/Vol] 6.3 10*3/uL 2.0-7.7 [facility] Albumin to globulin ratioOrd ered By: Gladis Nava on 08-13-2024 Albumin/Globulin [Mass ratio] 0.8 {ratio} Low 0.9-2.4 [facility] Automated lymphocyte count a s percentage of total leukocytesOrdered By: Gladis Nava on 08-13-2024 Lymphocytes/100 WBC Auto (Unsp spec) 11.1 % Low 19-41 [facility] Bacteria LM.HPF (Urine sed) [#/Area]Ordered By: Gladis Nava on 08-13-2024 Urine Bacteria RARE /hpf None Seen [facility] Basophil percentageOrdered B y: Gladis Nava on 08-13-2024 Basophils/100 WBC (Bld) 0.4 % 0-1 [facility] Bilirubin Test strip Ql (U)O rdered By: Gladis Nava on 08-13-2024 Bilirubin Ql (U) Negative Negative [facility] Bilirubin, totalOrdered By: Gladis Nava on 08-13-2024 Bilirubin [Mass/Vol] 0.60 mg/dL 0.20-1.00 [facility] Comment on above: For patients on eltr ombopag therapy, use of Dimension Ramah TBIL is not recommended. Blood urea nitrogen (BUN)/cr eatinine ratioOrdered By: Gladis Nava on 08-13-2024 Urea nitrogen/Creatinine [Mass ratio] 19.2 mg/mg 10- [facility] CBC W/Diff, Automatedon 07-17 Absolute Lymph 0.90 X10 3/uL Normal 0.83-4.51 [facility] Comment on above: Order Comment: Order Date: 08/13/24 Order Info: 0184-1 - CBCD Performed By: #### L 501.9520, L501.9985, L100.0100, L501.1200, L400.0001, L500.4050, L502.0500 #### [facility] [address] [place], [address] Absolute Neut 6.3 X10 3/uL Normal 2.0-7.7 [facility] Comment on above: Order Comment: Order Date: 08/13/24 Order Info: 0184-1 - CBCD Performed By: #### L 501.9520, L501.9985, L100.0100, L501.1200, L400.0001, L500.4050, L502.0500 #### [facility] [address] [place], [address] Basophils/100 WBC (Bld) 0.4 % Normal 0-1 [facility] Comment on above: Order Comment: Order Date: 08/13/24 Order Info: 0184-1 - CBCD Performed By: #### L 501.9520, L501.9985, L100.0100, L501.1200, L400.0001, L500.4050, L502.0500 #### [facility] [address] [place], [address] Eosinophils/100 WBC (Bld) 1.5 % Normal 0-5 [facility] Comment on above: Order Comment: Order Date: 08/13/24 Order Info: 0184-1 - CBCD Performed By: #### L 501.9520, L501.9985, L100.0100, L501.1200, L400.0001, L500.4050, L502.0500 #### [facility] [address] [place], [address] Erythrocyte distribution width (RBC) [Ratio] 12.5 % Normal 11.6-14.6 [facility] Comment on above: Order Comment: Order Date: 08/13/24 Order Info: 0184-1 - CBCD Performed By: #### L 501.9520, L501.9985, L100.0100, L501.1200, L400.0001, L500.4050, L502.0500 #### [facility] [address] [place], [address] Hematocrit (Bld) [Volume fraction] 45.1 % Normal 40-54 [facility] Comment on above: Order Comment: Order Date: 08/13/24 Order Info: 0184-1 - CBCD Performed By: #### L 501.9520, L501.9985, L100.0100, L501.1200, L400.0001, L500.4050, L502.0500 #### [facility] [address] [place], [address] Hemoglobin (Bld) [Mass/Vol] 14.6 g/dL Normal 13.0-16.5 [facility] Comment on above: Order Comment: Order Date: 08/13/24 Order Info: 0184-1 - CBCD Performed By: #### L 501.9520, L501.9985, L100.0100, L501.1200, L400.0001, L500.4050, L502.0500 #### [facility] [address] [place], [address] IG% 0.200 Normal 0.0-0.9 [facility] Comment on above: Order Comment: Order Date: 08/13/24 Order Info: 0184-1 - CBCD Result Comment: IG% - Immature Granulocytes (promyelocytes, myelocytes and metamyelocytes) > 1% indicates that a LEFT SHIFT is Present. Performed By: #### L 501.9520, L501.9985, L100.0100, L501.1200, L400.0001, L500.4050, L502.0500 #### [facility] [address] [place], [address] Lymphocytes/100 WBC (Bld) 11.1 % Low 19-41 [facility] Comment on above: Order Comment: Order Date: 08/13/24 Order Info: 0184-1 - CBCD Performed By: #### L 501.9520, L501.9985, L100.0100, L501.1200, L400.0001, L500.4050, L502.0500 #### [facility] [address] [place], [place], [phone] (954) MCH (RBC) [Entitic mass] 29.4 pg Normal 27.0-32.0 [facility] Comment on above: Order Comment: Order Date: 08/13/24 Order Info: 0184-1 - CBCD Performed By: #### L 501.9520, L501.9985, L100.0100, L501.1200, L400.0001, L500.4050, L502.0500 #### [facility] [address] [place], [address] MCHC (RBC) [Mass/Vol] 32.4 g/dL Normal 32-36 [facility] Comment on above: Order Comment: Order Date: 08/13/24 Order Info: 0184-1 - CBCD Performed By: #### L 501.9520, L501.9985, L100.0100, L501.1200, L400.0001, L500.4050, L502.0500 #### [facility] [address] [place], [place], [address] (682) MCV (RBC) [Entitic vol] 90.7 fL Normal 80-94 [facility] Comment on above: Order Comment: Order Date: 08/13/24 Order Info: 0184-1 - CBCD Performed By: #### L 501.9520, L501.9985, L100.0100, L501.1200, L400.0001, L500.4050, L502.0500 #### [facility] [address] [place], [address] Monocytes/100 WBC (Bld) 9.4 % Normal 0-10 [facility] Comment on above: Order Comment: Order Date: 08/13/24 Order Info: 0184-1 - CBCD Performed By: #### L 501.9520, L501.9985, L100.0100, L501.1200, L400.0001, L500.4050, L502.0500 #### [facility] [address] [place], [place], [phone] (832) Neutrophils/100 WBC (Bld) 77.4 % High 47-70 [facility] Comment on above: Order Comment: Order Date: 08/13/24 Order Info: 0184-1 - CBCD Performed By: #### L 501.9520, L501.9985, L100.0100, L501.1200, L400.0001, L500.4050, L502.0500 #### [facility] [address] [place], [address] Nucleated RBC (Bld) [#/Vol] 0 10*3/uL Normal 0-5 [facility] Comment on above: Order Comment: Order Date: 08/13/24 Order Info: 0184-1 - CBCD Performed By: #### L 501.9520, L501.9985, L100.0100, L501.1200, L400.0001, L500.4050, L502.0500 #### [facility] [address] [place], [address] Platelet mean volume (Bld) [Entitic vol] 9.2 fL Normal 6.2-12.0 [facility] Comment on above: Order Comment: Order Date: 08/13/24 Order Info: 0184-1 - CBCD Performed By: #### L 501.9520, L501.9985, L100.0100, L501.1200, L400.0001, L500.4050, L502.0500 #### [facility] [address] [place], [address] Platelets (Bld) [#/Vol] 348 10*3/uL Normal 150-450 [facility] Comment on above: Order Comment: Order Date: 08/13/24 Order Info: 0184-1 - CBCD Performed By: #### L 501.9520, L501.9985, L100.0100, L501.1200, L400.0001, L500.4050, L502.0500 #### [facility] [address] [place], [address] RBC (Bld) [#/Vol] 4.97 10*6/uL Normal 4.6-6.2 [facility] Comment on above: Order Comment: Order Date: 08/13/24 Order Info: 0184-1 - CBCD Performed By: #### L 501.9520, L501.9985, L100.0100, L501.1200, L400.0001, L500.4050, L502.0500 #### [facility] [address] [place], [address] RDW SD 41.1 fl Normal 35.1-43.9 [facility] Comment on above: Order Comment: Order Date: 08/13/24 Order Info: 0184-1 - CBCD Performed By: #### L 501.9520, L501.9985, L100.0100, L501.1200, L400.0001, L500.4050, L502.0500 #### [facility] [address] [place], [address] WBC (Bld) [#/Vol] 8.1 10*3/uL Normal 4.4-11.0 [facility] Comment on above: Order Comment: Order Date: 08/13/24 Order Info: 0184-1 - CBCD Performed By: #### L 501.9520, L501.9985, L100.0100, L501.1200, L400.0001, L500.4050, L502.0500 #### [facility] [address] [place], [address] Carbon dioxide measurementOr dered By: Gladis Nava on 08-13-2024 CO2 [Moles/Vol] 30.0 mmol/L 21.0-32.0 [facility] Chloride measurementOrdered By: Gladis Nava on 08-13-2024 Chloride [Moles/Vol] 97 mmol/L Low 98-107 [facility] Comprehensive Metabolic Prof ilon 08-13-2024 Albumin [Mass/Vol] 3.6 g/dL Normal 3.2-5.0 [facility] Comment on above: Order Comment: Order Date: 08/10/24 Order Info: 0667-1 - BMP Order Date: 08/13/24 Order Info: 0786-1 - CMP Order Info: 3016-3 - TSH Performed By: #### L 501.9520, L501.9985, L100.0100, L501.1200, L400.0001, L500.4050, L502.0500 #### [facility] [address] [facility] [place], [place], [id number] Albumin/Globulin [Mass ratio] 0.8 {ratio} Low 0.9-2.4 [facility] Comment on above: Order Comment: Order Date: 08/10/24 Order Info: 0667-1 - BMP Order Date: 08/13/24 Order Info: 0786-1 - CMP Order Info: 3016-3 - TSH Performed By: #### L 501.9520, L501.9985, L100.0100, L501.1200, L400.0001, L500.4050, L502.0500 #### [facility] [address] [place], [address] ALK P 79 U/L Normal 45-117 [facility] Comment on above: Order Comment: Order Date: 08/10/24 Order Info: 0667-1 - BMP Order Date: 08/13/24 Order Info: 0786-1 - CMP Order Info: 301-3 - TSH Performed By: #### L 501.9520, L501.9985, L100.0100, L501.1200, L400.0001, L500.4050, L502.0500 #### [facility] [address] [place], [address] ALT [Catalytic activity/Vol] 29 U/L Normal 16-61 [facility] Comment on above: Order Comment: Order Date: 08/10/24 Order Info: 0667-1 - BMP Order Date: 08/13/24 Order Info: 0786- - [facility] Order Info: 30163 - TSH Performed By: #### L 501.9520, L501.9985, L100.0100, L501.1200, L400.0001, L500.4050, L502.0500 #### [facility] [address] [place], [address] AST [Catalytic activity/Vol] 11 U/L Low 15-37 [facility] Comment on above: Order Comment: Order Date: 08/10/24 Order Info: 0667-1 - BMP Order Date: 08/13/24 Order Info: 0786-1 - [facility] Order Info: 3016-3 - TSH Performed By: #### L 501.9520, L501.9985, L100.0100, L501.1200, L400.0001, L500.4050, L502.0500 #### [facility] [address] [place], [address] Bilirubin [Mass/Vol] 0.60 mg/dL Normal 0.20-1.00 [facility] Comment on above: Order Comment: Order Date: 08/10/24 Order Info: 666- - BMP Order Date: 08/13/24 Order Info: 785-07 - CMP Order Info: 3015-09 - TSH Result Comment: For patients on eltrombopag therapy, use of Dimension Ramah TBIL is not recommended. Performed By: #### L 501.9520, L501.9985, L100.0100, L501.1200, L400.0001, L500.4050, L502.0500 #### [facility] [address] [place], [address] BUN/CRE 19.2 RATIO Normal 10-20 [facility] Comment on above: Order Comment: Order Date: 08/10/24 Order Info: 666-07 - BMP Order Date: 08/13/24 Order Info: 785-07 - [facility] Order Info: 3015-09 - TSH Performed By: #### L 501.9520, L501.9985, L100.0100, L501.1200, L400.0001, L500.4050, L502.0500 #### [facility] [address] [place], [place], [id number] CA,Total 9.7 mg/dL Normal 8.5-10.1 [facility] Comment on above: Order Comment: Order Date: 08/10/24 Order Info: 666-07 - BMP Order Date: 08/13/24 Order Info: 07 - CMP Order Info: 3015-09 - TSH Performed By: #### L 501.9520, L501.9985, L100.0100, L501.1200, L400.0001, L500.4050, L502.0500 #### [facility] [address] [place], [place], [id number] Chloride [Moles/Vol] 97 mmol/L Low 98-107 [facility] Comment on above: Order Comment: Order Date: 08/10/24 Order Info: 06- - BMP Order Date: 08/13/24 Order Info: 07 - CMP Order Info: 3015-09 - TSH Performed By: #### L 501.9520, L501.9985, L100.0100, L501.1200, L400.0001, L500.4050, L502.0500 #### [facility] [address] [place], [address] CO2 [Moles/Vol] 30.0 mmol/L Normal 21.0-32.0 [facility] Comment on above: Order Comment: Order Date: 08/10/24 Order Info: 0667- - BMP Order Date: 08/13/24 Order Info: 0786-1 - CMP Order Info: 3015-09 - TSH Performed By: #### L 501.9520, L501.9985, L100.0100, L501.1200, L400.0001, L500.4050, L502.0500 #### [facility] [address] [place], [address] Creatinine [Mass/Vol] 1.51 mg/dL High 0.70-1.30 [facility] Comment on above: Order Comment: Order Date: 08/10/24 Order Info: 0667- - BMP Order Date: 08/13/24 Order Info: 0786 - CMP Order Info: 3015-09 - TSH Result Comment: The validity of the calculated GFR GFRAA in patients over 70 years has not been determined. Clinical correlation is essential. Performed By: #### L 501.9520, L501.9985, L100.0100, L501.1200, L400.0001, L500.4050, L502.0500 #### [facility] [address] [place], [address] EST GFR - AA 57 mL/min Low >60 [facility] Comment on above: Order Comment: Order Date: 08/10/24 Order Info: 0667-1 - BMP Order Date: 08/13/24 Order Info: 0786-1 - CMP Order Info: 3015-3 - TSH Result Comment: Afri can Moldovan GFR Calc Performed By: #### L 501.9520, L501.9985, L100.0100, L501.1200, L400.0001, L500.4050, L502.0500 #### [facility] [address] [place], [place], [address] GAP 7 Normal 5-15 [facility] Comment on above: Order Comment: Order Date: 08/10/24 Order Info: 0667- - BMP Order Date: 08/13/24 Order Info: 0786- - CMP Order Info: 3013 - TSH Performed By: #### L 501.9520, L501.9985, L100.0100, L501.1200, L400.0001, L500.4050, L502.0500 #### [facility] [address] [place], [place], [address] GFR/1.73 sq M.predicted among non-blacks MDRD (S/P/Bld) [Vol rate/Area] 47 mL/min/{1.73_m2} Low >60 [facility] Comment on above: Order Comment: Order Date: 08/10/24 Order Info: 666- - BMP Order Date: 08/13/24 Order Info: 07 - CMP Order Info: 3 - TSH Result Comment: Non- GFR Calc Performed By: #### L 501.9520, L501.9985, L100.0100, L501.1200, L400.0001, L500.4050, L502.0500 #### [facility] [address] [place], [place], [id number] Globulin (S) [Mass/Vol] 4.5 g/dL High 2.2-4.2 [facility] Comment on above: Order Comment: Order Date: 08/10/24 Order Info: 0667- - BMP Order Date: 08/13/24 Order Info: 0786- - CMP Order Info: 3013 - TSH Performed By: #### L 501.9520, L501.9985, L100.0100, L501.1200, L400.0001, L500.4050, L502.0500 #### [facility] [address] [place], [address] Glucose [Mass/Vol] 334 mg/dL High 74-106 [facility] Comment on above: Order Comment: Order Date: 08/10/24 Order Info: 0667-1 - BMP Order Date: 08/13/24 Order Info: 0786- - [facility] Order Info: 3015-3 - TSH Result Comment: Gluc ose result greater than or equal to 200 mg/dL suggests DIABETES MELLITUS per A.D.A. criteria. Performed By: #### L 501.9520, L501.9985, L100.0100, L501.1200, L400.0001, L500.4050, L502.0500 #### [facility] [address] [place], [address] Potassium [Moles/Vol] 4.9 mmol/L Normal 3.5-5.1 [facility] Comment on above: Order Comment: Order Date: 08/10/24 Order Info: 0667-1 - BMP Order Date: 08/13/24 Order Info: 0786- - [facility] Order Info: 3 - TSH Performed By: #### L 501.9520, L501.9985, L100.0100, L501.1200, L400.0001, L500.4050, L502.0500 #### [facility] [address] [place], [address] Sodium [Moles/Vol] 134 mmol/L Low 136-145 [facility] Comment on above: Order Comment: Order Date: 08/10/24 Order Info: 0667-1 - BMP Order Date: 08/13/24 Order Info: 0786- - [facility] Order Info: 3 - TSH Performed By: #### L 501.9520, L501.9985, L100.0100, L501.1200, L400.0001, L500.4050, L502.0500 #### [facility] [address] [place], [place], [address] T PROT 8.1 g/dL Normal 6.4-8.2 [facility] Comment on above: Order Comment: Order Date: 08/10/24 Order Info: 0667-1 - BMP Order Date: 08/13/24 Order Info: 0786-1 - CMP Order Info: 3016-3 - TSH Performed By: #### L 501.9520, L501.9985, L100.0100, L501.1200, L400.0001, L500.4050, L502.0500 #### [facility] [address] [place], [place], [id number] Urea nitrogen [Mass/Vol] 29 mg/dL High 7-18 [facility] Comment on above: Order Comment: Order Date: 08/10/24 Order Info: 0667-1 - BMP Order Date: 08/13/24 Order Info: 0786-1 - [facility] Order Info: 3016-3 - TSH Performed By: #### L 501.9520, L501.9985, L100.0100, L501.1200, L400.0001, L500.4050, L502.0500 #### [facility] [address] [place], [place], [id number] Creatinine, Urine (random)on 08-13-2024 UR CREAT 171.00 mg/dL Normal NO RANGE EST. [facility] Comment on above: Order Comment: Order Date: 08/13/24 Order Info: 2161-8 - CREATU Order Info: 58656-8 - ALBU Performed By: #### L 501.9520, L501.9985, L100.0100, L501.1200, L400.0001, L500.4050, L502.0500 #### [facility] [address] [place], [place], [id number] Eosinophil percentageOrdered By: Gladis Nava on 08-13-2024 Eosinophils/100 WBC (Bld) 1.5 % 0-5 [facility] Epithelial cells.renal LM.HP F (Urine sed) [#/Area]Ordered By: Gladis Nava on 08-13-2024 Urine Renal Epithelial Cells 0-5 SEEN /hpf 0-5 [facility] Epithelial cells.squamous LM Ql (Urine sed)Ordered By: Gladis Nava on 08-13-2024 Epithelial cells.squamous LM.HPF (Urine sed) [#/Area] 5 /[HPF] 0-5 [facility] Erythrocyte distribution wid th ratioOrdered By: Gladis Nava on 08-13-2024 Erythrocyte distribution width (RBC) [Ratio] 12.5 % 11.6-14.6 [facility] Erythrocyte distribution wid th standard deviationOrdered By: Gladis Nava on 08-13-2024 Erythrocyte distribution width (RBC) [Entitic vol] 41.1 fL 35.1-43.9 [facility] [facility] Erythrocyte distribution width (RBC) [Ratio] 41.1 fl 35.1-43.9 [facility] Estimated glomerular filtrat ion rate (GFR) AmericanOrdered By: Gladis Nava on 08-13-2024 Estimated GFR (MDRD) Amer 57 mL/min Low >60 [facility] Comment on above: GFR Calc Glomerular filtration rate ( GFR) estimationOrdered By: Gladis Nava on 08-13-2024 Estimated GFR (MDRD) Non-Af Amer 47 mL/min Low >60 [facility] Comment on above: Non- GFR Calc GFR/1.73 sq M.predicted among non-blacks MDRD (S/P/Bld) [Vol rate/Area] 47 mL/min/{1.73_m2} Low >60 [facility] Comment on above: Non- GFR Calc Glucose Ql (U)Ordered By: Robert Nava on 08-13-2024 Glucose (U) [Mass/Vol] 1000 mg/dL High Normal [facility] Glucose measurementOrdered B y: Gladis Nava on 08-13-2024 Glucose [Mass/Vol] 334 mg/dL High 74-106 [facility] Comment on above: Glucose result great er than or equal to 200 mg/dLsuggests DIABETES MELLITUS per A.D.A. criteria. Hematocrit Auto (Bld) [Volum e fraction]Ordered By: Gladis Nava on 08-13-2024 Hematocrit (Bld) [Volume fraction] 45.1 % 40-54 [facility] Hemoglobin A1c percentageOrd ered By: Gladis Nava on 08-13-2024 HbA1c (Bld) [Mass fraction] 9.3 % High 3.8-5.6 [facility] Comment on above: Normal < 5.7 % Predi abetic 5.7 - 6.4 % Diabetic >or= 6.5 % Please note range changes. Hemoglobin measurementOrdere d By: Gladis Nava on 08-13-2024 Hemoglobin (Bld) [Mass/Vol] 14.6 g/dL 13.0-16.5 [facility] Immature granulocytes/100 WB C Auto (Bld)Ordered By: Gladis Nava on 08-13-2024 Immature granulocytes/100 WBC (Bld) 0.200 % 0.0-0.9 [facility] Comment on above: IG% - Immature Granu locytes (promyelocytes, myelocytes and metamyelocytes) > 1% indicates that a LEFT SHIFT is Present. Ketones Test strip Ql (U)Ord ered By: Gladis Nava on 08-13-2024 Ketones Ql (U) 5 mg/dl High Negative [facility] Laboratory - Chemistry and C hemistry - challengeOrdered By: Gladis Nava on 08-13-2024 AST [Catalytic activity/Vol] 11 U/L Low 15-37 [facility] Lymphocytes Auto (Unsp spec) [#/Vol]Ordered By: Gladis Nava on 08-13-2024 Lymphocytes (Bld) [#/Vol] 0.90 10*3/uL 0.83-4.51 [facility] Lymphocytes/100 WBC Auto (Un sp spec)Ordered By: Gladis Nava on 08-13-2024 Lymphocytes/100 WBC (Bld) 11.1 % Low 19-41 [facility] MCV (mean corpuscular volume ) determinationOrdered By: Gladis Nava on 08-13-2024 MCV (RBC) [Entitic vol] 90.7 fL 80-94 [facility] Mean corpuscular hemoglobin (MCH) determinationOrdered By: Gladis Nava on 08-13-2024 MCH (RBC) [Entitic mass] 29.4 pg 27.0-32.0 [facility] Mean corpuscular hemoglobin concentration (MCHC) determinationOrdered By: Gladis Nava on 08-13-2024 MCHC (RBC) [Mass/Vol] 32.4 g/dL 32-36 [facility] Mean platelet volume determi nationOrdered By: Gladis Nava on 08-13-2024 Platelet mean volume (Bld) [Entitic vol] 9.2 fL 6.2-12.0 [facility] Microalbumin,Random Urineon 08-13-2024 MICROALBUMIN,UR 20.9 mg/L Normal NO RANGE EST. [facility] Comment on above: Order Comment: Order Date: 08/13/24 Order Info: [id number] - CREATU Order Info: [id number] - ALBU Performed By: #### L [id number], L501.9985, L100.0100, L501.1200, L400.0001, L500.4050, L502.0500 #### [facility] [place], [address] Microscopic analysis of urin e for red blood cells (RBC)Ordered By: Gladis Nava on 08-13-2024 Microscopic analysis of urine for red blood cells (RBC) 0-5 SEEN /hpf 0-5 [facility] Urine RBC 0-5 SEEN /hpf 0-5 [facility] Monocyte percentageOrdered B y: Gladis Nava on 08-13-2024 Monocytes/100 WBC (Bld) 9.4 % 0-10 [facility] Mucus LM Ql (Urine sed)Order ed By: Gladis Nava on 08-13-2024 Mucus Ql (Urine sed) 0 SEEN /hpf [facility] Neutrophil percentageOrdered By: Gladis Nava on 08-13-2024 Neutrophils/100 WBC (Bld) 77.4 % High 47-70 [facility] Nitrite Test strip Ql (U)Ord ered By: Gladis Nava on 08-13-2024 Nitrite Ql (U) Negative Negative [facility] Nucleated red blood cell per centageOrdered By: Gladis Nava on 08-13-2024 Nucleated RBC/100 WBC (Bld) [Ratio] 0 % 0-5 [facility] Platelet countOrdered By: Robert Nava on 08-13-2024 Platelets (Bld) [#/Vol] 348 10*3/uL 150-450 [facility] Potassium measurementOrdered By: Gladis Nava on 08-13-2024 Potassium [Moles/Vol] 4.9 mmol/L 3.5-5.1 [facility] Protein Test strip Ql (U)Ord ered By: Gladis Nava on 08-13-2024 Protein Ql (U) 15 mg/dl High Negative [facility] RBC Auto (Bld) [#/Vol]Ordere d By: Gladis Nava on 08-13-2024 RBC (Bld) [#/Vol] 4.97 10*6/uL 4.6-6.2 [facility] Random urine microalbumin me asurementOrdered By: Gladis Nava on 08-13-2024 Urine Random Microalbumin 20.9 mg/L NO RANGE EST. [facility] Serum anion gap measurementO rdered By: Gladis Nava on 08-13-2024 Anion gap [Moles/Vol] 7 mmol/L 5-15 [facility] Serum globulin measurementOr dered By: Gladis Nava on 08-13-2024 Globulin (S) [Mass/Vol] 4.5 g/dL High 2.2-4.2 [facility] Serum or plasma alanine chawla otransferase (ALT) measurementOrdered By: Gladis Nava on 08-13-2024 ALT [Catalytic activity/Vol] 29 U/L 16-61 [facility] Serum or plasma albumin alisson urement (mass/volume)Ordered By: Gladis Nava on 08-13-2024 Albumin [Mass/Vol] 3.6 g/dL 3.2-5.0 [facility] Serum or plasma alkaline sukh sphatase measurementOrdered By: Gladis Nava on 08-13-2024 ALP [Catalytic activity/Vol] 79 U/L 45-117 [facility] Serum or plasma calcium alisson urement (mass/volume)Ordered By: Gladis Nava on 08-13-2024 Calcium [Mass/Vol] 9.7 mg/dL 8.5-10.1 [facility] Serum or plasma creatinine m easurement (mass/volume)Ordered By: Gladis Nava on 08-13-2024 Creatinine [Mass/Vol] 1.51 mg/dL High 0.70-1.30 [facility] Comment on above: The validity of the calculated GFR & GFRAA in patients over 70 years has not been determined. Clinical correlation is essential. Serum or plasma thyroid stim ulating hormone (TSH) measurement (units/volume)Ordered By: Galdis Nava on 08-13-2024 TSH Qn 0.773 uIU/mL 0.358-3.740 [facility] Serum or plasma urea nitroge n measurement (mass/volume)Ordered By: Gladis Nava on 08-13-2024 Urea nitrogen [Mass/Vol] 29 mg/dL High 7-18 [facility] Sodium levelOrdered By: Gladis Nava on 08-13-2024 Sodium [Moles/Vol] 134 mmol/L Low 136-145 [facility] Squamous epithelial cells de tection in urine sediment by light microscopyOrdered By: Gladis Nava on 08-13-2024 Epithelial cells.squamous LM Ql (Urine sed) 5-10 SEEN /hpf 0-5 [facility] TSH QnOrdered By: Gladis Nava on 08-13-2024 Thyroid Stimulating Hormone (TSH) 0.773 uIU/mL 0.358-3.740 [facility] Thyroid Stim Hormone (TSH)on 08-13-2024 TSH 0.773 uIU/mL Normal 0.358-3.740 [facility] Comment on above: Order Comment: Order Date: 08/10/24 Order Info: [id number] - BMP Order Date: 08/13/24 Order Info: [id number] - CMP Order Info: [id number] - TSH Performed By: #### L [id number], L501.9985, L100.0100, L501.1200, L400.0001, L500.4050, L502.0500 #### [facility] [address] [facility] [place], [address] Total proteinOrdered By: Danika Nava on 08-13-2024 Protein [Mass/Vol] 8.1 g/dL 6.4-8.2 [facility] Urinalysis, Completeon 08-13 BACTERIA RARE Normal None Seen [facility] Comment on above: Order Comment: Order Date: 08/13/24 Order Info: [id number] [facility] [employer] TO SPECIFY Performed By: #### L [id number], L501.9985, L100.0100, L501.1200, L400.0001, L500.4050, L502.0500 #### [facility] [address] [place], [place], [address] [phone] EPI,RENAL 0-5 SEEN Normal 0-5 [facility] Comment on above: Order Comment: Order Date: 08/13/24 Order Info: [id number] [employer] TO SPECIFY Performed By: #### L [id number], [id number], L100.0100, L501.1200, L400.0001, L500.4050, L502.0500 #### [facility] [address] [place], [place], [address] [phone]) EPI,SQUAMOUS 5-10 SEEN Normal 0-5 [facility] Comment on above: Order Comment: Order Date: 08/13/24 Order Info: [id number] [facility] [employer] TO SPECIFY Performed By: #### L [id number], [id number], L100.0100, L501.1200, L400.0001, L500.4050, L502.0500 #### [facility] [address] [place], [place], [address] [phone] RBC 0-5 SEEN Normal 0-5 [facility] Comment on above: Order Comment: Order Date: 08/13/24 Order Info: [id number] [facility] [employer] TO SPECIFY Performed By: #### L [id number], [id number], L100.0100, L501.1200, L400.0001, L500.4050, L502.0500 #### [facility] [address] [place] [address] [place], [address] WBC 10-25 SEEN Normal 0-5 [facility] Comment on above: Order Comment: Order Date: 08/13/24 Order Info: [id number] [facility] [employer] TO SPECIFY Performed By: #### L [id number], [id number], L100.0100, L501.1200, L400.0001, L500.4050, L502.0500 #### [facility] [address] [place], [address] Mucus Ql (Urine sed) 0 SEEN Normal [facility] Comment on above: Order Comment: Order Date: 08/13/24 Order Info: [id number] - [facility] [employer]SE[employer] TO SPECIFY Performed By: #### L [id number], [id number], L100.0100, L501.1200, L400.0001, L500.4050, L502.0500 #### [facility] [address] [place], [place], [address] Urine blood detectionOrdered By: Gladis Nava on 08-13-2024 Urine Occult Blood 10 /ul High Negative [facility] Urine clarityOrdered By: Danika Nava on 08-13-2024 Clarity (U) Clear Clear [facility] Urine color determinationOrd ered By: Gladis Nava on 08-13-2024 Color (U) Yellow Yellow [facility] Urine creatinine measurement (mass/volume)Ordered By: Gladis Nava on 08-13-2024 Creatinine (U) [Mass/Vol] 171.00 mg/dL NO RANGE EST. [facility] Urine glucose detectionOrder ed By: Gladis Nava on 08-13-2024 Glucose Ql (U) 1000 mg/dl High Normal [facility] Urine leukocyte esterase det ection by dipstickOrdered By: Gladis Nava on 08-13-2024 Leukocyte esterase Test strip Ql (U) 500 /ul High Negative [facility] Urine pHOrdered By: Gladis higuera on 08-13-2024 pH (U) 6.0 [pH] 5.0 - 8.0 [facility] Urine sediment bacteria coun t by microscopy (number/high power field)Ordered By: Gladis Nava on 08-13-2024 Bacteria LM.HPF (Urine sed) [#/Area] RARE /hpf None Seen [facility] Urine sediment renal epithel ial cell count by microscopy (number/high power field)Ordered By: Gladis Nava on 08-13-2024 Epithelial cells.renal LM.HPF (Urine sed) [#/Area] 0 /[HPF] 0-5 [facility] Urine specific gravity measu rementOrdered By: Gladis Nava on 08-13-2024 Specific gravity (U) [Rel density] 1.015 1.002-1.030 [facility] Urine urobilinogen measureme ntOrdered By: Gladis Nava on 08-13-2024 Urobilinogen Ql (U) Normal mg/dl Normal [facility] Urobilinogen Ql (U)Ordered B y: Gladis Nava on 08-13-2024 Urine Urobilinogen Normal mg/dl Normal [facility] White blood cell (WBC) count Ordered By: Gladis Nava on 08-13-2024 WBC (Bld) [#/Vol] 8.1 10*3/uL 4.4-11.0 [facility] White blood cell countOrdere d By: Gladis Nava on 08-13-2024 Urine WBC 10-25 SEEN /hpf 0-5 [facility] White blood cell count 10-25 SEEN /hpf 0-5 [facility] Urine Cultureon 08-07-2024 [facility] Order Date: 08/06/24 Order Info: [id number] - CUUR Mixed Gram Pos Gram Neg Org [place] Count 1000-10,000 MIXC Mixed contaminants. Submit a new specimen if indicated. Normal [facility] Comment on above: Performed By: #### L [id number], L502.0250, L500.4050 #### [facility] [address] [place] [address], [address] Bilirubin Test strip Ql (U)O rdered By: Gladis Nava on 08-06-2024 Bilirubin Ql (U) Negative Negative [facility] Epithelial cells.squamous LM Ql (Urine sed)Ordered By: Gladis Nava on 08-06-2024 Epithelial cells.squamous LM.HPF (Urine sed) [#/Area] 0 /[HPF] 0-5 [facility] Glucose Ql (U)Ordered By: Robert Nava on 08-06-2024 Glucose (U) [Mass/Vol] 1000 mg/dL High Normal [facility] Ketones Test strip Ql (U)Ord ered By: Gladis Nava on 08-06-2024 Ketones Ql (U) Negative Negative [facility] Microscopic analysis of urin e for red blood cells (RBC)Ordered By: Gladis Nava on 08-06-2024 Microscopic analysis of urine for red blood cells (RBC) 0-5 SEEN /hpf 0-5 [facility] Urine RBC 0-5 SEEN /hpf 0-5 [facility] Mucus LM Ql (Urine sed)Order ed By: Gladis Nava on 08-06-2024 Mucus Ql (Urine sed) 0 SEEN /hpf [facility] Nitrite Test strip Ql (U)Ord ered By: Gladis Nava on 08-06-2024 Nitrite Ql (U) Negative Negative [facility] Protein Test strip Ql (U)Ord ered By: Gladis Nava on 08-06-2024 Protein Ql (U) Negative Negative [facility] Squamous epithelial cells de tection in urine sediment by light microscopyOrdered By: Gladis Nava on 08-06-2024 Epithelial cells.squamous LM Ql (Urine sed) 0-5 SEEN /hpf 0-5 [facility] Urinalysis, Completeon 08-06 EPI,SQUAMOUS 0-5 SEEN Normal 0-5 [facility] Comment on above: Order Comment: Order Date: 09/07/24 Order Info: [id number] - MIACRE Order Info: [id number] - ALBU Performed By: #### L [id number], L502.0250, L500.4050 #### [facility] [address] [place], [address] RBC 0-5 SEEN Normal 0-5 [facility] Comment on above: Order Comment: Order Date: 09/07/24 Order Info: [id number] - MIACRE Order Info: [id number] - ALBU Performed By: #### L [id number], L502.0250, L500.4050 #### [facility] [address] [place], [address] WBC 10-25 SEEN Normal 0-5 [facility] Comment on above: Order Comment: Order Date: 09/07/24 Order Info: [id number] - MIACRE Order Info: [id number] - ALBU Performed By: #### L 501.9985, L502.0250, L500.4050 #### [facility] [address] [place], [address] BACTERIA 1+ /hpf Normal None Seen [facility] Comment on above: Order Comment: Order Date: 09/07/24 Order Info: [id number] - MIACRE Order Info: [id number] - ALBU Performed By: #### L 501.9985, L502.0250, L500.4050 #### [facility] [address] [place], [address] YEAST 1+ /hpf Normal None Seen [facility] Comment on above: Order Comment: Order Date: 09/07/24 Order Info: [id number] - MIACRE Order Info: [id number] - ALBU Performed By: #### L 501.9985, L502.0250, L500.4050 #### [facility] [address] [place], [address] Mucus Ql (Urine sed) 0 SEEN Normal [facility] Comment on above: Order Comment: Order Date: 09/07/24 Order Info: [id number] - MIACRE Order Info: [id number] - ALBU Performed By: #### L [id number], L502.0250, L500.4050 #### [facility] [address] [place], [address] Urine blood detectionOrdered By: Gladis Nava on 08-06-2024 Urine Occult Blood 10 /ul High Negative [facility] Urine clarityOrdered By: Danika Nava on 08-06-2024 Clarity (U) Sl. Cloudy Clear [facility] Urine color determinationOrd ered By: Gladis Nava on 08-06-2024 Color (U) Yellow Yellow [facility] Urine cultureOrdered By: Danika Nava on 08-06-2024 Bacteria identified Cx Nom (U) Mixed Gram Pos & Gram Neg Org Abnormal [facility] Urine glucose detectionOrder ed By: Gladis Nava on 08-06-2024 Glucose Ql (U) 1000 mg/dl High Normal [facility] Urine leukocyte esterase det ection by dipstickOrdered By: Gladis Nava on 08-06-2024 Leukocyte esterase Test strip Ql (U) 500 /ul High Negative [facility] Urine pHOrdered By: Gladis higuera on 08-06-2024 pH (U) 6.0 [pH] 5.0 - 8.0 [facility] Urine sediment bacteria coun t by microscopy (number/high power field)Ordered By: Gladis Nava on 08-06-2024 Bacteria LM.HPF (Urine sed) [#/Area] 1 /[HPF] None Seen [facility] Urine sediment yeast count b y microscopy (number/high powered field)Ordered By: Gladis Nava on 08-06-2024 Yeast LM.HPF (Urine sed) [#/Area] 1 /[HPF] None Seen [facility] Urine specific gravity measu rementOrdered By: Gladis Nava on 08-06-2024 Specific gravity (U) [Rel density] 1.005 1.002-1.030 [facility] Urine urobilinogen measureme ntOrdered By: Gladis Nava on 08-06-2024 Urobilinogen Ql (U) Normal mg/dl Normal [facility] Urobilinogen Ql (U)Ordered B y: Gladis Nava on 08-06-2024 Urine Urobilinogen Normal mg/dl Normal [facility] White blood cell countOrdere d By: Gladis Nava on 08-06-2024 Urine WBC 10-25 SEEN /hpf 0-5 [facility] White blood cell count 10-25 SEEN /hpf 0-5 [facility] Yeast LM.HPF (Urine sed) [#/ Area]Ordered By: Gladis Nava on 08-06-2024 Urine Yeast 1+ /hpf None Seen [facility] Protein Electroph, Son 07-29 Albumin [Mass/Vol] 3.6 g/dL Normal 2.9-4.4 [facility] Comment on above: Order Comment: Order Date: 09/07/24 Order Info: [id number] - MIACRE Order Info: [id number] - ALBU Performed By: #### L [id number], L502.0250, L500.4050 #### [facility] [address] [place], [address] Albumin/Globulin [Mass ratio] 1.0 {ratio} Normal 0.7-1.7 [facility] Comment on above: Order Comment: Order Date: 09/07/24 Order Info: [id number] - MIACRE Order Info: [id number] - ALBU Performed By: #### L 501.9985, L502.0250, L500.4050 #### [facility] [address] [place], [address] ALPHA-1 GLOBUL 0.2 g/dL Normal 0.0-0.4 [facility] Comment on above: Order Comment: Order Date: 09/07/24 Order Info: [id number] - MIACRE Order Info: [id number] - ALBU Performed By: #### L 501.9985, L502.0250, L500.4050 #### [facility] [address] [place], [address] ALPHA-2 GLOBUL 0.9 g/dL Normal 0.4-1.0 [facility] Comment on above: Order Comment: Order Date: 09/07/24 Order Info: [id number] - MIACRE Order Info: [id number] - ALBU Performed By: #### L 501.9985, L502.0250, L500.4050 #### [facility] [address] [place], [address] BETA GLOBULIN 1.2 g/dL Normal 0.7-1.3 [facility] Comment on above: Order Comment: Order Date: 09/07/24 Order Info: [id number] - MIACRE Order Info: [id number] - ALBU Performed By: #### L 501.9985, L502.0250, L500.4050 #### [facility] [address] [place], [address] GAMMA GLOBULIN 1.2 g/dL Normal 0.4-1.8 [facility] Comment on above: Order Comment: Order Date: 09/07/24 Order Info: [id number] - MIACRE Order Info: [id number] - ALBU Performed By: #### L 501.9985, L502.0250, L500.4050 #### [facility] [address] [place], [place], [address] Globulin (S) [Mass/Vol] 3.5 g/dL Normal 2.2-3.9 [facility] Comment on above: Order Comment: Order Date: 09/07/24 Order Info: [id number] - MIACRE Order Info: [id number] - ALBU Performed By: #### L 501.9985, L502.0250, L500.4050 #### [facility] [address] [place], [place], [id number] INTERPRETATION Comment Normal . [facility] Comment on above: Order Comment: Order Date: 09/07/24 Order Info: [id number] - MIACRE Order Info: [id number] - ALBU Result Comment: Prot ein electrophoresis scan will follow via computer, mail, or head mixer delivery. Performed By: #### L 501.9985, L502.0250, L500.4050 #### [facility] [address] [place], [address] M-SPIKE Not Observed Normal Not Observed [facility] Comment on above: Order Comment: Order Date: 09/07/24 Order Info: [id number] - MIACRE Order Info: [id number] - ALBU Performed By: #### L 501.9985, L502.0250, L500.4050 #### [facility] [address] [place], [address] NOTE: Comment Normal . [facility] Comment on above: Order Comment: Order Date: 09/07/24 Order Info: [id number] - MIACRE Order Info: [id number] - ALBU Result Comment: The SPE pattern appears unremarkable. Evidence of monoclonal protein is not apparent. Performed at: [facility] [address] [place], [place] [id number] Computer Education Teacher: Kike Alfaro PhD, Phone: [phone] Performed By: #### L 501.9985, L502.0250, L500.4050 #### [facility] [address] [place], [place], [id number] Protein [Mass/Vol] 7.1 g/dL Normal 6.0-8.5 [facility] Comment on above: Order Comment: Order Date: 09/07/24 Order Info: [id number] - MIACRE Order Info: [id number] - ALBU Performed By: #### L 501.9985, L502.0250, L500.4056 #### [facility] [address] [place], [place], [id number] Absolute lymphocyte countOrd ered By: Gladis Nava on 07-28-2024 Lymphocytes Auto (Unsp spec) [#/Vol] 0.61 10*3/uL Low 0.83-4.51 [facility] Absolute neutrophil countOrd ered By: Gladis Nava on 07-28-2024 Neutrophils (Bld) [#/Vol] 7.0 10*3/uL 2.0-7.7 [facility] Addendum DocumentOrdered By: Gladis Nava on 07-28-2024 Protein Electrophoresis Note Comment . [facility] Comment on above: The SPE pattern appe ars unremarkable. Evidence ofmonoclonal protein is not apparent.Performed at: [facility], [place] [id number] Director: Kike Alfaro PhD, Phone: [phone] Albumin Elph [Mass/Vol]Order ed By: Gladis Nava on 07-28-2024 Albumin [Mass/Vol] 3.6 g/dL 2.9-4.4 [facility] Albumin to globulin ratioOrd ered By: Gladis Nava on 07-28-2024 Albumin/Globulin [Mass ratio] 1.0 {ratio} 0.9-2.4 [facility] Albumin/Globulin Elph [Mass ratio]Ordered By: Gladis Nava on 07-28-2024 Albumin/Globulin (PEP) 1.0 0.7-1.7 [facility] Vmadn-8-tvsisqsk measurement by protein electrophoresisOrdered By: Gladis Nava on 07-28-2024 Bwyiu-8-Mhduaydxg 0.2 g/dL 0.0-0.4 [facility] Qjsdn-4-awcnnfgy measurement by protein electrophoresisOrdered By: Gladis Nava on 07-28-2024 Mlgdi-5-Ofahjbzkp 0.9 g/dL 0.4-1.0 [facility] Automated lymphocyte count a s percentage of total leukocytesOrdered By: Gladis Nava on 07-28-2024 Lymphocytes/100 WBC Auto (Unsp spec) 7.5 % Low 19-41 [facility] BNP (brain natriuretic pepti de measurement)Ordered By: Gladis Nava on 07-28-2024 Natriuretic peptide B (Bld) [Mass/Vol] 54.8 pg/mL 0-100 [facility] BNP,B-Type NATRIURETIC PEPTI Rodolfo 07-28-2024 Natriuretic peptide B (Bld) [Mass/Vol] 54.8 pg/mL Normal 0-100 [facility] Comment on above: Performed By: #### L 501.9985, L502.0250, L500.4050 #### [facility] [place], [address] Basophil percentageOrdered B y: Gladis Nava on 07-28-2024 Basophils/100 WBC (Bld) 0.2 % 0-1 [facility] Beta globulin Elph [Mass/Vol ]Ordered By: Gladis Nava on 07-28-2024 Beta Globulins 1.2 g/dL 0.7-1.3 [facility] Administration Bilirubin, totalOrdered By: Gladis Nava on 07-28-2024 Bilirubin [Mass/Vol] 0.50 mg/dL 0.20-1.00 [facility] Comment on above: For patients on eltr ombopag therapy, use of Dimension [place] TBIL is not recommended. Blood urea nitrogen (BUN)/cr eatinine ratioOrdered By: Gladis Nava on 07-28-2024 Urea nitrogen/Creatinine [Mass ratio] 18.7 mg/mg 10-20 [facility] C-reactive protein measureme nt by high sensitivity methodOrdered By: Gladis Nava on 07-28-2024 C-Reactive Protein Extended Range 3.14 mg/L High 0.0-3.0 [facility] Comment on above: C-Reactive Protein ( CRP) provides useful information for thediagnosis, therapy and monitoring of inflammatory processesand associated diseases. For the evaluation of Relative Riskfor Cardiovascular Disease, a High Sensitivity CRP (HSCRP)should be ordered. C-reactive protein measurement by high sensitivity method 3.14 mg/L High 0.0-3.0 [facility] Comment on above: C-Reactive Protein ( CRP) provides useful information for thediagnosis, therapy and monitoring of inflammatory processesand associated diseases. For the evaluation of Relative Riskfor Cardiovascular Disease, a High Sensitivity CRP (HSCRP)should be ordered. CBC W/Diff, Automatedon 07-15 Absolute Lymph 0.61 X10 3/uL Low 0.83-4.51 [facility] Comment on above: Order Comment: Order Date: 09/07/24 Order Info: 0786-1 - CMP Performed By: #### L 501.9985, L502.0250, L500.4050 #### [facility] [address] [place], [address] Absolute Neut 7.0 X10 3/uL Normal 2.0-7.7 [facility] Comment on above: Order Comment: Order Date: 09/07/24 Order Info: 0786-1 - CMP Performed By: #### L 501.9985, L502.0250, L500.4050 #### [facility] [address] [place], [address] Basophils/100 WBC (Bld) 0.2 % Normal 0-1 [facility] Comment on above: Order Comment: Order Date: 09/07/24 Order Info: 0786-1 - CMP Performed By: #### L 501.9985, L502.0250, [id number] #### [facility] [address] [place], [address] Eosinophils/100 WBC (Bld) 0.1 % Normal 0-5 [facility] Comment on above: Order Comment: Order Date: 09/07/24 Order Info: 0786-1 - CMP Performed By: #### L 501.9985, L502.0250, [id number] #### [facility] [address] [place], [address] Erythrocyte distribution width (RBC) [Ratio] 12.8 % Normal 11.6-14.6 [facility] Comment on above: Order Comment: Order Date: 09/07/24 Order Info: 0786-1 - CMP Performed By: #### L 501.9985, L502.0250, L500.4050 #### [facility] [address] [place], [address] Hematocrit (Bld) [Volume fraction] 41.8 % Normal 40-54 [facility] Comment on above: Order Comment: Order Date: 09/07/24 Order Info: 0786-1 - CMP Performed By: #### L 501.9985, L502.0250, L500.4050 #### [facility] [address] [place], [address] Hemoglobin (Bld) [Mass/Vol] 14.4 g/dL Normal 13.0-16.5 [facility] Comment on above: Order Comment: Order Date: 09/07/24 Order Info: 0786-1 - CMP Performed By: #### L 501.9985, L502.0250, L500.4050 #### [facility] [address] [place], [address] IG% 0.500 Normal 0.0-0.9 [facility] Comment on above: Order Comment: Order Date: 09/07/24 Order Info: 0786-1 - CMP Result Comment: IG% - Immature Granulocytes (promyelocytes, myelocytes and metamyelocytes) > 1% indicates that a LEFT SHIFT is Present. Performed By: #### L 501.9985, L502.0250, L500.4050 #### [facility] [address] [place], [address] Lymphocytes/100 WBC (Bld) 7.5 % Low 19-41 [facility] Comment on above: Order Comment: Order Date: 09/07/24 Order Info: 0786-1 - CMP Performed By: #### L 501.9985, L502.0250, [id number] #### [facility] [address] [place], [address] MCH (RBC) [Entitic mass] 30.8 pg Normal 27.0-32.0 [facility] Comment on above: Order Comment: Order Date: 09/07/24 Order Info: 0786-1 - CMP Performed By: #### L 501.9985, L502.0250, L500.4050 #### [facility] [address] [place], [address] MCHC (RBC) [Mass/Vol] 34.4 g/dL Normal 32-36 [facility] Comment on above: Order Comment: Order Date: 09/07/24 Order Info: 0786-1 - CMP Performed By: #### L 501.9985, L502.0250, L500.4050 #### [facility] [address] [place], [address] MCV (RBC) [Entitic vol] 89.3 fL Normal 80-94 [facility] Comment on above: Order Comment: Order Date: 09/07/24 Order Info: 0786-1 - CMP Performed By: #### L 501.9985, L502.0250, L500.4050 #### [facility] [address] [place], [address] Monocytes/100 WBC (Bld) 6.3 % Normal 0-10 [facility] Comment on above: Order Comment: Order Date: 09/07/24 Order Info: 0786-1 - CMP Performed By: #### L 501.9985, L502.0250, L500.4050 #### [facility] [address] [place], [address] Neutrophils/100 WBC (Bld) 85.4 % High 47-70 [facility] Comment on above: Order Comment: Order Date: 09/07/24 Order Info: 0786-1 - CMP Performed By: #### L 501.9985, L502.0250, [id number] #### [facility] [address] [place], [address] Nucleated RBC (Bld) [#/Vol] 0 10*3/uL Normal 0-5 [facility] Comment on above: Order Comment: Order Date: 09/07/24 Order Info: 0786-1 - CMP Performed By: #### L 501.9985, L502.0250, L500.4050 #### [facility] [address] [place], [address] Platelet mean volume (Bld) [Entitic vol] 8.7 fL Normal 6.2-12.0 [facility] Comment on above: Order Comment: Order Date: 09/07/24 Order Info: 0786-1 - CMP Performed By: #### L 501.9985, L502.0250, L500.4050 #### [facility] [address] [place], [address] Platelets (Bld) [#/Vol] 323 10*3/uL Normal 150-450 [facility] Comment on above: Order Comment: Order Date: 09/07/24 Order Info: 0786-1 - CMP Performed By: #### L 501.9985, L502.0250, L500.4050 #### [facility] [address] [place], [address] RBC (Bld) [#/Vol] 4.68 10*6/uL Normal 4.6-6.2 [facility] Comment on above: Order Comment: Order Date: 09/07/24 Order Info: 0786-1 - CMP Performed By: #### L 501.9985, L502.0250, L500.4050 #### [facility] [address] [place], [address] RDW SD 41.8 fl Normal 35.1-43.9 [facility] Comment on above: Order Comment: Order Date: 09/07/24 Order Info: 0786-1 - CMP Performed By: #### L 501.9985, L502.0250, L500.4050 #### [facility] [address] [place], [address] WBC (Bld) [#/Vol] 8.2 10*3/uL Normal 4.4-11.0 [facility] Comment on above: Order Comment: Order Date: 09/07/24 Order Info: 0786-1 - CMP Performed By: #### L 501.9985, L502.0250, L500.4050 #### [facility] [address] [place], [address] CRPon 07-28-2024 C-REACTIVE PROT 3.14 mg/L High 0.0-3.0 [facility] Comment on above: Order Comment: Order Date: 09/07/24 Order Info: 0786-1 - CMP Result Comment: C-Re active Protein (CRP) provides useful information for the diagnosis, therapy and monitoring of inflammatory processes and associated diseases. For the evaluation of Relative Risk for Cardiovascular Disease, a High Sensitivity CRP (HSCRP) should be ordered. Performed By: #### L 501.9985, L502.0250, L500.4050 #### [facility] [address] [place], [address] CTA Chest W/WO Contraston CTA Chest W/WO Contrast [facility] Imaging Services [address] [place] [address] CTA Chest W/WO Contrast MR#: [id number] Acct: [id number] Name: CINDY COSTA Rep #: [id number] : 1940 M 84 From: Yury Henry MD PCP: Dr. Gladis Nava MD Status: REG ER Study: CTA Chest W/WO Contrast Date of Exam: 07/28/24 Exam# [id number] Ordering Dr: Jaya Quick DO [id number] STUDY: CTA CHEST REASON FOR EXAM: Male, [...] Signed: Yury Henry MD at 16:28 EST , CC: Dr. Gladis Nava MD; Dr. Jaya Quick DO Project Management It Specialist: Signed Normal [facility] Carbon dioxide measurementOr dered By: Gladis Nava on 07-28-2024 CO2 [Moles/Vol] 24.0 mmol/L 21.0-32.0 [facility] Chloride measurementOrdered By: Gladis Nava on 07-28-2024 Chloride [Moles/Vol] 102 mmol/L 98-107 [facility] Comprehensive Metabolic Prof ilon 07-28-2024 Albumin [Mass/Vol] 3.8 g/dL Normal 3.2-5.0 [facility] Comment on above: Order Comment: Order Date: 09/07/24 Order Info: 0786-1 - CMP Performed By: #### L 501.9985, L502.0250, L500.4050 #### [facility] [address] [place], [address] Albumin/Globulin [Mass ratio] 1.0 {ratio} Normal 0.9-2.4 [facility] Comment on above: Order Comment: Order Date: 09/07/24 Order Info: 0786-1 - CMP Performed By: #### L 501.9985, L502.0250, L500.4050 #### [facility] [address] [place], [address] ALK P 64 U/L Normal 45-117 [facility] Comment on above: Order Comment: Order Date: 09/07/24 Order Info: 0786-1 - CMP Performed By: #### L 501.9985, L502.0250, L500.4050 #### [facility] [address] [place], [address] ALT [Catalytic activity/Vol] 24 U/L Normal 16-61 [facility] Comment on above: Order Comment: Order Date: 09/07/24 Order Info: 0786-1 - CMP Performed By: #### L 501.9985, L502.0250, L500.4050 #### [facility] [address] [place], [address] AST [Catalytic activity/Vol] 12 U/L Low 15-37 [facility] Comment on above: Order Comment: Order Date: 09/07/24 Order Info: 0786-1 - CMP Performed By: #### L 501.9985, L502.0250, L500.4050 #### [facility] [address] [place], [address] Bilirubin [Mass/Vol] 0.50 mg/dL Normal 0.20-1.00 [facility] Comment on above: Order Comment: Order Date: 09/07/24 Order Info: 0786-1 - CMP Result Comment: For patients on eltrombopag therapy, use of Dimension Ramah TBIL is not recommended. Performed By: #### L 501.9985, L502.0250, L500.4050 #### [facility] [address] [place], [address] BUN/CRE 18.7 RATIO Normal 10-20 [facility] Comment on above: Order Comment: Order Date: 09/07/24 Order Info: 0786-1 - CMP Performed By: #### L 501.9985, L502.0250, L500.4050 #### [facility] [address] [place], [address] CA,Total 9.3 mg/dL Normal 8.5-10.1 [facility] Comment on above: Order Comment: Order Date: 09/07/24 Order Info: 0786-1 - CMP Performed By: #### L 501.9985, L502.0250, L500.4050 #### [facility] [address] [place], [address] Chloride [Moles/Vol] 102 mmol/L Normal 98-107 [facility] Comment on above: Order Comment: Order Date: 09/07/24 Order Info: 0786-1 - CMP Performed By: #### L 501.9985, L502.0250, L500.4050 #### [facility] [address] [place], [address] CO2 [Moles/Vol] 24.0 mmol/L Normal 21.0-32.0 [facility] Comment on above: Order Comment: Order Date: 09/07/24 Order Info: 0786- - CMP Performed By: #### L 501.9985, L502.0250, L500.4050 #### [facility] [address] [place], [address] Creatinine [Mass/Vol] 1.07 mg/dL Normal 0.70-1.30 [facility] Comment on above: Order Comment: Order Date: 09/07/24 Order Info: 0786- - CMP Result Comment: The validity of the calculated GFR GFRAA in patients over 70 years has not been determined. Clinical correlation is essential. Performed By: #### L 501.9985, L502.0250, L500.4050 #### [facility] [address] [place], [address] EST GFR - AA 84 mL/min Normal >60 [facility] Comment on above: Order Comment: Order Date: 09/07/24 Order Info: 0786- - CMP Result Comment: Afri can Moldovan GFR Calc Performed By: #### L 501.9985, L502.0250, L500.4050 #### [facility] [address] [place], [address] GAP 7 Normal 5-15 [facility] Comment on above: Order Comment: Order Date: 09/07/24 Order Info: 0786- - CMP Performed By: #### L 501.9985, L502.0250, L500.4050 #### [facility] [address] [place], [address] GFR/1.73 sq M.predicted among non-blacks MDRD (S/P/Bld) [Vol rate/Area] 70 mL/min/{1.73_m2} Normal >60 [facility] Comment on above: Order Comment: Order Date: 09/07/24 Order Info: 0786-1 - CMP Result Comment: Non- GFR Calc Performed By: #### L 501.9985, L502.0250, L500.4050 #### [facility] [address] [place], [address] Globulin (S) [Mass/Vol] 4.0 g/dL Normal 2.2-4.2 [facility] Comment on above: Order Comment: Order Date: 09/07/24 Order Info: 0786-1 - CMP Performed By: #### L 501.9985, L502.0250, L500.4050 #### [facility] [address] [place], [address] Glucose [Mass/Vol] 244 mg/dL High 74-106 [facility] Comment on above: Order Comment: Order Date: 09/07/24 Order Info: 0786-1 - CMP Result Comment: Gluc ose result greater than or equal to 200 mg/dL suggests DIABETES MELLITUS per A.D.A. criteria. Performed By: #### L 501.9985, L502.0250, L500.4050 #### [facility] [address] [place], [address] Potassium [Moles/Vol] 4.1 mmol/L Normal 3.5-5.1 [facility] Comment on above: Order Comment: Order Date: 09/07/24 Order Info: 0786-1 - CMP Performed By: #### L 501.9985, L502.0250, L500.4050 #### [facility] [address] [place], [address] Sodium [Moles/Vol] 132 mmol/L Low 136-145 [facility] Comment on above: Order Comment: Order Date: 09/07/24 Order Info: 0786-1 - CMP Performed By: #### L 501.9985, L502.0250, L500.4050 #### [facility] [address] [place], [address] T PROT 7.8 g/dL Normal 6.4-8.2 [facility] Comment on above: Order Comment: Order Date: 09/07/24 Order Info: 0786-1 - CMP Performed By: #### L 501.9985, L502.0250, L500.4050 #### [facility] [address] [place], [address] Urea nitrogen [Mass/Vol] 20 mg/dL High 7-18 [facility] Comment on above: Order Comment: Order Date: 09/07/24 Order Info: 0786-1 - CMP Performed By: #### L 501.9985, L502.0250, L500.4050 #### [facility] [address] [place], [place], [address] D-Dimer Quantitative (DVT/PE )on 07-28-2024 D-DIMER QUANT 1.04 FEU/ug/m Invalid Interpretation Code 0.27-0.49 [facility] Comment on above: Order Comment: Order Date: 09/07/24 Order Info: 0786-1 - CMP Result Comment: D-Di kevin ELEVATED (>0.49): Additional studies and clinical assessments are indicated to conclude diagnosis of: Deep Vein Thrombosis (DVT) or Pulmonary Embolism (PE) CRITICAL VALUE CALLED TO RIGOBERTO 07/28/24 Dion Chandra. RESULTS READ BACK BY SAME. Performed By: #### L 501.9985, L502.0250, L500.4050 #### [facility] [address] [place], [address] D-dimer measurement for deep venous thrombosisOrdered By: Gladis Nava on 07-28-2024 D-Dimer Quantitative (PE/DVT) 1.04 FEU/ug/m High 0.27-0.49 [facility] Comment on above: D-Dimer ELEVATED (>0 .49): Additional studies and clinicalassessments are indicated to conclude diagnosis of:Deep Vein Thrombosis (DVT) or Pulmonary Embolism (PE)CRITICAL VALUE CALLED TO [id number]/14/25 1343 Mahsa Chandra.RESULTS READ BACK BY SAME. Emergency Department Summary on 07-28-2024 Emergency Department Summary [facility] Medical Records Department [address] [place] [address] Emergency Department Summary 07/28/24 MR#: [id number] Acct: [id number] Name: CINDY COSTA Rep #: [id number] : 1940 84 From: Jaya Quick DO [...] not on any blood thinning medications currently. [facility] Medical History Pulmonary hypertension DVT (deep venous [...] following commands knew that he was at [facility] year is 2023 Skin: Warm, dry, intact Const Vital Signs: 07/28/24 15:00 07/28/24 15:50 07/28/24 16:18 Temperature 97.2 F L Temperature Source Temporal Pulse Rate 86 90 Respiratory Rate 16 16 Respiratory Effort Normal Non-Labored Respiratory Pattern N (more content not included)... Normal [facility] Eosinophil percentageOrdered By: Gladis Nava on 07-28-2024 Eosinophils/100 WBC (Bld) 0.1 % 0-5 [facility] Erythrocyte Sed Rateon 07-28 SED RATE 29 mm/hr High 0-20 [facility] Comment on above: Order Comment: Order Date: 09/07/24 Order Info: 0786-1 - CMP Performed By: #### L 501.9985, L502.0250, L500.4050 #### [facility] [address] [place], [address] Erythrocyte distribution wid th ratioOrdered By: Gladis Nava on 07-28-2024 Erythrocyte distribution width (RBC) [Ratio] 12.8 % 11.6-14.6 [facility] Erythrocyte distribution wid th standard deviationOrdered By: Gladis Nava on 07-28-2024 Erythrocyte distribution width (RBC) [Entitic vol] 41.8 fL 35.1-43.9 [facility] Erythrocyte distribution width (RBC) [Ratio] 41.8 fl 35.1-43.9 [facility] Erythrocyte sedimentation ra teOrdered By: Gladis Nava on 07-28-2024 ESR (Bld) [Velocity] 29 mm/h High 0-20 [facility] Estimated glomerular filtrat ion rate (GFR) AmericanOrdered By: Gladis Nava on 07-28-2024 Estimated GFR (MDRD) Amer 84 mL/min >60 [facility] Comment on above: GFR Calc Gamma globulin measurement b y protein electrophoresisOrdered By: Gladis Nava on 07-28-2024 Gamma Globulins 1.2 g/dL 0.4-1.8 [facility] Globulin (S) [Mass/Vol]Order ed By: Gladis Nava on 07-28-2024 Globulin (PEP) 3.5 g/dL 2.2-3.9 [facility] Glomerular filtration rate ( GFR) estimationOrdered By: Gladis Nava on 07-28-2024 Estimated GFR (MDRD) Non-Af Amer 70 mL/min >60 [facility] Comment on above: Non- GFR Calc GFR/1.73 sq M.predicted among non-blacks MDRD (S/P/Bld) [Vol rate/Area] 70 mL/min/{1.73_m2} >60 [facility] Comment on above: Non- GFR Calc Glucose measurementOrdered B y: Gladis Nava on 07-28-2024 Glucose [Mass/Vol] 244 mg/dL High 74-106 [facility] Comment on above: Glucose result great er than or equal to 200 mg/dLsuggests DIABETES MELLITUS per A.D.A. criteria. Hematocrit Auto (Bld) [Volum e fraction]Ordered By: Gladis Nava on 07-28-2024 Hematocrit (Bld) [Volume fraction] 41.8 % 40-54 [facility] Hemoglobin measurementOrdere d By: Gladis Nava on 07-28-2024 Hemoglobin (Bld) [Mass/Vol] 14.4 g/dL 13.0-16.5 [facility] Immature granulocytes/100 WB C Auto (Bld)Ordered By: Gladis Nava on 07-28-2024 Immature granulocytes/100 WBC (Bld) 0.500 % 0.0-0.9 [facility] Comment on above: IG% - Immature Granu locytes (promyelocytes, myelocytes and metamyelocytes) > 1% indicates that a LEFT SHIFT is Present. Laboratory - Chemistry and C hemistry - challengeOrdered By: Gladis Nava on 01-14-2025 AST [Catalytic activity/Vol] 12 U/L Low 15-37 [facility] Lymphocytes Auto (Unsp spec) [#/Vol]Ordered By: Gladis Nava on 07-28-2024 Lymphocytes (Bld) [#/Vol] 0.61 10*3/uL Low 0.83-4.51 [facility] Lymphocytes/100 WBC Auto (Un sp spec)Ordered By: Gladis Nava on 07-28-2024 Lymphocytes/100 WBC (Bld) 7.5 % Low 19-41 [facility] MCV (mean corpuscular volume ) determinationOrdered By: Gladis Nava on 07-28-2024 MCV (RBC) [Entitic vol] 89.3 fL 80-94 [facility] Mean corpuscular hemoglobin (MCH) determinationOrdered By: Gladis Nava on 07-28-2024 MCH (RBC) [Entitic mass] 30.8 pg 27.0-32.0 [facility] Mean corpuscular hemoglobin concentration (MCHC) determinationOrdered By: Gladis Nava on 07-28-2024 MCHC (RBC) [Mass/Vol] 34.4 g/dL 32-36 [facility] Mean platelet volume determi nationOrdered By: Gladis Nava on 07-28-2024 Platelet mean volume (Bld) [Entitic vol] 8.7 fL 6.2-12.0 [facility] Monocyte percentageOrdered B y: Gladis Nava on 07-28-2024 Monocytes/100 WBC (Bld) 6.3 % 0-10 [facility] Neutrophil percentageOrdered By: Gladis Nava on 07-28-2024 Neutrophils/100 WBC (Bld) 85.4 % High 47-70 [facility] No Panel InformationOrdered By: Gladis Nava on 07-28-2024 Addendum Document Comment . [facility] Comment on above: The SPE pattern appe ars unremarkable. Evidence ofmonoclonal protein is not apparent.Performed at: [address] [id number] Director: Kike Alfaro PhD, Phone: [phone] Nucleated red blood cell per centageOrdered By: Gladis Nava on 07-28-2024 Nucleated RBC/100 WBC (Bld) [Ratio] 0 % 0-5 [facility] Platelet countOrdered By: Robert Nava on 07-28-2024 Platelets (Bld) [#/Vol] 323 10*3/uL 150-450 [facility] Potassium measurementOrdered By: Gladis Nava on 07-28-2024 Potassium [Moles/Vol] 4.1 mmol/L 3.5-5.1 [facility] Protein Fractions Elph [Inte rp]Ordered By: Gladis Nava on 07-28-2024 Protein Electrophoresis Interpret Comment . [facility] Comment on above: Protein electrophore sis scan will follow via computer,mail, or head mixer delivery. Protein Fractions [Interp] Comment . [facility] Comment on above: Protein electrophore sis scan will follow via computer,mail, or head mixer delivery. Protein.monoclonal Elph [Mas s/Vol]Ordered By: Gladis Nava on 07-28-2024 Protein Electrophoresis M-Fam Not Observed g/dL Not Observed [facility] RBC Auto (Bld) [#/Vol]Ordere d By: Gladis Nava on 07-28-2024 RBC (Bld) [#/Vol] 4.68 10*6/uL 4.6-6.2 [facility] Serum albumin to globulin ra beto by protein electrophoresisOrdered By: Gladis Nava on 07-28-2024 Albumin/Globulin Elph [Mass ratio] 1.0 0.7-1.7 [facility] Serum anion gap measurementO rdered By: Gladis Nava on 07-28-2024 Anion gap [Moles/Vol] 7 mmol/L 5-15 [facility] Serum globulin measurementOr dered By: Gladis Nava on 07-28-2024 Globulin (S) [Mass/Vol] 4.0 g/dL 2.2-4.2 [facility] Serum globulin measurement ( mass/volume)Ordered By: Gladis Nava on 07-28-2024 Globulin (S) [Mass/Vol] 3.5 g/dL 2.2-3.9 [facility] Serum or plasma alanine chawla otransferase (ALT) measurementOrdered By: Glaids Nava on 07-28-2024 ALT [Catalytic activity/Vol] 24 U/L 16-61 [facility] Serum or plasma albumin alisson urement (mass/volume)Ordered By: Gladis Nava on 07-28-2024 Albumin [Mass/Vol] 3.8 g/dL 3.2-5.0 [facility] Serum or plasma alkaline sukh sphatase measurementOrdered By: Gladis Nava on 07-28-2024 ALP [Catalytic activity/Vol] 64 U/L 45-117 [facility] Serum or plasma beta globuli n measurement by electrophoresis (mass/volume)Ordered By: Gladis Nava on 07-28-2024 Beta globulin Elph [Mass/Vol] 1.2 g/dL 0.7-1.3 [facility] Serum or plasma calcium alisson urement (mass/volume)Ordered By: Gladis Nava on 07-28-2024 Calcium [Mass/Vol] 9.3 mg/dL 8.5-10.1 [facility] Serum or plasma creatinine m easurement (mass/volume)Ordered By: Gladis Nava on 07-28-2024 Creatinine [Mass/Vol] 1.07 mg/dL 0.70-1.30 [facility] Comment on above: The validity of the calculated GFR & GFRAA in patients over 70 years has not been determined. Clinical correlation is essential. Serum or plasma protein alisson urement (mass/volume)Ordered By: Gladis Nava on 07-28-2024 Protein [Mass/Vol] 7.1 g/dL 6.0-8.5 [facility] Serum or plasma protein mono clonal measurement by electrophoresis (mass/volume)Ordered By: Gladis Nava on 07-28-2024 Protein.monoclonal Elph [Mass/Vol] Not Observed g/dL Not Observed [facility] Serum or plasma urea nitroge n measurement (mass/volume)Ordered By: Gladis Nava on 07-28-2024 Urea nitrogen [Mass/Vol] 20 mg/dL High 7-18 [facility] Sodium levelOrdered By: Gladis Nava on 07-28-2024 Sodium [Moles/Vol] 132 mmol/L Low 136-145 [facility] Total proteinOrdered By: Danika Nava on 07-28-2024 Protein [Mass/Vol] 7.8 g/dL 6.4-8.2 [facility] White blood cell (WBC) count Ordered By: Gladis Nava on 07-28-2024 WBC (Bld) [#/Vol] 8.2 10*3/uL 4.4-11.0 [facility] Chest PA and Lateralon 07-27 Chest PA and Lateral [facility] Services [address] [place] [address] Chest PA and Lateral MR#: [id number] Acct: [id number] Name: CINDY COSTA Rep #: [id number] : 1940 M 84 From: Riri Abbasi PCP: Dr. Gladis Nava MD Status: REG CLI Study: Chest PA and Lateral Date of Exam: 07/27/24 Exam# [id number] Ordering Dr: Gladis Nava MD [id number] INDICATION: BRONCHITIS EXAMINATION/TECHNIQUE: X-RAY - XR Chest [...] EST , CC: Dr. Gladis Nava MD Project Management It Specialist: Signed Normal [facility] POCT UA (nonautomated) marianna retana resultedon 11-29-2023 Appearance (U) Clear Clear [facility] Work Phone: Glucose Test strip (U) [Mass/Vol] 100 (1+) Abnormal NEGATIVE mg/dl [facility] Work Phone: [phone] Hemoglobin Ql (U) Negative NEGATIVE [facility] Work Phone: [phone] Interpretation and review of laboratory results Abnormal [facility] Work Phone: [phone] Leukocyte esterase Test strip Ql (U) Negative NEGATIVE [facility] Work Phone: [phone] Nitrite Ql (U) Negative NEGATIVE [facility] Work Phone: [phone] pH (U) 7.5 [pH] No Reference Range Established [facility] Work Phone: [phone] POC Bilirubin, Urine Negative NEGATIVE [facility] Work Phone: [phone] POC Color, Urine Yellow Straw, Yellow, Light-Yellow [facility] Work Phone: [phone] POC Ketones, Urine Negative NEGATIVE mg/dl [facility] Work Phone: [phone] POC Protein, Urine Negative NEGATIVE, 30 (1+) mg/dl [facility] Work Phone: [phone] POC Specific [place], Urine 1.020 1.005 - 1.035 [facility] Work Phone: POC Urobilinogen, Urine 0.2 0.2, 1.0 EU/DL [facility] Work Phone: [phone] [facility] Work Phone: MR PROSTATE CONOR BOUNDARIESon 10-11-2023 MR PROSTATE CONOR BOUNDARIES Interpreted By: Misty Parr and Weaver Jakob STUDY: MR PROSTATE CONOR BOUNDARIES; 10/11/2023 11:15 am INDICATION: Signs/Symptoms:BPH with lower urinary tract symptoms, prostate volume for surgical planning, fuison if abnromal. Per EMR: Patient is an 83-year-old male with history of lower urinary tract symptoms. No PSA available. COMPARISON: None. ACCESSION NUMBER(S): [id number] ORDERING CLINICIAN: MARLON DEL VALLE TECHNIQUE: Multiplanar [...] x 2.1 cm x 4.2 cm in [id number], anterior-posterior and craniocaudal dimension. Prostate weight is [...] Stephenson MD. This study was interpreted at [facility], [place], [place]. MACRO: None Signed by: Misty Parr 10/13/2023 10:33 PM Dictation workstation: [id number] Normal [facility] Measure post void residualon 09-27-2023 pvr= 60 mL [facility] Work Phone: [facility] Work Phone: [phone] POCT UA Automated manually r esultedon 09-27-2023 Appearance (U) Cloudy Abnormal Clear [facility] Work Phone: [phone] Glucose Test strip (U) [Mass/Vol] Negative NEGATIVE mg/dl [facility] Work Phone: [phone] Hemoglobin Ql (U) SMALL (1+) Abnormal NEGATIVE [facility] Work Phone: [phone] Interpretation and review of laboratory results Abnormal [facility] Work Phone: [phone] Leukocyte esterase Test strip Ql (U) LARGE (3+) Abnormal NEGATIVE [facility] Work Phone: [phone] Nitrite Ql (U) Negative NEGATIVE [facility] Work Phone: [phone] pH (U) 6.5 [pH] No Reference Range Established [facility] Work Phone: [phone] POC Bilirubin, Urine Negative NEGATIVE [facility] Work Phone: [phone] POC Color, Urine Yellow Straw, Yellow, Light-Yellow [facility] Work Phone: [phone] POC Ketones, Urine Negative NEGATIVE mg/dl [facility] Work Phone: [phone] POC Protein, Urine TRACE Abnormal NEGATIVE, 30 (1+) mg/dl [facility] Work Phone: [phone] POC Specific [place], Urine 1.025 1.005 - 1.035 [facility] Work Phone: [phone] POC Urobilinogen, Urine 0.2 0.2, 1.0 EU/DL [facility] Work Phone: [phone] [facility] Work Phone: Absolute lymphocyte countOrd ered By: Gladis Nava on 06-17-2023 Lymphocytes Auto (Unsp spec) [#/Vol] 0.89 10*3/uL 0.83-4.51 [facility] Basophil percentageOrdered B y: Gladis Nava on 06-17-2023 Basophils/100 WBC (Bld) 0.6 % 0-1 [facility] Bilirubin [Mass/Vol] 0.50 mg/dL 0.20-1.00 [facility] Comment on above: For patients on eltr ombopag therapy, use of Dimension [place] TBIL is not recommended. Chloride [Moles/Vol] 106 mmol/L 98-107 [facility] Eosinophils/100 WBC (Bld) 1.6 % 0-5 [facility] Glucose [Mass/Vol] 131 mg/dL 74-106 [facility] Comment on above: Fasting Glucose resu lt greater than or equal to 126 mg/dL suggests DIABETES MELLITUS per A.D.A. criteria. Neutrophils (Bld) [#/Vol] 4.6 10*3/uL 2.0-7.7 [facility] Neutrophils/100 WBC (Bld) 72.9 % 47-70 [facility] Potassium [Moles/Vol] 4.2 mmol/L 3.5-5.1 [facility] Protein [Mass/Vol] 7.4 g/dL 6.4-8.2 [facility] Sodium [Moles/Vol] 138 mmol/L 136-145 [facility] WBC (Bld) [#/Vol] 6.3 10*3/uL 4.4-11.0 [facility] Blood erythrocytes count (nu mber/volume)Ordered By: Gladis Nava on 06-17-2023 RBC (Bld) [#/Vol] 4.86 10*6/uL 4.6-6.2 [facility] Blood hemoglobin measurement (mass/volume)Ordered By: Gladis Nava on 06-17-2023 Hemoglobin (Bld) [Mass/Vol] 14.6 g/dL 13.0-16.5 [facility] Blood lymphocytes/100 leukoc ytesOrdered By: Gladis Nava on 06-17-2023 Lymphocytes/100 WBC (Bld) 14.1 % 19-41 [facility] Blood monocytes/100 leukocyt esOrdered By: Gladis Nava on 06-17-2023 Monocytes/100 WBC (Bld) 10.3 % 0-10 [facility] Blood platelet mean volumeOr dered By: Gladis Nava on 06-17-2023 Platelet mean volume (Bld) [Entitic vol] 8.7 fL 6.2-12.0 [facility] Determination of erythrocyte mean corpuscular volume (MCV)Ordered By: Gladis Nava on 06-17-2023 MCV (RBC) [Entitic vol] 92.0 fL 80-94 [facility] Hematocrit Auto (Bld) [Volum e fraction]Ordered By: Gladis Nava on 06-17-2023 Hematocrit (Bld) [Volume fraction] 44.7 % 40-54 [facility] Laboratory - Chemistry and C hemistry - challengeOrdered By: Gladis Nava on 06-17-2023 ALP [Catalytic activity/Vol] 48 U/L 45-117 [facility] ALT [Catalytic activity/Vol] 22 U/L 16-61 [facility] CO2 [Moles/Vol] 27.0 mmol/L 21.0-32.0 [facility] Globulin (S) [Mass/Vol] 3.7 g/dL 2.2-4.2 [facility] Urea nitrogen/Creatinine [Mass ratio] 17.7 mg/mg 10-20 [facility] Laboratory - Hematology and Cell countsOrdered By: Gladis Nava on 06-17-2023 Erythrocyte distribution width (RBC) [Entitic vol] 43.3 fL 35.1-43.9 [facility] Erythrocyte distribution width (RBC) [Ratio] 13.0 % 11.6-14.6 [facility] Immature granulocytes/100 WBC (Bld) 0.500 % 0.0-0.9 [facility] Comment on above: IG% - Immature Granu locytes (promyelocytes, myelocytes and metamyelocytes) > 1% indicates that a LEFT SHIFT is Present. MCH (RBC) [Entitic mass] 30.0 pg 27.0-32.0 [facility] Nucleated RBC/100 WBC (Bld) [Ratio] 0 % 0-5 [facility] MCHC Auto (RBC) [Mass/Vol]Or dered By: Gladis Nava on 06-17-2023 MCHC (RBC) [Mass/Vol] 32.7 g/dL 32-36 [facility] No Panel InformationOrdered By: Gladis Nava on 06-17-2023 Urine Microalbumin/Creatinine Ratio [facility] Comment on above: Test not performed Estimated GFR (MDRD) Amer 80 mL/min >60 [facility] Comment on above: GFR Calc Estimated GFR (MDRD) Non-Af Amer 66 mL/min >60 [facility] Comment on above: Non- GFR Calc Platelets bldOrdered By: Danika Nava on 06-17-2023 Platelets (Bld) [#/Vol] 301 10*3/uL 150-450 [facility] Serum or plasma albumin alisson urement (mass/volume)Ordered By: Gladis Nava on 06-17-2023 Albumin [Mass/Vol] 3.7 g/dL 3.2-5.0 [facility] Serum or plasma albumin/glob ulin mass ratioOrdered By: Gladis Nava on 06-17-2023 Albumin/Globulin [Mass ratio] 1.0 {ratio} 0.9-2.4 [facility] Serum or plasma calcium alisson urement (mass/volume)Ordered By: Gladis Nava on 06-17-2023 Calcium [Mass/Vol] 8.9 mg/dL 8.5-10.1 [facility] Serum or plasma creatinine m easurement (mass/volume)Ordered By: Gladis Nava on 06-17-2023 Creatinine [Mass/Vol] 1.13 mg/dL 0.70-1.30 [facility] Comment on above: The validity of the calculated GFR & GFRAA in patients over 70 years has not been determined. Clinical correlation is essential. Serum or plasma urea nitroge n measurement (mass/volume)Ordered By: Gladis Nava on 06-17-2023 Urea nitrogen [Mass/Vol] 20 mg/dL 7-18 [facility] Thin prep Papanicolaou smear with manual screeningOrdered By: Gladis Nava on 06-17-2023 Thin prep Papanicolaou smear with manual screening < 5.0 mg/L NO RANGE EST. [facility] Thin prep Papanicolaou smear with manual screening 12 U/L 15-37 [facility] Thin prep Papanicolaou smear with manual screening 5 5-15 [facility] Urine creatinine measurement (mass/volume)Ordered By: Gladis Nava on 06-17-2023 Creatinine (U) [Mass/Vol] 53.60 mg/dL NO RANGE EST. [facility] Absolute lymphocyte countOrd ered By: Dr. Nava on 09-20-2022 Lymphocytes Auto (Unsp spec) [#/Vol] 1.01 10*3/uL 0.83-4.51 [facility] Basophil percentageOrdered B y: Dr. Nava on 09-20-2022 Basophils/100 WBC (Bld) 0.6 % 0-1 [facility] Bilirubin [Mass/Vol] 0.50 mg/dL 0.20-1.00 [facility] Comment on above: For patients on eltr ombopag therapy, use of Dimension [place] TBIL is not recommended. Chloride [Moles/Vol] 106 mmol/L 98-107 [facility] Eosinophils/100 WBC (Bld) 4.0 % 0-5 [facility] Glucose [Mass/Vol] 120 mg/dL 74-106 [facility] Comment on above: Fasting Glucose resu lt from 100 to 125 mg/dL suggests IMPAIRED HOMEOSTASIS per A.D.A. criteria. Neutrophils (Bld) [#/Vol] 4.9 10*3/uL 2.0-7.7 [facility] Neutrophils/100 WBC (Bld) 69.3 % 47-70 [facility] Potassium [Moles/Vol] 4.7 mmol/L 3.5-5.1 [facility] Protein [Mass/Vol] 7.6 g/dL 6.4-8.2 [facility] Sodium [Moles/Vol] 138 mmol/L 136-145 [facility] WBC (Bld) [#/Vol] 7.0 10*3/uL 4.4-11.0 [facility] Blood erythrocytes count (nu mber/volume)Ordered By: Dr. Nava on 09-20-2022 RBC (Bld) [#/Vol] 4.86 10*6/uL 4.6-6.2 [facility] Blood hemoglobin measurement (mass/volume)Ordered By: Dr. Nava on 09-20-2022 Hemoglobin (Bld) [Mass/Vol] 14.6 g/dL 13.0-16.5 [facility] Blood lymphocytes/100 leukoc ytesOrdered By: Dr. Nava on 09-20-2022 Lymphocytes/100 WBC (Bld) 14.3 % 19-41 [facility] Blood monocytes/100 leukocyt esOrdered By: Dr. Nava on 09-20-2022 Monocytes/100 WBC (Bld) 11.4 % 0-10 [facility] Blood platelet mean volumeOr dered By: Dr. Nava on 09-20-2022 Platelet mean volume (Bld) [Entitic vol] 8.6 fL 6.2-12.0 [facility] Determination of erythrocyte mean corpuscular volume (MCV)Ordered By: Dr. Nava on 09-20-2022 MCV (RBC) [Entitic vol] 89.9 fL 80-94 [facility] Hematocrit Auto (Bld) [Volum e fraction]Ordered By: Dr. Nava on 09-20-2022 Hematocrit (Bld) [Volume fraction] 43.7 % 40-54 [facility] Laboratory - Chemistry and C hemistry - challengeOrdered By: Dr. Nava on 09-20-2022 Albumin [Mass/Vol] 3.8 g/dL 2.9-4.4 [facility] ALP [Catalytic activity/Vol] 51 U/L 45-117 [facility] ALT [Catalytic activity/Vol] 19 U/L 16-61 [facility] CO2 [Moles/Vol] 23.0 mmol/L 21.0-32.0 [facility] Globulin (S) [Mass/Vol] 3.9 g/dL 2.2-4.2 [facility] Urea nitrogen/Creatinine [Mass ratio] 18.5 mg/mg 10-20 [facility] Laboratory - Hematology and Cell countsOrdered By: Dr. Nava on 09-20-2022 Erythrocyte distribution width (RBC) [Entitic vol] 42.6 fL 35.1-43.9 [facility] Erythrocyte distribution width (RBC) [Ratio] 13.1 % 11.6-14.6 [facility] Immature granulocytes/100 WBC (Bld) 0.400 % 0.0-0.9 [facility] Comment on above: IG% - Immature Granu locytes (promyelocytes, myelocytes and metamyelocytes) > 1% indicates that a LEFT SHIFT is Present. MCH (RBC) [Entitic mass] 30.0 pg 27.0-32.0 [facility] Nucleated RBC/100 WBC (Bld) [Ratio] 0 % 0-5 [facility] MCHC Auto (RBC) [Mass/Vol]Or dered By: Dr. Nava on 09-20-2022 MCHC (RBC) [Mass/Vol] 33.4 g/dL 32-36 [facility] No Panel InformationOrdered By: Dr. Nava on 09-20-2022 Addendum Document Comment . [facility] Comment on above: The SPE pattern appe ars unremarkable. Evidence ofmonoclonal protein is not apparent.Performed at: [facility] [address] [id number] Director: Kike Alfaro PhD, Phone: [phone] [id number] 0.3 g/dL 0.0-0.4 [facility] [id number] 0.8 g/dL 0.4-1.0 [facility] Estimated GFR (MDRD) Amer 75 mL/min >60 [facility] Comment on above: GFR Calc Estimated GFR (MDRD) Non-Af Amer 62 mL/min >60 [facility] Comment on above: Non- GFR Calc Gamma Globulins 1.2 g/dL 0.4-1.8 [facility] Prostate Specific Antigen Total 2.90 ng/mL 0.0-4.0 [facility] Comment on above: This test was perfor med using the TPSA assay method for the[employer] chemistry system. Values obtained with differentassay methods cannot be used interchangably.When changing PSA assays in the course of monitoring apatient, additional sequential testing should be carriedout to confirm baseline values. Platelets bldOrdered By: Dr. Nava on 09-20-2022 Platelets (Bld) [#/Vol] 364 10*3/uL 150-450 [facility] Protein Fractions Elph [Inte rp]Ordered By: Dr. Nava on 09-20-2022 Protein Fractions [Interp] Comment . [facility] Comment on above: Protein electrophore sis scan will follow via computer,mail, or head mixer delivery. Serum albumin to globulin ra beto by protein electrophoresisOrdered By: Dr. Nava on 09-20-2022 Albumin/Globulin Elph [Mass ratio] 1.2 0.7-1.7 [facility] Serum globulin measurement ( mass/volume)Ordered By: Dr. Nava on 09-20-2022 Globulin (S) [Mass/Vol] 3.3 g/dL 2.2-3.9 [facility] Serum or plasma albumin alisson urement (mass/volume)Ordered By: Dr. Nava on 09-20-2022 Albumin [Mass/Vol] 3.7 g/dL 3.2-5.0 [facility] Serum or plasma albumin/glob ulin mass ratioOrdered By: Dr. Nava on 09-20-2022 Albumin/Globulin [Mass ratio] 0.9 {ratio} 0.9-2.4 [facility] Serum or plasma beta globuli n measurement by electrophoresis (mass/volume)Ordered By: Dr. Nava on 09-20-2022 Beta globulin Elph [Mass/Vol] 1.1 g/dL 0.7-1.3 [facility] Serum or plasma calcium alisson urement (mass/volume)Ordered By: Dr. Nava on 09-20-2022 Calcium [Mass/Vol] 9.2 mg/dL 8.5-10.1 [facility] Serum or plasma creatinine m easurement (mass/volume)Ordered By: Dr. Nava on 09-20-2022 Creatinine [Mass/Vol] 1.19 mg/dL 0.70-1.30 [facility] Comment on above: The validity of the calculated GFR & GFRAA in patients over 70 years has not been determined. Clinical correlation is essential. Serum or plasma urea nitroge n measurement (mass/volume)Ordered By: Dr. Nava on 09-20-2022 Urea nitrogen [Mass/Vol] 22 mg/dL 7-18 [facility] Thin prep Papanicolaou smear with manual screeningOrdered By: Dr. Nava on 09-20-2022 Thin prep Papanicolaou smear with manual screening 12 U/L 15-37 [facility] Thin prep Papanicolaou smear with manual screening 9 5-15 [facility] Thin prep Papanicolaou smear with manual screening See comment [facility] Comment on above: NOT OBSERVED Total protein bloodOrdered B y: Dr. Nava on 09-20-2022 Protein [Mass/Vol] 7.1 g/dL 6.0-8.5 [facility] Laboratory - Microbiology an d Antimicrobial susceptibilityOrdered By: Dr. Cervantes on 09-08-2022 Bacteria identified Cx Nom (Bld) No growth in 5 days. [facility] Absolute lymphocyte countOrd ered By: Dr. Sue on 09-06-2022 Lymphocytes Auto (Unsp spec) [#/Vol] 0.79 10*3/uL 0.83-4.51 [facility] Basophil percentageOrdered B y: Dr. Sue on 09-06-2022 Basophils/100 WBC (Bld) 0.8 % 0-1 [facility] Chloride [Moles/Vol] 106 mmol/L 98-107 [facility] Eosinophils/100 WBC (Bld) 5.3 % 0-5 [facility] Glucose [Mass/Vol] 137 mg/dL 74-106 [facility] Comment on above: Fasting Glucose resu lt greater than or equal to 126 mg/dL suggests DIABETES MELLITUS per A.D.A. criteria. Neutrophils (Bld) [#/Vol] 4.2 10*3/uL 2.0-7.7 [facility] Neutrophils/100 WBC (Bld) 70.2 % 47-70 [facility] Potassium [Moles/Vol] 4.1 mmol/L 3.5-5.1 [facility] Sodium [Moles/Vol] 137 mmol/L 136-145 [facility] WBC (Bld) [#/Vol] 6.0 10*3/uL 4.4-11.0 [facility] Blood erythrocytes count (nu mber/volume)Ordered By: Dr. Sue on 09-06-2022 RBC (Bld) [#/Vol] 4.61 10*6/uL 4.6-6.2 [facility] Blood hemoglobin measurement (mass/volume)Ordered By: Dr. Sue on 09-06-2022 Hemoglobin (Bld) [Mass/Vol] 14.0 g/dL 13.0-16.5 [facility] Blood lymphocytes/100 leukoc ytesOrdered By: Dr. Sue on 09-06-2022 Lymphocytes/100 WBC (Bld) 13.2 % 19-41 [facility] Blood monocytes/100 leukocyt esOrdered By: Dr. Sue on 09-06-2022 Monocytes/100 WBC (Bld) 10.0 % 0-10 [facility] Blood platelet mean volumeOr dered By: Dr. Sue on 09-06-2022 Platelet mean volume (Bld) [Entitic vol] 8.5 fL 6.2-12.0 [facility] Determination of erythrocyte mean corpuscular volume (MCV)Ordered By: Dr. Sue on 09-06-2022 MCV (RBC) [Entitic vol] 92.2 fL 80-94 [facility] Hematocrit Auto (Bld) [Volum e fraction]Ordered By: Dr. Sue on 09-06-2022 Hematocrit (Bld) [Volume fraction] 42.5 % 40-54 [facility] Laboratory - Chemistry and C hemistry - challengeOrdered By: Dr. Sue on 09-06-2022 CO2 [Moles/Vol] 23.0 mmol/L 21.0-32.0 [facility] Urea nitrogen/Creatinine [Mass ratio] 19.2 mg/mg 10-20 [facility] Laboratory - CoagulationOrde red By: Dr. Sue on 09-06-2022 aPTT Coag (Bld) [Time] 58.4 s 24.1-36.2 [facility] Laboratory - Hematology and Cell countsOrdered By: Dr. Sue on 09-06-2022 Erythrocyte distribution width (RBC) [Entitic vol] 45.6 fL 35.1-43.9 [facility] Erythrocyte distribution width (RBC) [Ratio] 13.6 % 11.6-14.6 [facility] Immature granulocytes/100 WBC (Bld) 0.500 % 0.0-0.9 [facility] Comment on above: IG% - Immature Granu locytes (promyelocytes, myelocytes and metamyelocytes) > 1% indicates that a LEFT SHIFT is Present. MCH (RBC) [Entitic mass] 30.4 pg 27.0-32.0 [facility] Nucleated RBC/100 WBC (Bld) [Ratio] 0 % 0-5 [facility] MCHC Auto (RBC) [Mass/Vol]Or dered By: Dr. Sue on 09-06-2022 MCHC (RBC) [Mass/Vol] 32.9 g/dL 32-36 [facility] No Panel InformationOrdered By: Dr. Sue on 09-06-2022 Estimated Creatinine Clearance Calc 53.52 ml/min [facility] Estimated GFR (MDRD) Amer 71 mL/min >60 [facility] Comment on above: GFR Calc Estimated GFR (MDRD) Non-Af Amer 59 mL/min >60 [facility] Comment on above: Non- GFR Calc Platelets bldOrdered By: Dr. Sue on 09-06-2022 Platelets (Bld) [#/Vol] 222 10*3/uL 150-450 [facility] Serum or plasma calcium alisson urement (mass/volume)Ordered By: Dr. Sue on 09-06-2022 Calcium [Mass/Vol] 9.0 mg/dL 8.5-10.1 [facility] Serum or plasma creatinine m easurement (mass/volume)Ordered By: Dr. Sue on 09-06-2022 Creatinine [Mass/Vol] 1.25 mg/dL 0.70-1.30 [facility] Comment on above: The validity of the calculated GFR & GFRAA in patients over 70 years has not been determined. Clinical correlation is essential. Serum or plasma urea nitroge n measurement (mass/volume)Ordered By: Dr. Sue on 09-06-2022 Urea nitrogen [Mass/Vol] 24 mg/dL 7-18 [facility] Thin prep Papanicolaou smear with manual screeningOrdered By: Dr. Sue on 09-06-2022 Thin prep Papanicolaou smear with manual screening 8 5-15 [facility] Basophil percentageOrdered B y: Dr. Manuel on 09-04-2022 Bilirubin [Mass/Vol] 0.70 mg/dL 0.20-1.00 [facility] Comment on above: For patients on eltr ombopag therapy, use of Dimension [place] TBIL is not recommended. Protein [Mass/Vol] 7.6 g/dL 6.4-8.2 [facility] COVID-19 virus antigen assay Ordered By: Dr. Manuel on 09-04-2022 SARS-CoV-2 (COVID-19) Ag IA.rapid Ql (Resp) Not detected Not Detect [facility] Comment on above: Normal Reference Ran ge: [...] 09-04-2022 ALP [Catalytic activity/Vol] 60 U/L 45-117 [facility] ALT [Catalytic activity/Vol] 16 U/L 16-61 [facility] Globulin (S) [Mass/Vol] 4.0 g/dL 2.2-4.2 [facility] Magnesium [Mass/Vol] 2.4 mg/dL 1.6-2.6 [facility] No Panel InformationOrdered By: Dr. Sue on 09-04-2022 Troponin I High Sensitivity 47 pg/mL 3.0-78.0 [facility] Comment on above: Please Note: [place] t Units and Gender Specific Reference Ranges. For more information see Policy Stat Procedure [place] High Sensitivity Troponin (TNIH) and attachments. No Panel InformationOrdered By: Dr. Manuel on 09-04-2022 Thyroid Stimulating Hormone (TSH) 1.89 uIU/mL 0.358-3.74 [facility] Serum or plasma albumin alisson urement (mass/volume)Ordered By: Dr. Manuel on 09-04-2022 Albumin [Mass/Vol] 3.6 g/dL 3.2-5.0 [facility] Serum or plasma albumin/glob ulin mass ratioOrdered By: Dr. Manuel on 09-04-2022 Albumin/Globulin [Mass ratio] 0.9 {ratio} 0.9-2.4 [facility] Thin prep Papanicolaou smear with manual screeningOrdered By: Dr. Manuel on 09-04-2022 Thin prep Papanicolaou smear with manual screening 12 U/L 15-37 [facility] Absolute lymphocyte countOrd ered By: Dr. Cervantes on 09-03-2022 Lymphocytes Auto (Unsp spec) [#/Vol] 0.77 10*3/uL 0.83-4.51 [facility] Basophil percentageOrdered B y: Dr. Cervantes on 09-03-2022 Basophils/100 WBC (Bld) 0.4 % 0-1 [facility] Chloride [Moles/Vol] 106 mmol/L 98-107 [facility] Eosinophils/100 WBC (Bld) 2.3 % 0-5 [facility] Glucose [Mass/Vol] 123 mg/dL 74-106 [facility] Comment on above: Fasting Glucose resu lt from 100 to 125 mg/dL suggests IMPAIRED HOMEOSTASIS per A.D.A. criteria. Neutrophils (Bld) [#/Vol] 5.9 10*3/uL 2.0-7.7 [facility] Neutrophils/100 WBC (Bld) 75.5 % 47-70 [facility] Potassium [Moles/Vol] 4.4 mmol/L 3.5-5.1 [facility] Sodium [Moles/Vol] 139 mmol/L 136-145 [facility] WBC (Bld) [#/Vol] 7.8 10*3/uL 4.4-11.0 [facility] Blood erythrocytes count (nu mber/volume)Ordered By: Dr. Cervantes on 09-03-2022 RBC (Bld) [#/Vol] 5.10 10*6/uL 4.6-6.2 [facility] Blood hemoglobin measurement (mass/volume)Ordered By: Dr. Cervantes on 09-03-2022 Hemoglobin (Bld) [Mass/Vol] 15.2 g/dL 13.0-16.5 [facility] Blood lymphocytes/100 leukoc ytesOrdered By: Dr. Cervantes on 09-03-2022 Lymphocytes/100 WBC (Bld) 9.9 % 19-41 [facility] Blood monocytes/100 leukocyt esOrdered By: Dr. Cervantes on 09-03-2022 Monocytes/100 WBC (Bld) 11.6 % 0-10 [facility] Blood or tissue coagulation factor II targeted mutation analysis by molecular geneticOrdered By: Dr. Manuel on 09-03-2022 F2 gene targeted mutation analysis [employer] (Bld/Tiss) Comment . [facility] Comment on above: Result: c.*97G>A - N [...] in theF2 gene and a c.1601G>A (p. [id number]) variant in the F5 gene(commonly referred to as Factor V Leiden) have an approximately 20-fold increased risk for venous thromboembolism. Risks are likely mara even higher in more complex genotype combinations involving theF2 c.*97G>A variant and Factor V Leiden (PMID: 15806470). Additionalrisk factors include but are not limited [...] for health care providers to discussresults at [phone] ([phone]).Test Details:Variant analyzed: c.*97G>A, previously referred to as [id number]/Limitations:DNA analysis of the F2 gene (NM_000506.5) was [...] was developed and its performance characteristics determinedby [employer]. It has not been cleared or approved by the Food and DrugAdministration.References:Ruperto Deal, Yazmin YANG, Prateek R, Teofilo WW, Kerwin JH; [facility] ProfessionalPractice and Guidelines Committee. Addendum: [place] [employer] consensus statement on factor V Leiden mutationtesting. Colette Med. 2020Sep 16. doi: 10.1038/[id number]-e.PMID: 13350415.[place] RIGGS. Prothrombin Thrombophilia. 2005Feb 05[Updated 2020Aug 18]. In: Shane MP, Jose Rafael HH, Felicitas RA, et al.,editors. Garret(R) [Internet]. [place] ([place]): [facility]; 1943[address]85[address]. Available from:https://www.ncbi.nlm.nih.gov/books/MSU6023/Jamie Deal, Yazmin YANG, Lee X, Lang B, Fletcher EB, Irene P, Sofia CS;[facility] Laboratory Iso Coordinator Committee. Venous thromboembolismlaboratory testing (factor V Leiden and factor II c.*97G>A),2018 update: a technical standard of the [place] [employer] MedicalGenetics and Genomics ([facility]). Colette Med. 2018 Jun;20(12):5841-0184.doi: 10.1038/[id number]-k. Epub 2017Apr 18. PMID: 23731370.Yoly Mendoza, PhD, Yin Martins, PhD, Tamika Oscar, PhD, Makenna Onofre, PhD, FACMGVianca Arteaga, PhD, Joshua Hilton, PhD, Asha Chapman, PhD, FACMGPerformed at: - [facility] [id number] Director: Sg Glass MD, Phone: [phone] at: - [facility] [id number] Director: Kike Alfaro PhD, Phone: [phone] at: - [facility] [place] [id number] [place], [place] [id number] Director: Jassi Hawley [facility], Phone: [phone] Blood platelet mean volumeOr dered By: Dr. Cervantes on 09-03-2022 Platelet mean volume (Bld) [Entitic vol] 8.9 fL 6.2-12.0 [facility] Determination of erythrocyte mean corpuscular volume (MCV)Ordered By: Dr. Cervantes on 09-03-2022 MCV (RBC) [Entitic vol] 92.4 fL 80-94 [facility] Functional protein C measure mentOrdered By: Dr. Manuel on 09-03-2022 Protein C actual/normal Chromogenic method (PPP) [Rel catalytic activity/Vol] 130 % 73-180 [facility] Protein C actual/normal Chromogenic method (PPP) [Rel catalytic activity/Vol] Not Reportable [facility] Hematocrit Auto (Bld) [Volum e fraction]Ordered By: Dr. Cervantes on 09-03-2022 Hematocrit (Bld) [Volume fraction] 47.1 % 40-54 [facility] INR in Blood by Coagulation assayOrdered By: Dr. Cervantes on 09-03-2022 INR Coag (Bld) [Relative time] 1.1 {INR} [facility] Influenza virus A and B and SARS-CoV-2 (COVID-19) Ag panel - Upper respiratory specimOrdered By: Dr. Cervantes on 09-03-2022 SARS-CoV-2 (COVID-19) RNA NE+probe Ql (Resp) [facility] Laboratory - Chemistry and C hemistry - challengeOrdered By: Dr. Cervantes on 09-03-2022 CO2 [Moles/Vol] 26.0 mmol/L 21.0-32.0 [facility] Natriuretic peptide B (Bld) [Mass/Vol] 24.4 pg/mL 0-100 [facility] Urea nitrogen/Creatinine [Mass ratio] 15.2 mg/mg 10-20 [facility] Laboratory - CoagulationOrde red By: Dr. Cervantes on 09-03-2022 aPTT Coag (Bld) [Time] 29.8 s 24.1-36.2 [facility] PT Coag (PPP) [Time] 13.9 s 11.7-14.9 [facility] Laboratory - Hematology and Cell countsOrdered By: Dr. Cervantes on 09-03-2022 Erythrocyte distribution width (RBC) [Entitic vol] 45.5 fL 35.1-43.9 [facility] Erythrocyte distribution width (RBC) [Ratio] 13.5 % 11.6-14.6 [facility] Immature granulocytes/100 WBC (Bld) 0.300 % 0.0-0.9 [facility] Comment on above: IG% - Immature Granu locytes (promyelocytes, myelocytes and metamyelocytes) > 1% indicates that a LEFT SHIFT is Present. MCH (RBC) [Entitic mass] 29.8 pg 27.0-32.0 [facility] Nucleated RBC/100 WBC (Bld) [Ratio] 0 % 0-5 [facility] MCHC Auto (RBC) [Mass/Vol]Or dered By: Dr. Cervantes on 09-03-2022 MCHC (RBC) [Mass/Vol] 32.3 g/dL 32-36 [facility] No Panel InformationOrdered By: Dr. Manuel on 09-03-2022 Anti-Cardiolipin IgM Antibody 22 MPL U/mL 0-12 [facility] Comment on above: Negative: <13 Indete rminate: 13 - 20 Low-Med Positive: >20 - 80 High Positive: >80 Factor V Leiden Mutation Comment . [facility] Comment on above: Result: c.1601G>A (p .Ryo035Mbr) - Not DetectedThis result is not associated with an increased risk for venousthromboembolism. See Additional Clinical Information andComments.Additional Clinical Information:Venous thromboembolism is a multifactorial diseaseinfluenced by genetic, environmental, and circumstantialrisk factors. The c.1601G>A (p. [id number]) variant in theF5 gene, commonly referred to [...] F2 c.*97G>Avariant and Factor V Leiden (PMID: 82373192). Additionalrisk factors include but are not limited [...] for health careproviders to discuss results at [phone] ([phone]).Test Details:Variant Analyzed: c.1601G>A (p. Zca732Rym), referred toas Factor V LeidenMethods/Limitations:DNA analysis of [...] was developed and its performance characteristicsdetermined by [employer]. It has not been cleared orapproved by the Food and Drug Administration.References:Ruperto Deal, Yazmin YANG, Prateek R, Teofilo WW, Kerwin JH; ACMGProfessional Practice and Guidelines Committee. Addendum:[place] [employer] consensus statement onfactor V Leiden mutation testing. Colette Med. 2020Sep 16.doi: 10.1038/[id number]-j. PMID: 58221287.[place] RIGGS. Factor V Leiden Thrombophilia. 1998November 25(Updated 2017Jul 18). In: Shane MP, Jose Rafael HH, Felicitas RA,et al., editors. Garret(R) (Internet). [place] ([place]):[facility]; 9790-9634. Availablefrom: https://www.ncbi.nlm.nih.gov/books/BDC9217/Jamie Deal, Yazmin YANG, Lee X, Lang B, Fletcher EB, Irene P,Sofia CS; [facility] Laboratory Iso Coordinator Committee.Venous thromboembolism laboratory testing (factor V Leidenand factor II c.*97G>A), 2018 update: a technical standardof the [place] [employer]etics and Genomics([facility]). Colette Med. 2018 Jun;20(12):0916-0430. doi:10.1038/[id number]-y. Epub 2017Apr 18. PMID: 75771871.Yoly Mendoza, PhD, Talha Obrien PhDEduar Templeton, PhD, Tamika Oscar, PhD, Makenna Onofre, PhD, FACW Elena Arteaga, PhD, Joshua Hilton, PhD, Asha Chapman, PhD, [facility] No Panel InformationOrdered By: Dr. Cervantes on 09-03-2022 D-Dimer Quantitative (PE/DVT) 17.13 FEU/ug/m 0.27-0.49 [facility] Comment on above: D-Dimer ELEVATED (>0 .49): Additional studies and clinicalassessments are indicated to conclude diagnosis of:Deep Vein Thrombosis (DVT) or Pulmonary Embolism (PE)CRITICAL VALUE VERIFIED. CALLED TO MABQYC96/20/23 1836 María Higginbotham.RESULTS READ BACK BY SAME . Estimated Creatinine Clearance Calc 50.68 ml/min [facility] Estimated GFR (MDRD) Amer 67 mL/min >60 [facility] Comment on above: GFR Calc Estimated GFR (MDRD) Non-Af Amer 55 mL/min >60 [facility] Comment on above: Non- GFR Calc Troponin I High Sensitivity 105 pg/mL 3.0-78.0 [facility] Comment on above: Please Note: [place] t Units and Gender Specific Reference Ranges. For more information see Policy Stat Procedure [place] High Sensitivity Troponin (TNIH) and attachments. Platelet poor plasma antithr ombin actual/normal ratio by chromogenic method (relativeOrdered By: Dr. Manuel on 09-03-2022 Antithrombin actual/normal Chromogenic method (PPP) [Rel catalytic activity/Vol] 122 % 75-135 [facility] Comment on above: Direct Xa inhibitor anticoagulants such as rivaroxaban,apixaban and edoxaban will lead to spuriously elevatedantithrombin activity levels possibly masking a deficiency. Platelet poor plasma antithr ombin antigen detection by immunoassayOrdered By: Dr. Manuel on 09-03-2022 Antithrombin Ag IA Ql (PPP) 98 % 72-124 [facility] Comment on above: This test was develo ped and its performance characteristicsdetermined by [employer]. It has not been cleared orapproved by the Food and Drug Administration. Platelets bldOrdered By: Dr. Cervantes on 09-03-2022 Platelets (Bld) [#/Vol] 245 10*3/uL 150-450 [facility] Protein C antigen assayOrder ed By: Dr. Manuel on 09-03-2022 Protein C Ag actual/normal IA (PPP) [Relative mass conc] 119 % 60-150 [facility] Serum beta 2 glycoprotein 1 IgA antibody detectionOrdered By: Dr. Manuel on 09-03-2022 Beta 2 glycoprotein 1 IgA Ql (S) <9 0-25 [facility] Comment on above: Result Units: GPI Ig [...] glycoprotein 1 IgG Ql (S) <9 0-20 [facility] Comment on above: Result Units: GPI Ig [...] glycoprotein 1 IgM Ql (S) <9 0-32 [facility] Comment on above: Result Units: GPI Ig [...] Qn (S) < 9 GPL U/mL 0-14 [facility] Comment on above: Negative: <15 Indete rminate: 15 - 20 Low-Med Positive: >20 - 80 High Positive: >80 Serum or plasma calcium alisson urement (mass/volume)Ordered By: Dr. Cervantes on 09-03-2022 Calcium [Mass/Vol] 9.8 mg/dL 8.5-10.1 [facility] Serum or plasma creatinine m easurement (mass/volume)Ordered By: Dr. Cervantes on 09-03-2022 Creatinine [Mass/Vol] 1.32 mg/dL 0.70-1.30 [facility] Comment on above: The validity of the calculated GFR & GFRAA in patients over 70 years has not been determined. Clinical correlation is essential. Serum or plasma urea nitroge n measurement (mass/volume)Ordered By: Dr. Cervantes on 09-03-2022 Urea nitrogen [Mass/Vol] 20 mg/dL 7-18 [facility] Thin prep Papanicolaou smear with manual screeningOrdered By: Dr. Cervantes on 09-03-2022 Thin prep Papanicolaou smear with manual screening 7 5-15 [facility] Absolute lymphocyte counton 03-27-2022 Lymphocytes Auto (Unsp spec) [#/Vol] 0.89 10*3/uL 0.83-4.51 [facility] Work Phone: Basophil percentageon 2021 Basophils/100 WBC (Bld) 0.5 % 0-1 [facility] Work Phone: Bilirubin [Mass/Vol] 0.80 mg/dL 0.20-1.00 [facility] Work Phone: Comment on above: For patients on eltr ombopag therapy, use of Dimension [place] TBIL is not recommended. Chloride [Moles/Vol] 107 mmol/L 98-107 [facility] Work Phone: Eosinophils/100 WBC (Bld) 1.9 % 0-5 [facility] Work Phone: Glucose [Mass/Vol] 122 mg/dL 74-106 [facility] Work Phone: Comment on above: Fasting Glucose resu lt from 100 to 125 mg/dL suggests IMPAIRED HOMEOSTASIS per A.D.A. criteria. Neutrophils (Bld) [#/Vol] 4.2 10*3/uL 2.0-7.7 [facility] Work Phone: Neutrophils/100 WBC (Bld) 71.4 % 47-70 [facility] Work Phone: Potassium [Moles/Vol] 4.3 mmol/L 3.5-5.1 [facility] Work Phone: Comment on above: Slight Hemolysis, Re sult may be falsely increased. Protein [Mass/Vol] 7.8 g/dL 6.4-8.2 [facility] Work Phone: Sodium [Moles/Vol] 139 mmol/L 136-145 [facility] Work Phone: WBC (Bld) [#/Vol] 5.9 10*3/uL 4.4-11.0 [facility] Work Phone: [phone] Blood erythrocytes count (nu mber/volume)on 03-27-2022 RBC (Bld) [#/Vol] 4.72 10*6/uL 4.6-6.2 [facility]: Blood hemoglobin measurement (mass/volume)on 03-27-2022 Hemoglobin (Bld) [Mass/Vol] 14.2 g/dL 13.0-16.5 [facility] Work Phone: Blood lymphocytes/100 leukoc yteson 03-27-2022 Lymphocytes/100 WBC (Bld) 15.1 % 19-41 [facility] Work Phone: Blood monocytes/100 leukocyt eson 03-27-2022 Monocytes/100 WBC (Bld) 10.8 % 0-10 [facility] Work Phone: Blood platelet mean volumeon 03-27-2022 Platelet mean volume (Bld) [Entitic vol] 9.1 fL 6.2-12.0 [facility] Work Phone: Determination of erythrocyte mean corpuscular volume (MCV)on 03-27-2022 MCV (RBC) [Entitic vol] 91.5 fL 80-94 [facility] Work Phone: Hematocrit Auto (Bld) [Volum e fraction]on 03-27-2022 Hematocrit (Bld) [Volume fraction] 43.2 % 40-54 [facility] Work Phone: Hemoglobin in reticulocytes (mass per reticulocyte)on 03-27-2022 Hemoglobin (Reticulocytes) [Entitic mass] 34.7 pg 30-35 [facility] Work Phone: Iron measurement (mass/mass) on 03-27-2022 Iron (Unsp spec) [Mass/Mass] 131 ug/dL 65-175 [facility] Work Phone: Comment on above: Slight Hemolysis, Re sult may be falsely increased. Laboratory - Chemistry and C hemistry - challengeon 03-27-2022 ALP [Catalytic activity/Vol] 49 U/L 45-117 [facility] Work Phone: ALT [Catalytic activity/Vol] 24 U/L 16-61 [facility] Work Phone: CO2 [Moles/Vol] 25.0 mmol/L 21.0-32.0 [facility] Work Phone: Cobalamin (Vitamin B12) [Mass/Vol] 459 pg/mL 211-911 [facility] Work Phone: Globulin (S) [Mass/Vol] 3.9 g/dL 2.2-4.2 [facility] Work Phone: Urea nitrogen/Creatinine [Mass ratio] 15.6 mg/mg 10-20 [facility] Work Phone: Laboratory - Hematology and Cell countson 03-27-2022 Erythrocyte distribution width (RBC) [Entitic vol] 45.1 fL 35.1-43.9 [facility] Work Phone: Erythrocyte distribution width (RBC) [Ratio] 13.5 % 11.6-14.6 [facility] Work Phone: Immature granulocytes/100 WBC (Bld) 0.300 % 0.0-0.9 [facility] Work Phone: Comment on above: IG% - Immature Granu locytes (promyelocytes, myelocytes and metamyelocytes) > 1% indicates that a LEFT SHIFT is Present. MCH (RBC) [Entitic mass] 30.1 pg 27.0-32.0 [facility] Work Phone: Nucleated RBC/100 WBC (Bld) [Ratio] 0 % 0-5 [facility] Work Phone: MCHC Auto (RBC) [Mass/Vol]on 03-27-2022 MCHC (RBC) [Mass/Vol] 32.9 g/dL 32-36 [facility] Work Phone: No Panel Informationon 03-27 Estimated GFR (MDRD) Amer 73 mL/min >60 [facility] Work Phone: Comment on above: GFR Calc Estimated GFR (MDRD) Non-Af Amer 60 mL/min >60 [facility] Work Phone: Comment on above: Non- GFR Calc Immature Reticulocyte Fraction 13.60 % 3.00-15.90 [facility] Work Phone: Reticulocyte Count 1.51 % 0.5-1.5 [facility] Work Phone: Thyroid Stimulating Hormone (TSH) 1.63 uIU/mL 0.358-3.74 [facility] Work Phone: Total Iron Binding Capacity 313 ug/dL 250-450 [facility] Work Phone: Platelets bldon 03-27-2022 Platelets (Bld) [#/Vol] 318 10*3/uL 150-450 [facility] Work Phone: Serum or plasma albumin alisson urement (mass/volume)on 03-27-2022 Albumin [Mass/Vol] 3.9 g/dL 3.2-5.0 [facility] Work Phone: Serum or plasma albumin/glob ulin mass ratioon 03-27-2022 Albumin/Globulin [Mass ratio] 1.0 {ratio} 0.9-2.4 [facility] Work Phone: Serum or plasma calcium alisson urement (mass/volume)on 03-27-2022 Calcium [Mass/Vol] 9.5 mg/dL 8.5-10.1 [facility] Work Phone: Serum or plasma creatinine m easurement (mass/volume)on 03-27-2022 Creatinine [Mass/Vol] 1.22 mg/dL 0.70-1.30 [facility] Work Phone: Comment on above: The validity of the calculated GFR & GFRAA in patients over 70 years has not been determined. Clinical correlation is essential. Serum or plasma ferritin ronen surement (mass/volume)on 03-27-2022 Ferritin [Mass/Vol] 76 ng/mL 26-388 [facility] Work Phone: Serum or plasma urea nitroge n measurement (mass/volume)on 03-27-2022 Urea nitrogen [Mass/Vol] 19 mg/dL 7-18 [facility] Work Phone: Thin prep Papanicolaou smear with manual screeningon 03-27-2022 Thin prep Papanicolaou smear with manual screening 18 U/L 15-37 [facility] Work Phone: Comment on above: Slight Hemolysis, Re sult may be falsely increased. Thin prep Papanicolaou smear with manual screening 7 5-15 [facility] Work Phone: Absolute lymphocyte counton 12-25-2021 Lymphocytes Auto (Unsp spec) [#/Vol] 0.98 10*3/uL 0.83-4.51 [facility] Work Phone: Basophil percentageon 2021 Basophils/100 WBC (Bld) 0.4 % 0-1 [facility] Work Phone: Eosinophils/100 WBC (Bld) 1.2 % 0-5 [facility] Work Phone: [phone] Neutrophils (Bld) [#/Vol] 4.1 10*3/uL 2.0-7.7 [facility] Work Phone: [phone] Neutrophils/100 WBC (Bld) 72.2 % 47-70 [facility] Work Phone: WBC (Bld) [#/Vol] 5.7 10*3/uL 4.4-11.0 [facility] Work Phone: Blood erythrocytes count (nu mber/volume)on 12-25-2021 RBC (Bld) [#/Vol] 5.07 10*6/uL 4.6-6.2 [facility] Work Phone: [phone] Blood hemoglobin measurement (mass/volume)on 12-25-2021 Hemoglobin (Bld) [Mass/Vol] 13.8 g/dL 13.0-16.5 [facility] Work Phone: Blood lymphocytes/100 leukoc yteson 12-25-2021 Lymphocytes/100 WBC (Bld) 17.2 % 19-41 [facility] Work Phone: Blood monocytes/100 leukocyt eson 12-25-2021 Monocytes/100 WBC (Bld) 8.8 % 0-10 [facility] Work Phone: Blood platelet mean volumeon 12-25-2021 Platelet mean volume (Bld) [Entitic vol] 8.8 fL 6.2-12.0 [facility] Work Phone: Determination of erythrocyte mean corpuscular volume (MCV)on 12-25-2021 MCV (RBC) [Entitic vol] 86.0 fL 80-94 [facility] Work Phone: Hematocrit Auto (Bld) [Volum e fraction]on 12-25-2021 Hematocrit (Bld) [Volume fraction] 43.6 % 40-54 [facility] Work Phone: Iron measurement (mass/mass) on 12-25-2021 Iron (Unsp spec) [Mass/Mass] 73 ug/dL 65-175 [facility] Work Phone: Laboratory - Hematology and Cell countson 12-25-2021 Erythrocyte distribution width (RBC) [Entitic vol] 58.7 fL 35.1-43.9 [facility] Work Phone: Erythrocyte distribution width (RBC) [Ratio] 18.8 % 11.6-14.6 [facility] Work Phone: Immature granulocytes/100 WBC (Bld) 0.200 % 0.0-0.9 [facility] Work Phone: Comment on above: IG% - Immature Granu locytes (promyelocytes, myelocytes and metamyelocytes) > 1% indicates that a LEFT SHIFT is Present. MCH (RBC) [Entitic mass] 27.2 pg 27.0-32.0 [facility] Work Phone: Nucleated RBC/100 WBC (Bld) [Ratio] 0 % 0-5 [facility] Work Phone: MCHC Auto (RBC) [Mass/Vol]on 12-25-2021 MCHC (RBC) [Mass/Vol] 31.7 g/dL 32-36 [facility]: Platelets bldon 12-25-2021 Platelets (Bld) [#/Vol] 299 10*3/uL 150-450 [facility] Work Phone: Basophil percentageon 2021 WBC (Bld) [#/Vol] 8.0 10*3/uL 4.4-11.0 [facility] Work Phone: Blood erythrocytes count (nu mber/volume)on 11-02-2021 RBC (Bld) [#/Vol] 3.80 10*6/uL 4.6-6.2 [facility] Work [facility]: Blood hemoglobin measurement (mass/volume)on 11-02-2021 Hemoglobin (Bld) [Mass/Vol] 8.9 g/dL 13.0-16.5 [facility] Work Phone: Blood platelet mean volumeon 11-02-2021 Platelet mean volume (Bld) [Entitic vol] 9.3 fL 6.2-12.0 [facility] Work Phone: Determination of erythrocyte mean corpuscular volume (MCV)on 11-02-2021 MCV (RBC) [Entitic vol] 81.1 fL 80-94 [facility] Work Phone: Hematocrit Auto (Bld) [Volum e fraction]on 11-02-2021 Hematocrit (Bld) [Volume fraction] 30.8 % 40-54 [facility] Work Phone: Laboratory - Hematology and Cell countson 11-02-2021 Erythrocyte distribution width (RBC) [Entitic vol] 46.4 fL 35.1-43.9 [facility] Work Phone: Erythrocyte distribution width (RBC) [Ratio] 16.6 % 11.6-14.6 [facility] Work Phone: [phone] MCH (RBC) [Entitic mass] 23.4 pg 27.0-32.0 [facility] Work Phone: MCHC Auto (RBC) [Mass/Vol]on 11-02-2021 MCHC (RBC) [Mass/Vol] 28.9 g/dL 32-36 [facility] Work Phone: Platelets bldon 11-02-2021 Platelets (Bld) [#/Vol] 457 10*3/uL 150-450 [facility] Work Phone: Absolute lymphocyte counton 10-25-2021 Lymphocytes Auto (Unsp spec) [#/Vol] 1.30 10*3/uL 0.83-4.51 [facility] Work Phone: Basophil percentageon 2021 Basophils/100 WBC (Bld) 0.7 % 0-1 [facility] Work Phone: Bilirubin [Mass/Vol] 0.30 mg/dL 0.20-1.00 [facility] Work Phone: Comment on above: For patients on eltr ombopag therapy, use of Dimension [place] TBIL is not recommended. Chloride [Moles/Vol] 108 mmol/L 98-107 [facility] Work Phone: Eosinophils/100 WBC (Bld) 1.5 % 0-5 [facility] Work Phone: [phone] Glucose [Mass/Vol] 101 mg/dL 74-106 [facility] Work Phone: Comment on above: Fasting Glucose resu lt from 100 to 125 mg/dL suggests IMPAIRED HOMEOSTASIS per A.D.A. criteria. Neutrophils (Bld) [#/Vol] 3.8 10*3/uL 2.0-7.7 [facility] Work Phone: Neutrophils/100 WBC (Bld) 63.2 % 47-70 [facility] Work Phone: Potassium [Moles/Vol] 4.4 mmol/L 3.5-5.1 [facility] Work Phone: Protein [Mass/Vol] 6.7 g/dL 6.4-8.2 [facility] Work Phone: [phone] Sodium [Moles/Vol] 139 mmol/L 136-145 [facility] Work Phone: WBC (Bld) [#/Vol] 6.0 10*3/uL 4.4-11.0 [facility] Work Phone: Blood erythrocytes count (nu mber/volume)on 10-25-2021 RBC (Bld) [#/Vol] 3.51 10*6/uL 4.6-6.2 [facility] Work Phone: Blood hemoglobin measurement (mass/volume)on 10-25-2021 Hemoglobin (Bld) [Mass/Vol] 8.6 g/dL 13.0-16.5 [facility] Work Phone: Blood lymphocytes/100 leukoc yteson 10-25-2021 Lymphocytes/100 WBC (Bld) 21.8 % 19-41 [facility] Work Phone: Blood monocytes/100 leukocyt eson 10-25-2021 Monocytes/100 WBC (Bld) 12.6 % 0-10 [facility] Work Phone: Blood platelet mean volumeon 10-25-2021 Platelet mean volume (Bld) [Entitic vol] 8.6 fL 6.2-12.0 [facility] Work Phone: Determination of erythrocyte mean corpuscular volume (MCV)on 10-25-2021 MCV (RBC) [Entitic vol] 78.3 fL 80-94 [facility] Work Phone: Erythrocyte sedimentation ra kesha 10-25-2021 ESR (Bld) [Velocity] 11 mm[facility]h [facility]: Hematocrit Auto (Bld) [Volum e fraction]on 10-25-2021 Hematocrit (Bld) [Volume fraction] 27.5 % 40-54 [facility] Work Phone: Hemoglobin in reticulocytes (mass per reticulocyte)on 10-25-2021 Hemoglobin (Reticulocytes) [Entitic mass] 20.9 pg 30-35 [facility] Work Phone: Iron measurement (mass/mass) on 10-25-2021 Iron (Unsp spec) [Mass/Mass] 16 ug/dL 65-175 [facility] Work Phone: Laboratory - Chemistry and C hemistry - challengeon 10-25-2021 ALP [Catalytic activity/Vol] 39 U/L 45-117 [facility] Work Phone: ALT [Catalytic activity/Vol] 19 U/L 16-61 [facility] Work Phone: CO2 [Moles/Vol] 25.0 mmol/L 21.0-32.0 [facility] Work Phone: Globulin (S) [Mass/Vol] 3.0 g/dL 2.2-4.2 [facility] Work Phone: Urea nitrogen/Creatinine [Mass ratio] 17.4 mg/mg 10-20 [facility] Work Phone: Laboratory - Hematology and Cell countson 10-25-2021 Erythrocyte distribution width (RBC) [Entitic vol] 41.9 fL 35.1-43.9 [facility] Work Phone: Erythrocyte distribution width (RBC) [Ratio] 14.6 % 11.6-14.6 [facility] Work Phone: Immature granulocytes/100 WBC (Bld) 0.200 % 0.0-0.9 [facility] Work Phone: Comment on above: IG% - Immature Granu locytes (promyelocytes, myelocytes and metamyelocytes) > 1% indicates that a LEFT SHIFT is Present. MCH (RBC) [Entitic mass] 24.5 pg 27.0-32.0 [facility] Work Phone: Nucleated RBC/100 WBC (Bld) [Ratio] 0 % 0-5 [facility] Work Phone: MCHC Auto (RBC) [Mass/Vol]on 10-25-2021 MCHC (RBC) [Mass/Vol] 31.3 g/dL 32-36 [facility] Work Phone: No Panel Informationon 10-25 Estimated GFR (MDRD) Amer 78 mL/min >60 [facility] Work Phone: Comment on above: GFR Calc Estimated GFR (MDRD) Non-Af Amer 65 mL/min >60 [facility] Work Phone: Comment on above: Non- GFR Calc Immature Reticulocyte Fraction 24.60 % 3.00-15.90 [facility] Work Phone: Reticulocyte Count 1.90 % 0.5-1.5 [facility] Work Phone: Thyroid Stimulating Hormone (TSH) 1.43 uIU/mL 0.358-3.74 [facility] Work Phone: Total Iron Binding Capacity 451 ug/dL 250-450 [facility] Work Phone: Platelets bldon 10-25-2021 Platelets (Bld) [#/Vol] 429 10*3/uL 150-450 [facility] Work Phone: Serum or plasma albumin alisson urement (mass/volume)on 10-25-2021 Albumin [Mass/Vol] 3.7 g/dL 3.2-5.0 [facility] Work Phone: Serum or plasma albumin/glob ulin mass ratioon 10-25-2021 Albumin/Globulin [Mass ratio] 1.2 {ratio} 0.9-2.4 [facility] Work Phone: Serum or plasma calcium alisson urement (mass/volume)on 10-25-2021 Calcium [Mass/Vol] 8.3 mg/dL 8.5-10.1 [facility] Work Phone: Serum or plasma creatinine m easurement (mass/volume)on 10-25-2021 Creatinine [Mass/Vol] 1.15 mg/dL 0.70-1.30 [facility] Work Phone: Comment on above: The validity of the calculated GFR & GFRAA in patients over 70 years has not been determined. Clinical correlation is essential. Serum or plasma ferritin ronen surement (mass/volume)on 10-25-2021 Ferritin [Mass/Vol] 7 ng/mL 26-388 [facility] Work Phone: Serum or plasma iron saturat ion measurement (mass fraction)on 10-25-2021 Iron saturation [Mass fraction] 3.5 % 15.0-55.0 [facility] Work Phone: Serum or plasma urea nitroge n measurement (mass/volume)on 10-25-2021 Urea nitrogen [Mass/Vol] 20 mg/dL 7-18 [facility] Work Phone: Thin prep Papanicolaou smear with manual screeningon 10-25-2021 Thin prep Papanicolaou smear with manual screening 13 U/L 15-37 [facility] Work Phone: Thin prep Papanicolaou smear with manual screening 6 5-15 [facility] Work Phone: Office Visit: New patient/fr equent bronchitison 06-12-2017 Documentation of current medications (procedure) Done Invalid Interpretation Code [facility] Work Phone: Tobacco smoking status WAIS Never Invalid Interpretation Code [facility] Work Phone: Tobacco smoking status NHIS Tobacco smoking status NHIS Invalid Interpretation Code [facility] Work Phone: Tobacco use [facility] Never smoker Invalid Interpretation Code [facility] Work Phone: Vital Signs Date Time Vital Sign Value Performing Clinician Facility 10-26-2024 09:36-0400 Body height 193.[address] Gladis Nava MD Work Phone: [facility] 10-26-2024 09:36-0400 Body weight 111.[address] Gladis Nava MD Work Phone: [facility] 10-21-2024 08:09-0400 Body mass index (BMI) [Ratio] 29.5 kg/m2 Dr. Gladis Nava MD Work Phone: 2(067)624-497117 [place] [address] 10-21-2024 08:09-0400 Body temperature 98 [degF] Dr. Gladis Nava MD Work Phone: 5(437)612-698217 [place] [address] 10-21-2024 08:09-0400 Body weight 110.[address] Gladis Nava MD Work Phone: 1(661)876-150017 [address] [place] [address] 10-21-2024 08:09-0400 Diastolic blood pressure 87 mm[Hg] Dr. Gladis Nava MD Work Phone: 6(923)316-043117 [address] [place] [address] 10-21-2024 08:09-0400 Heart rate 98 /min Dr. Gladis Nava MD Work Phone: 4(289)224-806417 [place] [address] 10-21-2024 08:09-0400 Respiratory rate 20 /min Dr. Gladis Nava MD Work Phone: 7(010)165-773917 [address] [place] [address] 10-21-2024 08:09-0400 SaO2% (BldA) [Mass fraction] 95 % Dr. Gladis Nava MD Work Phone: 6(392)127-969017 [place] [address] 10-21-2024 08:09-0400 Systolic blood pressure 150 mm[Hg] Dr. Gladis Nava MD Work Phone: 2(856)813-070917 [place] [address] 07-28-2024 16:18-0500 Heart rate 90 /min Dr. Gladis Nava MD Work Phone: 1(223)775-599017 [place] [address] 07-28-2024 16:18-0500 Respiratory rate 16 /min Dr. Gladis Nava MD Work Phone: 8(829)112-626317 [address] [place] [address] 07-28-2024 15:00-0500 Body height 193.[address] Gladis Nava MD Work Phone: 1(761)682-[address] [place] [address] 07-28-2024 15:00-0500 Body mass index (BMI) [Ratio] 31.4 kg/m2 Dr. Gladis Nava MD Work Phone: [facility] 07-28-2024 15:00-0500 Body temperature 97.2 [degF] Dr. Gladis Nava MD Work Phone: [facility] 07-28-2024 15:00-0500 Body weight 117.[address] Gladis Nava MD Work Phone: [facility] 07-28-2024 15:00-0500 Diastolic blood pressure 82 mm[Hg] Dr. Gladis Nava MD Work Phone: [facility] 07-28-2024 15:00-0500 SaO2% (BldA) [Mass fraction] 97 % Dr. Gladis Nava MD Work Phone: [facility] 07-28-2024 15:00-0500 Systolic blood pressure 183 mm[Hg] Dr. Gladis Nava MD Work Phone: [facility] 11-29-2023 11:01-0400 Body height 191.8 cm Marlon Del Valle MD Work Phone: [facility] 11-29-2023 11:01-0400 Body mass index (BMI) [Ratio] 32.07 kg/m2 Marlon Del Valle MD Work Phone: [facility] 11-29-2023 11:01-0400 Body temperature 98.01 [degF] Marlon Del Valle MD Work Phone: [facility] 11-29-2023 11:01-0400 Body weight 117.94 kg Marlon Del Valle MD Work Phone: [facility] 11-29-2023 11:01-0400 Diastolic blood pressure 88 mm[Hg] Marlon Del Valle MD Work Phone: [facility] 11-29-2023 11:01-0400 Heart rate 72 /min Marlon Del Valle MD Work Phone: [facility] 11-29-2023 11:01-0400 Systolic blood pressure 185 mm[Hg] Marlon Del Valle MD Work Phone: [facility] 09-27-2023 10:51-0400 Body height 193 cm Marlon Del Valle MD Work Phone: [facility] 09-27-2023 10:51-0400 Body temperature 97.7 [degF] Marlon Del Valle MD Work Phone: [facility] 09-06-2022 10:54-0500 SaO2% (BldA) [Mass fraction] 90 % Dr. Gladis Nava Work Phone: [facility] 09-06-2022 10:00-0500 Inhaled oxygen flow rate 2 L/min Dr. Gladis Nava Work Phone: [facility] 09-06-2022 09:56-0500 Body temperature 97.7 [degF] Dr. Gladis Nava Work Phone: [facility] 09-06-2022 09:56-0500 Diastolic blood pressure 62 mm[Hg] Dr. Gladis Nava Work Phone: [facility] 09-06-2022 09:56-0500 Heart rate 77 /min Dr. Gladis Nava Work Phone: [facility] 09-06-2022 09:56-0500 Respiratory rate 17 /min Dr. Gladis Nava Work Phone: [facility] 09-06-2022 09:56-0500 Systolic blood pressure 152 mm[Hg] Dr. Gladis Nava Work Phone: [facility] 09-05-2022 15:20-0500 Body height 193.[address] Gladis Nava Work Phone: [facility] 09-04-2022 16:01-0500 Body weight [address] Gladis Nava Work Phone: [facility] 09-03-2022 23:35-0500 Inhaled oxygen concentration 35 % Dr. Gladis Nava Work Phone: [facility] 09-03-2022 22:06-0500 Body mass index (BMI) [Ratio] 31.1 kg/m2 Dr. Gladis Nava Work Phone: [facility] 09-03-2022 21:38-0500 Body temperature 98.2 [degF] Dr. Gladis Nava Work Phone: [facility] 09-03-2022 21:38-0500 Diastolic blood pressure 76 mm[Hg] Dr. Gladis Nava Work Phone: [facility] 09-03-2022 21:38-0500 Heart rate 75 /min Dr. Gladis Nava Work Phone: 3(489)332-997417 [place] [address] 09-03-2022 21:38-0500 Inhaled oxygen flow rate 3 L/min Dr. Gladis Nava Work Phone: 6(093)079-452421 [address] 09-03-2022 21:38-0500 Respiratory rate 20 /min Dr. Gladis Nava Work Phone: [facility] 09-03-2022 21:38-0500 SaO2% (BldA) [Mass fraction] 94 % Dr. Gladis Nava Work Phone: [facility] 09-03-2022 21:38-0500 Systolic blood pressure 160 mm[Hg] Dr. Gladis Nava Work Phone: [facility] 09-03-2022 16:48-0500 Body height 190.[address] Gladis Nava Work Phone: [facility] 09-03-2022 16:48-0500 Body mass index (BMI) [Ratio] 31.6 kg/m2 Dr. Gladis Nava Work Phone: [facility] 09-03-2022 16:48-0500 Body weight [address] Gladis Nava Work Phone: [facility] 07-31-2022 06:41-0500 Body mass index (BMI) [Ratio] 31.1 kg/m2 Dr. Gladis Nava Work Phone: [facility] 07-31-2022 06:41-0500 Body temperature 97.5 [degF] Dr. Gladis Nava Work Phone: [facility] 07-31-2022 06:41-0500 Body weight 116.[address] Gladis Nava Work Phone: [facility] 07-31-2022 06:41-0500 Diastolic blood pressure 69 mm[Hg] Dr. Gladis Nava Work Phone: [facility] 07-31-2022 06:41-0500 Heart rate 71 /min Dr. Gladis Nava Work Phone: [facility] 07-31-2022 06:41-0500 Respiratory rate 18 /min Dr. Gladis Nava Work Phone: [facility] 07-31-2022 06:41-0500 SaO2% (BldA) [Mass fraction] 99 % Dr. Gladis Nava Work Phone: [facility] 07-31-2022 06:41-0500 Systolic blood pressure 143 mm[Hg] Dr. Gladis Nava Work Phone: [facility] 06-12-2017 05:35-0500 BMI (Body Mass Index) 28.48 kg/m2 Joleen Roman LPN [facility] Work Phone: 06-12-2017 05:35-0500 Body Temperature 97.5 [degF] Joleen Roman LPN [facility] Work Phone: 06-12-2017 05:35-0500 BP Diastolic 74 mm[Hg] Joleen Jessie WESLEYN [facility] Work Phone: 06-12-2017 05:35-0500 BP Systolic 146 mm[Hg] Joleen Roman LPN [facility] Work Phone: 06-12-2017 05:35-0500 Height 193.04 cm Joleen Yensho COMPENSATION AND BENEFITS ANALYST [facility] Work Phone: 06-12-2017 05:35-0500 Respiratory Rate 18 /min Joleen Jessie COMPENSATION AND BENEFITS ANALYST [facility] Work Phone: 06-12-2017 05:35-0500 Weight 106.14 kg Joleen Yecalvin COMPENSATION AND BENEFITS ANALYST [facility] Work Phone: Encounters Encounter Date Encounter Type Care Provider Facility Start: 01-25-2025 ambulatory Gladis Nava Facility:[facility] Start: 01-10-2025 Emergency department patient visit [facility] Facility:[facility] Start: 11-16-2024 End: 11-16-[address] Gladis Nava MD Work Phone: [facility] Work Phone: Start: 11-16-2024 End: 11-16-[address] [facility] Start: 11-16-2024 End: 11-16-2024 ambulatory Gladis Nava Facility:[facility] Start: 10-26-2024 End: 11-11-[address] Gladis Nava MD -Nutritional Servic es Work Phone: Start: 10-26-2024 End: 11-11-2024 ambulatory Gladis Nava Facility:[facility] Start: 10-21-2024 End: 10-21-2024 Patient encounter procedure Lissette Flores 911 OPERATOR-C -[facility] Work Phone: Start: 10-21-2024 End: 10-21-2024 ambulatory Gladis Nava Facility:[facility] Start: 10-01-2024 End: 10-01-[address] Gladis Nava MD Work Phone: [facility] Work Phone: Start: 10-01-2024 End: 10-01-[address] Gladis Nava MD -Physical Therapy Work Phone: Start: 09-18-[address] Gladis Nava MD -Physical Therapy Work Phone: Start: 09-10-2024 End: 09-10-[address] Gladis Nava MD Work Phone: [facility] Work Phone: Start: 09-10-2024 End: 09-10-[address] Gladis Nava MD -Laboratory, [facility] Start: 09-10-2024 End: 09-10-2024 ambulatory Gladis Nava Facility:[facility] Start: 08-13-2024 End: 08-13-[address] Gladis Nava MD -Laboratory, [place] Work Phone: Start: 08-13-2024 End: 08-13-2024 ambulatory [facility] Start: 08-06-2024 End: 08-06-[address] Gladis Nava MD -Laboratory, [place] Work Phone: Start: 08-06-2024 End: 08-06-2024 ambulatory Gladismaster Nava [facility] Start: 07-28-2024 End: 07-28-2024 Emergency department patient visit Dr. Jaya Quick DO -Emergency Department Work Phone: Start: 07-28-2024 End: 07-28-[address] Gladis Nava MD -Laboratory, [facility] Start: 07-28-2024 End: 07-28-2024 ambulatory Gladis Nava Facility:[facility] Start: 07-27-2024 End: 07-27-[address] Gladis Nava MD -Radiology, [place] Work Phone: Start: 07-27-2024 End: 07-27-2024 ambulatory Gladis [place] Facility:[facility] Start: 11-29-2023 ambulatory [facility] Start: 11-29-2023 End: 11-29-2023 ambulatory [facility] Start: 11-29-2023 End: 11-29-2023 Encounter for other preprocedural examination [facility] Start: 11-29-2023 End: 11-29-2023 Office outpatient visit 40 minutes Marlon Del Valle MD Work Phone: [facility] Comment on above: BPH with obstruction /lower urinary tract symptoms (Primary Dx); Preop testing; 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 Start: 11-29-2023 End: 11-29-2023 Patient encounter status Marlon Del Valle MD Work Phone: [facility] Start: 10-30-2023 End: 10-30-2023 ambulatory [facility] Start: 10-30-2023 End: 10-30-2023 Office outpatient visit 25 minutes Marlon Del Valle MD Work Phone: [facility] Comment on above: BPH with obstruction /lower urinary tract symptoms (Primary Dx); Urinary frequency; Need for prophylactic antibiotic Start: 10-11-2023 End: 10-12-2023 ambulatory [facility] Start: 10-11-2023 End: 10-11-2023 Subsequent hospital visit by physician [facility] Comment on above: BPH with obstruction /lower urinary tract symptoms Start: 09-27-2023 End: 09-27-2023 ambulatory [facility] Start: 09-27-2023 End: 09-27-2023 Office outpatient new 45 minutes Marlon Del Valle MD Work Phone: [facility] Comment on above: BPH with obstruction /lower urinary tract symptoms (Primary Dx); Urinary frequency Start: 06-17-2023 End: 06-17-2023 ambulatory [facility] Work Phone: Start: 06-17-2023 End: 06-17-2023 Patient encounter procedure [facility] Start: 09-20-2022 End: 09-20-[address] Gladis Nava Work Phone: [facility] Work Phone: Start: 09-20-2022 End: 09-20-[address] Gladis Nava Work Phone: [facility] Start: 09-06-2022 Non-patient / Non-visit Dr. Robert Nava Work Phone: [facility] Start: 09-05-2022 Non-patient / Non-visit Dr. Robert Nava Work Phone: [facility] Start: 09-04-2022 End: 09-06-2022 Evaluation and management of inpatient [facility] Start: 09-04-2022 Non-patient / Non-visit Dr. Robert Nava Work Phone: [facility] Start: 09-03-2022 Non-patient / Non-visit Dr. Robert Nava Work Phone: [facility] Start: 09-03-2022 Evaluation and manag ement of inpatient Dr. Gladis Nava [facility] Start: 09-03-[address] Gladis Nava Work Phone: [facility] Work Phone: Start: 07-31-2022 End: 07-31-[address] Gladis Nava Work Phone: [facility]-Pulmonary Medicine [facility] Start: 03-27-2022 End: 03-27-2022 ambulatory [facility] Work Phone: Start: 03-27-2022 End: 03-27-2022 Patient encounter procedure [facility] Start: 12-25-2021 End: 12-25-2021 Patient encounter procedure [facility] Start: 11-02-2021 End: 11-02-2021 Patient encounter procedure [facility] Start: 10-26-2021 End: 10-26-2021 Patient encounter procedure [facility] Start: 10-25-2021 End: 10-25-2021 Patient encounter procedure [facility]-Laboratory, [facility] Procedures Date Procedure Procedure Detail Performing [...] or Pulmonary Embolism (PE)CRITICAL VALUE CALLED TO [id number] [facility] Mahsa Chandra.RESULTS READ BACK BY SAME. Start: 07-28-2024 Electrophoresis: [id number] Dr. Gladis Nava MD Work Phone: Start: 07-28-2024 Electrophoresis: [id number] Dr. Gladis Nava MD Work Phone: Start: [...] Treatment Date Care Activity Detail Author Start: 07-28-2024 [facility] Start: 03-15-2024 Influenza vaccination Influenza Vaccine (Season Ended) [facility] Start: 12-27-2023 End: 12-27-2023 Admission to same day surgery center 12/27/2023 10:55 AM EDT - 12/27/2023 12:20 PM [place] [address] [place] [address] [place] [address] [place], [place] [id number] Greenlight Photoselective Vaporization of Prostate ( Green light - 3rd case or later. [92242 (CPT )] [facility] [place] Comment on above: Greenlight Photoselective Vaporization o f Prostate ( Green light - 3rd case or later. [84150 (CPT )] Start: 12-27-2023 End: 12-27-2023 Laser vaporization of prostate for urine flow Ablation Transurethral Prostate BPH with obstruction/lower urinary tract symptoms 12/27/2023 10:55 AM EDT [facility] [place] Start: 12-27-2023 Subsequent hospital visit by physician 12/27/2023 9:25 AM EDT Hospital [place] [address] [place] [address] [place] [address] [place] [address] [facility] [place] Start: 12-18-2023 End: 12-18-2023 Admission to establishment 12/18/2023 12:45 PM EDT Pre-Admission Testing [facility] [id number] [place] [id number] [facility] Start: 12-13-2023 End: 01-29-2024 Bacteria identified in Urine by Culture Urine Culture Microbiology Routine BPH with obstruction/lower urinary tract symptoms Preop testing Expected: 12/13/2023 (Approximate), Expires: 01/29/2024 [facility] Work Phone: Comment on above: Expected: 12/13/2023 (Approximate), Expi res: 01/29/2024 Start: 12-13-2023 End: 11-28-2024 Basic metabolic 2000 panel - Serum or Plasma Basic Metabolic Panel Lab Routine BPH with obstruction/lower urinary tract symptoms Preop testing Expected: 12/13/2023 (Approximate), Expires: 11/28/2024 [facility] Work Phone: Comment on above: Expected: 12/13/2023 (Approximate), Expi res: 11/28/2024 Start: 12-13-2023 End: 01-29-2024 CBC panel - Blood by Automated count CBC Lab Routine BPH with obstruction/lower urinary tract symptoms Preop testing Expected: 12/13/2023, Expires: 01/29/2024 [facility] Work Phone: Comment on above: Expected: 12/13/2023, Expires: Start: 12-13-2023 End: 11-28-2024 Prothrombin time (PT) Protime-INR Lab Routine BPH with obstruction/lower urinary tract symptoms Preop testing 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 Expected: 12/13/2023 (Approximate), Expires: 11/28/2024 [facility] Work Phone: Comment on above: Expected: 12/13/2023 (Approximate), Expi res: 11/28/2024 Start: 11-29-2023 End: 11-28-2024 Request for Pre-Admission Testing Visit Request for Pre-Admission Testing Visit Procedures Routine Preop testing Expected: 11/29/2023 (Approximate), Expires: 11/28/2024 [facility] Service Area Work Phone: Comment on above: Expected: 11/29/2023 (Approximate), Expi res: 11/28/2024 Start: 10-30-2023 End: 10-30-2023 Telemedicine consultation with patient 10/30/2023 2:20 PM EDT Telemedicine [facility] [address] [address] [place] [address] [place] [address] [facility] Start: 10-30-2023 End: 10-29-2024 Cystourethroscopy Cystourethroscopy Procedure Routine BPH with obstruction/lower urinary tract symptoms Expected: 10/30/2023 (Approximate), Expires: 10/29/2024 [facility] Service Area Work Phone: Comment on above: Expected: 10/30/2023 (Approximate), Expi res: 10/29/2024 Start: 10-11-2023 End: 10-11-2023 Patient encounter procedure 10/11/2023 9:30 AM EDT Appointment [address] [id number] [facility] Start: 09-27-2023 End: 09-26-2024 MR Prostate MR prostate with conor boundaries Imaging Routine BPH with obstruction/lower urinary tract symptoms Expected: 09/27/2023, Expires: 09/26/2024 [facility] Service Area Work Phone: Comment on above: Expected: 09/27/2023, Expires: 5 Start: 03-15-2023 COVID-19 Vaccine ( season) COVID-19 Vaccine ( season) [facility] Start: 03-15-2023 Influenza vaccination Influenza Vaccine (#1) [facility] Start: 09-06-2022 Patient discharge [facility] Start: 09-05-2022 Physiotherapy of chest [facility] Start: 09-04-2022 Continuous positive [facility] [facility] Start: 09-04-2022 Admission procedure [facility] Start: 09-04-2022 Inhalation therapy procedure [facility] Start: 09-03-2022 Following clinical pathway protocol [facility] Start: 09-03-2022 Assessment of risk of venous thromboembolism [facility] Start: 09-03-2022 Insertion of catheter into peripheral vein [facility] Start: 09-03-2022 Measuring intake and output [facility] Start: 09-03-2022 Oxygen therapy [facility] Start: 09-03-2022 Providing care according to standard [facility] Start: 09-03-2022 Provision of activity privileges [facility] Start: 09-03-2022 Referral to service [facility] Start: 09-03-2022 Viral nucleic acid assay [facility] Start: 09-03-2022 End: 09-03-2022 Factor V Leiden genotype [facility] Start: 09-03-2022 End: 09-03-2022 [facility] Start: 09-03-2022 Verification routine [facility] Start: 09-03-2022 Admission procedure [facility] Start: 09-03-2022 Blood culture [facility] Start: 09-03-2022 Patient referral to dietitian [facility] Start: 01-31-2020 Pneumococcal Vaccine: 65+ Years (2 - PPSV23 or PCV20) Pneumococcal Vaccine: 65+ Years (2 - PPSV23 or PCV20) [facility] Start: 03-27-2019 Pneumococcal Vaccine: 65+ Years (2 of 2 - PPSV23 or PCV20) Pneumococcal Vaccine: 65+ Years (2 of 2 - PPSV23 or PCV20) [facility] Start: 07-24-2017 End: 07-24-2017 Appointment Appointment [facility] Phone: Start: 06-12-2017 End: 06-12-2017 [facility] Phone: Start: 06-12-2017 End: 06-12-2017 Follow Up Appt 6 weeks Follow Up Appt 6 weeks [facility] Phone: Start: 06-12-2017 End: 06-12-2017 Pulmonary Function Test - complete Pulmonary Function Test - complete [facility] Phone: Start: 06-12-2017 End: 06-12-2017 Appointment Appointment [facility] Phone: Start: 1999 RSV patients and/or patients aged 60+ years (1 - 1-dose 60+ series) RSV patients and/or patients aged 60+ years (1 - 1-dose 60+ series) [facility] Start: 1961 DTaP/Tdap/Td Vaccines (1 - Tdap) DTaP/Tdap/Td Vaccines (1 - Tdap) [facility] Start: 1939 Lipid panel Lipid Panel [facility] Start: 1939 Medicare Annual Wellness Visit Medicare Annual Wellness Visit (AWV) [facility] Antithrombin III assay [facility] Antithrombin III ass ay, functional [facility] Bacteria identified in Blood by Culture Blood Culture [facility] Bacteria identified in Blood by Culture Blood Culture [facility] Beta 2 glycoprotein 1 IgA Ab [Presence] in Serum [facility] Beta 2 glycoprotein 1 IgG Ab [Presence] in Serum [facility] Beta 2 glycoprotein 1 IgM Ab [Presence] in Serum [facility] Cardiolipin IgG Ab [Units/volume] in Serum or Plasma [facility] Cardiolipin IgM Ab [Units/volume] in Serum or Plasma [facility] F5 gene mutations fo und [Identifier] in Blood or Tissue by Molecular genetics method Nominal [facility] MR Prostate MR prostate with conor boundaries Imaging Routine BPH with obstruction/lower urinary tract symptoms 10/11/2023 11:15 AM EDT [facility] Service Area Work Phone: Patient referral [facility] Work Phone: Protein C [Units/vol ume] in Platelet poor plasma by Coagulation assay [facility] Protein C Ag actual/ normal in Platelet poor plasma by Immunoassay [facility] SARS-CoV-2 (COVID-19 ) Ag [Presence] in Respiratory specimen by Rapid immunoassay [facility] Targeted analysis fo r gene mutation [facility] Immunizations Immunization Date Immunization Notes Care Provider Fa cility 09-23-2020 Covid (Moderna) [facility] 08-26-2020 Covid (Moderna) [facility] 06-02-2020 influenza virus vaccine, unspecified formulation Marlon Del Valle MD Work Phone: [facility] Work Phone: 06-25-2019 Fluad 2018- 65yr up(PF)45 mcg(15 mcgx3)/0.5 mL intramuscular syringe (flu vac [facility] Work Phone: 06-12-2017 [id number] Joleen Roman LPN [facility] Work Phone: Payers Date Payer Category Payer Self-pay [id number] 2023 Medicare ANTHEM MEDICARE [facility] MEDICARE ADVANTAGE [id number] 2023-Present [address] [place] [address] [id number] 2023 Medicare [id number] 2004 Medicare [id number] 1939 Unknown [id number] 1939 Unknown [id number] 2.16.840.1.693841.3.579.2.1244 1939 Unknown [id number] 2.16.840.1.357690.3.579.2.1244 1939 Unknown [id number] 2.16.840.1.451176.3.579.2.1244 1939 Unknown [id number] 2.16.840.1.525888.3.579.2.1244 Medicare MMO MEDICARE [id number] Unknown [id number] Unknown [id number] Unknown AARP [id number] Unknown [facility] [id number] Unknown [id number] 2.16.840.1.160894.3.579.2.462 Unknown [id number] 2.16.840.1.882644.3.579.2.462 Unknown [id number] 2.16.840.1.634519.3.579.2.462 Unknown [id number] 2.16.840.1.221784.3.579.2.462 Unknown [id number] 2.16.840.1.736398.3.579.2.462 Unknown [id number] 2.16.840.1.449638.3.579.2.462 Unknown [id number] 2.16.840.1.961973.3.579.2.462 Unknown [id number] 2.16.840.1.499942.3.579.2.462 Unknown [id number] 2.16.840.1.199793.3.579.2.462 Unknown [id number] 2.16.840.1.637896.3.579.2.462 Unknown [id number] 2.16.840.1.897505.3.579.2.462 Unknown [id number] 2.16.840.1.573226.3.579.2.462 Social History Date Type Detail Facility Start: 04-27-2021 End: 01-14-2023 Tobacco smoking status WAIS Unknown if ever smoked [facility] Start: 1940 Sex Assigned At Male [facility] Start: 09-27-2023 End: 07-28-2024 Tobacco smoking status NHIS Never smoked tobacco [facility] Work Phone: Start: 09-27-2023 Tobacco use and exposure Smokeless tobacco non-user [facility] Work Phone: Start: 1940 Sex Assigned At Not on file [facility] Work Phone: Start: 09-27-2023 End: 11-29-2023 Gender identity Not on file [facility] Work Phone: Start: 09-17-2023 End: 11-29-2023 Exposure to SARS-CoV-2 (event) Not sure [facility] Start: 09-27-2023 End: 11-29-2023 History of Social function [facility] Work Phone: Start: 09-22-2024 End: 10-05-2024 Sex Male (finding) [facility] Goals Date Patient Goal Desired Activity /State Functional Status Date Assessment Result Facility 09-06-2022 Functional status Ambulates [facility] Work Phone: Mental Status Date Assessment Result Facility 07-28-2024 Cognitive function Level Of Cons ciousness Awake;Alert;Appropriate;Follow s Commands [facility] Work Phone: 09-06-2022 Cognitive function Voice/Name [facility] Work Phone: Clinical Notes 09-03-2022 to 10-21-2024 Note Date & Type Note Facility 10-21-2024 Evaluation note Diagnosis Onset Date Resolution Irregular heart rhythm acute Ap 2024 3:16pm Memory impairment acute October 212024 3:16pm Asthma chronic October 21 3:16pm FREDI (obstructive sleep apnea) chronic October 21, 2024 3:16pm [facility] Work Phone: 1(946) 840-829603-20-2025 Discharge summary Author Gladis Jones [facility] Note Date/Time October 01, 2024 7:0 0pm [facility] Physical Therapy [address] [place] [address] / REHABILITATION SERVICES DISCHARGE SUMMARY MR#: [id number] Acct: [id number] Name: IGORCINDY Diana Rep #: [id number] : 1940 84 From: Gladis Jones DPT, [...] please feel free to call me at [phone]. Thank you for the referral of thispatient. Sincerely, Gladis Jones DPT, ELIZABETH, CSCS Balance/Gait/Functional tests Balance/Special Test Scores Functional Gait Assessment Score: 23 % Disability: 23.3400 CATSIB Score (Max score 120 seconds): 62 Lower Extremity Functional Score: 70 Improvement % Improvement: 80 <Electronically signed by ELIZABETH Alas DPT, CSCS> 10/01/24 1202 CC: Dr. Gladis Nava MD ~ EBG Signed [facility] Work Phone: 1(648) 825-880903-20-2025 Discharge summary [facility] [address] [place] [address] / REHABILITATION SERVICES DISCHARGE SUMMARY MR#: [id number] Acct: [id number] Name: CINDY COSTA Rep #: [id number] : 1940 84 From: Gladis Jones DPT, OCS, CSCS Referring Dr.: Dr. Gladis Nava MD Status: REG RCR Insurance: [facility] MEDICARE [employer] [place] SELF PAY INSURANCE Discharge [...] please feel free to call me at [phone]. Thank you for the referral of thispatient. Sincerely, Gladis Jones, DPT, OCS, CSCS Balance/Gait/Functional tests Balance/Special Test Scores Functional Gait Assessment Score: 23 % Disability: 23.3400 CATSIB Score (Max score 120 seconds): 62 Lower Extremity Functional Score: 70 Improvement % Improvement: 80 10/01/24 1202 CC: Dr. Gladis Nava MD ~ EBG Signed [facility]05-17-2024 History of Present illness Narrative* Marlon Del Valle MD - 11/29/2023 11:20 AM EDT Scribed for Dr. Marlon Del Valle by [...] the Virtual Scribe. 11/29/23 documented in this [facility] Work Phone: 1(849) 653-239604-17-2024 History of Present illness Narrative* Marlon Del [...] by the Virtual Scribe. [facility] Work Phone: 1(995) 249-801004-17-2024 Instructions* Patient Instructions* Elvie Galvan RN - 10/30/2023 2:20 PM EDT Take antibiotic 1 hour prior to cystoscopy. We will need a urine sample during that appointment, so please arrive with a full enough bladder toleave a sample. There are no restrictions in medications, eating/drinking, and driving. [facility] Work Phone: 1(168) 677-435603-15-2024 History of Present illness Narrative* Marlon Del [...] agreed with the information entered by the VirtualScribe. 09/27/23 [facility] Work Phone: 1([phone] 182-151603-15-2024 Instructions* Patient Instructions* Elvie Galvan RN - 09/27/2023 11:00 AM EDT Call [phone] to schedule your MRI [facility] Work Phone: 1(465) 580-604902-23-[address] Sue [facility] September 06, 2022 11:31am Note Date/Time September 06, 2022 8:35am [facility] Medical Records Department [address] [place] [address] Progress Note - Hospitalist 09/06/22833 MR#: [id number] Acct: [id number] Name: CINDY COSTA Rep #:[id number] : 1940 82 From: Gladis Sue DO PCP: Dr. Gladis Nava MD Status:ADM IN Location: [place] [address] Reason for Visit Reason for Visit: Diagnoses [...] 09/05/22 09/06/22 23:59 23:59 23:59 Intake Total 7.21 / 2036. 1100 / 1100 175.38 / 175.38 Output [...] 70.2 H, Lymph % (Auto) 13.2 L, [place] % (Auto) 10.0, Eos % (Auto) 5.3 [...] hep drip 09/06/22 1131 <Electronically signed by Galdis Sue DO> Cosigner Signature (if applicable): CC: ~ Signed [facility] Work Phone: 1(682) 855-116902-22-[address] Sue [facility] September 05, 2022 3:19pm Note Date/Time September 05, 2022 8:56am [facility] Medical Records Department [address] [place] [address] Progress Note - Hospitalist 09/05/22 0850 MR#: [id number] Acct: [id number] Name: CINDY COSTA Rep #:[id number] : 1940 82 From: Gladis Sue DO PCP: Dr. Gladis Nava MD Status:ADM IN Location: [place] [address] Reason for Visit Reason for Visit: Diagnoses [...] 23:59 23:59 23:59 Intake Total 7.21 / 2037.21 250 / 250 Output Total 1080 / [...] Physician: Gladis Nava MD Performed By: Tan Paz, T Physical Exam Const alert and no apparent [...] pulmonary hypertension. Charges/Coding Visit Charges Inpatient E&M: 55880 Subs Hosp L2 09/05/22 1519 <Electronically signed by Gladis Sue DO> Cosigner Signature (if applicable): CC: ~ Signed [facility] Work Phone: 1(397) 569-793802-21-[address] Sue [facility] September 04, 2022 12:25pm Note Date/Time September 04, 2022 8:19am [facility] Medical Records Department [address] [place] [address] Progress Note - Hospitalist 09/04/2215 MR#: [id number] Acct: [id number] Name: CINDY COSTA Rep #:[id number] : 1940 82 From: Gladis Sue DO PCP: Dr. Gladis Nava MD Status:ADM IN Location: [place] [address] Reason for Visit Reason for Visit: Diagnoses [...] 75.5 H, Lymph % (Auto) 9.9 L, [place] %(Auto) 11.6 H, Eos % (Auto) 2.3, [...] 71.6 H, Lymph % (Auto) 14.0 L, [place] % (Auto) 10.6 H, Eos % (Auto) [...] 18:22 EST Reading Location ID and State: [employer] [facility] [place] Tel [phone], Service support , Chest CTA 09/03/22 18:42 IMPRESSION: 1. Diffuse bilateral pulmonary emboli, as above. 2. No aortic dissection or aneurysm. 3. No acute pulmonary disease. 4. Hiatal hernia. Electronically Signed: Davion Lopez DO at 20:12 EST Reading Location ID and State: [facility] / [place] Tel [phone], Service support , ADDENDUM: 09/03/222022 IMPRESSION: 1. Diffuse bilateral pulmonary emboli, as above. 2. No aortic dissection or aneurysm. 3. No acute pulmonary disease. 4. Hiatal hernia. N.B. : The above Results were Read Back by Davion Lopez DO to Franklin Cervantes MD, and understanding confirmed on 09/03/2022 20:17:00 (ET). Electronically Signed: Davion Lopez DO at 20:12 EST Reading Location ID and State: [facility] [place] Tel [phone], Service support , Physical Exam Const alert [...] hep drip Charges/Coding Visit Charges Inpatient E&M: 15383 Subs Hosp L3 09/04/22 1225 <Electronically signed by Gladis Sue DO> Cosigner Signature (if applicable): CC: ~ Signed [facility] Work Phone: 1(675) 295-189202-21-[address] Cervantes [facility] September 03, 2022 10:45pm Note Date/Time September 03, 2022 5:23pm [facility] Medical Records Department [address] [place] [address] Emergency Department Summary 09/03/22 MR#: [id number] Acct: [id number] Name: CINDY COSTA Rep #:[id number] : 1940 82 From: Franklin Cervantes DO PCP: Dr. Gladis Nava MD Status:ADM MAMTA Location: [address] History of Present Illness Chief Complaint: Shortness of Breath Detail of Chief Complaint: Shortness of breath and weakness Informant: patient and spouse/S.O. Narrative Narrative: Patient presents the emergency department complaint of shortness of breath and generalized weakness. Patient states that the breathing recently became more labored yesterday and people noticed it in protestant. Patient states he is actually been feeling [...] of CHF. Does have history of asthma. [facility] Medical History (Updated 09/03/22 @ 20:28 by [...] established on arrival. Patient placed on a front desk monitor. EKG obtained showed sinus rhythm with a [...] 75.5 H Lymph % (Auto) 9.9 L [place] % (Auto) 11.6 H Eos % (Auto) [...] (Auto) Neut % (Auto) Lymph % (Auto) [place] % (Auto) Eos % (Auto) Baso % [...] 18:22 EST Reading Location ID and State: [facility] [place] Tel [phone], Service support , Chest CTA 09/03/22 18:42 IMPRESSION: 1. Diffuse bilateral pulmonary emboli, as above. 2. No aortic dissection or aneurysm. 3. No acute pulmonary disease. 4. Hiatal hernia. Electronically Signed: Davion Lopez DO at 20:12 EST Reading Location ID and State: [facility] / [place] Tel [phone], Service support , ADDENDUM: 09/03/222022 IMPRESSION: 1. Diffuse bilateral pulmonary emboli, as above. 2. No aortic dissection or aneurysm. 3. No acute pulmonary disease. 4. Hiatal hernia. N.B. : The above Results were Read Back by Davion Lopez DO to Franklin Cervantes MD, and understanding confirmed on 09/03/2022 20:17:00 (ET). Electronically Signed: Davion Lopez DO at 20:12 EST Reading Location ID and State: [facility] [place] Tel [phone], Service support , 1 view chest x-ray [...] Provider] - Disposition Disposition: Acute Care Hospital [facility] What to do if you have Problems For any increased pain, shortness of breath, bleeding, nausea or vomiting, chestpain, or any unexpected problems, contact your Primary Care Provider. Call [facility] ([phone]) or report to the closest Emergency Room. Call 911 if necessary. 09/03/222244 <Electronically signed by Franklin Cervantes DO> Cosigner Signature (if applicable): CC: Dr. Gladis Nava MD ~ Signed [facility] Work Phone: 1(256) 355-665802-20-2023 History and physical note Author Dr. Manuel [facility] September 03, 2022 9:23pm Note Date/Time September 03, 2022 9:23pm [facility] Medical Records Department [address] [place] [address] H&P Exam - Hospitalist 09/03/222102 MR#: [id number] Acct: [id number] Name: CINDY COSTA Rep #:[id number] : 1940 82 From: Noemi Manuel MD PCP: Dr. Gladis Nava MD Status:ADM MAMTA Location: [place] [address] HPI - General General Date of Admission: 09/03/22 Date of Service: 09/03/22 Chief Complaint: Dyspnea on exertion HPI Narrative CINDY COSTA, is a 82 M with a history of FREDI on CPAP, GERD, hypertension who presented to [facility] 09/03/2022 with worsening shortness of breath on [...] that been unchanged, no other complaints voiced. [facility] Medical History (Updated 09/03/22 @ 20:28 by [...] 75.5 H, Lymph % (Auto) 9.9 L, [place] %(Auto) 11.6 H, Eos % (Auto) 2.3, [...] 18:22 EST Reading Location ID and State: [facility] [facility] [place] Tel [phone], Service support , Chest CTA 09/03/22 18:42 IMPRESSION: 1. Diffuse bilateral pulmonary emboli, as above. 2. No aortic dissection or aneurysm. 3. No acute pulmonary disease. 4. Hiatal hernia. Electronically Signed: Davion Lopez DO at 20:12 EST Reading Location ID and State: [facility] [place] Tel [phone], Service support , ADDENDUM: 09/03/222022 IMPRESSION: 1. Diffuse bilateral pulmonary emboli, as above. 2. No aortic dissection or aneurysm. 3. No acute pulmonary disease. 4. Hiatal hernia. N.B. : The above Results were Read Back by Davion Lopez DO to Franklin Cervantes MD, and understanding confirmed on 09/03/2022 20:17:00 (ET). Electronically Signed: Davion Lopez DO at 20:12 EST Reading Location ID and State: [facility] Tel [phone], Service support , Assessment & Plan Assessment/Plan [...] will hold lisinopril #DVT ppx: On hep rosita Manuel MD Time spent in the patient's overall evaluation,decision-making process, review of diagnostic data, adjustment of management, discussion with other providers, nursing nursing and ancillary staff involved in patient's care documentation, 60minutes Charges/Coding Visit Charges Inpatient E&M: 50462 Init Hosp L2 09/03/222122 <Electronically signed by Noemi Manuel MD> Cosigner Signature (if applicable): CC: Dr. Gladis Nava MD; Dr. Noemi Manuel MD~ Signed [facility] Work Phone: Discharge summary Author Dr. Sue [facility] September 06, 2022 11:37am Note Date/Time September 06, 2022 11:34am [facility] Medical Records Department [address] [place] [address] Instructions for Home/Discharge Instructions 09/06/22 1133 MR#: [id number] Acct: [id number] Name: CINDY COSTA Rep #:[id number] : 1940 82 From: Gladis Sue DO [...] MD; Dr. Noemi Manuel MD ~ Signed [facility] Work Phone: Discharge summary Author Dr. Sue [facility] September 06, 2022 11:38am Note Date/Time September 06, 2022 11:38am [facility] Medical Records Department [address] [place] [address] Discharge Summary 09/06/22 1137 MR#: [id number] Acct: [id number] Name: CINDY COSTA Rep #:[id number] : 1940 82 From: Gladis Sue DO PCP: Dr. Gladis Nava MD Status:ADM IN Location: [place] [address] Providers Date of Admission: 09/04/22 Primary Care [...] 70.2 H, Lymph % (Auto) 13.2 L, [place] % (Auto) 10.0, Eos % (Auto) 5.3 [...] Self Care Charges/Coding Visit Charges Inpatient E&M: 53573 Disch Hosp >30min 09/06/22 1138 <Electronically signed by Gladis Sue DO> Cosigner Signature (if applicable): CC: Dr. Gladis Sue DO; Dr. Gladis Nava MD~ Signed [facility] Work Phone: Evaluation noteNo assessment information available [facility] Work Phone: Evaluation note* Diagnosis Onset Date Resolution Status Asthma chronic FREDI (obstructive sleep apnea) chronic Elevated troponin acute Exertional dyspnea acute Hypoxemia acute Pulmonary emboli acute FREDI (obstructive sleep apnea) chronic [facility] Work Phone: Evaluation note* Diagnosis Onset Date Resolution Status Asthma chronic FREDI (obstructive sleep apnea) chronic Acute respiratory failure with hypoxia acute DVT (deep venous thrombosis) acute Elevated troponin acute Exertional dyspnea acute Hypoxemia acute NSTEMI, initial episode of care acute Pulmonary emboli acute Pulmonary hypertension acute FREDI (obstructive sleep apnea) chronic [facility] Work Phone: Evaluation note* Diagnosis Onset Date Resolution Status Acute respiratory failure with hypoxia resolved Elevated troponin resolved Exertional dyspnea resolved Hypoxemia resolved NSTEMI, initial episode of care resolved [facility] Work Phone: Evaluation note* Diagnosis BPH with obstruction/lower urinary tract symptoms- Primary Urinary frequency documented in this encounter [facility] Work Phone: Evaluation note* Diagnosis BPH with obstruction/lower urinary tract symptoms documented in this encounter [facility] Work Phone: Evaluation note* Diagnosis BPH with obstruction/lower urinary tract symptoms- Primary Urinary frequency Need for prophylactic antibiotic Encounter for long-term (current) use of antibiotics documented in this encounter [facility] Work Phone: Evaluation note* Diagnosis BPH with obstruction/lower urinary tract symptoms- Primary Preop testing Unspecified pre-operative examination 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 Manuel [facility] September 03, 2022 9:23pm Note Date/Time September 03, 2022 9:23pm [facility] Medical Records Department [address] [place] [address] H&P Exam - Hospitalist 09/03/222102 MR#: [id number] Acct: [id number] Name: CINDY COSTA Rep #:[id number] : 1940 82 From: Noemi Manuel MD PCP: Dr. Gladis Nava MD Status:ADM MAMTA Location: [place] [address] HPI - General General Date of Admission: 09/03/22 Date of Service: 09/03/22 Chief Complaint: Dyspnea on exertion HPI Narrative CINDY COSTA, is a 82 M with a history of FREDI on CPAP, GERD, hypertension who presented to [facility] 09/03/2022 with worsening shortness of breath on [...] that been unchanged, no other complaints voiced. [facility] Medical History (Updated 09/03/22 @ 20:28 by [...] 75.5 H, Lymph % (Auto) 9.9 L, [place] %(Auto) 11.6 H, Eos % (Auto) 2.3, [...] 18:22 EST Reading Location ID and State: [place] / [place] Tel [phone], Service support , Chest CTA 09/03/22 18:42 IMPRESSION: 1. Diffuse bilateral pulmonary emboli, as above. 2. No aortic dissection or aneurysm. 3. No acute pulmonary disease. 4. Hiatal hernia. Electronically Signed: Davion Lopez DO at 20:12 EST Reading Location ID and State: [facility] / [place] Tel [phone], Service support , ADDENDUM: 09/03/222022 IMPRESSION: 1. Diffuse bilateral pulmonary emboli, as above. 2. No aortic dissection or aneurysm. 3. No acute pulmonary disease. 4. Hiatal hernia. N.B. : The above Results were Read Back by Davion Lopez DO to Franklin Cervantes MD, and understanding confirmed on 09/03/2022 20:17:00 (ET). Electronically Signed: Davion Lopez DO at 20:12 EST Reading Location ID and State: [address] [place] [address] Tel [phone], Service support , Assessment & Plan Assessment/Plan [...] documentation, 60minutes Charges/Coding Visit Charges Inpatient E&M: 89701 Init Hosp L2 09/03/222122 <Electronically signed by Noemi Manuel MD> Cosigner Signature (if applicable): CC: Dr. Gladis Nava MD; Dr. Noemi Manuel MD~ Signed [facility] Work Phone: Reason for referral (narrative)No reason for referral information [facility]WC[facility] Work Phone: Chief Complaint and Reason for [...] Recorded Date/ Time Living Will Yes February 28 8 11:32am Power of Metal Furniture Assembler Yes February 28, 2 018 11:32am Advance Directive Response Recorded Date/ Time Living Will No September 03 023 5:47pm Power of Metal Furniture Assembler No September 03, 2022 5:47pm Advance Directive Response Recorded Date/ Time Living Will No September 03 2 023 10:06pm Power of Metal Furniture Assembler No September 03, 2022 10:06pm Advance Directive Response Recorded Date/ Time Living Will No September 03 2 023 11:06pm Power of Metal Furniture Assembler No September 03, 2022 11:06pm Advance Directive Response Recorded Date/ Time Living Will No July 28 4:50pm Power of Metal Furniture Assembler No July 28, 2024 4:50pm Advance Directive Response Recorded Date/ Time Living Will No July 28 4:50pm Do you have a Healthcare Power of Metal Furniture Assembler? No July 28, 2024 4:50pm Advance Directive Response Recorded Date/ Time Living Will No September 03 11:06pm Do you have a Healthcare Power of Metal Furniture Assembler? No September 03, 2022 11:06pm Living Will No July 28 4:50pm Do you have a Healthcare Power of Metal Furniture Assembler? No July 28, 2024 4:50pm Reason for Referral Specialty Diagnoses / Procedures Referred By Contac t Referred To Contact Radiology Diagnoses BPH with obstruction/lower urinary tract symptoms Procedures MR prostate [place] [address] [facility] [place] [address] Referral ID Status Reason Start Date Expiration Date Visits Requested Visits Authorized [id number] Pending Review Perform Procedure 09/27/2023 09/26/2024 1 1 Referral ID Status Reason Start Date Expiration Date Visits Requested Visits Authorized [id number] Authorized Perform Procedure 09/27/2023 09/26/2024 1 1 Specialty Diagnoses / Procedures Referred By Contac t Referred To Contact Diagnoses BPH with obstruction/lower urinary tract symptoms Procedures [place] [address] [place] [address] Referral ID Status Reason Start Date Expiration Date V isits Requested Visits Authorized [id number] Pending Review 10/30/2023 10/29/2024 1 1 Summary [...] Nava MD Primary Care Provider, Referring P rovider Active Dr. Kash Calle DO Attending Provider Active Team Status: Active Member [...] Noemi Manuel MD Admit Provider, Attending Provid er Active Team Status: Active Member Role [...] Gladis Nava MD Primary Care Provider, Attending P rovider Active Weight Calculator Relationship Specialty Start Date End Date Gladis Nava MD [address] [facility] [address] [place] [address] PCP - General Family Medicine 09/27/23 Weight Calculator Relationship Specialty Start Date End Date Gladis Nava MD [address] [facility] [address] [place] [address] PCP - General Family Medicine 09/27/23 Weight Calculator Relationship Specialty Start Date End Date Gladis Nava MD [address] [facility] [address] [place] [address] PCP - General Family Medicine 09/27/23 Weight Calculator Relationship Specialty Start Date End Date Gladis Nava MD [address] [facility] [address] [place] [address] PCP - General Family Medicine 09/27/23 Team Status: Active Member Role Status Dates Dr. Gladis Nava MD Primary Care Provider Active Team Status: Inactive Member Role Status Dates Dr. Gladis aNva MD Primary Care Provider Active Start: July [...] 06, 2024 End: August 06, 2024 Dr. Galdis Nava MD Referring Provider Active St art: [...] 2024 End: October 21, 2024 Lissette Flores 911 OPERATOR, 911 OPERATOR-C Attending Provider Active Start: October 21, 2024 [...] Dr. Gladis Nava MD Attending Provider Active art: November 16, 2024 End: November 16, 2024 Dr. Gladis Nava MD Referring Provider Active art: November 16, 2024 End: November 16, 2024 Reason for Visit (unrecogniz ed section and content) Reason Comments New Patient Visit Specialty Diagnoses / Procedures Referred By Contac t Referred To Contact Radiology Diagnoses BPH with obstruction/lower urinary tract symptoms Procedures MR prostate [place] [address] [facility] [address] [place] [address] Referral ID Status Reason Start Date Expiration Date Visits Requested Visits Authorized [id number] Authorized Perform Procedure 09/27/2023 09/26/2024 1 1 Reason Comments Follow-up MRI results Reason Comments Follow-up Cystoscopy (unrecognized sect ion and content) No Status Records FoundNo Status Records FoundNo Status Records FoundNo Status Records Found INFORMATION SOURCE (unrecogn ized section and content) DATE CREATED AUTHOR 10/17/2023 [facility] DATE CREATED AUTHOR AUTHOR'S ORGANIZ ATION 12/01/2023 [facility] DATE CREATED AUTHOR AUTHOR'S ORGANIZ ATION 12/02/2023 [facility] DATE CREATED AUTHOR AUTHOR'S ORGANIZ ATION 01/10/2025 [facility] FOR RECORDS PERTAINING TO PATIENTS WHO ARE [...] BE BASED ON THE PRIMARY CLINICAL RECORDS. [employer] provides no warranty or guarantee of the accuracy or completeness of information in this document.
--- NOTE | 2025-01-10 17:15 | RAD_ITS ---
PROCEDURE: ANKLE MIN 3 VIEWS; FOOT MIN 3 VIEWS 01/10/2025 REASON FOR EXAM: L FT KIML SWELL POST FALL BUT ALSO CELLULITIS TECHNIQUE: Three views each of the left foot and left ankle COMPARISON: None FINDINGS: Postoperative changes from open reduction internal fixation of the distal fibula. No hardware fracture or perihardware lucency. An ossification adjacent to the medial malleolus may represent sequela of remote injury. The talar dome appears intact. No significant ankle joint effusion. Small plantar heel spur. There is soft tissue swelling about the ankle, predominantly medially. No radiopaque foreign body. Bone mineral density is subjectively normal. Degenerative changes throughout the forefoot. RAD/Ankle min 3 Views IMPRESSION: 1. Soft tissue swelling about the ankle, without radiopaque foreign body. 2. Postoperative changes of the distal fibula, without evidence of hardware co mplication. Reading Location: DO
[2025-01-10 17:16] LABS: Color, Urine Yellow (Yellow); Glucose, Dipstick 1000 mg/dl (Normal); Ketone-Dipstick 15 mg/dl (Negative); Leukocyte Esterase-Dipstick 25 /ul (Negative); Nitrite-Dipstick Negative (Negative); Occult Blood-Urine 10 /ul (Negative); Protein-Dipstick 15 mg/dl (Negative); Urine Bilirubin Dipstick Negative (Negative); Urine Clarity Sl. Cloudy (Clear); Urine Urobilinogen Normal (Normal); Urine pH 6.5 (5.0 - 8.0)
[2025-01-10 17:21] LABS: Bacteria 1+ /hpf (None Seen); Mucous, Urine 1+ /hpf (<or=2+); Red Blood Cells-Urine 0-5 SEEN /hpf (0-5); Squamous Epithelial Cells - UA 0-5 SEEN /hpf (0-5); White Blood Cells 5-10 SEEN /hpf (0-5)
[2025-01-10] MEDS: 0.9% Normal Saline (1000mL) 1,000 ML 50 ML IV (17:40)
--- NOTE | 2025-01-10 18:00 | RAD_ITS ---
PROCEDURE: ANKLE MIN 3 VIEWS; FOOT MIN 3 VIEWS 01/10/2025 REASON FOR EXAM: L FT KIML SWELL POST FALL BUT ALSO CELLULITIS TECHNIQUE: Three views each of the left foot and left ankle COMPARISON: None FINDINGS: Postoperative changes from open reduction internal fixation of the distal fibula. No hardware fracture or perihardware lucency. An ossification adjacent to the medial malleolus may represent sequela of remote injury. The talar dome appears intact. No significant ankle joint effusion. Small plantar heel spur. There is soft tissue swelling about the ankle, predominantly medially. No radiopaque foreign body. Bone mineral density is subjectively normal. Degenerative changes throughout the forefoot. RAD/Foot min 3 Views IMPRESSION: 1. Soft tissue swelling about the ankle, without radiopaque foreign body. 2. Postoperative changes of the distal fibula, without evidence of hardware co mplication. Reading Location: DO
[2025-01-10 18:02] LABS: Bedside Glucose 113 mg/dL (74-106)
[2025-01-10] MEDS: Budesonide Respules 0.5 MG/2 ML AMPUL.NEB. INHALATION (20:35)
[2025-01-10] MEDS: Senna/Docusate Sodium 1 Tablet 2 TABLET PO (21:12)
[2025-01-10] MEDS: Albuterol 2.5 MG/3 ML VIAL.NEB. INHALATION (22:35)
[2025-01-11] MEDS: Ampicillin/Sulbactam 3 GM in 0.9% Normal Saline (100mL MB+) 100 ML IV ×3 (00:29→11:09)
[2025-01-11 03:21] VITALS: BP 154/58; PULSE 84; RESP 16; TEMP 37.1; O2SAT 96
[2025-01-11 06:04] LABS: Absolute Lymphocyte Count 0.69 X10^3/uL (0.83-4.51); Absolute Neutrophil Count 6.3 X10^3/uL (2.0-7.7); Basophil# 0.03 X10^3/uL; Basophil% 0.4 % (0-1); Eosinophil# 0.02 X10^3/uL; Eosinophils% 0.2 % (0-5); Hematocrit 40.9 % (40-54); Hemoglobin 13.7 g/dL (13.0-16.5); Lymphocyte # 0.69 X10^3/ul (0.83-4.51); Lymphocyte % 8.4 % (19-41); Mean Corp Hgb Conc 33.5 g/dL (32-36); Mean Corpuscular Hgb 30.4 pg (27.0-32.0); Mean Corpuscular Volume 90.9 fL (80-94); Mean Platelet Vol. 9.2 fl (6.2-12.0); Monocyte# 1.12 X10^3/uL; Monocyte% 13.7 % (0-10); NRBC Flagged by Analyzer 0 % (0-5); Neutrophil % 76.9 % (47-70); Platelet Count 203 K/mm3 (150-450); RBC Distribution Width CV 13.7 % (11.6-14.6); RBC Distribution Width SD 45.6 fl (35.1-43.9); White Blood Count 8.2 K/mm3 (4.4-11.0)
[2025-01-11 06:53] LABS: Anion Gap 13 (5-15); BUN 22 mg/dL (4-19); BUN/Creat Ratio 17.1 RATIO (10-20); Calcium,Total 8.6 mg/dL (7.6-11.0); Carbon Dioxide 21.5 mmol/L (21.0-32.0); Chloride 105 mmol/L (98-108); Creatinine, Serum 1.27 mg/dL (0.70-1.20); EST Glomerular Filtration Rate 55 (>60); Estimated Creatinine Clearance 58.25 ml/min (50-250); Glucose 120 mg/dL (70-99); Magnesium 2.2 mg/dL (1.5-2.2); Potassium 3.9 mmol/L (3.3-5.1); Sodium Level 139 mmol/L (133-145); Thyroid Stim Hormone (TSH) 0.954 uIU/mL (0.300-4.200)
[2025-01-11 07:19] LABS: Bedside Glucose 134 mg/dL (74-106)
[2025-01-11 07:30] VITALS: PULSE 73; RESP 16
[2025-01-11] MEDS: Budesonide Respules 0.5 MG/2 ML AMPUL.NEB. INHALATION (07:30)
[2025-01-11] MEDS: Albuterol 2.5 MG/3 ML VIAL.NEB. INHALATION (07:30)
[2025-01-11 07:56] VITALS: BP 138/62; PULSE 81; RESP 16; TEMP 36.9; O2SAT 94
[2025-01-11] MEDS: Enoxaparin 40 MG/0.4 ML Syringe SC (08:02)
[2025-01-11] MEDS: Ramipril 2.5 MG Capsule PO (08:03)
[2025-01-11] MEDS: Senna/Docusate Sodium 1 Tablet 2 TABLET PO (08:03)
[2025-01-11] MEDS: Donepezil HCl 10 MG Tablet PO (08:03)
[2025-01-11] MEDS: Escitalopram Oxalate 10 MG Tablet PO (08:04)
--- NOTE | 2025-01-11 10:28 | DCINST_ITS ---
Discharge Instructions Diet Discharge Diet: 1800 Calorie Control Diet DC O2, CPAP, BIPAP needs Home O2 Discharge instructions: No Dressing / Incision Discharge Activity: Return to Normal Activity Weight Bearing Status: Full weight bearing Follow Up Care Test Results: Test results from this visit will be discussed in further detail at your follow- up appointment, if applicable. Discharge Plan Admission Admit Date/Time: 01/10/25 15:43 Primary Reason for Your Visit: cellulitis left leg Attending Provider: Chucky Sanchez Primary Care Provider: David Nava Consulting Providers: Noemi Manuel Discharge Orders/Prescriptions Prescriptions: New furosemide [Lasix] 40 mg tablet 40 mg PO DAILY Qty: 30 0RF amoxicillin-pot clavulanate 875-125 mg tablet 1 tab PO BID Qty: 14 0RF Rx Instructions: take with food Continued ramipril 2.5 mg capsule 2.5 mg PO DAILY Patient Comments: TAKE 1 CAPSULE BY MOUTH ONCE DAILY fluticasone propionate 50 mcg/actuation spray,suspension 2 spray intranasal DAILY Qty: 16 3RF albuterol sulfate 90 mcg/actuation HFA aerosol inhaler 2 puff inhalation Q4H PRN (Reason: shortness of breath or wheezing) Qty: 8.5 6RF Rx Instructions: administer with spacer dapagliflozin propanediol [Farxiga] 10 mg tablet 10 mg PO QDAY Januvia 100 mg tablet 100 mg PO QDAY donepezil 10 mg tablet 10 mg PO QDAY ferrous sulfate 325 MG tablet 325 mg PO DAILY Qty: 90 0RF escitalopram oxalate 10 mg tablet 10 mg PO DAILY fluticasone propion-salmeterol [Wixela Inhub] 500-50 mcg/dose blister with device 1 inh INHALATION BID Qty: 60 11RF Referrals / Follow Up: Dvaid Nava MD [Primary Care Provider] - In 1 Week Disposition Disposition (needs filled in before D/C Order can be placed): Home, Self Care
--- NOTE | 2025-01-11 10:36 | PCM.DC.SUM ---
Providers Date of Admission: 01/10/25 Date of Discharge: 01/11/25 Primary Care Physician: Dr. David Nava MD Reason For Visit: LLE CELLULITIS Diagnosis Discharge Diagnosis (1) Cellulitis of left leg: Status: Acute Code(s): L03.116 - Cellulitis of left lower limb Plan 1. Cellulitis of the left lower leg #2 dementia #3 asthma #4 PACs and PVCs Medications at Discharge Home Medications ferrous sulfate 325 mg (65 mg iron) tablet 325 mg PO DAILY #90 tabs 03/04/18 fluticasone propionate 50 mcg/actuation nasal spray,suspension 2 spray intranasal DAILY #16 grams 01/14/23 ramipril 2.5 mg capsule 2.5 mg PO DAILY 01/14/23 albuterol sulfate 90 mcg/actuation aerosol inhaler 2 puff inhalation Q4H PRN shortness of breath or wheezing #8.5 grams 10/16/23 fluticasone 500 mcg-salmeterol 50 mcg/dose blistr powdr for inhalation (Wixela Inhub) 1 inh inhalation BID #60 ea 09/24/24 dapagliflozin propanediol 10 mg tablet (Farxiga) 10 mg PO QDAY 10/21/24 donepezil 10 mg tablet 10 mg PO QDAY 10/21/24 sitagliptin phosphate 100 mg tablet (Januvia) 100 mg PO QDAY 10/21/24 escitalopram oxalate 10 mg tablet 10 mg PO DAILY 01/10/25 amoxicillin 875 mg-potassium clavulanate 125 mg tablet 1 tab PO BID #14 tabs 01/11/25 furosemide 40 mg tablet (Lasix) 40 mg PO DAILY #30 tabs 01/11/25 Hospital Course Operations None Procedures None Summary of Care Provided Minutes Spent on Discharge: 31 Hospital Course: This 84-year-old white male was seen in the emergency room at [facility] with complaints of redness over to his left lower leg. Patient has a history of dementia. Workup in the emergency room included a CBC which showed white blood cell count of 12,000, patient's chemistry panel showed a creatinine of 1.37 and a BUN of 22 there is generalized edema over both lower legs-there was an area of redness noted over the patient's left lower leg. Patient was admitted to [place] [address] for cellulitis and placed on IV antibiotics. The following day the area looked less reddened. Patient was noted to have an irregular heartbeat but EKG obtained showed only PVCs and PACs. There was no evidence of atrial fibrillation. On 01/11/2025, patient was seen and examined: On examination he appeared in good health and spirits. Vital signs as documented. Skin warm and dry and without overt rashes. Neck without JVD, neck was supple, trachea midline, thyroid was normal. Lungs clear bilaterally, normal air movement was noted. Heart exam notable for regular rhythm, normal sounds and absence of murmurs, rubs or gallops. Abdomen unremarkable and without evidence of organomegaly, masses, or abdominal aortic enlargement. Bowel sounds are present, abdomen is not distended. Extremities edematous, red areas were noted over the patient's left lower leg, no cyanosis was noted, no clubbing was noted. Neuro: Cranial nerves II through XII are grossly intact, no focal motor deficits were noted, sensation to light touch and pinprick intact, motor exam 5/5 throughout. Psych: Patient is alert and oriented x3, he does not appear anxious or depressed, he does not appear agitated.. On 01/11/2025, patient was seen and examined and felt to be stable for discharge home. Weight / BMI Weight Weight: 111.9 kg Body Mass Index (BMI) 30.0 ABG / Lab / Microbiology Data 01/11/25 04:55 01/11/25 04:55 Laboratory: Laboratory Results - last 24 hr 01/11/25 04:55: WBC 8.2, RBC 4.50 L, Hgb 13.7, Hct 40.9, MCV 90.9, MCH 30.4, MCHC 33.5, RDW Std Deviation 45.6 H, RDW Coeff of Candy 13.7, Plt Count 203, MPV 9.2, Immature Gran % (Auto) 0.400, Neut % (Auto) 76.9 H, Lymph % (Auto) 8.4 L, [place] % (Auto) 13.7 H, Eos % (Auto) 0.2, Baso % (Auto) 0.4, Absolute Neuts (auto) 6.3, Absolute Lymphs (auto) 0.69 L, Nucleated RBC % 0, Sodium 139, Potassium 3.9, Chloride 105, Carbon Dioxide 21.5, Anion Gap 13, BUN 22 H, Creatinine 1.27 H, Estim Creat Clear Calc 58.25, Est GFR (MDRD) Non-Af 55 L, BUN/Creatinine Ratio 17.1, Glucose 120 H, Calcium 8.6, Magnesium 2.2, TSH 0.954 01/11/25 06:54: POC Glucose 134 H 01/11/25 11:11: POC Glucose 120 H Radiography Diagnostic Testing: Radiology Impression Chest X-Ray 01/10/25 14:12 IMPRESSION: Negative Chest. Reading Location: [id number] Ankle X-Ray 01/10/25 17:15 IMPRESSION: 1. Soft tissue swelling about the ankle, without radiopaque foreign body. 2. Postoperative changes of the distal fibula, without evidence of hardware complication. Reading Location: [id number] Foot X-Ray 01/10/25 18:00 IMPRESSION: 1. Soft tissue swelling about the ankle, without radiopaque foreign body. 2. Postoperative changes of the distal fibula, without evidence of hardware complication. Reading Location: [id number] D/C Instructions Discharge Diet: 1800 Calorie Control Diet Weight Bearing Status: Full weight bearing DC O2, CPAP, BIPAP Needs Home O2 Discharge instructions: No Meaningful Use Info Meaningful Use Meaningful Use Diagnoses (Choose all that apply): None applicable Ischemic Stroke Statin Dosing Therapy Reference: STATIN DOSE THERAPY REFERENCE: * Patients > 75 years receive moderate or high dose statin therapy. * Patients 75 years or YOUNGER should receive HIGH intensity statin dose unless contraindicated. You will be required to document reason for non-treatment if statin daily dose does not meet guidelines. HIGH DOSE STATIN THERAPY DAILY Atorvastatin > than or = to 40 mg Rosuvastatin > than or = to 20 mg Amlodipine + Atorvastatin > than or = to 2.5/40 mg Ezetimibe + Simvastatin 10/80 mg Simvastatin 80mg Discharge Plan Admission Admit Date/Time: 01/10/25 15:43 Primary Reason for Your Visit: cellulitis left leg Attending Provider: Chucky Sanchez Primary Care Provider: David Nava Consulting Providers: Noemi Manuel Discharge Orders/Prescriptions Prescriptions: New furosemide [Lasix] 40 mg tablet 40 mg PO DAILY Qty: 30 0RF amoxicillin-pot clavulanate 875-125 mg tablet 1 tab PO BID Qty: 14 0RF Rx Instructions: take with food Continued ramipril 2.5 mg capsule 2.5 mg PO DAILY Patient Comments: TAKE 1 CAPSULE BY MOUTH ONCE DAILY fluticasone propionate 50 mcg/actuation spray,suspension 2 spray intranasal DAILY Qty: 16 3RF albuterol sulfate 90 mcg/actuation HFA aerosol inhaler 2 puff inhalation Q4H PRN (Reason: shortness of breath or wheezing) Qty: 8.5 6RF Rx Instructions: administer with spacer dapagliflozin propanediol [Farxiga] 10 mg tablet 10 mg PO QDAY Januvia 100 mg tablet 100 mg PO QDAY donepezil 10 mg tablet 10 mg PO QDAY ferrous sulfate 325 MG tablet 325 mg PO DAILY Qty: 90 0RF escitalopram oxalate 10 mg tablet 10 mg PO DAILY fluticasone propion-salmeterol [Wixela Inhub] 500-50 mcg/dose blister with device 1 inh INHALATION BID Qty: 60 11RF Referrals / Follow Up: David Nava MD [Primary Care Provider] - In 1 Week Disposition Disposition (needs filled in before D/C Order can be placed): Home, Self Care Charges/Coding Visit Charges Inpatient E&M: 42231 Disch Hosp >30min
--- NOTE | 2025-01-11 10:59 | EKG12_ITS ---
Test Reason : afib Blood Pressure : */* mmHG Vent. Rate : 83 BPM Atrial Rate : 83 BPM P-R Int : 184 ms QRS Dur : 88 ms QT Int : 360 ms P-R-T Axes : * -7 31 degrees QTcB Int : 423 ms Sinus rhythm with occasional Premature ventricular complexes and Premature atrial complexes Nonspecific T wave abnormality Abnormal ECG When compared with ECG of 10-Jan-2025 14:01, MANUAL COMPARISON REQUIRED DATA IS UNCONFIRMED Confirmed by LEELEE JORDAN, CAIT ([id number]), health editor IRVING PRINGLE ([id number]) on 01/13/2025 1:54:30 PM Referred By: Justin Nixon Confirmed By: CAIT MCKOY MD
[2025-01-11 11:38] LABS: Bedside Glucose 120 mg/dL (74-106)
--- NOTE | 2025-01-11 11:42 | PHA.DC_ITS ---
Pharmacy [facility] has performed discharge medication reconciliation and counseling for this patient. 1. AUGMENTIN 875MG PO BID X 7 DAYS 2. FUROSEMIDE 40MG PO DAILY The patient's discharge medication list was reviewed for discrepancies and discrepancies were resolved. The patient was counseled on the following discharge medications and changes in medications for homegoing were reviewed. The Reason for Use, instructions for use, and potential side effects were reviewed for all new medications. The patient's questions regarding all of their medications were answered. The patient was able to verbally demonstrate an understanding of their discharge medications. Medications at Discharge Home Medications ferrous sulfate 325 mg (65 mg iron) tablet 325 mg PO DAILY #90 tabs 03/04/18 fluticasone propionate 50 mcg/actuation nasal spray,suspension 2 spray intra nasal DAILY #16 grams 01/14/23 ramipril 2.5 mg capsule 2.5 mg PO DAILY 01/14/23 albuterol sulfate 90 mcg/actuation aerosol inhaler 2 puff inhalation Q4H PRN shortness of breath or wheezing #8.5 grams 10/16/23 fluticasone 500 mcg-salmeterol 50 mcg/dose blistr powdr for inhalation (Wixela Inhub) 1 inh inhalation BID #60 ea 09/24/24 dapagliflozin propanediol 10 mg tablet (Farxiga) 10 mg PO QDAY 10/21/24 donepezil 10 mg tablet 10 mg PO QDAY 10/21/24 sitagliptin phosphate 100 mg tablet (Januvia) 100 mg PO QDAY 10/21/24 escitalopram oxalate 10 mg tablet 10 mg PO DAILY 01/10/25 amoxicillin 875 mg-potassium clavulanate 125 mg tablet 1 tab PO BID #14 tabs 01/11/25 furosemide 40 mg tablet (Lasix) 40 mg PO DAILY #30 tabs 01/11/25
== END 2025-01-11 12:43 | disposition home or self-care (01) | DRG 603 ==
LOC: ED 15:27 → MS3 01-11 07:19
PROVIDERS: Physician Assistant; Admitting Provider Internal Medicine; Emergency Provider Emergency Medicine; PCP Family Medicine; Referring Provider Emergency Medicine; Visit Provider Internal Medicine
DX: L03.116 Cellulitis of left lower limb (principal); F03.A0 Unspecified dementia, mild, without behavioral disturbance, psychotic disturbance, mood disturbance, and anxiety; E11.9 Type 2 diabetes mellitus without complications; F32.A Depression, unspecified; I10 Essential (primary) hypertension; J45.909 Unspecified asthma, uncomplicated; E78.5 Hyperlipidemia, unspecified; G47.33 Obstructive sleep apnea (adult) (pediatric); F41.9 Anxiety disorder, unspecified; I49.3 Ventricular premature depolarization; M62.81 Muscle weakness (generalized); R29.6 Repeated falls; R60.0 Localized edema; Z79.51 Long term (current) use of inhaled steroids; Z79.84 Long term (current) use of oral hypoglycemic drugs; Z79.899 Other long term (current) drug therapy; Z86.711 Personal history of pulmonary embolism; Z86.718 Personal history of other venous thrombosis and embolism; I44.0 Atrioventricular block, first degree; D50.9 Iron deficiency anemia, unspecified; I49.1 Atrial premature depolarization
CPT/HCPCS: 36415; 71045; 73610; 73630; 80048; 81001; 82962; 83605; 83735; 84443; 85025; 87040; 93005; 94640; 94660; 96365; 96366; 96372; 97162; 97166; 99221; 99285; A4216; G0378; J0295

== ENCOUNTER → 2025-05-28 | Outpatient (CLI) | payer MEDICARE, SELFPAY ==
[2025-05-28 12:21] LABS: Hematocrit 45.4 % (40-54); Hemoglobin 15.2 g/dL (13.0-16.5); Immature Granulocytes Count 0.050 X10^3/uL (0.0-0.0); Mean Corp Hgb Conc 33.5 g/dL (32-36); Mean Corpuscular Volume 91.7 fL (80-94); Mean Platelet Vol. 9.2 fl (6.2-12.0); NRBC Flagged by Analyzer 0 % (0-5); Platelet Count 327 K/mm3 (150-450); RBC Distribution Width CV 12.6 % (11.6-14.6); RBC Distribution Width SD 42.5 fl (35.1-43.9); Red Blood Count 4.95 M/mm3 (4.6-6.2); White Blood Count 8.1 K/mm3 (4.4-11.0)
[2025-05-28 12:53] LABS: AST(SGOT) 14 U/L (<=37); Alanine Aminotransfer ALT/SGPT 8 U/L (<=46); Albumin, Serum 4.4 g/dL (3.4-4.8); Alkaline Phosphatase 51 U/L (40-129); Anion Gap 11 (5-15); BUN 20 mg/dL (4-19); BUN/Creat Ratio 18.3 RATIO (10-20); Calcium,Total 9.7 mg/dL (7.6-11.0); Carbon Dioxide 24.1 mmol/L (21.0-32.0); Chloride 103 mmol/L (98-108); Globulin 3.2 g/dL (2.2-4.2); Glucose 137 mg/dL (70-99); Magnesium 2.4 mg/dL (1.5-2.2); Potassium 4.3 mmol/L (3.3-5.1)
[2025-05-31 15:08] LABS: PROEL- A/G Ratio 1.1 (0.7-1.7); PROEL- Albumin 3.8 g/dL (2.9-4.4); PROEL- Alpha-1 Globulin 0.2 g/dL (0.0-0.4); PROEL- Alpha-2 Globulin 0.9 g/dL (0.4-1.0); PROEL- Beta Globulin 1.2 g/dL (0.7-1.3); PROEL- Gamma Globulin 1.1 g/dL (0.4-1.8); PROEL- Globulin, Total 3.4 g/dL (2.2-3.9); PROEL- TOTAL PROTEIN 7.2 g/dL (6.0-8.5); PROEL-M-Spike Not Observed g/dL (Not Observed)
== END | disposition home or self-care (01) ==
LOC: MFPLAB 10:34
PROVIDERS: PCP Family Medicine; Visit Provider Family Medicine
DX: M62.81 Muscle weakness (generalized) (principal); E11.9 Type 2 diabetes mellitus without complications
CPT/HCPCS: 36415; 80053; 83036; 83735; 84165; 84443; 85025; 85652